=== PATIENT | male | born 1955 | race Caucasian/White ===

== ENCOUNTER 2017-09-09 18:34 | Inpatient (IN) | payer SELFPAY ==
[~2017-09-09] VITALS: Ht 180.3 cm; Wt 89.0 kg
[~2017-09-09 18:34] MED LIST: CPR500T PO; GBPN300C PO; HYDR-2890 PO; HYDR1TAB PO; LISI1TAB6 PO; LSNP10T PO; METR500T PO; MTF500T PO; POLY17PO23 GT; TRAM50TA2 PO; TRM50T PO; [UNRECOGNIZED DRUG - OTHER] PO
--- OUTSIDE RECORDS SUMMARY | 2017-09-09 18:38 | XMS REPORT | Continuity of Care Document ---
Author Author [facility] Organization [facility] Address Unknown Phone Unavailable Allergies There is no data. Medications There is no data. Problems Date Dx Coded Attending Type Code Diagnosis Diagnosed By 03/21/2013 250.60 DIABETES WITH NEUROLOGICAL MANIFESTATIONS TYPE II OR UNSPECIFIED TYPE NOT STATED UNCONTROLLED 03/21/2013 401.1 HYPERTENSION, BENIGN ESSENTIAL 03/21/2013 553.1 UMBILICAL HERNIA WITHOUT OBSTRUCTION OR GANGRENE 03/21/2013 V11.3 PERSONAL HISTORY OF ALCOHOLISM 03/21/2013 V65.42 COUNSELING - SMOKING CESSATION 03/21/2013 V70.0 ROUTINE GENERAL MEDICAL EXAMINATION AT A HEALTH CARE FACILITY 03/21/2013 BRYANT DOE DO 250.60 DIABETES WITH NEUROLOGICAL MANIFESTATIONS TYPE II OR UNSPECIFIED TYPE NOT STATED UNCONTROLLED 03/21/2013 BRYANT DOE DO 401.1 HYPERTENSION, BENIGN ESSENTIAL 03/21/2013 BRYANT DOE DO 553.1 UMBILICAL HERNIA WITHOUT OBSTRUCTION OR GANGRENE 03/21/2013 BRYANT DOE DO V11.3 PERSONAL HISTORY OF ALCOHOLISM 03/21/2013 BRYANT DOE DO V65.42 COUNSELING - SMOKING CESSATION 03/21/2013 BRYANT DOE DO V70.0 ROUTINE GENERAL MEDICAL EXAMINATION AT A HEALTH CARE FACILITY 03/21/2013 BRYANT DOE DO 250.60 DIABETES WITH NEUROLOGICAL MANIFESTATIONS TYPE II OR UNSPECIFIED TYPE NOT STATED UNCONTROLLED 03/21/2013 BRYANT DOE DO 401.1 HYPERTENSION, BENIGN ESSENTIAL 03/21/2013 BRYANT DOE DO 553.1 UMBILICAL HERNIA WITHOUT OBSTRUCTION OR GANGRENE 03/21/2013 BRYANT DOE DO V11.3 PERSONAL HISTORY OF ALCOHOLISM 03/21/2013 BRYANT DOE DO V65.42 COUNSELING - SMOKING CESSATION 03/21/2013 BRYANT DOE DO V70.0 ROUTINE GENERAL MEDICAL EXAMINATION AT A HEALTH CARE FACILITY 03/21/2013 BRYANT DOE DO 250.60 DIABETES WITH NEUROLOGICAL MANIFESTATIONS TYPE II OR UNSPECIFIED TYPE NOT STATED UNCONTROLLED 03/21/2013 BROOK LOWE BRYANT K 401.1 HYPERTENSION, BENIGN ESSENTIAL 03/21/2013 DOE DO BRYANT K 553.1 UMBILICAL HERNIA WITHOUT OBSTRUCTION OR GANGRENE 03/21/2013 BROOK LOWE BRYANT K V11.3 PERSONAL HISTORY OF ALCOHOLISM 03/21/2013 BROOK LOWE BRYANT K V65.42 COUNSELING - SMOKING CESSATION 03/21/2013 BROOK LOWE BRYANT K V70.0 ROUTINE GENERAL MEDICAL EXAMINATION AT A HEALTH CARE FACILITY 03/21/2013 BROOK LOWE BRYANT K 250.60 DIABETES WITH NEUROLOGICAL MANIFESTATIONS TYPE II OR UNSPECIFIED TYPE NOT STATED UNCONTROLLED 03/21/2013 BROOK LOWE BRYANT K 401.1 HYPERTENSION, BENIGN ESSENTIAL 03/21/2013 DOE DO BRYANT K 553.1 UMBILICAL HERNIA WITHOUT OBSTRUCTION OR GANGRENE 03/21/2013 BROOK LOWE BRYANT K V11.3 PERSONAL HISTORY OF ALCOHOLISM 03/21/2013 BROOK LOWE BRYANT K V65.42 COUNSELING - SMOKING CESSATION 03/21/2013 BROOK LOWE BRYANT K V70.0 ROUTINE GENERAL MEDICAL EXAMINATION AT A HEALTH CARE FACILITY 03/21/2013 BRYANT DOE DO K 250.60 DIABETES WITH NEUROLOGICAL MANIFESTATIONS TYPE II OR UNSPECIFIED TYPE NOT STATED UNCONTROLLED 03/21/2013 BELINDA DOE DOA K 401.1 HYPERTENSION, BENIGN ESSENTIAL 03/21/2013 BROOK LOWE BRYANT K 553.1 UMBILICAL HERNIA WITHOUT OBSTRUCTION OR GANGRENE 03/21/2013 BROOK LOWE BRYANT K V11.3 PERSONAL HISTORY OF ALCOHOLISM 03/21/2013 BROOK LOWE BRYANT K V65.42 COUNSELING - SMOKING CESSATION 03/21/2013 BROOK LOWE BRYANT K V70.0 ROUTINE GENERAL MEDICAL EXAMINATION AT A HEALTH CARE FACILITY 03/21/2013 BROOK LOWE BRYANT K 250.60 DIABETES WITH NEUROLOGICAL MANIFESTATIONS TYPE II OR UNSPECIFIED TYPE NOT STATED UNCONTROLLED 03/21/2013 RBOOK LOWE BRYANT K 401.1 HYPERTENSION, BENIGN ESSENTIAL 03/21/2013 BROOK LOWE BRYANT K 553.1 UMBILICAL HERNIA WITHOUT OBSTRUCTION OR GANGRENE 03/21/2013 BROOK LOWE BRYANT K V11.3 PERSONAL HISTORY OF ALCOHOLISM 03/21/2013 BROOK LOWE BRYANT K V65.42 COUNSELING - SMOKING CESSATION 03/21/2013 BROOK LOWE BRYANT K V70.0 ROUTINE GENERAL MEDICAL EXAMINATION AT A HEALTH CARE FACILITY 04/25/2013 BRYANT DOE DO 553.21 HERNIA- VENTRAL/INCISION 04/25/2013 BRYANT DOE DO 553.21 HERNIA- VENTRAL/INCISION 04/25/2013 BRYANT DOE DO 553.21 HERNIA- VENTRAL/INCISION 04/25/2013 BRYANT DOE DO 553.21 HERNIA- VENTRAL/INCISION 04/25/2013 DOE BRYANT LOWE 553.21 HERNIA- VENTRAL/INCISION 04/25/2013 BRYANT DOE DO 553.21 HERNIA- VENTRAL/INCISION 05/13/2013 BRYANT DOE DO 789.00 ABDOMINAL PAIN UNSPECIFIED SITE 05/13/2013 BRYANT DOE DO 789.00 ABDOMINAL PAIN UNSPECIFIED SITE 05/13/2013 BRYANT DOE DO 789.00 ABDOMINAL PAIN UNSPECIFIED SITE 05/13/2013 BRYANT DOE DO 789.00 ABDOMINAL PAIN UNSPECIFIED SITE 05/13/2013 BRYANT DOE DO 789.00 ABDOMINAL PAIN UNSPECIFIED SITE Procedures Code Description [place] [address] ROUTINE VENIPUNCTURE 03/21/2013 89505 A1C (IN-HOUSE) 03/21/2013 02419 CBC 03/21/2013 64922 CMP 03/21/2013 1649773 GFR CALC (RESULT ONLY) 03/21/2013 56723 VIT B 12 03/21/2013 43898 FOLATE 03/21/2013 75581 TSH 03/21/2013 GENERAL S DEV CUMMINGS 03/21/[address] CHEST W/DYE 04/25/[address] ABDOMEN W/ CONTRAST 04/25/2013 35228 US ABDOMEN ULTRASOUND, LIMITED (SPECIFY ORGAN) 05/13/2013 29344 A1C (IN-HOUSE) 08/26/2013 2028F FOOT EXAM PERFORMED 08/26/2013 Results There is no data. Encounters ACCT No. Visit Date/Time Discharge Status Pt. Type Provider Facility Loc./Unit Complaint [id number] 06/21/2013 11:02:00 06/21/2013 17:10:00 DIS Outpatient [id number] 06/16/2013 09:12:00 06/16/2013 23:59:59 CLS Outpatient [id number] 05/18/2013 08:00:00 05/18/2013 23:59:59 CLS Outpatient [id number] 04/27/2013 08:49:00 04/27/2013 23:59:59 CLS Outpatient [id number] 04/12/2013 13:20:00 04/12/2013 16:07:00 DIS Emergency [id number] 02/07/2013 08:57:00 02/07/2013 13:27:00 DIS Emergency [id number] 08/26/2013 09:37:00 08/26/2013 23:59:59 CLS Outpatient DOE DOBRYANT [id number] 08/26/2013 09:37:00 08/26/2013 23:59:59 CLS Outpatient DOE DOBRYANT [id number] 06/20/2013 13:28:00 06/20/2013 23:59:59 CLS Outpatient DOE DOBRYANT [id number] 05/13/2013 09:36:00 05/13/2013 23:59:59 CLS Outpatient DOE DOBRYANT [id number] 04/25/2013 15:41:00 04/25/2013 23:59:59 CLS Outpatient DOE DOBRYANT [id number] 04/25/2013 00:00:00 04/25/2013 23:59:59 CLS Outpatient DOE DOBRYANT [id number] 03/21/2013 13:47:00 Document Registration
[2017-09-09] MEDS ORDERED: ASPIRIN 81 MG CHEW (CHILDREN'S ASA) PO ONE ×2 (18:45)
[2017-09-09] MEDS ORDERED: FUROSEMIDE 40 MG/4 ML INJ (LASIX) IVP ONE (18:45)
[2017-09-09] MEDS ORDERED: methylPREDNISolone 125 MG (Solu-MEDROL) VIAL IVP ONE (18:45)
[2017-09-09] MEDS ORDERED: DEXAMETHASONE 4 MG/ML SDV (DECADRON) IH ONE (18:45)
[2017-09-09] MEDS ORDERED: RT-ALBUTEROL/IPRATROPIUM 3 ML (DUONEB) VIAL INH ONE (18:45)
[2017-09-09 19:00] VITALS: BP 179/121
[2017-09-09] MEDS ORDERED: NITROGLYCERIN 2% OINT 1 GM UNIT DOSE PACKET TOP ONE (19:00)
--- NOTE | 2017-09-09 19:00 | ED Dyspnea ---
General Chief Complaint: Respiratory Problems Stated Complaint: SOA Source of Information: Patient, Family (sister) History of Present Illness Date Seen by Provider: Sep 09, 2017 Time Seen by Provider: 18:32 Initial Comments PT ARRIVES VIA POV PT WITH SEVERE SHORTNESS OF BREATH STATES HE COULD FEEL IT COMING ON THE LAST COUPLE OF DAYS, BUT BECAME SEVERE A COUPLE OF HOURS AGO. HAS NOT BEEN ABLE TO LAY DOWN FOR THE LAST COUPLE OF DAYS, DUE TO NOT BEING ABLE TO BREATHE NO CHEST PAIN HAS HAD SWELLING IN BOTH FEET THE LAST COUPLE OF DAYS PT DIAPHORETIC ON ARRIVAL PT HAS HISTORY OF CHF AND THIS FEELS THE SAME. PT JUST GOT HERE A WEEK AGO. IS STAYING WITH SISTER IN [place]. USED TO LIVE HERE, THEN MOVED TO [place]. THEN 5 MONTHS AGO HE MOVED FROM [place] TO [place], [place]. THEN MOVED HERE A WEEK AGO FROM [place] PT IS SUPPOSED TO BE ON MULTIPLE MEDICATIONS, BUT HAS NOT HAD ANY OF HIS MEDICATIONS FOR 4 MONTHS PT STATES HE HAS HISTORY OF CHF, HTN, NIDDM, HYPERLIPIDEMIA, "SILENT HEART ATTACK"--NO CARDIAC CATH. PT ALSO SMOKES 2 PPD, BUT CLAIMS NO HISTORY OF COPD, CHRONIC BRONCHITIS OR PNEUMONIA DENIES COUGH, FEVER, RECENT ILLNESS. PCP: NONE Allergies and Home Medications Allergies Coded Allergies: No Known Drug Allergies (Unverified , 02/07/13) Home Medications Gabapentin 300 Mg Cap, 1,000 MG PO TID, (Reported) Hctz/Lisinopril 1 Each Tablet, 1 EACH PO DAILY, (Reported) Hydrocodone Bit/Acetaminophen 1 Each Tablet, 1-2 EACH PO EVERY 4-6HRS PRN, ( Reported) CALLED TO [facility] FIRST DOSE AT 4:00 Metformin Hcl 500 Mg Tablet, 1,000 MG PO BID, (Reported) HOLD TIL 06/23 Tramadol Hcl 50 Mg Tablet, 50 MG PO PRN, (Reported) Constitutional: diaphoresis EENTM: no symptoms reported Respiratory: see HPI, dyspnea on exertion, orthopnea, short of breath Cardiovascular: see HPI, No chest pain, edema, No palpitations, No syncope, vascular heart diseas Gastrointestinal: no symptoms reported Genitourinary: no symptoms reported Musculoskeletal: see HPI (LEG/FEET SWELLING. NO CALF PAIN) Skin: no symptoms reported Psychiatric/Neurological: No Symptoms Reported Endocrine: No Symptoms Reported Hematologic/Lymphatic: No Symptoms Reported Past Tswezgl-Omppfa-Xwmlzj Hx Seasonal Allergies Seasonal Allergies: No Reproductive System Hx Reproductive Disorders: No Sexually Transmitted Disease: No HIV/AIDS: No Gastrointestinal Gastrointestinal Disorders: Pancreatitis Endocrine Endocrine Disorders: Diabetes, Non-Insulin dep Blood Transfusions Adverse Reaction to a Blood Tr: No Physical Exam Vital Signs Capillary Refill : Progress/Results/Core Measures Results/Orders My Orders Orders - AILYN MARKS DO Amylase (09/09/17 18:38) Cbc With Automated Diff (09/09/17 18:38) Comprehensive Metabolic Panel (09/09/17 18:38) Creatine Kinase (09/09/17 18:38) Creatine Kinase Mb (09/09/17 18:38) Lipase (09/09/17 18:38) Partial Thromboplastin Time (09/09/17 18:38) Protime With Inr (09/09/17 18:38) Troponin I (09/09/17 18:38) Chest 1 View, Ap/Pa Only (09/09/17 18:38) O2 (09/09/17 18:38) Ekg Tracing (09/09/17 18:38) Aspirin Chewable Tablet (Baby Aspirin Ch (09/09/17 18:45) BNP (09/09/17 18:38) Monitor-Rhythm Ecg Trace Only (09/09/17 18:38) Alcohol (09/09/17 18:38) Arterial Blood Gas (09/09/17 18:38) Drug Screen Stat (Urine) (09/09/17 18:38) Magnesium (09/09/17 18:38) Blood Culture (09/09/17 18:38) Influenza A And B Antigens (09/09/17 18:38) Albuterol/Ipra Inhalation Soln (Duoneb I (09/09/17 18:45) Dexamethasone Injection (Decadron Inject (09/09/17 18:45) Rt Request For Service (09/09/17 18:38) Svn Sm Volume Nebulizer Rt-Rfs (09/09/17 18:38) Aspirin Chewable Tablet (Baby Aspirin Ch (09/09/17 18:45) Furosemide Injection (Lasix Injection) (09/09/17 18:45) Methylprednisolone Sod Succ (Solu-Medrol (09/09/17 18:45) Nitroglycerin Ointment (Nitrobid Ointme (1/31/18 19:00) Departure Departure-Patient Inst. Referrals: REED MOFFETT (PCP/Family) Primary Care Physician AILYN MARKS DO Sep 09, 2017 19:00
[2017-09-09 19:01] LABS: BASOPHILS # (AUTO) 0.1 10^3/uL (0.0-0.1); BASOPHILS % (AUTO) 1 % (0-10); EOSINOPHILS # (AUTO) 0.2 10^3/uL (0.0-0.3); EOSINOPHILS % (AUTO) 1 % (0-10); HEMATOCRIT 43 % (40-54); HEMOGLOBIN 14.6 G/DL (13.3-17.7); LYMPHOCYTES # (AUTO) 4.3 X 10^3 (1.0-4.0); LYMPHOCYTES % (AUTO) 29 % (12-44); MEAN CORPUSCULAR HEMOGLOBIN 30 PG (25-34); MEAN CORPUSCULAR HGB CONC 34 G/DL (32-36); MEAN CORPUSCULAR VOLUME 88 FL (80-99); MEAN PLATELET VOLUME 10.2 FL (7.4-10.4); MONOCYTES # (AUTO) 1.4 X 10^3 (0.0-1.0); MONOCYTES % (AUTO) 9 % (0-12); NEUTROPHILS # (AUTO) 8.9 X 10^3 (1.8-7.8); NEUTROPHILS % (AUTO) 60 % (42-75); PLATELET COUNT 266 10^3/uL (130-400); RED CELL DISTRIBUTION WIDTH 14.6 % (10.0-14.5); WHITE BLOOD COUNT 14.8 10^3/uL (4.3-11.0)
[2017-09-09 19:10] LABS: INR 0.9 (0.8-1.4); PROTHROMBIN TIME PATIENT 12.4 SEC (12.2-14.7)
[2017-09-09 19:22] LABS: BAND NEUTROPHILS 2 %; BASOPHILS % (MANUAL) 0 %; EOSINOPHILS % (MANUAL) 0 %; LYMPHOCYTES % (MANUAL) 40 %; MONOCYTES % (MANUAL) 6 %; NEUTROPHILS % (MANUAL) 52 %; RBC MORPH NORMAL
[2017-09-09 19:23] LABS: BILIRUBIN,TOTAL 0.5 MG/DL (0.1-1.0); CALCIUM 9.5 MG/DL (8.5-10.1); CREATININE SERUM 1.33 MG/DL (0.60-1.30); MAGNESIUM 2.2 MG/DL (1.8-2.4); POTASSIUM 3.8 MMOL/L (3.6-5.0); TOTAL PROTEIN 8.9 GM/DL (6.4-8.2)
--- NOTE | 2017-09-09 19:30 | Diagnostic Imaging Report ---
INDICATION: Shortness of breath. Portable chest 7:22 PM FINDINGS: Heart size and pulmonary vascularity are normal. Lungs are clear. There are no effusions or pneumothoraces. IMPRESSION: Negative chest. Dictated by: Dictated on workstation # [id number]
[2017-09-09 19:33] LABS: CREATINE KINASE MB 9.2 NG/ML (<6.6)
[2017-09-09] MEDS ORDERED: NITROGLYCERIN DRIP 25 MG/D5W 250 ML IV SCH (20:00)
[2017-09-09] MEDS ORDERED: lisINopril 10 MG (PRINIVIL) TAB PO ONE (20:00)
[2017-09-09] MEDS ORDERED: ENOXAPARIN 100 MG/1 ML (LOVENOX) SYR SC ONE (20:00)
--- OUTSIDE RECORDS SUMMARY | 2017-09-09 20:17 | XMS REPORT | Continuity of Care Document ---
Author Author [facility] Organization [facility] Address Unknown Phone Unavailable Allergies There is [...] 553.21 HERNIA- VENTRAL/INCISION 04/25/2013 BRYANT DOE DO K 553.21 HERNIA- VENTRAL/INCISION 04/25/2013 DOE BRYANT LOWE K 553.21 HERNIA- VENTRAL/INCISION 04/25/2013 DOE BRYANT LOWE K 553.21 HERNIA- VENTRAL/INCISION 04/25/2013 DOE BRYANT LOWE K 553.21 HERNIA- VENTRAL/INCISION 04/25/2013 BRYANT DOE DO K 553.21 HERNIA- VENTRAL/INCISION 05/13/2013 BRYANT DOE DO K 789.00 ABDOMINAL PAIN UNSPECIFIED SITE 05/13/2013 DOE BRYANT LOWE K 789.00 ABDOMINAL PAIN UNSPECIFIED SITE 05/13/2013 BRYANT DOE DO K 789.00 ABDOMINAL PAIN UNSPECIFIED SITE 05/13/2013 DOE BRYANT LOWE K 789.00 ABDOMINAL PAIN UNSPECIFIED SITE 05/13/2013 DOE BRYANT LOWE K 789.00 ABDOMINAL PAIN UNSPECIFIED SITE Procedures Code Description [place] [address] ROUTINE VENIPUNCTURE 03/21/2013 84638 A1C (IN-HOUSE) 03/21/2013 50413 CBC 03/21/2013 63892 CMP 03/21/2013 [id number] GFR CALC (RESULT ONLY) 03/21/2013 81076 VIT B 12 03/21/2013 63149 FOLATE 03/21/2013 49295 TSH 03/21/2013 GENERAL S DEV CUMMINGS 03/21/[address] CHEST W/DYE 04/25/[address] ABDOMEN W/ CONTRAST 04/25/2013 20011 US ABDOMEN ULTRASOUND, LIMITED (SPECIFY ORGAN) 05/13/2013 72182 A1C (IN-HOUSE) 08/26/2013 2028F FOOT EXAM PERFORMED 08/26/2013 Results Test Result Range Complete blood count (CBC) with automated white blood cell (WBC) differential - 09/09/17 18:49 Blood leukocytes automated count (number/volume) 14.8 10*3/uL 4.3-11.0 Blood erythrocytes automated count (number/volume) 4.90 10*6/uL 4.35-5.85 Venous blood hemoglobin measurement (mass/volume) 14.6 g/dL 13.3-17.7 Blood hematocrit (volume fraction) 43 % 40-54 Automated erythrocyte mean corpuscular volume 88 [foz_us] 80-99 Automated erythrocyte mean corpuscular hemoglobin (mass per erythrocyte) 30 pg 25-34 Automated erythrocyte mean corpuscular hemoglobin concentration measurement ( mass/volume) 34 g/dL 32-36 Automated erythrocyte distribution width ratio 14.6 % 10.0-14.5 Automated blood platelet count (count/volume) 266 10*3/uL 130-400 Automated blood platelet mean volume measurement 10.2 [foz_us] 7.4-10.4 Automated blood neutrophils/100 leukocytes 60 % 42-75 Automated blood lymphocytes/100 leukocytes 29 % 12-44 Blood monocytes/100 leukocytes 9 % 0-12 Automated blood eosinophils/100 leukocytes 1 % 0-10 Automated blood basophils/100 leukocytes 1 % 0-10 Blood neutrophils automated count (number/volume) 8.9 10*3 1.8-7.8 Blood lymphocytes automated count (number/volume) 4.3 10*3 1.0-4.0 Blood monocytes automated count (number/volume) 1.4 10*3 0.0-1.0 Automated eosinophil count 0.2 10*3/uL 0.0-0.3 Automated blood basophil count (count/volume) 0.1 10*3/uL 0.0-0.1 PT panel in platelet poor plasma by coagulation assay - 09/09/17 18:49 Prothrombin time (PT) in platelet poor plasma by coagulation assay 12.4 s 12.2-14.7 INR in platelet poor plasma or blood by coagulation assay 0.9 0.8-1.4 Activated partial thromboplastin time (aPTT) in platelet poor plasma bycoagulation assay - 09/09/17 18:49 Activated partial thromboplastin time (aPTT) in platelet poor plasma bycoagulation assay 24 s 24-35 Blood manual differential performed detection - 09/09/17 18:49 Blood monocytes/100 leukocytes 6 % NRG Manual blood segmented neutrophils/100 leukocytes 52 % NRG Blood band neutrophils/100 leukocytes 2 % NRG Manual blood lymphocytes/100 leukocytes 40 % NRG Manual eosinophils/100 leukocytes in nose 0 % NRG Manual blood basophils/100 leukocytes 0 % NRG Blood erythrocyte morphology finding identification NORMAL NR Comprehensive metabolic panel - 09/09/17 18:49 Serum or plasma sodium measurement (moles/volume) 138 mmol/L 135-145 Serum or plasma potassium measurement (moles/volume) 3.8 mmol/L 3.6-5.0 Serum or plasma chloride measurement (moles/volume) 101 mmol/L 98-107 Carbon dioxide 21 mmol/L 21-32 Serum or plasma anion gap determination (moles/volume) 16 mmol/L 5-14 Serum or plasma urea nitrogen measurement (mass/volume) 20 mg/dL 7-18 Serum or plasma creatinine measurement (mass/volume) 1.33 mg/dL 0.60-1.30 Serum or plasma urea nitrogen/creatinine mass ratio 15 NRG Serum or plasma creatinine measurement with calculation of estimated glomerular filtration rate 54 NRG Serum or plasma glucose measurement (mass/volume) 325 mg/dL 70-105 Serum or plasma calcium measurement (mass/volume) 9.5 mg/dL 8.5-10.1 Serum or plasma total bilirubin measurement (mass/volume) 0.5 mg/dL 0.1-1.0 Serum or plasma alkaline phosphatase measurement (enzymatic activity/volume) 89 U/L 40-136 Serum or plasma aspartate aminotransferase measurement (enzymatic activity/ volume) 43 U/L 5-34 Serum or plasma alanine aminotransferase measurement (enzymatic activity/volume ) 31 U/L 0-55 Serum or plasma protein measurement (mass/volume) 8.9 g/dL 6.4-8.2 Serum or plasma albumin measurement (mass/volume) 4.0 g/dL 3.2-4.5 Magnesium - 09/09/17 18:49 Magnesium 2.2 mg/dL 1.8-2.4 Serum or plasma creatine kinase measurement (enzymatic activity/volume) - 09/09 18:49 Serum or plasma creatine kinase measurement (enzymatic activity/volume) 241 U/L 30-200 Serum or plasma creatine kinase MB measurement (enzymatic activity/volume) - 18:49 Serum or plasma creatine kinase MB measurement (enzymatic activity/volume) 9.2 ng/mL <6.6 Serum or plasma troponin i.cardiac measurement (mass/volume) - 09/09/17 18:49 Serum or plasma troponin i.cardiac measurement (mass/volume) 1.10 ng /mL <0.30 Serum or plasma lithium measurement (moles/volume) - 09/09/17 18:49 BNP level 838.8 pg/mL <100.0 Serum or plasma amylase measurement (enzymatic activity/volume) - 09/09/17 18: 49 Serum or plasma amylase measurement (enzymatic activity/volume) 20 U /L 25-125 Lipase - 09/09/17 18:49 Lipase 15 U/L 8-78 Serum or plasma ethanol measurement (mass/volume) - 09/09/17 18:49 Serum or plasma ethanol measurement (mass/volume) 15 mg/dL <10 Encounters ACCT No. Visit Date/Time Discharge Status Pt. Type Provider Facility Loc./Unit Complaint [id number] 06/21/2013 11:02:00 06/21/2013 17:10:00 DIS Outpatient [id number] 06/16/2013 09:12:00 06/16/2013 23:59:59 CLS Outpatient [id number] 05/18/2013 08:00:00 05/18/2013 23:59:59 CLS Outpatient [id number] 04/27/2013 08:49:00 04/27/2013 23:59:59 CLS Outpatient [id number] 04/12/2013 13:20:00 04/12/2013 16:07:00 DIS Emergency [id number] 02/07/2013 08:57:00 02/07/2013 13:27:00 DIS Emergency [id number] 09/09/2017 19:02:00 Document Registration [id number] 08/26/2013 09:37:00 08/26/2013 23:59:59 CLS Outpatient DOE DOBRYANT [id number] 08/26/2013 09:37:00 08/26/2013 23:59:59 CLS Outpatient BRYANT DOE DO [id number] 06/20/2013 13:28:00 06/20/2013 23:59:59 CLS Outpatient DOE DOBRYANT [id number] 05/13/2013 09:36:00 05/13/2013 23:59:59 CLS Outpatient DOE DOBRYANT [id number] 04/25/2013 15:41:00 04/25/2013 23:59:59 CLS Outpatient DOE DOBRYANT [id number] 04/25/2013 00:00:00 04/25/2013 23:59:59 CLS Outpatient DOE DOBRYANT [id number] 03/21/2013 13:47:00 Document Registration
[2017-09-09 21:42] VITALS: BP 188/93
[2017-09-09 22:00] VITALS: BP 164/84
[2017-09-09] MEDS ORDERED: morphine INJ 4 MG/ML 1 ML (VIAL/SYRINGE) IV PRN (22:00)
[2017-09-09] MEDS ORDERED: NITROGLYCERIN DRIP 25 MG/250 ML D5W (PRE-MIX) IV SCH (22:00)
[2017-09-09] MEDS ORDERED: NITROGLYCERIN 0.4 MG SL TABS BTL 25'S SL PRN (22:00)
[2017-09-09 22:04] LABS: AMPHETAMINE SCREEN, URINE NEGATIVE (NEGATIVE); BARBITURATE SCREEN URINE NEGATIVE (NEGATIVE); BENZODIAZEPINES SCREEN URINE NEGATIVE (NEGATIVE); CANNABINOID SCREEN, URINE POSITIVE (NEGATIVE); COCAINE SCREEN URINE NEGATIVE (NEGATIVE); METHADONE STAT NEGATIVE (NEGATIVE); METHAMPHETAMINE SCREEN URINE S NEGATIVE (NEGATIVE); OPIATE SCREEN URINE NEGATIVE (NEGATIVE); OXYCODONE STAT NEGATIVE (NEGATIVE); PROPOXYPHENE STAT NEGATIVE (NEGATIVE); TRICYCLIC ANTIDEPRESSANTS SCRE NEGATIVE (NEGATIVE)
[2017-09-09 22:18] VITALS: BP 129/90
[2017-09-09] MEDS ORDERED: RT-ALBUTEROL/IPRATROPIUM 3 ML (DUONEB) VIAL INH PRN (22:30)
[2017-09-09] MEDS ORDERED: CLOPIDOGREL 300 MG (PLAVIX) TABLET PO ONE ×2 (22:57→23:45)
[2017-09-09 23:00] VITALS: BP 139/90
[2017-09-09] MEDS: OSELTAMIVIR 75 MG (TAMIFLU) BOX OF 10 PO SCH (23:00)
[2017-09-10] VITALS (24 sets, daily range): BP systolic 104–152; BP diastolic 48–96
[2017-09-10] MEDS: RT-ALBUTEROL/IPRATROPIUM 3 ML (DUONEB) VIAL IH SCH ×6 (02:13→21:47)
[2017-09-10] MEDS: FUROSEMIDE 40 MG/4 ML INJ (LASIX) IV SCH ×2 (03:26→08:51)
[2017-09-10 05:51] LABS: BASOPHILS % (AUTO) 0 % (0-10); EOSINOPHILS % (AUTO) 0 % (0-10); HEMATOCRIT 39 % (40-54); HEMOGLOBIN 13.1 G/DL (13.3-17.7); LYMPHOCYTES # (AUTO) 0.5 X 10^3 (1.0-4.0); LYMPHOCYTES % (AUTO) 8 % (12-44); MEAN CORPUSCULAR HEMOGLOBIN 30 PG (25-34); MEAN CORPUSCULAR HGB CONC 33 G/DL (32-36); MEAN CORPUSCULAR VOLUME 89 FL (80-99); MEAN PLATELET VOLUME 10.2 FL (7.4-10.4); MONOCYTES # (AUTO) 0.2 X 10^3 (0.0-1.0); MONOCYTES % (AUTO) 2 % (0-12); NEUTROPHILS # (AUTO) 6.1 X 10^3 (1.8-7.8); NEUTROPHILS % (AUTO) 90 % (42-75); PLATELET COUNT 230 10^3/uL (130-400); RED BLOOD COUNT 4.42 10^6/uL (4.35-5.85); RED CELL DISTRIBUTION WIDTH 14.1 % (10.0-14.5); WHITE BLOOD COUNT 6.8 10^3/uL (4.3-11.0)
[2017-09-10] MEDS ORDERED: inSUlin (REGULAR) HUMAN 1 UNIT/0.01 ML (CHARGE PER UNIT) SC SCH ×2 (06:00→08:00)
[2017-09-10 06:31] LABS: CALCIUM 9.3 MG/DL (8.5-10.1); CREATININE SERUM 1.63 MG/DL (0.60-1.30); MAGNESIUM 1.7 MG/DL (1.8-2.4); PHOSPHORUS 5.7 MG/DL (2.3-4.7); POTASSIUM 3.6 MMOL/L (3.6-5.0)
[2017-09-10] MEDS ORDERED: inSUlin DETERMIR 1 UNIT/0.01 ML (LEVEMIR) CHARGE PER UNIT SQ NR (06:57)
[2017-09-10] MEDS ORDERED: INFLUENZA TRIvalent 2017-2018 0.5 ML/45 MCG SYR IM ONE (07:00)
--- NOTE | 2017-09-10 07:31 | Diagnostic Imaging Report ---
INDICATION: Respiratory failure. COMPARISON: 09/09/2017. FINDINGS: Single frontal radiographic view of the chest was obtained and demonstrates normal cardiac silhouette and pulmonary vasculature. There is slight asymmetric elevation of the right hemidiaphragm. Otherwise, lungs are clear. There is no focal alveolar consolidation, large effusion, nor pneumothorax. Bony structures show no gross acute abnormality. IMPRESSION: 1. Slight asymmetric elevation of right hemidiaphragm. Otherwise, no acute cardiopulmonary process is identified. Dictated by: Dictated on workstation # [id number]
[2017-09-10] MEDS: ASPIRIN E.C. 325 MG (ECOTRIN) TABLET PO SCH (08:50)
[2017-09-10] MEDS: OSELTAMIVIR 75 MG (TAMIFLU) BOX OF 10 PO SCH (08:51)
[2017-09-10] MEDS ORDERED: lisINopril 10 MG (PRINIVIL) TAB PO SCH (09:00)
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
[2017-09-10] MEDS: GABAPENTIN 300 MG (NEURONTIN) CAP PO SCH ×3 (10:01→20:53)
[2017-09-10] MEDS ORDERED: CARV25TA PO (10:27)
[2017-09-10] MEDS ORDERED: METF1000 PO (10:27)
[2017-09-10] MEDS ORDERED: AMLO5TAB2 PO (10:27)
[2017-09-10] MEDS ORDERED: SITA100T12 PO (10:27)
[2017-09-10] MEDS ORDERED: MONT10TA24 PO (10:27)
[2017-09-10] MEDS ORDERED: GABA-488 PO (10:27)
[2017-09-10] MEDS ORDERED: lisINopril 10 MG (PRINIVIL) TAB PO NR (10:38)
[2017-09-10] MEDS: ENOXAPARIN 100 MG/1 ML (LOVENOX) SYR SC SCH ×2 (10:51→20:54)
[2017-09-10] MEDS: inSUlin ASPART (NovoLOG) 1 UNIT/0.01 ML (CHARGE PER UNIT) SC SCH ×2 (11:42→15:11)
--- NOTE | 2017-09-10 13:23 | Consultation-Cardiology ---
HPI-Cardiology Cardiology Consultation: Date of Consultation 09/10/17 Date of Admission Attending Physician Lorraine Guzman DO Admitting Physician Kevin Gee Consulting Physician Ignacio FLORENTINO MD HPI: Time Seen by Provider: 12:30 Chief Complaint: Shortness of breath, chest pain This is a 59-year-old gentleman with diabetes, severe hypertension, active smoking, chronic kidney disease, who presents with severe shortness of breath and orthopnea. He also had chest pain. His been having worsening shortness of breath in the last few days however yesterday he couldn't be and came to the ER. He has not been taking any medications for the last 4 months. Review of Systems-Cardiology Review of Systems Constitutional: No As described under HPI, No no symptoms reported, No chills, No fever, No lightheadedness, No malaise, No tiredness, No weight loss, No weight gain, No other Eyes: No As described under HPI, No no symptoms reported, No blindness, No blurred vision, No contact lenses, No drainage, No decreased acuity, No foreign body sensation, No glasses, No inflammation, No pain, No photophobia, No previous injury, No shadows, No tunnel vision, No other, No vision change Ears/Nose/Throat: No As described under HPI, No no symptoms reported, No chronic hearing loss, No epistaxis, No ear discharge, No ear pain, No loose teeth, No mouth pain, No mouth swelling, No nasal drainage, No nose pain, No recent hearing loss, No throat pain, No throat swelling, No ulcerations, No other Respiratory: orthopnea, shortness of breath Cardiovascular: chest pain Gastrointestinal: No no symptoms reported, No As described under HPI, No abdomen distended, No abdominal pain, No blood streaked bowels, No constipation , No diarrhea, No difficulty swallowing, No nausea, No poor appetite, No poor fluid intake, No rectal bleeding, No vomiting, No other, No nausea/vomiting/ diarrhea, No stool coloration changes Genitourinary: No no symptoms reported, No As described under HPI, No burning, No dysuria, No discharge, No frequency, No flank pain, No hematuria, No incontinence, No pain, No urgency, No other, No urine frequency changes, No urine coloration changes Musculoskeletal: No no symptoms reported, No As describe under HPI, No back pain, No gout, No joint pain, No joint swelling, No muscle pain, No muscle stiffness, No neck pain, No other Skin: No no symptoms reported, No As described under HPI, No change in color, No change in hair/nails, No dryness, No lesions, No lumps, No rash, No other, No skin related problems, No ulcerations, No rash on exposed areas, No ulcerations on exposed areas Psychiatric/Neurological: No no symptoms reported, No As described under HPI, No anxiety, No depression, No emotional problems, No headache, No numbness, No pre-existing deficit, No seizure, No tingling, No tremors, No weakness, No other , No focal weakness, No syncope All Other Systems Reviewed Negative Unless Noted: Yes EHL-Vsrhvt-Hjlepk Hx Patient Social History Marrital Status: single 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 Allergies and Home Medications Allergies Coded Allergies: No Known Drug Allergies (Unverified , 02/07/13) Home Medications Amlodipine Besylate 5 Mg Tablet, 5 MG PO DAILY, (Reported) LAST FILLED #30 04-02-17 Carvedilol 25 Mg Tablet, 25 MG PO BID, (Reported) LAST FILLED #60 03-30-17 Gabapentin 300 Mg Capsule, 600 MG PO TID, (Reported) Metformin HCl 1,000 Mg Tablet, 1,000 MG PO BID, (Reported) LAST FILLED #60 04-02-17 Montelukast Sodium 10 Mg Tablet, 10 MG PO DAILY, (Reported) LAST FILLED #30 04-02-17 Sitagliptin Phosphate 100 Mg Tablet, 100 MG PO DAILY, (Reported) LAST FILLED #30 04-02-17 Physical Exam-Cardiology Physical Exam Vital Signs/I&O Vital Sign - Last 12Hours 09/10/17 09/10/17 09/10/17 09/10/17 09:12 10:00 11:00 11:05 Pulse 100 105 104 Resp 16 16 17 B/P (MAP) 159/93 114/59 (77) 136/64 (88) Pulse Ox 93 92 92 O2 Delivery Nasal Cannula Nasal Cannula Nasal Cannula Nasal Cannula O2 Flow Rate 2.00 2.00 2.00 2.00 09/10/17 09/10/17 09/10/17 09/10/17 11:43 11:43 12:00 13:00 Temp 98.3 Pulse 115 105 Resp 26 B/P (MAP) 104/55 (71) Pulse Ox 92 O2 Delivery Nasal Cannula Nasal Cannula Nasal Cannula O2 Flow Rate 2.00 2.00 2.00 09/10/17 09/10/17 09/10/17 09/10/17 13:00 14:00 15:00 15:07 Temp 98.3 Pulse 105 104 101 Resp 15 16 15 B/P (MAP) 120/59 (79) 130/73 (92) 136/79 (98) Pulse Ox 91 94 95 O2 Delivery Nasal Cannula Nasal Cannula Nasal Cannula Nasal Cannula O2 Flow Rate 2.00 2.00 2.00 2.00 09/10/17 09/10/17 09/10/17 09/10/17 15:07 16:00 17:00 18:00 Pulse 103 101 102 Resp 24 20 24 B/P (MAP) 125/66 (85) 135/69 (91) 132/93 (106) Pulse Ox 95 93 94 O2 Delivery Nasal Cannula Nasal Cannula Nasal Cannula Nasal Cannula O2 Flow Rate 2.00 2.00 2.00 2.00 09/10/17 18:59 Pulse Ox 93 O2 Delivery Nasal Cannula O2 Flow Rate 2.00 Intake and Output 09/10/17 00:00 Intake Total 218 ml Output Total 625 ml Balance -407 ml Capillary Refill : Less Than 3 Seconds Constitutional: No appears stated age, No AAO x 3, No apparent distress, No PERRL, No well-developed, No well-nourished, No other HEENT: No PERRL, No normal ENT inspection, No TMs normal, No pharynx normal, No scleral icterus (R), No scleral icterus (L), No pale conjunctivae (R), No pale conjunctivae (L), No photophobia, No TM abnormal (R), No TM abnormal (L), No pharyngeal erythema, No tonsillar exudate, No other, No discharge, No EOMI, No hearing is well preserved, No hard of hearing, No oral hygience is good, No ulceration, No xanthelasmas are seen Neck: No non-tender, No full range of motion, No supple, No normal inspection, No carotid bruit, No limited range of motion, No lymphadenopathy (R), No lymphadenopathy (L), No tender lateral, No tender midline, No thyromegaly, No other, No carotid pulses are 2 + bilaterally, No with good upstrokes Respiratory: crackles Cardiovascular: No regular rate-rhythm, No irregularly irregular, No extra beats, No parasternal heave is noted, No JVD, No edema, No bradycardia, No tachycardia, No point of maximal impulse, No cardiac thrills are palpable, No S1 and S2, No gallop/S3, No gallop/S4, No diastolic murmur, No systolic murmur, No friction rub, No click, No other Gastrointestinal: No tender, No soft, No round, No distended, No pulsatile mass , No organomegaly, No guarding, No rebound, No tenderness, No hernia, No mass, No audible bowel sounds, No abnormal bowel sounds, No abdominal bruits, No spleenomegaly, No other Rectal: deferred Extremities: No normal range of motion, No non-tender, No normal inspection, pedal edema, No calf tenderness, No normal capillary refill, No pelvis stable, No calf tenderness, No inflammation, No pedal edema, No slow capillary refill, No swelling, No other, No abrasion, No clubbing, No cyanosis, No ecchymosis, No laceration, No no lower extremity edema bilateral, No significant edema, No tenderness, No wound Neurologic/Psychiatric: No antiquer II-XII nml as tested, No no motor/sensory deficits, No alert, No normal mood/affect, No oriented x 3, No abnormal cerebellar tests, No abnormal antiquer II-XII, No abnormal gait, No aphasia, No EOM palsy, No facial droop, No motor weakness, No sensory deficit, No depressed affect, No disoriented x 3, No other, No grossly intact, No power is 5/5 both on sides Skin: No normal color, No warm/dry, No cyanosis, No cool, No diaphoresis, No damp, No ecchymosis, No jaundice, No mottled, No pallor, No rash, No tattoos/ piercings, No ulcerations, No rash on exposed areas, No ulcerations on exposed areas, No other Data Review Labs Laboratory Tests 09/09/17 21:45: Urine Opiates Screen NEGATIVE, Urine Oxycodone Screen NEGATIVE, Urine Methadone Screen NEGATIVE, Urine Propoxyphene Screen NEGATIVE, Urine Barbiturates Screen NEGATIVE, Ur Tricyclic Antidepressants Screen NEGATIVE, Urine Phencyclidine Screen NEGATIVE, Urine Amphetamines Screen NEGATIVE, Urine Methamphetamines Screen NEGATIVE, Urine Benzodiazepines Screen NEGATIVE, Urine Cocaine Screen NEGATIVE, Urine Cannabinoids Screen POSITIVEH 09/09/17 23:45: Troponin I 1.78*H 09/10/17 05:30: Troponin I 1.00*H, White Blood Count 6.8, Red Blood Count 4.42, Hemoglobin 13.1L , Hematocrit 39L, Mean Corpuscular Volume 89, Mean Corpuscular Hemoglobin 30, Mean Corpuscular Hemoglobin Concent 33, Red Cell Distribution Width 14.1, Platelet Count 230, Mean Platelet Volume 10.2, Neutrophils (%) (Auto) 90H, Lymphocytes (%) (Auto) 8L, Monocytes (%) (Auto) 2, Eosinophils (%) (Auto) 0, Basophils (%) (Auto) 0, Neutrophils # (Auto) 6.1, Lymphocytes # (Auto) 0.5L, Monocytes # (Auto) 0.2, Eosinophils # (Auto) 0.0, Basophils # (Auto) 0.0, D- Dimer 0.74H, Sodium Level 136, Potassium Level 3.6, Chloride Level 97L, Carbon Dioxide Level 21, Anion Gap 18H, Blood Urea Nitrogen 25H, Creatinine 1.63H, Estimat Glomerular Filtration Rate 43, BUN/Creatinine Ratio 15, Glucose Level 504*H, Calcium Level 9.3, Phosphorus Level 5.7H, Magnesium Level 1.7L, B-Type Natriuretic Peptide 868.7H, Triglycerides Level 134, Cholesterol Level 179, LDL Cholesterol Direct 126, VLDL Cholesterol 27, HDL Cholesterol 31L 09/10/17 08:47: Glucometer 484*H 09/10/17 10:30: 09/10/17 11:32: Glucometer 454*H 09/10/17 14:45: Urine Color YELLOW, Urine Clarity CLEAR, Urine pH 5, Urine Specific [place] 1.010L, Urine Protein 2+H, Urine Glucose (UA) 4+H, Urine Ketones NEGATIVE, Urine Nitrite NEGATIVE, Urine Bilirubin NEGATIVE, Urine Urobilinogen NORMAL, Urine Leukocyte Esterase NEGATIVE, Urine RBC (Auto) NEGATIVE, Urine RBC NONE, Urine WBC NONE, Urine Squamous Epithelial Cells 2-5, Urine Crystals NONE, Urine Bacteria NONE, Urine Casts PRESENT, Urine Hyaline Casts 10-25H, Urine Mucus NEGATIVE, Urine Culture Indicated NO 09/10/17 15:04: Glucometer 414*H Microbiology 09/09/17 Blood Culture - Preliminary, Resulted No growth 09/09/17 Influenza Types A,B Antigen (TYRONE) - Final, Complete ECG Impression ECG Initial ECG Rhythm: Normal Sinus Initial ECG Impression: Nonspecific Changes A/P-Cardiology Assessment/Admission Diagnosis Severe hypoxia with influenza, Acute diastolic congestive heart failure, Non-ST elevation [place], Diabetes, Acute kidney injury, Severe hypertension, Active smoking Plan Severe hypoxia with influenza, treat with Tamiflu. Defer to primary service. Acute diastolic congestive heart failure, treated overnight with IV Lasix however we will hold IV Lasix due to worsening creatinine. Elevated BNP. Echocardiogram. Non-ST elevation MN, no further chest pain on my interview. Coronary angiography has been delayed until patient improves from his acute influenza and improvement in kidney function. Will plan on Thursday or Thursday Diabetes, insulin Acute kidney injury, chronic kidney disease likely secondary to diabetic nephropathy. Worsening due to acute systemic illness with flu and likely diuresis. Severe hypertension, initially given nitroglycerin infusion. We'll start JOSÉ LUIS inhibitor and discontinue nitroglycerin. Active smoking Thank you for your consultation. Please call me if you have any questions. Araceli Florentino MD, FACP, FACC, FSCAI, FHRS, CCDS Interventional Cardiology Cardiac Electrophysiology Vascular Medicine and Endovascular Interventions Clinical Quality Measures DVT/VTE Risk/Contraindication: Risk Factor Score Per Nursin RFS Level Per Nursing on Admit: 4+=Very High Ignacio FLORENTINO MD Sep 10, 2017 1:23 pm
--- NOTE | 2017-09-10 15:37 | Pulmonary Consultation ---
History of Present Illness History of Present Illness Date of Consultation 09/10/17 15:32 Date of Admission Allergies and Home Medications Allergies Coded Allergies: No Known Drug Allergies (Unverified , 02/07/13) Home Medications Amlodipine Besylate 5 Mg Tablet, 5 MG PO DAILY, (Reported) LAST FILLED #30 04-02-17 Carvedilol 25 Mg Tablet, 25 MG PO BID, (Reported) LAST FILLED #60 03-30-17 Gabapentin 300 Mg Capsule, 600 MG PO TID, (Reported) Metformin HCl 1,000 Mg Tablet, 1,000 MG PO BID, (Reported) LAST FILLED #60 04-02-17 Montelukast Sodium 10 Mg Tablet, 10 MG PO DAILY, (Reported) LAST FILLED #30 04-02-17 Sitagliptin Phosphate 100 Mg Tablet, 100 MG PO DAILY, (Reported) LAST FILLED #30 04-02-17 Past Ujbrtst-Dwoqir-Yufnyp Hx Patient Social History Alcohol Use: Past History Recreational Drug Use: Yes Drug of Choice: OCCASIONAL MARIJUANA USE Smoking Status: Current Everyday Smoker Type Used: Cigarettes, Electronic/Vapor Recent Foreign Travel: No Contact w/Someone Who Travel: No Recent Infectious Disease Expo: No Recent Hopitalizations: No Physical Abuse: No Sexual Abuse: No Mistreated: No Fear: No Immunizations Up To Date PED Vaccines UTD: No Date of Pneumonia Vaccine: Sep 09, 2014 Seasonal Allergies Seasonal Allergies: No Surgeries History of Surgeries: Yes (HERNIA REPAIR) Respiratory History of Respiratory Disorde: Yes (HX OF CHF-RESP DISTRESS) Currently Using CPAP: No Currently Using BIPAP: No Cardiovascular History of Cardiac Disorders: Yes ("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[place]") Cardiac Disorders: Heart Attack, High Cholesterol, Hypertension Neurological History of Neurological Disord: Yes (NEUROPATHY IN FEET) Neurological Disorders: Neuropathy Reproductive System Hx Reproductive Disorders: No Sexually Transmitted Disease: No HIV/AIDS: No Genitourinary History of Genitourinary Disor: Yes Genitourinary Disorders: Renal Failure Gastrointestinal History of Gastrointestinal Di: Yes (VENTRAL HERNIA) Gastrointestinal Disorders: Pancreatitis Musculoskeletal History of Musculoskeletal Dis: No Endocrine History of Endocrine Disorders: Yes Endocrine Disorders: Diabetes, Non-Insulin dep Are Your Blood Sugars Over 250: No HEENT History of HEENT Disorders: No Cancer History of Cancer: No Psychosocial History of Psychiatric Problem: Yes Behavioral Health Disorders: Anxiety, Depression Suicide Risk Score: 0 Integumentary History of Skin or Integumenta: No Blood Transfusions History of Blood Disorders: No Adverse Reaction to a Blood Tr: No Exam Exam Vital Signs Date Time Temp Pulse Resp B/P (MAP) Pulse Ox O2 Delivery O2 Flow Rate FiO2 09/10/17 15:07 98.3 Nasal Cannula 2.00 09/10/17 15:00 101 15 136/79 (98) 95 Nasal Cannula 2.00 09/10/17 14:00 104 16 130/73 (92) 94 Nasal Cannula 2.00 09/10/17 13:00 105 15 120/59 (79) 91 Nasal Cannula 2.00 09/10/17 13:00 105 09/10/17 12:00 115 26 104/55 (71) 92 Nasal Cannula 2.00 09/10/17 11:43 98.3 Nasal Cannula 2.00 09/10/17 11:05 Nasal Cannula 2.00 09/10/17 11:00 104 17 136/64 (88) 92 Nasal Cannula 2.00 09/10/17 10:00 105 16 114/59 (77) 92 Nasal Cannula 2.00 09/10/17 09:12 100 16 159/93 93 Nasal Cannula 2.00 09/10/17 09:00 109 31 142/71 (94) 94 Nasal Cannula 2.00 09/10/17 08:50 98.2 Nasal Cannula 2.00 09/10/17 08:00 104 15 142/76 (98) 91 Nasal Cannula 2.00 09/10/17 07:00 102 18 144/83 (103) 93 Nasal Cannula 2.00 09/10/17 07:00 105 09/10/17 06:49 Nasal Cannula 2.00 09/10/17 06:00 102 19 138/88 (105) 95 Nasal Cannula 2.00 09/10/17 05:00 122 25 143/77 (99) 93 Nasal Cannula 2.00 09/10/17 04:00 96 14 131/59 (83) 94 Nasal Cannula 2.00 09/10/17 04:00 Nasal Cannula 2.00 09/10/17 03:27 96.8 09/10/17 03:27 95 128/54 09/10/17 03:00 96 13 113/58 (76) 92 Nasal Cannula 2.00 09/10/17 03:00 98 113/58 09/10/17 02:13 94 Nasal Cannula 2.00 09/10/17 02:00 89 16 119/67 (84) 94 Nasal Cannula 2.00 09/10/17 01:20 90 118/75 09/10/17 01:00 92 15 127/65 (85) 94 Nasal Cannula 2.00 09/10/17 01:00 96 09/10/17 00:00 Nasal Cannula 2.00 09/10/17 00:00 98.1 99 25 132/80 (97) 95 Nasal Cannula 2.00 09/09/17 23:02 103 133/116 09/09/17 23:00 101 22 139/90 (106) 92 Nasal Cannula 2.00 09/09/17 22:23 96 Nasal Cannula 2.00 09/09/17 22:21 100 173/122 09/09/17 22:18 100 96 09/09/17 22:11 NIV Bilevel 40 09/09/17 22:08 96 20 97 40.00 09/09/17 22:00 92 23 164/84 (110) 97 Nasal Cannula 2.00 09/09/17 21:50 94 09/09/17 21:42 96.9 101 18 188/93 (124) 99 NIV Bilevel 40.00 09/09/17 21:40 105 188/93 09/09/17 21:40 106 30 99 50.00 09/09/17 21:22 98.9 94 20 97 NIV Bilevel 09/09/17 20:29 98.2 98 15 149/96 98 NIV/Bilevel 09/09/17 19:28 94 OxyMask 15.00 09/09/17 19:28 98.2 97 26 182/94 (123) 98 NIV/Bilevel 09/09/17 19:00 109 21 98 100.00 I & O 09/10/17 07:00 Intake Total 418 ml Output Total 1975 ml Balance -1557 ml General Appearance: No Apparent Distress, WD/WN, Chronically ill, Obese HEENT: PERRL/EOMI, Normal ENT Inspection, Pharynx Normal Neck: Full Range of Motion, Normal Inspection, Non Tender, Supple, Carotid Bruit Respiratory: Chest Non Tender, No Accessory Muscle Use, No Respiratory Distress , Crackles, Decreased Breath Sounds Cardiovascular: No Edema, No Gallop, No JVD, No Murmur, Normal Peripheral Pulses, Tachycardia Capillary Refill: Less Than 3 Seconds Extremity: Normal Capillary Refill, Normal Inspection, Normal Range of Motion, Non Tender, No Calf Tenderness, No Pedal Edema Neurologic/Psychiatric: Alert, Oriented x3, No Motor/Sensory Deficits, Normal Mood/Affect Skin: Normal Color, Warm/Dry Lymphatic: No Adenopathy Results Lab Laboratory Tests 09/09/17 18:49 09/10/17 05:30 Assessment/Plan Assessment/Plan Acute respiratory failure -BIPAP PRN -OXygen - NSTEMI Tobacco dependance COPD AE -Start SOlumedrol -SVNs CHF 255 Clinical Quality Measures DVT/VTE Risk/Contraindication: Risk Factor Score Per Nursin RFS Level Per Nursing on Admit: 4+=Very High MARTHA HERNANDES DO Sep 10, 2017 15:37
[2017-09-10 15:56] LABS: BILIRUBIN,URINE NEGATIVE (NEGATIVE); CLARITY,URINE CLEAR; COLOR,URINE YELLOW; GLUCOSE, URINE (UA) 4+ (NEGATIVE); KETONES,URINE NEGATIVE (NEGATIVE); LEUKOCYTE ESTERASE ,URINE NEGATIVE (NEGATIVE); NITRITE,URINE NEGATIVE (NEGATIVE); PH,URINE 5 (5-9); PROTEIN,URINE 2+ (NEGATIVE); UROBILINOGEN,URINE NORMAL (NORMAL)
[2017-09-10] MEDS: methylPREDNISolone 40 MG/ML (Solu-MEDROL) VIAL IV SCH ×2 (18:44→23:45)
[2017-09-10] MEDS: OSELTAMIVIR 30 MG (TAMIFLU) BOX OF 10 PO SCH (20:54)
[2017-09-10] MEDS ORDERED: inSUlin DETERMIR 1 UNIT/0.01 ML (LEVEMIR) CHARGE PER UNIT SQ SCH (21:00)
[2017-09-11] VITALS (21 sets, daily range): BP systolic 102–155; BP diastolic 48–94
[2017-09-11] MEDS: RT-ALBUTEROL/IPRATROPIUM 3 ML (DUONEB) VIAL IH SCH ×6 (01:31→23:05)
[2017-09-11 05:24] LABS: BASOPHILS % (AUTO) 0 % (0-10); EOSINOPHILS % (AUTO) 0 % (0-10); HEMATOCRIT 39 % (40-54); HEMOGLOBIN 13.2 G/DL (13.3-17.7); LYMPHOCYTES # (AUTO) 0.5 X 10^3 (1.0-4.0); LYMPHOCYTES % (AUTO) 4 % (12-44); MEAN CORPUSCULAR HEMOGLOBIN 30 PG (25-34); MEAN CORPUSCULAR HGB CONC 34 G/DL (32-36); MEAN CORPUSCULAR VOLUME 89 FL (80-99); MEAN PLATELET VOLUME 10.2 FL (7.4-10.4); MONOCYTES # (AUTO) 0.2 X 10^3 (0.0-1.0); MONOCYTES % (AUTO) 2 % (0-12); NEUTROPHILS # (AUTO) 12.4 X 10^3 (1.8-7.8); NEUTROPHILS % (AUTO) 95 % (42-75); PLATELET COUNT 259 10^3/uL (130-400); RED BLOOD COUNT 4.42 10^6/uL (4.35-5.85); RED CELL DISTRIBUTION WIDTH 14.4 % (10.0-14.5); WHITE BLOOD COUNT 13.1 10^3/uL (4.3-11.0)
[2017-09-11 05:49] LABS: CALCIUM 8.9 MG/DL (8.5-10.1); CREATININE SERUM 1.65 MG/DL (0.60-1.30); MAGNESIUM 2.1 MG/DL (1.8-2.4); PHOSPHORUS 5.9 MG/DL (2.3-4.7); POTASSIUM 3.9 MMOL/L (3.6-5.0)
[2017-09-11] MEDS ORDERED: POTASSIUM CL 10MEQ/50ML IVPB 50 ML IV SCH (06:00)
[2017-09-11] MEDS ORDERED: MAGNESIUM 1 GM/100 ML IVPB 100 ML IV SCH (06:00)
[2017-09-11] MEDS ORDERED: KCL 20 MEQ TAB (K-DUR) PO SCH (06:00)
--- NOTE | 2017-09-11 06:06 | Pulmonary Progress Note ---
Subjective Time Seen by Provider: 06:05 Subjective/Events-last exam No complications noted. Exam Exam Vital Signs Date Time Temp Pulse Resp B/P (MAP) Pulse Ox O2 Delivery O2 Flow Rate FiO2 09/11/17 04:00 Nasal Cannula 2.00 09/11/17 04:00 98.2 86 16 106/48 (67) 92 Nasal Cannula 2.00 09/11/17 03:00 96 12 108/55 (72) 95 Nasal Cannula 2.00 09/11/17 02:00 98 12 106/56 (73) 97 Nasal Cannula 2.00 09/11/17 01:31 94 Nasal Cannula 2.00 09/11/17 01:00 96 12 116/61 (79) 95 Nasal Cannula 2.00 09/11/17 01:00 96 09/11/17 00:00 Nasal Cannula 2.00 09/11/17 00:00 98.0 103 12 102/56 (71) 96 Nasal Cannula 2.00 09/10/17 23:00 106 13 104/48 (66) 91 Nasal Cannula 2.00 09/10/17 22:00 118 18 152/62 (92) 94 Nasal Cannula 2.00 09/10/17 21:48 94 Nasal Cannula 2.00 09/10/17 21:00 108 17 114/96 (102) 93 Nasal Cannula 2.00 09/10/17 20:00 Nasal Cannula 2.00 09/10/17 20:00 98.4 105 20 149/65 (93) 90 Nasal Cannula 2.00 09/10/17 19:00 96 09/10/17 19:00 96 18 146/74 (98) 97 Nasal Cannula 2.00 09/10/17 18:59 93 Nasal Cannula 2.00 09/10/17 18:00 102 24 132/93 (106) 94 Nasal Cannula 2.00 09/10/17 17:00 101 20 135/69 (91) 93 Nasal Cannula 2.00 09/10/17 16:00 103 24 125/66 (85) 95 Nasal Cannula 2.00 09/10/17 15:07 Nasal Cannula 2.00 09/10/17 15:07 98.3 Nasal Cannula 2.00 09/10/17 15:00 101 15 136/79 (98) 95 Nasal Cannula 2.00 09/10/17 14:00 104 16 130/73 (92) 94 Nasal Cannula 2.00 09/10/17 13:00 105 15 120/59 (79) 91 Nasal Cannula 2.00 09/10/17 13:00 105 09/10/17 12:00 115 26 104/55 (71) 92 Nasal Cannula 2.00 09/10/17 11:43 98.3 Nasal Cannula 2.00 09/10/17 11:43 Nasal Cannula 2.00 09/10/17 11:05 Nasal Cannula 2.00 09/10/17 11:00 104 17 136/64 (88) 92 Nasal Cannula 2.00 09/10/17 10:00 105 16 114/59 (77) 92 Nasal Cannula 2.00 09/10/17 09:12 100 16 159/93 93 Nasal Cannula 2.00 09/10/17 09:00 109 31 142/71 (94) 94 Nasal Cannula 2.00 09/10/17 08:50 Nasal Cannula 2.00 09/10/17 08:50 98.2 Nasal Cannula 2.00 09/10/17 08:00 104 15 142/76 (98) 91 Nasal Cannula 2.00 09/10/17 07:00 102 18 144/83 (103) 93 Nasal Cannula 2.00 09/10/17 07:00 105 09/10/17 06:49 Nasal Cannula 2.00 I & O 09/11/17 07:00 Intake Total 1600 ml Output Total 1650 ml Balance -50 ml General Appearance: No Apparent Distress, WD/WN, Chronically ill, Obese HEENT: PERRL/EOMI, Normal ENT Inspection, Pharynx Normal Neck: Full Range of Motion, Normal Inspection, Non Tender, Supple, Carotid Bruit Respiratory: Chest Non Tender, No Accessory Muscle Use, No Respiratory Distress , Crackles, Decreased Breath Sounds Cardiovascular: No Edema, No Gallop, No JVD, No Murmur, Normal Peripheral Pulses, Tachycardia Capillary Refill: Less Than 3 Seconds Extremity: Normal Capillary Refill, Normal Inspection, Normal Range of Motion, Non Tender, No Calf Tenderness, No Pedal Edema Neurologic/Psychiatric: Alert, Oriented x3, No Motor/Sensory Deficits, Normal Mood/Affect Skin: Normal Color, Warm/Dry Lymphatic: No Adenopathy Results Lab Laboratory Tests 09/09/17 18:49 09/10/17 05:30 09/11/17 05:05 Assessment/Plan Assessment/Plan Acute respiratory failure with hypoxia -BIPAP PRN -OXygen Atelectasis -IS -increase activity NSTEMI Tobacco dependance COPD AE -Start SOlumedrol -SVNs CHF - diastolic DM -Increase Levemir -give premeal insulin now 233 Severe hypoxia with influenza, Clinical Quality Measures DVT/VTE Risk/Contraindication: Risk Factor Score Per Nursin RFS Level Per Nursing on Admit: 4+=Very High MARTHA HERNANDES DO Sep 11, 2017 06:06
[2017-09-11] MEDS: methylPREDNISolone 40 MG/ML (Solu-MEDROL) VIAL IV SCH ×4 (06:11→23:39)
[2017-09-11] MEDS: inSUlin ASPART (NovoLOG) 1 UNIT/0.01 ML (CHARGE PER UNIT) SC SCH ×3 (06:12→17:05)
[2017-09-11] MEDS: inSUlin DETERMIR 1 UNIT/0.01 ML (LEVEMIR) CHARGE PER UNIT SQ SCH ×2 (06:13→22:10)
--- NOTE | 2017-09-11 07:25 | Diagnostic Imaging Report ---
INDICATION: Respiratory failure. Comparison made with prior examination 09/10/2017. FINDINGS: There is cardiomegaly. There is some venous congestion. There is right basilar atelectasis and/or pneumonitis. There is no pleural effusion or pneumothorax. Mediastinum is unremarkable. IMPRESSION: Right basilar atelectasis and/or pneumonitis. Cardiomegaly and mild central pulmonary venous congestion. Dictated by: Dictated on workstation # [id number]
[2017-09-11] MEDS: lisINopril 20 MG (ZESTRIL) TAB PO SCH (09:03)
[2017-09-11] MEDS: GABAPENTIN 300 MG (NEURONTIN) CAP PO SCH ×3 (09:03→22:09)
[2017-09-11] MEDS: OSELTAMIVIR 30 MG (TAMIFLU) BOX OF 10 PO SCH ×2 (09:03→22:09)
[2017-09-11] MEDS: ASPIRIN E.C. 325 MG (ECOTRIN) TABLET PO SCH (09:03)
[2017-09-11] MEDS: ENOXAPARIN 100 MG/1 ML (LOVENOX) SYR SC SCH ×2 (09:04→22:09)
[2017-09-11] MEDS ORDERED: CHLORASEPTIC SPRAY 177 ML LIQUID MC PRN (11:15)
[2017-09-11] MEDS: meTOprolol TARTRATE 50 MG (LOPRESSOR) TAB PO SCH ×2 (11:56→22:08)
[2017-09-11] MEDS: CHLORASEPTIC LOZENGE MM PRN ×2 (12:00→23:39)
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
--- NOTE | 2017-09-11 16:07 | Cardiology Progress Note ---
Cardiology SOAP Progress Note Subjective: Improved symptoms. Objective: I&O/Vital Signs Vital Sign - Last 12Hours 09/11/17 09/11/17 09/11/17 09/11/17 05:00 06:00 06:56 07:00 Pulse 98 95 96 Resp 11 14 B/P (MAP) 132/55 (80) 120/65 (83) 129/60 (83) Pulse Ox 96 93 93 98 O2 Delivery Nasal Cannula Nasal Cannula Nasal Cannula Nasal Cannula O2 Flow Rate 2.00 2.00 2.00 2.00 09/11/17 09/11/17 09/11/17 09/11/17 07:00 08:00 08:50 09:00 Temp 98.2 Pulse 98 103 101 Resp 19 18 B/P (MAP) 128/71 (90) 132/71 (91) Pulse Ox 93 94 O2 Delivery Nasal Cannula Nasal Cannula Nasal Cannula O2 Flow Rate 2.00 2.00 2.00 09/11/17 09/11/17 09/11/17 09/11/17 09:46 10:00 11:00 11:05 Temp 98.3 Pulse 96 103 Resp 15 22 B/P (MAP) 141/65 (90) 152/71 (98) Pulse Ox 93 92 95 O2 Delivery Nasal Cannula Nasal Cannula Nasal Cannula Nasal Cannula O2 Flow Rate 2.00 2.00 2.00 2.00 09/11/17 09/11/17 09/11/17 09/11/17 12:00 12:00 13:00 13:00 Temp 98.3 Pulse 147 87 89 Resp 17 17 B/P (MAP) 155/94 (114) 129/75 (93) Pulse Ox 93 98 O2 Delivery Nasal Cannula Nasal Cannula O2 Flow Rate 2.00 2.00 09/11/17 09/11/17 09/11/17 14:00 14:29 15:00 Pulse 90 95 Resp 26 18 B/P (MAP) 123/72 (89) 117/62 (80) Pulse Ox 97 97 95 O2 Delivery Nasal Cannula Nasal Cannula Nasal Cannula O2 Flow Rate 2.00 2.00 2.00 Intake and Output 09/11/17 00:00 Intake Total 1550 ml Output Total 750 ml Balance 800 ml Weight (Pounds): 197 Weight (Ounces): 4.0 Weight (Calculated Kilograms): 89.551162 Constitutional: No appears stated age, No AAO x 3, No apparent distress, No PERRL, No well-developed, No well-nourished, No other Respiratory: crackles Cardiovascular: No regular rate-rhythm, No irregularly irregular, No extra beats, No parasternal heave is noted, No JVD, No edema, No bradycardia, No tachycardia, No point of maximal impulse, No cardiac thrills are palpable, No S1 and S2, No gallop/S3, No gallop/S4, No diastolic murmur, No systolic murmur, No friction rub, No click, No other Gastrointestional: No tender, No soft, No round, No distended, No pulsatile mass, No organomegaly, No guarding, No rebound, No tenderness, No hernia, No mass, No audible bowel sounds, No abnormal bowel sounds, No abdominal bruits, No spleenomegaly, No other Extremities: No normal range of motion, No non-tender, No normal inspection, pedal edema, No calf tenderness, No normal capillary refill, No pelvis stable, No calf tenderness, No inflammation, No pedal edema, No slow capillary refill, No swelling, No other, No abrasion, No clubbing, No cyanosis, No ecchymosis, No laceration, No no lower extremity edema bilateral, No significant edema, No tenderness, No wound Neurologic/Psychiatric: No catalyst operator gasoline II-XII nml as tested, No no motor/sensory deficits, No alert, No normal mood/affect, No oriented x 3, No abnormal cerebellar tests, No abnormal catalyst operator gasoline II-XII, No abnormal gait, No aphasia, No EOM palsy, No facial droop, No motor weakness, No sensory deficit, No depressed affect, No disoriented x 3, No other, No grossly intact, No power is 5/5 both on sides Skin: No normal color, No warm/dry, No cyanosis, No cool, No diaphoresis, No damp, No ecchymosis, No jaundice, No mottled, No pallor, No rash, No tattoos/ piercings, No ulcerations, No rash on exposed areas, No ulcerations on exposed areas, No other Results/Procedures: Labs Laboratory Tests 09/10/17 20:48: Glucometer 292H 09/11/17 05:05: White Blood Count 13.1H, Red Blood Count 4.42, Hemoglobin 13.2L, Hematocrit 39L , Mean Corpuscular Volume 89, Mean Corpuscular Hemoglobin 30, Mean Corpuscular Hemoglobin Concent 34, Red Cell Distribution Width 14.4, Platelet Count 259, Mean Platelet Volume 10.2, Neutrophils (%) (Auto) 95H, Lymphocytes (%) (Auto) 4L , Monocytes (%) (Auto) 2, Eosinophils (%) (Auto) 0, Basophils (%) (Auto) 0, Neutrophils # (Auto) 12.4H, Lymphocytes # (Auto) 0.5L, Monocytes # (Auto) 0.2, Eosinophils # (Auto) 0.0, Basophils # (Auto) 0.0, Sodium Level 135, Potassium Level 3.9, Chloride Level 96L, Carbon Dioxide Level 21, Anion Gap 18H, Blood Urea Nitrogen 36H, Creatinine 1.65H, Estimat Glomerular Filtration Rate 42, BUN/ Creatinine Ratio 22, Glucose Level 556*H, Calcium Level 8.9, Phosphorus Level 5.9H, Magnesium Level 2.1 09/11/17 11:03: Glucometer 497*H Microbiology 09/09/17 Blood Culture - Preliminary, Resulted No growth 09/09/17 MRSA Screen - Final, Complete MRSA not isolated A/P: Assessment/Dx: Severe hypoxia with influenza, Acute diastolic congestive heart failure, Non-ST elevation [place], Diabetes, Acute kidney injury, Severe hypertension, Active smoking Plan: Severe hypoxia with influenza, treat with Tamiflu. Improved clinically. Defer to primary service. Acute diastolic congestive heart failure, treated overnight with IV Lasix however we will hold IV Lasix due to worsening creatinine. Elevated BNP. Echocardiogram. Non-ST elevation [place], no further chest pain on my interview. Coronary angiography was delayed initially due to acute influenza and MORRIS. Improved respiratory condition and stable kidney function now. We will plan on Thursday. Diabetes, insulin Acute kidney injury, chronic kidney disease likely secondary to diabetic nephropathy. Worsening due to acute systemic illness with flu and likely diuresis. Severe hypertension, initially given nitroglycerin infusion. We'll start JOSÉ LUIS inhibitor and discontinue nitroglycerin. Active smoking Thank you for your consultation. Please call me if you have any questions. Araceli Florentino MD, FACP, FACC, FSCAI, FHRS, CCDS Interventional Cardiology Cardiac Electrophysiology Vascular Medicine and Endovascular Interventions Ignacio FLORENTINO MD Sep 11, 2017 4:07 pm
[2017-09-12] VITALS (12 sets, daily range): BP systolic 94–130; BP diastolic 60–95
[2017-09-12 05:06] LABS: BASOPHILS % (AUTO) 0 % (0-10); EOSINOPHILS % (AUTO) 0 % (0-10); HEMATOCRIT 41 % (40-54); HEMOGLOBIN 13.9 G/DL (13.3-17.7); LYMPHOCYTES # (AUTO) 0.8 X 10^3 (1.0-4.0); LYMPHOCYTES % (AUTO) 4 % (12-44); MEAN CORPUSCULAR HEMOGLOBIN 30 PG (25-34); MEAN CORPUSCULAR HGB CONC 34 G/DL (32-36); MEAN CORPUSCULAR VOLUME 89 FL (80-99); MEAN PLATELET VOLUME 10.1 FL (7.4-10.4); MONOCYTES # (AUTO) 0.6 X 10^3 (0.0-1.0); MONOCYTES % (AUTO) 3 % (0-12); NEUTROPHILS % (AUTO) 93 % (42-75); PLATELET COUNT 276 10^3/uL (130-400); RED BLOOD COUNT 4.63 10^6/uL (4.35-5.85); RED CELL DISTRIBUTION WIDTH 14.5 % (10.0-14.5); WHITE BLOOD COUNT 18.4 10^3/uL (4.3-11.0)
[2017-09-12 05:31] LABS: BAND NEUTROPHILS 0 %; BASOPHILS % (MANUAL) 0 %; EOSINOPHILS % (MANUAL) 0 %; LYMPHOCYTES % (MANUAL) 4 %; MONOCYTES % (MANUAL) 1 %; NEUTROPHILS % (MANUAL) 95 %; RBC MORPH NORMAL
[2017-09-12 05:37] LABS: CALCIUM 8.5 MG/DL (8.5-10.1); CREATININE SERUM 1.44 MG/DL (0.60-1.30); MAGNESIUM 2.1 MG/DL (1.8-2.4)
[2017-09-12] MEDS: methylPREDNISolone 40 MG/ML (Solu-MEDROL) VIAL IV SCH ×3 (06:03→17:20)
--- NOTE | 2017-09-12 07:15 | Pulmonary Progress Note ---
Subjective Time Seen by Provider: 07:14 Subjective/Events-last exam pt is having a heart cath today. Exam Exam Vital Signs Date Time Temp Pulse Resp B/P (MAP) Pulse Ox O2 Delivery O2 Flow Rate FiO2 09/12/17 04:58 87 96 28 09/12/17 04:00 Nasal Cannula 2.00 09/12/17 04:00 97.9 100 16 102/72 (82) 95 Nasal Cannula 2.00 09/12/17 01:00 87 09/12/17 00:00 98.2 87 16 123/78 (93) 96 Nasal Cannula 2.00 09/12/17 00:00 Nasal Cannula 2.00 09/11/17 23:08 99 Nasal Cannula 2.00 09/11/17 20:00 Nasal Cannula 2.00 09/11/17 20:00 96 18 122/93 (103) 94 Nasal Cannula 2.00 09/11/17 20:00 98.0 09/11/17 19:00 101 20 140/76 (97) 96 Nasal Cannula 2.00 09/11/17 19:00 100 09/11/17 18:16 99 Nasal Cannula 2.00 09/11/17 18:00 88 14 142/81 (101) 96 Nasal Cannula 2.00 09/11/17 17:00 91 18 133/68 (89) 95 Nasal Cannula 2.00 09/11/17 16:20 98.2 Nasal Cannula 2.00 09/11/17 16:20 Nasal Cannula 2.00 09/11/17 16:00 92 19 131/83 (99) 96 Nasal Cannula 2.00 09/11/17 15:00 95 18 117/62 (80) 95 Nasal Cannula 2.00 09/11/17 14:29 97 Nasal Cannula 2.00 09/11/17 14:00 90 26 123/72 (89) 97 Nasal Cannula 2.00 09/11/17 13:00 89 09/11/17 13:00 87 17 129/75 (93) 98 Nasal Cannula 2.00 09/11/17 12:00 147 17 155/94 (114) 93 Nasal Cannula 2.00 09/11/17 12:00 98.3 09/11/17 11:05 Nasal Cannula 2.00 09/11/17 11:05 98.3 Nasal Cannula 2.00 09/11/17 11:00 103 22 152/71 (98) 95 Nasal Cannula 2.00 09/11/17 10:00 96 15 141/65 (90) 92 Nasal Cannula 2.00 09/11/17 09:46 93 Nasal Cannula 2.00 09/11/17 09:00 101 18 132/71 (91) 94 Nasal Cannula 2.00 09/11/17 08:55 Nasal Cannula 2.00 09/11/17 08:50 98.2 Nasal Cannula 2.00 09/11/17 08:00 103 19 128/71 (90) 93 Nasal Cannula 2.00 I & O 09/12/17 07:00 Intake Total 2190 ml Output Total 850 ml Balance 1340 ml General Appearance: No Apparent Distress, WD/WN, Chronically ill, Obese HEENT: PERRL/EOMI, Normal ENT Inspection, Pharynx Normal Neck: Full Range of Motion, Normal Inspection, Non Tender, Supple, Carotid Bruit Respiratory: Chest Non Tender, No Accessory Muscle Use, No Respiratory Distress , Crackles, Decreased Breath Sounds Cardiovascular: No Edema, No Gallop, No JVD, No Murmur, Normal Peripheral Pulses, Tachycardia Capillary Refill: Less Than 3 Seconds Extremity: Normal Capillary Refill, Normal Inspection, Normal Range of Motion, Non Tender, No Calf Tenderness, No Pedal Edema Neurologic/Psychiatric: Alert, Oriented x3, No Motor/Sensory Deficits, Normal Mood/Affect Skin: Normal Color, Warm/Dry Lymphatic: No Adenopathy Results Lab Laboratory Tests 09/11/17 05:05 09/12/17 04:51 Assessment/Plan Assessment/Plan Acute respiratory failure with hypoxia -BIPAP PRN -OXygen Atelectasis -IS -increase activity NSTEMI Tobacco dependance -education COPD AE -SOlumedrol -SVNs CHF - diastolic DM Levemir -give premeal insulin now 233 Clinical Quality Measures DVT/VTE Risk/Contraindication: Risk Factor Score Per Nursin RFS Level Per Nursing on Admit: 4+=Very High MARTHA HERNANDES DO Sep 12, 2017 07:15
[2017-09-12] MEDS: inSUlin ASPART (NovoLOG) 1 UNIT/0.01 ML (CHARGE PER UNIT) SC SCH ×3 (07:41→16:08)
[2017-09-12] MEDS: RT-ALBUTEROL/IPRATROPIUM 3 ML (DUONEB) VIAL IH SCH ×2 (08:42→20:50)
[2017-09-12] MEDS ORDERED: fentaNYL INJECTION 100 MCG/2 ML AMP ONE (09:16)
[2017-09-12] MEDS ORDERED: MIDAZOLAM 5 MG/5 ML (VERSED) VIAL ONE (09:16)
[2017-09-12] MEDS ORDERED: LIDOCAINE 1% INJ 50 ML (XYLOCAINE) VIAL ONE (09:16)
[2017-09-12] MEDS ORDERED: NS IV 1000 ML 1,000 ML ONE (09:17)
[2017-09-12] MEDS ORDERED: HEParin 1000 UNIT/ML (10ML VIAL) FOR BOLUS ONE (09:17)
[2017-09-12] MEDS ORDERED: VERAPAMIL 5 MG/2 ML (CALAN) VIAL IV ONE (09:17)
[2017-09-12] MEDS ORDERED: HEParin (CATH LAB) 2,000 ML IV ONE (09:17)
[2017-09-12] MEDS ORDERED: NITROGLYCERIN DRIP 25 MG/D5W 0 ML IV ONE (09:17)
[2017-09-12] MEDS: GABAPENTIN 300 MG (NEURONTIN) CAP PO SCH ×3 (10:41→20:26)
[2017-09-12] MEDS: ENOXAPARIN 100 MG/1 ML (LOVENOX) SYR SC SCH (10:42)
[2017-09-12] MEDS: OSELTAMIVIR 30 MG (TAMIFLU) BOX OF 10 PO SCH ×2 (10:42→20:25)
[2017-09-12] MEDS ORDERED: ADENOSINE 3 MG/1 ML (ADENOSCAN) 30ML VIAL IV ONE (11:30)
[2017-09-12] MEDS ORDERED: TICAGRELOR 90 MG TABLET (BRILINTA) PO ONE (11:53)
--- NOTE | 2017-09-12 12:26 | Cardiac Procedure Note-CS/ASA ---
Pre-Procedure Note Pre-Op Procedure Note H&P Reviewed The H&P was reviewed, patient examined and no changes noted. Date H&P Reviewed: Sep 12, 2017 Time H&P Reviewed: 11:00 Conscious Sedation Pre-Proced Time Reviewed: 11:00 ASA Class: 3 Airway Mallampati Classification: (morongo appropriate class) I. II. III, IV Lungs Heart ASA score ASA 1: a normal healthy patient ASA 2: a patient with a mild systemic disease (mid diabetes, controlled hypertension, obesity ASA 3: a patient with a severe systemic disease that limits activity (angina , COPD, prior Myocardial infarction) ASA 4: a patient with an incapacitating disease that is a constant threat to life (CHF, renal failure) ASA 5: a moribund patient not expected to survive 24 hrs. (ruptured aneurysm) ASA 6: a declared brain patient whose organs are being harvested. For emergent operations, add the letter E after the classification Grade 1 Sedation Plan: Analgesia, Amnesia, Plan communicated to team members, Discussed options with patient/fam, Discussed risks with patient/fam Note The patient is an appropriate candidate to undergo the planned procedure, sedation, and anesthesia. The patient immediately re-assessed prior to indication. Ignacio CID MD Sep 12, 2017 12:26 pm
--- NOTE | 2017-09-12 12:26 | Cardiology Progress Note ---
Cardiology SOAP Progress Note Subjective: improved cardiac symptoms. Objective: I&O/Vital Signs Vital Sign - Last 12Hours 09/12/17 09/12/17 09/12/17 09/12/17 01:00 04:00 04:00 04:58 Temp 97.9 Pulse 87 100 87 Resp 16 B/P (MAP) 102/72 (82) Pulse Ox 95 96 O2 Delivery Nasal Cannula Nasal Cannula O2 Flow Rate 2.00 2.00 FiO2 28 09/12/17 09/12/17 09/12/17 09/12/17 07:39 08:00 08:42 09:00 Temp 97.8 Pulse 117 115 Resp 16 B/P (MAP) 110/87 (95) Pulse Ox 95 92 92 O2 Delivery Nasal Cannula Nasal Cannula Nasal Cannula O2 Flow Rate 2.00 2.00 2.00 2.00 Intake and Output 09/12/17 00:00 Intake Total 1150 ml Output Total 850 ml Balance 300 ml Weight (Pounds): 196 Weight (Ounces): 9.0 Weight (Calculated Kilograms): 89.581632 Constitutional: No appears stated age, No AAO x 3, No apparent distress, No PERRL, No well-developed, No well-nourished, No other Respiratory: crackles Cardiovascular: No regular rate-rhythm, No irregularly irregular, No extra beats, No parasternal heave is noted, No JVD, No edema, No bradycardia, No tachycardia, No point of maximal impulse, No cardiac thrills are palpable, No S1 and S2, No gallop/S3, No gallop/S4, No diastolic murmur, No systolic murmur, No friction rub, No click, No other Gastrointestional: No tender, No soft, No round, No distended, No pulsatile mass, No organomegaly, No guarding, No rebound, No tenderness, No hernia, No mass, No audible bowel sounds, No abnormal bowel sounds, No abdominal bruits, No spleenomegaly, No other Extremities: No normal range of motion, No non-tender, No normal inspection, pedal edema, No calf tenderness, No normal capillary refill, No pelvis stable, No calf tenderness, No inflammation, No pedal edema, No slow capillary refill, No swelling, No other, No abrasion, No clubbing, No cyanosis, No ecchymosis, No laceration, No no lower extremity edema bilateral, No significant edema, No tenderness, No wound Neurologic/Psychiatric: No steward/stewardess banquet II-XII nml as tested, No no motor/sensory deficits, No alert, No normal mood/affect, No oriented x 3, No abnormal cerebellar tests, No abnormal steward/stewardess banquet II-XII, No abnormal gait, No aphasia, No EOM palsy, No facial droop, No motor weakness, No sensory deficit, No depressed affect, No disoriented x 3, No other, No grossly intact, No power is 5/5 both on sides Skin: No normal color, No warm/dry, No cyanosis, No cool, No diaphoresis, No damp, No ecchymosis, No jaundice, No mottled, No pallor, No rash, No tattoos/ piercings, No ulcerations, No rash on exposed areas, No ulcerations on exposed areas, No other Results/Procedures: Labs Laboratory Tests 09/11/17 16:20: Glucometer 387H 09/11/17 22:04: Glucometer 254H 09/12/17 04:51: White Blood Count 18.4H, Red Blood Count 4.63, Hemoglobin 13.9, Hematocrit 41, Mean Corpuscular Volume 89, Mean Corpuscular Hemoglobin 30, Mean Corpuscular Hemoglobin Concent 34, Red Cell Distribution Width 14.5, Platelet Count 276, Mean Platelet Volume 10.1, Neutrophils (%) (Auto) 93H, Lymphocytes (%) (Auto) 4L , Monocytes (%) (Auto) 3, Eosinophils (%) (Auto) 0, Basophils (%) (Auto) 0, Neutrophils # (Auto) 17.0H, Lymphocytes # (Auto) 0.8L, Monocytes # (Auto) 0.6, Eosinophils # (Auto) 0.0, Basophils # (Auto) 0.0, Neutrophils % (Manual) 95, Lymphocytes % (Manual) 4, Monocytes % (Manual) 1, Eosinophils % (Manual) 0, Basophils % (Manual) 0, Band Neutrophils 0, Blood Morphology Comment NORMAL, Sodium Level 133L, Potassium Level 4.0, Chloride Level 96L, Carbon Dioxide Level 24, Anion Gap 13, Blood Urea Nitrogen 51H, Creatinine 1.44H, Estimat Glomerular Filtration Rate 50, BUN/Creatinine Ratio 35, Glucose Level 244H, Calcium Level 8.5, Magnesium Level 2.1 Microbiology 09/09/17 Blood Culture - Preliminary, Resulted Staph, Coag Neg (DIRECTOR OF MEDICAL REVIEW) See Comments 09/09/17 MRSA Screen - Final, Complete MRSA not isolated A/P: Assessment/Dx: Severe hypoxia with influenza, Acute diastolic congestive heart failure, Non-ST elevation [place], Diabetes, Acute kidney injury, Severe hypertension, Active smoking Plan: Severe hypoxia with influenza, treat with Tamiflu. Improved clinically. Defer to primary service. Acute diastolic congestive heart failure, treated overnight with IV Lasix however we will hold IV Lasix due to worsening creatinine. Elevated BNP. Echocardiogram. Non-ST elevation [place], no further chest pain on my interview. Coronary angiography was delayed initially due to acute influenza and MORRIS. Improved respiratory condition and stable kidney function now. coronary angiography today. Diabetes, insulin Acute kidney injury, chronic kidney disease likely secondary to diabetic nephropathy. Worsening due to acute systemic illness with flu and likely diuresis. Severe hypertension, initially given nitroglycerin infusion. We'll start JOSÉ LUIS inhibitor and discontinue nitroglycerin. Active smoking Thank you for your consultation. Please call me if you have any questions. Araceli Florentino MD, FACP, FACC, FSCAI, FHRS, CCDS Interventional Cardiology Cardiac Electrophysiology Vascular Medicine and Endovascular Interventions Ignacio FLORENTINO MD Sep 12, 2017 12:26 pm
[2017-09-12] MEDS: meTOprolol TARTRATE 50 MG (LOPRESSOR) TAB PO SCH ×4 (12:43→20:26)
--- NOTE | 2017-09-12 12:43 | Coronary Angiography & PCI ---
Coronary Angiography & PCI DATE OF PROCEDURE: 09/12/17 INDICATION: non-ST elevation [place], acute diastolic congestive heart failure PREOPERATIVE DIAGNOSIS: 1. Non-ST elevation [place]. 2. Acute diastolic congestive heart failure. 3. Influenza. 4. Acute kidney injury. 5. Atrial fibrillation. POSTOPERATIVE DIAGNOSIS: 1. Severe ostial LAD stenosis treated with a drug-eluting stent. 2. CONSTRUCTION RIGGER RCA, moderate to severe LCx/OM 1 disease. HISTORY: this is a 61-year-old gentleman who has history of diabetes, active smoking, paroxysmal atrial fibrillation who presented with respiratory failure and was in acute diastolic congestive heart failure. He was also found to have influenza and received appropriate treatment. He has history of CK D and had acute on chronic kidney disease. He also has atrial fibrillation. Coronary angiography was initially delayed since the patient did not have any further acute chest pain, and required treatment for influenza and improvement in kidney function. The patient improved significantly as far as respiratory status is concerned, also his kidney function improved.Therefore, the patient was scheduled for coronary angiography today. PROCEDURES PERFORMED: 1.Coronary angiography. 2.Left heart catheterization. 3.PCI to the ostial LAD with drug-eluting stent. 4. FFR to LCx/OM 1. COMPLICATIONS: None. SPECIMENS: None. ESTIMATED BLOOD LOSS: 10 mL ANESTHESIA: Conscious sedation ANTICOAGULATION: IV heparin CONTRAST: 60cc FLUOROSCOPY: 9.5 minutes. FLOUROSCOPY DOSE: 1053 mgy. PROCEDURE DETAILS: The patient is a 61 male with non-STEMI and was brought to the aquatic laborer after informed consent was taken. All the risks and complications were explained in detail; this included the risk of bleeding, vascular damage, stroke, AR and even . The patient was draped and prepped in the usual sterile fashion. access was gained in the right femoral artery with a 6 Bulgarian sheath. Coronary angiography was performed with a JR4 and a JL4 catheter. Left heart catheterization was performed with a JR4 catheter. FINDINGS: 1.Left main: patent. 2.LAD: severe ostial LAD stenosis. Stenosis severity 95 percent. LAD is a transapical vessel which supplies collateral to the RCA. A first diagonal artery has moderate ostial disease. 3.Left circumflex artery: mid left circumflex artery has a diseased segment which involves the ostium of OM1 artery. Moderate to severe stenosis. Stenosis severity is 70 percent. The left circumflex artery supplies collaterals to the right PLV. 4.RCA: CONSTRUCTION RIGGER in the proximal segment with left to right collaterals. 5.Left heart catheterization: aortic pressure 101/54 mmHg. LV pressure 90/10 mmHg. LVEDP 22 mmHg. No gradient across the aortic valve. Left ventriculogram not performed due to renal insufficiency. RECOMMENDATIONS: 1. FFR to the LCx/OM 1 artery is recommended. 2. PCI to ostial LAD is recommended. INTERVENTION DETAILS: JL4 guide catheter, pressure wire as guidewire and IV heparin as IV anticoagulation. ACT was 220 seconds. The lesion in the mid LCx/OM 1 was crossed with a pressure wire and the tip of the pressure wire was placed in the midsegment of the use marginal artery. Baseline FFR was 0.99. IV adenosine was started at 140 g per KG per minute for 3 minutes. Lowest FFR was 0.96. This is in the normal range. We then took the pressure wire and pulled it back into the guide catheter. Post angiography did not reveal any vascular complication. The lesion in the ostium of the LAD was crossed with a pressure wire. The tip of the pressure wire was placed in the distal segment. The pressure wire was used as a guidewire for PCI to the ostium of the LAD. The lesion was treated with direct stenting with 3.5X 15 mm Xience Alpine drug-eluting stent. stent was deployed at 14 marjan for 1 minute. We noted mild waist therefore postdilatation was performed with the NC Quantum 3.5X 12 mm [employer] balloon at 18 marjan for 60 seconds. Post angiographic results were excellent. No residue stenosis. Initial YA flow was 2/3 and final YA flow was 3. patient tolerated the procedure well and did not have any complications. Patient was given Brilinta 180 mg by mouth bolus before PCI. CONCLUSIONS: 1. severe ostial LAD stenosis treated successfully with drug-eluting stent. 2. Moderate to severe LCx/OM 1 stenosis, normal with a FFR. Chronic total occlusion of the ostial RCA with [id number] collaterals. 3. Atrial fibrillation. 4. Diastolic heart failure with LVEDP of 22 mmHg. Araceli Florentino MD, FACP, FACC, [facility] Interventional Cardiology Ignacio FLORENTINO MD Sep 12, 2017 12:43 pm
[2017-09-12] MEDS: ASPIRIN E.C. 325 MG (ECOTRIN) TABLET PO SCH (12:53)
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
[2017-09-12] MEDS: lisINopril 20 MG (ZESTRIL) TAB PO SCH (13:08)
[2017-09-12] MEDS: inSUlin DETERMIR 1 UNIT/0.01 ML (LEVEMIR) CHARGE PER UNIT SQ SCH ×2 (13:22→20:26)
[2017-09-12] MEDS ORDERED: PATIENT MAY USE OWN MEDS, ALL PO SCH (14:15)
[2017-09-12] MEDS: NS IV 1000 ML 1,000 ML IV SCH (14:20)
[2017-09-12] MEDS: APIXABAN 5 MG (ELIQUIS) TABLET PO SCH (20:26)
[2017-09-12] MEDS ORDERED: ATORVASTATIN 40 MG (LIPITOR) TABLET PO SCH (21:00)
[2017-09-13 00:25] VITALS: BP 99/71
[2017-09-13] MEDS: NS IV 1000 ML 1,000 ML IV SCH ×2 (00:29→08:27)
[2017-09-13] MEDS: methylPREDNISolone 40 MG/ML (Solu-MEDROL) VIAL IV SCH ×3 (00:33→12:18)
[2017-09-13] MEDS: RT-ALBUTEROL/IPRATROPIUM 3 ML (DUONEB) VIAL IH SCH ×2 (03:53→10:44)
[2017-09-13 04:00] VITALS: BP 115/90
[2017-09-13 04:50] LABS: BASOPHILS % (AUTO) 0 % (0-10); EOSINOPHILS % (AUTO) 0 % (0-10); HEMATOCRIT 40 % (40-54); HEMOGLOBIN 13.4 G/DL (13.3-17.7); LYMPHOCYTES # (AUTO) 0.5 X 10^3 (1.0-4.0); LYMPHOCYTES % (AUTO) 3 % (12-44); MEAN CORPUSCULAR HEMOGLOBIN 30 PG (25-34); MEAN CORPUSCULAR HGB CONC 33 G/DL (32-36); MEAN CORPUSCULAR VOLUME 90 FL (80-99); MEAN PLATELET VOLUME 10.3 FL (7.4-10.4); MONOCYTES # (AUTO) 0.7 X 10^3 (0.0-1.0); MONOCYTES % (AUTO) 5 % (0-12); NEUTROPHILS # (AUTO) 14.2 X 10^3 (1.8-7.8); NEUTROPHILS % (AUTO) 92 % (42-75); PLATELET COUNT 270 10^3/uL (130-400); RED BLOOD COUNT 4.48 10^6/uL (4.35-5.85); RED CELL DISTRIBUTION WIDTH 14.5 % (10.0-14.5); WHITE BLOOD COUNT 15.5 10^3/uL (4.3-11.0)
[2017-09-13 05:11] LABS: BUN/CREATININE RATIO 36; CALCIUM 8.2 MG/DL (8.5-10.1); CARBON DIOXIDE 22 MMOL/L (21-32); CHLORIDE 104 MMOL/L (98-107); CREATININE SERUM 1.18 MG/DL (0.60-1.30); GFR ESTIMATED > 60; GLUCOSE 186 MG/DL (70-105); MAGNESIUM 2.3 MG/DL (1.8-2.4); POTASSIUM 4.2 MMOL/L (3.6-5.0); SODIUM 135 MMOL/L (135-145)
[2017-09-13] MEDS: inSUlin ASPART (NovoLOG) 1 UNIT/0.01 ML (CHARGE PER UNIT) SC SCH ×2 (06:34→12:18)
[2017-09-13 08:13] VITALS: BP 109/98
[2017-09-13] MEDS: OSELTAMIVIR 30 MG (TAMIFLU) BOX OF 10 PO SCH (08:19)
[2017-09-13] MEDS: meTOprolol TARTRATE 50 MG (LOPRESSOR) TAB PO SCH (08:19)
[2017-09-13] MEDS: lisINopril 20 MG (ZESTRIL) TAB PO SCH (08:20)
[2017-09-13] MEDS: APIXABAN 5 MG (ELIQUIS) TABLET PO SCH (08:20)
[2017-09-13] MEDS: inSUlin DETERMIR 1 UNIT/0.01 ML (LEVEMIR) CHARGE PER UNIT SQ SCH (08:21)
[2017-09-13] MEDS: GABAPENTIN 300 MG (NEURONTIN) CAP PO SCH ×2 (08:24→12:20)
[2017-09-13] MEDS ORDERED: ASPIRIN 81 MG CHEW (CHILDREN'S ASA) PO SCH (09:00)
[2017-09-13] MEDS ORDERED: CLOPIDOGREL 75 MG (PLAVIX) TABLET PO SCH (09:00)
[2017-09-13 12:00] VITALS: BP 126/89
[2017-09-13] MEDS ORDERED: GLYB2.5T4 PO (12:32)
[2017-09-13] MEDS ORDERED: OSEL30CA PO (12:32)
[2017-09-13] MEDS ORDERED: GABA-488 PO (12:32)
[2017-09-13] MEDS ORDERED: METF500T4 PO (12:32)
[2017-09-13] MEDS ORDERED: PRED10TA22 PO (12:32)
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
[2017-09-13] MEDS ORDERED: CEFD300C3 PO (12:39)
[2017-09-13] MEDS ORDERED: RELABEL FOR HOME USE MC SCH (12:45)
--- NOTE | 2017-09-13 12:58 | Cardiology Progress Note ---
Cardiology SOAP Progress Note Subjective: No cardiac complaints. Objective: I&O/Vital Signs Vital Sign - Last 12Hours 09/13/17 09/13/17 09/13/17 09/13/17 01:00 03:54 04:00 07:00 Temp 97.7 Pulse 108 108 116 Resp 16 B/P (MAP) 115/90 (98) Pulse Ox 94 94 O2 Delivery Nasal Cannula Nasal Cannula O2 Flow Rate 2.00 2.00 09/13/17 09/13/17 09/13/17 09/13/17 08:13 09:00 09:22 12:00 Temp 98.8 98.3 Pulse 121 104 Resp 18 18 B/P (MAP) 109/98 (102) 126/89 (101) Pulse Ox 95 95 95 96 O2 Delivery Room Air Room Air Room Air Room Air O2 Flow Rate 2.00 2.00 0.00 0.00 Intake and Output 09/13/17 00:00 Intake Total 1060 ml Output Total 450 ml Balance 610 ml Weight (Pounds): 196 Weight (Ounces): 3.0 Weight (Calculated Kilograms): 88.253840 Constitutional: No appears stated age, No AAO x 3, No apparent distress, No PERRL, No well-developed, No well-nourished, No other Respiratory: crackles Cardiovascular: No regular rate-rhythm, No irregularly irregular, No extra beats, No parasternal heave is noted, No JVD, No edema, No bradycardia, No tachycardia, No point of maximal impulse, No cardiac thrills are palpable, No S1 and S2, No gallop/S3, No gallop/S4, No diastolic murmur, No systolic murmur, No friction rub, No click, No other Gastrointestional: No tender, No soft, No round, No distended, No pulsatile mass, No organomegaly, No guarding, No rebound, No tenderness, No hernia, No mass, No audible bowel sounds, No abnormal bowel sounds, No abdominal bruits, No spleenomegaly, No other Extremities: No normal range of motion, No non-tender, No normal inspection, pedal edema, No calf tenderness, No normal capillary refill, No pelvis stable, No calf tenderness, No inflammation, No pedal edema, No slow capillary refill, No swelling, No other, No abrasion, No clubbing, No cyanosis, No ecchymosis, No laceration, No no lower extremity edema bilateral, No significant edema, No tenderness, No wound Neurologic/Psychiatric: No flush tester II-XII nml as tested, No no motor/sensory deficits, No alert, No normal mood/affect, No oriented x 3, No abnormal cerebellar tests, No abnormal flush tester II-XII, No abnormal gait, No aphasia, No EOM palsy, No facial droop, No motor weakness, No sensory deficit, No depressed affect, No disoriented x 3, No other, No grossly intact, No power is 5/5 both on sides Skin: No normal color, No warm/dry, No cyanosis, No cool, No diaphoresis, No damp, No ecchymosis, No jaundice, No mottled, No pallor, No rash, No tattoos/ piercings, No ulcerations, No rash on exposed areas, No ulcerations on exposed areas, No other Results/Procedures: Labs Laboratory Tests 09/12/17 16:01: Glucometer 376H 09/12/17 20:24: Glucometer 347H 09/13/17 04:16: White Blood Count 15.5H, Red Blood Count 4.48, Hemoglobin 13.4, Hematocrit 40, Mean Corpuscular Volume 90, Mean Corpuscular Hemoglobin 30, Mean Corpuscular Hemoglobin Concent 33, Red Cell Distribution Width 14.5, Platelet Count 270, Mean Platelet Volume 10.3, Neutrophils (%) (Auto) 92H, Lymphocytes (%) (Auto) 3L , Monocytes (%) (Auto) 5, Eosinophils (%) (Auto) 0, Basophils (%) (Auto) 0, Neutrophils # (Auto) 14.2H, Lymphocytes # (Auto) 0.5L, Monocytes # (Auto) 0.7, Eosinophils # (Auto) 0.0, Basophils # (Auto) 0.0, Sodium Level 135, Potassium Level 4.2, Chloride Level 104, Carbon Dioxide Level 22, Anion Gap 9, Blood Urea Nitrogen 42H, Creatinine 1.18, Estimat Glomerular Filtration Rate > 60, BUN/ Creatinine Ratio 36, Glucose Level 186H, Calcium Level 8.2L, Magnesium Level 2.3 09/13/17 11:06: Glucometer 195H Microbiology 09/09/17 Blood Culture - Preliminary, Resulted Staph, Coag Neg (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 Improved clinically. Defer to primary service. Acute diastolic congestive heart failure, resolved with IV Lasix. No further Lasix given due to worsening kidney function. Non-ST elevation [place], no further chest pain on my interview. Coronary angiography was delayed initially due to acute influenza and MORRIS. Improved respiratory condition and stable kidney function now. Coronary angiography showed severe ostial LAD stenosis treated with a drug-eluting stent. Moderate to severe mid left circumflex artery/OM 1 stenosis which was negative by FFR. Chronic total occlusion of the RCA supplied by [id number] collaterals. Atrial fibrillation: Switch to Xarelto. Rate control with beta claribel. Diabetes, insulin Acute kidney injury, chronic kidney disease likely secondary to diabetic nephropathy. Worsening due to acute systemic illness with flu and likely diuresis. Severe hypertension, on JOSÉ LUIS inhibitor. Well controlled Active smoking: Strongly recommended to quit. I will follow-up in one week after discharge. Thank you for your consultation. Please call me if you have any questions. Araceli Florentino MD, FACP, FACC, FSCAI, FHRS, CCDS Interventional Cardiology Cardiac Electrophysiology Vascular Medicine and Endovascular Interventions Ignacio FLORENTINO MD Sep 13, 2017 12:58 pm
[2017-09-13] MEDS ORDERED: ATOR40TA PO (13:02)
[2017-09-13] MEDS ORDERED: CLOP75TA28 PO (13:02)
[2017-09-13] MEDS ORDERED: LISI-552 PO (13:02)
[2017-09-13] MEDS ORDERED: METO50TA15 PO (13:02)
[2017-09-13] MEDS ORDERED: ASPI-999 PO (13:02)
[2017-09-13] MEDS ORDERED: RIVA15TA PO (13:02)
--- NOTE | 2017-09-13 13:02 | Discharge Inst-Post CATH ---
Discharge Inst-CATH Post Cardiac Cath D/C Inst Follow Up/Plan Dr. Florentino next week. CARDIAC CATH DISCHARGE INSTRUCTIONS *Hold Metformin for 48 hours post heart cath. ACTIVITY * Go Home directly and rest. * Limit activity of the leg (or wrist if it was used) for 7 days including aerobics, swimming, jogging, bicycling, etc. * Restrict stair-climbing for 7 days if possible, if not, climb up with your non -cath leg, then bring together on the same step. * Avoid lifting, pushing, pulling or excessive movement of the affected extremity for 7 days. * Customary sexual activity may be resumed after 2 days-use caution not to use a position that strains or causes pain to the affected extremity. * No driving for 24 hours. * NO SMOKING. * Avoid straining for bowel movements for 7 days. * Gentle walking on level ground is allowed. * Returning to work will depend on the type of procedure and the results. Your doctor will discuss this with you. CALL YOUR DOCTOR FOR ANY OF THE FOLLOWING: *If bleeding from the puncture site occurs- Apply gentle pressure to site with clean cloth and call your doctor or EMS. * If a knot or lump forms under the skin, increases in size, or causes pain. * If bruising appears to be worsening or moving further down your leg instead of disappearing. * Temperature above 101 F. CARE OF YOUR GROIN INCISION; * Bruising or purple discoloration of the skin near the puncture site is common. * You may shower only, no bathtub bathing for 5 days. Be careful to avoid slipping as your leg may feel stiff. * If a closure device was used on your femoral artery, please see the attached guide regarding care of the device and your leg. * REMOVE the dressing from your groin the next day after your procedure in the shower. CARE OF YOUR WRIST INCISION; * Bruising or purple discoloration of the skin near the puncture site is common. * You may shower. * DO NOT submerge wrist. * Remove dressing in 24 hours. Ignacio FLORENTINO MD Sep 13, 2017 1:02 pm
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
--- NOTE | 2017-09-13 14:08 | Discharge Summary-Hospitalist ---
Diagnosis/Chief Complaint Date of Admission Sep 09, 2017 at 20:12 Date of Discharge Discharge Date: Sep 13, 2017 Admission Diagnosis Assessment: Chest pain with elevated troponin consistent with non-ST elevation MD cardiology has been consulted for cardiac catheter has been delayed due to elevated creatinine from 1.3-1.6 Volume overloaded with elevated BNP requiring Lasix 80 MG IV 3 doses since ER Respiratory failure requiring BiPAP now on nasal cannula Chronic renal insufficiency likely diabetic nephropathy Malignant hypertension requiring nitroglycerin drip due to chest pain and elevated troponin Presumed COPD exacerbation status post 1 dose of steroids Current smoker Discharge Diagnosis Assessment: Chest pain with elevated troponin consistent with non-ST elevation MD s/p cath Thursday with stent placed in LAD drug-eluting Volume overloaded with elevated BNP requiring Lasix 80 MG IV 3 doses since ER AECOPD requiring IV steroids and Nebs Respiratory failure requiring BiPAP now on nasal cannula and then DC O2 altogether so no home O2 will be needed Chronic renal insufficiency likely diabetic nephropathy improved today at 1.1 Malignant hypertension requiring nitroglycerin drip due to chest pain and elevated troponin now improved Presumed COPD exacerbation requiring IV steroids Current smoker Severe hyperglycemia due to steroids and hga1c 11.8 requiring high doses of insulin currently Sore throat ordered Chloraseptic Near violent behavior towards this examiner when seen due to possible delay of DC home due to medication access Plan: Keep another day for social work to help him get his medications prior to going to [facility] on 09/22/17. Propensity for violent behavior towards nursing staff and physicians noted Discharge Summary Discharge Physical Examination Allergies: Coded Allergies: No Known Drug Allergies (Unverified , 02/07/13) Vitals & I&Os Vital Signs Date Time Temp Pulse Resp B/P (MAP) Pulse Ox O2 Delivery O2 Flow Rate FiO2 09/13/17 12:00 98.3 104 18 126/89 (101) 96 Room Air 0.00 0.00 09/12/17 04:58 28 Hospital Course Very upset about not being able to go home and I stated that social work would be able to help him with his medication until he establishes [facility] as scheduled on September 22 but patient began early violent behavior towards this examiner so I walked out of the room. Cardiology evaluated patient and felt he was able to go home and arrange for medications but upon further assessment he was unable to afford the rest of this cardiac meds so he will stay another day. nurses are aware of his tendency for violent behavior so they were notified along with nursing stevedoring supervisor. No fever, vital signs stable, angry unable to examine Laboratory Tests 09/13/17 04:16 Assessment: Chest pain with elevated troponin consistent with non-ST elevation MD s/p cath Thursday with stent placed in LAD drug-eluting Volume overloaded with elevated BNP requiring Lasix 80 MG IV 3 doses since ER AECOPD requiring IV steroids and Nebs Respiratory failure requiring BiPAP now on nasal cannula and then DC O2 altogether so no home O2 will be needed Chronic renal insufficiency likely diabetic nephropathy improved today at 1.1 Malignant hypertension requiring nitroglycerin drip due to chest pain and elevated troponin now improved Presumed COPD exacerbation requiring IV steroids Current smoker Severe hyperglycemia due to steroids and hga1c 11.8 requiring high doses of insulin currently Sore throat ordered Chloraseptic Near violent behavior towards this examiner when seen due to possible delay of DC home due to medication access Plan: Keep another day for social work to help him get his medications prior to going to [facility] on 09/22/17. Propensity for violent behavior towards nursing staff and physicians noted Hospital course: Patient was placed in ICU for respiratory failure due to volume overload and elevated troponin with exacerbation of COPD and strep pneumo in sputum. Acute renal failure eventually resolved enough to undergo cardiac catheterization which revealed stenosis of LAD with stent placement in an uncomplicated manner by cardiology. Smoking cessation was counseled. Patient was very prone to violent behavior towards this examiner and he was very upset about not being able to go home due to the cost of this medication and he could not afford to buy any of them so then the decision was made to keep him another day but then became very disruptive in front of nursing staff and nursing stevedoring supervisor so patient was given a voucher to cover for 2 days of medications because he was so prone to violent behavior. He was discharged in improved condition but poor prognosis long-term considering compliance issues and tendency for violent behavior towards health care providers. Labs (last 24 hrs) Laboratory Tests 09/12/17 16:01: Glucometer 376H 09/12/17 20:24: Glucometer 347H 09/13/17 04:16: White Blood Count 15.5H, Red Blood Count 4.48, Hemoglobin 13.4, Hematocrit 40, Mean Corpuscular Volume 90, Mean Corpuscular Hemoglobin 30, Mean Corpuscular Hemoglobin Concent 33, Red Cell Distribution Width 14.5, Platelet Count 270, Mean Platelet Volume 10.3, Neutrophils (%) (Auto) 92H, Lymphocytes (%) (Auto) 3L , Monocytes (%) (Auto) 5, Eosinophils (%) (Auto) 0, Basophils (%) (Auto) 0, Neutrophils # (Auto) 14.2H, Lymphocytes # (Auto) 0.5L, Monocytes # (Auto) 0.7, Eosinophils # (Auto) 0.0, Basophils # (Auto) 0.0, Sodium Level 135, Potassium Level 4.2, Chloride Level 104, Carbon Dioxide Level 22, Anion Gap 9, Blood Urea Nitrogen 42H, Creatinine 1.18, Estimat Glomerular Filtration Rate > 60, BUN/ Creatinine Ratio 36, Glucose Level 186H, Calcium Level 8.2L, Magnesium Level 2.3 09/13/17 11:06: Glucometer 195H Microbiology 09/09/17 Blood Culture - Preliminary, Resulted Staph, Coag Neg ([employer]CTION [employer]GER) See Comments 09/09/17 MRSA Screen - Final, Complete MRSA not isolated Pending Labs Laboratory Tests 09/13/17 11:06: Glucometer 195 Discharge Home Medications: Active Scripts Active Aspirin 81 Mg Tab.chew 81 Mg PO DAILY 30 Days Lisinopril 20 Mg Tablet 20 Mg PO DAILY 90 Days Metoprolol Tartrate 50 Mg Tablet 50 Mg PO BID 90 Days Lipitor (Atorvastatin Calcium) 40 Mg Tablet 40 Mg PO HS 90 Days Clopidogrel (Clopidogrel Bisulfate) 75 Mg Tablet 75 Mg PO DAILY 90 Days Xarelto (Rivaroxaban) 15 Mg Tablet 15 Mg PO DAILY 30 Days Cefdinir 300 Mg Capsule 300 Mg PO BID Prednisone 10 Mg Tab.ds.pk 10 Mg PO DAILY Glyburide 2.5 Mg Tablet 2.5 Mg PO DAILY Metformin HCl 500 Mg Tablet 500 Mg PO BID Tamiflu (Oseltamivir Phosphate) 30 Mg Capsule 0 Each PO BID 2 Days Gabapentin 300 Mg Capsule 600 Mg PO TID Reported Carvedilol 25 Mg Tablet 25 Mg PO BID LAST FILLED #60 03-30-17 Metformin HCl 1,000 Mg Tablet 1,000 Mg PO BID LAST FILLED #60 04-02-17 Montelukast Sodium 10 Mg Tablet 10 Mg PO DAILY LAST FILLED #30 04-02-17 Amlodipine Besylate 5 Mg Tablet 5 Mg PO DAILY LAST FILLED #30 04-02-17 Januvia (Sitagliptin Phosphate) 100 Mg Tablet 100 Mg PO DAILY LAST FILLED #30 04-02-17 Instructions to patient/family Please see electronic discharge instructions given to patient. Clinical Quality Measures DVT/VTE Risk/Contraindication: Risk Factor Score Per Nursin RFS Level Per Nursing on Admit: 4+=Very High MAURICIO OSEGUERA DO Sep 13, 2017 14:08
[2017-09-13 14:40] VITALS: BP 126/89
[2017-09-13] MEDS ORDERED: RIVAROXABAN 15 MG TABLET (XARELTO) PO SCH ×2 (17:00)
[2017-09-13] MEDS ORDERED: RIVAROXABAN 20 MG TABLET (XARELTO) PO NR (20:00)
[2017-09-14] MEDS ORDERED: predniSONE 20 MG TAB PO SCH (15:00)
[2017-09-14] MEDS ORDERED: RIVAROXABAN 20 MG TABLET (XARELTO) PO SCH (17:00)
== END 2017-09-13 14:40 | disposition home or self-care (01) | DRG 246 ==
LOC: EDUNIT# 18:34 → ER 18:35 → ICU 20:12
PROVIDERS: ADMIT Internal Medicine; ATTEND Internal Medicine
PROC: 027034Z Dilation of Coronary Artery, One Artery with Drug-eluting Intraluminal Device, Percutaneous Approach (ICD-10-PCS; principal; 2017-09-12)
PROC: 4A023N7 Measurement of Cardiac Sampling and Pressure, Left Heart, Percutaneous Approach (ICD-10-PCS; 2017-09-12)
PROC: B2111ZZ Fluoroscopy of Multiple Coronary Arteries using Low Osmolar Contrast (ICD-10-PCS; 2017-09-12)
DX: I21.4 Non-ST elevation (NSTEMI) myocardial infarction (principal); J96.90 Respiratory failure, unspecified, unspecified whether with hypoxia or hypercapnia; J44.1 Chronic obstructive pulmonary disease with (acute) exacerbation; I13.0 Hypertensive heart and chronic kidney disease with heart failure and stage 1 through stage 4 chronic kidney disease, or unspecified chronic kidney disease; I50.31 Acute diastolic (congestive) heart failure; N17.9 Acute kidney failure, unspecified; N18.9 Chronic kidney disease, unspecified; E11.22 Type 2 diabetes mellitus with diabetic chronic kidney disease; E11.40 Type 2 diabetes mellitus with diabetic neuropathy, unspecified; J98.11 Atelectasis; E78.5 Hyperlipidemia, unspecified; F17.210 Nicotine dependence, cigarettes, uncomplicated; Z79.84 Long term (current) use of oral hypoglycemic drugs; I25.10 Atherosclerotic heart disease of native coronary artery without angina pectoris; I25.82 Chronic total occlusion of coronary artery; I48.0 Paroxysmal atrial fibrillation; J11.1 Influenza due to unidentified influenza virus with other respiratory manifestations; E11.65 Type 2 diabetes mellitus with hyperglycemia; J02.9 Acute pharyngitis, unspecified; T38.0X5A Adverse effect of glucocorticoids and synthetic analogues, initial encounter
CPT/HCPCS: 36415; 71045; 80048; 80053; 80061; 80306; 80320; 81000; 82150; 82550; 82553; 82962; 83036; 83690; 83735; 83880; 84100; 84484; 85007; 85025; 85027; 85347; 85379; 85610; 85730; 87040; 87070; 87077; 87081; 87205; 87804; 93005; 93041; 93306; 93458; 93571; 94640; 94660; 94664; 96365; 96367; 96372; 96375

== ENCOUNTER 2017-09-15 01:25 | Inpatient (IN) | payer SELFPAY ==
[2017-09-15] VITALS (37 sets, daily range): BP systolic 104–195; BP diastolic 50–103
[~2017-09-15] VITALS: Ht 180.3 cm; Wt 84.9 kg
[~2017-09-15 01:25] MED LIST changes: +AMLO5TAB2 PO; +ASPI-999 PO; +ATOR40TA PO; +CARV25TA PO; +CEFD300C3 PO; +CLOP75TA28 PO; +GABA-488 PO; +GLYB2.5T4 PO; +LISI-552 PO; +METF1000 PO; +METF500T4 PO; +METO50TA15 PO; +MONT10TA24 PO; +OSEL30CA PO; +PRED10TA22 PO; +RIVA15TA PO; +SITA100T12 PO
--- OUTSIDE RECORDS SUMMARY | 2017-09-15 01:32 | XMS REPORT | Continuity of Care Document ---
Author Author [facility] Organization [facility] Address Unknown Phone Unavailable Allergies Active Description Code Type Severity Reaction Onset Reported/Identified Relationship to Patient Clinical Status Yes No Known Drug Allergies [id number] Drug Allergy Unknown N/A 02/07/2013 Medications There is no data. Problems Date [...] EXAMINATION AT A HEALTH CARE FACILITY 03/21/2013 DOE DO BRYANT K 250.60 DIABETES WITH NEUROLOGICAL MANIFESTATIONS TYPE II OR UNSPECIFIED TYPE NOT STATED UNCONTROLLED 03/21/2013 DOE DO BRYANT K 401.1 HYPERTENSION, BENIGN ESSENTIAL 03/21/2013 DOE DO, BRYANT K 553.1 UMBILICAL HERNIA WITHOUT OBSTRUCTION OR GANGRENE 03/21/2013 DOE DO BRYANT K V11.3 PERSONAL HISTORY OF ALCOHOLISM 03/21/2013 DOE DO BRYANT K V65.42 COUNSELING - SMOKING CESSATION 03/21/2013 DOE DO BRYANT K V70.0 ROUTINE GENERAL MEDICAL EXAMINATION AT A HEALTH CARE FACILITY 03/21/2013 DOE DO BRYANT K 250.60 DIABETES WITH NEUROLOGICAL MANIFESTATIONS TYPE II OR UNSPECIFIED TYPE NOT STATED UNCONTROLLED 03/21/2013 DOE DO BRYANT K 401.1 HYPERTENSION, BENIGN ESSENTIAL 03/21/2013 DOE DO BRYANT K 553.1 UMBILICAL HERNIA WITHOUT OBSTRUCTION OR GANGRENE 03/21/2013 BROOK LOWE BRYANT K V11.3 PERSONAL HISTORY OF ALCOHOLISM 03/21/2013 BROOK LOWE BRYANT K V65.42 COUNSELING - SMOKING CESSATION 03/21/2013 BROOK LOWE BRYANT K V70.0 ROUTINE GENERAL MEDICAL EXAMINATION AT A HEALTH CARE FACILITY 03/21/2013 DOE DO BRYANT K 250.60 DIABETES WITH NEUROLOGICAL MANIFESTATIONS TYPE II OR UNSPECIFIED TYPE NOT STATED UNCONTROLLED 03/21/2013 BROOK DO BRYANT K 401.1 HYPERTENSION, BENIGN ESSENTIAL 03/21/2013 DOE DO BRYANT K 553.1 UMBILICAL HERNIA WITHOUT OBSTRUCTION OR GANGRENE 03/21/2013 BROOK LOWE BRYANT K V11.3 PERSONAL HISTORY OF ALCOHOLISM 03/21/2013 BROOK LOEW BRYANT K V65.42 COUNSELING - SMOKING CESSATION 03/21/2013 DOE DO BRYANT K V70.0 ROUTINE GENERAL MEDICAL EXAMINATION AT A HEALTH CARE FACILITY 03/21/2013 BROOK LOWE BRYANT K 250.60 DIABETES WITH NEUROLOGICAL MANIFESTATIONS TYPE II OR UNSPECIFIED TYPE NOT STATED UNCONTROLLED 03/21/2013 DOE DO BRYANT K 401.1 HYPERTENSION, BENIGN ESSENTIAL 03/21/2013 DOE DO BRYANT K 553.1 UMBILICAL HERNIA WITHOUT OBSTRUCTION OR GANGRENE 03/21/2013 DOE DO BRYANT K V11.3 PERSONAL HISTORY OF ALCOHOLISM 03/21/2013 BROOK LOWE BRYANT K V65.42 COUNSELING - SMOKING CESSATION 03/21/2013 BRYANT DOE DO V70.0 ROUTINE GENERAL MEDICAL EXAMINATION AT A HEALTH CARE FACILITY 04/25/2013 BRYANT DOE DO 553.21 HERNIA- VENTRAL/INCISION 04/25/2013 BRYANT DOE DO K 553.21 HERNIA- VENTRAL/INCISION 04/25/2013 BRYANT DOE DO K 553.21 HERNIA- VENTRAL/INCISION 04/25/2013 BRYANT DOE DO K 553.21 HERNIA- VENTRAL/INCISION 04/25/2013 BRYANT DOE DO K 553.21 HERNIA- VENTRAL/INCISION 04/25/2013 BRYANT DOE DO K 553.21 HERNIA- VENTRAL/INCISION 05/13/2013 BRYANT DOE DO K 789.00 ABDOMINAL PAIN UNSPECIFIED SITE 05/13/2013 BRYANT DOE DO K 789.00 ABDOMINAL PAIN UNSPECIFIED SITE 05/13/2013 BRYANT DOE DO K 789.00 ABDOMINAL PAIN UNSPECIFIED SITE 05/13/2013 BRYANT DOE DO K 789.00 ABDOMINAL PAIN UNSPECIFIED SITE 05/13/2013 BRYANT DOE DO K 789.00 ABDOMINAL PAIN UNSPECIFIED SITE 09/10/2017 MAURICIO OSEGUERA DO Ot 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 09/10/2017 MAURICIO OSEGUERA DO Ot E11.40 TYPE 2 DIABETES MELLITUS WITH DIABETIC N 09/10/2017 MAURICIO OSEGUERA DO Ot E78.5 HYPERLIPIDEMIA, UNSPECIFIED 09/10/2017 MAURICIO OSEGUERA DO Ot F17.210 NICOTINE DEPENDENCE, CIGARETTES, UNCOMPL 09/10/2017 MAURICIO OSEGUERA DO Ot I13.0 HYP HRT CHR KDNY DIS W HRT FAIL AND ST 09/10/2017 MAURICIO OSEGUERA DO Ot I21.4 NON-ST ELEVATION (NSTEMI) MYOCARDIAL INF 09/10/2017 MAURICIO OSEGUERA DO Ot I50.9 HEART FAILURE, UNSPECIFIED 09/10/2017 MAURICIO OSEGUERA DO Ot J44.1 CHRONIC OBSTRUCTIVE PULMONARY DISEASE W 09/10/2017 MAURICIO OSEGUERA DO Ot J96.90 RESPIRATORY FAILURE, UNSP, UNSP W HYPOXI 09/10/2017 MAURICIO OSEGUERA DO Ot N18.9 CHRONIC KIDNEY DISEASE, UNSPECIFIED 09/10/2017 MAURICIO OSEGUERA DO Ot Z79.84 PENITENTIARY (CURRENT) USE OF ORAL HYPOGLYC 09/11/2017 OSEGUERA DO, MAURICIO Ot 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 09/11/2017 OSEGUERA DO, MAURICIO Ot E11.40 TYPE 2 DIABETES MELLITUS WITH DIABETIC N 09/11/2017 OSEGUERA DO, MAURICIO Ot E78.5 HYPERLIPIDEMIA, UNSPECIFIED 09/11/2017 OSEGUERA DO, MAURICIO Ot F17.210 NICOTINE DEPENDENCE, CIGARETTES, UNCOMPL 09/11/2017 OSEGUERA DO, MAURICIO Ot I13.0 HYP HRT CHR KDNY DIS W HRT FAIL AND ST 09/11/2017 OSEGUERA DO, MAURICIO Ot I21.4 NON-ST ELEVATION (NSTEMI) MYOCARDIAL INF 09/11/2017 OSEGUERA DO, MAURICIO Ot I50.9 HEART FAILURE, UNSPECIFIED 09/11/2017 OSEGUERA DO, MAURICIO Ot J44.1 CHRONIC OBSTRUCTIVE PULMONARY DISEASE W 09/11/2017 OSEGUERA DO, MAURICIO Ot J96.90 RESPIRATORY FAILURE, UNSP, UNSP W HYPOXI 09/11/2017 OSEGUERA DO, MAURICIO Ot N18.9 CHRONIC KIDNEY DISEASE, UNSPECIFIED 09/11/2017 OSEGUERA DO, MAURICIO Ot Z79.84 SECOND BALLER (CURRENT) USE OF ORAL HYPOGLYC 09/11/2017 OSEGUERA DO, MAURICIO Ot 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 09/11/2017 OSEGUERA DO, MAURICIO Ot E11.40 TYPE 2 DIABETES MELLITUS WITH DIABETIC N 09/11/2017 OSEGUERA DO, MAURICIO Ot E78.5 HYPERLIPIDEMIA, UNSPECIFIED 09/11/2017 OSEGUERA DO, MAURICIO Ot F17.210 NICOTINE DEPENDENCE, CIGARETTES, UNCOMPL 09/11/2017 OSEGUERA DO, MAURICIO Ot I13.0 HYP HRT CHR KDNY DIS W HRT FAIL AND ST 09/11/2017 OSEGUERA DO, MAURICIO Ot I21.4 NON-ST ELEVATION (NSTEMI) MYOCARDIAL INF 09/11/2017 OSEGUERA DO, MAURICIO Ot I50.9 HEART FAILURE, UNSPECIFIED 09/11/2017 OSEGUERA DO, MAURICIO Ot J44.1 CHRONIC OBSTRUCTIVE PULMONARY DISEASE W 09/11/2017 OSEGUERA DO, MAURICIO Ot J96.90 RESPIRATORY FAILURE, UNSP, UNSP W HYPOXI 09/11/2017 OSEGUERA DO, MAURICIO Ot N18.9 CHRONIC KIDNEY DISEASE, UNSPECIFIED 09/11/2017 OSEGUERA DO, MAURICIO Ot Z79.84 SECOND BALLER (CURRENT) USE OF ORAL HYPOGLYC 09/12/2017 OSEGUERA DO, MAURICIO Ot 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 09/12/2017 OSEGUERA DO, MAURICIO Ot E11.40 TYPE 2 DIABETES MELLITUS WITH DIABETIC N 09/12/2017 OSEGUERA DO, MAURICIO Ot E78.5 HYPERLIPIDEMIA, UNSPECIFIED 09/12/2017 OSEGUERA DO, MAURICIO Ot F17.210 NICOTINE DEPENDENCE, CIGARETTES, UNCOMPL 09/12/2017 OSEGUERA DO, MAURICIO Ot I13.0 HYP HRT CHR KDNY DIS W HRT FAIL AND ST 09/12/2017 OSEGUERA DO, MAURICIO Ot I21.4 NON-ST ELEVATION (NSTEMI) MYOCARDIAL INF 09/12/2017 OSEGUERA DO, MAURICIO Ot I50.9 HEART FAILURE, UNSPECIFIED 09/12/2017 OSEGUERA DO, MAURICIO Ot J44.1 CHRONIC OBSTRUCTIVE PULMONARY DISEASE W 09/12/2017 OSEGUERA DO, MAURICIO Ot J96.90 RESPIRATORY FAILURE, UNSP, UNSP W HYPOXI 09/12/2017 OSEGUERA DO, MAURICIO Ot N18.9 CHRONIC KIDNEY DISEASE, UNSPECIFIED 09/12/2017 OSEGUERA DO, MAURICIO Ot Z79.84 PENITENTIARY (CURRENT) USE OF ORAL HYPOGLYC 09/13/2017 OSEGUERA DO, MAURICIO Ot 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 09/13/2017 OSEGUERA DO, MAURICIO Ot E11.40 TYPE 2 DIABETES MELLITUS WITH DIABETIC N 09/13/2017 OSEGUERA DO, MAURICIO Ot E78.5 HYPERLIPIDEMIA, UNSPECIFIED 09/13/2017 OSEGUERA DO, MAURICIO Ot F17.210 NICOTINE DEPENDENCE, CIGARETTES, UNCOMPL 09/13/2017 OSEGUERA DO, MAURICIO Ot I13.0 HYP HRT CHR KDNY DIS W HRT FAIL AND ST 09/13/2017 OSEGUERA DO, MAURICIO Ot I21.4 NON-ST ELEVATION (NSTEMI) MYOCARDIAL INF 09/13/2017 OSEGUERA DO, MAURICIO Ot I50.9 HEART FAILURE, UNSPECIFIED 09/13/2017 OSEGUERA DO, MAURICIO Ot J44.1 CHRONIC OBSTRUCTIVE PULMONARY DISEASE W 09/13/2017 OSEGUERA DO, MAURICIO Ot J96.90 RESPIRATORY FAILURE, UNSP, UNSP W HYPOXI 09/13/2017 OSEGUERA DO, MAURICIO Ot N18.9 CHRONIC KIDNEY DISEASE, UNSPECIFIED 09/13/2017 OSEGUERA DO, MAURICIO Ot Z79.84 PENITENTIARY (CURRENT) USE OF ORAL HYPOGLYC 09/13/2017 OSEGUERA DO, MAURICIO Ot 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 09/13/2017 OSEGUERA DO, MAURICIO Ot E11.40 TYPE 2 DIABETES MELLITUS WITH DIABETIC N 09/13/2017 OSEGUERA DO, MAURICIO Ot E78.5 HYPERLIPIDEMIA, UNSPECIFIED 09/13/2017 OSEGUERA DO, MAURICIO Ot F17.210 NICOTINE DEPENDENCE, CIGARETTES, UNCOMPL 09/13/2017 OSEGUERA DO, MAURICIO Ot I13.0 HYP HRT CHR KDNY DIS W HRT FAIL AND ST 09/13/2017 OSEGUERA DO, MAURICIO Ot I21.4 NON-ST ELEVATION (NSTEMI) MYOCARDIAL INF 09/13/2017 OSEGUERA DO, MAURICIO Ot I50.9 HEART FAILURE, UNSPECIFIED 09/13/2017 OSEGUERA DO, MAURICIO Ot J44.1 CHRONIC OBSTRUCTIVE PULMONARY DISEASE W 09/13/2017 OSEGUERA DO, MAURICIO Ot J96.90 RESPIRATORY FAILURE, UNSP, UNSP W HYPOXI 09/13/2017 OSEGUERA DO, MAURICIO Ot N18.9 CHRONIC KIDNEY DISEASE, UNSPECIFIED 09/13/2017 OSEGUERA DO, MAURICIO Ot Z79.84 SECOND BALLER (CURRENT) USE OF ORAL HYPOGLYC 09/13/2017 OSEGUERA DO, MAURICIO Ot 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 09/13/2017 OSEGUERA DO, MAURICIO Ot E11.40 TYPE 2 DIABETES MELLITUS WITH DIABETIC N 09/13/2017 OSEGUERA DO, MAURICIO Ot E11.65 TYPE 2 DIABETES MELLITUS WITH HYPERGLYCE 09/13/2017 OSEGUERA DO, MAURICIO Ot E78.5 HYPERLIPIDEMIA, UNSPECIFIED 09/13/2017 OSEGUERA DO, MAURICIO Ot F17.210 NICOTINE DEPENDENCE, CIGARETTES, UNCOMPL 09/13/2017 OSEGUERA DO, MAURICIO Ot I13.0 HYP HRT CHR KDNY DIS W HRT FAIL AND ST 09/13/2017 OSEGUERA DO, MAURICIO Ot I21.4 NON-ST ELEVATION (NSTEMI) MYOCARDIAL INF 09/13/2017 OSEGUERA DO, MAURICIO Ot I25.10 ATHSCL HEART DISEASE OF [place] CORONARY 09/13/2017 OSEGUERA DO, MAURICIO Ot 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 09/13/2017 MAURICIO OSEGUERA DO Ot I48.0 PAROXYSMAL ATRIAL FIBRILLATION 09/13/2017 MAURICIO OSEGUERA DO Ot I50.31 ACUTE DIASTOLIC (CONGESTIVE) HEART FAILU 09/13/2017 MAURICIO OSEGUERA DO Ot I50.9 HEART FAILURE, UNSPECIFIED 09/13/2017 MUARICIO OSEGUERA DO Ot J02.9 ACUTE PHARYNGITIS, UNSPECIFIED 09/13/2017 MAURICIO OSEGUERA DO Ot J11.1 FLU DUE TO UNIDENTIFIED INFLUENZA VIRUS 09/13/2017 MAURICIO OSEGUERA DO Ot J44.1 CHRONIC OBSTRUCTIVE PULMONARY DISEASE W 09/13/2017 MAURICIO OSEGUERA DO Ot J96.90 RESPIRATORY FAILURE, UNSP, UNSP W HYPOXI 09/13/2017 MAURICIO OSEGUERA DO Ot J98.11 ATELECTASIS 09/13/2017 MAURICIO OSEGUERA DO Ot N17.9 ACUTE KIDNEY FAILURE, UNSPECIFIED 09/13/2017 MAURICIO OSEGUERA DO Ot N18.9 CHRONIC KIDNEY DISEASE, UNSPECIFIED 09/13/2017 MAURICIO OSEGUERA DO Ot T38.0X5A ADVERSE EFFECT OF GLUCOCORT/SYNTH ANALOG 09/13/2017 MAURICIO OSEGUERA DO Ot Z79.84 SECOND BALLER (CURRENT) USE OF ORAL HYPOGLYC Procedures Code Description [place] [address] ROUTINE VENIPUNCTURE 03/21/2013 52115 A1C (IN-HOUSE) 03/21/2013 37899 CBC 03/21/2013 20927 CMP 03/21/2013 [id number] GFR CALC (RESULT ONLY) 03/21/2013 49898 VIT B 12 03/21/2013 20216 FOLATE 03/21/2013 32029 TSH 03/21/2013 DEV FALCON 03/21/[address] CHEST W/DYE 04/25/[address] ABDOMEN W/ CONTRAST 04/25/2013 22385 US ABDOMEN ULTRASOUND, LIMITED (SPECIFY ORGAN) 05/13/2013 20599 A1C (IN-HOUSE) 08/26/20138F FOOT EXAM PERFORMED 08/26/2013 [id number] DILATION OF 1 COR ART WITH DRUG-ELUT INT 09/12/2017 [id number] MEASURE OF CARDIAC SAMPL PRESSURE, L H 09/12/2017 [id number] FLUOROSCOPY OF MULT COR ART USING L OSM 09/12/2017 Results Test Result Range Complete blood count [...] 09/09/17 18:49 Blood monocytes/100 leukocytes 6 % NR Manual blood segmented neutrophils/100 leukocytes 52 % NRG Blood band neutrophils/100 leukocytes 2 % NRG Manual blood lymphocytes/100 leukocytes 40 % NRG Manual eosinophils/100 leukocytes in nose 0 % NRG Manual blood basophils/100 leukocytes 0 % NR Blood erythrocyte morphology finding identification NORMAL NR [...] plasma ethanol measurement (mass/volume) 15 mg/dL <10 Bacterial blood culture - 09/09/17 18:49 Bacterial blood culture NG [facility] Bacterial blood culture - 09/09/17 19:05 QUANTITY OF GROWTH . [facility] Bacterial blood culture SEE COMMEN [facility] Sputum Gram stain - 09/09/17 19:55 GRAM STAIN SPUTUM AND MIXED BACTERIAL [facility] Bacterial sputum culture - 09/09/17 19:55 FREE TEXT EXTERNAL ISOLATE WILL BE SENT TO [facility] REFERENCE [facility] QUANTITY OF GROWTH Abundant Growth [facility] FREE TEXT ENTRY 2 LAB FOR SENSITIVITY TESTING ON 09/13/17 [facility] FREE TEXT ENTRY 3 PLUS NORMAL [facility] Bacterial sputum culture [id number] [facility] Influenza virus A and B antigen detection - 09/09/17 20:18 CALL POSITIVES (F1 HELP) ED [facility] FLU RESULT POSITIVE FOR INFLUENZA B ANTIGEN, NEG FOR A ANTIGEN, BY IA [facility] Urine drug screening test - 09/09/17 21:45 Urine phencyclidine detection by screening method NEGATIVE NEGATIVE Urine benzodiazepines detection by screening method NEGATIVE NEGATIVE Urine cocaine detection NEGATIVE NEGATIVE Urine amphetamines detection by screening method NEGATIVE NEGATIVE Urine methamphetamine detection by screening method NEGATIVE NEGATIVE Urine cannabinoids detection by screening method POSITIVE NEGATIVE Urine opiates detection by screening method NEGATIVE NEGATIVE Urine barbiturates detection NEGATIVE NEGATIVE Screening urine tricyclic antidepressants detection NEGATIVE NEGATIVE Urine methadone detection by screening method NEGATIVE NEGATIVE Urine oxycodone detection NEGATIVE NEGATIVE Urine propoxyphene detection NEGATIVE NEGATIVE Methicillin resistant Staphylococcus aureus (MRSA) screening culture - 22:16 Methicillin resistant Staphylococcus aureus (MRSA) screening culture NEG NRG Serum or plasma troponin i.cardiac measurement (mass/volume) - 09/09/17 23:45 Serum or plasma troponin i.cardiac measurement (mass/volume) 1.78 ng /mL <0.30 Complete blood count (CBC) with automated white blood cell (WBC) differential - 09/10/17 05:30 Blood leukocytes automated count (number/volume) 6.8 10*3/uL 4.3-11.0 Blood erythrocytes automated count (number/volume) 4.42 10*6/uL 4.35-5.85 Venous blood hemoglobin measurement (mass/volume) 13.1 g/dL 13.3-17.7 Blood hematocrit (volume fraction) 39 % 40-54 Automated erythrocyte mean corpuscular volume 89 [foz_us] 80-99 Automated erythrocyte mean corpuscular hemoglobin (mass per erythrocyte) 30 pg 25-34 Automated erythrocyte mean corpuscular hemoglobin concentration measurement ( mass/volume) 33 g/dL 32-36 Automated erythrocyte distribution width ratio 14.1 % 10.0-14.5 Automated blood platelet count (count/volume) 230 10*3/uL 130-400 Automated blood platelet mean volume measurement 10.2 [foz_us] 7.4-10.4 Automated blood neutrophils/100 leukocytes 90 % 42-75 Automated blood lymphocytes/100 leukocytes 8 % 12-44 Blood monocytes/100 leukocytes 2 % 0-12 Automated blood eosinophils/100 leukocytes 0 % 0-10 Automated blood basophils/100 leukocytes 0 % 0-10 Blood neutrophils automated count (number/volume) 6.1 10*3 1.8-7.8 Blood lymphocytes automated count (number/volume) 0.5 10*3 1.0-4.0 Blood monocytes automated count (number/volume) 0.2 10*3 0.0-1.0 Automated eosinophil count 0.0 10*3/uL 0.0-0.3 Automated blood basophil count (count/volume) 0.0 10*3/uL 0.0-0.1 Whole blood basic metabolic panel - 09/10/17 05:30 Serum or plasma sodium measurement (moles/volume) 136 mmol/L 135-145 Serum or plasma potassium measurement (moles/volume) 3.6 mmol/L 3.6-5.0 Serum or plasma chloride measurement (moles/volume) 97 mmol/L 98-107 Carbon dioxide 21 mmol/L 21-32 Serum or plasma anion gap determination (moles/volume) 18 mmol/L 5-14 Serum or plasma urea nitrogen measurement (mass/volume) 25 mg/dL 7-18 Serum or plasma creatinine measurement (mass/volume) 1.63 mg/dL 0.60-1.30 Serum or plasma urea nitrogen/creatinine mass ratio 15 NRG Serum or plasma creatinine measurement with calculation of estimated glomerular filtration rate 43 NRG Serum or plasma glucose measurement (mass/volume) 504 mg/dL 70-105 Serum or plasma calcium measurement (mass/volume) 9.3 mg/dL 8.5-10.1 Serum or plasma phosphate measurement (mass/volume) - 09/10/17 05:30 Serum or plasma phosphate measurement (mass/volume) 5.7 mg/dL 2.3-4.7 Magnesium - 09/10/17 05:30 Magnesium 1.7 mg/dL 1.8-2.4 Lipid 1996 panel - 09/10/17 05:30 Serum or plasma triglyceride measurement (mass/volume) 134 mg/dL <150 Serum or plasma cholesterol measurement (mass/volume) 179 mg/dL < 200 Serum or plasma cholesterol in HDL measurement (mass/volume) 31 mg/ dL 40-60 Cholesterol in LDL [mass/volume] in serum or plasma by direct assay 126 mg/dL 1-129 Serum or plasma cholesterol in VLDL measurement (mass/volume) 27 mg/ dL 5-40 Serum or plasma troponin i.cardiac measurement (mass/volume) - 09/10/17 05:30 Serum or plasma troponin i.cardiac measurement (mass/volume) 1.00 ng /mL <0.30 Serum or plasma lithium measurement (moles/volume) - 09/10/17 05:30 BNP level 868.7 pg/mL <100.0 Fibrin D-dimer FEU measurement in platelet poor plasma (mass/volume) - 05:30 Fibrin D-dimer FEU measurement in platelet poor plasma (mass/volume) 0.74 ug/mL 0.00-0.49 Capillary blood glucose measurement by glucometer (mass/volume) - 09/10/17 08: 47 Capillary blood glucose measurement by glucometer (mass/volume) 484 mg/dL 70-110 Hemoglobin A1c - 09/10/17 10:30 Blood hemoglobin A1C measurement (mass/volume) 11.8 % 4.0 -5.6 MEAN BLOOD GLUCOSE 292 % <=126 Capillary blood glucose measurement by glucometer (mass/volume) - 09/10/17 11: 32 Capillary blood glucose measurement by glucometer (mass/volume) 454 mg/dL 70-110 Complete urinalysis with reflex to culture - 09/10/17 14:45 Urine color determination YELLOW NRG Urine clarity determination CLEAR NRG Urine pH measurement by test strip 5 5-9 Specific gravity of urine by test strip 1.010 1.016- 1.022 Urine protein assay by test strip, semi-quantitative 2+ NEGATIVE Urine glucose detection by automated test strip 4+ NEGATIVE Erythrocytes detection in urine sediment by light microscopy NEGATIVE NEGATIVE Urine ketones detection by automated test strip NEGATIVE NEGATIVE Urine nitrite detection by test strip NEGATIVE NEGATIVE Urine total bilirubin detection by test strip NEGATIVE NEGATIVE Urine urobilinogen measurement by automated test strip (mass/volume) NORMAL NORMAL Urine leukocyte esterase detection by dipstick NEGATIVE NEGATIVE Automated urine sediment erythrocyte count by microscopy (number/high power field) NONE NRG Automated urine sediment leukocyte count by microscopy (number/high power field ) NONE NRG Bacteria detection in urine sediment by light microscopy NONE NRG Squamous epithelial cells detection in urine sediment by light microscopy 2-5 NRG Crystals detection in urine sediment by light microscopy NONE NRG Casts detection in urine sediment by light microscopy PRESENT NRG Mucus detection in urine sediment by light microscopy NEGATIVE NRG Complete urinalysis with reflex to culture NO NRG Hyaline casts detection in urine sediment by light microscopy 10-25 NRG Capillary blood glucose measurement by glucometer (mass/volume) - 09/10/17 15: 04 Capillary blood glucose measurement by glucometer (mass/volume) 414 mg/dL 70-110 Capillary blood glucose measurement by glucometer (mass/volume) - 09/10/17 20: 48 Capillary blood glucose measurement by glucometer (mass/volume) 292 mg/dL 70-110 Complete blood count (CBC) with automated white blood cell (WBC) differential - 09/11/17 05:05 Blood leukocytes automated count (number/volume) 13.1 10*3/uL 4.3-11.0 Blood erythrocytes automated count (number/volume) 4.42 10*6/uL 4.35-5.85 Venous blood hemoglobin measurement (mass/volume) 13.2 g/dL 13.3-17.7 Blood hematocrit (volume fraction) 39 % 40-54 Automated erythrocyte mean corpuscular volume 89 [foz_us] 80-99 Automated erythrocyte mean corpuscular hemoglobin (mass per erythrocyte) 30 pg 25-34 Automated erythrocyte mean corpuscular hemoglobin concentration measurement ( mass/volume) 34 g/dL 32-36 Automated erythrocyte distribution width ratio 14.4 % 10.0-14.5 Automated blood platelet count (count/volume) 259 10*3/uL 130-400 Automated blood platelet mean volume measurement 10.2 [foz_us] 7.4-10.4 Automated blood neutrophils/100 leukocytes 95 % 42-75 Automated blood lymphocytes/100 leukocytes 4 % 12-44 Blood monocytes/100 leukocytes 2 % 0-12 Automated blood eosinophils/100 leukocytes 0 % 0-10 Automated blood basophils/100 leukocytes 0 % 0-10 Blood neutrophils automated count (number/volume) 12.4 10*3 1.8-7.8 Blood lymphocytes automated count (number/volume) 0.5 10*3 1.0-4.0 Blood monocytes automated count (number/volume) 0.2 10*3 0.0-1.0 Automated eosinophil count 0.0 10*3/uL 0.0-0.3 Automated blood basophil count (count/volume) 0.0 10*3/uL 0.0-0.1 Whole blood basic metabolic panel - 09/11/17 05:05 Serum or plasma sodium measurement (moles/volume) 135 mmol/L 135-145 Serum or plasma potassium measurement (moles/volume) 3.9 mmol/L 3.6-5.0 Serum or plasma chloride measurement (moles/volume) 96 mmol/L 98-107 Carbon dioxide 21 mmol/L 21-32 Serum or plasma anion gap determination (moles/volume) 18 mmol/L 5-14 Serum or plasma urea nitrogen measurement (mass/volume) 36 mg/dL 7-18 Serum or plasma creatinine measurement (mass/volume) 1.65 mg/dL 0.60-1.30 Serum or plasma urea nitrogen/creatinine mass ratio 22 NRG Serum or plasma creatinine measurement with calculation of estimated glomerular filtration rate 42 NRG Serum or plasma glucose measurement (mass/volume) 556 mg/dL 70-105 Serum or plasma calcium measurement (mass/volume) 8.9 mg/dL 8.5-10.1 Serum or plasma phosphate measurement (mass/volume) - 09/11/17 05:05 Serum or plasma phosphate measurement (mass/volume) 5.9 mg/dL 2.3-4.7 Magnesium - 09/11/17 05:05 Magnesium 2.1 mg/dL 1.8-2.4 Capillary blood glucose measurement by glucometer (mass/volume) - 09/11/17 11: 03 Capillary blood glucose measurement by glucometer (mass/volume) 497 mg/dL 70-110 Capillary blood glucose measurement by glucometer (mass/volume) - 09/11/17 16: 20 Capillary blood glucose measurement by glucometer (mass/volume) 387 mg/dL 70-110 Capillary blood glucose measurement by glucometer (mass/volume) - 09/11/17 22: 04 Capillary blood glucose measurement by glucometer (mass/volume) 254 mg/dL 70-110 Complete blood count (CBC) with automated white blood cell (WBC) differential - 09/12/17 04:51 Blood leukocytes automated count (number/volume) 18.4 10*3/uL 4.3-11.0 Blood erythrocytes automated count (number/volume) 4.63 10*6/uL 4.35-5.85 Venous blood hemoglobin measurement (mass/volume) 13.9 g/dL 13.3-17.7 Blood hematocrit (volume fraction) 41 % 40-54 Automated erythrocyte mean corpuscular volume 89 [foz_us] 80-99 Automated erythrocyte mean corpuscular hemoglobin (mass per erythrocyte) 30 pg 25-34 Automated erythrocyte mean corpuscular hemoglobin concentration measurement ( mass/volume) 34 g/dL 32-36 Automated erythrocyte distribution width ratio 14.5 % 10.0-14.5 Automated blood platelet count (count/volume) 276 10*3/uL 130-400 Automated blood platelet mean volume measurement 10.1 [foz_us] 7.4-10.4 Automated blood neutrophils/100 leukocytes 93 % 42-75 Automated blood lymphocytes/100 leukocytes 4 % 12-44 Blood monocytes/100 leukocytes 3 % 0-12 Automated blood eosinophils/100 leukocytes 0 % 0-10 Automated blood basophils/100 leukocytes 0 % 0-10 Blood neutrophils automated count (number/volume) 17.0 10*3 1.8-7.8 Blood lymphocytes automated count (number/volume) 0.8 10*3 1.0-4.0 Blood monocytes automated count (number/volume) 0.6 10*3 0.0-1.0 Automated eosinophil count 0.0 10*3/uL 0.0-0.3 Automated blood basophil count (count/volume) 0.0 10*3/uL 0.0-0.1 Blood manual differential performed detection - 09/12/17 04:51 Blood monocytes/100 leukocytes 1 % NRG Manual blood segmented neutrophils/100 leukocytes 95 % NRG Blood band neutrophils/100 leukocytes 0 % NRG Manual blood lymphocytes/100 leukocytes 4 % NRG Manual eosinophils/100 leukocytes in nose 0 % NRG Manual blood basophils/100 leukocytes 0 % NRG Blood erythrocyte morphology finding identification NORMAL NRG Whole blood basic metabolic panel - 09/12/17 04:51 Serum or plasma sodium measurement (moles/volume) 133 mmol/L 135-145 Serum or plasma potassium measurement (moles/volume) 4.0 mmol/L 3.6-5.0 Serum or plasma chloride measurement (moles/volume) 96 mmol/L 98-107 Carbon dioxide 24 mmol/L 21-32 Serum or plasma anion gap determination (moles/volume) 13 mmol/L 5-14 Serum or plasma urea nitrogen measurement (mass/volume) 51 mg/dL 7-18 Serum or plasma creatinine measurement (mass/volume) 1.44 mg/dL 0.60-1.30 Serum or plasma urea nitrogen/creatinine mass ratio 35 NRG Serum or plasma creatinine measurement with calculation of estimated glomerular filtration rate 50 NRG Serum or plasma glucose measurement (mass/volume) 244 mg/dL 70-105 Serum or plasma calcium measurement (mass/volume) 8.5 mg/dL 8.5-10.1 Magnesium - 09/12/17 04:51 Magnesium 2.1 mg/dL 1.8-2.4 Capillary blood glucose measurement by glucometer (mass/volume) - 09/12/17 16: 01 Capillary blood glucose measurement by glucometer (mass/volume) 376 mg/dL 70-110 Capillary blood glucose measurement by glucometer (mass/volume) - 09/12/17 20: 24 Capillary blood glucose measurement by glucometer (mass/volume) 347 mg/dL 70-110 Complete blood count (CBC) with automated white blood cell (WBC) differential - 09/13/17 04:16 Blood leukocytes automated count (number/volume) 15.5 10*3/uL 4.3-11.0 Blood erythrocytes automated count (number/volume) 4.48 10*6/uL 4.35-5.85 Venous blood hemoglobin measurement (mass/volume) 13.4 g/dL 13.3-17.7 Blood hematocrit (volume fraction) 40 % 40-54 Automated erythrocyte mean corpuscular volume 90 [foz_us] 80-99 Automated erythrocyte mean corpuscular hemoglobin (mass per erythrocyte) 30 pg 25-34 Automated erythrocyte mean corpuscular hemoglobin concentration measurement ( mass/volume) 33 g/dL 32-36 Automated erythrocyte distribution width ratio 14.5 % 10.0-14.5 Automated blood platelet count (count/volume) 270 10*3/uL 130-400 Automated blood platelet mean volume measurement 10.3 [foz_us] 7.4-10.4 Automated blood neutrophils/100 leukocytes 92 % 42-75 Automated blood lymphocytes/100 leukocytes 3 % 12-44 Blood monocytes/100 leukocytes 5 % 0-12 Automated blood eosinophils/100 leukocytes 0 % 0-10 Automated blood basophils/100 leukocytes 0 % 0-10 Blood neutrophils automated count (number/volume) 14.2 10*3 1.8-7.8 Blood lymphocytes automated count (number/volume) 0.5 10*3 1.0-4.0 Blood monocytes automated count (number/volume) 0.7 10*3 0.0-1.0 Automated eosinophil count 0.0 10*3/uL 0.0-0.3 Automated blood basophil count (count/volume) 0.0 10*3/uL 0.0-0.1 Whole blood basic metabolic panel - 09/13/17 04:16 Serum or plasma sodium measurement (moles/volume) 135 mmol/L 135-145 Serum or plasma potassium measurement (moles/volume) 4.2 mmol/L 3.6-5.0 Serum or plasma chloride measurement (moles/volume) 104 mmol/L 98-107 Carbon dioxide 22 mmol/L 21-32 Serum or plasma anion gap determination (moles/volume) 9 mmol/L 5-14 Serum or plasma urea nitrogen measurement (mass/volume) 42 mg/dL 7-18 Serum or plasma creatinine measurement (mass/volume) 1.18 mg/dL 0.60-1.30 Serum or plasma urea nitrogen/creatinine mass ratio 36 NRG Serum or plasma creatinine measurement with calculation of estimated glomerular filtration rate > NRG Serum or plasma glucose measurement (mass/volume) 186 mg/dL 70-105 Serum or plasma calcium measurement (mass/volume) 8.2 mg/dL 8.5-10.1 Magnesium - 09/13/17 04:16 Magnesium 2.3 mg/dL 1.8-2.4 Capillary blood glucose measurement by glucometer (mass/volume) - 09/13/17 11: 06 Capillary blood glucose measurement by glucometer (mass/volume) 195 mg/dL 70-110 Encounters ACCT No. Visit Date/Time Discharge Status Pt. Type Provider Facility Loc./Unit Complaint [id number] 09/09/2017 20:12:00 09/13/2017 14:40:00 DIS Outpatient MAURICIO OSEGUERA DO [facility] ICU NSTEMI;CHF;HTN;NIDDM; ACUTE RESPIRATORY FAILURE [id number] 06/21/2013 11:02:00 06/21/2013 17:10:00 DIS Outpatient [id number] 06/16/2013 09:12:00 06/16/2013 23:59:59 CLS Outpatient [id number] 05/18/2013 08:00:00 05/18/2013 23:59:59 CLS Outpatient [id number] 04/27/2013 08:49:00 04/27/2013 23:59:59 CLS Outpatient [id number] 04/12/2013 13:20:00 04/12/2013 16:07:00 DIS Emergency [id number] 02/07/2013 08:57:00 02/07/2013 13:27:00 DIS Emergency [id number] 08/26/2013 09:37:00 08/26/2013 23:59:59 CLS Outpatient BRYANT DOE DO [id number] 08/26/2013 09:37:00 08/26/2013 23:59:59 CLS Outpatient BRYANT DOE DO [id number] 06/20/2013 13:28:00 06/20/2013 23:59:59 CLS Outpatient BRYANT DOE DO [id number] 05/13/2013 09:36:00 05/13/2013 23:59:59 CLS Outpatient BRYANT DOE DO [id number] 04/25/2013 15:41:00 04/25/2013 23:59:59 CLS Outpatient BRYANT DOE DO [id number] 04/25/2013 00:00:00 04/25/2013 23:59:59 [facility] Outpatient BRYANT DOE DO [id number] 03/21/2013 13:47:00 Document Registration
[2017-09-15] MEDS ORDERED: FUROSEMIDE 40 MG/4 ML INJ (LASIX) ONE (01:39)
[2017-09-15] MEDS ORDERED: morphine INJ 10 MG/ML 1ML (SYR OR VIAL) ONE (01:39)
[2017-09-15] MEDS ORDERED: morphine INJ 10 MG/ML 1ML (SYR OR VIAL) IV STA (01:40)
[2017-09-15] MEDS ORDERED: LORazepam INJ 2 MG/ML (ATIVAN) VIAL ONE (01:40)
[2017-09-15] MEDS ORDERED: NITROGLYCERIN DRIP 25 MG/D5W 250 ML IV ONE (01:44)
[2017-09-15] MEDS ORDERED: LORazepam INJ 2 MG/ML (ATIVAN) VIAL IVP ONE (01:45)
[2017-09-15] MEDS ORDERED: NITROGLYCERIN DRIP 25 MG/D5W 250 ML IV SCH ×2 (01:45)
[2017-09-15] MEDS ORDERED: FUROSEMIDE 40 MG/4 ML INJ (LASIX) IVP ONE (01:45)
[2017-09-15 01:49] LABS: BASOPHILS # (AUTO) 0.1 10^3/uL (0.0-0.1); BASOPHILS % (AUTO) 0 % (0-10); EOSINOPHILS # (AUTO) 0.1 10^3/uL (0.0-0.3); EOSINOPHILS % (AUTO) 1 % (0-10); HEMATOCRIT 45 % (40-54); HEMOGLOBIN 14.7 G/DL (13.3-17.7); LYMPHOCYTES % (AUTO) 25 % (12-44); MEAN CORPUSCULAR HEMOGLOBIN 30 PG (25-34); MEAN CORPUSCULAR HGB CONC 33 G/DL (32-36); MEAN CORPUSCULAR VOLUME 91 FL (80-99); MEAN PLATELET VOLUME 10.2 FL (7.4-10.4); MONOCYTES % (AUTO) 10 % (0-12); NEUTROPHILS # (AUTO) 13.1 X 10^3 (1.8-7.8); NEUTROPHILS % (AUTO) 65 % (42-75); PLATELET COUNT 330 10^3/uL (130-400); RED BLOOD COUNT 4.92 10^6/uL (4.35-5.85); RED CELL DISTRIBUTION WIDTH 14.4 % (10.0-14.5); WHITE BLOOD COUNT 20.3 10^3/uL (4.3-11.0)
[2017-09-15] MEDS ORDERED: ONDANSETRON 4 MG/2 ML (SDV) Z0FRAN ONE (01:49)
[2017-09-15 01:56] LABS: INR 0.9 (0.8-1.4); PROTHROMBIN TIME PATIENT 12.6 SEC (12.2-14.7)
[2017-09-15 02:01] LABS: BAND NEUTROPHILS 0 %; BASOPHILS % (MANUAL) 0 %; EOSINOPHILS % (MANUAL) 2 %; LYMPHOCYTES % (MANUAL) 25 %; MONOCYTES % (MANUAL) 7 %; NEUTROPHILS % (MANUAL) 62 %; REACTIVE LYMPHOCYTES 4 %; TOXIC GRANULATION/VACUOLAZATIO 1+
--- NOTE | 2017-09-15 02:08 | ED Respiratory ---
General Chief Complaint: Respiratory Problems Stated Complaint: POSS FLU,JUST HAD HEART ATTACH Source: patient, family Exam Limitations: clinical condition History of Present Illness Date Seen by Provider: Sep 15, 2017 Time Seen by Provider: 01:32 Initial Comments Here with report of acute onset of shortness of breath. Patient is in extremis on arrival, sweating, pale and severe respiratory distress. Arrives with his sister. Does have history of heart failure as well as recent heart stent placement within the last week. On discharge she had difficulty getting his medicines at the clinic per the family. Reportedly is on his medicines as he got a short course pending getting his full dosing. Has appointment scheduled with Dr. Rodríguez on October 20 in follow-up and will follow-up the clinic. Timing/Duration: this evening Severity: severe Prior Episodes/Possible Cause: occasional episodes Modifying Factors: Improves With Oxygen, Improves With Rest Associated Symptoms: cough, No fever/chills, No nasal congestion, No nasal drainage, shortness of breath, No wheezing Allergies and Home Medications Allergies Coded Allergies: No Known Drug Allergies (Unverified , 02/07/13) Home Medications Amlodipine Besylate 5 Mg Tablet, 5 MG PO DAILY, (Reported) LAST FILLED #30 8-24-17 Aspirin 81 Mg Tab.chew, 81 MG PO DAILY for 30 Days, #30 Ref 3 Prescribed by: Ignacio CID on 09/13/17 1302 Atorvastatin Calcium 40 Mg Tablet, 40 MG PO HS for 90 Days, #90 Ref 3 Prescribed by: Ignacio CID on 09/13/17 1302 Cefdinir 300 Mg Capsule, 300 MG PO BID, #14 Prescribed by: MAURICIO OSEGUERA on 09/13/17 1239 Clopidogrel Bisulfate 75 Mg Tablet, 75 MG PO DAILY for 90 Days, #90 Ref 3 Prescribed by: Ignacio CID on 09/13/17 1302 Gabapentin 300 Mg Capsule, 600 MG PO TID, #30 Prescribed by: MAURICIO OSEGUERA on 09/13/17 1232 Glyburide 2.5 Mg Tablet, 2.5 MG PO DAILY, #10 Prescribed by: MAURICIO OSEGUERA on 09/13/17 1232 Lisinopril 20 Mg Tablet, 20 MG PO DAILY for 90 Days, #90 Ref 3 Prescribed by: Ignacio CID on 09/13/17 1302 Metformin HCl 500 Mg Tablet, 500 MG PO BID, #20 Prescribed by: MAURICIO OSEGUERA on 09/13/17 1232 Metoprolol Tartrate 50 Mg Tablet, 50 MG PO BID for 90 Days, #180 Ref 3 Prescribed by: Ignacio CID on 09/13/17 1302 Oseltamivir Phosphate 30 Mg Capsule, 0 EACH PO BID for 2 Days Prescribed by: MAURICIO OSEGUERA on 09/13/17 1232 Prednisone 10 Mg Tab.ds.pk, 10 MG PO DAILY, #3 Prescribed by: MAURICIO OSEGUERA on 09/13/17 1232 Rivaroxaban 15 Mg Tablet, 15 MG PO DAILY for 30 Days, #30 Ref 4 Prescribed by: Ignacio CID on 09/13/17 1302 Constitutional: see HPI, No chills, diaphoresis, No fever EENTM: no symptoms reported Respiratory: see HPI, dyspnea on exertion, orthopnea, short of breath Cardiovascular: No chest pain, edema, No palpitations Gastrointestinal: No abdominal pain, No nausea, No vomiting Genitourinary: no symptoms reported Musculoskeletal: no symptoms reported Skin: change in color, No lesions Psychiatric/Neurological: No Symptoms Reported All Other Systems Reviewed Negative Unless Noted: Yes Past [id number]-[id number] Hx Patient Social History Drug of Choice: OCCASIONAL MARIJUANA USE Type Used: Cigarettes, Electronic/Vapor Recent Foreign Travel: No Contact w/Someone Who Travel: No Recent Hopitalizations: No Immunizations Up To Date PED Vaccines UTD: No Date of Pneumonia Vaccine: Sep 09, 2014 Seasonal Allergies Seasonal Allergies: No Surgeries History of Surgeries: Yes (HERNIA REPAIR) Respiratory History of Respiratory Disorde: Yes (HX OF CHF-RESP DISTRESS) Currently Using CPAP: No Currently Using BIPAP: No Cardiovascular History of Cardiac Disorders: Yes ("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[place]") Cardiac Disorders: Heart Attack, High Cholesterol, Hypertension Neurological History of Neurological Disord: Yes (NEUROPATHY IN FEET) Neurological Disorders: Neuropathy Reproductive System Hx Reproductive Disorders: No Sexually Transmitted Disease: No HIV/AIDS: No Genitourinary History of Genitourinary Disor: Yes Genitourinary Disorders: Renal Failure Gastrointestinal History of Gastrointestinal Di: Yes (VENTRAL HERNIA) Gastrointestinal Disorders: Pancreatitis Musculoskeletal History of Musculoskeletal Dis: No Endocrine History of Endocrine Disorders: Yes Endocrine Disorders: Diabetes, Non-Insulin dep HEENT History of HEENT Disorders: No Cancer History of Cancer: No Psychosocial History of Psychiatric Problem: Yes Behavioral Health Disorders: Anxiety, Depression Integumentary History of Skin or Integumenta: No Blood Transfusions History of Blood Disorders: No Adverse Reaction to a Blood Tr: No Reviewed Nursing Assessment Reviewed/Agree w Nursing PMH: Yes Family Medical History Significant Family History: No Pertinent Family Hx Physical Exam Vital Signs Vital Sign - Last 12Hours 09/15/17 01:25 Temp 96.9 Pulse 110 Resp 26 B/P (MAP) 219/124 (155) Pulse Ox 86 O2 Delivery Room Air Capillary Refill : General Appearance: WD/WN, severe distress HEENT: PERRL/EOMI, pharynx normal Neck: full range of motion, supple Respiratory: respiratory distress, decreased breath sounds, accessory muscle use, crackles Cardiovascular: JVD, tachycardia Gastrointestinal: non tender, soft Extremities: non-tender, pedal edema (2+ to the level of the knees bilateral) Neurologic/Psychiatric: alert, oriented x 3 Skin: cool, damp, pallor Progress/Results/Core Measures Suspected Sepsis SIRS Temperature: Pulse: Respiratory Rate: Laboratory Tests 09/15/17 01:38: White Blood Count 20.3H Blood Pressure / Mean: Laboratory Tests 09/15/17 01:38: Creatinine 1.31H, INR Comment 0.9, Platelet Count 330, Total Bilirubin 0.4 Results/Orders Lab Results Laboratory Tests Test 09/15/17 01:38 Range/Units White Blood Count 20.3 H 4.3-11.0 10^3/uL Red Blood Count 4.92 4.35-5.85 10^6/uL Hemoglobin 14.7 13.3-17.7 G/DL Hematocrit 45 40-54 % Mean Corpuscular Volume 91 80-99 FL Mean Corpuscular Hemoglobin 30 25-34 PG Mean Corpuscular Hemoglobin Concent 33 32-36 G/DL Red Cell Distribution Width 14.4 10.0-14.5 % Platelet Count 330 130-400 10^3/uL Mean Platelet Volume 10.2 7.4-10.4 FL Neutrophils (%) (Auto) 65 42-75 % Lymphocytes (%) (Auto) 25 12-44 % Monocytes (%) (Auto) 10 0-12 % Eosinophils (%) (Auto) 1 0-10 % Basophils (%) (Auto) 0 0-10 % Neutrophils # (Auto) 13.1 H 1.8-7.8 X 10^3 Lymphocytes # (Auto) 5.0 H 1.0-4.0 X 10^3 Monocytes # (Auto) 2.0 H 0.0-1.0 X 10^3 Eosinophils # (Auto) 0.1 0.0-0.3 10^3/uL Basophils # (Auto) 0.1 0.0-0.1 10^3/uL Neutrophils % (Manual) 62 % Lymphocytes % (Manual) 25 % Monocytes % (Manual) 7 % Eosinophils % (Manual) 2 % Basophils % (Manual) 0 % Band Neutrophils 0 % Reactive Lymphocytes 4 % Toxic Granulation 1+ Prothrombin Time 12.6 12.2-14.7 SEC INR Comment 0.9 0.8-1.4 Activated Partial Thromboplast Time 23 L 24-35 SEC Sodium Level 135 135-145 MMOL/L Potassium Level 4.3 3.6-5.0 MMOL/L Chloride Level 101 98-107 MMOL/L Carbon Dioxide Level 22 21-32 MMOL/L Anion Gap 12 5-14 MMOL/L Blood Urea Nitrogen 37 H 7-18 MG/DL Creatinine 1.31 H 0.60-1.30 MG/DL Estimat Glomerular Filtration Rate 55 BUN/Creatinine Ratio 28 Glucose Level 340 H 70-105 MG/DL Calcium Level 8.9 8.5-10.1 MG/DL Magnesium Level 2.5 H 1.8-2.4 MG/DL Total Bilirubin 0.4 0.1-1.0 MG/DL Aspartate Amino Transf (AST/SGOT) 25 5-34 U/L Alanine Aminotransferase (ALT/SGPT) 34 0-55 U/L Alkaline Phosphatase 87 40-136 U/L Myoglobin 77.3 10.0-92.0 NG/ML Troponin I 0.40 *H <0.30 NG/ML B-Type Natriuretic Peptide 958.4 H <100.0 PG/ML Total Protein 7.6 6.4-8.2 GM/DL Albumin 3.9 3.2-4.5 GM/DL My Orders Orders - MARIJA BOYER MD Cbc With Automated Diff (09/15/17 01:40) Magnesium (09/15/17 01:40) Chest 1 View, Ap/Pa Only (09/15/17 01:40) Ekg Tracing (09/15/17 01:40) Cardiac Profile 1 (09/15/17 01:40) Comprehensive Metabolic Panel (09/15/17 01:40) Myoglobin Serum (09/15/17 01:40) Protime With Inr (09/15/17 01:40) Partial Thromboplastin Time (09/15/17 01:40) O2 (09/15/17 01:40) Monitor-Rhythm Ecg Trace Only (09/15/17 01:40) Lipid Panel (09/16/17 06:00) Morphine Injection (Morphine Injection (09/15/17 01:40) Saline Lock/Iv-Start (09/15/17 01:40) BNP (09/15/17 01:40) Furosemide Injection (Lasix Injection) (09/15/17 01:45) Morphine Injection (Morphine Injection (09/15/17 01:39) Furosemide Injection (Lasix Injection) (09/15/17 01:39) Lorazepam Injection (Ativan Injection) (09/15/17 01:40) Nitroglycerin Drip 25 Mg/D5w (Nitroglyce (09/15/17 01:45) Lorazepam Injection (Ativan Injection) (09/15/17 01:45) Nitroglycerin Drip 25 Mg/D5w (Nitroglyce (09/15/17 01:45) Nitroglycerin Drip 25 Mg/D5w (Nitroglyce (09/15/17 01:44) Ondansetron Injection (Zofran Injectio (09/15/17 01:49) Manual Differential (09/15/17 01:38) Morphine Injection (Morphine Injection (09/15/17 02:15) Lactic Acid Analyzer (09/15/17 02:41) Blood Culture (09/15/17 02:41) Medications Given in ED Current Medications Medications Dose Ordered Sig/Aris Route Start Time Stop Time Status Last Admin Dose Admin Furosemide 80 mg ONCE ONCE IVP 09/15/17 01:45 09/15/17 01:46 DC 09/15/17 01:50 80 MG Lorazepam 0.5 mg ONCE ONCE IVP 09/15/17 01:45 09/15/17 01:46 DC 09/15/17 01:50 0.5 MG Morphine Sulfate 2 mg ONCE ONCE IVP 09/15/17 02:15 09/15/17 02:16 DC 09/15/17 01:50 2 MG Ondansetron HCl 4 mg STK-MED ONCE .ROUTE 09/15/17 01:49 09/15/17 01:51 DC 09/15/17 01:46 4 MG Vital Signs/I&O Vital Sign - Last 12Hours 09/15/17 09/15/17 09/15/17 09/15/17 01:25 01:30 01:50 01:50 Temp 96.9 96.9 Pulse 110 Resp 26 B/P (MAP) 219/124 (155) 219/124 Pulse Ox 86 94 O2 Delivery Room Air NIV Bilevel 09/15/17 09/15/17 09/15/17 09/15/17 02:04 02:05 02:07 02:08 Temp 96.9 96.9 B/P (MAP) 219/124 219/124 Capillary Refill : Progress Note : Progress Note Seen and evaluated. Patient in full extremities. IV, labs, chest x-ray and EKG ordered. Patient placed on BiPAP after initiation of high flow oxygen. Patient had O2 saturation in the upper 80s on high flow nasal cannula and this did improve with initiation of nonrebreather high flow. Placed on BiPAP with some improvement. Initial blood pressures 215/124. Repeat blood pressure similar. Morphine 2 mg IV, Ativan 0.5 mg IV, Lasix 80 mg IV and Zofran 4 mg IV given. Initiated nitroglycerin drip at 40 mcg/m to titrate to mouth of 110 and 120 (30 percent reduction). Chest x-ray shows pulmonary edema. Patient has white frothy sputum production. 0205: Blood sugar improved on BiPAP at 16/10 and 50 percent. Nitroglycerin drip running and blood pressure currently 174/ 94. Anticipate ICU admission. 0245: I have discussed the case with Dr. Kaylee Alvarez she accepts patient for admission, inpatient status to the ICU. She will consult cardiology in the morning and request eICU consult tonight which was placed. Nitro drip continuing and we have at low dose. We will keep map 90 -110 now as he is no longer in extremis. Tolerating BiPAP well. Patient and family agree with plan. Troponin is mildly elevated and I believe this is related to demand ischemia but we will continue to monitor. We will add blood cultures and lactic acid although I believe lactic gas will be elevated due to his hypoxia prior to arrival. I do not think he has pneumonia at this point and x-ray findings and elevated white count are related to pulmonary edema and respiratory failure. This was discussed with Dr. Alvarez and she agrees. We will hold on antibiotics but consider if fever occurs or changing condition occurs. ECG Initial ECG Impression Date: Sep 15, 2017 Initial ECG Impression Time: 01:37 Initial ECG Rate: 114 Initial ECG Rhythm: S.Tach Comment Sinus tachycardia with normal axis. No evidence of ST elevation [place]. Change from previous which was atrial fibrillation on previous visit. Interpreted by me. Diagnostic Imaging Diagonstic Imaging: Xray Plain Films/CT/US/NM/MRI: chest Comments Moderate bilateral pulmonary edema Departure Communication (Admissions) Time/Spoke to Admitting Phy: 02:42 Impression Impression: Primary Impression: Flash pulmonary edema Additional Impressions: Malignant hypertension Elevated troponin Disposition: ADMITTED INPATIENT Condition: Stable Admissions Decision to Admit Reason: Admit from ER (General) Decision to Admit/Date: Sep 15, 2017 Time/Decision to Admit Time: 02:42 Departure-Patient Inst. Referrals: REED MOFFETT (PCP/Family) Primary Care Physician MARIJA BOYER MD Sep 15, 2017 02:08
[2017-09-15] MEDS ORDERED: morphine INJ 10 MG/ML 1ML (SYR OR VIAL) IVP ONE (02:15)
[2017-09-15 02:18] LABS: ALBUMIN 3.9 GM/DL (3.2-4.5); BILIRUBIN,TOTAL 0.4 MG/DL (0.1-1.0); CALCIUM 8.9 MG/DL (8.5-10.1); CREATININE SERUM 1.31 MG/DL (0.60-1.30); MAGNESIUM 2.5 MG/DL (1.8-2.4); POTASSIUM 4.3 MMOL/L (3.6-5.0); TOTAL PROTEIN 7.6 GM/DL (6.4-8.2)
[2017-09-15 02:25] LABS: MYOGLOBIN SERUM 77.3 NG/ML (10.0-92.0)
--- OUTSIDE RECORDS SUMMARY | 2017-09-15 03:18 | XMS REPORT | Continuity of Care Document ---
Author Author [facility] Organization [facility] Address Unknown Phone Unavailable Allergies Active Description Code Type Severity Reaction Onset Reported/Identified Relationship to Patient Clinical Status Yes No Known Drug Allergies [id number] Drug Allergy Unknown N/A 02/07/2013 Medications There is no data. Problems Date Dx Coded Attending Type Code Diagnosis Diagnosed By 02/07/2013 TRIPP DAVID, REED T Ot 250.00 DIAB DION WO COMPL, TYPE II OR UNSPEC TY 02/07/2013 TRIPP DAVID, REED Molina Ot 305.1 TOBACCO USE DISORDER 02/07/2013 TRIPP DAVID, REED Molina Ot 355.9 MONONEURITIS NOS 02/07/2013 TRIPP DAVID, REED Molina Ot 401.9 HYPERTENSION NOS 02/07/2013 TRIPP DAVID, REED Molina Ot 553.1 UMBILICAL HERNIA 02/07/2013 TRIPP DAVID, REED Molina Ot 558.9 NONINF GASTROENTERIT NEC 02/07/2013 TRIPP DAVID, REED T Ot 564.00 UNSPEC CONSTIPATION 02/07/2013 TRIPP DAVID, REED T Ot 599.0 URIN TRACT INFECTION NOS 02/07/2013 TRIPP DAVID, REED T Ot 789.00 ABDOMINAL PAIN, UNSPECIFIED SITE 03/21/2013 250.60 DIABETES WITH NEUROLOGICAL MANIFESTATIONS TYPE [...] UNSPECIFIED TYPE NOT STATED UNCONTROLLED 03/21/2013 DOE DO, BRYANT K 401.1 HYPERTENSION, BENIGN ESSENTIAL 03/21/2013 [...] EXAMINATION AT A HEALTH CARE FACILITY 03/21/2013 BELINDA DOE DOA K 250.60 DIABETES WITH NEUROLOGICAL MANIFESTATIONS TYPE [...] UNSPECIFIED TYPE NOT STATED UNCONTROLLED 03/21/2013 DOE DO, BRYANT K 401.1 HYPERTENSION, BENIGN ESSENTIAL 03/21/2013 DOE DO, BRYANT K 553.1 UMBILICAL HERNIA WITHOUT OBSTRUCTION OR GANGRENE 03/21/2013 DOE DO, BRYANT K V11.3 PERSONAL HISTORY OF ALCOHOLISM 03/21/2013 DOE DO, BRYANT K V65.42 COUNSELING - SMOKING CESSATION 03/21/2013 DOE DO, BRYANT K V70.0 ROUTINE GENERAL MEDICAL EXAMINATION AT A HEALTH CARE FACILITY 03/21/2013 DOE DO, BRYANT K 250.60 DIABETES WITH NEUROLOGICAL MANIFESTATIONS TYPE II OR UNSPECIFIED TYPE NOT STATED UNCONTROLLED 03/21/2013 DOE DO, BRYANT K 401.1 HYPERTENSION, BENIGN ESSENTIAL 03/21/2013 DOE DO, BRYANT K 553.1 UMBILICAL HERNIA WITHOUT OBSTRUCTION OR GANGRENE 03/21/2013 DOE DO, BRYANT K V11.3 PERSONAL HISTORY OF ALCOHOLISM 03/21/2013 DOE DO, BRYANT K V65.42 COUNSELING - SMOKING CESSATION 03/21/2013 DOE DO, BRYANT K V70.0 ROUTINE GENERAL MEDICAL EXAMINATION AT A HEALTH CARE FACILITY 04/12/2013 BRADY DAVID, BRANDON Catherine Ot 789.00 ABDOMINAL PAIN, UNSPECIFIED SITE 04/25/2013 DOE DO, BRYANT K 553.21 HERNIA- VENTRAL/INCISION 04/25/2013 DOE DO, BRYANT K 553.21 HERNIA- VENTRAL/INCISION 04/25/2013 DOE DO, BRYANT K 553.21 HERNIA- VENTRAL/INCISION 04/25/2013 DOE DO, BRYANT K 553.21 HERNIA- VENTRAL/INCISION 04/25/2013 DOE DO, BRYANT K 553.21 HERNIA- VENTRAL/INCISION 04/25/2013 DOE DO, BRYANT K 553.21 HERNIA- VENTRAL/INCISION 05/13/2013 DOE DO, BRYANT K 789.00 ABDOMINAL PAIN UNSPECIFIED SITE 05/13/2013 DOE DO, BRYANT K 789.00 ABDOMINAL PAIN UNSPECIFIED SITE 05/13/2013 DOE DO, BRYANT K 789.00 ABDOMINAL PAIN UNSPECIFIED SITE 05/13/2013 DOE DO, BRYANT K 789.00 ABDOMINAL PAIN UNSPECIFIED SITE 05/13/2013 DOE DO, BRYANT K 789.00 ABDOMINAL PAIN UNSPECIFIED SITE 06/21/2013 EMILIANO DAVID, DEV Pierre Ot 250.00 DIAB DION WO COMPL, TYPE II OR UNSPEC TY 06/21/2013 EMILIANO DAVID, DEV Pirere Ot 553.20 VENTRAL HERNIA NOS 09/10/2017 OSEGUERA DO, MAURICIO Ot E11.22 TYPE 2 DIABETES MELLITUS W DIABETIC 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 09/10/2017 OSEGUERA DO, MAURICIO Ot E11.40 TYPE 2 DIABETES MELLITUS WITH DIABETIC N 09/10/2017 OSEGUERA DO, MAURICIO Ot E78.5 HYPERLIPIDEMIA, UNSPECIFIED 09/10/2017 OSEGUERA DO, MAURICIO Ot F17.210 NICOTINE DEPENDENCE, CIGARETTES, UNCOMPL 09/10/2017 OSEGUERA DO, MAURICIO Ot I13.0 HYP HRT CHR KDNY DIS W HRT FAIL AND ST 09/10/2017 OSEGUERA DO, MAURICIO Ot I21.4 NON-ST ELEVATION (NSTEMI) MYOCARDIAL INF 09/10/2017 OSEUGERA DO, MAURICIO Ot I50.9 HEART FAILURE, UNSPECIFIED 09/10/2017 OSEGUERA DO, MAURICIO Ot J44.1 CHRONIC OBSTRUCTIVE PULMONARY DISEASE W 09/10/2017 OSEGUERA DO, MAURICIO Ot J96.90 RESPIRATORY FAILURE, UNSP, UNSP W HYPOXI 09/10/2017 OSEGUERA DO, MAURICIO Ot N18.9 CHRONIC KIDNEY DISEASE, UNSPECIFIED 09/10/2017 OSEGUERA DO, MAURICIO Ot Z79.84 PRISON (CURRENT) USE OF ORAL HYPOGLYC 09/11/2017 OSEGUERA DO, MAURICIO Ot E11.22 TYPE 2 DIABETES MELLITUS W DIABETIC 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 09/11/2017 OSEGUERA DO, MAURICIO Ot E11.40 TYPE [...] UNSPECIFIED 09/11/2017 OSEGUERA DO, MAURICIO Ot Z79.84 WARP HAULER (CURRENT) USE OF ORAL HYPOGLYC 09/11/2017 OSEGUERA DO, MAURICIO Ot E11.22 TYPE 2 DIABETES MELLITUS W DIABETIC 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 09/11/2017 OSEGUERA DO, MAURICIO Ot E11.40 TYPE [...] UNSPECIFIED 09/11/2017 OSEGUERA DO, MAURICIO Ot Z79.84 WARP HAULER (CURRENT) USE OF ORAL HYPOGLYC 09/12/2017 OSEGUERA DO, MAURICIO Ot E11.22 TYPE 2 DIABETES MELLITUS W DIABETIC 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] J44.1 CHRONIC OBSTRUCTIVE PULMONARY DISEASE W 09/13/2017 GENI OSEGUERA DOI Ot J96.90 RESPIRATORY FAILURE, UNSP, UNSP W HYPOXI 09/13/2017 GENI OSEGUERA DOI Ot N18.9 CHRONIC KIDNEY DISEASE, UNSPECIFIED 09/13/2017 MAURICIO OSEGUERA DO Ot Z79.84 PRISON (CURRENT) USE OF ORAL HYPOGLYC 09/13/2017 GENI OSEGUERA DOI Ot E11.22 TYPE 2 DIABETES MELLITUS W DIABETIC 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 09/13/2017 GENI OSEGUERA DOI Ot E11.40 TYPE 2 DIABETES MELLITUS WITH DIABETIC N 09/13/2017 GENI OSEGUERA DOI Ot E11.65 TYPE 2 DIABETES MELLITUS WITH HYPERGLYCE 09/13/2017 GENI OSEGUERA DOI Ot E78.5 HYPERLIPIDEMIA, UNSPECIFIED 09/13/2017 GENI OSEGUERA DOI Ot F17.210 NICOTINE DEPENDENCE, CIGARETTES, UNCOMPL 09/13/2017 GENI OSEGUERA DOI Ot I13.0 HYP HRT CHR KDNY DIS W HRT FAIL AND ST 09/13/2017 GENI OSEGUERA DOI Ot I21.4 NON-ST ELEVATION (NSTEMI) MYOCARDIAL INF 09/13/2017 GENI OSEGUERA DOI Ot I25.10 ATHSCL HEART DISEASE OF [place] CORONARY 09/13/2017 GENI OSEGUERA DOI Ot 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 09/13/2017 ANA ROSA LOWE MAURICIO Ot I48.0 PAROXYSMAL ATRIAL FIBRILLATION 09/13/2017 GENI OSEGUERA DOI Ot I50.31 ACUTE DIASTOLIC (CONGESTIVE) HEART FAILU 09/13/2017 GENI OSEGUERA DOI Ot I50.9 HEART FAILURE, UNSPECIFIED 09/13/2017 GENI OSEGUERA DOI Ot J02.9 ACUTE PHARYNGITIS, UNSPECIFIED 09/13/2017 GENI OSEGUERA DOI Ot J11.1 FLU DUE TO UNIDENTIFIED INFLUENZA VIRUS 09/13/2017 MAURICIO OSEGUERA DO Ot J44.1 CHRONIC OBSTRUCTIVE PULMONARY DISEASE W 09/13/2017 GENI OSEGUERA DOI Ot J96.90 RESPIRATORY FAILURE, UNSP, UNSP W HYPOXI 09/13/2017 GENI OSEGUERA DOI Ot J98.11 ATELECTASIS 09/13/2017 GENI OSEGUERA DOI Ot N17.9 ACUTE KIDNEY FAILURE, UNSPECIFIED 09/13/2017 MAURICIO OSEGUERA DO Ot N18.9 CHRONIC KIDNEY DISEASE, UNSPECIFIED 09/13/2017 MAURICIO OSEGUERA DO Ot T38.0X5A ADVERSE EFFECT OF GLUCOCORT/SYNTH ANALOG 09/13/2017 MAURICIO OSEGUERA DO Ot Z79.84 WARP HAULER (CURRENT) USE OF ORAL HYPOGLYC 09/15/2017 EMILIANO DAVID, DEV Pierre Ot 789.09 ABDOMINAL PAIN, OTHER SPECIFIED SITE 09/15/2017 REED HILTON M Ot 789.02 ABDOMINAL PAIN, LEFT UPPER QUADRANT 09/15/2017 EMILIANO DAVID, DEV Pierre Ot 553.21 INCISIONAL HERNIA 09/15/2017 DEV CUMMINGS MD Ot V72.63 PRE-PROCEDURAL LABORATORY EXAMINATION 09/15/2017 DEV CUMMINGS MD Ot V72.81 [id number] CARDIOVASCULAR 09/15/2017 DEV CUMMINGS MD Ot V74.8 SCREEN-BACTERIAL DIS NEC Procedures Code Description [place] [address] ROUTINE VENIPUNCTURE 03/21/2013 37075 A1C (IN-HOUSE) 03/21/2013 68906 CBC 03/21/2013 34778 CMP 03/21/2013 7564691 GFR CALC (RESULT ONLY) 03/21/2013 83229 VIT B 12 03/21/2013 43524 FOLATE 03/21/2013 02820 TSH 03/21/2013 GENERAL S DEV CUMMINGS 03/21/[address] CHEST W/DYE 04/25/[address] ABDOMEN W/ CONTRAST 04/25/2013 96193 US ABDOMEN ULTRASOUND, LIMITED (SPECIFY ORGAN) 05/13/2013 91007 A1C (IN-HOUSE) 08/26/2013 2028F FOOT EXAM PERFORMED 08/26/2013 251152L DILATION OF 1 COR ART WITH DRUG-ELUT INT 09/12/2017 [id number] MEASURE OF CARDIAC SAMPL PRESSURE, L H 09/12/2017 [id number] FLUOROSCOPY OF MULT COR ART USING L [...] NRG Blood erythrocyte morphology finding identification NORMAL [facility] Comprehensive metabolic panel - 09/09/17 18:49 Serum [...] or plasma urea nitrogen/creatinine mass ratio 15 NR Serum or plasma creatinine measurement with calculation of estimated glomerular filtration rate 54 [facility] Serum or plasma glucose measurement (mass/volume) 325 [...] - 09/09/17 18:49 Bacterial blood culture NG NRG Bacterial blood culture - 09/09/17 19:05 QUANTITY OF GROWTH . [facility] Bacterial blood culture SEE COMMEN [facility] Sputum Gram stain - 09/09/17 19:55 GRAM STAIN SPUTUM AND MIXED BACTERIAL CRISTIAN [facility] Bacterial sputum culture - 09/09/17 19:55 FREE TEXT EXTERNAL ISOLATE WILL BE SENT TO [facility] REFERENCE [facility] QUANTITY OF GROWTH Abundant Growth [facility] FREE TEXT ENTRY 2 LAB FOR SENSITIVITY TESTING ON 09/13/17 [facility] FREE TEXT ENTRY 3 PLUS NORMAL CRISTIAN [facility] Bacterial sputum culture [id number] [facility] Influenza virus A and B antigen detection - 09/09/17 20:18 CALL POSITIVES (F1 HELP) ED [facility] FLU RESULT POSITIVE FOR INFLUENZA B ANTIGEN, NEG FOR A ANTIGEN, BY IA [facility] Urine drug screening test - [...] resistant Staphylococcus aureus (MRSA) screening culture NEG [facility] Serum or plasma troponin i.cardiac measurement (mass/volume) [...] Status Pt. Type Provider Facility Loc./Unit Complaint [id number] 09/09/2017 20:12:00 09/13/2017 14:40:00 DIS Inpatient MAURICIO OSEGUERA DO [facility] ICU NSTEMI;CHF;HTN;NIDDM; ACUTE RESPIRATORY FAILURE [id number] 06/21/2013 11:02:00 06/21/2013 17:10:00 DIS Outpatient DEV CUMMINGS MD [facility] SDC VENTRAL HERNIA [id number] 06/16/2013 09:12:00 06/16/2013 23:59:59 CLS Outpatient DEV CUMMINGS MD [facility] PREOP VENTRAL HERNIA [id number] 05/18/2013 08:00:00 05/18/2013 23:59:59 CLS Outpatient REED HILTON [facility] RAD LUQ PAIN AND SWELLING [id number] 04/27/2013 08:49:00 04/27/2013 23:59:59 CLS Outpatient DEV CUMMINGS MD [facility] RAD RT FLANK PAIN [id number] 04/12/2013 13:20:00 04/12/2013 16:07:00 DIS Emergency BRADY DAVID, BRANDON R [facility] ER ABD PAIN [id number] 02/07/2013 08:57:00 02/07/2013 13:27:00 DIS Emergency TRIPP DAVID, REED Molina [facility] ER ABD PAIN [id number] 09/15/2017 02:50:00 ACT Inpatient RANDALL LYNCH MD [facility] ICU FLASH PULMONARY EDEMA,MAGLIGNANT HTN, ELEVATED [id number] 08/26/2013 09:37:00 08/26/2013 23:59:59 CLS Outpatient BRYANT DOE DO [id number] 08/26/2013 09:37:00 08/26/2013 23:59:59 CLS Outpatient BRYANT DOE DO [id number] 06/20/2013 13:28:00 06/20/2013 23:59:59 [facility] Outpatient BRYANT DOE DO [id number] 05/13/2013 09:36:00 05/13/2013 23:59:59 CLS Outpatient BRYANT DOE DO [id number] 04/25/2013 15:41:00 04/25/2013 23:59:59 [facility] Outpatient BRYANT DOE DO [id number] 04/25/2013 00:00:00 04/25/2013 23:59:59 CLS Outpatient BRYANT DOE DO [id number] 03/21/2013 13:47:00 Document Registration
[2017-09-15] MEDS ORDERED: RT-ALBUTEROL/IPRATROPIUM 3 ML (DUONEB) VIAL INH PRN (04:00)
[2017-09-15] MEDS ORDERED: NS IV 1000 ML 1,000 ML ONE (05:13)
[2017-09-15] MEDS ORDERED: morphine INJ 4 MG/ML 1 ML (VIAL/SYRINGE) IV PRN (05:30)
[2017-09-15] MEDS ORDERED: NITROGLYCERIN 0.4 MG SL TABS BTL 25'S SL PRN (05:30)
[2017-09-15] MEDS ORDERED: NS IV 1000 ML 1,000 ML IV SCH (05:30)
[2017-09-15] MEDS: inSUlin (REGULAR) HUMAN 1 UNIT/0.01 ML (CHARGE PER UNIT) SC SCH ×4 (05:36→23:57)
[2017-09-15] MEDS: NITROGLYCERIN DRIP 25 MG/250 ML D5W (PRE-MIX) IV SCH (05:45)
[2017-09-15] MEDS: RT-ALBUTEROL/IPRATROPIUM 3 ML (DUONEB) VIAL INH SCH ×5 (06:51→21:15)
[2017-09-15] MEDS ORDERED: FUROSEMIDE 40 MG/4 ML INJ (LASIX) IV SCH (07:00)
[2017-09-15] MEDS ORDERED: INFLUENZA TRIvalent 2017-2018 0.5 ML/45 MCG SYR IM ONE (07:30)
--- NOTE | 2017-09-15 08:00 | Diagnostic Imaging Report ---
INDICATION: Respiratory problems. The right lung base does seem much better aerated than on the prior exam. There is still some residual atelectasis/infiltrate in the medial aspect of the right lower lobe however. The heart is enlarged although the heart is less prominent than on the previous study. Conversely, the interstitial densities in both lungs are slightly more striking than on the prior exam. There is a small amount of fluid in the right lung base as well. The mediastinum is not widened. The osseous structures are intact. IMPRESSION: There are mixed results. The right lung base does seem much better aerated but the slight prominence of the interstitial densities in both lungs when compared with the prior study suggests that there is somewhat greater pulmonary congestion than on the prior study. A followup exam would be recommended for continued evaluation. Dictated by: Dictated on workstation # [id number]
[2017-09-15 08:40] LABS: BASOPHILS % (AUTO) 0 % (0-10); EOSINOPHILS # (AUTO) 0.1 10^3/uL (0.0-0.3); EOSINOPHILS % (AUTO) 1 % (0-10); HEMATOCRIT 40 % (40-54); HEMOGLOBIN 13.3 G/DL (13.3-17.7); LYMPHOCYTES # (AUTO) 1.9 X 10^3 (1.0-4.0); LYMPHOCYTES % (AUTO) 17 % (12-44); MEAN CORPUSCULAR HEMOGLOBIN 30 PG (25-34); MEAN CORPUSCULAR HGB CONC 33 G/DL (32-36); MEAN CORPUSCULAR VOLUME 91 FL (80-99); MEAN PLATELET VOLUME 10.2 FL (7.4-10.4); MONOCYTES % (AUTO) 9 % (0-12); NEUTROPHILS % (AUTO) 73 % (42-75); PLATELET COUNT 255 10^3/uL (130-400); RED BLOOD COUNT 4.45 10^6/uL (4.35-5.85); RED CELL DISTRIBUTION WIDTH 14.2 % (10.0-14.5)
[2017-09-15 08:59] LABS: ALBUMIN 3.3 GM/DL (3.2-4.5); BILIRUBIN,TOTAL 0.4 MG/DL (0.1-1.0); CALCIUM 8.3 MG/DL (8.5-10.1); CREATININE SERUM 1.28 MG/DL (0.60-1.30); POTASSIUM 4.2 MMOL/L (3.6-5.0); TOTAL PROTEIN 6.3 GM/DL (6.4-8.2)
[2017-09-15] MEDS ORDERED: ASPIRIN E.C. 325 MG (ECOTRIN) TABLET PO SCH (09:00)
[2017-09-15 09:05] LABS: MYOGLOBIN SERUM 86.9 NG/ML (10.0-92.0)
[2017-09-15 09:08] LABS: CARDIAC PROFILE 2 0.61 NG/ML (<0.30)
[2017-09-15] MEDS ORDERED: FUROSEMIDE 40 MG/4 ML INJ (LASIX) IVP NR (12:10)
[2017-09-15] MEDS ORDERED: amLODIPine 5 MG (NORVASC) TAB PO ONE (12:15)
[2017-09-15] MEDS ORDERED: meTOprolol TARTRATE 50 MG (LOPRESSOR) TAB PO ONE (12:15)
[2017-09-15] MEDS ORDERED: RIVAROXABAN 15 MG TABLET (XARELTO) PO ONE (12:15)
[2017-09-15] MEDS ORDERED: CLOPIDOGREL 75 MG (PLAVIX) TABLET PO ONE (12:15)
--- NOTE | 2017-09-15 12:46 | Consultation-Cardiology ---
HPI-Cardiology Cardiology Consultation: Date of Consultation 09/15/17 Date of Admission Attending Physician Kaylee Alvarez MD Admitting Physician Kevin Gee Consulting Physician Ignacio FLORENTINO MD HPI: Time Seen by Provider: 10:00 Chief Complaint: shortness of breath this is a 61-year-old gentleman who I saw recently as an in-hospital consultation when he presented with hypoxia secondary to acute influenza. He also has history of diabetes, active smoking, paroxysmal atrial fibrillation, non-ST elevation VA status post drug-eluting stent to the ostial LAD during his recent hospitalization, acute kidney injury. He was discharged a few days ago. 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 His blood pressure was severely elevated. The patient denied any chest pain. No syncope near syncope or palpitations. His systolic blood pressure was over 200 mmHg in the ER and he was started on nitroglycerin infusion. He was admitted to the ICU. His shortness of breath is improved on my evaluation. He again denies any chest pain. Review of Systems-Cardiology Review of Systems Constitutional: No As described under HPI, No no symptoms reported, No chills, No fever, No lightheadedness, No malaise, No tiredness, No weight loss, No weight gain, No other Eyes: No As described under HPI, No no symptoms reported, No blindness, No blurred vision, No contact lenses, No drainage, No decreased acuity, No foreign body sensation, No glasses, No inflammation, No pain, No photophobia, No previous injury, No shadows, No tunnel vision, No other, No vision change Ears/Nose/Throat: No As described under HPI, No no symptoms reported, No chronic hearing loss, No epistaxis, No ear discharge, No ear pain, No loose teeth, No mouth pain, No mouth swelling, No nasal drainage, No nose pain, No recent hearing loss, No throat pain, No throat swelling, No ulcerations, No other Respiratory: No no symptoms reported, No As described under HPI, No cough, orthopnea, shortness of breath, No SOB with excertion, No SOB at rest, No stridor, No wheezing, No other Cardiovascular: No no symptoms reported, No As described under HPI, No chest pain, No edema, No irregular heart rate, No lightheadedness, No palpitations, No syncope, No other Gastrointestinal: No no symptoms reported, No As described under HPI, No abdomen distended, No abdominal pain, No blood streaked bowels, No constipation , No diarrhea, No difficulty swallowing, No nausea, No poor appetite, No poor fluid intake, No rectal bleeding, No vomiting, No other, No nausea/vomiting/ diarrhea, No stool coloration changes Genitourinary: No no symptoms reported, No As described under HPI, No burning, No dysuria, No discharge, No frequency, No flank pain, No hematuria, No incontinence, No pain, No urgency, No other, No urine frequency changes, No urine coloration changes Musculoskeletal: No no symptoms reported, No As describe under HPI, No back pain, No gout, No joint pain, No joint swelling, No muscle pain, No muscle stiffness, No neck pain, No other Skin: No no symptoms reported, No As described under HPI, No change in color, No change in hair/nails, No dryness, No lesions, No lumps, No rash, No other, No skin related problems, No ulcerations, No rash on exposed areas, No ulcerations on exposed areas Psychiatric/Neurological: No no symptoms reported, No As described under HPI, No anxiety, No depression, No emotional problems, No headache, No numbness, No pre-existing deficit, No seizure, No tingling, No tremors, No weakness, No other , No focal weakness, No syncope Hematologic: No no symptoms reported, No As described under HPI, No anemia, No blood clots, No easy bleeding, No easy bruising, No swollen glands, No other, No bleeding abnormalities All Other Systems Reviewed Negative Unless Noted: Yes HMV-Poxitx-Ljhidd Hx Patient Social History Alcohol Use: Denies Use Recreational Drug Use: Yes Drug of Choice: OCCASIONAL MARIJUANA USE Smoking Status: Current Everyday Smoker Type Used: Cigarettes, Electronic/Vapor Recent Foreign Travel: No Recent Infectious Disease Expo: No Hospitalization with Isolation: Denies Physical Abuse Screen: No Sexual Abuse: No Immunizations Up To Date Tetanus Booster (TDap): Unknown Date of Pneumonia Vaccine: Sep 09, 2014 Past Medical History PMH As described under Assessment. Family Medical History Family History: Diabetes mellitus 19 MOTHER G8 SISTER FH: lymphoma 19 FATHER Allergies and Home Medications Allergies Coded Allergies: No Known Drug Allergies (Unverified , 02/07/13) Home Medications Amlodipine Besylate 5 Mg Tablet, 5 MG PO DAILY, (Reported) LAST FILLED #30 04-02-17 Aspirin 81 Mg Tab.chew, 81 MG PO DAILY for 30 Days, #30 Ref 3 Prescribed by: Ignacio FLORENTINO on 09/13/17 1302 Atorvastatin Calcium 40 Mg Tablet, 40 MG PO HS for 90 Days, #90 Ref 3 Prescribed by: Ignacio FLORENTINO on 09/13/17 1302 Cefdinir 300 Mg Capsule, 300 MG PO BID, #14 Prescribed by: MAURICIO OSEGUERA on 09/13/17 1239 Clopidogrel Bisulfate 75 Mg Tablet, 75 MG PO DAILY for 90 Days, #90 Ref 3 Prescribed by: Ignacio FLORENTINO on 09/13/17 1302 Gabapentin 300 Mg Capsule, 600 MG PO TID, #30 Prescribed by: MAURICIO OSEGUERA on 09/13/17 1232 Glyburide 2.5 Mg Tablet, 2.5 MG PO DAILY, #10 Prescribed by: MAURICIO OSEGUERA on 09/13/17 1232 Lisinopril 20 Mg Tablet, 20 MG PO DAILY for 90 Days, #90 Ref 3 Prescribed by: Ignacio FLORENTINO on 09/13/17 1302 Metformin HCl 500 Mg Tablet, 500 MG PO BID, #20 Prescribed by: MAURICIO OSEGUERA on 09/13/17 1232 Metoprolol Tartrate 50 Mg Tablet, 50 MG PO BID for 90 Days, #180 Ref 3 Prescribed by: Ignaico FLORENTINO on 09/13/17 1302 Oseltamivir Phosphate 30 Mg Capsule, 0 EACH PO BID for 2 Days Prescribed by: MAURICIO OSEGUERA on 09/13/17 1232 Prednisone 10 Mg Tab.ds.pk, 10 MG PO DAILY, #3 Prescribed by: MAURICIO OSEGUERA on 09/13/17 1232 Rivaroxaban 15 Mg Tablet, 15 MG PO DAILY for 30 Days, #30 Ref 4 Prescribed by: Ignacio FLORENTINO on 09/13/17 1302 Physical Exam-Cardiology Physical Exam Vital Signs/I&O Vital Sign - Last 12Hours 09/15/17 09/15/17 09/15/17 09/15/17 01:25 01:30 01:50 01:50 Temp 96.9 96.9 Pulse 110 Resp 26 B/P (MAP) 219/124 (155) 219/124 Pulse Ox 86 94 O2 Delivery Room Air NIV Bilevel 09/15/17 09/15/17 09/15/17 09/15/17 01:55 02:04 02:05 02:07 Temp 96.9 96.9 Pulse 101 Resp 26 B/P (MAP) 219/124 Pulse Ox 100 O2 Flow Rate 100.00 09/15/17 09/15/17 09/15/17 09/15/17 02:08 03:35 03:40 03:40 Temp 96.9 Pulse 83 83 Resp 27 B/P (MAP) 219/124 128/76 (93) Pulse Ox 92 99 O2 Delivery NIV Bilevel NIV Bilevel O2 Flow Rate 30.00 30.00 09/15/17 09/15/17 09/15/17 09/15/17 03:42 03:45 03:45 03:55 Pulse 81 83 84 81 Resp 17 14 B/P (MAP) 128/76 110/75 (87) Pulse Ox 99 95 99 O2 Delivery NIV/Bilevel NIV Bilevel O2 Flow Rate 50.00 30.00 30.00 FiO2 50 09/15/17 09/15/1709/15/09/15/17 04:00 04:04 04:15 04:30 Temp 96.5 Pulse 85 90 84 84 Resp 14 18 12 13 B/P (MAP) 119/74 (89) 108/69 (82) 111/67 (82) Pulse Ox 94 95 92 93 O2 Delivery NIV Bilevel NIV Bilevel NIV Bilevel NIV Bilevel O2 Flow Rate 30.00 30.00 30.00 09/15/17 09/15/1709/15/09/15/17 04:45 05:00 05:15 05:30 Pulse 75 78 96 70 Resp 12 14 15 14 B/P (MAP) 114/64 (81) 110/63 (79) 155/85 (108) 113/72 (86) Pulse Ox 94 94 97 97 O2 Delivery NIV Bilevel NIV Bilevel NIV Bilevel NIV Bilevel O2 Flow Rate 30.00 30.00 30.00 30.00 18 09/15/18 09/15/18 18 05:45 06:00 06:15 06:30 Pulse 77 78 75 73 Resp 12 11 14 14 B/P (MAP) 129/65 (86) 128/65 (86) 114/64 (81) 114/61 (78) Pulse Ox 97 99 99 97 O2 Delivery NIV Bilevel NIV Bilevel NIV Bilevel NIV Bilevel O2 Flow Rate 30.00 30.00 30.00 30.00 09/15/17 09/15/17 09/15/17 09/15/17 06:45 06:52 07:00 07:00 Pulse 70 75 73 72 Resp 14 14 13 B/P (MAP) 119/67 (84) 126/80 (95) Pulse Ox 97 98 99 O2 Delivery NIV Bilevel NIV Bilevel O2 Flow Rate 30.00 30.00 30.00 09/15/17 09/15/17 09/15/17 09/15/17 07:48 07:50 08:00 08:43 Temp 98.7 Pulse 73 75 77 Resp 12 13 16 B/P (MAP) 126/80 (95) 113/68 (83) Pulse Ox 99 97 98 O2 Delivery NIV Bilevel NIV Bilevel NIV Bilevel O2 Flow Rate 30.00 30.00 30.00 30.00 09/15/17 09/15/17 09/15/17 09/15/17 08:47 08:54 09:00 10:00 Pulse 77 91 Resp 12 23 B/P (MAP) 133/66 (88) 143/82 (102) Pulse Ox 98 97 96 96 O2 Delivery Nasal Cannula Nasal Cannula Nasal Cannula Nasal Cannula O2 Flow Rate 2.00 3.00 3.00 3.00 Capillary Refill : Less Than 3 Seconds Constitutional: appears stated age, AAO x 3, PERRL, well-developed HEENT: PERRL, No discharge, hearing is well preserved, oral hygience is good, No ulceration, No xanthelasmas are seen Neck: No non-tender, No full range of motion, No supple, No normal inspection, No carotid bruit, No limited range of motion, No lymphadenopathy (R), No lymphadenopathy (L), No tender lateral, No tender midline, No thyromegaly, No other, No carotid pulses are 2 + bilaterally, No with good upstrokes Respiratory: chest is bilaterally symmetric, lungs clear to percussion, lungs clear to auscultation Cardiovascular: regular rate-rhythm, No irregularly irregular, No extra beats, No parasternal heave is noted, No JVD, No edema, No bradycardia, No tachycardia , No point of maximal impulse, No cardiac thrills are palpable, S1 and S2, No gallop/S3, No gallop/S4, No diastolic murmur, No systolic murmur, No friction rub, No click, No other Gastrointestinal: No tender, No soft, No round, No distended, No pulsatile mass , No organomegaly, No guarding, No rebound, No tenderness, No hernia, No mass, No audible bowel sounds, No abnormal bowel sounds, No abdominal bruits, No spleenomegaly, No other Rectal: deferred Extremities: No normal range of motion, No non-tender, No normal inspection, No pedal edema, No calf tenderness, No normal capillary refill, No pelvis stable , No calf tenderness, No inflammation, No pedal edema, No slow capillary refill , No swelling, No other, No abrasion, No clubbing, No cyanosis, No ecchymosis, No laceration, No no lower extremity edema bilateral, No significant edema, No tenderness, No wound Neurologic/Psychiatric: No ballistic technician II-XII nml as tested, No no motor/sensory deficits, alert, normal mood/affect, oriented x 3, No abnormal cerebellar tests , No abnormal ballistic technician II-XII, No abnormal gait, No aphasia, No EOM palsy, No facial droop, No motor weakness, No sensory deficit, No depressed affect, No disoriented x 3, No other, No grossly intact, No power is 5/5 both on sides Skin: No normal color, No warm/dry, No cyanosis, No cool, No diaphoresis, No damp, No ecchymosis, No jaundice, No mottled, No pallor, No rash, No tattoos/ piercings, No ulcerations, No rash on exposed areas, No ulcerations on exposed areas, No other Data Review Labs Laboratory Tests 09/15/17 01:38: White Blood Count 20.3H, Red Blood Count 4.92, Hemoglobin 14.7, Hematocrit 45, Mean Corpuscular Volume 91, Mean Corpuscular Hemoglobin 30, Mean Corpuscular Hemoglobin Concent 33, Red Cell Distribution Width 14.4, Platelet Count 330, Mean Platelet Volume 10.2, Neutrophils (%) (Auto) 65, Lymphocytes (%) (Auto) 25 , Monocytes (%) (Auto) 10, Eosinophils (%) (Auto) 1, Basophils (%) (Auto) 0, Neutrophils # (Auto) 13.1H, Lymphocytes # (Auto) 5.0H, Monocytes # (Auto) 2.0H, Eosinophils # (Auto) 0.1, Basophils # (Auto) 0.1, Neutrophils % (Manual) 62, Lymphocytes % (Manual) 25, Monocytes % (Manual) 7, Eosinophils % (Manual) 2, Basophils % (Manual) 0, Band Neutrophils 0, Reactive Lymphocytes 4, Toxic Granulation 1+, Prothrombin Time 12.6, INR Comment 0.9, Activated Partial Thromboplast Time 23L, Sodium Level 135, Potassium Level 4.3, Chloride Level 101 , Carbon Dioxide Level 22, Anion Gap 12, Blood Urea Nitrogen 37H, Creatinine 1.31H, Estimat Glomerular Filtration Rate 55, BUN/Creatinine Ratio 28, Glucose Level 340H, Calcium Level 8.9, Magnesium Level 2.5H, Total Bilirubin 0.4, Aspartate Amino Transf (AST/SGOT) 25, Alanine Aminotransferase (ALT/SGPT) 34, Alkaline Phosphatase 87, Myoglobin 77.3, Troponin I 0.40*H, B-Type Natriuretic Peptide 958.4H, Total Protein 7.6, Albumin 3.9 09/15/17 02:47: Lactic Acid Level 1.65 09/15/17 05:30: Glucometer 354H 09/15/17 08:33: White Blood Count 11.0, Red Blood Count 4.45, Hemoglobin 13.3, Hematocrit 40, Mean Corpuscular Volume 91, Mean Corpuscular Hemoglobin 30, Mean Corpuscular Hemoglobin Concent 33, Red Cell Distribution Width 14.2, Platelet Count 255, Mean Platelet Volume 10.2, Neutrophils (%) (Auto) 73, Lymphocytes (%) (Auto) 17 , Monocytes (%) (Auto) 9, Eosinophils (%) (Auto) 1, Basophils (%) (Auto) 0, Neutrophils # (Auto) 8.0H, Lymphocytes # (Auto) 1.9, Monocytes # (Auto) 1.0, Eosinophils # (Auto) 0.1, Basophils # (Auto) 0.0, Sodium Level 135, Potassium Level 4.2, Chloride Level 101, Carbon Dioxide Level 24, Anion Gap 10, Blood Urea Nitrogen 37H, Creatinine 1.28, Estimat Glomerular Filtration Rate 57, BUN/ Creatinine Ratio 29, Glucose Level 296H, Calcium Level 8.3L, Total Bilirubin 0.4 , Aspartate Amino Transf (AST/SGOT) 17, Alanine Aminotransferase (ALT/SGPT) 27, Alkaline Phosphatase 69, Myoglobin 86.9, Troponin I 0.61*H, Total Protein 6.3L, Albumin 3.3 ECG Impression ECG Initial ECG Rhythm: Normal Sinus Initial ECG Impression: Nonspecific Changes A/P-Cardiology Assessment/Admission Diagnosis acute diastolic congestive heart failure, Severe respiratory distress, Leukocytosis, Non-ST elevation VA, Acute kidney injury, Diabetes, Active smoking, severe Hypertension Plan critical care patient; I spent over 60 minutes taking of the patient including discussing the plan with the primary team and the RN. acute diastolic congestive heart failure: Elevated BNP. Pulmonary edema on chest x-ray. High dose IV Lasix. fluid restriction, salt restriction. Further education. Non-ST elevation VA: Troponin 0.40 on admission, 0.6 this morning. Increasing troponin is concerning. He will very likely require coronary angiography on . However I do not believe it is stent thrombosis since the presentation would have been acute STEMI. Patient was compliant with dual antiplatelet therapy. Continue aspirin, Plavix, Lipitor, beta claribel. Severe hypertension: Responded to nitroglycerin infusion. Restart amlodipine, metoprolol. Hold lisinopril for now. We'll request bilateral renal ultrasound to rule out renal artery stenosis since the patient has severe hypertension, pulmonary edema, acute kidney injury. Paroxysmal atrial fibrillation: Currently in sinus rhythm. Continue beta claribel and Xarelto. Acute kidney injury: Continue to follow. Rule out renal artery stenosis. Leukocytosis: Blood cultures pending. Spoke with Dr. Mehta. If blood cultures negative 24 hours then okay with coronary angiography. Thank you for your consultation. Please call me if you have any questions. Araceli Florentino MD, FACP, FACC, FSCAI, FHRS, CCDS Interventional Cardiology Cardiac Electrophysiology Vascular Medicine and Endovascular Interventions Clinical Quality Measures DVT/VTE Risk/Contraindication: Risk Factor Score Per Nursin RFS Level Per Nursing on Admit: 4+=Very High Ignacio FLORENTINO MD Sep 15, 2017 12:46 pm
--- NOTE | 2017-09-15 13:17 | History & Physical-Hospitalist ---
HPI History of Present Illness: HPI/Chief Complaint Pt is a 61yoCM with a recent admission for NSTEMI and influenza who presented to the ER last night for acute onset SOB. He was discharged from here on 09/13 and it is unclear whether he was able to receive his medications (he states he received 1 pill of some medications) because he could not fill them at [facility] pharmacy because they were not prescribed by a [facility] provider. He developed worsening shortness of breath yesterday which prompted him to seek evaluation in the ER. On arrival he was found to be in severe respiratory distress and placed on BiPAP. CXR revealed pulmonary edema and his BP was 219/124. He was placed on a Nitro gtt and give Lasix. This morning he reports feeling better and was on NC. He denies any cough, sputum, or fever. Source: patient, family Date Seen 09/15/17 Time Seen by Provider: 12:00 Attending Physician Kaylee Alvarez MD PCP Kevin Gee Referring Physician Date of Admission Sep 15, 2017 at 2:50 am Home Medications & Allergies Home Medications Reviewed patient Home Medication Reconciliation Form Allergies Allergies Coded Allergies No Known Drug Allergies (Unverified02/07/13) Past Xorupou-Vjhhky-Bkqpjl Hx Patient Social History Alcohol Use: Denies Use Recreational Drug Use: Yes Drug of Choice: OCCASIONAL MARIJUANA USE Smoking Status: Current Everyday Smoker Type Used: Cigarettes, Electronic/Vapor Physical Abuse Screen: No Sexual Abuse: No Recent Foreign Travel: No Contact w/other who traveled: No Recent Hopitalizations: Yes (D/C FROM THIS FACILITY ON 09/13/17) Recent Infectious Disease Expo: No Immunizations Up To Date Tetanus Booster (TDap): Unknown Pediatric: No Date of Pneumonia Vaccine: Sep 09, 2014 Seasonal Allergies Seasonal Allergies: No Surgeries Yes (HERNIA REPAIR) Respiratory Yes (HX OF CHF-RESP DISTRESS) Currently Using CPAP: No Currently Using BIPAP: No Cardiovascular Yes ("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SD") Heart Attack (NSTEMI 09/2017), High Cholesterol, Hypertension Neurological Yes (NEUROPATHY IN FEET) Neuropathy Reproductive System Hx Reproductive Disorders: No Sexually Transmitted Disease: No HIV/AIDS: No Genitourinary Yes Renal Failure Gastrointestinal Yes (VENTRAL HERNIA) Pancreatitis Musculoskeletal No Endocrine History of Endocrine Disorders: Yes Endocrine Disorders: Diabetes, Non-Insulin dep HEENT History of HEENT Disorders: No Cancer No Psychosocial History of Psychiatric Problem: Yes Behavioral Health Disorders: Anxiety, Depression Integumentary History of Skin or Integumenta: No Blood Transfusions History of Blood Disorders: No Adverse Reaction to a Blood Tr: No Reviewed Nursing Assessment Reviewed/Agree w Nursing PMH: Yes Family Medical History Family Hx: Diabetes mellitus 19 MOTHER G8 SISTER FH: lymphoma 19 FATHER Review of Systems Constitutional: No chills, No fever EENTM: No blurred vision, No double vision, No nose congestion, No throat pain Respiratory: see HPI, No cough, No phlegm, short of breath Cardiovascular: No chest pain, No edema, No palpitations Gastrointestinal: No abdominal pain, No constipation, No diarrhea, No nausea, No vomiting Genitourinary: No dysuria, No frequency Musculoskeletal: No joint pain, No muscle pain Skin: No lesions, No rash Psychiatric/Neurological: Denies Headache, Denies Numbness, Denies Tingling Physical Exam Physical Exam Vital Signs Vital Signs - First Documented 09/15/17 09/15/17 09/15/17 01:25 01:55 03:55 Temp 96.9 Pulse 110 Resp 26 B/P (MAP) 219/124 (155) Pulse Ox 86 O2 Delivery Room Air O2 Flow Rate 100.00 FiO2 50 Capillary Refill : Less Than 3 Seconds General Appearance: No Apparent Distress, WD/WN HEENT: PERRL/EOMI, Moist Mucous Membranes Neck: Non Tender, Supple Respiratory: No Respiratory Distress, Crackles Cardiovascular: Regular Rate, Rhythm, No Murmur Gastrointestinal: Normal Bowel Sounds, Non Tender, Soft Extremity: Normal Capillary Refill, No Calf Tenderness Neurologic/Psychiatric: Alert, Oriented x3, Normal Mood/Affect Skin: Normal Color, Warm/Dry Results Results/Procedures Lab Laboratory Tests 09/15/17 01:38 09/15/17 08:33 Assessment/Plan Admission Diagnosis acute respiratory distress Diagnosis/Problems Diagnosis/Problems (1) Acute respiratory distress Assessment & Plan: Due to flash pulmonary edema Off BiPAP this am Pulm consulted appreciate recs Continue Lasix (2) Hypertensive emergency Assessment & Plan: Likely cause of pulm edema Will try to transition off nitro gtt Will get renal usg to evaluate for KAYLYNN (3) Elevated troponin Status: Acute Assessment & Plan: Rising Cardiology consulted, appreciate recs Plan for cath (4) Leukocytosis Assessment & Plan: Likely reactive, resolved today Blood cultures drawn in ER, pending (5) CAD (coronary artery disease) Assessment & Plan: Recent NSTEMI with stent placement Concern for stent thrombosis given rising troponin Plan for cath Continue ASA, plavix and statin Qualifiers: Qualified Codes: I25.10 - Atherosclerotic heart disease of [place] coronary artery without angina pectoris (6) Non-insulin dependent type 2 diabetes mellitus Assessment & Plan: On metformin and glyburide as outpatient Resume glyburide but hold metformin for planned cath SSI (7) Prophylactic measure Assessment & Plan: Xarelto Saline lock Low Na diet (8) Discharge planning issues Assessment & Plan: Has no insurance but reports medications were filled at [facility] pharmacy despite not having seen them Called pharmacy and he has 30 day rx for metoprolol, Plavix, Lipitor, lisinopril waiting for him with 10d supply of Metformin and glyburide and 5 day supply of gabapentin Will discussed with [facility] providers to see if valid prescriptions Clinical Quality Measures DVT/VTE Risk/Contraindication: Risk Factor Score Per Nursin RFS Level Per Nursing on Admit: 4+=Very High COCO LAZO MD Sep 15, 2017 1:17 pm
--- NOTE | 2017-09-15 14:55 | Diagnostic Imaging Report ---
EXAMINATION: Abdominal ultrasound. INDICATION: Hypertension. TECHNIQUE: Spectral and color flow imaging of the aorta and the renal arteries was performed. FINDINGS: There are no previous abdominal Doppler examinations available for comparison. The CT abdomen/pelvis exam of 04/12/2013 failed to show any sign of a solid renal mass or for an acute abnormality of either kidney. There were small nonobstructive calculi in both kidneys. For this exam, both kidneys were identified. The right kidney measures 11.5 x 6.6 x 5.7 cm while the left kidney is estimated to be 11.7 x 6.8 x 4.6 cm. There is no evidence for a solid renal mass or for hydronephrosis of either kidney. The renal cortices are normal in thickness and echogenicity. There is no shadowing from the kidneys to correspond to the 2 mm calculi seen on the previous CT exam. The aorta was visualized and was generally unremarkable. However, the renal arteries were obscured by bowel gas. Only the distal-most portions of each renal artery was noted. The bladder was not included on this exam. IMPRESSION: 1. There is no evidence for a solid renal mass or for an acute abnormality of either kidney. 2. The renal arteries were not well visualized due to overlying bowel gas. If further evaluation of the renal arteries for hemodynamically significant stenosis is desired, then either CTA or MRA of the aorta and renal arteries would be recommended. Dictated by: Dictated on workstation # [id number]
[2017-09-15] MEDS: meTOprolol TARTRATE 50 MG (LOPRESSOR) TAB PO SCH (20:24)
[2017-09-15] MEDS: ATORVASTATIN 40 MG (LIPITOR) TABLET PO SCH (20:24)
[2017-09-15] MEDS: GABAPENTIN 600 MG (NEURONTIN) TAB PO SCH (20:24)
[2017-09-16] VITALS (28 sets, daily range): BP systolic 83–140; BP diastolic 48–99
[2017-09-16] MEDS: RT-ALBUTEROL/IPRATROPIUM 3 ML (DUONEB) VIAL INH SCH ×6 (02:00→22:30)
[2017-09-16] MEDS: NITROGLYCERIN DRIP 25 MG/250 ML D5W (PRE-MIX) IV SCH (05:29)
[2017-09-16 05:55] LABS: BASOPHILS % (AUTO) 0 % (0-10); EOSINOPHILS # (AUTO) 0.2 10^3/uL (0.0-0.3); EOSINOPHILS % (AUTO) 2 % (0-10); HEMATOCRIT 42 % (40-54); HEMOGLOBIN 14.1 G/DL (13.3-17.7); LYMPHOCYTES # (AUTO) 2.6 X 10^3 (1.0-4.0); LYMPHOCYTES % (AUTO) 20 % (12-44); MEAN CORPUSCULAR HEMOGLOBIN 30 PG (25-34); MEAN CORPUSCULAR HGB CONC 34 G/DL (32-36); MEAN CORPUSCULAR VOLUME 89 FL (80-99); MEAN PLATELET VOLUME 10.4 FL (7.4-10.4); MONOCYTES # (AUTO) 0.9 X 10^3 (0.0-1.0); MONOCYTES % (AUTO) 7 % (0-12); NEUTROPHILS # (AUTO) 9.1 X 10^3 (1.8-7.8); NEUTROPHILS % (AUTO) 71 % (42-75); PLATELET COUNT 276 10^3/uL (130-400); RED BLOOD COUNT 4.71 10^6/uL (4.35-5.85); RED CELL DISTRIBUTION WIDTH 14.1 % (10.0-14.5); WHITE BLOOD COUNT 12.9 10^3/uL (4.3-11.0)
[2017-09-16] MEDS ORDERED: FUROSEMIDE 40 MG/4 ML INJ (LASIX) IVP SCH ×2 (06:00→12:00)
[2017-09-16] MEDS: glyBURIDE 2.5 MG (MICRONASE) TAB PO SCH (06:01)
[2017-09-16] MEDS: inSUlin (REGULAR) HUMAN 1 UNIT/0.01 ML (CHARGE PER UNIT) SC SCH ×3 (06:03→18:14)
[2017-09-16 06:21] LABS: CALCIUM 8.6 MG/DL (8.5-10.1); CREATININE SERUM 1.22 MG/DL (0.60-1.30); PHOSPHORUS 4.2 MG/DL (2.3-4.7); POTASSIUM 3.6 MMOL/L (3.6-5.0)
--- NOTE | 2017-09-16 07:21 | Progress Note-Hospitalist ---
Subjective HPI/CC On Admission Date Seen by Provider: Sep 16, 2017 Time Seen by Provider: 07:05 Pt is a 61yoCM with a recent admission for NSTEMI and influenza who presented to the ER last night for acute onset SOB. He was discharged from here on 09/13 and it is unclear whether he was able to receive his medications (he states he received 1 pill of some medications) because he could not fill them at [facility] pharmacy because they were not prescribed by a [facility] provider. He developed worsening shortness of breath yesterday which prompted him to seek evaluation in the ER. On arrival he was found to be in severe respiratory distress and placed on BiPAP. CXR revealed pulmonary edema and his BP was 219/124. He was placed on a Nitro gtt and give Lasix. This morning he reports feeling better and was on NC. He denies any cough, sputum, or fever. Subjective/Events-last exam Pt reports feeling well. Eating and drinking well but feels thirsty due to fluid intake. Still urinating a lot. Breathing improved. Objective Exam Vital Signs Vital Signs Date Time Temp Pulse Resp B/P (MAP) Pulse Ox O2 Delivery O2 Flow Rate FiO2 09/15/17 01:25 96.9 110 26 219/124 (155) 86 Room Air 09/15/17 01:55 100.00 09/15/17 03:55 50 Capillary Refill : Less Than 3 Seconds General Appearance: No Apparent Distress, WD/WN Respiratory: Lungs Clear, No Respiratory Distress Cardiovascular: Regular Rate, Rhythm, Normal Peripheral Pulses Gastrointestinal: Normal Bowel Sounds, Non Tender, Soft Extremity: No Calf Tenderness, No Pedal Edema Neurologic/Psychiatric: Alert, Oriented x3, No Motor/Sensory Deficits Skin: Normal Color, Warm/Dry Results/Procedures Lab Laboratory Tests 09/15/17 08:33 09/16/17 04:45 Assessment/Plan Assessment and Plan Assess & Plan/Chief Complaint acute resp distress Diagnosis/Problems Diagnosis/Problems (1) Acute respiratory distress Assessment & Plan: Due to flash pulmonary edema Off BiPAP and on 2lpm NC Pulm consulted appreciate recs Lasix I/O negative 5L (2) Hypertensive emergency Status: Resolved Assessment & Plan: Likely cause of pulm edema Renal did not visual renal arteries well (3) Elevated troponin Status: Acute Assessment & Plan: Now trending down Cardiology consulted, appreciate recs Plan for cath (4) Leukocytosis Assessment & Plan: Likely reactive, resolved today Blood cultures NGTD (5) CAD (coronary artery disease) Assessment & Plan: Recent NSTEMI with stent placement Concern for stent thrombosis given rising troponin Plan for cath Continue ASA, plavix and statin Qualifiers: Qualified Codes: I25.10 - Atherosclerotic heart disease of [place] coronary artery without angina pectoris (6) Non-insulin dependent type 2 diabetes mellitus Assessment & Plan: On metformin and glyburide as outpatient Resume glyburide but hold metformin for planned cath SSI A1c 11.8 (7) Prophylactic measure Assessment & Plan: Xarelto Saline lock Low Na diet, fluid restriction (8) Discharge planning issues Assessment & Plan: Has no insurance but reports medications were filled at [facility] pharmacy despite not having seen them Called pharmacy and he has 30 day rx for metoprolol, Plavix, Lipitor, lisinopril waiting for him with 10d supply of Metformin and glyburide and 5 day supply of gabapentin Will discussed with [facility] providers to see if valid prescriptions and if they can be filled COCO LAZO MD Sep 16, 2017 7:21 am
--- NOTE | 2017-09-16 08:07 | Diagnostic Imaging Report ---
INDICATION: Pulmonary edema. Comparison with 09/15/2017. FINDINGS: There has been development of bilateral basilar pleural effusions since previous exam. There is increasing basilar infiltrates as well. The heart is not enlarged. The upper lungs are clear. There is no evidence of apical pulmonary venous redistribution now. IMPRESSION: 1. Increasing bilateral basilar effusions and mild basilar infiltrates. 2. There has been clearing of apical pulmonary venous redistribution. Heart size is now normal. Dictated by: Dictated on workstation # [id number]
[2017-09-16] MEDS: CLOPIDOGREL 75 MG (PLAVIX) TABLET PO SCH (08:46)
[2017-09-16] MEDS: RIVAROXABAN 15 MG TABLET (XARELTO) PO SCH (08:46)
[2017-09-16] MEDS: meTOprolol TARTRATE 50 MG (LOPRESSOR) TAB PO SCH ×2 (08:46→20:41)
[2017-09-16] MEDS: ASPIRIN 81 MG CHEW (CHILDREN'S ASA) PO SCH (08:46)
[2017-09-16] MEDS: GABAPENTIN 600 MG (NEURONTIN) TAB PO SCH ×3 (08:46→20:41)
[2017-09-16] MEDS: amLODIPine 5 MG (NORVASC) TAB PO SCH (08:49)
--- NOTE | 2017-09-16 10:37 | Cardiology Progress Note ---
Cardiology SOAP Progress Note Subjective: Significantly improved shortness of breath. Objective: I&O/Vital Signs Vital Sign - Last 12Hours 09/16/17 09/16/17 09/16/17 09/16/17 02:00 02:01 03:00 04:00 Pulse 72 73 69 Resp 10 10 14 B/P (MAP) 127/63 (84) 140/78 (98) 125/69 (87) Pulse Ox 96 95 96 O2 Delivery Nasal Cannula Nasal Cannula Nasal Cannula Nasal Cannula O2 Flow Rate 2.00 3.00 2.00 2.00 09/16/17 09/16/17 09/16/17 09/16/17 04:30 04:30 05:00 06:00 Temp 97.8 Pulse 74 76 Resp 15 16 B/P (MAP) 135/84 (101) 125/85 (98) Pulse Ox 95 94 92 O2 Delivery Nasal Cannula Nasal Cannula Nasal Cannula O2 Flow Rate 2.00 2.00 2.00 09/16/17 09/16/17 09/16/17 09/16/17 07:00 07:00 07:02 08:00 Pulse 86 86 90 Resp 17 11 B/P (MAP) 98/66 (77) 108/62 (77) Pulse Ox 98 96 92 O2 Delivery Nasal Cannula Nasal Cannula Nasal Cannula O2 Flow Rate 2.00 3.00 2.00 09/16/17 09/16/17 09/16/17 09/16/17 08:00 08:44 09:00 10:00 Temp 98.6 Pulse 92 89 69 Resp 10 14 17 B/P (MAP) 120/62 (81) 121/68 (85) 130/74 (92) Pulse Ox 95 94 97 95 O2 Delivery Nasal Cannula Nasal Cannula Nasal Cannula Nasal Cannula O2 Flow Rate 2.00 2.00 2.00 2.00 09/16/17 09/16/17 09/16/17 09/16/17 10:50 11:00 12:00 12:00 Pulse 69 121 Resp 15 10 B/P (MAP) 119/99 (106) 103/62 (76) Pulse Ox 98 94 91 95 O2 Delivery Nasal Cannula Nasal Cannula Nasal Cannula Nasal Cannula O2 Flow Rate 2.00 1.00 1.00 1.00 09/16/17 09/16/17 09/16/17 12:26 13:00 13:00 Temp 98.2 Pulse 128 128 Resp 23 B/P (MAP) 134/71 (92) Pulse Ox 95 O2 Delivery Nasal Cannula O2 Flow Rate 1.00 Intake and Output 09/16/17 00:00 Intake Total 1046 ml Output Total 3350 ml Balance -2304 ml Weight (Pounds): 192 Weight (Ounces): 6.0 Weight (Calculated Kilograms): 87.771699 Constitutional: appears stated age, AAO x 3, PERRL, well-developed Respiratory: chest is bilaterally symmetric, lungs clear to percussion, lungs clear to auscultation Cardiovascular: regular rate-rhythm, No irregularly irregular, No extra beats, No parasternal heave is noted, No JVD, No edema, No bradycardia, No tachycardia , No point of maximal impulse, No cardiac thrills are palpable, S1 and S2, No gallop/S3, No gallop/S4, No diastolic murmur, No systolic murmur, No friction rub, No click, No other Gastrointestional: No tender, No soft, No round, No distended, No pulsatile mass, No organomegaly, No guarding, No rebound, No tenderness, No hernia, No mass, No audible bowel sounds, No abnormal bowel sounds, No abdominal bruits, No spleenomegaly, No other Extremities: No normal range of motion, No non-tender, No normal inspection, No pedal edema, No calf tenderness, No normal capillary refill, No pelvis stable , No calf tenderness, No inflammation, No pedal edema, No slow capillary refill , No swelling, No other, No abrasion, No clubbing, No cyanosis, No ecchymosis, No laceration, No no lower extremity edema bilateral, No significant edema, No tenderness, No wound Neurologic/Psychiatric: No ed transporter II-XII nml as tested, No no motor/sensory deficits, alert, normal mood/affect, oriented x 3, No abnormal cerebellar tests , No abnormal ed transporter II-XII, No abnormal gait, No aphasia, No EOM palsy, No facial droop, No motor weakness, No sensory deficit, No depressed affect, No disoriented x 3, No other, No grossly intact, No power is 5/5 both on sides Skin: No normal color, No warm/dry, No cyanosis, No cool, No diaphoresis, No damp, No ecchymosis, No jaundice, No mottled, No pallor, No rash, No tattoos/ piercings, No ulcerations, No rash on exposed areas, No ulcerations on exposed areas, No other Results/Procedures: Labs Laboratory Tests 09/15/17 17:40: Glucometer 301H 09/15/17 23:55: Glucometer 251H 09/16/17 04:45: White Blood Count 12.9H, Red Blood Count 4.71, Hemoglobin 14.1, Hematocrit 42, Mean Corpuscular Volume 89, Mean Corpuscular Hemoglobin 30, Mean Corpuscular Hemoglobin Concent 34, Red Cell Distribution Width 14.1, Platelet Count 276, Mean Platelet Volume 10.4, Neutrophils (%) (Auto) 71, Lymphocytes (%) (Auto) 20 , Monocytes (%) (Auto) 7, Eosinophils (%) (Auto) 2, Basophils (%) (Auto) 0, Neutrophils # (Auto) 9.1H, Lymphocytes # (Auto) 2.6, Monocytes # (Auto) 0.9, Eosinophils # (Auto) 0.2, Basophils # (Auto) 0.0, Sodium Level 139, Potassium Level 3.6, Chloride Level 99, Carbon Dioxide Level 28, Anion Gap 12, Blood Urea Nitrogen 32H, Creatinine 1.22, Estimat Glomerular Filtration Rate 60, BUN/ Creatinine Ratio 26, Glucose Level 184H, Calcium Level 8.6, Phosphorus Level 4.2 , Magnesium Level 2.0, Troponin I 0.39*H, B-Type Natriuretic Peptide 404.4H, Triglycerides Level 98, Cholesterol Level 95, LDL Cholesterol Direct 39, VLDL Cholesterol 20, HDL Cholesterol 34L 09/16/17 05:59: Glucometer 197H 09/16/17 12:14: Glucometer 349H Microbiology 09/15/17 Blood Culture - Preliminary, Resulted No growth A/P: Assessment/Dx: acute diastolic congestive heart failure, Severe respiratory distress, Leukocytosis, Non-ST elevation SD, Acute kidney injury, Diabetes, Active smoking, severe Hypertension Plan: acute diastolic congestive heart failure: Significant improvement. Elevated BNP. Pulmonary edema on chest x-ray. High dose IV Lasix. fluid restriction, salt restriction. Further education. Non-ST elevation SD: Troponin 0.40 on admission, 0.6 this morning. Increasing troponin is concerning. He will very likely require coronary angiography on . However I do not believe it is stent thrombosis since the presentation would have been acute STEMI. Patient was compliant with dual antiplatelet therapy. Continue aspirin, Plavix, Lipitor, beta claribel. Severe hypertension: Responded to nitroglycerin infusion. Restart amlodipine, metoprolol. Hold lisinopril for now. We'll request bilateral renal ultrasound to rule out renal artery stenosis since the patient has severe hypertension, pulmonary edema, acute kidney injury. Renal ultrasound was nondiagnostic. We will performed renal angiography. Paroxysmal atrial fibrillation: Currently in sinus rhythm. Continue beta claribel and Xarelto. Acute kidney injury: Continue to follow. Rule out renal artery stenosis. Leukocytosis: Blood cultures pending. Spoke with Dr. Mehta. If blood cultures negative 24 hours then okay with coronary angiography. Thank you for your consultation. Please call me if you have any questions. Araceli Florentino MD, FACP, FACC, FSCAI, FHRS, CCDS Interventional Cardiology Cardiac Electrophysiology Vascular Medicine and Endovascular Interventions Ignacio FLORENTINO MD Sep 16, 2017 10:37
[2017-09-16] MEDS ORDERED: DILTIAZEM IV FOR DRIP 125 MG in D5W 100 ML IVPB 100 ML IV SCH (15:30)
[2017-09-16] MEDS ORDERED: DILTIAZEM 25 MG/5 ML INJ (CARDIZEM) VIAL IVP NR (15:35)
[2017-09-16] MEDS: ATORVASTATIN 40 MG (LIPITOR) TABLET PO SCH (20:41)
[2017-09-17] VITALS (18 sets, daily range): BP systolic 71–214; BP diastolic 46–95
[2017-09-17] MEDS: inSUlin (REGULAR) HUMAN 1 UNIT/0.01 ML (CHARGE PER UNIT) SC SCH ×3 (00:19→12:32)
[2017-09-17] MEDS: RT-ALBUTEROL/IPRATROPIUM 3 ML (DUONEB) VIAL INH SCH ×2 (03:15→06:43)
[2017-09-17 04:56] LABS: BASOPHILS % (AUTO) 0 % (0-10); EOSINOPHILS # (AUTO) 0.3 10^3/uL (0.0-0.3); EOSINOPHILS % (AUTO) 2 % (0-10); HEMATOCRIT 46 % (40-54); HEMOGLOBIN 15.3 G/DL (13.3-17.7); LYMPHOCYTES # (AUTO) 2.3 X 10^3 (1.0-4.0); LYMPHOCYTES % (AUTO) 16 % (12-44); MEAN CORPUSCULAR HEMOGLOBIN 30 PG (25-34); MEAN CORPUSCULAR HGB CONC 33 G/DL (32-36); MEAN CORPUSCULAR VOLUME 89 FL (80-99); MONOCYTES # (AUTO) 1.1 X 10^3 (0.0-1.0); MONOCYTES % (AUTO) 7 % (0-12); NEUTROPHILS # (AUTO) 10.8 X 10^3 (1.8-7.8); NEUTROPHILS % (AUTO) 75 % (42-75); PLATELET COUNT 285 10^3/uL (130-400); RED BLOOD COUNT 5.18 10^6/uL (4.35-5.85); RED CELL DISTRIBUTION WIDTH 14.2 % (10.0-14.5); WHITE BLOOD COUNT 14.5 10^3/uL (4.3-11.0)
[2017-09-17] MEDS: NITROGLYCERIN DRIP 25 MG/250 ML D5W (PRE-MIX) IV SCH (05:22)
[2017-09-17 05:24] LABS: CALCIUM 9.5 MG/DL (8.5-10.1); CREATININE SERUM 1.44 MG/DL (0.60-1.30); MAGNESIUM 2.3 MG/DL (1.8-2.4); PHOSPHORUS 4.1 MG/DL (2.3-4.7); POTASSIUM 3.9 MMOL/L (3.6-5.0)
[2017-09-17] MEDS: glyBURIDE 2.5 MG (MICRONASE) TAB PO SCH (06:23)
--- NOTE | 2017-09-17 06:43 | Pulmonary Consultation ---
History of Present Illness History of Present Illness Date of Consultation 09/17/17 06:32 Time Seen by Provider: 06:32 Date of Admission History of Present Illness Pt is a 61yoCM with a recent admission for NSTEMI and influenza who presented to the ER last night for acute onset SOB. He was discharged from here on 09/13 and it is unclear whether he was able to receive his medications (he states he received 1 pill of some medications) because he could not fill them at [facility] pharmacy because they were not prescribed by a [facility] provider. He developed worsening shortness of breath yesterday which prompted him to seek evaluation in the ER. On arrival he was found to be in severe respiratory distress and placed on BiPAP. CXR revealed pulmonary edema and his BP was 219/124. He was placed on a Nitro gtt and give Lasix. This morning he reports feeling better and was on NC. He denies any cough, sputum, or fever. Allergies and Home Medications Allergies Coded Allergies: No Known Drug Allergies (Unverified , 02/07/13) Home Medications Amlodipine Besylate 5 Mg Tablet, 5 MG PO DAILY, (Reported) LAST FILLED #30 04-02- Aspirin 81 Mg Tab.chew, 81 MG PO DAILY for 30 Days, #30 Ref 3 Prescribed by: Ignacio CID on 09/13/17 1302 Atorvastatin Calcium 40 Mg Tablet, 40 MG PO HS for 90 Days, #90 Ref 3 Prescribed by: Ignacio CID on 09/13/17 1302 Cefdinir 300 Mg Capsule, 300 MG PO BID, #14 Prescribed by: MAURICIO OSEGUERA on 09/13/17 1239 Clopidogrel Bisulfate 75 Mg Tablet, 75 MG PO DAILY for 90 Days, #90 Ref 3 Prescribed by: Ignacio CID on 09/13/17 1302 Gabapentin 300 Mg Capsule, 600 MG PO TID, #30 Prescribed by: MAURICIO OSEGUERA on 09/13/17 1232 Glyburide 2.5 Mg Tablet, 2.5 MG PO DAILY, #10 Prescribed by: MAURICIO OSEGUERA on 09/13/17 1232 Lisinopril 20 Mg Tablet, 20 MG PO DAILY for 90 Days, #90 Ref 3 Prescribed by: Ignacio CID on 09/13/17 1302 Metformin HCl 500 Mg Tablet, 500 MG PO BID, #20 Prescribed by: MAURICIO OSEGUERA on 09/13/17 1232 Metoprolol Tartrate 50 Mg Tablet, 50 MG PO BID for 90 Days, #180 Ref 3 Prescribed by: Ignacio CID on 09/13/17 1302 Oseltamivir Phosphate 30 Mg Capsule, 0 EACH PO BID for 2 Days Prescribed by: MAURICIO OSEGUERA on 09/13/17 1232 Prednisone 10 Mg Tab.ds.pk, 10 MG PO DAILY, #3 Prescribed by: MAURICIO OSEGUERA on 09/13/17 1232 Rivaroxaban 15 Mg Tablet, 15 MG PO DAILY for 30 Days, #30 Ref 4 Prescribed by: Ignacio CID on 09/13/17 1302 Past Ualrwjb-Fdfkot-Eaepji Hx Patient Social History Alcohol Use: Denies Use Recreational Drug Use: Yes Drug of Choice: OCCASIONAL MARIJUANA USE Smoking Status: Current Everyday Smoker Type Used: Cigarettes, Electronic/Vapor Recent Foreign Travel: No Contact w/Someone Who Travel: No Recent Infectious Disease Expo: No Recent Hopitalizations: Yes (D/C FROM THIS FACILITY ON 09/13/17) Immunizations Up To Date Tetanus Booster (TDap): Unknown PED Vaccines UTD: No Date of Pneumonia Vaccine: Sep 09, 2014 Seasonal Allergies Seasonal Allergies: No Surgeries History of Surgeries: Yes (HERNIA REPAIR) Respiratory History of Respiratory Disorde: Yes (HX OF CHF-RESP DISTRESS) Currently Using CPAP: No Currently Using BIPAP: No Cardiovascular 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") Cardiac Disorders: Heart Attack (NSTEMI 09/2017), High Cholesterol, Hypertension Neurological History of Neurological Disord: Yes (NEUROPATHY IN FEET) Neurological Disorders: Neuropathy Reproductive System Hx Reproductive Disorders: No Sexually Transmitted Disease: No HIV/AIDS: No Genitourinary History of Genitourinary Disor: Yes Genitourinary Disorders: Renal Failure Gastrointestinal History of Gastrointestinal Di: Yes (VENTRAL HERNIA) Gastrointestinal Disorders: Pancreatitis Musculoskeletal History of Musculoskeletal Dis: No Endocrine History of Endocrine Disorders: Yes Endocrine Disorders: Diabetes, Non-Insulin dep HEENT History of HEENT Disorders: No Cancer History of Cancer: No Psychosocial History of Psychiatric Problem: Yes Behavioral Health Disorders: Anxiety, Depression Integumentary History of Skin or Integumenta: No Blood Transfusions History of Blood Disorders: No Adverse Reaction to a Blood Tr: No Reviewed Nursing Assessment Reviewed/Agree w Nursing PMH: Yes Family Medical History Family Medial History: Diabetes mellitus 19 MOTHER G8 SISTER FH: lymphoma 19 FATHER Review of Systems Time Seen by Provider: 06:48 Constitutional: Weakness, Malaise, No: Fever, Chills Respiratory: Cough, Dry, Shortness of breath, SOB with excertion, Wheezing Cardiovascular: Paroxysmal Noc. Dyspnea, Edema, No: Chest Pain, Lt Headedness Gastrointestinal: No: Nausea, Vomiting, Diarrhea Neurological: Weakness Exam Exam Vital Signs Date Time Temp Pulse Resp B/P (MAP) Pulse Ox O2 Delivery O2 Flow Rate FiO2 09/17/17 06:00 81 13 118/60 (79) 96 Nasal Cannula 2.00 09/17/17 05:00 9 15 134/83 (100) 95 Nasal Cannula 2.00 09/17/17 04:00 93 Nasal Cannula 2.00 09/17/17 04:00 97.6 74 15 92/46 (61) 93 Nasal Cannula 2.00 09/17/17 04:00 70 9 92/46 (61) 95 Nasal Cannula 2.00 09/17/17 03:00 73 14 107/49 (68) 99 Nasal Cannula 2.00 09/17/17 01:00 74 09/17/17 01:00 79 16 103/52 (69) 96 Nasal Cannula 2.00 09/16/17 23:45 97 Nasal Cannula 2.00 09/16/17 23:45 98.4 09/16/17 23:00 72 14 103/64 (77) 96 Nasal Cannula 2.00 09/16/17 22:30 98 Nasal Cannula 2.00 09/16/17 22:00 71 16 99/48 (65) 94 Nasal Cannula 2.00 09/16/17 21:00 82 12 115/66 (82) 94 Nasal Cannula 2.00 09/16/17 20:00 95 20 118/69 (85) 96 Nasal Cannula 2.00 09/16/17 19:25 97 Nasal Cannula 2.00 09/16/17 19:20 95 Nasal Cannula 2.00 09/16/17 19:00 102 09/16/17 19:00 98.6 98 14 101/50 (67) 97 Nasal Cannula 2.00 09/16/17 18:00 93 20 123/78 (93) 93 Nasal Cannula 2.00 09/16/17 17:00 154 15 83/71 (75) 93 Nasal Cannula 2.00 09/16/17 16:17 98.4 09/16/17 16:14 91 Nasal Cannula 2.00 09/16/17 16:00 123 13 101/63 (76) 90 Nasal Cannula 2.00 09/16/17 15:47 111/78 (89) 09/16/17 15:31 Nasal Cannula 1.00 09/16/17 15:15 104/71 (82) 09/16/17 15:07 130 86/62 (70) 09/16/17 15:00 156 89/65 (73) 09/16/17 14:58 92 Nasal Cannula 1.00 09/16/17 14:30 140 104/75 (85) 09/16/17 13:00 128 23 134/71 (92) 95 Nasal Cannula 1.00 09/16/17 13:00 128 09/16/17 12:26 98.2 09/16/17 12:00 95 Nasal Cannula 1.00 09/16/17 12:00 121 10 103/62 (76) 91 Nasal Cannula 1.00 09/16/17 11:00 69 15 119/99 (106) 94 Nasal Cannula 1.00 09/16/17 10:50 98 Nasal Cannula 2.00 09/16/17 10:00 69 17 130/74 (92) 95 Nasal Cannula 2.00 09/16/17 09:00 89 14 121/68 (85) 97 Nasal Cannula 2.00 09/16/17 08:44 98.6 92 10 120/62 (81) 94 Nasal Cannula 2.00 09/16/17 08:00 95 Nasal Cannula 2.00 09/16/17 08:00 90 11 108/62 (77) 92 Nasal Cannula 2.00 09/16/17 07:02 96 Nasal Cannula 3.00 09/16/17 07:00 86 09/16/17 07:00 86 17 98/66 (77) 98 Nasal Cannula 2.00 I & O 09/17/17 07:00 Intake Total 969 ml Output Total 4425 ml Balance -3456 ml General Appearance: No Apparent Distress, WD/WN, Anxious HEENT: PERRL/EOMI, Moist Mucous Membranes Neck: Non Tender, Supple Respiratory: Lungs Clear, No Respiratory Distress Cardiovascular: Regular Rate, Rhythm, Normal Peripheral Pulses Capillary Refill: Less Than 3 Seconds Gastrointestinal: non tender, soft Extremity: No Calf Tenderness, No Pedal Edema Neurologic/Psychiatric: Alert, Oriented x3, No Motor/Sensory Deficits Skin: Normal Color, Warm/Dry Results Lab Laboratory Tests 09/15/17 08:33 09/16/17 04:45 09/17/17 04:45 Assessment/Plan Assessment/Plan Acute respiratory distress secondary to CHFAE -improved after lasix Acute diastolic CHF -Pulmonary status is much improved only requiring 2 liters of oxygen. renal function is worse. -Hold lasix -Cardiology is following and planning a heart cath today probable COPD -Pt smoked for 40yrs -He still complains of nonproductive cough and SOB -Continue SVNs -start Solumedrol 40 IV Q 6 -Pt may need home oxygen upon discharge NSTEMI Acute worsening renal failure -hold lasix -Will start IVF at 30cc/hr since pt is having a heart cath today 255 Clinical Quality Measures DVT/VTE Risk/Contraindication: Risk Factor Score Per Nursin RFS Level Per Nursing on Admit: 4+=Very High MARTHA HERNANDES DO Sep 17, 2017 06:43
[2017-09-17] MEDS ORDERED: NS IV 1000 ML 1,000 ML IV SCH ×2 (06:45→11:27)
--- NOTE | 2017-09-17 07:25 | Progress Note-Hospitalist ---
Subjective HPI/CC On Admission Date Seen by Provider: Sep 17, 2017 Time Seen by Provider: 07:10 Pt is a 61yoCM with a recent admission for NSTEMI and influenza who presented to the ER last night for acute onset SOB. He was discharged from here on 09/13 and it is unclear whether he was able to receive his medications (he states he received 1 pill of some medications) because he could not fill them at [facility] pharmacy because they were not prescribed by a [facility] provider. He developed worsening shortness of breath yesterday which prompted him to seek evaluation in the ER. On arrival he was found to be in severe respiratory distress and placed on BiPAP. CXR revealed pulmonary edema and his BP was 219/124. He was placed on a Nitro gtt and give Lasix. This morning he reports feeling better and was on NC. He denies any cough, sputum, or fever. Subjective/Events-last exam Pt reports feeling well. No complaints. Objective Exam Vital Signs Vital Signs Date Time Temp Pulse Resp B/P (MAP) Pulse Ox O2 Delivery O2 Flow Rate FiO2 09/15/17 01:25 96.9 110 26 219/124 (155) 86 Room Air 09/15/17 01:55 100.00 09/15/17 03:55 50 Capillary Refill : Less Than 3 Seconds General Appearance: No Apparent Distress, WD/WN Respiratory: Lungs Clear, No Accessory Muscle Use, No Respiratory Distress Cardiovascular: Regular Rate, Rhythm, No Murmur Extremity: Normal Inspection, No Pedal Edema Neurologic/Psychiatric: Alert, Oriented x3 Results/Procedures Lab Laboratory Tests 09/17/17 04:45 Assessment/Plan Assessment and Plan Assess & Plan/Chief Complaint acute resp distress Diagnosis/Problems Diagnosis/Problems (1) Diastolic heart failure Assessment & Plan: Negative 9L since admission and weight down 7kg Creatinine up so will decrease Lasix Still on supplemental oxygen Cardiology consulted, appreciate recs Qualifiers: Qualified Codes: I50.31 - Acute diastolic (congestive) heart failure (2) Elevated troponin Status: Acute Assessment & Plan: Now trending down Cardiology consulted, appreciate recs [employer] 1.4 today- will defer to cardiology if they still wanted to cath today (3) Hypertensive emergency Status: Resolved Assessment & Plan: Likely cause of pulm edema Renal did not visualize renal arteries well Continue on current antihypertensives as well controlled (4) Acute respiratory distress Assessment & Plan: Due to flash pulmonary edema Off BiPAP and on 2lpm NC Pulm, consulted, appreciate recs (5) Leukocytosis Assessment & Plan: Likely reactive but trending up Blood cultures NGTD (6) CAD (coronary artery disease) Assessment & Plan: Recent NSTEMI with stent placement Concern for stent thrombosis given rising troponin Had planned for Cath today but will defer to cardiology with creatinine at 1.4 Continue ASA, plavix and statin Qualifiers: Qualified Codes: I25.10 - Atherosclerotic heart disease of [place] coronary artery without angina pectoris (7) Non-insulin dependent type 2 diabetes mellitus Assessment & Plan: On metformin and glyburide as outpatient Resume glyburide but hold metformin for planned cath SSI A1c 11.8 (8) Discharge planning issues Assessment & Plan: Has no insurance but reports medications were filled at [facility] pharmacy despite not having seen them Called pharmacy and he has 30 day rx for metoprolol, Plavix, Lipitor, lisinopril waiting for him with 10d supply of Metformin and glyburide and 5 day supply of gabapentin Will discussed with [facility] providers to see if valid prescriptions and if they can be filled Per Dr Alvarez at [facility]- medications were filled at there pharmacy and can be picked up on discharge (9) Prophylactic measure Assessment & Plan: Xarelto NS at 50ml/hr Low Na diet, fluid restriction COCO LAZO MD Sep 17, 2017 7:25 am
[2017-09-17] MEDS ORDERED: RT-ADVAIR HFA 115/21 MCG PER PUFF IH SCH (08:00)
[2017-09-17] MEDS: amLODIPine 5 MG (NORVASC) TAB PO SCH (08:53)
[2017-09-17] MEDS: CLOPIDOGREL 75 MG (PLAVIX) TABLET PO SCH (08:53)
[2017-09-17] MEDS: ASPIRIN 81 MG CHEW (CHILDREN'S ASA) PO SCH (08:53)
[2017-09-17] MEDS: GABAPENTIN 600 MG (NEURONTIN) TAB PO SCH (08:53)
[2017-09-17] MEDS: meTOprolol TARTRATE 50 MG (LOPRESSOR) TAB PO SCH (08:53)
[2017-09-17] MEDS: RIVAROXABAN 15 MG TABLET (XARELTO) PO SCH (08:53)
[2017-09-17] MEDS ORDERED: HEParin (CATH LAB) 2,000 ML IV ONE (09:36)
[2017-09-17] MEDS ORDERED: LIDOCAINE 1% INJ 50 ML (XYLOCAINE) VIAL ONE (09:36)
[2017-09-17] MEDS ORDERED: AMIODARONE IV SOLUTION 200 ML IV ONE (09:45)
[2017-09-17] MEDS ORDERED: NITROGLYCERIN DRIP 25 MG/D5W 0 ML IV ONE (09:50)
[2017-09-17] MEDS ORDERED: MIDAZOLAM 5 MG/5 ML (VERSED) VIAL ONE (09:50)
[2017-09-17] MEDS ORDERED: VERAPAMIL 5 MG/2 ML (CALAN) VIAL IV ONE (09:50)
[2017-09-17] MEDS ORDERED: fentaNYL INJECTION 100 MCG/2 ML AMP ONE (09:50)
[2017-09-17] MEDS ORDERED: HEParin 1000 UNIT/ML (10ML VIAL) FOR BOLUS ONE (09:50)
--- NOTE | 2017-09-17 10:36 | Diagnostic Imaging Report ---
INDICATION: Pulmonary edema, hypertension, elevated troponin.. TECHNIQUE: Single view chest 4:10 AM. CORRELATION STUDY: 09/16/2017 FINDINGS: Heart size enlarged. Vasculature overall is relatively normal on followup. Right pleural effusion along with infiltrate, atelectasis and/or edema about the right lung base has adversely changed. Left lung relatively clear on followup. IMPRESSION: 1. Increasing infiltrate, atelectasis and/or fluid about the right lung base along with small right pleural effusion. 2. Cardiac enlargement. Vasculature improved on followup. Left lung relatively clear on followup. Dictated by: Dictated on workstation # [id number]
[2017-09-17] MEDS ORDERED: FUROSEMIDE 40 MG/4 ML INJ (LASIX) ONE (11:13)
--- NOTE | 2017-09-17 11:25 | Cardiology Progress Note ---
Cardiology SOAP Progress Note Subjective: Shortness of breath, atrial fibrillation Objective: I&O/Vital Signs Vital Sign - Last 12Hours 09/17/17 09/17/17 09/17/17 09/17/17 04:00 04:00 04:00 05:00 Temp 97.6 Pulse 70 74 9 Resp 9 15 15 B/P (MAP) 92/46 (61) 92/46 (61) 134/83 (100) Pulse Ox 95 93 93 95 O2 Delivery Nasal Cannula Nasal Cannula Nasal Cannula Nasal Cannula O2 Flow Rate 2.00 2.00 2.00 2.00 09/17/17 09/17/17 09/17/17 09/17/17 06:00 06:43 07:00 07:00 Pulse 81 86 85 Resp 13 B/P (MAP) 118/60 (79) Pulse Ox 96 96 O2 Delivery Nasal Cannula Nasal Cannula O2 Flow Rate 2.00 2.00 09/17/17 09/17/17 09/17/17 09/17/17 07:00 08:00 08:00 09:00 Pulse 87 92 118 Resp 27 8 10 B/P (MAP) 143/61 (88) 102/53 (69) 136/69 (91) Pulse Ox 98 94 95 93 O2 Delivery Nasal Cannula Nasal Cannula Nasal Cannula Nasal Cannula O2 Flow Rate 2.00 2.00 2.00 2.00 09/17/17 09/17/17 09/17/17 09/17/17 10:00 11:20 11:35 12:55 Temp 98.2 Pulse 105 74 67 Resp 8 24 9 B/P (MAP) 144/76 (98) 115/72 (86) 120/72 (88) Pulse Ox 95 94 93 O2 Delivery Nasal Cannula Room Air Room Air Mechanical Ventilator O2 Flow Rate 2.00 100.00 09/17/17 09/17/17 09/17/17 13:00 13:18 14:25 Pulse 90 84 Resp 16 Pulse Ox 94 O2 Delivery Mechanical Ventilator O2 Flow Rate 80.00 FiO2 100 Intake and Output 09/17/17 00:00 Intake Total 969 ml Output Total 3600 ml Balance -2631 ml Weight (Pounds): 187 Weight (Ounces): 4.0 Weight (Calculated Kilograms): 84.411004 Constitutional: appears stated age, AAO x 3, PERRL, well-developed Respiratory: chest is bilaterally symmetric, lungs clear to percussion, lungs clear to auscultation Cardiovascular: regular rate-rhythm, No irregularly irregular, No extra beats, No parasternal heave is noted, No JVD, No edema, No bradycardia, No tachycardia , No point of maximal impulse, No cardiac thrills are palpable, S1 and S2, No gallop/S3, No gallop/S4, No diastolic murmur, No systolic murmur, No friction rub, No click, No other Gastrointestional: No tender, No soft, No round, No distended, No pulsatile mass, No organomegaly, No guarding, No rebound, No tenderness, No hernia, No mass, No audible bowel sounds, No abnormal bowel sounds, No abdominal bruits, No spleenomegaly, No other Extremities: No normal range of motion, No non-tender, No normal inspection, No pedal edema, No calf tenderness, No normal capillary refill, No pelvis stable , No calf tenderness, No inflammation, No pedal edema, No slow capillary refill , No swelling, No other, No abrasion, No clubbing, No cyanosis, No ecchymosis, No laceration, No no lower extremity edema bilateral, No significant edema, No tenderness, No wound Neurologic/Psychiatric: No storyboard artist II-XII nml as tested, No no motor/sensory deficits, alert, normal mood/affect, oriented x 3, No abnormal cerebellar tests , No abnormal storyboard artist II-XII, No abnormal gait, No aphasia, No EOM palsy, No facial droop, No motor weakness, No sensory deficit, No depressed affect, No disoriented x 3, No other, No grossly intact, No power is 5/5 both on sides Skin: No normal color, No warm/dry, No cyanosis, No cool, No diaphoresis, No damp, No ecchymosis, No jaundice, No mottled, No pallor, No rash, No tattoos/ piercings, No ulcerations, No rash on exposed areas, No ulcerations on exposed areas, No other Results/Procedures: Labs Laboratory Tests 09/16/17 18:09: Glucometer 253H 09/16/17 23:46: Glucometer 407*H 09/17/17 04:45: White Blood Count 14.5H, Red Blood Count 5.18, Hemoglobin 15.3, Hematocrit 46, Mean Corpuscular Volume 89, Mean Corpuscular Hemoglobin 30, Mean Corpuscular Hemoglobin Concent 33, Red Cell Distribution Width 14.2, Platelet Count 285, Mean Platelet Volume 10.0, Neutrophils (%) (Auto) 75, Lymphocytes (%) (Auto) 16 , Monocytes (%) (Auto) 7, Eosinophils (%) (Auto) 2, Basophils (%) (Auto) 0, Neutrophils # (Auto) 10.8H, Lymphocytes # (Auto) 2.3, Monocytes # (Auto) 1.1H, Eosinophils # (Auto) 0.3, Basophils # (Auto) 0.0, Sodium Level 139, Potassium Level 3.9, Chloride Level 95L, Carbon Dioxide Level 33H, Anion Gap 11, Blood Urea Nitrogen 31H, Creatinine 1.44H, Estimat Glomerular Filtration Rate 50, BUN/ Creatinine Ratio 22, Glucose Level 258H, Calcium Level 9.5, Phosphorus Level 4.1 , Magnesium Level 2.3 09/17/17 12:26: Glucometer 344H 09/17/17 12:50: Blood Gas Puncture Site RT RAD, Blood Gas Patient Temperature 98.6, Arterial Blood pH 7.28*L, Arterial Blood Partial Pressure CO2 53H, Arterial Blood Partial Pressure O2 135H, Arterial Blood HCO3 24, Arterial Blood Total CO2 25.6 , Arterial Blood Oxygen Saturation 99, Arterial Blood Base Excess -1.8, Al Test YES-POS, Blood Gas Ventilator Setting NO, Blood Gas Inspired Oxygen 15 09/17/17 13:14: White Blood Count 15.5H, Red Blood Count 6.17H, Hemoglobin 18.3H, Hematocrit 56H , Mean Corpuscular Volume 90, Mean Corpuscular Hemoglobin 30, Mean Corpuscular Hemoglobin Concent 33, Red Cell Distribution Width 14.6H, Platelet Count 238, Mean Platelet Volume 10.2, Neutrophils (%) (Auto) 71, Lymphocytes (%) (Auto) 28 , Monocytes (%) (Auto) 0, Eosinophils (%) (Auto) 1, Basophils (%) (Auto) 1, Neutrophils # (Auto) 11.0H, Lymphocytes # (Auto) 4.3H, Monocytes # (Auto) 0.1, Eosinophils # (Auto) 0.1, Basophils # (Auto) 0.1, Neutrophils % (Manual) 54, Lymphocytes % (Manual) 33, Monocytes % (Manual) 1, Eosinophils % (Manual) 0, Basophils % (Manual) 0, Myelocytes % 2, Band Neutrophils 10, Blood Morphology Comment NORMAL, Sodium Level 133L, Potassium Level 4.6, Chloride Level 97L, Carbon Dioxide Level 24, Anion Gap 12, Blood Urea Nitrogen 26H, Creatinine 1.40H , Estimat Glomerular Filtration Rate 51, BUN/Creatinine Ratio 19, Glucose Level 330H, Calcium Level 8.6, Magnesium Level 2.3, Total Bilirubin 0.4, Aspartate Amino Transf (AST/SGOT) 25, Alanine Aminotransferase (ALT/SGPT) 21, Alkaline Phosphatase 137H, Troponin I < 0.30, Total Protein 7.2, Albumin 3.3, Triglycerides Level 265H 09/17/17 13:32: Lab Scanned Report Transfusion Reaction Form 09/17/17 13:48: Hemoglobin 15.4, Hematocrit 47 09/17/17 13:58: Blood Gas Puncture Site RT RADIAL, Blood Gas Patient Temperature 96.9, Arterial Blood pH 7.23*L, Arterial Blood Partial Pressure CO2 60H, Arterial Blood Partial Pressure O2 385H, Arterial Blood HCO3 25, Arterial Blood Total CO2 26.4 , Arterial Blood Oxygen Saturation 100, Arterial Blood Base Excess -2.2, Al Test YES-POS, Blood Gas Ventilator Setting NO, Blood Gas Inspired Oxygen 100% 09/17/17 14:10: Blood Gas Puncture Site RT SUBCLAVIAN CL ART, Blood Gas Patient Temperature 96.9 , Arterial Blood pH 7.20*L, Arterial Blood Partial Pressure CO2 68H, Arterial Blood Partial Pressure O2 371H, Arterial Blood HCO3 26, Arterial Blood Total CO2 27.8, Arterial Blood Oxygen Saturation 100, Arterial Blood Base Excess -1.8 , Al Test NA, Blood Gas Ventilator Setting YES, Blood Gas Inspired Oxygen 100 % Microbiology 09/15/17 Blood Culture - Preliminary, Resulted No growth 09/15/17 MRSA Screen - Final, Complete MRSA not isolated A/P: Assessment/Dx: acute diastolic congestive heart failure, Severe respiratory distress, Leukocytosis, Non-ST elevation [place], Acute kidney injury, Diabetes, Active smoking, severe Hypertension Plan: acute diastolic congestive heart failure: improvement. Elevated BNP. Pulmonary edema on chest x-ray. High dose IV Lasix. fluid restriction, salt restriction. Further education. Non-ST elevation [place]: Troponin 0.40 on admission, 0.6 this morning. Coronary angiography today. However I do not believe it is stent thrombosis since the presentation would have been acute STEMI. Patient was compliant with dual antiplatelet therapy. Continue aspirin, Plavix, Lipitor, beta claribel. Severe hypertension: Responded to nitroglycerin infusion. Restart amlodipine, metoprolol. Hold lisinopril for now. We'll request bilateral renal ultrasound to rule out renal artery stenosis since the patient has severe hypertension, pulmonary edema, acute kidney injury. Renal ultrasound was nondiagnostic. We will performed renal angiography. Paroxysmal atrial fibrillation: Currently in sinus rhythm. Continue beta claribel and Xarelto. Acute kidney injury: Continue to follow. Rule out renal artery stenosis. Leukocytosis: Thank you for your consultation. Please call me if you have any questions. Araceli Florentino MD, FACP, FACC, FSCAI, FHRS, CCDS Interventional Cardiology Cardiac Electrophysiology Vascular Medicine and Endovascular Interventions Ignacio FLORENTINO MD Sep 17, 2017 11:25 am
--- NOTE | 2017-09-17 11:27 | Cardiac Procedure Note-CS/ASA ---
Pre-Procedure Note Pre-Op Procedure Note H&P Reviewed The H&P was reviewed, patient examined and no changes noted. Date H&P Reviewed: Sep 17, 2017 Time H&P Reviewed: 10:30 Conscious Sedation Pre-Proced Time Reviewed: 10:30 ASA Class: 3 Airway Mallampati Classification: (fort mcdermitt appropriate class) I. II. III, IV Lungs Heart ASA score ASA 1: a normal healthy patient ASA 2: a patient with a mild systemic disease (mid diabetes, controlled hypertension, obesity ASA 3: a patient with a severe systemic disease that limits activity (angina , COPD, prior Myocardial infarction) ASA 4: a patient with an incapacitating disease that is a constant threat to life (CHF, renal failure) ASA 5: a moribund patient not expected to survive 24 hrs. (ruptured aneurysm) ASA 6: a declared brain patient whose organs are being harvested. For emergent operations, add the letter E after the classification Grade 1 Sedation Plan: Analgesia, Amnesia, Plan communicated to team members, Discussed options with patient/fam, Discussed risks with patient/fam Note The patient is an appropriate candidate to undergo the planned procedure, sedation, and anesthesia. The patient immediately re-assessed prior to indication. Ignacio CID MD Sep 17, 2017 11:27
[2017-09-17] MEDS ORDERED: PATIENT MAY USE OWN MEDS, ALL PO SCH (11:30)
--- NOTE | 2017-09-17 11:39 | Coronary Angiography Report ---
Coronary Angiography Report DATE OF PROCEDURE: 09/17/17 INDICATION: 1. Acute congestive heart failure, pulmonary edema. 2. Chronic kidney disease. 3. Severe hypertension refractory to medical therapy. 4. New onset non-ST elevation IA PREOPERATIVE DIAGNOSIS: 1. Acute congestive heart failure, pulmonary edema. 2. Chronic kidney disease. 3. Severe hypertension refractory to medical therapy. 4. New onset non-ST elevation IA POSTOPERATIVE DIAGNOSIS: 1. patent ostial LAD stent with mild mid LAD and moderate LCx/OM 1 disease. Known RCA [employer]OR OF [employer]. 2. LVEDP 20 mmHg. 3. Normal bilateral renal arteries. HISTORY: this is a 61-year-old gentleman who was recently admitted with non- STEMI and acute influenza. Coronary angiography showed severe ostial LAD disease which was treated with a drug-eluting stent. There was moderate to severe left circumflex artery/OM disease which was negative by FFR. There is a chronic total occlusion of the proximal RCA which is supplied by collaterals from the left system. Elevated LVEDP was noted. Patient came back to the ER 48 -72 hours after discharge with pulmonary edema, severe hypertension and new onset non-STEMI. Initial troponin was 0.4 which increased to 0.6. Patient was treated with IV Lasix, IV nitroglycerin and coronary angiography and renal angiography was discussed.Therefore, the patient was scheduled for coronary and renal angiography. PROCEDURES PERFORMED: 1.Coronary angiography. 2.Left heart catheterization. 3. Abdominal aortogram. 4. Selective bilateral renal angiography. 5. Mynx closure of right femoral artery. COMPLICATIONS: None. SPECIMENS: None. ESTIMATED BLOOD LOSS: 10 mL ANESTHESIA: Conscious sedation ANTICOAGULATION: IV heparin CONTRAST: 63cc FLUOROSCOPY: 5 minutes. FLOUROSCOPY DOSE: 576 mgy. PROCEDURE DETAILS: The patient is a 61 male and was brought to the laboratory director after informed consent was taken. All the risks and complications were explained in detail; this included the risk of bleeding, vascular damage, stroke , IA and even . The patient was draped and prepped in the usual sterile fashion. Access was gained in the right femoral artery with a 6 [place] sheath. Coronary angiography was performed with JR4 and JL4, left heart catheterization was performed with pigtail catheter. abdominal aortogram was performed with a pigtail catheter and selective renal angiogram was performed with a JR4 catheter. FINDINGS: 1.Left main: patent. 2.LAD: patent ostial LAD stent. Mild mid disease is noted which involves the ostium of the first diagonal artery. 3.Left circumflex artery: moderate mid left circumflex artery/OM1 disease which was negative by FFR one week ago. 4.RCA: known [employer] in the ostial segment with collaterals from the left coronary system. 5.Left heart catheterization: aortic pressure 130/65 mmHg. LV pressure 117/12 mmHg. LVEDP 20 mmHg. No gradient across the aortic valve. LV gram not done due to renal insufficiency. 6. Abdominal aortogram: No significant disease. 7. Selective bilateral renal angiogram: No significant bilateral renal disease. CONCLUSIONS: 1. Patent ostial LAD stent. Mild to moderate disease in the left coronary system. Known [employer] of ostial RCA with collaterals from the left coronary system. 2. Elevated LVEDP. Lasix IV 80 mg given. 3. No significant renal disease. Araceli Florentino MD, FACP, FACC, [facility] Interventional Cardiology Ignacio FLORENTINO MD Sep 17, 2017 11:39
[2017-09-17] MEDS ORDERED: methylPREDNISolone 40 MG/ML (Solu-MEDROL) VIAL IV SCH (12:00)
[2017-09-17] MEDS ORDERED: ROCURONIUM 50 MG/5 ML (ZEMURON) VIAL IV ONE (12:50)
[2017-09-17] MEDS ORDERED: MIDAZOLAM 5 MG/5 ML (VERSED) VIAL INJ ONE (12:50)
[2017-09-17] MEDS ORDERED: EPINEPHrine INJECTION 1 MG/ML AMP INJ ONE (12:50)
[2017-09-17] MEDS ORDERED: SUCCINYLCHOLINE INJ 100 MG/5 ML SYR INJ ONE (12:50)
[2017-09-17] MEDS ORDERED: NS 1000 ML IV BAG IV ONE (12:50)
[2017-09-17] MEDS ORDERED: ETOMIDATE IV SOLN 20 MG/10 ML VIAL IV ONE (12:50)
[2017-09-17 12:58] LABS: ABG BASE EXCESS -1.8 MMOL/L (-2.5-2.5); ABG OXYGEN SATURATION 99 % (94-100); ABG PCO2 53 MMHG (35-45); ABG PO2 135 MMHG (79-93); ABG TCO2 25.6 MMOL/L (21.0-31.0)
[2017-09-17 13:01] LABS: ABG PH 7.28 (7.37-7.43); ALLENS TEST YES-POS; INSPIRED O2 15; PATIENT TEMP 98.6; VENTILATOR NO
[2017-09-17] MEDS ORDERED: PROPOFOL DRIP (ICU) 100 ML IV ONE (13:05)
--- NOTE | 2017-09-17 13:07 | Pulmonary Progress Note ---
Standard Progress Note Progress Notes Date Seen by Provider: Sep 17, 2017 Time Seen by Provider: 13:05 Assessment & Plan Acute respiratory distress secondary to CHFAE -improved after lasix Acute diastolic CHF -Pulmonary status is much improved only requiring 2 liters of oxygen. renal function is worse. -Hold lasix -Cardiology is following and planning a heart cath today probable COPD -Pt smoked for 40yrs -He still complains of nonproductive cough and SOB -Continue SVNs -start Solumedrol 40 IV Q 6 -Pt may need home oxygen upon discharge NSTEMI Acute worsening renal failure -hold lasix -Will start IVF at 30cc/hr since pt is having a heart cath today went to patients room responding to CODE BLUE. Pt is s/p heart cath post procedure pt became bradycardic and went into PEA. Chest compressions were done and ACLS protocol was followed. Pt was intubated per anesthesia. Total ICU time with patient and medical team 45min. MARTHA HERNANDES DO Sep 17, 2017 13:07
[2017-09-17 13:22] LABS: BASOPHILS # (AUTO) 0.1 10^3/uL (0.0-0.1); BASOPHILS % (AUTO) 1 % (0-10); EOSINOPHILS # (AUTO) 0.1 10^3/uL (0.0-0.3); EOSINOPHILS % (AUTO) 1 % (0-10); HEMATOCRIT 56 % (40-54); HEMOGLOBIN 18.3 G/DL (13.3-17.7); LYMPHOCYTES # (AUTO) 4.3 X 10^3 (1.0-4.0); LYMPHOCYTES % (AUTO) 28 % (12-44); MEAN CORPUSCULAR HEMOGLOBIN 30 PG (25-34); MEAN CORPUSCULAR HGB CONC 33 G/DL (32-36); MEAN CORPUSCULAR VOLUME 90 FL (80-99); MEAN PLATELET VOLUME 10.2 FL (7.4-10.4); MONOCYTES # (AUTO) 0.1 X 10^3 (0.0-1.0); MONOCYTES % (AUTO) 0 % (0-12); NEUTROPHILS % (AUTO) 71 % (42-75); PLATELET COUNT 238 10^3/uL (130-400); RED BLOOD COUNT 6.17 10^6/uL (4.35-5.85); RED CELL DISTRIBUTION WIDTH 14.6 % (10.0-14.5); WHITE BLOOD COUNT 15.5 10^3/uL (4.3-11.0)
[2017-09-17] MEDS ORDERED: NOREPINEPHRINE 4 MG/4 ML (LEVOPHED) AMP IV ONE (13:27)
[2017-09-17] MEDS ORDERED: NS (IVPB) 250 ML ONE (13:29)
[2017-09-17 13:42] LABS: ALANINE AMINOTRANSFERASE 21 U/L (0-55); ALBUMIN 3.3 GM/DL (3.2-4.5); ALKALINE PHOSPHATASE 137 U/L (40-136); BILIRUBIN,TOTAL 0.4 MG/DL (0.1-1.0); BUN/CREATININE RATIO 19; CALCIUM 8.6 MG/DL (8.5-10.1); CARBON DIOXIDE 24 MMOL/L (21-32); CHLORIDE 97 MMOL/L (98-107); GFR ESTIMATED 51; GLUCOSE 330 MG/DL (70-105); MAGNESIUM 2.3 MG/DL (1.8-2.4); POTASSIUM 4.6 MMOL/L (3.6-5.0); SODIUM 133 MMOL/L (135-145); TOTAL PROTEIN 7.2 GM/DL (6.4-8.2); TRIGLYCERIDES 265 MG/DL (<150)
[2017-09-17] MEDS ORDERED: IOHEXOL 350 MG/ML 150 ML (OMNIPAQUE 350) VIAL IV ONE (13:45)
[2017-09-17] MEDS ORDERED: NS 250 ML (IVPB) BAG IV ONE (13:45)
[2017-09-17] MEDS ORDERED: BARIUM SUSPENSION 2.1% (REDI-CAT 2) 450 ML PO ONE (13:45)
[2017-09-17 13:46] LABS: BAND NEUTROPHILS 10 %; BASOPHILS % (MANUAL) 0 %; EOSINOPHILS % (MANUAL) 0 %; LYMPHOCYTES % (MANUAL) 33 %; MONOCYTES % (MANUAL) 1 %; MYELOCYTES % 2 %; NEUTROPHILS % (MANUAL) 54 %
[2017-09-17 13:47] LABS: RBC MORPH NORMAL
--- NOTE | 2017-09-17 13:54 | Diagnostic Imaging Report ---
INDICATION: Postcode, intubated. COMPARISON: 09/17/2017 FINDINGS: A single view of the chest demonstrates interval clearing of the right base. The heart is prominent without pulmonary edema. There is no pneumothorax or effusion. The ET tube and NG tube appear well-positioned. The location of the right IJ catheter is uncertain. The tip does cross the midline. Please correlate clinically. IMPRESSION: 1. Interval clearing of the right lung base. 2. No pulmonary edema or pneumothorax. 3. Well-positioned ET tube and NG tube. 4. Questionable position of the right IJ catheter. Report called to the patient's clinician by Dr. Weinstein prior to dictation. Dictated by: Dictated on workstation # [id number]
[2017-09-17 13:59] LABS: HEMOGLOBIN 15.4 G/DL (13.3-17.7)
[2017-09-17] MEDS ORDERED: RT-ALBUTEROL SULF 2.5 MG/3 ML PRE-MIX VIAL INH SCH (14:00)
[2017-09-17] MEDS ORDERED: RT-LEVALBUTEROL (XOPENEX) 1.25 MG/3 ML NEB NON-FORMULARY INH SCH (14:00)
[2017-09-17 14:03] LABS: ABG BASE EXCESS -2.2 MMOL/L (-2.5-2.5); ABG OXYGEN SATURATION 100 % (94-100); ABG PCO2 60 MMHG (35-45); ABG PO2 385 MMHG (79-93); ABG TCO2 26.4 MMOL/L (21.0-31.0)
[2017-09-17 14:05] LABS: ABG PH 7.23 (7.37-7.43)
[2017-09-17 14:06] LABS: ALLENS TEST YES-POS; INSPIRED O2 100%; PATIENT TEMP 96.9; VENTILATOR NO
--- NOTE | 2017-09-17 14:09 | Progress Note-Standard ---
Standard Progress Note Progress Notes/Assess & Plan Date Seen by Provider: Sep 17, 2017 Time Seen by Provider: 12:55 Progress/Assessment & Plan [id number]: Called to ICU 7 by overhead code blue alert. Upon arrival, chest compressions being delivered by RN et RT providing ventilation via ambu bag. Dr Mehta present in room running code. I attempted placement of 10 OA; however, patient thrusted it out with his tongue. Compressions stopped for pulse check et patient has sinus rhythm with palpable pulse. Patient started moving extremities and eventually begins mouthing that he can't breathe. SaOs 99% and RR of 18 per patient's own breathing. ER physician, Dr. Florentino, and Dr. Aguiar all present in ICU. Discussion of recent cath this am, patient had returned for about an hour when he coded. Decision made by Dr. Aguiar to place ett. Patient given 2mg Versed, 10 mg Propofol, and 100 mg Succs for intubation. Grade 4 view with MAC 3 blade; therefore, I switched to the Ahuja video laryngoscope and placed 8.0 ett with grade 1 view using the Ahuja. Atraumatic intubation and ett left at 23 cm at teeth. ETT secured by RT and vent settings per Dr. Aguiar. Pts. VSS at this time. Will be available for further consultation if needed. BLAIRE WEEKS CRNA Sep 17, 2017 14:09
--- NOTE | 2017-09-17 14:15 | Progress Note-Standard ---
Standard Progress Note Progress Notes/Assess & Plan Time Seen by Provider: 12:50 Progress/Assessment & Plan [id number]: Called to ICU 7 by overhead code blue alert. Upon arrival, chest compressions being delivered by RN et RT providing ventilation via ambu bag. Dr Mehta present in room running code. I attempted placement of 10 OA; however, patient thrusted it out with his tongue. Compressions stopped for pulse check et patient has sinus rhythm with palpable pulse. Patient started moving extremities and eventually begins mouthing that he can't breathe. SaOs 99% and RR of 18 per patient's own breathing. ER physician, Dr. Florentino, and Dr. Aguiar all present in ICU. Discussion of recent cath this am, patient had returned for about an hour when he coded. Decision made by Dr. Aguiar to place ett. Patient given 2mg Versed, 10 mg Propofol, and 100 mg Succs for intubation. Grade 4 view with MAC 3 blade; therefore, I switched to the Ahuja video laryngoscope and placed 8.0 ett with grade 1 view using the Ahuja. Atraumatic intubation and ett left at 23 cm at teeth. ETT secured by RT and vent settings/sedation per Dr. Aguiar. Pts. VSS at this time. Will be available for further consultation if needed. [id number]: I was called to place arterial line. On 2nd attempt, I placed a 20g arterial line in the patient's right wrist. Versed 3mg given prior to arterial line placement to assist with sedation as propofol was being held due to hypotension. BLAIRE WEEKS CRNA Sep 17, 2017 14:15
[2017-09-17 14:18] LABS: ABG BASE EXCESS -1.8 MMOL/L (-2.5-2.5); ABG OXYGEN SATURATION 100 % (94-100); ABG PCO2 68 MMHG (35-45); ABG PO2 371 MMHG (79-93); ABG TCO2 27.8 MMOL/L (21.0-31.0)
[2017-09-17 14:22] LABS: INSPIRED O2 100%; PATIENT TEMP 96.9; VENTILATOR YES
--- NOTE | 2017-09-17 14:45 | Pulmonary Procedures ---
Pulmonary Procedures Date of Procedure Date of Service: Sep 17, 2017 Lumen: triple (US guided ) Position: femoral (L) Anesthesia: Lidocaine Complications: none Post Position: sutured, good blood return, position confirmed w/ CXR MARTHA HERNANDES DO Sep 17, 2017 14:45
--- NOTE | 2017-09-17 14:53 | ED CPR ---
HPI-CPR General Chief Complaint: Respiratory Problems Stated Complaint: FLASH PULMONARY EDEMA,MAGLIGNANT HTN,ELEVATED Nursing Triage Note: c/o acute onset of SOA. Hx of recent of CT. Sepsis Screen: No Definite Risk History of Present Illness Date Seen by Provider: Sep 17, 2017 Time Seen by Provider: 12:40 Initial Comments Patient was in ICU 7 and a CODE BLUE was called. We responded to the call but by the time we got there Dr. Florentino, Dr. Mehta and ICU team had done 2 rounds of CPR. First pulse check showed PEA per Dr. Mehta, internal medicine and the second pulse check found a pulse. Epinephrine had not been given yet. Patient was not on pressors and had a pressure in the 90s to 100 systolic. Sats were okay heart rate was low 100. Patient had received about 500 cc of normal saline bolus. Dr. Florentino, cardiology noted the patient had had an NSTEMI last week and came back in with some chest pain and had another catheter recently in the last day or 2 showing a patent stent. He was concerned the patient may have had another coronary event so an EKG was obtained that did not show T-wave elevation or depression. Other concern was possible retroperitoneal bleed at the site of his femoral cardiac catheter insertion site. Patient's breathing was okay but he was complaining that he was short of breath using accessory muscles and not very well oriented so anesthesia dropped endotracheal tube. After that we offered to place a central line for fluids and possibly pressors. Patient has a history of heart failure with diastolic dysfunction and a bedside echo demonstrated global hypokinesis per cardiology at this time. Cardiology prefers using pressors versus fluids given concerns of heart failure history. Selected his right IJ for a site to be placed under ultrasound guidance. Allergies and Home Medications Allergies Coded Allergies: No Known Drug Allergies (Unverified , 02/07/13) Home Medications Amlodipine Besylate 5 Mg Tablet, 5 MG PO DAILY, (Reported) LAST FILLED #30 17 Aspirin 81 Mg Tab.chew, 81 MG PO DAILY for 30 Days, #30 Ref 3 Prescribed by: Ignacio FLORENTINO on 09/13/17 1302 Atorvastatin Calcium 40 Mg Tablet, 40 MG PO HS for 90 Days, #90 Ref 3 Prescribed by: Ignacio FLORENTINO on 09/13/17 1302 Cefdinir 300 Mg Capsule, 300 MG PO BID, #14 Prescribed by: MAURICIO OSEGUERA on 09/13/17 1239 Clopidogrel Bisulfate 75 Mg Tablet, 75 MG PO DAILY for 90 Days, #90 Ref 3 Prescribed by: Ignacio FLORENTINO on 09/13/17 1302 Gabapentin 300 Mg Capsule, 600 MG PO TID, #30 Prescribed by: MAURICIO OSEGUERA on 09/13/17 1232 Glyburide 2.5 Mg Tablet, 2.5 MG PO DAILY, #10 Prescribed by: MAURICIO OSEGUERA on 09/13/17 1232 Lisinopril 20 Mg Tablet, 20 MG PO DAILY for 90 Days, #90 Ref 3 Prescribed by: Ignacio FLORENTINO on 09/13/17 1302 Metformin HCl 500 Mg Tablet, 500 MG PO BID, #20 Prescribed by: MAURICIO OSEGUERA on 09/13/17 1232 Metoprolol Tartrate 50 Mg Tablet, 50 MG PO BID for 90 Days, #180 Ref 3 Prescribed by: Ignacio FLORENTINO on 09/13/17 1302 Oseltamivir Phosphate 30 Mg Capsule, 0 EACH PO BID for 2 Days Prescribed by: MAURICIO OSEGUERA on 09/13/17 1232 Prednisone 10 Mg Tab.ds.pk, 10 MG PO DAILY, #3 Prescribed by: MAURICIO OSEGUERA on 09/13/17 1232 Rivaroxaban 15 Mg Tablet, 15 MG PO DAILY for 30 Days, #30 Ref 4 Prescribed by: Ignacio FLORENTINO on 09/13/17 1302 Review of Systems Constitutional: No chills, No fever Musculoskeletal: No joint pain, No muscle pain Skin: No lesions, No rash Psychiatric/Neurological: Denies Headache, Denies Numbness, Denies Tingling Past Tuzesus-Inoxvf-Iswkgr Hx Patient Social History Alcohol Use: Denies Use Recreational Drug Use: Yes Drug of Choice: OCCASIONAL MARIJUANA USE Smoking Status: Current Everyday Smoker Type Used: Cigarettes, Electronic/Vapor Recent Foreign Travel: No Contact w/Someone Who Travel: No Recent Infectious Disease Expo: No Recent Hopitalizations: Yes (D/C FROM THIS FACILITY ON 09/13/17) Immunizations Up To Date Tetanus Booster (TDap): Unknown PED Vaccines UTD: No Date of Pneumonia Vaccine: Sep 09, 2014 Date of Influenza Vaccine: Sep 17, 2017 Seasonal Allergies Seasonal Allergies: No Surgeries History of Surgeries: Yes (HERNIA REPAIR) Respiratory History of Respiratory Disorde: Yes (HX OF CHF-RESP DISTRESS) Currently Using CPAP: No Currently Using BIPAP: No Cardiovascular History of Cardiac Disorders: Yes ("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CT") Cardiac Disorders: Heart Attack (NSTEMI 09/2017), High Cholesterol, Hypertension Neurological History of Neurological Disord: Yes (NEUROPATHY IN FEET) Neurological Disorders: Neuropathy Reproductive System Hx Reproductive Disorders: No Sexually Transmitted Disease: No HIV/AIDS: No Genitourinary History of Genitourinary Disor: Yes Genitourinary Disorders: Renal Failure Gastrointestinal History of Gastrointestinal Di: Yes (VENTRAL HERNIA) Gastrointestinal Disorders: Pancreatitis Musculoskeletal History of Musculoskeletal Dis: No Endocrine History of Endocrine Disorders: Yes Endocrine Disorders: Diabetes, Non-Insulin dep HEENT History of HEENT Disorders: No Cancer History of Cancer: No Psychosocial History of Psychiatric Problem: Yes Behavioral Health Disorders: Anxiety, Depression Integumentary History of Skin or Integumenta: No Blood Transfusions History of Blood Disorders: No Adverse Reaction to a Blood Tr: No Reviewed Nursing Assessment Reviewed/Agree w Nursing PMH: Yes Family Medical History Family Medial History: Diabetes mellitus 19 MOTHER G8 SISTER FH: lymphoma 19 FATHER Physical Exam Vital Signs Vital Signs - First Documented 09/15/17 09/15/17 01:25 01:55 Temp 96.9 Pulse 110 Resp 26 B/P (MAP) 219/124 (155) Pulse Ox 86 O2 Delivery Room Air O2 Flow Rate 100.00 Capillary Refill : Less Than 3 Seconds General Appearance: WD/WN, Severe Distress HEENT: Other (orotracheally intubated and OG tube in place.) Neck: Full Range of Motion, Normal Inspection, Supple Respiratory: Chest Non Tender, No Accessory Muscle Use, Decreased Breath Sounds , Wheezing (mild), Other (ET tube in place) Cardiovascular: Regular Rate, Rhythm, No Edema, No JVD Focused Exam Evaluation Lactate Level Laboratory Tests 09/15/17 02:47: Lactic Acid Level 1.65 Lactic Acid Level Laboratory Tests Test 09/15/17 02:47 Lactic Acid Level 1.65 MMOL/L (0.50-2.00) Lumen: triple Central Line Procedure: betadine prep (chlorhexidine prep was used prior to draping as well as prior to placing sterile dressing.), sterile drapes applied, sterile dressing applied Position: internal jugular (R) Anesthesia: Lidocaine (1% 2 cc) Volume Anesthetic (ccs): 2 Complications: intra-arterial catheterization Post Position: sutured, good blood return (nonpulsatile), position confirmed w / CXR ( dark red crosses midline concern for arterial insertion) Progress Patient site was selected and the patient was positioned appropriately cleaned with chlorhexidine preps and draped in the usual sterile fashion. 2 cc of 1% lidocaine were inserted in the we'll over the area where we would be inserting the central insertion needle. Using gown, mask, sterile gloves, headgear within used ultrasound guidance to find the compressible internal jugular vein and the 16-gauge needle was passed leaving the catheter behind. The wire easily passed and no ectopy was seen. Skin was then nicked using 11 blade scalpel after the insertion catheter was removed from the guide wire. A dilator was then passed over the guidewire and easily passed and removed. The triple-lumen central catheter that was previously flushed with sterile saline was then passed easily over the guidewire and imaging guidewire was removed with the central line being left at 13.5. The plastic guides were placed over the central catheter and sutured in place with 2 individual suture simple sutures with the provided suture. The sterile Biopatch was placed and then a sterile dressing was then placed in sterile fashion. Lines all easily kalpana and flushed. Bedside chest x- ray was obtained showing a good placement of the ET tube and difficult to tell where the tip of the central catheter was but as the patient's pressure was now taking and to the 60s but was still a palpable central pulse we decided to go ahead and use the central catheter to put fluids in him as well as the Levophed. The patient was under very light propofol sedation but appeared to tolerate the procedure well. Date of ETT Placement: Sep 17, 2017 Time of ETT Placement: 1255 Tube Size: 8.00 Progress/Results/Core Measures Results/Orders Lab Results Laboratory Tests Test 09/15/17 01:38 09/15/17 02:47 Range/Units White Blood Count 20.3 H 4.3-11.0 10^3/uL Red Blood Count 4.92 4.35-5.85 10^6/uL Hemoglobin 14.7 13.3-17.7 G/DL Hematocrit 45 40-54 % Mean Corpuscular Volume 91 80-99 FL Mean Corpuscular Hemoglobin 30 25-34 PG Mean Corpuscular Hemoglobin Concent 33 32-36 G/DL Red Cell Distribution Width 14.4 10.0-14.5 % Platelet Count 330 130-400 10^3/uL Mean Platelet Volume 10.2 7.4-10.4 FL Neutrophils (%) (Auto) 65 42-75 % Lymphocytes (%) (Auto) 25 12-44 % Monocytes (%) (Auto) 10 0-12 % Eosinophils (%) (Auto) 1 0-10 % Basophils (%) (Auto) 0 0-10 % Neutrophils # (Auto) 13.1 H 1.8-7.8 X 10^3 Lymphocytes # (Auto) 5.0 H 1.0-4.0 X 10^3 Monocytes # (Auto) 2.0 H 0.0-1.0 X 10^3 Eosinophils # (Auto) 0.1 0.0-0.3 10^3/uL Basophils # (Auto) 0.1 0.0-0.1 10^3/uL Neutrophils % (Manual) 62 % Lymphocytes % (Manual) 25 % Monocytes % (Manual) 7 % Eosinophils % (Manual) 2 % Basophils % (Manual) 0 % Band Neutrophils 0 % Reactive Lymphocytes 4 % Toxic Granulation 1+ Prothrombin Time 12.6 12.2-14.7 SEC INR Comment 0.9 0.8-1.4 Activated Partial Thromboplast Time 23 L 24-35 SEC Sodium Level 135 135-145 MMOL/L Potassium Level 4.3 3.6-5.0 MMOL/L Chloride Level 101 98-107 MMOL/L Carbon Dioxide Level 22 21-32 MMOL/L Anion Gap 12 5-14 MMOL/L Blood Urea Nitrogen 37 H 7-18 MG/DL Creatinine 1.31 H 0.60-1.30 MG/DL Estimat Glomerular Filtration Rate 55 BUN/Creatinine Ratio 28 Glucose Level 340 H 70-105 MG/DL Calcium Level 8.9 8.5-10.1 MG/DL Magnesium Level 2.5 H 1.8-2.4 MG/DL Total Bilirubin 0.4 0.1-1.0 MG/DL Aspartate Amino Transf (AST/SGOT) 25 5-34 U/L Alanine Aminotransferase (ALT/SGPT) 34 0-55 U/L Alkaline Phosphatase 87 40-136 U/L Myoglobin 77.3 10.0-92.0 NG/ML Troponin I 0.40 *H <0.30 NG/ML B-Type Natriuretic Peptide 958.4 H <100.0 PG/ML Total Protein 7.6 6.4-8.2 GM/DL Albumin 3.9 3.2-4.5 GM/DL Lactic Acid Level 1.65 0.50-2.00 MMOL/L Micro Results Microbiology 09/15/17 Blood Culture - Preliminary, Resulted No growth Vital Signs/I&O Vital Sign - Last 12Hours 09/15/17 09/15/17 09/15/17 09/15/17 01:25 01:30 01:50 01:50 Temp 96.9 96.9 Pulse 110 Resp 26 B/P (MAP) 219/124 (155) 219/124 Pulse Ox 86 94 O2 Delivery Room Air NIV Bilevel 09/15/17 09/15/17 09/15/17 09/15/17 01:55 02:04 02:05 02:07 Temp 96.9 96.9 Pulse 101 Resp 26 B/P (MAP) 219/124 Pulse Ox 100 O2 Flow Rate 100.00 09/15/17 02:08 B/P (MAP) 219/124 Blood Pressure Mean: 88 Point of Care Testing Finger Stick Blood Glucose: 258 Blood Glucose Action Taken: 10 UNITS REG. INSULIN ADMINISTERED PER SS ICU Progress Note : Time: 18:54 Progress Note When the line was placed there is no pulsatile flow of blood however blood pressure was low. There is some concern that the line may have made its way into the artery instead. We obtained an ABG off of this blood after the patient' s respiratory status had improved and his sats were back in the 90s. He Had had a long period of time where his sats were in the 80s which we speculated might be due to pneumothorax versus his emphysematous bleb disease worsening with positive pressure ventilation. No pneumothorax seen on x-ray. Equal lung sounds were heard. The ABG obtained was more acidic then the other 2 prior ABGs even though the patient status was improving. Oxygenation was fine. Because of the concern for an arterial cannulation we stopped using the line and switched to peripherals. The CT scan shows a flattened IVC which would go along with the patient's lung pressure improving once we finally got some fluids into him. The pressors did not make a lot of difference at the low rates we had initiated them. The primary physician team had mentioned that the patient is on diuretics secondary to his heart failure. Ultimately the patient was transferred to outside hospital per primary care team's direction. Diagnostic Imaging Diagonstic Imaging: Xray Plain Films/CT/US/NM/MRI: chest Comments VIA [facility]. [place], [place] NAME: [facility] REC#: [id number] PT STATUS: ADM IN : 1955 PHYSICIAN: MARTHA HERNANDES DO ADMIT DATE: 09/15/17/ICU Draft Date of Exam:09/17/17 CHEST 1 VIEW, AP/PA ONLY INDICATION: Possible pneumothorax. COMPARISON: 09/17/2017. FINDINGS: Single view of the chest demonstrates stable position of the support lines. The IJ catheter on the right is now right of midline. There is no pneumothorax, effusion, or infiltrate. The heart is stable. IMPRESSION: No pneumothorax identified. Dictated on workstation # [id number] Dict: 09/17/17 1438 Trans: 09/17/17 1451 [id number] Interpreted by: JENNIFER MCLEAN Electronically signed by: Time of Consult: 02:42 Diagonstic Imaging: CT Plain Films/CT/US/NM/MRI: chest, abdomen, pelvis (with contrast) Comments NAME: APRIL [facility] REC#: [id number] PHYSICIAN: YESSY BEAULIEU MD CC: GENIA PLASCENCIA MD; YESSY BEAULIEU Page 3 of 3 RADIOLOGY REPORT VIA [facility]. [place], [place] CC: GENIA PLASCENCIA MD; YESSY BEAULIEU Page 1 of 3 RADIOLOGY REPORT NAME: [facility] REC#: [id number] PT STATUS: ADM IN : 1955 PHYSICIAN: YESSY BEAULIEU MD ADMIT DATE: 09/15/17/ICU Signed Date of Exam: 09/17/17 CT ANGIO CHST/ABD/PELV W PROCEDURE: CT angiography of the chest with contrast and CT abdomen and pelvis with contrast. TECHNIQUE: Multiple contiguous axial images were obtained through the chest, abdomen and pelvis after administration of intravenous contrast. Reconstructed MIP CT angiography acquisitions of the aorta were then performed. INDICATION: Unresponsive. Evaluate for retroperitoneal bleed. COMPARISON: CT abdomen and pelvis from 04/12/2013. FINDINGS: The pulmonary arteries are diagnostic to the segmental level. No evidence of pulmonary embolism is seen. The thoracic aorta is suboptimally opacified; however, no dissection or aneurysm is seen. There is mild aortic atherosclerosis. Opacification of the aorta improves in the abdomen, and again the aorta demonstrates atherosclerosis, without significant stenosis, aneurysm or dissection. The branch vessels at the aortic arch are not well seen. The celiac trunk and the superior mesenteric artery are widely patent. The inferior mesenteric artery appears patent as well. There is marked atherosclerosis at the common iliac arteries bilaterally, with approximately 50% stenosis on the right, and 75% stenosis of the left. There is also atherosclerosis of the right external iliac artery, with approximately 50% stenosis (image 709 series 7). There is high-grade stenosis of the right internal iliac artery. The left external iliac artery also demonstrates approximately 50% stenosis. The left internal iliac artery demonstrates high-grade stenosis at the origin. There is moderate superficial and deep soft tissue edema in the right inguinal region, likely from recent catheterization. No extension is seen into the retroperitoneum. No drainable fluid collection is seen. There is a left femoral venous line. The lungs demonstrate emphysematous changes in the apices. There are small bilateral pleural effusions, right greater than left. There is associated atelectasis. There are scattered mildly prominent mediastinal lymph nodes, which are likely reactive. The heart is mildly large, with mild thickening of the left ventricular wall. No pericardial effusion is seen. The endotracheal tube is above the suzi. An enteric tube is in the stomach. The liver demonstrates no focal hepatic lesions. The spleen appears normal. Mild mesenteric edema is seen about the pancreas. Scattered mesenteric lymph nodes are seen, which are nonspecific. There is minimal fat stranding adjacent to the gallbladder. The adrenal glands appear normal. There is mild perirenal stranding bilaterally. No hydronephrosis is seen. No focal renal masses are identified. The IVC is flattened. No significant free air or free fluid is seen in the abdomen. There is a fat-containing ventral hernia, status post mesh repair. The appendix appears normal. Marked stool is seen at the sigmoid colon and rectum. There is sigmoid diverticulosis without diverticulitis. A Mota catheter is present in the urinary bladder, with air as well. The bladder is decompressed. No acute osseous abnormality is seen. IMPRESSION: 1. Superficial and deep soft tissue edema in the right inguinal region from recent catheterization. No loculated fluid collections or retroperitoneal hemorrhage is seen. 2. Moderate abdominal aortic atherosclerosis with areas of stenosis in the bilateral iliac arteries. The thoracic aorta is suboptimally evaluated, but no acute abnormality is seen. 3. Small bilateral pleural effusions, right greater than left. 4. Mild cardiomegaly with mildly thickened left ventricular wall. 5. Mild edema about the pancreas and the gallbladder. This is likely nonspecific mesenteric edema; however, recommend correlation with liver function tests and lipase. 6. Marked stool in the sigmoid colon and rectum, please correlate with history of impaction. There is colonic diverticulosis. 7. Flattening of the IVC, can be seen with hypovolemia. Dictated by: Dictated on workstation # [id number] Dict: 09/17/17 1536 Trans: 09/17/17 1708 Interpreted by: GENIA PLASCENCIA MD Electronically signed by: GENIA PLASCENCIA MD 09/17/17 1708 Reviewed: Reviewed by [place] Critical Care Note Critical Care Start Time: 12:40 Stop Time: 14:30 Total Time (minutes) 110 Progress Patient's blood pressure did not improve until the Levophed was on 20 and he had received about 2 L total volume since the time of his code. Once his pressure had improved his blood in the central line was noted to be bright red and was switched over to the arterial pressure monitoring system and 0 and found to have a similar blood pressure of 105 mmHg to a blood pressure cuff. We immediately discontinue the Levothroid and fluids to the central line flushed and capped it. He has an arterial line in his right wrist placed by anesthesia. Departure Impression Impression: Primary Impression: Flash pulmonary edema Additional Impressions: Malignant hypertension Elevated troponin Disposition: ADMITTED INPATIENT Condition: Stable Admissions Decision to Admit Reason: Admit from ER (General) Decision to Admit/Date: Sep 15, 2017 Time/Decision to Admit Time: 02:42 Departure-Patient Inst. Referrals: REED MOFFETT (PCP) Primary Care Physician YESSY BEAULIEU Sep 17, 2017 14:53
--- NOTE | 2017-09-17 15:32 | Diagnostic Imaging Report ---
PROCEDURE: CT head without contrast. TECHNIQUE: Multiple contiguous axial images were obtained through the brain without the use of intravenous contrast. INDICATION: Hypertension, loss of consciousness. The ventricles are normal in size, shape and position. There are no masses or hemorrhages. There are no extra-axial fluid collections. IMPRESSION: Negative CT head. Dictated by: Dictated on workstation # [id number]
--- NOTE | 2017-09-17 15:47 | Discharge Summary-Hospitalist ---
Diagnosis/Chief Complaint Date of Admission Sep 15, 2017 at 2:50 am Date of Discharge Discharge Date: Sep 17, 2017 Admission Diagnosis acute respiratory distress Discharge Diagnosis acute resp distress (1) Cardiac arrest Status: Acute Assessment & Plan: Following cath PEA arrest- no shockable rhythm noted ROSC obtained after second pulse check, in sinus rhythm Plan to transfer to higher level of care for therapeutic hypothermia and vascular surgery consult for central line malplacement (2) Diastolic heart failure Assessment & Plan: Negative 9L since admission and weight down 7kg Creatinine up so Lasix DC'd today Still on supplemental oxygen Cardiology consulted, appreciate recs (3) Elevated troponin Status: Acute Assessment & Plan: Now trending down Cardiology consulted, appreciate recs Flask Handler 1.4 today- will defer to cardiology if they still wanted to cath today (4) Hypertensive emergency Status: Resolved Assessment & Plan: Likely cause of pulm edema Renal did not visualize renal arteries well Continue on current antihypertensives as well controlled (5) Acute respiratory distress Assessment & Plan: Due to flash pulmonary edema Off BiPAP and on 2lpm NC Pulm, consulted, appreciate recs (6) Leukocytosis Assessment & Plan: Likely reactive but trending up Blood cultures NGTD (7) CAD (coronary artery disease) Assessment & Plan: Recent NSTEMI with stent placement Concern for stent thrombosis given rising troponin Had planned for Cath today but will defer to cardiology with creatinine at 1.4 Continue ASA, plavix and statin (8) Non-insulin dependent type 2 diabetes mellitus Assessment & Plan: On metformin and glyburide as outpatient Resume glyburide but hold metformin for planned cath SSI A1c 11.8 (9) Discharge planning issues Assessment & Plan: Has no insurance but reports medications were filled at [facility] pharmacy despite not having seen them Called pharmacy and he has 30 day rx for metoprolol, Plavix, Lipitor, lisinopril waiting for him with 10d supply of Metformin and glyburide and 5 day supply of gabapentin Will discussed with [facility] providers to see if valid prescriptions and if they can be filled Per Dr Alvarez at [facility]- medications were filled at there pharmacy and can be picked up on discharge (10) Prophylactic measure Assessment & Plan: Xarelto NS at 50ml/hr Low Na diet, fluid restriction Discharge Summary Consultations Dr Stefania Florentino Discharge Physical Examination Allergies: Coded Allergies: No Known Drug Allergies (Unverified , 7/1/13) Vitals & I&Os Vital Signs Date Time Temp Pulse Resp B/P (MAP) Pulse Ox O2 Delivery O2 Flow Rate FiO2 09/17/17 14:25 84 16 94 100 09/17/17 13:18 Mechanical Ventilator 80.00 09/17/17 11:35 120/72 (88) 09/17/17 11:20 98.2 Hospital Course Pt was admitted to the hospital for acute respiratory distress due to flash pulmonary edema. He was recently admitted lsat week for NSTEMI with stent placement. He returned 2 days after discharge for respiratory distress. He was admitted to the ICU for BiPAP and diuresis. He was found to have an elevated troponin and was unclear on what medications he was able to receive so was taken to the catheter finisher and inspector for evaluate of stent thrombosis on 09/17. Shortly after his cath was done he was speaking with his nurse when he suddenly became altered and shortly after that was pulseless. He underwent CPR with high quality chest compressions per ACLS protocol for 4 minutes. On second pulse check he was found to have ROSC. He was intubated by anesthesia for airway protection. He was then found to be hypotensive and he was bolused 1L while central line was placed. Central line was placed and appeared to be inadvertently placed in the carotid. Femoral Line was then placed. I discussed the patient with Dr. Tse at [facility] in [place] who accepted patient for transfer and will consult Vascular Surgery for evaluation of central line. Labs (last 24 hrs) Laboratory Tests 09/16/17 18:09: Glucometer 253H 09/16/17 23:46: Glucometer 407*H 09/17/17 04:45: White Blood Count 14.5H, Red Blood Count 5.18, Hemoglobin 15.3, Hematocrit 46, Mean Corpuscular Volume 89, Mean Corpuscular Hemoglobin 30, Mean Corpuscular Hemoglobin Concent 33, Red Cell Distribution Width 14.2, Platelet Count 285, Mean Platelet Volume 10.0, Neutrophils (%) (Auto) 75, Lymphocytes (%) (Auto) 16 , Monocytes (%) (Auto) 7, Eosinophils (%) (Auto) 2, Basophils (%) (Auto) 0, Neutrophils # (Auto) 10.8H, Lymphocytes # (Auto) 2.3, Monocytes # (Auto) 1.1H, Eosinophils # (Auto) 0.3, Basophils # (Auto) 0.0, Sodium Level 139, Potassium Level 3.9, Chloride Level 95L, Carbon Dioxide Level 33H, Anion Gap 11, Blood Urea Nitrogen 31H, Creatinine 1.44H, Estimat Glomerular Filtration Rate 50, BUN/ Creatinine Ratio 22, Glucose Level 258H, Calcium Level 9.5, Phosphorus Level 4.1 , Magnesium Level 2.3 09/17/17 12:26: Glucometer 344H 09/17/17 12:50: Blood Gas Puncture Site RT RAD, Blood Gas Patient Temperature 98.6, Arterial Blood pH 7.28*L, Arterial Blood Partial Pressure CO2 53H, Arterial Blood Partial Pressure O2 135H, Arterial Blood HCO3 24, Arterial Blood Total CO2 25.6 , Arterial Blood Oxygen Saturation 99, Arterial Blood Base Excess -1.8, Al Test YES-POS, Blood Gas Ventilator Setting NO, Blood Gas Inspired Oxygen 15 09/17/17 13:14: White Blood Count 15.5H, Red Blood Count 6.17H, Hemoglobin 18.3H, Hematocrit 56H , Mean Corpuscular Volume 90, Mean Corpuscular Hemoglobin 30, Mean Corpuscular Hemoglobin Concent 33, Red Cell Distribution Width 14.6H, Platelet Count 238, Mean Platelet Volume 10.2, Neutrophils (%) (Auto) 71, Lymphocytes (%) (Auto) 28 , Monocytes (%) (Auto) 0, Eosinophils (%) (Auto) 1, Basophils (%) (Auto) 1, Neutrophils # (Auto) 11.0H, Lymphocytes # (Auto) 4.3H, Monocytes # (Auto) 0.1, Eosinophils # (Auto) 0.1, Basophils # (Auto) 0.1, Neutrophils % (Manual) 54, Lymphocytes % (Manual) 33, Monocytes % (Manual) 1, Eosinophils % (Manual) 0, Basophils % (Manual) 0, Myelocytes % 2, Band Neutrophils 10, Blood Morphology Comment NORMAL, Sodium Level 133L, Potassium Level 4.6, Chloride Level 97L, Carbon Dioxide Level 24, Anion Gap 12, Blood Urea Nitrogen 26H, Creatinine 1.40H , Estimat Glomerular Filtration Rate 51, BUN/Creatinine Ratio 19, Glucose Level 330H, Calcium Level 8.6, Magnesium Level 2.3, Total Bilirubin 0.4, Aspartate Amino Transf (AST/SGOT) 25, Alanine Aminotransferase (ALT/SGPT) 21, Alkaline Phosphatase 137H, Troponin I < 0.30, Total Protein 7.2, Albumin 3.3, Triglycerides Level 265H 09/17/17 13:32: Lab Scanned Report Transfusion Reaction Form 09/17/17 13:48: Hemoglobin 15.4, Hematocrit 47 09/17/17 13:58: Blood Gas Puncture Site RT RADIAL, Blood Gas Patient Temperature 96.9, Arterial Blood pH 7.23*L, Arterial Blood Partial Pressure CO2 60H, Arterial Blood Partial Pressure O2 385H, Arterial Blood HCO3 25, Arterial Blood Total CO2 26.4 , Arterial Blood Oxygen Saturation 100, Arterial Blood Base Excess -2.2, Al Test YES-POS, Blood Gas Ventilator Setting NO, Blood Gas Inspired Oxygen 100% 09/17/17 14:10: Blood Gas Puncture Site RT SUBCLAVIAN CL ART, Blood Gas Patient Temperature 96.9 , Arterial Blood pH 7.20*L, Arterial Blood Partial Pressure CO2 68H, Arterial Blood Partial Pressure O2 371H, Arterial Blood HCO3 26, Arterial Blood Total CO2 27.8, Arterial Blood Oxygen Saturation 100, Arterial Blood Base Excess -1.8 , Al Test NA, Blood Gas Ventilator Setting YES, Blood Gas Inspired Oxygen 100 % Microbiology 09/15/17 Blood Culture - Preliminary, Resulted No growth 09/15/17 MRSA Screen - Final, Complete MRSA not isolated Pending Labs Laboratory Tests 09/17/17 12:26: Glucometer 344 09/17/17 12:50: Blood Gas Puncture Site RT RAD, Blood Gas Patient Temperature 98.6, Arterial Blood pH 7.28, Arterial Blood Partial Pressure CO2 53, Arterial Blood Partial Pressure O2 135, Arterial Blood HCO3 24, Arterial Blood Total CO2 25.6, Arterial Blood Oxygen Saturation 99, Arterial Blood Base Excess -1.8, Al Test YES-POS, Blood Gas Ventilator Setting NO, Blood Gas Inspired Oxygen 15 09/17/17 13:14: White Blood Count 15.5, Red Blood Count 6.17, Hemoglobin 18.3, Hematocrit 56, Mean Corpuscular Volume 90, Mean Corpuscular Hemoglobin 30, Mean Corpuscular Hemoglobin Concent 33, Red Cell Distribution Width 14.6, Platelet Count 238, Mean Platelet Volume 10.2, Neutrophils (%) (Auto) 71, Lymphocytes (%) (Auto) 28 , Monocytes (%) (Auto) 0, Eosinophils (%) (Auto) 1, Basophils (%) (Auto) 1, Neutrophils # (Auto) 11.0, Lymphocytes # (Auto) 4.3, Monocytes # (Auto) 0.1, Eosinophils # (Auto) 0.1, Basophils # (Auto) 0.1, Neutrophils % (Manual) 54, Lymphocytes % (Manual) 33, Monocytes % (Manual) 1, Eosinophils % (Manual) 0, Basophils % (Manual) 0, Myelocytes % 2, Band Neutrophils 10, Blood Morphology Comment NORMAL, Sodium Level 133, Potassium Level 4.6, Chloride Level 97, Carbon Dioxide Level 24, Anion Gap 12, Blood Urea Nitrogen 26, Creatinine 1.40, Estimat Glomerular Filtration Rate 51, BUN/Creatinine Ratio 19, Glucose Level 330, Calcium Level 8.6, Magnesium Level 2.3, Total Bilirubin 0.4, Aspartate Amino Transf (AST/SGOT) 25, Alanine Aminotransferase (ALT/SGPT) 21, Alkaline Phosphatase 137, Troponin I < 0.30, Total Protein 7.2, Albumin 3.3, Triglycerides Level 265 09/17/17 13:32: Lab Scanned Report Transfusion Reaction Form 09/17/17 13:48: Hemoglobin 15.4, Hematocrit 47 09/17/17 13:58: Blood Gas Puncture Site RT RADIAL, Blood Gas Patient Temperature 96.9, Arterial Blood pH 7.23, Arterial Blood Partial Pressure CO2 60, Arterial Blood Partial Pressure O2 385, Arterial Blood HCO3 25, Arterial Blood Total CO2 26.4, Arterial Blood Oxygen Saturation 100, Arterial Blood Base Excess -2.2, Al Test YES-POS, Blood Gas Ventilator Setting NO, Blood Gas Inspired Oxygen 100% 09/17/17 14:10: Blood Gas Puncture Site RT SUBCLAVIAN CL ART, Blood Gas Patient Temperature 96.9 , Arterial Blood pH 7.20, Arterial Blood Partial Pressure CO2 68, Arterial Blood Partial Pressure O2 371, Arterial Blood HCO3 26, Arterial Blood Total CO2 27.8, Arterial Blood Oxygen Saturation 100, Arterial Blood Base Excess -1.8, Al Test NA, Blood Gas Ventilator Setting YES, Blood Gas Inspired Oxygen 100% Discharge Home Medications: Active Scripts Active Aspirin 81 Mg Tab.chew 81 Mg PO DAILY 30 Days Lisinopril 20 Mg Tablet 20 Mg PO DAILY 90 Days Metoprolol Tartrate 50 Mg Tablet 50 Mg PO BID 90 Days Lipitor (Atorvastatin Calcium) 40 Mg Tablet 40 Mg PO HS 90 Days Clopidogrel (Clopidogrel Bisulfate) 75 Mg Tablet 75 Mg PO DAILY 90 Days Xarelto (Rivaroxaban) 15 Mg Tablet 15 Mg PO DAILY 30 Days Cefdinir 300 Mg Capsule 300 Mg PO BID Prednisone 10 Mg Tab.ds.pk 10 Mg PO DAILY Glyburide 2.5 Mg Tablet 2.5 Mg PO DAILY Metformin HCl 500 Mg Tablet 500 Mg PO BID Tamiflu (Oseltamivir Phosphate) 30 Mg Capsule 0 Each PO BID 2 Days Gabapentin 300 Mg Capsule 600 Mg PO TID Reported Amlodipine Besylate 5 Mg Tablet 5 Mg PO DAILY LAST FILLED #30 04-02- Instructions to patient/family Please see electronic discharge instructions given to patient. Clinical Quality Measures DVT/VTE Risk/Contraindication: Risk Factor Score Per Nursin RFS Level Per Nursing on Admit: 4+=Very High Copy Copies To 1: [facility] [place]; PAYTON PALACIOS MD Problem Qualifiers (1) Diastolic heart failure: Heart failure chronicity: acute Qualified Codes: I50.31 - Acute diastolic ( congestive) heart failure (2) CAD (coronary artery disease): Coronary Disease-Associated Artery/Lesion type: [place] artery [place] vs. transplanted heart: [place] heart Associated angina: without angina Qualified Codes: I25.10 - Atherosclerotic heart disease of [place] coronary artery without angina pectoris COCO LAZO MD Sep 17, 2017 3:47 pm
--- NOTE | 2017-09-17 16:03 | Diagnostic Imaging Report ---
PROCEDURE: CT angiography of the chest with contrast and CT abdomen and pelvis with contrast. TECHNIQUE: Multiple contiguous axial images were obtained through the chest, abdomen and pelvis after administration of intravenous contrast. Reconstructed MIP CT angiography acquisitions of the aorta were then performed. INDICATION: Unresponsive. Evaluate for retroperitoneal bleed. COMPARISON: CT abdomen and pelvis from 04/12/2013. FINDINGS: The pulmonary arteries are diagnostic to the segmental level. No evidence of pulmonary embolism is seen. The thoracic aorta is suboptimally opacified; however, no dissection or aneurysm is seen. There is mild aortic atherosclerosis. Opacification of the aorta improves in the abdomen, and again the aorta demonstrates atherosclerosis, without significant stenosis, aneurysm or dissection. The branch vessels at the aortic arch are not well seen. The celiac trunk and the superior mesenteric artery are widely patent. The inferior mesenteric artery appears patent as well. There is marked atherosclerosis at the common iliac arteries bilaterally, with approximately 50% stenosis on the right, and 75% stenosis of the left. There is also atherosclerosis of the right external iliac artery, with approximately 50% stenosis (image [id number] series 7). There is high-grade stenosis of the right internal iliac artery. The left external iliac artery also demonstrates approximately 50% stenosis. The left internal iliac artery demonstrates high-grade stenosis at the origin. There is moderate superficial and deep soft tissue edema in the right inguinal region, likely from recent catheterization. No extension is seen into the retroperitoneum. No drainable fluid collection is seen. There is a left femoral venous line. The lungs demonstrate emphysematous changes in the apices. There are small bilateral pleural effusions, right greater than left. There is associated atelectasis. There are scattered mildly prominent mediastinal lymph nodes, which are likely reactive. The heart is mildly large, with mild thickening of the left ventricular wall. No pericardial effusion is seen. The endotracheal tube is above the suzi. An enteric tube is in the stomach. The liver demonstrates no focal hepatic lesions. The spleen appears normal. Mild mesenteric edema is seen about the pancreas. Scattered mesenteric lymph nodes are seen, which are nonspecific. There is minimal fat stranding adjacent to the gallbladder. The adrenal glands appear normal. There is mild perirenal stranding bilaterally. No hydronephrosis is seen. No focal renal masses are identified. The IVC is flattened. No significant free air or free fluid is seen in the abdomen. There is a fat-containing ventral hernia, status post mesh repair. The appendix appears normal. Marked stool is seen at the sigmoid colon and rectum. There is sigmoid diverticulosis without diverticulitis. A Mota catheter is present in the urinary bladder, with air as well. The bladder is decompressed. No acute osseous abnormality is seen. IMPRESSION: 1. Superficial and deep soft tissue edema in the right inguinal region from recent catheterization. No loculated fluid collections or retroperitoneal hemorrhage is seen. 2. Moderate abdominal aortic atherosclerosis with areas of stenosis in the bilateral iliac arteries. The thoracic aorta is suboptimally evaluated, but no acute abnormality is seen. 3. Small bilateral pleural effusions, right greater than left. 4. Mild cardiomegaly with mildly thickened left ventricular wall. 5. Mild edema about the pancreas and the gallbladder. This is likely nonspecific mesenteric edema; however, recommend correlation with liver function tests and lipase. 6. Marked stool in the sigmoid colon and rectum, please correlate with history of impaction. There is colonic diverticulosis. 7. Flattening of the IVC, can be seen with hypovolemia. Dictated by: Dictated on workstation # [id number]
--- NOTE | 2017-09-17 16:09 | Cardiology Progress Note ---
A/P-Cardiology Assessment/Admission Diagnosis PEA arrest acute diastolic congestive heart failure, Severe respiratory distress, Leukocytosis, Non-ST elevation [place], Acute kidney injury, Diabetes, Active smoking, severe Hypertension Plan PEA arrest - brief CPR followed by ROSC. Intubated and ventilated. Arterial line placed right radial. Started on levophed. Systolic BP > 120mmhg. Inadvertent placement of a neck central line in the carotid artery (Right sided) . Not being used. Bedside Echo just after CPR showed EF of 20% with global hypokinesis. Repeat Echo an hour later showed EF 40%. No tamponade. Normal RV. CT head did not reveal any abnormality. CT chest, abdomen, pelvis - official read pending. However preliminary shows no PE, aortic dissection or retroperitoneal bleed. Cath earlier today showed patent stent in the proximal LAD. 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 No renal disease. LVEDP 20mmhg. EKG just after CPR showed Sinus rhythm with no ST changes. Labs show no change in Hb and Hct. No change in Creatinine. Ignacio CID MD Sep 17, 2017 4:09 pm
== END 2017-09-17 16:35 | disposition short-term general hospital (02) | DRG 280 ==
LOC: EDUNIT# 01:25 → ER 01:27 → ICU 02:50
PROVIDERS: ADMIT Family Medicine; ATTEND Family Medicine
PROC: 4A023N7 Measurement of Cardiac Sampling and Pressure, Left Heart, Percutaneous Approach (ICD-10-PCS; principal; 2017-09-17)
PROC: B2111ZZ Fluoroscopy of Multiple Coronary Arteries using Low Osmolar Contrast (ICD-10-PCS; 2017-09-17)
PROC: B4101ZZ Fluoroscopy of Abdominal Aorta using Low Osmolar Contrast (ICD-10-PCS; 2017-09-17)
PROC: B4181ZZ Fluoroscopy of Bilateral Renal Arteries using Low Osmolar Contrast (ICD-10-PCS; 2017-09-17)
PROC: 5A1935Z Respiratory Ventilation, Less than 24 Consecutive Hours (ICD-10-PCS; 2017-09-17)
DX: I13.0 Hypertensive heart and chronic kidney disease with heart failure and stage 1 through stage 4 chronic kidney disease, or unspecified chronic kidney disease (principal); I50.31 Acute diastolic (congestive) heart failure; I21.4 Non-ST elevation (NSTEMI) myocardial infarction; I16.1 Hypertensive emergency; N17.9 Acute kidney failure, unspecified; N18.9 Chronic kidney disease, unspecified; I48.0 Paroxysmal atrial fibrillation; E11.9 Type 2 diabetes mellitus without complications; G57.93 Unspecified mononeuropathy of bilateral lower limbs; I25.10 Atherosclerotic heart disease of native coronary artery without angina pectoris; F41.9 Anxiety disorder, unspecified; F32.9 Major depressive disorder, single episode, unspecified; F17.210 Nicotine dependence, cigarettes, uncomplicated; Z95.5 Presence of coronary angioplasty implant and graft; J44.9 Chronic obstructive pulmonary disease, unspecified; I25.82 Chronic total occlusion of coronary artery; Z23 Encounter for immunization
CPT/HCPCS: 36252; 36415; 70450; 71045; 71275; 74174; 75625; 80048; 80053; 80061; 82805; 82962; 83605; 83735; 83874; 83880; 84100; 84478; 84484; 85007; 85014; 85018; 85025; 85027; 85610; 85730; 87040; 87070; 87081; 87205; 93005; 93041; 93306; 93308; 93458; 93975; 94002; 94640; 94660; 96365; 96366; 96375

== ENCOUNTER 2017-10-11 17:55 | Emergency (ER) | payer SELFPAY ==
[~2017-10-11] VITALS: Ht 177.8 cm; Wt 9.1 kg
[2017-10-11] MEDS ORDERED: NS IV 1000 ML 1,000 ML IV SCH (19:13)
--- NOTE | 2017-10-11 19:14 | ED Respiratory ---
General Chief Complaint: Respiratory Problems Stated Complaint: "DOESN'T FEEL GOOD"/BREATHING ISSUES Nursing Triage Note: generalized weakness over all not feeling well. pt verbalized sob with exertion History of Present Illness Date Seen by Provider: Oct 11, 2017 Time Seen by Provider: 19:00 Initial Comments 61-year-old male patient reports generalized weakness today. He reports that he did not feel good this morning so he took none of his medications. His sister came over at 1600 and got him his morning medications. He has a significant history of health problems during the month of September including lash pulmonary edema, respiratory distress and cardiac arrest. He was admitted here and then had to be shipped to [facility] in [place], [place]. He has been home for the last 3 weeks doing well overall. He reports taking all medications as prescribed. He reports fatigue today and dysuria. Timing/Duration: this morning Prior Episodes/Possible Cause: occasional episodes Associated Symptoms: denies symptoms Allergies and Home Medications Allergies Coded Allergies: No Known Drug Allergies (Unverified , 02/07/13) Home Medications Amlodipine Besylate 5 Mg Tablet, 5 MG PO DAILY, (Reported) LAST FILLED #30 04-02-17 Aspirin 81 Mg Tab.chew, 81 MG PO DAILY Prescribed by: Ignacio CID on 09/13/17 1302 Atorvastatin Calcium 40 Mg Tablet, 40 MG PO HS Prescribed by: Ignacio CID on 09/13/17 1302 Cefdinir 300 Mg Capsule, 300 MG PO BID Prescribed by: MAURICIO OSEGUERA on 09/13/17 1239 Ciprofloxacin HCl 500 Mg Tablet, 500 MG PO BID Prescribed by: FABRICE NELSON on 10/11/172021 Clopidogrel Bisulfate 75 Mg Tablet, 75 MG PO DAILY Prescribed by: Ignacio CID on 09/13/17 1302 Gabapentin 300 Mg Capsule, 600 MG PO TID Prescribed by: MAURICIO OSEGUERA on 09/13/17 1232 Glyburide 2.5 Mg Tablet, 2.5 MG PO DAILY Prescribed by: MAURICIO OSEGUERA on 09/13/17 1232 Lisinopril 20 Mg Tablet, 20 MG PO DAILY Prescribed by: Ignacio CID on 09/13/17 1302 Metformin HCl 500 Mg Tablet, 500 MG PO BID Prescribed by: MAURICIO OSEGUERA on 09/13/17 1232 Metoprolol Tartrate 50 Mg Tablet, 50 MG PO BID Prescribed by: Ignacio CID on 09/13/17 1302 Oseltamivir Phosphate 30 Mg Capsule, 0 EACH PO BID Prescribed by: MAURICIO OSEGUERA on 09/13/17 1232 Prednisone 10 Mg Tab.ds.pk, 10 MG PO DAILY Prescribed by: MAURICIO OSEGUERA on 09/13/17 1232 Rivaroxaban 15 Mg Tablet, 15 MG PO DAILY Prescribed by: Ignacio CID on 09/13/17 1302 Patient Home Medication List Home Medication List Reviewed: Yes Constitutional: no symptoms reported, malaise, weakness Genitourinary: see HPI, dysuria Past Rmaawpi-Ootemh-Dllwmm Hx Patient Social History Drug of Choice: OCCASIONAL MARIJUANA USE Type Used: Cigarettes, Electronic/Vapor Recent Foreign Travel: No Contact w/Someone Who Travel: No Recent Infectious Disease Expo: No Recent Hopitalizations: Yes (D/C FROM THIS FACILITY ON 09/13/17) Immunizations Up To Date Tetanus Booster (TDap): Unknown PED Vaccines UTD: No Date of Pneumonia Vaccine: Sep 09, 2014 Date of Influenza Vaccine: Sep 17, 2017 Seasonal Allergies Seasonal Allergies: No Surgeries History of Surgeries: Yes (HERNIA REPAIR) Respiratory History of Respiratory Disorde: Yes (HX OF CHF-RESP DISTRESS) Currently Using CPAP: No Currently Using BIPAP: No Cardiovascular History of Cardiac Disorders: Yes ("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[place]") Cardiac Disorders: Heart Attack, High Cholesterol, Hypertension Neurological History of Neurological Disord: Yes (NEUROPATHY IN FEET) Neurological Disorders: Neuropathy Reproductive System Hx Reproductive Disorders: No Sexually Transmitted Disease: No HIV/AIDS: No Genitourinary History of Genitourinary Disor: Yes Genitourinary Disorders: Renal Failure Gastrointestinal History of Gastrointestinal Di: Yes (VENTRAL HERNIA) Gastrointestinal Disorders: Pancreatitis Musculoskeletal History of Musculoskeletal Dis: No Endocrine History of Endocrine Disorders: Yes Endocrine Disorders: Diabetes, Non-Insulin dep HEENT History of HEENT Disorders: No Cancer History of Cancer: No Psychosocial History of Psychiatric Problem: Yes Behavioral Health Disorders: Anxiety, Depression Integumentary History of Skin or Integumenta: No Blood Transfusions History of Blood Disorders: No Adverse Reaction to a Blood Tr: No Reviewed Nursing Assessment Reviewed/Agree w Nursing PMH: Yes Family Medical History Family Medial History: Diabetes mellitus 19 MOTHER G8 SISTER FH: lymphoma 19 FATHER Physical Exam Vital Signs Vital Signs - First Documented 10/11/17 18:14 Temp 98.9 Pulse 95 Resp 20 B/P (MAP) 142/71 (94) Pulse Ox 95 O2 Delivery Room Air Capillary Refill : Less Than 3 Seconds General Appearance: WD/WN, no apparent distress Eyes: Bilateral Eye Normal Inspection, Bilateral Eye PERRL, Bilateral Eye EOMI HEENT: PERRL/EOMI, normal ENT inspection, TMs normal, pharynx normal Neck: non-tender, full range of motion, supple, normal inspection Respiratory: chest non-tender, lungs clear, normal breath sounds Cardiovascular: normal peripheral pulses, regular rate, rhythm Gastrointestinal: normal bowel sounds, non tender, soft, other (no CVAT) Neurologic/Psychiatric: no motor/sensory deficits, alert, normal mood/affect, oriented x 3 Skin: normal color, warm/dry Date of ETT Placement: Sep 17, 2017 Time of ETT Placement: 1255 Progress/Results/Core Measures Suspected Sepsis Recent Fever Within 48 Hours: No Infection Criteria Present: None New/Unexplained Altered Menta: No Sepsis Screen: No Definite Risk Sepsis Diagnosis: SIRS Temperature:98.9 Pulse: 95 Respiratory Rate: 20 Laboratory Tests 10/11/17 19:30: White Blood Count 19.7H Blood Pressure 142 /71 Mean: 94 Laboratory Tests 10/11/17 19:30: Creatinine 1.33H, Platelet Count 209, Total Bilirubin 0.8 Results/Orders Lab Results Laboratory Tests Test 10/11/17 19:30 Range/Units White Blood Count 19.7 H 4.3-11.0 10^3/uL Red Blood Count 4.46 4.35-5.85 10^6/uL Hemoglobin 13.3 13.3-17.7 G/DL Hematocrit 40 40-54 % Mean Corpuscular Volume 90 80-99 FL Mean Corpuscular Hemoglobin 30 25-34 PG Mean Corpuscular Hemoglobin Concent 33 32-36 G/DL Red Cell Distribution Width 14.9 H 10.0-14.5 % Platelet Count 209 130-400 10^3/uL Mean Platelet Volume 9.7 7.4-10.4 FL Neutrophils (%) (Auto) 80 H 42-75 % Lymphocytes (%) (Auto) 11 L 12-44 % Monocytes (%) (Auto) 9 0-12 % Eosinophils (%) (Auto) 0 0-10 % Basophils (%) (Auto) 0 0-10 % Neutrophils # (Auto) 15.8 H 1.8-7.8 X 10^3 Lymphocytes # (Auto) 2.2 1.0-4.0 X 10^3 Monocytes # (Auto) 1.8 H 0.0-1.0 X 10^3 Eosinophils # (Auto) 0.0 0.0-0.3 10^3/uL Basophils # (Auto) 0.0 0.0-0.1 10^3/uL Neutrophils % (Manual) 79 % Lymphocytes % (Manual) 15 % Monocytes % (Manual) 4 % Eosinophils % (Manual) 0 % Basophils % (Manual) 1 % Band Neutrophils 1 % Blood Morphology Comment NORMAL Urine Color YELLOW Urine Clarity SLIGHTLY CLOUDY Urine pH 5 5-9 Urine Specific [place] 1.010 L 1.016-1.022 Urine Protein 3+ H NEGATIVE Urine Glucose (UA) NEGATIVE NEGATIVE Urine Ketones NEGATIVE NEGATIVE Urine Nitrite NEGATIVE NEGATIVE Urine Bilirubin NEGATIVE NEGATIVE Urine Urobilinogen NORMAL NORMAL MG/DL Urine Leukocyte Esterase 2+ H NEGATIVE Urine RBC (Auto) 5+ H NEGATIVE Urine RBC 25-50 H /HPF Urine WBC 50-100 H /HPF Urine Crystals NONE /LPF Urine Bacteria LARGE H /HPF Urine Casts NONE /LPF Urine Mucus SMALL H /LPF Urine Culture Indicated YES Sodium Level 136 135-145 MMOL/L Potassium Level 4.3 3.6-5.0 MMOL/L Chloride Level 99 98-107 MMOL/L Carbon Dioxide Level 21 21-32 MMOL/L Anion Gap 16 H 5-14 MMOL/L Blood Urea Nitrogen 22 H 7-18 MG/DL Creatinine 1.33 H 0.60-1.30 MG/DL Estimat Glomerular Filtration Rate 54 BUN/Creatinine Ratio 17 Glucose Level 176 H 70-105 MG/DL Calcium Level 9.8 8.5-10.1 MG/DL Total Bilirubin 0.8 0.1-1.0 MG/DL Aspartate Amino Transf (AST/SGOT) 14 5-34 U/L Alanine Aminotransferase (ALT/SGPT) 15 0-55 U/L Alkaline Phosphatase 80 40-136 U/L Total Protein 8.2 6.4-8.2 GM/DL Albumin 4.1 3.2-4.5 GM/DL My Orders Orders - FABRICE NELSON Cbc With Automated Diff (10/11/17 19:13) Comprehensive Metabolic Panel (10/11/17 19:13) Ua Culture If Indicated (10/11/17 19:13) Chest 1 View, Ap/Pa Only (10/11/17 19:13) Saline Lock/Iv-Start (10/11/17 19:13) Ns Iv 1000 Ml (Sodium Chloride 0.9%) (10/11/17 19:13) Manual Differential (10/11/17 19:30) Urine Culture (10/11/17 19:30) Ciprofloxacin Tablet (Cipro Tablet) (10/11/17 20:15) Vital Signs/I&O Vital Sign - Last 12Hours 10/11/17 10/11/17 18:14 20:31 Temp 98.9 Pulse 95 96 Resp 20 20 B/P (MAP) 142/71 (94) 118/64 Pulse Ox 95 99 O2 Delivery Room Air Room Air Capillary Refill : Less Than 3 Seconds Blood Pressure Mean: 94 Progress Note : Time: 19:00 Progress Note Initial evaluation completed, recommended normal saline 1 L IV labs and reevaluation. 1950 UA results discussed with the patient, he did have a Mota catheter placed while inpatient in the hospital. Pt reports feeling better after receiving the fluids. 2014 discharge planning and return precautions reviewed with patient. Diagnostic Imaging Diagonstic Imaging: Xray Plain Films/CT/US/NM/MRI: chest Comments NAME: APRIL FLORES II [facility] REC#: [id number] PT STATUS: REG ER : 1955 PHYSICIAN: FABRICE NELSON ADMIT DATE: 10/11/17/ER Draft Date of Exam:10/11/17 CHEST 1 VIEW, AP/PA ONLY Clinical indication: Patient with shortness of air. Exam: Portable chest x-ray upright view. Comparisons: Chest x-ray dated 09/17/2017. Findings: Lungs/pleura: There is minimal right lung base atelectasis versus infiltrate. Otherwise, lungs are clear. There is no pneumothorax. There is no pleural effusion. Mediastinum: Unremarkable. Pulmonary vasculature: Unremarkable. Heart: Unremarkable. Bones/extrathoracic soft tissue: Unremarkable. Impression: 1: There is minimal right lung base atelectasis versus infiltrate. 2: Otherwise, there is no other concern for radiographic evidence of acute cardiopulmonary process. Dictated on workstation # [id number] Dict: 10/11/171938 Trans: 10/11/171941 JENNIFER [id number] Interpreted by: GINA CUADRA MD Electronically signed by: Reviewed: Reviewed by Me Departure Impression Impression: Primary Impression: Urinary tract infection Qualified Codes: N30.01 - Acute cystitis with hematuria Disposition: HOME, SELF-CARE Condition: Stable Departure-Patient Inst. Decision time for Depature: 20:15 Referrals: REED MOFFETT (PCP/Family) Primary Care Physician Patient Instructions: Urinary Tract Infection, Adult (DC) Add. Discharge Instructions: Increase fluid intake. Drink 1 cup of cranberry juice daily. Empty bladder frequently. Continue taking all home medications. Follow-up with your primary care provider if symptoms are not improving or worsen. Take all antibiotic as prescribed. Return to emergency department if symptoms worsen. All discharge instructions reviewed with patient and/or family. Voiced understanding. Scripts Ciprofloxacin HCl (Cipro) 500 Mg Tablet 500 MG PO BID, #14 TAB 0 Refills Prov: FABRICE NELSON 10/11/17 FABRICE NELSON Oct 11, 2017 19:14
--- NOTE | 2017-10-11 19:42 | Diagnostic Imaging Report ---
Clinical indication: Patient with shortness of air. Exam: Portable chest x-ray upright view. Comparisons: Chest x-ray dated 09/17/2017. Findings: Lungs/pleura: There is minimal right lung base atelectasis versus infiltrate. Otherwise, lungs are clear. There is no pneumothorax. There is no pleural effusion. Mediastinum: Unremarkable. Pulmonary vasculature: Unremarkable. Heart: Unremarkable. Bones/extrathoracic soft tissue: Unremarkable. Impression: 1: There is minimal right lung base atelectasis versus infiltrate. 2: Otherwise, there is no other concern for radiographic evidence of acute cardiopulmonary process. Dictated by: Dictated on workstation # [id number]
[2017-10-11 19:46] LABS: BASOPHILS % (AUTO) 0 % (0-10); EOSINOPHILS % (AUTO) 0 % (0-10); HEMATOCRIT 40 % (40-54); HEMOGLOBIN 13.3 G/DL (13.3-17.7); LYMPHOCYTES # (AUTO) 2.2 X 10^3 (1.0-4.0); LYMPHOCYTES % (AUTO) 11 % (12-44); MEAN CORPUSCULAR HEMOGLOBIN 30 PG (25-34); MEAN CORPUSCULAR HGB CONC 33 G/DL (32-36); MEAN CORPUSCULAR VOLUME 90 FL (80-99); MEAN PLATELET VOLUME 9.7 FL (7.4-10.4); MONOCYTES # (AUTO) 1.8 X 10^3 (0.0-1.0); MONOCYTES % (AUTO) 9 % (0-12); NEUTROPHILS # (AUTO) 15.8 X 10^3 (1.8-7.8); NEUTROPHILS % (AUTO) 80 % (42-75); PLATELET COUNT 209 10^3/uL (130-400); RED BLOOD COUNT 4.46 10^6/uL (4.35-5.85); RED CELL DISTRIBUTION WIDTH 14.9 % (10.0-14.5); WHITE BLOOD COUNT 19.7 10^3/uL (4.3-11.0)
[2017-10-11 19:48] LABS: BILIRUBIN,URINE NEGATIVE (NEGATIVE); CLARITY,URINE SLIGHTLY CLOUDY; COLOR,URINE YELLOW; GLUCOSE, URINE (UA) NEGATIVE (NEGATIVE); KETONES,URINE NEGATIVE (NEGATIVE); LEUKOCYTE ESTERASE ,URINE 2+ (NEGATIVE); NITRITE,URINE NEGATIVE (NEGATIVE); PH,URINE 5 (5-9); PROTEIN,URINE 3+ (NEGATIVE); UROBILINOGEN,URINE NORMAL (NORMAL)
[2017-10-11 19:56] LABS: BACTERIA,URINE LARGE /HPF; RBC,URINE 25-50 /HPF; WBC,URINE 50-100 /HPF
[2017-10-11 20:05] LABS: ALBUMIN 4.1 GM/DL (3.2-4.5); BILIRUBIN,TOTAL 0.8 MG/DL (0.1-1.0); CALCIUM 9.8 MG/DL (8.5-10.1); CREATININE SERUM 1.33 MG/DL (0.60-1.30); POTASSIUM 4.3 MMOL/L (3.6-5.0); TOTAL PROTEIN 8.2 GM/DL (6.4-8.2)
[2017-10-11] MEDS ORDERED: CIPROFLOXACIN 500 MG (CIPRO) TABLET PO SCH (20:15)
[2017-10-11 20:16] LABS: BAND NEUTROPHILS 1 %; BASOPHILS % (MANUAL) 1 %; EOSINOPHILS % (MANUAL) 0 %; LYMPHOCYTES % (MANUAL) 15 %; MONOCYTES % (MANUAL) 4 %; NEUTROPHILS % (MANUAL) 79 %; RBC MORPH NORMAL
[2017-10-11] MEDS ORDERED: CIPR-225 PO (20:22)
[2017-10-11 20:31] VITALS: BP 118/64
== END 2017-10-11 20:34 | disposition home or self-care (01) ==
LOC: EDUNIT# 17:55 → ER 17:57
DX: N39.0 Urinary tract infection, site not specified (principal); F41.9 Anxiety disorder, unspecified; F32.9 Major depressive disorder, single episode, unspecified; E11.40 Type 2 diabetes mellitus with diabetic neuropathy, unspecified; I11.0 Hypertensive heart disease with heart failure; I50.9 Heart failure, unspecified; E78.00 Pure hypercholesterolemia, unspecified; I25.2 Old myocardial infarction; F12.90 Cannabis use, unspecified, uncomplicated; F17.210 Nicotine dependence, cigarettes, uncomplicated; Z79.82 Long term (current) use of aspirin; Z79.84 Long term (current) use of oral hypoglycemic drugs; Z79.52 Long term (current) use of systemic steroids
CPT/HCPCS: 36415; 71045; 80053; 81000; 85007; 85027; 87077; 87088; 87186

== ENCOUNTER 2017-10-29 10:42 | Emergency (ER) | payer SELFPAY ==
[~2017-10-29] VITALS: Ht 188 cm; Wt 85.4 kg
[~2017-10-29 10:42] MED LIST changes: +CIPR-225 PO
[2017-10-29] MEDS ORDERED: fentaNYL INJECTION 100 MCG/2 ML AMP ONE (11:04)
[2017-10-29] MEDS ORDERED: NS IV 1000 ML 1,000 ML ONE (11:04)
[2017-10-29] MEDS ORDERED: ONDANSETRON 4 MG/2 ML (SDV) Z0FRAN IVP ONE (11:15)
[2017-10-29] MEDS ORDERED: fentaNYL INJECTION 100 MCG/2 ML AMP IVP ONE ×2 (11:15→13:30)
[2017-10-29] MEDS ORDERED: NS 1000 ML IV BAG IV ONE (11:15)
[2017-10-29 11:17] LABS: BASOPHILS # (AUTO) 0.1 10^3/uL (0.0-0.1); BASOPHILS % (AUTO) 1 % (0-10); EOSINOPHILS # (AUTO) 0.2 10^3/uL (0.0-0.3); EOSINOPHILS % (AUTO) 2 % (0-10); HEMATOCRIT 40 % (40-54); HEMOGLOBIN 13.1 G/DL (13.3-17.7); LYMPHOCYTES # (AUTO) 2.1 X 10^3 (1.0-4.0); LYMPHOCYTES % (AUTO) 26 % (12-44); MEAN CORPUSCULAR HEMOGLOBIN 30 PG (25-34); MEAN CORPUSCULAR HGB CONC 33 G/DL (32-36); MEAN CORPUSCULAR VOLUME 91 FL (80-99); MEAN PLATELET VOLUME 9.6 FL (7.4-10.4); MONOCYTES # (AUTO) 0.6 X 10^3 (0.0-1.0); MONOCYTES % (AUTO) 8 % (0-12); NEUTROPHILS # (AUTO) 5.1 X 10^3 (1.8-7.8); NEUTROPHILS % (AUTO) 64 % (42-75); PLATELET COUNT 245 10^3/uL (130-400); RED BLOOD COUNT 4.36 10^6/uL (4.35-5.85); RED CELL DISTRIBUTION WIDTH 15.2 % (10.0-14.5); WHITE BLOOD COUNT 8.1 10^3/uL (4.3-11.0)
--- NOTE | 2017-10-29 11:27 | ED Abdominal Pain ---
General Chief Complaint: Abdominal/GI Problems Stated Complaint: ABD PAIN,BACK PAIN History of Present Illness Date Seen by Provider: Oct 29, 2017 Time Seen by Provider: 11:16 Initial Comments Patient is a 61-year-old male who presents to the emergency room with complaints of diffuse sharp abdominal pain and nausea for 3 days. Patient denies vomiting and reports that this pain is similar to his history of pancreatitis. Patient reports extensive cardiac history. Timing/Duration: 2-3 Days Severity/Quality: Mild ( one of the road) Location: Epigastric Radiation: No Radiation Activities at Onset: None Associated Symptoms: Denies Symptoms Allergies and Home Medications Allergies Coded Allergies: No Known Drug Allergies (Unverified , 02/07/13) Home Medications Amlodipine Besylate 5 Mg Tablet, 5 MG PO DAILY, (Reported) LAST FILLED #30 8-24-17 Aspirin 81 Mg Tab.chew, 81 MG PO DAILY Prescribed by: Ignacio CID on 09/13/17 1302 Atorvastatin Calcium 40 Mg Tablet, 40 MG PO HS Prescribed by: Ignacio CID on 09/13/17 1302 Clopidogrel Bisulfate 75 Mg Tablet, 75 MG PO DAILY Prescribed by: Ignacio CID on 09/13/17 1302 Gabapentin 300 Mg Capsule, 600 MG PO TID Prescribed by: MAURICIO OSEGUERA on 09/13/17 1232 Glyburide 2.5 Mg Tablet, 2.5 MG PO DAILY Prescribed by: MAURICIO OSEGUERA on 09/13/17 1232 Hydrocodone/Acetaminophen 1 Each Tablet, 1 EACH PO Q6H Prescribed by: MARILEE OSWALD on 10/29/17 1330 Lisinopril 20 Mg Tablet, 20 MG PO DAILY Prescribed by: Ignacio CID on 09/13/17 1302 Metformin HCl 500 Mg Tablet, 500 MG PO BID Prescribed by: MAURICIO OSEGUERA on 09/13/17 1232 Metoprolol Tartrate 50 Mg Tablet, 50 MG PO BID Prescribed by: Ignacio CID on 09/13/17 1302 Ondansetron HCl 4 Mg Tab, 4 MG PO Q4H Prescribed by: MARILEE OSWALD on 10/29/17 1330 Prednisone 10 Mg Tab.ds.pk, 10 MG PO DAILY Prescribed by: MAURICIO OSEGUERA on 09/13/17 1232 Rivaroxaban 15 Mg Tablet, 15 MG PO DAILY Prescribed by: Ignacio CID on 09/13/17 1302 Patient Home Medication List Home Medication List Reviewed: Yes Review of Systems Constitutional: no symptoms reported, see HPI EENTM: No Symptoms Reported, See HPI Respiratory: No Symptoms Reported, See HPI Cardiovascular: No Symptoms Reported, See HPI Gastrointestinal: See HPI, Abdominal Pain, Nausea Genitourinary: No Symptoms Reported, See HPI Musculoskeletal: no symptoms reported, see HPI Skin: no symptoms reported, see HPI Psychiatric/Neurological: No Symptoms Reported, See HPI Endocrine: No Symptoms Reported, See HPI Hematologic/Lymphatic: No Symptoms Reported, See HPI Past Dtptnxv-Lknltp-Eimfqp Hx Patient Social History Drug of Choice: OCCASIONAL MARIJUANA USE Type Used: Cigarettes, Electronic/Vapor Recent Foreign Travel: No Contact w/Someone Who Travel: No Recent Hopitalizations: Yes (D/C FROM THIS FACILITY ON 09/13/17) Immunizations Up To Date Tetanus Booster (TDap): Unknown PED Vaccines UTD: No Date of Pneumonia Vaccine: Sep 09, 2014 Date of Influenza Vaccine: Sep 17, 2017 Seasonal Allergies Seasonal Allergies: No Surgeries History of Surgeries: Yes (HERNIA REPAIR) Respiratory History of Respiratory Disorde: Yes (HX OF CHF-RESP DISTRESS) Currently Using CPAP: No Currently Using BIPAP: No Cardiovascular History of Cardiac Disorders: Yes ("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CT") Cardiac Disorders: Heart Attack, High Cholesterol, Hypertension Neurological History of Neurological Disord: Yes (NEUROPATHY IN FEET) Neurological Disorders: Neuropathy Reproductive System Hx Reproductive Disorders: No Sexually Transmitted Disease: No HIV/AIDS: No Genitourinary History of Genitourinary Disor: Yes Genitourinary Disorders: Renal Failure Gastrointestinal History of Gastrointestinal Di: Yes (VENTRAL HERNIA) Gastrointestinal Disorders: Pancreatitis Musculoskeletal History of Musculoskeletal Dis: No Endocrine History of Endocrine Disorders: Yes Endocrine Disorders: Diabetes, Non-Insulin dep HEENT History of HEENT Disorders: No Cancer History of Cancer: No Psychosocial History of Psychiatric Problem: Yes Behavioral Health Disorders: Anxiety, Depression Integumentary History of Skin or Integumenta: No Blood Transfusions History of Blood Disorders: No Adverse Reaction to a Blood Tr: No Family Medical History Family Medial History: Diabetes mellitus 19 MOTHER G8 SISTER FH: lymphoma 19 FATHER Physical Exam Vital Signs VS - Last 72 Hours, by Label 10/29/17 10/29/17 10:50 14:32 Temp 97.5 97.5 Pulse 81 68 Resp 18 18 B/P (MAP) 170/93 (118) 157/94 (118) Pulse Ox 97 95 O2 Delivery Room Air Capillary Refill : General Appearance: WD/WN, no apparent distress HEENT: normal ENT inspection Neck: non-tender, full range of motion Respiratory: chest non-tender, lungs clear, normal breath sounds, no respiratory distress, no accessory muscle use Cardiovascular: normal peripheral pulses, regular rate, rhythm (related disease pain), no edema, no gallop, no JVD, no murmur Gastrointestinal: normal bowel sounds, non tender, soft, no organomegaly Rectal: normal exam, normal rectal tone Genital/Rectal: normal genital exam, normal rectal exam Extremities: normal range of motion, non-tender Back: normal inspection, no CVA tenderness, no vertebral tenderness Pelvic: normal external exam Neurologic/Psychiatric: alert, normal mood/affect, oriented x 3 Skin: normal color, warm/dry Lymphatic: no adenopathy Date of ETT Placement: Sep 17, 2017 Time of ETT Placement: 1255 Progress/Results/Core Measures Results/Orders Lab Results Laboratory Tests Test 10/29/17 10:00 10/29/17 13:13 Range/Units White Blood Count 8.1 4.3-11.0 10^3/uL Red Blood Count 4.36 4.35-5.85 10^6/uL Hemoglobin 13.1 L 13.3-17.7 G/DL Hematocrit 40 40-54 % Mean Corpuscular Volume 91 80-99 FL Mean Corpuscular Hemoglobin 30 25-34 PG Mean Corpuscular Hemoglobin Concent 33 32-36 G/DL Red Cell Distribution Width 15.2 H 10.0-14.5 % Platelet Count 245 130-400 10^3/uL Mean Platelet Volume 9.6 7.4-10.4 FL Neutrophils (%) (Auto) 64 42-75 % Lymphocytes (%) (Auto) 26 12-44 % Monocytes (%) (Auto) 8 0-12 % Eosinophils (%) (Auto) 2 0-10 % Basophils (%) (Auto) 1 0-10 % Neutrophils # (Auto) 5.1 1.8-7.8 X 10^3 Lymphocytes # (Auto) 2.1 1.0-4.0 X 10^3 Monocytes # (Auto) 0.6 0.0-1.0 X 10^3 Eosinophils # (Auto) 0.2 0.0-0.3 10^3/uL Basophils # (Auto) 0.1 0.0-0.1 10^3/uL Sodium Level 137 135-145 MMOL/L Potassium Level 4.3 3.6-5.0 MMOL/L Chloride Level 104 98-107 MMOL/L Carbon Dioxide Level 23 21-32 MMOL/L Anion Gap 10 5-14 MMOL/L Blood Urea Nitrogen 19 H 7-18 MG/DL Creatinine 0.97 0.60-1.30 MG/DL Estimat Glomerular Filtration Rate > 60 BUN/Creatinine Ratio 20 Glucose Level 227 H 70-105 MG/DL Calcium Level 9.1 8.5-10.1 MG/DL Total Bilirubin 0.3 0.1-1.0 MG/DL Aspartate Amino Transf (AST/SGOT) 24 5-34 U/L Alanine Aminotransferase (ALT/SGPT) 27 0-55 U/L Alkaline Phosphatase 71 40-136 U/L Troponin I < 0.30 <0.30 NG/ML Total Protein 7.4 6.4-8.2 GM/DL Albumin 4.0 3.2-4.5 GM/DL Lipase 187 H 8-78 U/L Urine Color YELLOW Urine Clarity CLEAR Urine pH 5 5-9 Urine Specific [place] 1.015 L 1.016-1.022 Urine Protein 3+ H NEGATIVE Urine Glucose (UA) 1+ H NEGATIVE Urine Ketones NEGATIVE NEGATIVE Urine Nitrite NEGATIVE NEGATIVE Urine Bilirubin NEGATIVE NEGATIVE Urine Urobilinogen NORMAL NORMAL MG/DL Urine Leukocyte Esterase NEGATIVE NEGATIVE Urine RBC (Auto) NEGATIVE NEGATIVE Urine RBC NONE /HPF Urine WBC NONE /HPF Urine Squamous Epithelial Cells 0-2 /HPF Urine Crystals NONE /LPF Urine Bacteria NEGATIVE /HPF Urine Casts NONE /LPF Urine Mucus NEGATIVE /LPF Urine Culture Indicated NO My Orders Orders - MARILEE OSWALD APRN Continuous Ekg Monitoring (10/29/17 11:03) Ekg Tracing (10/29/17 11:03) Cbc With Automated Diff (10/29/17 11:02) Comprehensive Metabolic Panel (10/29/17 11:02) Lipase (10/29/17 11:02) Ua Culture If Indicated (10/29/17 11:02) Fentanyl Injection (Sublimaze Injection (10/29/17 11:15) Ns Iv 1000 Ml (Sodium Chloride 0.9%) (10/29/17 11:15) Saline Lock/Iv-Start (10/29/17 11:02) Ondansetron Injection (Zofran Injectio (10/29/17 11:15) Fentanyl Injection (Sublimaze Injection (10/29/17 11:04) Ns Iv 1000 Ml (Sodium Chloride 0.9%) (10/29/17 11:04) Troponin I (10/29/17 11:30) Ct Abdomen/Pelvis W (10/29/17 11:40) Iohexol Injection (Omnipaque 350 Mg/Ml 1 (10/29/17 12:00) Sodium Chloride Flush (Catheter Flush Sy (10/29/17 12:00) Ns (Ivpb) (Sodium Chloride 0.9%) (10/29/17 12:00) Pharmacy Communication (Pharmacy Communi (10/29/17 11:50) Us Gallbladder 19381 (10/29/17 11:57) Fentanyl Injection (Sublimaze Injection (10/29/17 13:30) Medications Given in ED Current Medications Medications Dose Ordered Sig/Aris Route Start Time Stop Time Status Last Admin Dose Admin Fentanyl Citrate 50 mcg ONCE ONCE IVP 10/29/17 13:30 10/29/17 13:31 DC 10/29/17 13:51 50 MCG Iohexol 100 ml ONCE ONCE IV 10/29/17 12:00 10/29/17 12:01 DC 10/29/17 12:50 100 ML Sodium Chloride 10 ml NEEDED PRN IV 10/29/17 12:00 10/29/17 14:32 DC 10/29/17 12:50 10 ML Sodium Chloride 250 ml ONCE ONCE IV 10/29/17 12:00 10/29/17 12:01 DC 10/29/17 12:50 80 ML Vital Signs/I&O Vital Sign - Last 12Hours 10/29/17 10/29/17 10:50 14:32 Temp 97.5 97.5 Pulse 81 68 Resp 18 18 B/P (MAP) 170/93 (118) 157/94 (118) Pulse Ox 97 95 O2 Delivery Room Air Departure Impression Impression: Primary Impression: Chronic pancreatitis Disposition: HOME, SELF-CARE Condition: Stable Departure-Patient Inst. Decision time for Depature: 13:25 Referrals: PAYTON PALACIOS MD (PCP/Family) Primary Care Physician Patient Instructions: Pancreatitis (DC) Add. Discharge Instructions: Take medication as directed. You need clear liquid diet for 24 hours and advanced as tolerated. Return back to emergency room for worsening pain, nausea , vomiting, or any other concerns as needed. Follow-up with your doctor within 1 week for recheck. All discharge instructions reviewed with patient and/or family. Voiced understanding. Scripts Hydrocodone/Acetaminophen ([place] 5-325 Tablet) 1 Each Tablet 1 EACH PO Q6H for Pain, #10 TAB Prov: MARILEE OSWALD APRN 10/29/17 Ondansetron HCl (Zofran) 4 Mg Tab 4 MG PO Q4H for Nausea, #20 TAB Prov: MARILEE OSWALD APRN 10/29/17 MARILEE OSWALD APRN Oct 29, 2017 11:26
[2017-10-29 11:33] LABS: ALANINE AMINOTRANSFERASE 27 U/L (0-55); ALKALINE PHOSPHATASE 71 U/L (40-136); BILIRUBIN,TOTAL 0.3 MG/DL (0.1-1.0); BUN/CREATININE RATIO 20; CALCIUM 9.1 MG/DL (8.5-10.1); CARBON DIOXIDE 23 MMOL/L (21-32); CHLORIDE 104 MMOL/L (98-107); CREATININE SERUM 0.97 MG/DL (0.60-1.30); GFR ESTIMATED > 60; GLUCOSE 227 MG/DL (70-105); LIPASE 187 U/L (8-78); POTASSIUM 4.3 MMOL/L (3.6-5.0); SODIUM 137 MMOL/L (135-145); TOTAL PROTEIN 7.4 GM/DL (6.4-8.2)
[2017-10-29] MEDS ORDERED: IOHEXOL 350 MG/ML 100 ML (OMNIPAQUE 350) VIAL IV ONE (12:00)
[2017-10-29] MEDS ORDERED: CATHETER FLUSH 10 ML SYR IV PRN (12:00)
[2017-10-29] MEDS ORDERED: NS 250 ML (IVPB) BAG IV ONE (12:00)
--- NOTE | 2017-10-29 13:00 | Diagnostic Imaging Report ---
PROCEDURE: US Gallbladder. TECHNIQUE: Multiple real-time grayscale images were obtained over the right upper quadrant in various projections. INDICATION: Upper abdominal pain. FINDINGS: The liver is upper limits of normal in size at 18 cm. No discrete liver mass is identified. Gallbladder is contracted, limiting evaluation. This likely owing to a recent meal. The common bile duct and pancreas are obscured by bowel gas. The right kidney is unremarkable. There is no ascites. IMPRESSION: Contracted gallbladder, likely owing to a recent meal. The study is otherwise unremarkable. Dictated by: Dictated on workstation # [id number]
--- NOTE | 2017-10-29 13:22 | Diagnostic Imaging Report ---
INDICATION: Abdominal pain, prior history of pancreatitis. CT of the abdomen and pelvis obtained with IV contrast bolus. Comparison made to 09/17/2017. Visualized portion of the lung bases are clear. There are no pleural fluid collections. There is no free intraperitoneal air. Compared to the prior study, the bibasilar infiltrate versus atelectatic changes and pleural effusions have resolved. The liver shows no focal lesions. Gallbladder is contracted. Spleen, adrenals, and kidneys appear unremarkable. The pancreas shows normal density with no overt inflammatory changes. The borderline edema in the peripancreatic fat has resolved compared to the prior study. There is no retroperitoneal mass or adenopathy. There is no ascites or abnormal fluid collection. Visualized bowel loops show no acute finding. There are extensive uncomplicated sigmoid diverticuli. IMPRESSION: No acute process visualized in the abdominal or pelvis. Extensive uncomplicated diverticuli are noted in the sigmoid colon. There is a normal appendix. There is no overt evidence of pancreatitis. Compared to the prior study, the pleural effusions and bibasilar infiltrate versus atelectasis have resolved. Dictated by: Dictated on workstation # [id number]
[2017-10-29 13:28] LABS: BILIRUBIN,URINE NEGATIVE (NEGATIVE); CLARITY,URINE CLEAR; COLOR,URINE YELLOW; GLUCOSE, URINE (UA) 1+ (NEGATIVE); KETONES,URINE NEGATIVE (NEGATIVE); LEUKOCYTE ESTERASE ,URINE NEGATIVE (NEGATIVE); NITRITE,URINE NEGATIVE (NEGATIVE); PH,URINE 5 (5-9); PROTEIN,URINE 3+ (NEGATIVE); UROBILINOGEN,URINE NORMAL (NORMAL)
[2017-10-29] MEDS ORDERED: HYDR-757 PO (13:30)
[2017-10-29] MEDS ORDERED: ONDN4T PO (13:30)
[2017-10-29 13:49] LABS: BACTERIA,URINE NEGATIVE /HPF
[2017-10-29 13:50] LABS: SQUAMOUS EPITHELIAL CELL,UR 0-2 /HPF
[2017-10-29 14:32] VITALS: BP 157/94
== END 2017-10-29 14:32 | disposition home or self-care (01) ==
LOC: EDUNIT# 10:42 → ER 10:44
DX: K86.1 Other chronic pancreatitis (principal); I25.2 Old myocardial infarction; E78.00 Pure hypercholesterolemia, unspecified; I10 Essential (primary) hypertension; E11.40 Type 2 diabetes mellitus with diabetic neuropathy, unspecified; F41.9 Anxiety disorder, unspecified; F32.9 Major depressive disorder, single episode, unspecified; F12.10 Cannabis abuse, uncomplicated; F17.210 Nicotine dependence, cigarettes, uncomplicated; Z87.19 Personal history of other diseases of the digestive system; Z79.82 Long term (current) use of aspirin; Z79.84 Long term (current) use of oral hypoglycemic drugs; Z79.01 Long term (current) use of anticoagulants; Z79.52 Long term (current) use of systemic steroids
CPT/HCPCS: 36415; 74177; 76705; 80053; 81000; 83690; 84484; 85025; 93005; 96361; 96374; 96375; 96376

== ENCOUNTER 2017-11-13 10:57 | Emergency (ER) | payer SELFPAY ==
[~2017-11-13] VITALS: Ht 180.3 cm; Wt 90.7 kg
[~2017-11-13 10:57] MED LIST changes: +HYDR-757 PO; +ONDN4T PO
[2017-11-13 11:15] LABS: BASOPHILS # (AUTO) 0.1 10^3/uL (0.0-0.1); BASOPHILS % (AUTO) 1 % (0-10); EOSINOPHILS # (AUTO) 0.2 10^3/uL (0.0-0.3); EOSINOPHILS % (AUTO) 3 % (0-10); HEMATOCRIT 39 % (40-54); LYMPHOCYTES # (AUTO) 2.1 X 10^3 (1.0-4.0); LYMPHOCYTES % (AUTO) 23 % (12-44); MEAN CORPUSCULAR HEMOGLOBIN 29 PG (25-34); MEAN CORPUSCULAR HGB CONC 33 G/DL (32-36); MEAN CORPUSCULAR VOLUME 89 FL (80-99); MEAN PLATELET VOLUME 9.4 FL (7.4-10.4); MONOCYTES # (AUTO) 0.8 X 10^3 (0.0-1.0); MONOCYTES % (AUTO) 9 % (0-12); NEUTROPHILS # (AUTO) 5.8 X 10^3 (1.8-7.8); NEUTROPHILS % (AUTO) 65 % (42-75); PLATELET COUNT 226 10^3/uL (130-400); RED BLOOD COUNT 4.42 10^6/uL (4.35-5.85); RED CELL DISTRIBUTION WIDTH 15.7 % (10.0-14.5)
[2017-11-13 11:28] LABS: INR 0.9 (0.8-1.4); PROTHROMBIN TIME PATIENT 12.4 SEC (12.2-14.7)
[2017-11-13 11:32] LABS: ALANINE AMINOTRANSFERASE 28 U/L (0-55); ALBUMIN 4.1 GM/DL (3.2-4.5); ALKALINE PHOSPHATASE 83 U/L (40-136); BILIRUBIN,TOTAL 0.2 MG/DL (0.1-1.0); BUN/CREATININE RATIO 26; CALCIUM 9.6 MG/DL (8.5-10.1); CARBON DIOXIDE 27 MMOL/L (21-32); CHLORIDE 103 MMOL/L (98-107); CREATININE SERUM 0.87 MG/DL (0.60-1.30); GFR ESTIMATED > 60; GLUCOSE 314 MG/DL (70-105); POTASSIUM 4.4 MMOL/L (3.6-5.0); SODIUM 139 MMOL/L (135-145); TOTAL PROTEIN 7.6 GM/DL (6.4-8.2)
[2017-11-13 11:37] LABS: FIBRIN DEGRADATION PRODUCTS 0.53 UG/ML (0.00-0.49)
--- NOTE | 2017-11-13 11:51 | ED Neurological Problem ---
General Chief Complaint: Neuro-Stroke Like Symptoms Stated Complaint: FACIAL DROOP Nursing Triage Note: TO ED FROM PSYCHIATRIC REFERRING FOR STROKE LIKE SX; RIGHT SIDED FACIAL DROOP. PT DROVE SELF. LAST WELL KNOWN 2200, AWOKE @ 0700 WITH SX. Nursing Sepsis Screen: No Definite Risk Source: patient Exam Limitations: no limitations History of Present Illness Date Seen by Provider: Nov 13, 2017 Time Seen by Provider: 11:00 Initial Comments Here with report of right facial droop since last night. This involves the forehead, eye and face. Notes that the 2 days previous to this he had drainage or watering from the right eye as well as redness. Went to the clinic who believe that he probably had Carter's palsy but were unsure and wanted further evaluation so sent him here to rule out stroke. Denies fever or chills currently. Denies weakness in any extremities. Timing/Duration: other (12 hours) Severity: moderate Associated Symptoms: No fever/chills, paresthesia (right side of face), No slurred speech, No tingling in legs/feet, No weakness, other (right facial droop ) Allergies and Home Medications Allergies Coded Allergies: No Known Drug Allergies (Unverified , 02/07/13) Home Medications Amlodipine Besylate 5 Mg Tablet, 5 MG PO DAILY, (Reported) LAST FILLED #30 8-24-17 Aspirin 81 Mg Tab.chew, 81 MG PO DAILY Prescribed by: Ignacio CID on 09/13/17 1302 Atorvastatin Calcium 40 Mg Tablet, 40 MG PO HS Prescribed by: Ignacio CID on 09/13/17 1302 Clopidogrel Bisulfate 75 Mg Tablet, 75 MG PO DAILY Prescribed by: Ignacio CID on 09/13/17 1302 Gabapentin 300 Mg Capsule, 600 MG PO TID Prescribed by: MAURICIO OSEGUERA on 09/13/17 1232 Glyburide 2.5 Mg Tablet, 2.5 MG PO DAILY Prescribed by: MAURICIO OSEGUERA on 09/13/17 1232 Hydrocodone/Acetaminophen 1 Each Tablet, 1 EACH PO Q6H Prescribed by: MARILEE OSWALD on 10/29/17 1330 Lisinopril 20 Mg Tablet, 20 MG PO DAILY Prescribed by: Ignacio CID on 09/13/17 1302 Metformin HCl 500 Mg Tablet, 500 MG PO BID Prescribed by: MAURICIO OSEGUERA on 09/13/17 1232 Metoprolol Tartrate 50 Mg Tablet, 50 MG PO BID Prescribed by: Ignacio CID on 09/13/17 1302 Ondansetron HCl 4 Mg Tab, 4 MG PO Q4H Prescribed by: MARILEE OSWALD on 10/29/17 1330 Prednisone 10 Mg Tab.ds.pk, 10 MG PO DAILY Prescribed by: MAURICIO OSEGUERA on 09/13/17 1232 Rivaroxaban 15 Mg Tablet, 15 MG PO DAILY Prescribed by: Ignacio CID on 09/13/17 1302 Patient Home Medication List Home Medication List Reviewed: Yes Review of Systems Constitutional: see HPI, No chills, No fever Eyes: See HPI Ears, Nose, Mouth, Throat: no symptoms reported Respiratory: no symptoms reported Cardiovascular: no symptoms reported Gastrointestinal: no symptoms reported Musculoskeletal: see HPI, muscle weakness Skin: no symptoms reported All Other Systems Reviewed Negative Unless Noted: Yes Past Figoyot-Siqotw-Zwkasb Hx Past Med/Social Hx: Reviewed Nursing Past Med/Soc Hx Patient Social History Alcohol Use: Past History Recreational Drug Use: Yes (SMOKES LESS THAN 1 PACK PER DAY) Drug of Choice: THC Type Used: Cigarettes 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) Recent Foreign Travel: No Contact w/Someone Who Travel: No Recent Infectious Disease Expo: No Recent Hopitalizations: Yes (SEP DC and CODE) Physical Abuse: No Sexual Abuse: No Mistreated: No Fear: No Immunizations Up To Date Tetanus Booster (TDap): Unknown PED Vaccines UTD: No Date of Pneumonia Vaccine: Sep 09, 2014 Date of Influenza Vaccine: Sep 17, 2017 Seasonal Allergies Seasonal Allergies: No Past Medical History Surgeries: Yes (HERNIA REPAIR) Abdominal, Coronary Stent Respiratory: No (DENIES BUT IS 1-2 PPD SMOKER, 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) Currently Using CPAP: No Currently Using BIPAP: No Cardiac: Yes (CODED ON 09/16/17) Coronary Artery Disease, Heart Attack, High Cholesterol, Hypertension Neurological: No Neuropathy Reproductive Disorders: No Sexually Transmitted Disease: No HIV/AIDS: No Genitourinary: No Renal Failure Gastrointestinal: Yes (HERNIA REPAIR) Abdominal Hernia, Pancreatitis Musculoskeletal: No Endocrine: Yes Diabetes, Non-Insulin dep HEENT: No Cancer: No Psychosocial: No Anxiety, Depression Nursing Suicide Risk Score: 0 Integumentary: No Blood Disorders: No Adverse Reaction/Blood Tranf: No Family Medical History Reviewed Nursing Family Hx Diabetes mellitus 19 MOTHER G8 SISTER FH: lymphoma 19 FATHER Physical Exam Vital Signs Vital Signs - First Documented 11/13/17 11:00 Temp 97.6 Pulse 92 Resp 22 B/P (MAP) 170/93 (118) Pulse Ox 98 O2 Delivery Room Air Capillary Refill : Less Than 3 Seconds General Appearance: WD/WN, no apparent distress HEENT: PERRL/EOMI, other (right lid drooping. Ocular movements intact through all ranges.) Neck: full range of motion, supple Respiratory: lungs clear, normal breath sounds Cardiovascular: regular rate, rhythm, no murmur Gastrointestinal: non tender, soft Back: normal inspection, no CVA tenderness, no vertebral tenderness Extremities: normal range of motion, non-tender, normal inspection, no pedal edema Neurologic/Psychiatric: alert, oriented x 3 Crainal Nerves: normal hearing, normal speech, PERRL Coordination/Gait: normal finger to nose, normal gait Motor/Sensory: no pronator drift, other (right eyelid drooping with some tingling on the right side of the face. Forehead is involved) Skin: normal color, warm/dry Stroke Onset of Symptoms Date of Onset of Symptoms: Nov 12, 2017 NIH Stroke Scale Assessment Level of Consciousness: 0=Alert (0), Level of Consciousness-Questions: 0= Answers both month/age (0), LOC Commands: 0=Performs both tasks (0), Visual Mosley: 0=No visual loss (0), Facial Movement (Facial Paresis): 1=Minor paralysis (1), Motor Function-Arms Right: 0=No drift (0), Motor Function-Arms Left: 0=No drift (0), Motor Function-Legs Right: 0=No drift (0), Motor Function- Legs Left: 0=No drift (0), Limb Ataxia: 0=Absent (0), Sensory: 0=Normal:no loss (0), Best Language: 0=No aphasia (0), Dysarthria: 1=Mild to moderate loss (1), Extinction & Inattention: 0=No abnormality (0), Total: Stroke Thrombolytic Exclusion Age 18 or Over: Yes Procedures/Interventions Date of ETT Placement: Sep 17, 2017 Time of ETT Placement: 1255 Progress/Results/Core Measures Lab Results Laboratory Tests Test 11/13/17 11:01 11/13/17 11:08 Range/Units Glucometer 321 H 70-110 MG/DL White Blood Count 9.0 4.3-11.0 10^3/uL Red Blood Count 4.42 4.35-5.85 10^6/uL Hemoglobin 13.0 L 13.3-17.7 G/DL Hematocrit 39 L 40-54 % Mean Corpuscular Volume 89 80-99 FL Mean Corpuscular Hemoglobin 29 25-34 PG Mean Corpuscular Hemoglobin Concent 33 32-36 G/DL Red Cell Distribution Width 15.7 H 10.0-14.5 % Platelet Count 226 130-400 10^3/uL Mean Platelet Volume 9.4 7.4-10.4 FL Neutrophils (%) (Auto) 65 42-75 % Lymphocytes (%) (Auto) 23 12-44 % Monocytes (%) (Auto) 9 0-12 % Eosinophils (%) (Auto) 3 0-10 % Basophils (%) (Auto) 1 0-10 % Neutrophils # (Auto) 5.8 1.8-7.8 X 10^3 Lymphocytes # (Auto) 2.1 1.0-4.0 X 10^3 Monocytes # (Auto) 0.8 0.0-1.0 X 10^3 Eosinophils # (Auto) 0.2 0.0-0.3 10^3/uL Basophils # (Auto) 0.1 0.0-0.1 10^3/uL Prothrombin Time 12.4 12.2-14.7 SEC INR Comment 0.9 0.8-1.4 Activated Partial Thromboplast Time 26 24-35 SEC D-Dimer 0.53 H 0.00-0.49 UG/ML Sodium Level 139 135-145 MMOL/L Potassium Level 4.4 3.6-5.0 MMOL/L Chloride Level 103 98-107 MMOL/L Carbon Dioxide Level 27 21-32 MMOL/L Anion Gap 9 5-14 MMOL/L Blood Urea Nitrogen 23 H 7-18 MG/DL Creatinine 0.87 0.60-1.30 MG/DL Estimat Glomerular Filtration Rate > 60 BUN/Creatinine Ratio 26 Glucose Level 314 H 70-105 MG/DL Calcium Level 9.6 8.5-10.1 MG/DL Total Bilirubin 0.2 0.1-1.0 MG/DL Aspartate Amino Transf (AST/SGOT) 24 5-34 U/L Alanine Aminotransferase (ALT/SGPT) 28 0-55 U/L Alkaline Phosphatase 83 40-136 U/L Troponin I < 0.30 <0.30 NG/ML Total Protein 7.6 6.4-8.2 GM/DL Albumin 4.1 3.2-4.5 GM/DL My Orders Orders - MARIJA BOYER MD Cbc With Automated Diff (11/13/17 11:07) Protime With Inr (11/13/17 11:07) Partial Thromboplastin Time (11/13/17 11:07) Comprehensive Metabolic Panel (11/13/17 11:07) Fibrin Degradation Products (11/13/17 11:07) Troponin I (11/13/17 11:07) Ekg Tracing (11/13/17 11:07) Accucheck Stat ONCE (11/13/17 11:07) Saline Lock/Iv-Start (11/13/17 11:07) Vital Signs Stroke Patient Q15M (11/13/17 11:07) Ct Head Wo-R/O Stroke (11/13/17 11:07) O2 (11/13/17 11:07) Intake & Output 06,14,22 (11/13/17 11:07) Monitor-Rhythm Ecg Trace Only (11/13/17 11:07) Dysphagia Screening Tool (11/13/17 11:07) Vital Signs/I&O 11/13/17 11:00 Temp 97.6 Pulse 92 Resp 22 B/P (MAP) 170/93 (118) Pulse Ox 98 O2 Delivery Room Air Blood Pressure Mean: 118 Finger Stick Blood Glucose: 321 Progress Note : Progress Note Seen and evaluated. Patient has right facial droop. Stroke scale initiated and does show positive findings related to Carter's palsy likely. We did order CT scan and labs that have aborted the rest of the stroke workup at this point. Patient is in agreement with this. He is fairly sure that this is Carter's palsy as well. Monitor patient. 1310: Patient can go back to [facility] and get prescription filled as they also believe this was likely Carter' s palsy but wanted second opinion and will cosign prescription. Considered both corticosteroids and antivirals but patient has diabetes with uncontrolled blood sugars. This was discussed with the patient. He would like to forego the prednisone but would accept the acyclovir. This was ordered. Discharged home with return precautions. Patient verbalize understanding of instructions and agreement with plan. Diagonstic Imaging: CT Plain Films/CT/US/NM/MRI: head Comments VIA [facility], [facility]. [place], [place] NAME: APRIL FLORES II [facility] REC#: [id number] PT STATUS: REG ER : 1955 PHYSICIAN: MARIJA BOYER MD ADMIT DATE: 11/13/17/ER Draft Date of Exam:11/13/17 CT HEAD WO-R/O STROKE INDICATION: Hypertension and right facial droop. Multiple contiguous axial CT images of the head are obtained with comparison made study of 09/17/2017. FINDINGS: Ventricles and sulci are within normal limits for patient's age. There is mild low-density in the deep white matter of the cerebral hemispheres most pronounced in the frontal regions. There is no evidence of hemorrhage. No abnormal mass effect or shift of midline structures is identified. There is atherosclerotic calcification within distal internal carotid and vertebral arteries. IMPRESSION: Senescent findings of the brain without CT evidence of acute intracranial abnormality. No adverse change is seen. 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 Decision time for Depature: 13:07 Referrals: PAYTON PALACIOS MD (PCP/Family) Primary Care Physician Patient Instructions: Carter's Palsy (DC) Add. Discharge Instructions: All discharge instructions reviewed with patient and/or family. Voiced understanding. Take medications as directed. Go to the clinic to get prescription filled. Return for worse pain, fever, vomiting, weakness, breathing problems or other concerns as needed. Scripts Acyclovir (Acyclovir) 400 Mg Tablet 400 MG PO 5XD, #50 TAB 0 Refills Prov: MARIJA BOYER MD 11/13/17 Copy Copies To 1: BRYANT DOE TIMOTHY D MD Nov 13, 2017 11:51
--- NOTE | 2017-11-13 12:02 | Diagnostic Imaging Report ---
INDICATION: Hypertension and right facial droop. Multiple contiguous axial CT images of the head are obtained with comparison made study of 09/17/2017. FINDINGS: Ventricles and sulci are within normal limits for patient's age. There is mild low-density in the deep white matter of the cerebral hemispheres most pronounced in the frontal regions. There is no evidence of hemorrhage. No abnormal mass effect or shift of midline structures is identified. There is atherosclerotic calcification within distal internal carotid and vertebral arteries. IMPRESSION: Senescent findings of the brain without CT evidence of acute intracranial abnormality. No adverse change is seen. Dictated by: Dictated on workstation # [id number]
[2017-11-13] MEDS ORDERED: ACYC400T PO (13:12)
[2017-11-13 13:30] VITALS: BP 165/116
== END 2017-11-13 13:30 | disposition home or self-care (01) ==
LOC: EDUNIT# 10:57 → ER 10:58
DX: G51.0 Bell's palsy (principal); E11.65 Type 2 diabetes mellitus with hyperglycemia; E11.40 Type 2 diabetes mellitus with diabetic neuropathy, unspecified; I25.10 Atherosclerotic heart disease of native coronary artery without angina pectoris; I10 Essential (primary) hypertension; I25.2 Old myocardial infarction; E78.00 Pure hypercholesterolemia, unspecified; F12.90 Cannabis use, unspecified, uncomplicated; Z77.22 Contact with and (suspected) exposure to environmental tobacco smoke (acute) (chronic); Z87.19 Personal history of other diseases of the digestive system; Z79.52 Long term (current) use of systemic steroids; Z95.5 Presence of coronary angioplasty implant and graft; Z98.890 Other specified postprocedural states; Z79.82 Long term (current) use of aspirin; Z79.84 Long term (current) use of oral hypoglycemic drugs
CPT/HCPCS: 36415; 70450; 80053; 82962; 84484; 85025; 85379; 85610; 85730; 93041

== ENCOUNTER 2020-01-17 12:09 | Emergency (ER) | payer OTHER ==
[~2020-01-17] VITALS: Ht 180 cm; Wt 91.2 kg
[~2020-01-17 12:09] MED LIST changes: +ACYC400T PO; -AMLO5TAB2 PO; +AMLO5TAB9 PO; +HYDR-4226 PO; -HYDR-757 PO; +METF-397 PO; +METF-399 PO; -METF1000 PO; -METF500T4 PO; -MONT10TA24 PO; +MONT10TA26 PO; -RIVA15TA PO; +RIVA15TA2 PO
[2020-01-17 13:01] VITALS: BP 152/64
--- OUTSIDE RECORDS SUMMARY | 2020-01-17 14:36 | XMS REPORT ---
Author Author Erik PALACIOS Organization [facility] Address [address] [place] [address] Care Team Providers Care Immigration Attorney Name Role Phone PAYTON PALACIOS Unavailable PROBLEMS Type Condition ICD9-CM Code CRM23-VR Code Onset Dates Condition S tatus SNOMED Code Problem Chronic systolic congestive heart failure I50.22 Active 723017203 Problem Essential hypertension I10 Active 08082955 Problem Coronary artery disease invo lving mcgrath coronary artery of mcgrath heart without angina pectoris I25.10 Active 1641 [id number] Problem Depression F32.9 Active 263384327 Problem CHF (congestive heart failure) I50.9 Active 61377468 Problem Chronic systolic (congestive) heart failure I50.22 Active 284015710 Problem History of pancreatitis Z87.19 Active [id number] Problem Paroxysmal atrial fibrillation I48.0 Active 821452677 Problem Kidney stone on left side N20.0 Acti ve 32404996 Problem Type 2 diabetes mellitus wit h diabetic polyneuropathy, without long-term current use of insulin E11.42 Active 20325 006 Problem Substance abuse F19.10 Active 6621 4007 Problem Chronic hepatitis C without hepatic coma B18.2 Active 987171143 Problem Polyneuropathy associated with underlying disease G63 Active 732674545 Problem Polyneuropathy associated with underlying disease G63 Active 283912796 ALLERGIES No Information ENCOUNTERS Encounter Location Date Diagnosis [facility] [address] [id number], [place] [address] Nov, [facility] [id number] [place] [address] Oct, Idiopathic acute pancreatitis without infection or necrosis K85.00 and Type 2 diabetes mellitus with diabetic polyneuropathy, without long-term current use of insulin E11.42 [facility] [address] [id number], [place] [address] Oct, Epigastric abdominal pain R10.13 ; Type 2 diabetes mellitus with diabetic polyneuropathy, without long-term current use of insulin E11.42 and Acute pancreatitis without infection or necrosis, unspecified pancreatitis type K85.90 [facility] [address] [id number] [address] Oct, Epigastric abdominal pain R10.13 and History of pancreatitis Z87.19 [facility] [id number] [place] [address] Oct, Chronic hepatitis C without hepatic coma B18.2 and High risk medication use Z79.899 [facility] [address] [facility] [id number] [address] [place] [address] Sep, [facility] [id number] [place] [address] Aug, Chronic hepatitis C without hepatic coma B18.2 [facility] [id number] [place] [address] Aug, Type 2 diabetes mellitus with diabetic polyneuropathy, without long-term current use of insulin E11.42 and Flank pain R10.9 [facility] [address] [facility] [id number] [address] [place] [address] Jul, [facility] [address] [facility] [id number] [address] [place] [address] Jun, [facility] [id number] [place] [address] Jun, Chronic hepatitis C without hepatic coma B18.2 [facility] [address] [facility] [id number] [address] [place] [address] Jun, Chronic hepatitis C without hepatic coma B18.2 [facility] [id number] [place] [address] Jun, Chronic hepatitis C without hepatic coma B18.2 and Encounter for immunization Z23 [facility] [id number] [place] [address] May, Epigastric pain R10.13 [facility] [id number] [place] [address] May, CHF (congestive heart failure) I50.9 [facility] [place] [id number] [place] [address] May, Epigastric pain R10.13 ; Type 2 diabetes mellitus with diabetic polyneuropathy, without long-term current use of insulin E11.42 ; Encounter for immunization Z23 and CHF (congestive heart failure) I50.9 [facility] [address] [facility] [id number] [address] [place] [address] May, History of pancreatitis Z87. 19 [facility] [id number] [place] [address] May, Epigastric pain R10.13 ; History of pancreatitis Z87.19 and Screening for colon cancer Z12.11 [address] [place] [address] [address] May, [facility] [id number] [place] [address] May, Type 2 diabetes mellitus with diabetic polyneuropathy, without long-term current use of insulin E11.42 [address] [id number] [place] [address] May, [facility] [id number] [place] [address] Apr, Type 2 diabetes mellitus with diabetic polyneuropathy, without long-term current use of insulin E11.42 ; Chronic systolic congestive heart failure I50.22 ; Chronic systolic (congestive) heart failure I50.22 ; Essential hypertension I10 ; Encounter for smoking cessation counseling Z71.6 ; Chronic hepatitis C without hepatic coma B18.2 and Polyneuropathy associated with underlying disease G63 [facility] [id number] [place] [address] Apr, Chronic hepatitis C without hepatic coma B18.2 [facility] [id number] [place] [address] Apr, Type 2 diabetes mellitus with diabetic polyneuropathy, without long-term current use of insulin E11.42 [facility] [address] [facility] [id number] [address] Mar, Essential hypertension I10 ; CHF (congestive heart failure) I50.9 ; Substance abuse F19.10 ; Hepatitis C antibody test positive R76.8 and Type 2 diabetes mellitus with diabetic polyneuropathy, without long-term current use of insulin E11.42 [facility] [address] [facility] [id number] [address] [place] [address] Mar, [facility] [address] [facility] [id number] [place] [address] Jan, [address] [address] December, [address] [place] [address] [address] Nov, Chronic hepatitis C without hepatic coma B18.2 [address] [place] [id number] [place] [address] Nov, Hepatitis C antibody test po sitive R76.8 [address] [place] [id number] [place] [address] Nov, Hepatitis C antibody test po sitive R76.8 [address] [place] [address] [place] [address] Oct, Substance abuse F19.10 [facility] [id number] [place] [address] Sep, Chronic systolic (congestive ) heart failure I50.22 [address] [place] [id number] [place] [address] Sep, CHF (congestive heart failur e) I50.9 [facility] [id number] [place] [address] Sep, Chronic systolic congestive heart failure I50.22 ; Type 2 diabetes mellitus with diabetic polyneuropathy, without long-term current use of insulin E11.42 ; Substance abuse F19.10 and Depression F32.9 [address] [place] [address] [address] Jan, Type 2 diabetes mellitus wit h diabetic polyneuropathy, without long-term current use of insulin E11.42 and Essential hypertension I10 [facility] [address] [address] Nov, [facility] [address] [address] Nov, Facial droop R29.810 and Cer ebrovascular accident (CVA), unspecified mechanism I63.9 [facility] [place] [address] [address] Oct, Acute abdominal pain R10.9 a nd History of acute pancreatitis Z87.19 [address] [address] [address] 15 Oct, 2017 [address] [address] [address] 13 Oct, 2017 Coronary artery disease invo lving mcgrath coronary artery of mcgrath heart without angina pectoris I25.10 ; Chronic systolic congestive heart failure I50.22 and Type 2 diabetes mellitus with diabetic polyneuropathy, without long- term current use of insulin E11.42 [address] [place] [address] [address] 20 Sep, 2017 Type 2 diabetes mellitus wit h diabetic polyneuropathy, without long-term current use of insulin E11.42 ; Persistent atrial fibrillation I48.1 ; Essential hypertension I10 and Chronic kidney disease, unspecified CKD stage N18.9 [address] [place] [address] [address] 13 Sep, 2017 [address] [address] [address] 05 Sep, 2017 [facility] [address] [id number] [address] [place] [address], [place] [address] 14 Nov, 2014 [facility] [address] [id number] [address] [place] [address], [place] [address] Nov, [facility] [address] [id number] [address] [place] [address], [place] [address] Oct, [facility] [address] [id number] [address] [place] [address], [place] [address] Oct, [facility] [address] [id number] [address] [place] [address], [place] [address] Sep, [facility] [address] [id number] [address] [place] [address], [place] [address] Sep, [facility] [address] [id number] [address] [place] [address], [place] [address] Aug, [facility] [address] [id number] [address] [place] [address], [place] [address] Aug, [facility] [address] [id number] [address] [place] [address], [place] [address] Jun, [facility] [address] [id number] [address] [place] [address], [place] [address] Jun, [facility] [address] [id number] [address] [place] [address], [place] [address] May, [facility] [address] [id number] [address] [place] [address] May, [facility] [address] [id number] [address] [place] [address], [place] [address] May, [facility] [address] [id number] [address] [place] [address], [place] [address] May, [facility] [address] [id number] [address] [place] [address], [place] [address] May, [facility] [address] [id number] [address] [place] [address] 04 May, 2013 [facility] [address] [id number] [address] [place] [address] 23 Apr, 2013 [facility] [address] [facility] [id number] [address] [place] [address] 16 Apr, 2013 [facility] [address] [facility] [id number] [address] [place] [address] Apr, [facility] [address] [facility] [id number] [address] [place] [address] 15 Mar, 2013 [facility] [address] [facility] [id number] [address] [place] [address] 14 Mar, 2013 [facility] [address] [facility] [id number] [address] [place] [address] Mar, IMMUNIZATIONS No Known Immunizations SOCIAL HISTORY Never Assessed REASON FOR VISIT PLAN OF CARE VITAL SIGNS MEDICATIONS Unknown Medications RESULTS No Results PROCEDURES No Known procedures INSTRUCTIONS MEDICATIONS ADMINISTERED No Known Medications MEDICAL (GENERAL) HISTORY Type Description Date Medical History CHF Medical History OR Medical History HTN Medical History Diabetes Medical History Pneumonia Medical History Neuropathy Medical History Carter Palsy Medical History Chronic Hep C Medical History hx of kidney stones lt side Medical History hx of pancreatitis Surgical History 2 Heart caths, stent placement 09/14/17& Surgical History hernia repair Hospitalization History [facility] 09/17/17-09/21/17
--- OUTSIDE RECORDS SUMMARY | 2020-01-17 14:36 | XMS REPORT ---
Author Author Erik Parada Doctor Organization [facility] Address Unknown Phone Unavailable Care Team Providers Care [employer] Worker Name Role Phone Migration, Doctor Unavailable Unavailable PROBLEMS Type Condition ICD9-CM Code RQH60-VB Code Onset Dates Condition S tatus SNOMED Code Problem Chronic systolic congestive heart failure I50.22 Active 526462909 Problem Essential hypertension I10 Active 31308047 Problem Coronary artery disease invo lving [place] coronary artery of [place] heart without angina pectoris I25.10 Active 1641 097714656 Problem Depression F32.9 Active 176729968 Problem CHF (congestive heart failure) I50.9 Active 21487310 Problem Chronic systolic (congestive) heart failure I50.22 Active 152124764 Problem History of pancreatitis Z87.19 Active [id number] Problem Paroxysmal atrial fibrillation I48.0 Active 632361963 Problem Kidney stone on left side N20.0 Acti ve 99811023 Problem Type 2 diabetes mellitus wit h diabetic polyneuropathy, without long-term current use of insulin E11.42 Active 04682 006 Problem Substance abuse F19.10 Active 6621 4007 Problem Chronic hepatitis C without hepatic coma B18.2 Active 828493520 Problem Polyneuropathy associated with underlying disease G63 Active 541735332 Problem Polyneuropathy associated with underlying disease G63 Active 932894481 ALLERGIES No Information ENCOUNTERS Encounter Location Date Diagnosis [facility] [address] [id number], [place] [address] Nov, [facility] [id number] [place] [address] Oct, Idiopathic acute pancreatitis without infection or necrosis K85.00 and Type 2 diabetes mellitus with diabetic polyneuropathy, without long-term current use of insulin E11.42 [facility] [address], [place] [address] Oct, Epigastric abdominal pain R10.13 ; Type 2 diabetes mellitus with diabetic polyneuropathy, without long-term current use of insulin E11.42 and Acute pancreatitis without infection or necrosis, unspecified pancreatitis type K85.90 [facility] [address] [facility] [id number] [place], [place] [address] Oct, Epigastric abdominal pain R10.13 and History of pancreatitis Z87.19 [facility] [address] [facility] [id number] [place], [place] [address] Oct, Chronic hepatitis C without hepatic coma B18.2 and High risk medication use Z79.899 [facility] [address] [facility] [id number] [address] [place] [address] Sep, [facility] [address] [facility] [id number] [address] [place] [address] Aug, Chronic hepatitis C without hepatic coma B18.2 [facility] [address] [facility] [id number] [place] [address] Aug, Type 2 diabetes mellitus with diabetic polyneuropathy, without long-term current use of insulin E11.42 and Flank pain R10.9 [facility] [address] [facility] [id number] [address] [place] [address] Jul, [facility] [address] [facility] [id number] [address] [place] [address] Jun, [facility] [address] [facility] [id number] [address] [place] [address] Jun, Chronic hepatitis C without hepatic coma B18.2 [facility] [address] [facility] [id number] [address] [place] [address] Jun, Chronic hepatitis C without hepatic coma B18.2 [facility] [address] [facility] [id number] [address] [place] [address] Jun, Chronic hepatitis C without hepatic coma B18.2 and Encounter for immunization Z23 [facility] [address] [facility] [id number] [place] [address] May, Epigastric pain R10.13 [facility] [address] [id number] [id number] May, CHF (congestive heart failure) I50.9 [facility] [id number] [place] [address] May, Epigastric pain R10.13 ; Type 2 diabetes mellitus with diabetic polyneuropathy, without long-term current use of insulin E11.42 ; Encounter for immunization Z23 and CHF (congestive heart failure) I50.9 [place] [address] [place] [id number] [place], [place] [address] May, History of pancreatitis Z87. 19 [facility] [id number] [place] [address] May, Epigastric pain R10.13 ; History of pancreatitis Z87.19 and Screening for colon cancer Z12.11 [place] [address] [address] May, [facility] [id number] [place] [address] May, Type 2 diabetes mellitus with diabetic polyneuropathy, without long-term current use of insulin E11.42 [place] [address] [place] [id number] [place], [place] [address] May, [facility] [id number] [place] [address] Apr, Type 2 diabetes mellitus with diabetic polyneuropathy, without long-term current use of insulin E11.42 ; Chronic systolic congestive heart failure I50.22 ; Chronic systolic (congestive) heart failure I50.22 ; Essential hypertension I10 ; Encounter for smoking cessation counseling Z71.6 ; Chronic hepatitis C without hepatic coma B18.2 and Polyneuropathy associated with underlying disease G63 [place] [address] [place] [id number] [place], [place] [address] Apr, Chronic hepatitis C without hepatic coma B18.2 [facility] [id number] [place], [place] [address] Apr, Type 2 diabetes mellitus with diabetic polyneuropathy, without long-term current use of insulin E11.42 [facility] [address] [facility] [id number] [place] [address] Mar, Essential hypertension I10 ; CHF (congestive heart failure) I50.9 ; Substance abuse F19.10 ; Hepatitis C antibody test positive R76.8 and Type 2 diabetes mellitus with diabetic polyneuropathy, without long-term current use of insulin E11.42 [facility] [address] [address] Mar, [facility] [address] [facility] [id number] [address] [place] [address] Jan, [place] [address] [address] December, [place] [address] [address] Nov, Chronic hepatitis C without hepatic coma B18.2 [place] [address] [address] Nov, Hepatitis C antibody test po sitive R76.8 [place] [address] [address] Nov, Hepatitis C antibody test po sitive R76.8 [place] [address] [place] [id number] [place] [address] Oct, Substance abuse F19.10 [place] [address] [place] [id number] [place] [address] Sep, Chronic systolic (congestive ) heart failure I50.22 [place] [address] [place] [id number] [place] [address] Sep, CHF (congestive heart failur e) I50.9 [facility] [id number] [place] [address] Sep, Chronic systolic congestive heart failure I50.22 ; Type 2 diabetes mellitus with diabetic polyneuropathy, without long-term current use of insulin E11.42 ; Substance abuse F19.10 and Depression F32.9 [place] [address] [address] Jan, Type 2 diabetes mellitus wit h diabetic polyneuropathy, without long-term current use of insulin E11.42 and Essential hypertension I10 [facility] WALK IN [facility] [address] [address] Nov, [facility] WALK IN [facility] [address] [address] Nov, Facial droop R29.810 and Cer ebrovascular accident (CVA), unspecified mechanism I63.9 [facility] WALK IN [place] [address] [address] Oct, Acute abdominal pain R10.9 a nd History of acute pancreatitis Z87.19 [place] [address] [address] Oct, [place] [address] [address] Oct, Coronary artery disease invo lving [place] coronary artery of [place] heart without angina pectoris I25.10 ; Chronic systolic congestive heart failure I50.22 and Type 2 diabetes mellitus with diabetic polyneuropathy, without long- term current use of insulin E11.42 [place] [address] [address] 20 Sep, 2017 Type 2 diabetes mellitus wit h diabetic polyneuropathy, without long-term current use of insulin E11.42 ; Persistent atrial fibrillation I48.1 ; Essential hypertension I10 and Chronic kidney disease, unspecified CKD stage N18.9 [place] [address] [address] 13 Sep, 2017 [place] [address] [address] 05 Sep, 2017 [place] [address] [address] 14 Nov, 2014 [facility] [address] [id number] [address] [place] [address], [place] [address] 13 Nov, 2014 [facility] [address] [id number] [address] [place] [address], [place] [address] 13 Oct, 2013 [facility] [address] [id number] [address] [place] [address], [place] [address] Oct, [facility] [address] [id number] [address] [place] [address], [place] [address] 17 Sep, 2013 [facility] [address] [id number] [address] [place] [address], [place] [address] Sep, [facility] [address] [id number] [address] [place] [address], [place] [address] Aug, [facility] [address] [id number] [address] [place] [address], [place] [address] Aug, [facility] [address] [id number] [address] [place] [address], [place] [address] Jun, [facility] [address] [id number] [address] [place] [address], [place] [address] Jun, [facility] [address] [id number] [address] [place] [address], [place] [address] May, [facility] [address] [id number] [address] [place] [address], [place] [address] May, [facility] [address] [id number] [address] [place] [address], [place] [address] May, [facility] [address] [id number] [address] [place] [address], [place] [address] May, [facility] [address] [id number] [address] [place] [address], [place] [address] May, [facility] [address] [id number] [address] [place] [address], [place] [address] May, [facility] [address] [facility] [id number] [address] [place] [address] 23 Apr, 2013 [facility] [address] [facility] [id number] [address] [place] [address] 16 Apr, 2013 [facility] [address] [facility] [id number] [address] [place] [address] Apr, [facility] [address] [facility] [id number] [address] [place] [address] Mar, [facility] [address] [facility] [id number] [address] [place] [address] 14 Mar, 2013 [facility] [address] [facility] [id number] [address] [place] [address] Mar, IMMUNIZATIONS No Known Immunizations SOCIAL HISTORY Never Assessed REASON FOR VISIT PLAN OF CARE VITAL SIGNS MEDICATIONS Unknown Medications RESULTS No Results PROCEDURES No Known procedures INSTRUCTIONS MEDICATIONS ADMINISTERED No Known Medications MEDICAL (GENERAL) HISTORY Type Description Date Medical History CHF Medical History NE Medical History HTN Medical History Diabetes Medical History Pneumonia Medical History Neuropathy Medical History Carter Palsy Medical History Chronic Hep C Medical History hx of kidney stones lt side Medical History hx of pancreatitis Surgical History 2 Heart caths, stent placement 09/14/17& Surgical History hernia repair Hospitalization History [facility] 09/17/17-09/21/17
--- OUTSIDE RECORDS SUMMARY | 2020-01-17 14:37 | XMS REPORT ---
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 Name Role Phone Migration, Doctor Unavailable Unavailable PROBLEMS Type Condition ICD9-CM Code DFN31-AD Code Onset Dates Condition S tatus SNOMED Code Problem Coronary artery disease invo lving [place] coronary artery of [place] heart without angina pectoris I25.10 Active 1641 478739499 Problem Essential hypertension I10 Active 49707550 Problem Type 2 diabetes mellitus wit h diabetic polyneuropathy, without long-term current use of insulin E11.42 Active 15077 006 Problem Substance abuse F19.10 Active 6621 4007 Problem Chronic systolic congestive heart failure I50.22 Active 411286187 Problem Chronic hepatitis C without hepatic coma B18.2 Active 715797191 Problem Paroxysmal atrial fibrillation I48.0 Active 609860510 Problem Depression F32.9 Active 30332104 Problem CHF (congestive heart failure) I50.9 Active 21067368 Problem Chronic systolic (congestive) heart failure I50.22 Active 274639700 ALLERGIES No Information ENCOUNTERS Encounter Location Date Diagnosis [place] [address] [facility] [id number] [address] [place] [address] Nov, Chronic hepatitis C without hepatic coma B18.2 [facility] [address] [facility] [id number] [address] [place] [address] Nov, Hepatitis C antibody test po sitive R76.8 [facility] [address] [facility] [id number] [address] [place] [address] Nov, Hepatitis C antibody test po sitive R76.8 [facility] [address] [facility] [id number] [address] [place] [address] Oct, Substance abuse F19.10 [facility] [address] [facility] [id number] [address] [place] [address] Sep, Chronic systolic (congestive ) heart failure I50.22 [place] [address] [place] [id number] [place] [address] 22 Sep, 2018 CHF (congestive heart failur e) I50.9 [place] [address] [address] Sep, Chronic systolic congestive heart failure I50.22 ; Type 2 diabetes mellitus with diabetic polyneuropathy, without long-term current use of insulin E11.42 ; Substance abuse F19.10 and Depression F32.9 [place] [address] [address] Jan, Type 2 diabetes mellitus wit h diabetic polyneuropathy, without long-term current use of insulin E11.42 and Essential hypertension I10 [facility] WALK IN [place] [address] [address] Nov, [facility] WALK IN [place] [address] [address] Nov, Facial droop R29.810 and Cer ebrovascular accident (CVA), unspecified mechanism I63.9 [facility] WALK IN [place] [address] [address] Oct, Acute abdominal pain R10.9 a nd History of acute pancreatitis Z87.19 [place] [address] [address] 15 Oct, 2017 [place] [address] [address] 13 Oct, 2017 Coronary artery disease invo lving [place] coronary artery of [place] heart without angina pectoris I25.10 ; Chronic systolic congestive heart failure I50.22 and Type 2 diabetes mellitus with diabetic polyneuropathy, without long- term current use of insulin E11.42 [place] [address] [address] 20 Sep, 2017 Type 2 diabetes mellitus wit h diabetic polyneuropathy, without long-term current use of insulin E11.42 ; Persistent atrial fibrillation I48.1 ; Essential hypertension I10 and Chronic kidney disease, unspecified CKD stage N18.9 [facility] [address] [id number] [address] [place] [address], [place] [address] 13 Sep, 2017 [facility] [address] [id number] [address] [place] [address], [place] [address] 05 Sep, 2017 [facility] [address] [id number] [address] [place] [address] 14 Nov, 2014 [facility] [address] [id number] [address] [place] [address], [place] [address] Nov, [facility] [address] [id number] [address] [place] [address], [place] [address] Oct, [facility] [address] [id number] [address] [place] [address], [place] [address] Oct, [facility] [address] [id number] [address] [place] [address], [place] [address] Sep, [facility] [address] [id number] [address] [place] [address], [place] [address] Sep, [facility] [address] [id number] [address] [place] [address], [place] [address] Aug, [facility] [address] [id number] [address] [place] [phone] Aug, [facility] [address] [id number] [address] [place] [address] Jun, [facility] [address] [id number] [address] [place] [phone] Jun, [facility] [address] [id number] [address] [place] [address], [place] [address] May, [facility] [address] [id number] [address] [place] [address] May, [facility] [address] [id number] [address] [place] [phone] May, [facility] [address] [id number] [address] [place] [address] May, [facility] [address] [id number] [address] [place] [address] May, [facility] [address] [id number] [address] [place] [phone] 04 May, 2013 [facility] [address] [id number] [address] [place] [phone] 23 Apr, 2013 [facility] [address] [id number] [address] [place] [phone] 16 Apr, 2013 [facility] [address] [id number] [address] [place] [phone] Apr, [facility] [address] [id number] [address] [place] [phone] 15 Mar, 2013 [facility] [address] [id number] [address] [place] [phone] 14 Mar, 2013 [facility] [address] [id number] [address] [place] [address] Mar, IMMUNIZATIONS No Known Immunizations SOCIAL HISTORY Never Assessed REASON FOR VISIT [facility] [place] VITAL SIGNS MEDICATIONS Unknown Medications RESULTS No Results PROCEDURES No Known procedures INSTRUCTIONS MEDICATIONS ADMINISTERED No Known Medications MEDICAL (GENERAL) HISTORY Type Description Date Medical History CHF Medical History [place] Medical History HTN Medical History Diabetes Medical History Pneumonia Medical History Neuropathy Medical History Carter Palsy Surgical History 2 Heart caths, stent placement 09/14/17& Hospitalization History [facility] 09/[facility]21[facility]
--- OUTSIDE RECORDS SUMMARY | 2020-01-17 14:37 | XMS REPORT ---
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 Name Role Phone Migration, Doctor Unavailable Unavailable PROBLEMS Type Condition ICD9-CM Code [id number] Code Onset Dates Condition S tatus SNOMED Code Problem Chronic systolic congestive heart failure I50.22 Active 505709693 Problem Coronary artery disease invo lving [place] coronary artery of [place] heart without angina pectoris I25.10 Active 1641 155886563 Problem Essential hypertension I10 Active 51003078 Problem Chronic systolic (congestive) heart failure I50.22 Active 617763492 Problem Substance abuse F19.10 Active 6621 4007 Problem Type 2 diabetes mellitus wit h diabetic polyneuropathy, without long-term current use of insulin E11.42 Active 64194 006 Problem Paroxysmal atrial fibrillation I48.0 Active 621807833 Problem Depression F32.9 Active 73978935 Problem CHF (congestive heart failure) I50.9 Active 39064335 ALLERGIES No Information ENCOUNTERS Encounter Location Date Diagnosis [place] [address] [facility] [id number] [address] [place] [address] Nov, Hepatitis C antibody test po sitive R76.8 [place] [address] [facility] [id number] [address] [place] [address] Oct, Substance abuse F19.10 [facility] [address] [facility] [id number] [address] [place] [address] Sep, Chronic systolic (congestive ) heart failure I50.22 [facility] [address] [facility] [id number] [address] [place] [address] Sep, CHF (congestive heart failur e) I50.9 [facility] [address] [facility] [id number] [address] [place] [address] Sep, Chronic systolic congestive heart failure I50.22 ; Type 2 diabetes mellitus with diabetic polyneuropathy, without long-term current use of insulin E11.42 ; Substance abuse F19.10 and Depression F32.9 [place] [address] [address] Jan, Type 2 diabetes mellitus wit h diabetic polyneuropathy, without long-term current use of insulin E11.42 and Essential hypertension I10 [facility] [address] [address] Nov, [facility] [address] [address] Nov, Facial droop R29.810 and Cer ebrovascular accident (CVA), unspecified mechanism I63.[address] [facility] [place] [address] [address] Oct, Acute abdominal pain R10.9 a nd History of acute pancreatitis Z87.[address] [address] Oct, [place] [address] [address] 13 Oct, 2017 Coronary artery disease invo lving [place] coronary artery of [place] heart without angina pectoris I25.10 ; Chronic systolic congestive heart failure I50.22 and Type 2 diabetes mellitus with diabetic polyneuropathy, without long- term current use of insulin E11.42 [place] [address] [address] 20 Sep, 2017 Type 2 diabetes mellitus wit h diabetic polyneuropathy, without long-term current use of insulin E11.42 ; Persistent atrial fibrillation I48.1 ; Essential hypertension I10 and Chronic kidney disease, unspecified CKD stage N18.9 [place] [address] [address] 13 Sep, 2017 [place] [address] [address] 05 Sep, 2017 [place] [address] [place] [address] 14 Nov, 2014 [facility] [address] [id number] [address] [place] [address], [place] [address] 13 Nov, 2014 [facility] [address] [id number] [address] [place] [address], [place] [address] 13 Oct, 2013 [facility] [address] [id number] [address] [place] [address], [place] [address] Oct, [facility] [address] [id number] [address] [place] [address], [place] [address] 17 Sep, 2013 [facility] [address] [id number] [address] [place] [address], [place] [address] Sep, [facility] [address] [id number] [address] [place] [address], [place] [address] Aug, [facility] [address] [id number] [address] [place] [address], [place] [address] Aug, [facility] [address] [id number] [address] [place] [address], [place] [address] Jun, [facility] [address] [id number] [address] [place] [address], [place] [address] Jun, [facility] [address] [id number] [address] [place] [address], [place] [address] May, [facility] [address] [id number] [address] [place] [address], [place] [address] May, [facility] [address] [id number] [address] [place] [address], [place] [address] May, [facility] [address] [id number] [address] [place] [address], [place] [address] May, [facility] [address] [id number] [address] [place] [address], [place] [address] May, [facility] [address] [id number] [address] [place] [address], [place] [address] May, [facility] [address] [id number] [address] [place] [address] 23 Apr, 2013 [facility] [address] [id number] [address] [place] [address] 16 Apr, 2013 [facility] [address] [id number] [address] [place] [address] 12 Apr, 2013 [facility] [address] [id number] [address] [place] [address] Mar, [facility] [address] [id number] [address] [place] [address] 14 Mar, 2013 [facility] [address] [id number] [address] [place] [address] Mar, IMMUNIZATIONS No Known Immunizations SOCIAL HISTORY Never Assessed REASON FOR VISIT EMR-[facility] PLAN OF CARE VITAL SIGNS MEDICATIONS Medication Instructions Dosage Frequency Start Date End Date Duration S tatus Ibuprofen 200 mg take 5 tablet by Ora l route every 4-6 hours as needed with food May, Active Lisinopril-Hydrochlorothiazide 20-25 mg take 1 tablet by Oral route 1 time per day Take in AM Aug, Active tramadol 50 mg take 1-2 tablet by O ral route every 4-6 hours as needed PRN pain May, Active GlipiZIDE 5 mg 1 tablet by Oral route 1 time per day Aug, Active Gabapentin 600 mg 1 Tablet by Oral route 3 daily PRN f or back/hip/leg pain Oct, Active metformin 1,000 mg take 1 tablet by Ora l route with morning and evening meals 2 times per day Aug, Active RESULTS No Results PROCEDURES No Known procedures INSTRUCTIONS MEDICATIONS ADMINISTERED No Known Medications MEDICAL (GENERAL) HISTORY Type Description Date Medical History CHF Medical History [place] Medical History HTN Medical History Diabetes Medical History Pneumonia Medical History Neuropathy Medical History Carter Palsy Surgical History 2 Heart caths, stent placement 09/14/17& Hospitalization History [facility] 09/[facility]/17-09/21/17
--- OUTSIDE RECORDS SUMMARY | 2020-01-17 14:37 | XMS REPORT ---
Author Author Erik Parada Doctor Organization [facility] Address Unknown Phone Unavailable Care Team Providers Care Helper Animal Laboratory Name Role Phone Migration, Doctor Unavailable Unavailable PROBLEMS Type Condition ICD9-CM Code [id number] Code Onset Dates Condition S tatus SNOMED Code Problem Chronic systolic congestive heart failure I50.22 Active 758466607 Problem Essential hypertension I10 Active 55157658 Problem Coronary artery disease invo lving [place] coronary artery of [place] heart without angina pectoris I25.10 Active 1641 342845957 Problem Depression F32.9 Active 276862471 Problem CHF (congestive heart failure) I50.9 Active 29203605 Problem Chronic systolic (congestive) heart failure I50.22 Active 016644103 Problem History of pancreatitis Z87.19 Active 14154269086426 Problem Paroxysmal atrial fibrillation I48.0 Active 810296186 Problem Kidney stone on left side N20.0 Acti ve 19043270 Problem Type 2 diabetes mellitus wit h diabetic polyneuropathy, without long-term current use of insulin E11.42 Active 22454 006 Problem Substance abuse F19.10 Active 6621 4007 Problem Chronic hepatitis C without hepatic coma B18.2 Active 254699075 Problem Polyneuropathy associated with underlying disease G63 Active 791246430 Problem Polyneuropathy associated with underlying disease G63 Active 405384459 ALLERGIES No Information ENCOUNTERS Encounter Location Date Diagnosis [facility] [address] [facility] [address] Nov, [facility] [address] [facility] [address] Oct, Chronic hepatitis C without hepatic coma B18.2 and High risk medication use Z79.899 [facility] [address] [id number] [place] [address] Sep, [facility] [address] [id number] [place] [address] Aug, Chronic hepatitis C without hepatic coma B18.2 [facility] [address] [address] Aug, Type 2 diabetes mellitus with diabetic polyneuropathy, without long-term current use of insulin E11.42 and Flank pain R10.9 [facility] [address] [address] Jul, [facility] [address] [address] Jun, [place] [address] [address] Jun, Chronic hepatitis C without hepatic coma B18.2 [place] [address] [address] Jun, Chronic hepatitis C without hepatic coma B18.2 [place] [address] [address] Jun, Chronic hepatitis C without hepatic coma B18.2 and Encounter for immunization Z23 [place] [address] [address] May, Epigastric pain R10.13 [place] [address] [address] May, CHF (congestive heart failure) I50.9 [place] [address] [address] May, Epigastric pain R10.13 ; Type 2 diabetes mellitus with diabetic polyneuropathy, without long-term current use of insulin E11.42 ; Encounter for immunization Z23 and CHF (congestive heart failure) I50.9 [facility] [address] [address] May, History of pancreatitis Z87.19 [facility] [address] [address] May, Epigastric pain R10.13 ; History of pancreatitis Z87.19 and Screening for colon cancer Z12.11 [place] [address] [address] May, [facility] [address] [address] May, Type 2 diabetes mellitus with diabetic polyneuropathy, without long-term current use of insulin E11.42 [facility] [address] [address] May, [facility] [address] [address] Apr, Type 2 diabetes mellitus with diabetic polyneuropathy, without long-term current use of insulin E11.42 ; Chronic systolic congestive heart failure I50.22 ; Chronic systolic (congestive) heart failure I50.22 ; Essential hypertension I10 ; Encounter for smoking cessation counseling Z71.6 ; Chronic hepatitis C without hepatic coma B18.2 and Polyneuropathy associated with underlying disease G63 [place] [address] [address] Apr, Chronic hepatitis C without hepatic coma B18.2 [facility] [address] [address] Apr, Type 2 diabetes mellitus with diabetic polyneuropathy, without long-term current use of insulin E11.42 [place] [address] [address] Mar, Essential hypertension I10 ; CHF (congestive heart failure) I50.9 ; Substance abuse F19.10 ; Hepatitis C antibody test positive R76.8 and Type 2 diabetes mellitus with diabetic polyneuropathy, without long-term current use of insulin E11.42 [place] [address] [address] [place] [id number] [place] [address] Mar, [place] [address] [address] Jan, [place] [address] [address] December, [place] [address] [address] Nov, Chronic hepatitis C without hepatic coma B18.2 [place] [address] [address] Nov, Hepatitis C antibody test positive R76.8 [place] [address] [address] [place] [id number] Nov, Hepatitis C antibody test positive R76.8 [place] [address] [address] Oct, Substance abuse F19.10 [place] [address] [address] Sep, Chronic systolic (congestive) heart fail ure I50.22 [place] [address] [address] Sep, CHF (congestive heart failure) I50.9 [place] [address] [address] Sep, Chronic systolic congestive heart failur e I50.22 ; Type 2 diabetes mellitus with diabetic polyneuropathy, without long-term current use of insulin E11.42 ; Substance abuse F19.10 and Depression F32.9 [place] [address] [address] Jan, Type 2 diabetes mellitus with diabetic p olyneuropathy, without long- term current use of insulin E11.42 and Essential hypertension I10 [facility] [address] [address] Nov, [facility] [address] [address] Nov, Facial droop R29.810 and Cer ebrovascular accident (CVA), unspecified mechanism I63.9 [facility] [address] [address] Oct, Acute abdominal pain R10.9 a nd History of acute pancreatitis Z87.19 [place] [address] [address] 15 Oct, 2017 [facility] [address] [place] [id number] [place] [address] 13 Oct, 2017 Coronary artery disease involving [place] coronary artery of [place] heart without angina pectoris I25.10 ; Chronic systolic congestive heart failure I50.22 and Type 2 diabetes mellitus with diabetic polyneuropathy, without long- term current use of insulin E11.42 [facility] [address] [address] 20 Sep, 2017 Type 2 diabetes mellitus with diabetic p olyneuropathy, without long- term current use of insulin E11.42 ; Persistent atrial fibrillation I48.1 ; Essential hypertension I10 and Chronic kidney disease, unspecified CKD stage N18.9 [facility] [address] [address] 13 Sep, 2017 [facility] [address] [address] 05 Sep, 2017 [facility] [address] [address] 14 Nov, 2014 [facility] [address] [address] Nov, [facility] [address] [address] Oct, [facility] [address] [address] Oct, [facility] [address] [address] Sep, [facility] [address] [address] Sep, [facility] [address] [address] Aug, [facility] [address] [address] Aug, [facility] [address] [address] Jun, [facility] [address] [id number] [place] [address] Jun, [facility] [address] [place] [id number] [place] [address] May, [facility] [address] [place] [id number] [place] [address] May, [facility] [address] [place] [id number] [place] [address] May, [facility] [address] [place] [id number] [place] [address] May, [facility] [address] [address] May, [facility] [address] [place] [id number] [place] [address] May, [facility] [address] [place] [id number] [place] [address] Apr, [facility] [address] [place] [id number] [place] [address] Apr, [facility] [address] [place] [id number] [place] [address] Apr, [facility] [address] [place] [id number] [place] [address] Mar, [facility] [address] [place] [id number] [place] [address] Mar, [facility] [address] [place] [id number] [place] [address] Mar, IMMUNIZATIONS No Known Immunizations SOCIAL HISTORY [...] History hx of kidney stones lt side Surgical History 2 Heart caths, stent placement 09/14/17& Surgical History hernia repair Hospitalization History [facility] 09/17/17-09/21/17
--- OUTSIDE RECORDS SUMMARY | 2020-01-17 14:37 | XMS REPORT ---
Author Author Erik Parada Doctor Organization [facility] Address Unknown Phone Unavailable Care Team Providers Care Director Index Name Role Phone Migration, Doctor Unavailable Unavailable PROBLEMS Type Condition ICD9-CM Code [id number] Code Onset Dates Condition S tatus SNOMED Code Problem Chronic systolic congestive heart failure I50.22 Active 857183611 Problem Essential hypertension I10 Active 04761753 Problem Coronary artery disease invo lving [place] coronary artery of [place] heart without angina pectoris I25.10 Active 1641 262466309 Problem Depression F32.9 Active 296735394 Problem CHF (congestive heart failure) I50.9 Active 82276753 Problem Chronic systolic (congestive) heart failure I50.22 Active 752304728 Problem History of pancreatitis Z87.19 Active 66669008552245 Problem Paroxysmal atrial fibrillation I48.0 Active 368080404 Problem Kidney stone on left side N20.0 Acti ve 91083187 Problem Type 2 diabetes mellitus wit h diabetic polyneuropathy, without long-term current use of insulin E11.42 Active 40973 006 Problem Substance abuse F19.10 Active 6621 4007 Problem Chronic hepatitis C without hepatic coma B18.2 Active 660600790 Problem Polyneuropathy associated with underlying disease G63 Active 703638376 Problem Polyneuropathy associated with underlying disease G63 Active 604896618 ALLERGIES No Information ENCOUNTERS Encounter Location Date Diagnosis [facility] [address] [facility] [address] Nov, [facility] [address] [facility] [address] Oct, [facility] [id number] [place] [address] Sep, [facility] [address] [facility] [place] [address] Aug, Chronic hepatitis C without hepatic coma B18.2 [facility] [id number] [place] [address] Aug, Type 2 diabetes mellitus with diabetic polyneuropathy, without long-term current use of insulin E11.42 and Flank pain R10.9 [place] [address] [address] Jul, [facility] [address] [address] Jun, [facility] [address] [address] Jun, Chronic hepatitis C without hepatic coma B18.2 [place] [address] [address] Jun, Chronic hepatitis C without hepatic coma B18.2 [place] [address] [address] Jun, Chronic hepatitis C without hepatic coma B18.2 and Encounter for immunization Z23 [address] [address] May, Epigastric pain R10.13 [place] [address] [address] May, CHF (congestive heart failure) I50.9 [place] [address] [address] May, Epigastric pain R10.13 ; Type 2 diabetes mellitus with diabetic polyneuropathy, without long-term current use of insulin E11.42 ; Encounter for immunization Z23 and CHF (congestive heart failure) I50.9 [place] [address] [address] May, History of pancreatitis Z87.19 [place] [address] [address] May, Epigastric pain R10.13 ; History of pancreatitis Z87.19 and Screening for colon cancer Z12.11 [place] [address] [address] May, [place] [address] [address] May, Type 2 diabetes mellitus with diabetic polyneuropathy, without long-term current use of insulin E11.42 [facility] [address] [address] May, [facility] [id number] [place] [address] Apr, Type 2 diabetes mellitus with diabetic polyneuropathy, without long-term current use of insulin E11.42 ; Chronic systolic congestive heart failure I50.22 ; Chronic systolic (congestive) heart failure I50.22 ; Essential hypertension I10 ; Encounter for smoking cessation counseling Z71.6 ; Chronic hepatitis C without hepatic coma B18.2 and Polyneuropathy associated with underlying disease G63 [place] [address] [address] Apr, Chronic hepatitis C without hepatic coma B18.2 [facility] [id number] [place] [address] Apr, Type 2 diabetes mellitus with diabetic polyneuropathy, without long-term current use of insulin E11.42 [facility] [id number] [place] [address] Mar, Essential hypertension I10 ; CHF (congestive heart failure) I50.9 ; Substance abuse F19.10 ; Hepatitis C antibody test positive R76.8 and Type 2 diabetes mellitus with diabetic polyneuropathy, without long-term current use of insulin E11.42 [place] [address] [address] Mar, [facility] [address] [address] Jan, [place] [address] [address] December, [place] [address] [address] Nov, Chronic hepatitis C without hepatic coma B18.2 [place] [address] [address] Nov, Hepatitis C antibody test positive R76.8 [place] [address] [place] [address] [place] [address] Nov, Hepatitis C antibody test positive R76.8 [place] [address] [place] [place] [address] Oct, Substance abuse F19.10 [place] [address] [address] Sep, Chronic systolic (congestive) heart fail ure I50.22 [place] [address] [address] Sep, CHF (congestive heart failure) I50.9 [place] [address] [address] Sep, Chronic systolic congestive heart failur e I50.22 ; Type 2 diabetes mellitus with diabetic polyneuropathy, without long-term current use of insulin E11.42 ; Substance abuse F19.10 and Depression F32.9 [place] [address] [address] Jan, Type 2 diabetes mellitus with diabetic p olyneuropathy, without long- term current use of insulin E11.42 and Essential hypertension I10 [facility] [place] [address] [place] [address] [id number] [place] [address] Nov, [facility] [place] [address] [place] [id number] [place] [address] Nov, Facial droop R29.810 and Cer ebrovascular accident (CVA), unspecified mechanism I63.9 [facility] [address] [address] Oct, Acute abdominal pain R10.9 a nd History of acute pancreatitis Z87.19 [place] [address] [address] Oct, [place] [address] [place] [address] 13 Oct, 2017 Coronary artery disease involving sokaogon coronary artery of [place]oka[place] heart without angina pectoris I25.10 ; Chronic systolic congestive heart failure I50.22 and Type 2 diabetes mellitus with diabetic polyneuropathy, without long- term current use of insulin E11.42 [facility] [id number] [place] [address] 20 Sep, 2017 Type 2 diabetes mellitus with diabetic p olyneuropathy, without long- term current use of insulin E11.42 ; Persistent atrial fibrillation I48.1 ; Essential hypertension I10 and Chronic kidney disease, unspecified CKD stage N18.9 [facility] [address] [address] 13 Sep, 2017 [facility] [address] [address] 05 Sep, 2017 [facility] [address] [address] 14 Nov, 2014 [facility] [address] [address] Nov, [facility] [address] [address] Oct, [facility] [address] [address] Oct, [facility] [address] [address] Sep, [facility] [address] [address] Sep, [facility] [address] [address] Aug, [facility] [address] [address] Aug, [facility] [address] [address] Jun, [facility] [address] [address] Jun, [facility] [address] [facility] [place] [address] May, [facility] [address] [facility] [place] [address] May, [facility] [address] [facility] [place] [address] May, [facility] [address] [facility] [place] [address] May, [facility] [address] [facility] [place] [address] May, [facility] [address] [facility] [place] [address] May, [facility] [address] [facility] [place] [address] Apr, [facility] [address] [facility] [place] [address] Apr, [facility] [address] [facility] [place] [address] Apr, [facility] [address] [facility] [place] [address] Mar, [facility] [address] [facility] [place] [address] Mar, [facility] [address] [facility] [place] [address] Mar, IMMUNIZATIONS No Known Immunizations SOCIAL HISTORY Never Assessed REASON FOR VISIT PLAN OF CARE VITAL SIGNS MEDICATIONS Unknown Medications RESULTS No Results PROCEDURES No Known procedures INSTRUCTIONS MEDICATIONS ADMINISTERED No Known Medications MEDICAL (GENERAL) HISTORY Type Description Date Medical History CHF Medical History [place] Medical History HTN Medical History Diabetes Medical History Pneumonia Medical History Neuropathy Medical History Carter Palsy Medical History Chronic Hep C Medical History hx of kidney stones lt side Surgical History 2 Heart caths, stent placement 09/14/17& Surgical History hernia repair Hospitalization History [facility] 09/17/17-09/21/17
--- OUTSIDE RECORDS SUMMARY | 2020-01-17 14:37 | XMS REPORT ---
Author Author Erik PALACIOS Organization [facility] Address [address] [place] [address] Care Team Providers Care Pricing Intern Name Role Phone PAYTON PALACIOS Unavailable PROBLEMS Type Condition ICD9-CM Code YIH03-UK Code Onset Dates Condition S tatus SNOMED Code Problem Paroxysmal atrial fibrillation I48.0 Active 684244949 Problem Essential hypertension I10 Active 41155371 Problem Chronic systolic congestive heart failure I50.22 Active 476209939 Problem Type 2 diabetes mellitus wit h diabetic polyneuropathy, without long-term current use of insulin E11.42 Active 51919 006 Problem Coronary artery disease invo lving [place] coronary artery of [place] heart without angina pectoris I25.10 Active 1641 084497134 ALLERGIES No Information ENCOUNTERS Encounter Location Date Diagnosis [facility] [address] [address] Jan, Type 2 diabetes mellitus wit h diabetic polyneuropathy, without long-term current use of insulin E11.42 and Essential hypertension I10 [facility] [address] [place] [id number] [place] [address] Nov, [facility] [address] [place] [id number] [place] [address] Nov, Facial droop R29.810 and Cer ebrovascular accident (CVA), unspecified mechanism I63.9 [facility] [address] [place] [id number] [place] [address] Oct, Acute abdominal pain R10.9 a nd History of acute pancreatitis Z87.19 [facility] [address] [place] [id number] [place] [address] Oct, [facility] [address] [place] [id number] [place] [address] 13 Oct, 2017 Coronary artery disease invo lving [place] coronary artery of [place] heart without angina pectoris I25.10 ; Chronic systolic congestive heart failure I50.22 and Type 2 diabetes mellitus with diabetic polyneuropathy, without long- term current use of insulin E11.42 [facility] [address] [id number] [address] [place] [address] 20 Sep, 2018 Type 2 diabetes mellitus wit h diabetic polyneuropathy, without long-term current use of insulin E11.42 ; Persistent atrial fibrillation I48.1 ; Essential hypertension I10 and Chronic kidney disease, unspecified CKD stage N18.9 [facility] [address] [id number] [address] [place] [address] 13 Sep, 2017 [facility] [address] [id number] [address] [place] [address] 05 Sep, 2017 [facility] [address] [id number] [address] [place] [address] 14 Nov, 2014 [facility] [address] [id number] [address] [place] [address] Nov, [facility] [address] [id number] [address] [place] [address] Oct, [facility] [address] [id number] [address] [place] [address] Oct, [facility] [address] [id number] [address] [place] [address] Sep, [facility] [address] [id number] [address] [place] [address] Sep, [facility] [address] [id number] [address] [place] [address] Aug, [facility] [address] [id number] [address] [place] [address] Aug, [facility] [address] [id number] [address] [place] [address] Jun, [facility] [address] [id number] [address] [place] [address] Jun, [facility] [address] [id number] [address] [place] [address] May, [facility] [address] [id number] [address] [place] [address] May, [facility] [address] [id number] [address] [place] [address] May, [facility] [address] [id number] [address] [place] [address] May, [facility] [address] [id number] [address] [place] [address] May, [facility] [address] [id number] [address] [place] [address] May, [facility] [address] [id number] [address] [place] [address] Apr, [facility] [address] [id number] [address] [place] [address] Apr, [facility] [address] [id number] [address] [place] [address] Apr, [facility] [address] [id number] [address] [place] [address] Mar, [facility] [address] [id number] [address] [place] [address] Mar, [facility] [address] [id number] [address] [place] [address] Mar, IMMUNIZATIONS No Known Immunizations SOCIAL HISTORY Never Assessed REASON FOR VISIT PLAN OF CARE VITAL SIGNS MEDICATIONS Unknown Medications RESULTS No Results PROCEDURES No Known procedures INSTRUCTIONS MEDICATIONS ADMINISTERED No Known Medications MEDICAL (GENERAL) HISTORY Type Description Date Medical History CHF Medical History [place] Medical History HTN Medical History Diabetes Medical History Pneumonia Medical History Neuropathy Medical History Carter Palsy Surgical History 2 Heart caths, stent placement 09/14/17& Hospitalization History [facility] 09/17/17-09/21/17
--- OUTSIDE RECORDS SUMMARY | 2020-01-17 14:37 | XMS REPORT ---
Author Author Erik PALACIOS Organization [facility] Address [address] [place] [address] Care Team Providers Care Community Outreach Manager Name Role Phone PAYTON PALACIOS Unavailable PROBLEMS Type Condition ICD9-CM Code [id number] Code Onset Dates Condition S tatus SNOMED Code Problem Paroxysmal atrial fibrillation I48.0 Active 029458923 Problem Essential hypertension I10 Active 77204136 Problem Chronic systolic congestive heart failure I50.22 Active 382481746 Problem Type 2 diabetes mellitus wit h diabetic polyneuropathy, without long-term current use of insulin E11.42 Active 74658 006 Problem Coronary artery disease invo lving [place] coronary artery of [place] heart without angina pectoris I25.10 Active 1641 [id number] ALLERGIES No Known Allergies ENCOUNTERS Encounter Location Date Diagnosis [facility] [address] [facility] [id number] [address] [place] [address] Jan, Type 2 diabetes mellitus wit h diabetic polyneuropathy, without long-term current use of insulin E11.42 and Essential hypertension I10 [facility] [address] [place] [id number] [place] [address] Nov, [facility] [address] [id number] [place] [address] Nov, Facial droop R29.810 and Cer ebrovascular accident (CVA), unspecified mechanism I63.9 [facility] [address] [facility] [id number] [address] [place] [address] Oct, Acute abdominal pain R10.9 a nd History of acute pancreatitis Z87.19 [facility] [address] [place] [id number] [place] [address] Oct, [facility] [id number] [place] [address] 13 Oct, 2017 Coronary artery disease invo lving [place] coronary artery of [place] heart without angina pectoris I25.10 ; Chronic systolic congestive heart failure I50.22 and Type 2 diabetes mellitus with diabetic polyneuropathy, without long- term current use of insulin E11.42 [facility] [address] [id number] [address] [place] [address] 20 Sep, 2018 Type 2 diabetes mellitus wit h diabetic polyneuropathy, without long-term current use of insulin E11.42 ; Persistent atrial fibrillation I48.1 ; Essential hypertension I10 and Chronic kidney disease, unspecified CKD stage N18.9 [facility] [address] [id number] [address] [place] [address] 13 Sep, 2017 [facility] [address] [id number] [address] [place] [address] 05 Sep, 2017 [facility] [address] [id number] [address] [place] [address] 14 Nov, 2014 [facility] [address] [id number] [address] [place] [address] Nov, [facility] [address] [id number] [address] [place] [address] Oct, [facility] [address] [id number] [address] [place] [address] Oct, [facility] [address] [id number] [address] [place] [address] Sep, [facility] [address] [id number] [address] [place] [address] Sep, [facility] [address] [id number] [address] [place] [address] Aug, [facility] [address] [id number] [address] [place] [address] Aug, [facility] [address] [id number] [address] [place] [address] Jun, [facility] [address] [id number] [address] [place] [address] Jun, [facility] [address] [id number] [address] [place] [address] May, [facility] [address] [id number] [address] [place] [address] May, [facility] [address] [id number] [address] [place] [address] May, [facility] [address] [id number] [address] [place] [address] May, [facility] [address] [id number] [address] [place] [address] May, [facility] [address] [id number] [address] [place] [address] May, [facility] [address] [id number] [address] [place] [address] Apr, [facility] [address] [id number] [address] [place] [address] Apr, [facility] [address] [id number] [address] [place] [address] Apr, [facility] [address] [id number] [address] [place] [address] Mar, [facility] [address] [id number] [address] [place] [address] Mar, [facility] [address] [id number] [address] [place] [address] Mar, IMMUNIZATIONS No Known Immunizations SOCIAL HISTORY Never Assessed REASON FOR VISIT walk in f/u, PT reports that he went to the [facility] and was diagnosed with bells pal sy on his right side of his face. PT notes it has been tough but getting better- Bob KEEN , PT reports he was having stomach/pancreas pains so he went to the [facility] where they said they were unable to do anything but his levels were somewhat high. -Bob Porras PLAN OF CARE Activity Details Follow Up 3 Months Reason: VITAL SIGNS Height 71 in 2018-01-14 Weight 198.9 lbs 2018-01-14 Temperature 98.1 degrees Fahrenheit 2018-01-14 Heart Rate 73 bpm 2018-01-14 Respiratory Rate 20 2018-01-14 BMI 27.74 kg/m2 2018-01-14 Blood pressure systolic 138 mmHg 2018-01-14 Blood pressure diastolic 80 mmHg 2018-01-14 MEDICATIONS Medication Instructions Dosage Frequency Start Date End Date Duration S leai GlipiZIDE 10 mg Orally Once a day 1 tablet 24h Sep, 30 day(s) Active Lyrica 150 MG Orally Three times a day 1 capsule 8h Jan, Active Lisinopril 20 MG Orally Once a day 1 tablet 24h Active Metformin HCl 1000 MG Orally Twice a day 1 tablet with meals 12h Sep, 30 day(s) Active Clopidogrel Bisulfate 75 MG Orally Once a day 1 tablet 24h Active Gabapentin 600 MG Orally 3 times a day 1 Tablet by Oral ro danilo 3 daily PRN for back/hip/leg pain 8h Oct, Active Aspir-Low 81 MG Orally Once a day 1 tablet 24h Active Atorvastatin Calcium 40 MG Orally Once a day 1 tablet 24h Active Metoprolol Tartrate 50 MG Orally Twice a day 1 tablet 12h Active Amlodipine Besylate 5 MG Orally Once a day 1 tablet 24h Active Furosemide 40 mg Orally Once a day 1 tablet 24h Active RESULTS Name Result Date Reference Range A1C (IN HOUSE) 2018-01-14 A1C IN HOUSE 9.2 4.3 - 5.6 % Previous A1c 11.1 Lot [id number] Exp date 10/2019 PROCEDURES Procedure Date Ordered Result Body Site GLYCATED HEMOGLOBIN TEST January 14, 2018 INSTRUCTIONS MEDICATIONS ADMINISTERED No Known Medications MEDICAL (GENERAL) HISTORY Type Description Date Medical History CHF Medical History [place] Medical History HTN Medical History Diabetes Medical History Pneumonia Medical History Neuropathy Medical History Carter Palsy Surgical History 2 Heart caths, stent placement 09/14/17& Hospitalization History [facility] 09/17/17-09/21/17
--- OUTSIDE RECORDS SUMMARY | 2020-01-17 14:37 | XMS REPORT ---
Author Author Erik Parada Doctor Organization [facility] Address Unknown Phone Unavailable Care Team Providers Care Handstitching Machine Collar Feller Name Role Phone Migration, Doctor Unavailable Unavailable PROBLEMS Type Condition ICD9-CM Code AMA13-TT Code Onset Dates Condition S tatus SNOMED Code Problem Chronic systolic congestive heart failure I50.22 Active 030830273 Problem Essential hypertension I10 Active 83285857 Problem Coronary artery disease invo [place]ving [place] coronary artery of [place] heart without angina pectoris I25.10 Active 1641 441476263 Problem Depression F32.9 Active 128330675 Problem CHF (congestive heart failure) I50.9 Active 23651663 Problem Chronic systolic (congestive) heart failure I50.22 Active 053212536 Problem History of pancreatitis Z87.19 Active 05777459752225 Problem Paroxysmal atrial fibrillation I48.0 Active 344467500 Problem Kidney stone on left side N20.0 Acti ve 43658744 Problem Type 2 diabetes mellitus wit h diabetic polyneuropathy, without long-term current use of insulin E11.42 Active 11299 006 Problem Substance abuse F19.10 Active 6621 4007 Problem Chronic hepatitis C without hepatic coma B18.2 Active 001826411 Problem Polyneuropathy associated with underlying disease G63 Active 851082780 Problem Polyneuropathy associated with underlying disease G63 Active 415962341 ALLERGIES No Information ENCOUNTERS Encounter Location Date Diagnosis [facility] [address] [facility] [address] Nov, [facility] [address] [facility] [address] Oct, Chronic hepatitis C without hepatic coma B18.2 and High risk medication use Z79.899 [facility] [address] [facility] [place] [address] Sep, [facility] [address] [facility] [place] [address] Aug, Chronic hepatitis C without hepatic coma B18.2 [facility] [address] [address] Aug, Type 2 diabetes mellitus with diabetic polyneuropathy, without long-term current use of insulin E11.42 and Flank pain R10.9 [facility] [address] [address] Jul, [facility] [address] [address] Jun, [place] [address] [address] Jun, Chronic hepatitis C without hepatic coma B18.2 [place] [address] [address] Jun, Chronic hepatitis C without hepatic coma B18.2 [place] [address] [address] Jun, Chronic hepatitis C without hepatic coma B18.2 and Encounter for immunization Z23 [place] [address] [address] May, Epigastric pain R10.13 [place] [address] [address] May, CHF (congestive heart failure) I50.9 [place] [address] [address] May, Epigastric pain R10.13 ; Type 2 diabetes mellitus with diabetic polyneuropathy, without long-term current use of insulin E11.42 ; Encounter for immunization Z23 and CHF (congestive heart failure) I50.9 [facility] [address] [address] May, History of pancreatitis Z87.19 [facility] [address] [address] May, Epigastric pain R10.13 ; History of pancreatitis Z87.19 and Screening for colon cancer Z12.11 [place] [address] [address] May, [facility] [address] [address] May, Type 2 diabetes mellitus with diabetic polyneuropathy, without long-term current use of insulin E11.42 [facility] [address] [address] May, [facility] [address] [address] Apr, Type 2 diabetes mellitus with diabetic polyneuropathy, without long-term current use of insulin E11.42 ; Chronic systolic congestive heart failure I50.22 ; Chronic systolic (congestive) heart failure I50.22 ; Essential hypertension I10 ; Encounter for smoking cessation counseling Z71.6 ; Chronic hepatitis C without hepatic coma B18.2 and Polyneuropathy associated with underlying disease G63 [place] [address] [address] Apr, Chronic hepatitis C without hepatic coma B18.2 [facility] [address] [address] Apr, Type 2 diabetes mellitus with diabetic polyneuropathy, without long-term current use of insulin E11.42 [place] [address] [address] Mar, Essential hypertension I10 ; CHF (congestive heart failure) I50.9 ; Substance abuse F19.10 ; Hepatitis C antibody test positive R76.8 and Type 2 diabetes mellitus with diabetic polyneuropathy, without long-term current use of insulin E11.42 [place] [address] [place] [id number] [place] [address] Mar, [place] [address] [address] Jan, [place] [address] [address] December, [place] [address] [address] Nov, Chronic hepatitis C without hepatic coma B18.2 [place] [address] [address] Nov, Hepatitis C antibody test positive R76.8 [place] [address] [place] [id number] Nov, Hepatitis C antibody test positive R76.8 [place] [address] [address] Oct, Substance abuse F19.10 [place] [address] [address] Sep, Chronic systolic (congestive) heart fail ure I50.22 [place] [address] [address] Sep, CHF (congestive heart failure) I50.9 [place] [address] [address] Sep, Chronic systolic congestive heart failur e I50.22 ; Type 2 diabetes mellitus with diabetic polyneuropathy, without long-term current use of insulin E11.42 ; Substance abuse F19.10 and Depression F32.9 [place] [address] [address] Jan, Type 2 diabetes mellitus with diabetic p olyneuropathy, without long- term current use of insulin E11.42 and Essential hypertension I10 [facility] [address] [address] Nov, [facility] [address] [address] Nov, Facial droop R29.810 and Cer ebrovascular accident (CVA), unspecified mechanism I63.9 [facility] [address] [address] Oct, Acute abdominal pain R10.9 a nd History of acute pancreatitis Z87.19 [place] [address] [address] 15 Oct, 2017 [facility] [address] [place] [id number] [place] [address] 13 Oct, 2017 Coronary artery disease involving [place] coronary artery of [place] heart without angina pectoris I25.10 ; Chronic systolic congestive heart failure I50.22 and Type 2 diabetes mellitus with diabetic polyneuropathy, without long- term current use of insulin E11.42 [facility] [address] [address] 20 Sep, 2017 Type 2 diabetes mellitus with diabetic p olyneuropathy, without long- term current use of insulin E11.42 ; Persistent atrial fibrillation I48.1 ; Essential hypertension I10 and Chronic kidney disease, unspecified CKD stage N18.9 [facility] [address] [address] 13 Sep, 2017 [facility] [address] [address] 05 Sep, 2017 [facility] [address] [address] 14 Nov, 2014 [facility] [address] [address] Nov, [facility] [address] [address] Oct, [facility] [address] [address] Oct, [facility] [address] [address] Sep, [facility] [address] [address] Sep, [facility] [address] [address] Aug, [facility] [address] [address] Aug, [facility] [address] [address] Jun, [facility] [address] [facility] [place] [address] Jun, [facility] [address] [place] [id number] [place] [address] May, [facility] [address] [place] [id number] [place] [address] May, [facility] [address] [place] [id number] [place] [address] May, [facility] [address] [place] [id number] [place] [address] May, [facility] [address] [place] [id number] [place] [address] May, [facility] [address] [place] [id number] [place] [address] May, [facility] [address] [place] [id number] [place] [address] Apr, [facility] [address] [place] [id number] [place] [address] 16 Apr, 2013 [facility] [address] [place] [id number] [place] [address] Apr, [facility] [address] [place] [id number] [place] [address] 15 Mar, 2013 [facility] [address] [place] [id number] [place] [address] 14 Mar, 2013 [facility] [address] [place] [id number] [place] [address] Mar, IMMUNIZATIONS No Known Immunizations SOCIAL HISTORY Never Assessed REASON FOR VISIT PLAN OF CARE VITAL SIGNS Height 71 in 2013-08-26 Weight 183.3 lbs 2013-08-26 Temperature 97.8 degrees Fahrenheit 2013-08-26 Heart Rate 100 bpm 2013-08-26 Respiratory Rate 18 2013-08-26 Blood pressure systolic 148 mmHg 2013-08-26 Blood pressure diastolic 82 mmHg 2013-08-26 MEDICATIONS Unknown Medications RESULTS No Results PROCEDURES Procedure Date Ordered Result Body Site FOOT EXAM PERFORMED Aug 26, 2013 GLYCATED HEMOGLOBIN TEST Aug 26, 2013 INSTRUCTIONS MEDICATIONS ADMINISTERED No Known Medications MEDICAL (GENERAL) HISTORY Type Description Date Medical History CHF Medical History [place] Medical History HTN Medical History Diabetes Medical History Pneumonia Medical History Neuropathy Medical History Carter Palsy Medical History Chronic Hep C Medical History hx of kidney stones lt side Surgical History 2 Heart caths, stent placement 09/14/17& Surgical History hernia repair Hospitalization History [facility] 09/17/17-09/21/17
--- OUTSIDE RECORDS SUMMARY | 2020-01-17 14:37 | XMS REPORT ---
Author Author Erik GRAY Y Organization [facility] Address [address] [place] [address] Care Team Providers Care Welder Fitter Helper Name Role Phone BLAYNE GRAY Unavailable PROBLEMS Type Condition ICD9-CM Code GUH87-OW Code Onset Dates Condition S tatus SNOMED Code Problem Paroxysmal atrial fibrillation I48.0 Active 115891780 Problem Essential hypertension I10 Active 53246288 Problem Chronic systolic congestive heart failure I50.22 Active 524997368 Problem Type 2 diabetes mellitus wit h diabetic polyneuropathy, without long-term current use of insulin E11.42 Active 16627 006 Problem Coronary artery disease invo lving [place] coronary artery of [place] heart without angina pectoris I25.10 Active 1641 [id number] ALLERGIES No Known Allergies ENCOUNTERS Encounter Location Date Diagnosis [facility] [address] [place] [id number] [place] [address] Jan, Type 2 diabetes mellitus wit h diabetic polyneuropathy, without long-term current use of insulin E11.42 and Essential hypertension I10 [facility] [address] [place] [id number] [place] [address] Nov, [facility] [address] [facility] [id number] [address] [place] [address] Nov, Facial droop R29.810 and Cer ebrovascular accident (CVA), unspecified mechanism I63.9 [facility] [address] [facility] [id number] [address] [place] [address] Oct, Acute abdominal pain R10.9 a nd History of acute pancreatitis Z87.19 [facility] [address] [facility] [id number] [address] [place] [address] Oct, [facility] [address] [place] [id number] [place] [address] 13 Oct, 2017 Coronary artery disease invo lving [place] coronary artery of [place] heart without angina pectoris I25.10 ; Chronic systolic congestive heart failure I50.22 and Type 2 diabetes mellitus with diabetic polyneuropathy, without long- term current use of insulin E11.42 [facility] [address] [id number] [address] [place] [address] 20 Sep, 2017 Type 2 diabetes mellitus wit h diabetic polyneuropathy, without long-term current use of insulin E11.42 ; Persistent atrial fibrillation I48.1 ; Essential hypertension I10 and Chronic kidney disease, unspecified CKD stage N18.9 [facility] [address] [id number] [address] [place] [address] [address], [address] [facility] [address] [id number] [address] [place] [address] [address], [address] [facility] [address] [id number] [address] [place] [address] [address], [address] [facility] [address] [id number] [address] [place] [address] Nov, [facility] [address] [id number] [address] [place] [address] [address], [address] [facility] [address] [id number] [address] [place] [address] Oct, [facility] [address] [id number] [address] [place] [address] [address], [address] [facility] [address] [id number] [address] [place] [address] Sep, [facility] [address] [id number] [address] [place] [address] Aug, [facility] [address] [id number] [address] [place] [address] Aug, [facility] [address] [id number] [address] [place] [address] Jun, [facility] [address] [id number] [address] [place] [address] Jun, [facility] [address] [id number] [address] [place] [address] May, [facility] [address] [id number] [address] [place] [address] May, [facility] [address] [id number] [place] [address] May, [facility] [address] [id number] [address] [place] [address] May, [facility] [address] [id number] [address] [place] [address] May, [facility] [address] [id number] [address] [place] [address] May, [facility] [address] [id number] [address] [place] [address] Apr, [facility] [address] [id number] [address] [place] [address] Apr, [facility] [address] [id number] [address] [place] [address] Apr, [facility] [address] [id number] [address] [place] [address] Mar, [facility] [address] [id number] [address] [place] [address] Mar, [facility] [address] [id number] [address] [place] [address] Mar, IMMUNIZATIONS No Known Immunizations SOCIAL HISTORY Never Assessed REASON FOR VISIT right side of face is numb since this am. pt has right sided facial drooping. gr ips are equal et firm. pt is A/O X4. with current hx...going to send pt to fo r evaluation. report given to JUNG cadena, pt is able to raise eye brows, right s felisha not as well as left. pt is able to puff out cheeks, right side weaker than l eft. pt is able to repeat "no ands ifs or buts" without difficulty. pt is able to smile, right side drooping. , MICROBIOLOGY SOIL SCIENTIST recommends immediate eval in ER with CT Head et further treatment PLAN OF CARE Activity Details Follow Up prn Reason: VITAL SIGNS Height 71 in 2017-11-13 Weight 200.0 lbs 2017-11-13 Temperature 98.4 degrees Fahrenheit 2017-11-13 Heart Rate 66 bpm 2017-11-13 Respiratory Rate 20 2017-11-13 BMI 27.89 kg/m2 2017-11-13 Blood pressure systolic 142 mmHg 2017-11-13 Blood pressure diastolic 74 mmHg 2017-11-13 MEDICATIONS Medication Instructions Dosage Frequency Start Date End Date Duration S tatus Clopidogrel Bisulfate 75 MG Orally Once a day 1 tablet 24h Active Atorvastatin Calcium 40 MG Orally Once a day 1 tablet 24h Active Lisinopril 20 MG Orally Once a day 1 tablet 24h Active GlipiZIDE 10 mg Orally Once a day 1 tablet 24h Sep, 30 day(s) Active Amlodipine Besylate 5 MG Orally Once a day 1 tablet 24h Active Metoprolol Tartrate 50 MG Orally Twice a day 1 tablet 12h Active Furosemide 40 mg Orally Once a day 1 tablet 24h Active Aspir-Low 81 MG Orally Once a day 1 tablet 24h Active Metformin HCl 1000 MG Orally Twice a day 1 tablet with meals 12h Sep, 30 day(s) Active Gabapentin 600 MG Orally 3 times a day 1 Tablet by Oral ro tlingit & haida 3 daily PRN for back/hip/leg pain 8h 13 Oct, 2013 Active RESULTS No Results PROCEDURES No Known procedures INSTRUCTIONS MEDICATIONS ADMINISTERED No Known Medications MEDICAL (GENERAL) HISTORY Type Description Date Medical History CHF Medical History [place] Medical History HTN Medical History Diabetes Medical History Pneumonia Medical History Neuropathy Medical History Carter Palsy Surgical History 2 Heart caths, stent placement 09/14/17& Hospitalization History [facility] 09/17/17-09/21/17
--- OUTSIDE RECORDS SUMMARY | 2020-01-17 14:37 | XMS REPORT ---
Author Author Erik PALACIOS Organization [facility] Address [address] [place] [address] Care Team Providers Care Foreign Language Professor Name Role Phone PAYTON PALACIOS Unavailable PROBLEMS Type Condition ICD9-CM Code DZL25-RT Code Onset Dates Condition S tatus SNOMED Code Problem Paroxysmal atrial fibrillation I48.0 Active 823392772 Problem Essential hypertension I10 Active 52511925 Problem Chronic systolic congestive heart failure I50.22 Active 725941637 Problem Type 2 diabetes mellitus wit h diabetic polyneuropathy, without long-term current use of insulin E11.42 Active 22103 006 Problem Coronary artery disease invo lving nez perce coronary artery of nez perce heart without angina pectoris I25.10 Active 1641 [id number] ALLERGIES No Known Allergies ENCOUNTERS Encounter Location Date Diagnosis [facility] [address] [facility] [id number] [address] [place] [phone] Jan, Type 2 diabetes mellitus wit h diabetic polyneuropathy, without long-term current use of insulin E11.42 and Essential hypertension I10 [facility] [address] [id number] [address] [place] [phone] Nov, [facility] [address] [id number] [address] [place] [phone] Nov, Facial droop R29.810 and Cer ebrovascular accident (CVA), unspecified mechanism I63.9 [facility] [address] [facility] [id number] [address] [place] [phone] Oct, Acute abdominal pain R10.9 a nd History of acute pancreatitis Z87.19 [facility] [address] [facility] [id number] [address] [place] [phone] Oct, [facility] [address] [id number] [address] [place] [phone] 13 Oct, 2017 Coronary artery disease invo lving nez perce coronary artery of nez perce heart without angina pectoris I25.10 ; Chronic systolic congestive heart failure I50.22 and Type 2 diabetes mellitus with diabetic polyneuropathy, without long- term current use of insulin E11.42 [facility] [address] [id number] [address] [place] [phone] 20 Sep, 2018 Type 2 diabetes mellitus wit h diabetic polyneuropathy, without long-term current use of insulin E11.42 ; Persistent atrial fibrillation I48.1 ; Essential hypertension I10 and Chronic kidney disease, unspecified CKD stage N18.9 [facility] [address] [id number] [address] [place] [phone] 13 Sep, 2017 [facility] [address] [id number] [address] [place] [phone] 05 Sep, 2017 [facility] [address] [id number] [address] [place] [phone] 14 Nov, 2014 [facility] [address] [id number] [address] [place] [phone] Nov, [facility] [address] [id number] [address] [place] [phone] Oct, [facility] [address] [id number] [address] [place] [phone] Oct, [facility] [address] [id number] [address] [place] [phone] Sep, [facility] [address] [id number] [address] [place] [phone] Sep, [facility] [address] [id number] [address] [place] [phone] Aug, [facility] [address] [id number] [address] [place] [phone] Aug, [facility] [address] [id number] [address] [place] [phone] Jun, [facility] [address] [id number] [address] [place] [phone] Jun, [facility] [address] [id number] [address] [place] [phone] May, [facility] [address] [id number] [address] [place] [phone] May, [facility] [address] [id number] [address] [place] [phone] May, [facility] [address] [id number] [address] [place] [phone] May, [facility] [address] [id number] [address] [place] [phone] May, [facility] [address] [id number] [address] [place] [phone] May, [facility] [address] [id number] [address] [place] [phone] Apr, [facility] [address] [id number] [address] [place] [phone] Apr, [facility] [address] [id number] [address] [place] [phone] Apr, [facility] [address] [id number] [address] [place] [phone] Mar, [facility] [address] [id number] [address] [place] [phone] Mar, [facility] [address] [id number] [address] [place] [phone] Mar, IMMUNIZATIONS No Known Immunizations SOCIAL HISTORY Never Assessed REASON FOR VISIT Establish Care- Dottie Wyatt RN, PHQ2, AUDIT C PLAN OF CARE Activity Details Follow Up 2 Months Reason: VITAL SIGNS Height 71 in 2017-10-20 Weight 196 lbs 2017-10-20 Temperature 98.7 degrees Fahrenheit 2017-10-20 Heart Rate 74 bpm 2017-10-20 Respiratory Rate 18 2017-10-20 BMI 27.33 kg/m2 2017-10-20 Blood pressure systolic 128 mmHg 2017-10-20 Blood pressure diastolic 62 mmHg 2017-10-20 MEDICATIONS Medication Instructions Dosage Frequency Start Date End Date Duration S tatus Amlodipine Besylate 5 MG Orally Once a [...] 1 tablet 24h Sep, 30 day(s) Active Aspir-Low 81 MG Orally Once a day 1 tablet 24h Active Furosemide 40 mg Orally Once a day 1 tablet 24h Active Gabapentin 600 MG Orally 3 times a day 1 Tablet by Oral ro danilo 3 daily PRN for back/hip/leg pain 8h Oct, Active Lisinopril 20 MG Orally Once a day 1 tablet 24h Active Metoprolol Tartrate 50 MG Orally Twice a day 1 tablet 12h Active RESULTS No Results PROCEDURES Procedure Date Ordered Result Body Site BASIC METABOLIC PANEL October 20, 2017 VENIPUNCT, ROUTINE* October 20, 2017 INSTRUCTIONS MEDICATIONS ADMINISTERED No Known Medications MEDICAL (GENERAL) HISTORY Type Description Date Medical History CHF Medical History [place] Medical History HTN Medical History Diabetes Medical History Pneumonia Medical History Neuropathy Medical History Carter Palsy Surgical History 2 Heart caths, stent placement 09/14/17& Hospitalization History Maria Dy 09/17/17-09/21/17
--- OUTSIDE RECORDS SUMMARY | 2020-01-17 14:37 | XMS REPORT ---
Author Author Erik GRAY Y Organization [facility] Address [address] [place] [address] Care Team Providers Care Cement Storage Worker Name Role Phone BLAYNE GRAY Unavailable PROBLEMS Type Condition ICD9-CM Code MWG96-LT Code Onset Dates Condition S tatus SNOMED Code Problem Paroxysmal atrial fibrillation I48.0 Active 564704506 Problem Essential hypertension I10 Active 80824692 Problem Chronic systolic congestive heart failure I50.22 Active 184915488 Problem Type 2 diabetes mellitus wit h diabetic polyneuropathy, without long-term current use of insulin E11.42 Active 93255 006 Problem Coronary artery disease invo lving galena coronary artery of galena heart without angina pectoris I25.10 Active 1641 [id number] ALLERGIES No Known Allergies ENCOUNTERS Encounter Location Date Diagnosis [facility] [address] [id number] [address] [place] [phone] Jan, Type 2 diabetes mellitus wit h diabetic polyneuropathy, without long-term current use of insulin E11.42 and Essential hypertension I10 [facility] [address] [id number] [address] [place] [phone] Nov, [facility] [address] [facility] [id number] [address] [place] [phone] Nov, Facial droop R29.810 and Cer ebrovascular accident (CVA), unspecified mechanism I63.9 [facility] [address] [facility] [id number] [address] [place] [phone] Oct, Acute abdominal pain R10.9 a nd History of acute pancreatitis Z87.19 [facility] [address] [facility] [id number] [address] [place] [phone] Oct, [facility] [address] [id number] [address] [place] [phone] 13 Oct, 2017 Coronary artery disease invo lving galena coronary artery of galena heart without angina pectoris I25.10 ; Chronic systolic congestive heart failure I50.22 and Type 2 diabetes mellitus with diabetic polyneuropathy, without long- term current use of insulin E11.42 [facility] [address] [id number] [address] [place] [phone] 20 Sep, 2017 Type 2 diabetes mellitus wit h diabetic polyneuropathy, without long-term current use of insulin E11.42 ; Persistent atrial fibrillation I48.1 ; Essential hypertension I10 and Chronic kidney disease, unspecified CKD stage N18.9 [facility] [address] [id number] [address] [place] [phone] 13 Sep, 2017 [facility] [address] [id number] [address] [place] [phone] 05 Sep, 2017 [facility] [address] [id number] [address] [place] [phone] 14 Nov, 2014 [facility] [address] [id number] [address] [place] [phone] Nov, [facility] [address] [id number] [address] [place] [phone] 13 Oct, 2013 [facility] [address] [id number] [address] [place] [phone] Oct, [facility] [address] [id number] [address] [place] [phone] 17 Sep, 2013 [facility] [address] [id number] [address] [place] [phone] Sep, [facility] [address] [id number] [address] [place] [phone] Aug, [facility] [address] [id number] [address] [place] [phone] Aug, [facility] [address] [id number] [address] [place] [phone] Jun, [facility] [address] [id number] [address] [place] [phone] Jun, [facility] [address] [id number] [address] [place] [phone] May, [facility] [address] [id number] [address] [place] [phone] May, [facility] [address] [id number] [address] [place] [phone] May, [facility] [address] [id number] [address] [place] [phone] May, [facility] [address] [id number] [address] [place] [phone] May, [facility] [address] [id number] [address] [place] [phone] May, [facility] [address] [id number] [address] [place] [phone] Apr, [facility] [address] [id number] [address] [place] [phone] Apr, [facility] [address] [id number] [address] [place] [phone] Apr, [facility] [address] [id number] [address] [place] [phone] Mar, [facility] [address] [id number] [address] [place] [phone] Mar, [facility] [address] [id number] [address] [place] [phone] Mar, IMMUNIZATIONS No Known Immunizations SOCIAL HISTORY Never Assessed REASON FOR VISIT upper abdominal pain/ back pain- unable to sleep or eat- says it feels exactly l demario acute pancreatitis JStrasserRN PLAN OF CARE Activity Details Follow Up prn Reason: VITAL SIGNS Height 71 in 2017-10-29 Weight 197.4 lbs 2017-10-29 Temperature 97.2 degrees Fahrenheit 2017-10-29 Heart Rate 64 bpm 2017-10-29 Respiratory Rate 20 2017-10-29 BMI 27.53 kg/m2 2017-10-29 Blood pressure systolic 138 mmHg 2017-10-29 Blood pressure diastolic 66 mmHg 2017-10-29 MEDICATIONS Medication Instructions Dosage Frequency Start Date End Date Duration S leia Clopidogrel Bisulfate 75 MG Orally Once a day 1 tablet 24h Active Lisinopril 20 MG Orally Once a day 1 tablet 24h Active Aspir-Low 81 MG Orally Once a day 1 tablet 24h Active Metoprolol Tartrate 50 MG Orally Twice a day 1 tablet 12h Active Atorvastatin Calcium 40 MG Orally Once a day 1 tablet 24h Active Metformin HCl 1000 MG Orally Twice a day 1 tablet with meals 12h Sep, 30 day(s) Active Furosemide 40 mg Orally Once a day 1 tablet 24h Active Amlodipine Besylate 5 MG Orally Once a day 1 tablet 24h Active GlipiZIDE 10 mg Orally Once a day 1 tablet 24h Sep, 30 day(s) Active Gabapentin 600 MG Orally 3 times a day 1 Tablet by Oral ro [place] 3 daily PRN for back/hip/leg pain 8h Oct, Active RESULTS No Results PROCEDURES No Known procedures INSTRUCTIONS MEDICATIONS ADMINISTERED No Known Medications MEDICAL (GENERAL) HISTORY Type Description Date Medical History CHF Medical History [place] Medical History HTN Medical History Diabetes Medical History Pneumonia Medical History Neuropathy Medical History Carter Palsy Surgical History 2 Heart caths, stent placement 09/14/17& Hospitalization History Kassandra 09/17/17-09/21/17
--- OUTSIDE RECORDS SUMMARY | 2020-01-17 14:37 | XMS REPORT | Continuity of Care Document ---
Author Author [facility] Organization [facility] Address Unknown Phone Unavailable Care Team Providers Care Skydiving Instructor Name Role Phone [facility] Insurance Providers Payer Name Policy Number Subscriber Name Relationship Self Pay Anjum Mota E Ii 01 Self / Same As Patient Advance Directives Directive Response Recor ded Date Advance Directives N 10/20 1:24pm Organ Donor N 04/12/13 1 :24pm Problems No Known Problems or Medical conditions. Social History History Response Recorde d Date/Time Alcohol Use Past History 04/12/13 1:24pm Recreational Drug Use N 04/12/13 1:24pm Recent Foreign Travel N 04/12/13 1:24pm Recent Infectious Disease Exposure N 04/12/13 1:24pm Hospitalization with Isolation Denies 04/12/13 1:24pm Sexually Transmitted Disease N 04/12/13 1:24pm HIV/AIDS N 04/12/13 1:24 pm Allergies, Adverse Reactions, Alerts Allergen Type Severity Reaction Last Updated No Known Drug Allergies 02/07/13 Medications Medication Dose Units Route Sig Qty Days Hydrocodone Bit/Acetaminophen (Hydrocodo n-Acetaminophn 10-325) 1 Each PO Q6H 30 HCTZ/Lisinopril (Lisinopril-Hctz 10-12.5 Mg Tab) 1 Each PO DAILY Metformin HCl (Metformin 500 Mg) 1000 Mg PO BID Gabapentin (Neurontin) 1000 Mg PO TID Tramadol HCl (Ultram) 50 Mg PO Q6H 20 Polyethylene Glycol (Miralax 17 Gm Packet) 17 Gm GT DAILY 30 Metronidazole (Flagyl 500 Mg) 1 Each PO BID 7 Ciprofloxacin (Cipro) 1 Tab PO BID 7 [aldopine] 10 Mg PO DAILY Lisinopril (Zestril) 10 Mg PO DAILY Response Recorded Date/Time Status not known Unknown Results No Known Relevant Diagnostic Tests, Laboratory Data and/or Discharge Summary. Encounters Encounter Location Date/ Time Departed Emergency Room [facility] 04/12/13 1:20pm
--- OUTSIDE RECORDS SUMMARY | 2020-01-17 14:37 | XMS REPORT ---
Author Author Erik PALACIOS Organization [facility] Address [address] [place] [address] Care Team Providers Care Shellfish Bed Worker Name Role Phone PAYTON PALACIOS Unavailable PROBLEMS Type Condition ICD9-CM Code KAH73-SK Code Onset Dates Condition S tatus SNOMED Code Problem Paroxysmal atrial fibrillation I48.0 Active 097842653 Problem Essential hypertension I10 Active 01150530 Problem Chronic systolic congestive heart failure I50.22 Active 381772195 Problem Type 2 diabetes mellitus wit h diabetic polyneuropathy, without long-term current use of insulin E11.42 Active 30664 006 Problem Coronary artery disease invo lving hopi coronary artery of hopi heart without angina pectoris I25.10 Active 1641 [id number] ALLERGIES No Information ENCOUNTERS Encounter Location Date Diagnosis [facility] [address] [phone] Jan, Type 2 diabetes mellitus wit h diabetic polyneuropathy, without long-term current use of insulin E11.42 and Essential hypertension I10 [facility] [address] [id number] [address] [place] [phone] Nov, [facility] [address] [id number] [address] [place] [phone] Nov, Facial droop R29.810 and Cer ebrovascular accident (CVA), unspecified mechanism I63.9 [facility] [address] [id number] [address] [place] [phone] Oct, Acute abdominal pain R10.9 a nd History of acute pancreatitis Z87.19 [facility] [address] [id number] [address] [place] [phone] Oct, [facility] [id number] [place] [phone] 13 Oct, 2017 Coronary artery disease invo lving hopi coronary artery of hopi heart without angina pectoris I25.10 ; Chronic systolic congestive heart failure I50.22 and Type 2 diabetes mellitus with diabetic polyneuropathy, without long- term current use of insulin E11.42 [facility] [address] [id number] [address] [place] [phone] 20 Sep, 2018 Type 2 diabetes mellitus wit h diabetic polyneuropathy, without long-term current use of insulin E11.42 ; Persistent atrial fibrillation I48.1 ; Essential hypertension I10 and Chronic kidney disease, unspecified CKD stage N18.9 [facility] [address] [id number] [address] [place] [phone] 13 Sep, 2017 [facility] [address] [id number] [address] [place] [phone] 05 Sep, 2017 [facility] [address] [id number] [address] [place] [phone] 14 Nov, 2014 [facility] [address] [id number] [address] [place] [phone] Nov, [facility] [address] [id number] [address] [place] [phone] Oct, [facility] [address] [id number] [address] [place] [phone] Oct, [facility] [address] [id number] [address] [place] [phone] Sep, [facility] [address] [id number] [address] [place] [phone] Sep, [facility] [address] [id number] [address] [place] [phone] Aug, [facility] [address] [id number] [address] [place] [phone] Aug, [facility] [address] [id number] [address] [place] [phone] Jun, [facility] [address] [id number] [address] [place] [phone] Jun, [facility] [address] [id number] [address] [place] [phone] May, [facility] [address] [id number] [address] [place] [phone] May, [facility] [address] [id number] [address] [place] [phone] May, [facility] [address] [id number] [address] [place] [phone] May, [facility] [address] [id number] [address] [place] [phone] May, [facility] [address] [id number] [address] [place] [phone] May, [facility] [address] [id number] [address] [place] [phone] Apr, [facility] [address] [id number] [address] [place] [phone] Apr, [facility] [address] [id number] [address] [place] [phone] Apr, [facility] [address] [id number] [address] [place] [phone] Mar, [facility] [address] [id number] [address] [place] [phone] Mar, [facility] [address] [id number] [address] [place] [phone] Mar, IMMUNIZATIONS No Known Immunizations SOCIAL HISTORY [...]
--- OUTSIDE RECORDS SUMMARY | 2020-01-17 14:37 | XMS REPORT ---
Author Author Erik GRAY Y Organization [facility] Address [address] [place] [address] Care Team Providers Care Rand Sewer Name Role Phone BLAYNE GRAY Unavailable PROBLEMS Type Condition ICD9-CM Code HYT38-RP Code Onset Dates Condition S tatus SNOMED Code Problem Paroxysmal atrial fibrillation I48.0 Active 594747955 Problem Essential hypertension I10 Active 09937861 Problem Chronic systolic congestive heart failure I50.22 Active 750125353 Problem Type 2 diabetes mellitus wit h diabetic polyneuropathy, without long-term current use of insulin E11.42 Active 68400 006 Problem Coronary artery disease invo lving [place] coronary artery of [place] heart without angina pectoris I25.10 Active 1641 [id number] ALLERGIES No Information ENCOUNTERS Encounter Location Date Diagnosis [facility] [address] [facility] [id number] [address] [place] [phone] Jan, Type 2 diabetes mellitus wit h diabetic polyneuropathy, without long-term current use of insulin E11.42 and Essential hypertension I10 [facility] [address] [place] [id number] [address] [place] [phone] Nov, [facility] [address] [facility] [id number] [address] [place] [phone] Nov, Facial droop R29.810 and Cer ebrovascular accident (CVA), unspecified mechanism I63.9 [facility] [address] [facility] [id number] [address] [place] [phone] Oct, Acute abdominal pain R10.9 a nd History of acute pancreatitis Z87.19 [facility] [address] [facility] [id number] [address] [place] [phone] Oct, [facility] [address] [facility] [id number] [address] [place] [phone] 13 Oct, 2017 Coronary artery disease invo lving [place] coronary artery of [place] heart without angina pectoris I25.10 ; Chronic systolic congestive heart failure I50.22 and Type 2 diabetes mellitus with diabetic polyneuropathy, without long- term current use of insulin E11.42 [facility] [address] [id number] [address] [place] [phone] 20 Sep, 2017 Type 2 diabetes mellitus wit h diabetic polyneuropathy, without long-term current use of insulin E11.42 ; Persistent atrial fibrillation I48.1 ; Essential hypertension I10 and Chronic kidney disease, unspecified CKD stage N18.9 [facility] [address] [id number] [address] [place] [phone] 13 Sep, 2017 [facility] [address] [id number] [address] [place] [phone] 05 Sep, 2017 [facility] [address] [id number] [address] [place] [phone] 14 Nov, 2014 [facility] [address] [id number] [address] [place] [phone] Nov, [facility] [address] [id number] [address] [place] [id number] 13 Oct, 2013 [facility] [address] [id number] [address] [place] [phone] Oct, [facility] [address] [id number] [address] [place] [phone] 17 Sep, 2013 [facility] [address] [id number] [address] [place] [phone] Sep, [facility] [address] [id number] [address] [place] [phone] Aug, [facility] [address] [id number] [address] [place] [phone] Aug, [facility] [address] [id number] [address] [place] [phone] Jun, [facility] [address] [id number] [address] [place] [phone] Jun, [facility] [address] [id number] [address] [place] [phone] May, [facility] [address] [id number] [address] [place] [phone] May, [facility] [address] [id number] [address] [place] [phone] May, [facility] [address] [id number] [address] [place] [phone] May, [facility] [address] [id number] [address] [place] [phone] May, [facility] [address] [id number] [address] [place] [phone] May, [facility] [address] [id number] [address] [place] [phone] Apr, [facility] [address] [id number] [address] [place] [phone] Apr, [facility] [address] [id number] [address] [place] [phone] Apr, [facility] [address] [id number] [address] [place] [phone] Mar, [facility] [address] [id number] [address] [place] [phone] Mar, [facility] [address] [id number] [address] [place] [phone] Mar, IMMUNIZATIONS No Known Immunizations SOCIAL HISTORY Never Assessed REASON FOR VISIT PLAN OF CARE VITAL SIGNS MEDICATIONS Unknown Medications RESULTS No Results PROCEDURES No Known procedures INSTRUCTIONS MEDICATIONS ADMINISTERED No Known Medications MEDICAL (GENERAL) HISTORY Type Description Date Medical History CHF Medical History [place] Medical History HTN Medical History Diabetes Medical History Pneumonia Medical History Neuropathy Medical History Carter Palsy Surgical History 2 Heart caths, stent placement 09/14/17& Hospitalization History [facility] 09/17/17-09/21/17
--- OUTSIDE RECORDS SUMMARY | 2020-01-17 14:37 | XMS REPORT ---
Author Author Erik PALACIOS Organization [facility] Address [address] [place] [address] Care Team Providers Care Painting Manager Name Role Phone PAYTON PALACIOS Unavailable PROBLEMS Type Condition ICD9-CM Code RTR80-IQ Code Onset Dates Condition S tatus SNOMED Code Problem Paroxysmal atrial fibrillation I48.0 Active 071332630 Problem Essential hypertension I10 Active 40759496 Problem Chronic systolic congestive heart failure I50.22 Active 601140587 Problem Type 2 diabetes mellitus wit h diabetic polyneuropathy, without long-term current use of insulin E11.42 Active 09394 006 Problem Coronary artery disease invo [place]ving [place] coronary artery of [place] heart without angina pectoris I25.10 Active 1641 [id number] ALLERGIES No Information ENCOUNTERS Encounter Location Date Diagnosis [facility] [address] [phone] Jan, Type 2 diabetes mellitus wit h diabetic polyneuropathy, without long-term current use of insulin E11.42 and Essential hypertension I10 [facility] [address] [place] [id number] [address] [place] [phone] Nov, [facility] [address] [place] [id number] [address] [place] [phone] Nov, Facial droop R29.810 and Cer ebrovascular accident (CVA), unspecified mechanism I63.9 [facility] [address] [place] [id number] [address] [place] [phone] Oct, Acute abdominal pain R10.9 a nd History of acute pancreatitis Z87.19 [facility] [address] [place] [id number] [address] [place] [phone] Oct, [facility] [address] [place] [id number] [place] [phone] 13 Oct, 2017 Coronary artery disease invo lving [place] coronary artery of [place] heart without angina pectoris I25.10 ; Chronic systolic congestive heart failure I50.22 and Type 2 diabetes mellitus with diabetic polyneuropathy, without long- term current use of insulin E11.42 [facility] [address] [id number] [address] [place] [phone] 20 Sep, 2018 Type 2 diabetes mellitus wit h diabetic polyneuropathy, without long-term current use of insulin E11.42 ; Persistent atrial fibrillation I48.1 ; Essential hypertension I10 and Chronic kidney disease, unspecified CKD stage N18.9 [facility] [address] [id number] [address] [place] [phone] 13 Sep, 2017 [facility] [address] [id number] [address] [place] [phone] 05 Sep, 2017 [facility] [address] [id number] [address] [place] [phone] 14 Nov, 2014 [facility] [address] [id number] [address] [place] [phone] Nov, [facility] [address] [id number] [address] [place] [phone] Oct, [facility] [address] [id number] [address] [place] [phone] Oct, [facility] [address] [id number] [address] [place] [phone] Sep, [facility] [address] [id number] [address] [place] [phone] Sep, [facility] [address] [id number] [address] [place] [phone] Aug, [facility] [address] [id number] [address] [place] [phone] Aug, [facility] [address] [id number] [address] [place] [phone] Jun, [facility] [address] [id number] [address] [place] [phone] Jun, [facility] [address] [id number] [address] [place] [phone] May, [facility] [address] [id number] [address] [place] [phone] May, [facility] [address] [id number] [address] [place] [phone] May, [facility] [address] [id number] [address] [place] [phone] May, [facility] [address] [id number] [address] [place] [phone] May, [facility] [address] [id number] [address] [place] [phone] May, [facility] [address] [id number] [address] [place] [phone] Apr, [facility] [address] [id number] [address] [place] [phone] Apr, [facility] [address] [id number] [address] [place] [phone] Apr, [facility] [address] [id number] [address] [place] [phone] Mar, [facility] [address] [id number] [address] [place] [phone] Mar, [facility] [address] [id number] [address] [place] [phone] Mar, IMMUNIZATIONS No Known Immunizations SOCIAL HISTORY Never Assessed REASON FOR VISIT lab results PLAN OF CARE VITAL SIGNS MEDICATIONS Unknown Medications RESULTS No Results PROCEDURES No Known procedures INSTRUCTIONS MEDICATIONS ADMINISTERED No Known Medications MEDICAL (GENERAL) HISTORY Type Description Date Medical History CHF Medical History [place] Medical History HTN Medical History Diabetes Medical History Pneumonia Medical History Neuropathy Medical History Carter Palsy Surgical History 2 Heart caths, stent placement 09/14/17& Hospitalization History [facility]/17-[facility]/17
--- OUTSIDE RECORDS SUMMARY | 2020-01-17 14:37 | XMS REPORT ---
Author Author Erik Parada Doctor Organization [facility] Address Unknown Phone Unavailable Care Team Providers Care Spot Washer Name Role Phone Migration, Doctor Unavailable Unavailable PROBLEMS Type Condition ICD9-CM Code [id number] Code Onset Dates Condition S tatus SNOMED Code Problem Coronary artery disease invo lving [place] coronary artery of [place] heart without angina pectoris I25.10 Active 1641 298583465 Problem Essential hypertension I10 Active 40791723 Problem Type 2 diabetes mellitus wit h diabetic polyneuropathy, without long-term current use of insulin E11.42 Active 95705 006 Problem Substance abuse F19.10 Active 6621 4007 Problem Chronic systolic congestive heart failure I50.22 Active 944123348 Problem Chronic hepatitis C without hepatic coma B18.2 Active 902012812 Problem Paroxysmal atrial fibrillation I48.0 Active 302385686 Problem Depression F32.9 Active 39242965 Problem CHF (congestive heart failure) I50.9 Active 68627751 Problem Chronic systolic (congestive) heart failure I50.22 Active [id number] ALLERGIES No Information ENCOUNTERS Encounter Location Date Diagnosis [place] [address] [facility] [id number] [address] [place] [phone] 16 Nov, 2018 Chronic hepatitis C without hepatic coma B18.2 [facility] [address] [facility] [id number] [address] [place] [phone] Nov, Hepatitis C antibody test po sitive R76.8 [facility] [address] [facility] [id number] [address] [place] [phone] Nov, Hepatitis C antibody test po sitive R76.8 [facility] [address] [facility] [id number] [address] [place] [phone] Oct, Substance abuse F19.10 [facility] [address] [facility] [id number] [address] [place] [phone] Sep, Chronic systolic (congestive ) heart failure I50.22 [place] [address] [place] [id number] [address] [place] [phone] 22 Sep, 2018 CHF (congestive heart failur e) I50.9 [place] [address] [address] Sep, Chronic systolic congestive heart failure I50.22 ; Type 2 diabetes mellitus with diabetic polyneuropathy, without long-term current use of insulin E11.42 ; Substance abuse F19.10 and Depression F32.9 [place] [address] [address] Jan, Type 2 diabetes mellitus wit h diabetic polyneuropathy, without long-term current use of insulin E11.42 and Essential hypertension I10 [facility] [place] [address] [address] Nov, [facility] [place] [address] [address] Nov, Facial droop R29.810 and Cer ebrovascular accident (CVA), unspecified mechanism I63.9 [facility] [place] [address] [address] Oct, Acute abdominal pain R10.9 a nd History of acute pancreatitis Z87.19 [place] [address] [address] 15 Oct, 2017 [place] [address] [address] 13 Oct, 2017 Coronary artery disease invo lving [place] coronary artery of [place] heart without angina pectoris I25.10 ; Chronic systolic congestive heart failure I50.22 and Type 2 diabetes mellitus with diabetic polyneuropathy, without long- term current use of insulin E11.42 [place] [address] [phone] 20 Sep, 2017 Type 2 diabetes mellitus wit h diabetic polyneuropathy, without long-term current use of insulin E11.42 ; Persistent atrial fibrillation I48.1 ; Essential hypertension I10 and Chronic kidney disease, unspecified CKD stage N18.9 [facility] [address] [id number] [address] [place] [address], [place] [address] 13 Sep, 2017 [facility] [address] [id number] [address] [place] [address], [place] [address] 05 Sep, 2017 [facility] [address] [id number] [address] [place] [phone] 14 Nov, 2014 [facility] [address] [id number] [address] [place] [address], [place] [address] Nov, [facility] [address] [id number] [address] [place] [address], [place] [address] Oct, [facility] [address] [id number] [address] [place] [address], [place] [address] Oct, [facility] [address] [id number] [address] [place] [address], [place] [address] Sep, [facility] [address] [id number] [address] [place] [address], [place] [address] Sep, [facility] [address] [id number] [address] [place] [address], [place] [address] Aug, [facility] [address] [id number] [address] [place] [phone] Aug, [facility] [address] [id number] [address] [place] [phone] Jun, [facility] [address] [id number] [address] [place] [phone] Jun, [facility] [address] [id number] [address] [place] [address], [place] [address] May, [facility] [address] [id number] [address] [place] [phone] May, [facility] [address] [id number] [address] [place] [phone] May, [facility] [address] [id number] [address] [place] [phone] May, [facility] [address] [id number] [address] [place] [phone] May, [facility] [address] [id number] [address] [place] [phone] 04 May, 2013 [facility] [address] [id number] [address] [place] [phone] 23 Apr, 2013 [facility] [address] [id number] [address] [place] [address] 16 Apr, 2013 [facility] [address] [id number] [address] [place] [address] Apr, [facility] [address] [id number] [address] [place] [phone] 15 Mar, 2013 [facility] [address] [id number] [address] [place] [phone] 14 Mar, 2013 [facility] [address] [id number] [address] [place] [phone] Mar, IMMUNIZATIONS No Known Immunizations SOCIAL HISTORY Never Assessed REASON FOR VISIT [facility] [place]AN OF CARE VITAL SIGNS MEDICATIONS Unknown Medications RESULTS No Results PROCEDURES No Known procedures INSTRUCTIONS MEDICATIONS ADMINISTERED No Known Medications MEDICAL (GENERAL) HISTORY Type Description Date Medical History CHF Medical History [place] Medical History HTN Medical History Diabetes Medical History Pneumonia Medical History Neuropathy Medical History Carter Palsy Surgical History 2 Heart caths, stent placement 09/14/17& Hospitalization History [facility] 09/[facility]/17-09/21/17
--- OUTSIDE RECORDS SUMMARY | 2020-01-17 14:38 | XMS REPORT | Continuity of Care Document ---
Author Organization Unknown Address Unknown Phone Unavailable Allergies Active Description Code Type Severity Reaction Onset Reported/Identified Relationship to Patient Clinical Status Yes No Known Drug Allergies [id number] Drug Allergy Unknown N/A 02/07/2013 Medications There is no data. Problems Date Dx Coded Attending Type Code Diagnosis Diagnosed By 02/07/2013 TRIPP DAVID, REED T Ot 250.00 DIAB DION WO COMPL, TYPE II OR UNSPEC TY 02/07/2013 TRIPP DAVID, REED T Ot 305.1 TOBACCO USE DISORDER 02/07/2013 TRIPP DAVID, REED T Ot 355.9 MONONEURITIS NOS 02/07/2013 TRIPP DAVID, REED T Ot 401.9 HYPERTENSION NOS 02/07/2013 TRIPP DAVID, REED T Ot 553.1 UMBILICAL HERNIA 02/07/2013 TRIPP DAVID, REED T Ot 558.9 NONINF GASTROENTERIT NEC 02/07/2013 TRIPP DAVID, REED T Ot 564.00 UNSPEC CONSTIPATION 02/07/2013 TRIPP DAVID, REED T Ot 599.0 URIN TRACT INFECTION NOS 02/07/2013 TRIPP DAVID, REED T Ot 789.00 ABDOMINAL PAIN, UNSPECIFIED SITE 03/21/2013 250.60 JOAQUIN BETES WITH NEUROLOGICAL MANIFESTATIONS TYPE II OR UNSPECIFIED TYPE NOT STATED UNCONTROLLED 03/21/2013 401.1 HYPE RTENSION, BENIGN ESSENTIAL 03/21/2013 553.1 UMBI LICAL HERNIA WITHOUT OBSTRUCTION OR GANGRENE 03/21/2013 V11.3 PERS ONAL HISTORY OF ALCOHOLISM 03/21/2013 V65.42 COU NSELING - SMOKING CESSATION 03/21/2013 V70.0 ROUT INE GENERAL MEDICAL EXAMINATION AT A HEALTH CARE FACILITY 03/21/2013 BRYANT DOE DO 250.60 DIABETES WITH NEUROLOGICAL MANIFESTATIONS TYPE II OR UNSPECIFIED TYPE NOT STATED UNCONTROLLED 03/21/2013 BRYANT DOE DO 401.1 HYPERTENSION, BENIGN ESSENTIAL 03/21/2013 BROOK DO BRYANT K 553.1 UMBILICAL HERNIA WITHOUT [...] FACILITY 04/12/2013 BRADY DAVID, BRANDON Catherine Ot 789. 00 ABDOMINAL PAIN, UNSPECIFIED SITE 04/25/2013 DOE DO, [...] OR UNSPEC TY 06/21/2013 EMILIANO DAVID, DEV Pierre Ot 553.20 VENTRAL HERNIA NOS 09/10/2017 OSEGUERA DO, MAURICIO Ot E11.22 TYPE 2 DIABETES MELLITUS W DIABETIC PHARMACY INNOVATION ASSISTANT 09/10/2017 OSEGUERA DO, MAURICIO Ot E11.40 TYPE 2 DIABETES MELLITUS WITH DIABETIC N 09/10/2017 OSEGUERA DO, MAURICIO Ot E78.5 HYPERLIPIDEMIA, UNSPECIFIED 09/10/2017 OSEGUERA DO, MAURICIO Ot F17.21 0 NICOTINE DEPENDENCE, CIGARETTES, UNCOMPL 09/10/2017 OSEGUERA DO, MAURICIO Ot I13.0 HYP HRT CHR KDNY DIS W HRT FAIL AND ST 09/10/2017 OSEGUERA DO, MAURICIO Ot I21.4 NON-ST ELEVATION (NSTEMI) MYOCARDIAL INF 09/10/2017 OSEGUERA DO, MAURICIO Ot I50.9 HEART FAILURE, UNSPECIFIED 09/10/2017 OSEGUERA DO, MAURICIO Ot J44.1 CHRONIC OBSTRUCTIVE PULMONARY DISEASE W 09/10/2017 OSEGUERA DO, MAURICIO Ot J96.90 RESPIRATORY FAILURE, UNSP, UNSP W HYPOXI 09/10/2017 OSEGUERA DO, MAURICIO Ot N18.9 CHRONIC KIDNEY DISEASE, UNSPECIFIED 09/10/2017 OSEGUERA DO, MAURICIO Ot Z79.84 INDEX EDITOR (CURRENT) USE OF ORAL HYPOGLYC 09/11/2017 OSEGUERA DO, MAURICIO Ot E11.22 TYPE 2 DIABETES MELLITUS W DIABETIC PHARMACY INNOVATION ASSISTANT 09/11/2017 OSEGUERA DO, MAURICIO Ot E11.40 TYPE 2 DIABETES MELLITUS WITH DIABETIC N 09/11/2017 OSEGUERA DO, MAURICIO Ot E78.5 HYPERLIPIDEMIA, UNSPECIFIED 09/11/2017 OSEGUERA DO, MAURICIO Ot F17.21 0 NICOTINE DEPENDENCE, CIGARETTES, UNCOMPL 09/11/2017 OSEGUERA DO, [...] UNSPECIFIED 09/11/2017 OSEGUERA DO, MAURICIO Ot Z79.84 INDEX EDITOR (CURRENT) USE OF ORAL HYPOGLYC 09/11/2017 OSEGUERA DO, MAURICIO Ot E11.22 TYPE 2 DIABETES MELLITUS W DIABETIC PHARMACY INNOVATION ASSISTANT 09/11/2017 OSEGUERA DO, MAURICIO Ot E11.40 TYPE 2 DIABETES MELLITUS WITH DIABETIC N 09/11/2017 OSEGUERA DO, MAURICIO Ot E78.5 HYPERLIPIDEMIA, UNSPECIFIED 09/11/2017 OSEGUERA DO, MAURICIO Ot F17.21 0 NICOTINE DEPENDENCE, CIGARETTES, UNCOMPL 09/11/2017 OSEGUERA DO, [...] UNSPECIFIED 09/11/2017 OSEGUERA DO, MAURICIO Ot Z79.84 INDEX EDITOR (CURRENT) USE OF ORAL HYPOGLYC 09/12/2017 OSEGUERA DO, MAURICIO Ot E11.22 TYPE 2 DIABETES MELLITUS W DIABETIC PHARMACY INNOVATION ASSISTANT 09/12/2017 OSEGUERA DO, MAURICIO Ot E11.40 TYPE 2 DIABETES MELLITUS WITH DIABETIC N 09/12/2017 OSEGUERA DO, MAURICIO Ot E78.5 HYPERLIPIDEMIA, UNSPECIFIED 09/12/2017 OSEGUERA DO, MAURICIO Ot F17.21 0 NICOTINE DEPENDENCE, CIGARETTES, UNCOMPL 09/12/2017 OSEGUERA DO, [...] UNSPECIFIED 09/12/2017 OSEGUERA DO, MAURICIO Ot Z79.84 SENIOR LIVING (CURRENT) USE OF ORAL HYPOGLYC 09/13/2017 OSEGUERA DO, MAURICIO Ot E11.22 TYPE 2 DIABETES MELLITUS W DIABETIC PHARMACY INNOVATION ASSISTANT 09/13/2017 OSEGUERA DO, MAURICIO Ot E11.40 TYPE 2 DIABETES MELLITUS WITH DIABETIC N 09/13/2017 OSEGUERA DO, MAURICIO Ot E78.5 HYPERLIPIDEMIA, UNSPECIFIED 09/13/2017 OSEGUERA DO, MAURICIO Ot F17.21 0 NICOTINE DEPENDENCE, CIGARETTES, UNCOMPL 09/13/2017 OSEGUERA DO, MAURICIO Ot I13.0 HYP HRT CHR KDNY DIS W HRT FAIL AND ST 09/13/2017 OSEGUERA DO, MAURCIIO Ot I21.4 NON-ST ELEVATION (NSTEMI) MYOCARDIAL INF 09/13/2017 OSEGUERA DO, MAURICIO Ot I50.9 HEART FAILURE, UNSPECIFIED 09/13/2017 OSEGUERA DO, MAURICIO Ot J44.1 CHRONIC OBSTRUCTIVE PULMONARY DISEASE W 09/13/2017 OSEGUERA DO, MAURICIO Ot J96.90 RESPIRATORY FAILURE, UNSP, UNSP W HYPOXI 09/13/2017 OSEGUERA DO, MAURICIO Ot N18.9 CHRONIC KIDNEY DISEASE, UNSPECIFIED 09/13/2017 OSEGUERA DO, MAURICIO Ot Z79.84 SENIOR LIVING (CURRENT) USE OF ORAL HYPOGLYC 09/13/2017 OSEGUERA DO, MAURICIO Ot E11.22 TYPE 2 DIABETES MELLITUS W DIABETIC PHARMACY INNOVATION ASSISTANT 09/13/2017 OSEGUERA DO, MAURICIO Ot E11.40 TYPE 2 DIABETES MELLITUS WITH DIABETIC N 09/13/2017 OSEGUERA DO, MAURICIO Ot E78.5 HYPERLIPIDEMIA, UNSPECIFIED 09/13/2017 OSEGUERA DO, MAURICIO Ot F17.21 0 NICOTINE DEPENDENCE, CIGARETTES, UNCOMPL 09/13/2017 OSEGUERA DO, [...] UNSPECIFIED 09/13/2017 MAURICIO OSEGUERA DO Ot Z79.84 SENIOR LIVING (CURRENT) USE OF ORAL HYPOGLYC 09/13/2017 GENI OSEGUERA DOI Ot E11.22 TYPE 2 DIABETES MELLITUS W DIABETIC PHARMACY INNOVATION ASSISTANT 09/13/2017 GENI OSEGUERA DOI Ot E11.40 TYPE 2 DIABETES MELLITUS WITH DIABETIC N 09/13/2017 GENI OSEGUERA DOI Ot E11.65 TYPE 2 DIABETES MELLITUS WITH HYPERGLYCE 09/13/2017 GENI OSEGUERA DOI Ot E78.5 HYPERLIPIDEMIA, UNSPECIFIED 09/13/2017 GENI OSEGUERA DOI Ot F17.21 0 NICOTINE DEPENDENCE, CIGARETTES, UNCOMPL 09/13/2017 GENI OSEGUERA DOI Ot I13.0 HYP HRT CHR KDNY DIS W HRT FAIL AND ST 09/13/2017 GENI OSEGUERA DOI Ot I21.4 NON-ST ELEVATION (NSTEMI) MYOCARDIAL INF 09/13/2017 ANA ROSA LOWE MAURICIO Ot I25.10 ATHSCL HEART DISEASE OF [place] CORONARY 09/13/2017 ANA ROSA LOWE MAURICIO Ot 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 09/13/2017 ANA ROSA LOWE MAURICIO Ot I48.0 PAROXYSMAL ATRIAL FIBRILLATION 09/13/2017 ANA ROSA LOWE MAURICIO Ot I50.31 ACUTE DIASTOLIC (CONGESTIVE) HEART FAILU 09/13/2017 GENI OSEGUERA DOI Ot I50.9 HEART FAILURE, UNSPECIFIED 09/13/2017 GENI OSEGUERA DOI Ot J02.9 ACUTE PHARYNGITIS, UNSPECIFIED 09/13/2017 GENI OSEGUERA DOI Ot J11.1 FLU DUE TO UNIDENTIFIED INFLUENZA VIRUS 09/13/2017 GENI OSEGUERA DOI Ot J44.1 CHRONIC OBSTRUCTIVE PULMONARY DISEASE W 09/13/2017 GENI OSEGUERA DOI Ot J96.90 RESPIRATORY FAILURE, UNSP, UNSP W HYPOXI 09/13/2017 GENI OSEGUERA DOI Ot J98.11 ATELECTASIS 09/13/2017 GENI OSEGUERA DOI Ot N17.9 ACUTE KIDNEY FAILURE, UNSPECIFIED 09/13/2017 GENI OSEGUERA DOI Ot N18.9 CHRONIC KIDNEY DISEASE, UNSPECIFIED 09/13/2017 ANA ROSA LOWE MAURICIO Ot T38.0X 5A ADVERSE EFFECT OF GLUCOCORT/SYNTH ANALOG 09/13/2017 ANA ROAS LOWE MAURICIO Ot Z79.84 SENIOR LIVING (CURRENT) USE OF ORAL HYPOGLYC 09/15/2017 EMILIANO DAVID, DEV Pierre Ot 789.09 ABDOMINAL PAIN, OTHER SPECIFIED SITE 09/15/2017 REED HILTON Ot 789.02 ABDOMINAL PAIN, LEFT UPPER QUADRANT 09/15/2017 DEV CUMMINGS MD Ot 553.21 INCISIONAL HERNIA 09/15/2017 DEV CUMMINGS MD Ot V72.63 PRE-PROCEDURAL LABORATORY EXAMINATION 09/15/2017 DEV CUMMINGS MD Ot V72.81 [id number] CARDIOVASCULAR 09/15/2017 DEV CUMMINGS MD Ot V74.8 SCREEN-BACTERIAL DIS NEC 09/15/2017 DEV CUMMINGS MD Ot 789.09 ABDOMINAL PAIN, OTHER SPECIFIED SITE 09/15/2017 REED HILTON Ot 789.02 ABDOMINAL PAIN, LEFT UPPER QUADRANT 09/15/2017 DEV CUMMINGS MD Ot 553.21 INCISIONAL HERNIA 09/15/2017 DEV CUMMINGS MD Ot V72.63 PRE-PROCEDURAL LABORATORY EXAMINATION 09/15/2017 DEV CUMMINGS MD Ot V72.81 [id number] CARDIOVASCULAR 09/15/2017 DEV CUMMINGS MD Ot V74.8 SCREEN-BACTERIAL DIS NEC 09/17/2017 COCO LAZO MD Ot E11. 9 TYPE 2 DIABETES MELLITUS WITHOUT COMPLIC 09/17/2017 COCO LAZO MD Ot F17.210 NICOTINE DEPENDENCE, CIGARETTES, UNCOMPL 09/17/2017 COCO LAZO MD Ot F32. 9 MAJOR DEPRESSIVE DISORDER, SINGLE EPISOD 09/17/2017 COCO LAZO MD, Ot F41. 9 ANXIETY DISORDER, UNSPECIFIED 09/17/2017 COCO LAZO MD, Ot G57. 93 UNSPECIFIED MONONEUROPATHY OF BILATERAL 09/17/2017 COCO LAZO MD, Ot I11. 0 HYPERTENSIVE HEART DISEASE WITH HEART FA 09/17/2017 VIOLET MD, COCO M Ot I16. 1 HYPERTENSIVE EMERGENCY 09/17/2017 COCO LAZO MD Ot I21. 4 NON-ST ELEVATION (NSTEMI) MYOCARDIAL INF 09/17/2017 COCO LAZO MD Ot I25. 10 ATHSCL HEART DISEASE OF [place] CORONARY 09/17/2017 COCO LAZO MD Ot I48. 0 PAROXYSMAL ATRIAL FIBRILLATION 09/17/2017 COCO LAZO MD Ot I50. 31 ACUTE DIASTOLIC (CONGESTIVE) HEART FAILU 09/17/2017 COCO LAZO MD Ot N17. 9 ACUTE KIDNEY FAILURE, UNSPECIFIED 09/17/2017 COCO LAZO MD Ot Z95. 5 PRESENCE OF CORONARY ANGIOPLASTY IMPLANT 09/17/2017 COCO LAZO MD Ot E11. 9 TYPE 2 DIABETES MELLITUS WITHOUT COMPLIC 09/17/2017 COCO LAZO MD Ot F17.210 NICOTINE DEPENDENCE, CIGARETTES, UNCOMPL 09/17/2017 COCO LAZO MD Ot F32. 9 MAJOR DEPRESSIVE DISORDER, SINGLE EPISOD 09/17/2017 COCO LAZO MD Ot F41. 9 ANXIETY DISORDER, UNSPECIFIED 09/17/2017 COCO LAZO MD Ot G57. 93 UNSPECIFIED MONONEUROPATHY OF BILATERAL 09/17/2017 COCO LAZO MD Ot I11. 0 HYPERTENSIVE HEART DISEASE WITH HEART FA 09/17/2017 COCO LAZO MD Ot I16. 1 HYPERTENSIVE EMERGENCY 09/17/2017 COCO LAZO MD Ot I21. 4 NON-ST ELEVATION (NSTEMI) MYOCARDIAL INF 09/17/2017 COCO LAZO MD Ot I25. 10 ATHSCL HEART DISEASE OF [place] CORONARY 09/17/2017 COCO LAZO MD Ot I48. 0 PAROXYSMAL ATRIAL FIBRILLATION 09/17/2017 COCO LAZO MD Ot I50. 31 ACUTE DIASTOLIC (CONGESTIVE) HEART FAILU 09/17/2017 COCO LAZO MD Ot N17. 9 ACUTE KIDNEY FAILURE, UNSPECIFIED 09/17/2017 COCO LAZO MD Ot Z95. 5 PRESENCE OF CORONARY ANGIOPLASTY IMPLANT 09/17/2017 COCO LAZO MD Ot E11. 9 TYPE 2 DIABETES MELLITUS WITHOUT COMPLIC 09/17/2017 COCO LAZO MD Ot F17.210 NICOTINE DEPENDENCE, CIGARETTES, UNCOMPL 09/17/2017 COCO LAZO MD Ot F32. 9 MAJOR DEPRESSIVE DISORDER, SINGLE EPISOD 09/17/2017 COCO LAZO MD Ot F41. 9 ANXIETY DISORDER, UNSPECIFIED 09/17/2017 COCO LAZO MD Ot G57. 93 UNSPECIFIED MONONEUROPATHY OF BILATERAL 09/17/2017 COCO LAZO MD Ot I11. 0 HYPERTENSIVE HEART DISEASE WITH HEART FA 09/17/2017 COCO LAZO MD Ot I16. 1 HYPERTENSIVE EMERGENCY 09/17/2017 COCO LAZO MD Ot I21. 4 NON-ST ELEVATION (NSTEMI) MYOCARDIAL INF 09/17/2017 COCO LAZO MD Ot I25. 10 ATHSCL HEART DISEASE OF [place] CORONARY 09/17/2017 COCO LAZO MD Ot I48. 0 PAROXYSMAL ATRIAL FIBRILLATION 09/17/2017 COCO LAZO MD Ot I50. 31 ACUTE DIASTOLIC (CONGESTIVE) HEART FAILU 09/17/2017 COCO LAZO MD Ot N17. 9 ACUTE KIDNEY FAILURE, UNSPECIFIED 09/17/2017 COCO LAZO MD Ot Z95. 5 PRESENCE OF CORONARY ANGIOPLASTY IMPLANT 09/17/2017 COCO LAZO MD Ot E11. 9 TYPE 2 DIABETES MELLITUS WITHOUT COMPLIC 09/17/2017 COCO LAZO MD Ot F17.210 NICOTINE DEPENDENCE, CIGARETTES, UNCOMPL 09/17/2017 COCO LAZO MD, Ot F32. 9 MAJOR DEPRESSIVE DISORDER, SINGLE EPISOD 09/17/2017 COCO LAZO MD, Ot F41. 9 ANXIETY DISORDER, UNSPECIFIED 09/17/2017 COCO LAZO MD Ot G57. 93 UNSPECIFIED MONONEUROPATHY OF BILATERAL 09/17/2017 COCO LAZO MD Ot I11. 0 HYPERTENSIVE HEART DISEASE WITH HEART FA 09/17/2017 COCO LAZO MD Ot I13. 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 1 HYPERTENSIVE EMERGENCY 09/17/2017 COCO LAZO MD Ot I21. 4 NON-ST ELEVATION (NSTEMI) MYOCARDIAL INF 09/17/2017 COCO LAZO MD Ot I25. 10 ATHSCL HEART DISEASE OF [place] CORONARY 09/17/2017 CCOO LAZO MD, Ot I25. 82 CHRONIC TOTAL OCCLUSION OF CORONARY RODY 09/17/2017 COCO LAZO MD Ot I48. 0 PAROXYSMAL ATRIAL FIBRILLATION 09/17/2017 COCO LAZO MD Ot I50. 31 ACUTE DIASTOLIC (CONGESTIVE) HEART FAILU 09/17/2017 COCO LAZO MD, Ot J44. 9 CHRONIC OBSTRUCTIVE PULMONARY DISEASE, U 09/17/2017 COCO LAZO MD, Ot N17. 9 ACUTE KIDNEY FAILURE, UNSPECIFIED 09/17/2017 COCO LAZO MD, Ot N18. 9 CHRONIC KIDNEY DISEASE, UNSPECIFIED 09/17/2017 COCO LAZO MD Ot Z23 ENCOUNTER FOR IMMUNIZATION 09/17/2017 COCO LAZO MD Ot Z95. 5 PRESENCE OF CORONARY ANGIOPLASTY IMPLANT 09/21/2017 DEV CUMMINGS MD Ot 789.09 ABDOMINAL PAIN, OTHER SPECIFIED SITE 09/21/2017 REED HILTON Ot 789.02 ABDOMINAL PAIN, LEFT UPPER QUADRANT 09/21/2017 DEV CUMMINGS MD Ot 553.21 INCISIONAL HERNIA 09/21/2017 DEV CUMMINGS MD Ot V72.63 PRE-PROCEDURAL LABORATORY EXAMINATION 09/21/2017 DEV CUMMINGS MD Ot V72.81 [id number] CARDIOVASCULAR 09/21/2017 DEV CUMMINGS MD Ot V74.8 SCREEN-BACTERIAL DIS NEC 10/11/2017 DEV CUMMINGS MD Ot 789.09 ABDOMINAL PAIN, OTHER SPECIFIED SITE 10/11/2017 REED HILTON Ot 789.02 ABDOMINAL PAIN, LEFT UPPER QUADRANT 10/11/2017 DEV CUMMINGS MD Ot 553.21 INCISIONAL HERNIA 10/11/2017 DEV CUMMINGS MD Ot V72.63 PRE-PROCEDURAL LABORATORY EXAMINATION 10/11/2017 DEV CUMMINGS MD Ot V72.81 [id number] CARDIOVASCULAR 10/11/2017 DEV CUMMINGS MD Ot V74.8 SCREEN-BACTERIAL DIS NEC 10/11/2017 OMAR, FABRICE METAL WASHING MACHINE OPERATOR Ot E11.40 TYPE 2 DIABETES MELLITUS WITH DIABETIC N 10/11/2017 OMAR, FABRICE METAL WASHING MACHINE OPERATOR Ot E78.00 PURE HYPERCHOLESTEROLEMIA, UNSPECIFIED 10/11/2017 OMAR, FABRICE METAL WASHING MACHINE OPERATOR Ot F12.90 CANNABIS USE, UNSPECIFIED, UNCOMPLICATED 10/11/2017 OMAR, FABRICE METAL WASHING MACHINE OPERATOR Ot F17.210 NICOTINE DEPENDENCE, CIGARETTES, UNCOMPL 10/11/2017 OMAR, FABRICE METAL WASHING MACHINE OPERATOR Ot F32.9 MAJOR DEPRESSIVE DISORDER, SINGLE EPISOD 10/11/2017 OMAR, FABRICE METAL WASHING MACHINE OPERATOR Ot F41.9 ANXIETY DISORDER, UNSPECIFIED 10/11/2017 OMAR, FABRICE METAL WASHING MACHINE OPERATOR Ot I11.0 HYPERTENSIVE HEART DISEASE WITH HEART FA 10/11/2017 OMAR, FABRICE METAL WASHING MACHINE OPERATOR Ot I25.2 OLD MYOCARDIAL INFARCTION 10/11/2017 OMAR, FABRICE METAL WASHING MACHINE OPERATOR Ot I50.9 HEART FAILURE, UNSPECIFIED 10/11/2017 OMAR, FABRICE METAL WASHING MACHINE OPERATOR Ot N39.0 URINARY TRACT INFECTION, SITE NOT SPECIF 10/11/2017 OMAR, FABRICE METAL WASHING MACHINE OPERATOR Ot R53.1 WEAKNESS 10/11/2017 OMAR, FABRICE METAL WASHING MACHINE OPERATOR Ot Z79.52 SENIOR LIVING (CURRENT) USE OF SYSTEMIC STER 10/11/2017 OMAR, FABRICE METAL WASHING MACHINE OPERATOR Ot Z79.82 INDEX EDITOR (CURRENT) USE OF ASPIRIN 10/11/2017 OMAR, FABRICE METAL WASHING MACHINE OPERATOR Ot Z79.84 SENIOR LIVING (CURRENT) USE OF ORAL HYPOGLYC 10/11/2017 EMILIANO DAVID, DEV Pierre Ot 789.09 ABDOMINAL PAIN, OTHER SPECIFIED SITE 10/11/2017 REED HILTON Ot 789.02 ABDOMINAL PAIN, LEFT UPPER QUADRANT 10/11/2017 EMILIANO DAIVD, DEV Pierre Ot 553.21 INCISIONAL HERNIA 10/11/2017 DEV CUMMINGS MD Ot V72.63 PRE-PROCEDURAL LABORATORY EXAMINATION 10/11/2017 DEV CUMMINGS MD Ot V72.81 [id number] CARDIOVASCULAR 10/11/2017 EMILIANO DAVID, DEV Pierre Ot V74.8 SCREEN-BACTERIAL DIS NEC 10/13/2017 OMAR, FABRICE METAL WASHING MACHINE OPERATOR Ot E11.40 TYPE 2 DIABETES MELLITUS WITH DIABETIC N 10/13/2017 OMAR, FABRICE METAL WASHING MACHINE OPERATOR Ot E78.00 PURE HYPERCHOLESTEROLEMIA, UNSPECIFIED 10/13/2017 OMAR, FABRICE METAL WASHING MACHINE OPERATOR Ot F12.90 CANNABIS USE, UNSPECIFIED, UNCOMPLICATED 10/13/2017 OMAR, FABRICE METAL WASHING MACHINE OPERATOR Ot F17.210 NICOTINE DEPENDENCE, CIGARETTES, UNCOMPL 10/13/2017 OMAR, FABRICE METAL WASHING MACHINE OPERATOR Ot F32.9 MAJOR DEPRESSIVE DISORDER, SINGLE EPISOD 10/13/2017 OMAR, FABRICE METAL WASHING MACHINE OPERATOR Ot F41.9 ANXIETY DISORDER, UNSPECIFIED 10/13/2017 OMAR, FABRICE METAL WASHING MACHINE OPERATOR Ot I11.0 HYPERTENSIVE HEART DISEASE WITH HEART FA 10/13/2017 OMAR, FABRICE METAL WASHING MACHINE OPERATOR Ot I25.2 OLD MYOCARDIAL INFARCTION 10/13/2017 OMAR, FABRICE METAL WASHING MACHINE OPERATOR Ot I50.9 HEART FAILURE, UNSPECIFIED 10/13/2017 OMAR, FABRICE METAL WASHING MACHINE OPERATOR Ot N39.0 URINARY TRACT INFECTION, SITE NOT SPECIF 10/13/2017 OMAR, FABRICE METAL WASHING MACHINE OPERATOR Ot R53.1 WEAKNESS 10/13/2017 OMAR, FABRICE METAL WASHING MACHINE OPERATOR Ot Z79.52 INDEX EDITOR (CURRENT) USE OF SYSTEMIC STER 10/13/2017 OMAR, FABRICE METAL WASHING MACHINE OPERATOR Ot Z79.82 SENIOR LIVING (CURRENT) USE OF ASPIRIN 10/13/2017 OMAR, FABRICE METAL WASHING MACHINE OPERATOR Ot Z79.84 SENIOR LIVING (CURRENT) USE OF ORAL HYPOGLYC 10/17/2017 OMAR, FABRICE METAL WASHING MACHINE OPERATOR Ot E11.40 TYPE 2 DIABETES MELLITUS WITH DIABETIC N 10/17/2017 OMAR, FABRICE METAL WASHING MACHINE OPERATOR Ot E78.00 PURE HYPERCHOLESTEROLEMIA, UNSPECIFIED 10/17/2017 OMAR, FABRICE METAL WASHING MACHINE OPERATOR Ot F12.90 CANNABIS USE, UNSPECIFIED, UNCOMPLICATED 10/17/2017 OMAR, FABRICE METAL WASHING MACHINE OPERATOR Ot F17.210 NICOTINE DEPENDENCE, CIGARETTES, UNCOMPL 10/17/2017 OMAR, FABRICE METAL WASHING MACHINE OPERATOR Ot F32.9 MAJOR DEPRESSIVE DISORDER, SINGLE EPISOD 10/17/2017 OMAR, FABRICE METAL WASHING MACHINE OPERATOR Ot F41.9 ANXIETY DISORDER, UNSPECIFIED 10/17/2017 OMAR, FABRICE METAL WASHING MACHINE OPERATOR Ot I11.0 HYPERTENSIVE HEART DISEASE WITH HEART FA 10/17/2017 OMAR, FABRICE METAL WASHING MACHINE OPERATOR Ot I25.2 OLD MYOCARDIAL INFARCTION 10/17/2017 OMAR, FABRICE METAL WASHING MACHINE OPERATOR Ot I50.9 HEART FAILURE, UNSPECIFIED 10/17/2017 OMAR, FABRICE METAL WASHING MACHINE OPERATOR Ot N39.0 URINARY TRACT INFECTION, SITE NOT SPECIF 10/17/2017 OMAR, FABRICE METAL WASHING MACHINE OPERATOR Ot R53.1 WEAKNESS 10/17/2017 OMAR, FABRICE METAL WASHING MACHINE OPERATOR Ot Z79.52 INDEX EDITOR (CURRENT) USE OF SYSTEMIC STER 10/17/2017 FABRICE NELSON Ot Z79.82 INDEX EDITOR (CURRENT) USE OF ASPIRIN 10/17/2017 FABRICE NELSON Ot Z79.84 SENIOR LIVING (CURRENT) USE OF ORAL HYPOGLYC 10/29/2017 EMILIANO DAVID, DEV Pierre Ot 789.09 ABDOMINAL PAIN, OTHER SPECIFIED SITE 10/29/2017 ZUHAIR ROTHMAN, REED M Ot 789.02 ABDOMINAL PAIN, LEFT UPPER QUADRANT 10/29/2017 EMILIANO DAVID, DEV Pierre Ot 553.21 INCISIONAL HERNIA 10/29/2017 EMILIANO DAVID, DEV Pierre Ot V72.63 PRE-PROCEDURAL LABORATORY EXAMINATION 10/29/2017 EMILIANO DAVID, DEV Pierre Ot V72.81 [id number] CARDIOVASCULAR 10/29/2017 EMILIANO DAVID, DEV Pierre Ot V74.8 SCREEN-BACTERIAL DIS NEC 10/29/2017 MARILEE OSWALD APRN Ot E11.40 TYPE 2 DIABETES MELLITUS WITH DIABETIC N 10/29/2017 MARILEE OSWALD APRN Ot E78.00 PURE HYPERCHOLESTEROLEMIA, UNSPECIFIED 10/29/2017 MARILEE OSWALD APRN Ot F12.10 CANNABIS ABUSE, UNCOMPLICATED 10/29/2017 MARILEE OSWALD APRN Ot F17.210 NICOTINE DEPENDENCE, CIGARETTES, UNCOMPL 10/29/2017 MARILEE OSWALD APRN Ot F32 .9 MAJOR DEPRESSIVE DISORDER, SINGLE EPISOD 10/29/2017 MARILEE OSWALD APRN Ot F41 .9 ANXIETY DISORDER, UNSPECIFIED 10/29/2017 MARILEE OSWALD APRN Ot I10 ESSENTIAL (PRIMARY) HYPERTENSION 10/29/2017 MARILEE OSWALD APRN Ot I25 .2 OLD MYOCARDIAL INFARCTION 10/29/2017 MARILEE OSWALD APRN Ot K86 .1 OTHER CHRONIC PANCREATITIS 10/29/2017 MARILEE OSWALD APRN Ot R10.84 GENERALIZED ABDOMINAL PAIN 10/29/2017 MARILEE OSWALD APRN Ot Z79.01 INDEX EDITOR (CURRENT) USE OF ANTICOAGULANT 10/29/2017 MARILEE OSWALD APRN Ot Z79.52 SENIOR LIVING (CURRENT) USE OF SYSTEMIC STER 10/29/2017 MARILEE OSWALD APRN Ot Z79.82 SENIOR LIVING (CURRENT) USE OF ASPIRIN 10/29/2017 MARILEE OSWALD APRN Ot Z79.84 INDEX EDITOR (CURRENT) USE OF ORAL HYPOGLYC 10/29/2017 MARILEE OSAWLD APRN Ot Z87.19 PERSONAL HISTORY OF OTHER DISEASES OF 10/29/2017 EMILIANO DAVID, DEV Pierre Ot 789.09 ABDOMINAL PAIN, OTHER SPECIFIED SITE 10/29/2017 ZUHAIR ROTHMAN, REED Ignacio Ot 789.02 ABDOMINAL PAIN, LEFT UPPER QUADRANT 10/29/2017 EMILIANO DAVID, DEV Pierre Ot 553.21 INCISIONAL HERNIA 10/29/2017 EMILIANO DAVID, DEV Pierre Ot V72.63 PRE-PROCEDURAL LABORATORY EXAMINATION 10/29/2017 EMILIANO DAVID, DVE Pierre Ot V72.81 [id number] CARDIOVASCULAR 10/29/2017 EMILIANO DAVID, DEV Pierre Ot V74.8 SCREEN-BACTERIAL DIS NEC 11/02/2017 MARILEE OSWALD APRN Ot E11.40 TYPE 2 DIABETES MELLITUS WITH DIABETIC N 11/02/2017 MARILEE OSWALD APRN Ot E78.00 PURE HYPERCHOLESTEROLEMIA, UNSPECIFIED 11/02/2017 MARILEE OSWALD APRN Ot F12.10 CANNABIS ABUSE, UNCOMPLICATED 11/02/2017 MARILEE OSWALD APRN Ot F17.210 NICOTINE DEPENDENCE, CIGARETTES, UNCOMPL 11/02/2017 MARILEE OSWALD APRN Ot F32 .9 MAJOR DEPRESSIVE DISORDER, SINGLE EPISOD 11/02/2017 MARILEE OSWALD APRN Ot F41 .9 ANXIETY DISORDER, UNSPECIFIED 11/02/2017 MARILEE OSWALD APRN Ot I10 ESSENTIAL (PRIMARY) HYPERTENSION 11/02/2017 MARILEE OSWALD APRN Ot I25 .2 OLD MYOCARDIAL INFARCTION 11/02/2017 MARILEE OSWALD APRN Ot K86 .1 OTHER CHRONIC PANCREATITIS 11/02/2017 MARILEE OSWALD APRN Ot R10.84 GENERALIZED ABDOMINAL PAIN 11/02/2017 MARILEE OSWALD APRN Ot Z79.01 INDEX EDITOR (CURRENT) USE OF ANTICOAGULANT 11/02/2017 MARILEE OSWALD APRN Ot Z79.52 SENIOR LIVING (CURRENT) USE OF SYSTEMIC STER 11/02/2017 MARILEE OSWALD APRN Ot Z79.82 INDEX EDITOR (CURRENT) USE OF ASPIRIN 11/02/2017 MARILEE OSWALD APRN Ot Z79.84 INDEX EDITOR (CURRENT) USE OF ORAL HYPOGLYC 11/02/2017 MARILEE OSWALD APRN Ot Z87.19 PERSONAL HISTORY OF OTHER DISEASES OF 11/13/2017 MARIJA BOYER MD Ot E11.40 TYPE 2 DIABETES MELLITUS WITH DIABETIC N 11/13/2017 MARIJA BOYER MD, Ot E11.65 TYPE 2 DIABETES MELLITUS WITH HYPERGLYCE 11/13/2017 MARIJA BOYER MD, Ot E78.00 PURE HYPERCHOLESTEROLEMIA, UNSPECIFIED 11/13/2017 MARIJA BOYER MD Ot F12.90 CANNABIS USE, UNSPECIFIED, UNCOMPLICATED 11/13/2017 MARIJA BOYER MD Ot 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 11/13/2017 MARIJA BOYER MD Ot I10 ESSENTIAL (PRIMARY) HYPERTENSION 11/13/2017 MARIJA BOYER MD, Ot I25.10 ATHSCL HEART DISEASE OF [place] CORONARY 11/13/2017 MARIJA BOYER MD, Ot I25.2 OLD MYOCARDIAL INFARCTION 11/13/2017 MARIJA BOYER MD Ot R29.810 FACIAL WEAKNESS 11/13/2017 MARIJA BOYER MD Ot Z77.22 CNTCT W AND EXPSR TO ENVIRON TOBACCO SMO 11/13/2017 MARIJA BOYER MD, Ot Z79.52 INDEX EDITOR (CURRENT) USE OF SYSTEMIC STER 11/13/2017 MARIJA BOYER MD, Ot Z79.82 INDEX EDITOR (CURRENT) USE OF ASPIRIN 11/13/2017 MARIJA BOYER MD Ot Z79.84 INDEX EDITOR (CURRENT) USE OF ORAL HYPOGLYC 11/13/2017 MARIJA BOYER MD Ot Z87.19 PERSONAL HISTORY OF OTHER DISEASES OF 11/13/2017 MARIJA BOYER MD Ot Z95.5 PRESENCE OF CORONARY ANGIOPLASTY IMPLANT 11/13/2017 MARIJA BOYER MD Ot Z98.890 OTHER SPECIFIED POSTPROCEDURAL STATES 11/13/2017 DEV CUMMINGS MD Ot 789.09 ABDOMINAL PAIN, OTHER SPECIFIED SITE 11/13/2017 REED HILTON Ot 789.02 ABDOMINAL PAIN, LEFT UPPER QUADRANT 11/13/2017 DEV CUMMINGS MD Ot 553.21 INCISIONAL HERNIA 11/13/2017 DEV CUMMINGS MD Ot V72.63 PRE-PROCEDURAL LABORATORY EXAMINATION 11/13/2017 DEV CUMMINGS MD Ot V72.81 [id number] CARDIOVASCULAR 11/13/2017 EMILIANO DAVID, DEV Pierre Ot V74.8 SCREEN-BACTERIAL DIS NEC 11/13/2017 EMILIANO DAVID, DEV Pierre Ot 789.09 ABDOMINAL PAIN, OTHER SPECIFIED SITE 11/13/2017 ZUHAIR ROTHMAN REED Ignacio Ot 789.02 ABDOMINAL PAIN, LEFT UPPER QUADRANT 11/13/2017 DEV CUMMINGS MD Ot 553.21 INCISIONAL HERNIA 11/13/2017 DEV CUMMINGS MD Ot V72.63 PRE-PROCEDURAL LABORATORY EXAMINATION 11/13/2017 DEV CUMMINGS MD Ot V72.81 [id number] CARDIOVASCULAR 11/13/2017 EMILIANO DAVID, DEV Pierre Ot V74.8 SCREEN-BACTERIAL DIS NEC 11/16/2017 MARIJA BOYER MD Ot E11.40 TYPE 2 DIABETES MELLITUS WITH DIABETIC N 11/16/2017 MARIJA BOYER MD Ot E11.65 TYPE 2 DIABETES MELLITUS WITH HYPERGLYCE 11/16/2017 MARIJA BOYER MD Ot E78.00 PURE HYPERCHOLESTEROLEMIA, UNSPECIFIED 11/16/2017 MARIJA BOYER MD Ot F12.90 CANNABIS USE, UNSPECIFIED, UNCOMPLICATED 11/16/2017 MARIJA BOYER MD Ot 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 11/16/2017 MARIJA BOYER MD Ot I10 ESSENTIAL (PRIMARY) HYPERTENSION 11/16/2017 MARIJA BOYER MD Ot I25.10 ATHSCL HEART DISEASE OF [place] CORONARY 11/16/2017 MARIJA BOYER MD Ot I25.2 OLD MYOCARDIAL INFARCTION 11/16/2017 MARIJA BOYER MD Ot R29.810 FACIAL WEAKNESS 11/16/2017 MARIJA BOYER MD Ot Z77.22 CNTCT W AND EXPSR TO ENVIRON TOBACCO SMO 11/16/2017 MARIJA BOYER MD Ot Z79.52 SENIOR LIVING (CURRENT) USE OF SYSTEMIC STER 11/16/2017 MARIJA BOYER MD Ot Z79.82 INDEX EDITOR (CURRENT) USE OF ASPIRIN 11/16/2017 MARIJA BOYER MD Ot Z79.84 SENIOR LIVING (CURRENT) USE OF ORAL HYPOGLYC 11/16/2017 MARIJA BOYER MD Ot Z87.19 PERSONAL HISTORY OF OTHER DISEASES OF TH 11/16/2017 MERLIN DAVID, MARIJA Medrano Ot Z95.5 PRESENCE OF CORONARY ANGIOPLASTY IMPLANT 11/16/2017 MERLIN DAVID, MARIJA Medrano Ot Z98.890 OTHER SPECIFIED POSTPROCEDURAL STATES 05/05/2018 EMILIANO DAVID, DEV Pierre Ot 789.09 ABDOMINAL PAIN, OTHER SPECIFIED SITE 05/05/2018 ZUHAIR ROTHMAN, REED M Ot 789.02 ABDOMINAL PAIN, LEFT UPPER QUADRANT 05/05/2018 EMILIANO DAVID, DEV Pierre Ot 553.21 INCISIONAL HERNIA 05/05/2018 EMILIANO DAVID, DEV Pierre Ot V72.63 PRE-PROCEDURAL LABORATORY EXAMINATION 05/05/2018 EMILIANO DAVID, DEV Pierre Ot V72.81 [id number]-GOW-[id number] CARDIOVASCULAR 05/05/2018 EMILIANO DAVID, DEV Pierre Ot V74.8 SCREEN-BACTERIAL DIS NEC 06/04/2018 FABRICE NELSON MET[employer] WASHING MACHINE OPERATOR Ot E11.40 TYPE 2 DIABETES MELLITUS WITH DIABETIC N 06/04/2018 OMAR FABRICE METAL WASHING MACHINE OPERATOR Ot E78.00 PURE HYPERCHOLESTEROLEMIA, UNSPECIFIED 06/04/2018 OMAR FABRICE METAL WASHING MACHINE OPERATOR Ot F12.90 CANNABIS USE, UNSPECIFIED, UNCOMPLICATED 06/04/2018 OMAR FABRICE METAL WASHING MACHINE OPERATOR Ot F17.210 NICOTINE DEPENDENCE, CIGARETTES, UNCOMPL 06/04/2018 OMAR FABRICE METAL WASHING MACHINE OPERATOR Ot F32.9 MAJOR DEPRESSIVE DISORDER, SINGLE EPISOD 06/04/2018 OMAR FABRICE METAL WASHING MACHINE OPERATOR Ot F41.9 ANXIETY DISORDER, UNSPECIFIED 06/04/2018 OMAR FABRICE METAL WASHING MACHINE OPERATOR Ot I11.0 HYPERTENSIVE HEART DISEASE WITH HEART FA 06/04/2018 OMAR FABRICE METAL WASHING MACHINE OPERATOR Ot I25.2 OLD MYOCARDIAL INFARCTION 06/04/2018 OMAR FABRICE METAL WASHING MACHINE OPERATOR Ot I50.9 HEART FAILURE, UNSPECIFIED 06/04/2018 OMAR FABRICE METAL WASHING MACHINE OPERATOR Ot N39.0 URINARY TRACT INFECTION, SITE NOT SPECIF 06/04/2018 OMAR FABRICE METAL WASHING MACHINE OPERATOR Ot R53.1 WEAKNESS 06/04/2018 OMAR FABRICE METAL WASHING MACHINE OPERATOR Ot Z79.52 INDEX EDITOR (CURRENT) USE OF SYSTEMIC STER 06/04/2018 OMAR FABRICE METAL WASHING MACHINE OPERATOR Ot Z79.82 SENIOR LIVING (CURRENT) USE OF ASPIRIN 06/04/2018 FABRICE NELSON METAL WASHING MACHINE OPERATOR Ot Z79.84 SENIOR LIVING (CURRENT) USE OF ORAL HYPOGLYC Procedures Code Description [place] [address] ROUT INE VENIPUNCTURE 03/21/2013 67592 A1C (IN-HOUSE) 03/21/2013 22833 CBC 03/21/2013 09362 CMP 03/21/20135009047 GF R CALC (RESULT ONLY) 03/21/2013 22173 VIT B 12 03/21/2013 37886 FOLATE 03/21/2013 44708 TSH 03/21/2013 GENERAL S CUM[place] DEV 03/21/[address] C HEST W/DYE 04/25/[address] A BDOMEN W/ CONTRAST 04/25/2013 62998 US A BDOMEN ULTRASOUND, LIMITED (SPECIFY ORGAN) 05/13/2013 55016 A1C (IN-HOUSE) 08/26/20138 FOOT EXAM PERFORMED 08/26/2013 [id number] DI LATION OF 1 COR ART WITH DRUG-ELUT INT 09/12/2017 [id number] ME ASURE OF CARDIAC SAMPL PRESSURE, L H 09/12/2017 [id number] FL UOROSCOPY OF MULT COR ART USING L OSM 09/12/2017 [id number] ME ASURE OF CARDIAC SAMPL PRESSURE, L H 09/17/2017 [id number] RE SPIRATORY VENTILATION, LESS THAN 24 CO 09/17/2017 [id number] FL UOROSCOPY OF MULT COR ART USING L OSM 09/17/2017 [id number] FL UOROSCOPY OF ABDOMINAL AORTA USING LOW 09/17/2017 [id number] FL UOROSCOPY OF BILATERAL RENAL ARTERIES 09/17/2017 Results Test Result Range Complete blood count (CBC) with automate d white blood cell (WBC) differential - 09/09/17 18:49 Blood leukocytes automated count (number/volume) 14.8 10*3/uL 4.3-11.0 Blood erythrocytes automated count (number/volume) 4.90 10*6/uL 4.35-5.85 Venous blood hemoglobin measurement (mass/volume) 14.6 g/dL 13.3-17.7 Blood hematocrit (volume fraction) 43 % 40-54 Automated erythrocyte mean corpuscular volume 88 [ foz_us] 80-99 Automated erythrocyte mean corpuscular h emoglobin (mass per erythrocyte) 30 pg 25-34 Automated erythrocyte mean corpuscular h emoglobin concentration measurement (mass/volume) 34 g/dL 32-36 Automated erythrocyte distribution width ratio 14. 6 % 10.0- 14.5 Automated blood platelet count (count/volume) 266 10*3/uL [...] 10*3 1.0-4.0 Blood monocytes automated count (number/volume) 1. 4 10*3 0.0-1.0 Automated eosinophil count 0.2 10*3/uL 0 .0-0.3 Automated blood basophil count (count/volume) 0.1 10*3/uL 0.0-0.1 PT panel in platelet poor plasma by coag ulation assay - 09/09/17 18:49 Prothrombin time (PT) in platelet poor plasma by coagu lation assay 12.4 s 12.2-14.7 INR in platelet poor plasma or blood by coagulation as say 0.9 0.8-1.4 Activated partial thromboplastin time (a PTT) in platelet poor plasma bycoagulation assay - 09/09/17 18:49 Activated partial thromboplastin time (a PTT) in platelet poor plasma bycoagulation assay 24 s 24-35 Blood manual differential performed dete ction - 09/09/17 18:49 Blood monocytes/100 leukocytes 6 % NRG Manual blood segmented neutrophils/100 leukocytes 52 % NRG Blood band neutrophils/100 leukocytes 2 % NRG Manual blood lymphocytes/100 leukocytes 40 % NRG Manual eosinophils/100 leukocytes in nose 0 % NRG Manual blood basophils/100 leukocytes 0 % NRG Blood erythrocyte morphology finding identification NORMAL [employer] [facility] Comprehensive metabolic panel - 09/09/17 18:49 Serum or plasma sodium measurement (moles/volume) 138 mmol/L 135-145 Serum or plasma potassium measurement (moles/volume) 3.8 mmol/L 3.6-5.0 Serum or plasma chloride measurement (moles/volume) 101 mmol/L 98-107 Carbon dioxide 21 mmol/L 21-32 Serum or plasma anion gap determination (moles/volume) 16 mmol/L 5-14 Serum or plasma urea nitrogen measurement (mass/volume ) 20 mg/dL 7-18 Serum or plasma creatinine measurement (mass/volume) 1.33 mg/dL 0.60-1.30 Serum or plasma urea nitrogen/creatinine mass ratio 15 NRG Serum or plasma creatinine measurement w ith calculation of estimated glomerular filtration rate 54 NRG Serum or plasma glucose measurement (mass/volume) 325 mg/dL 70-105 Serum or plasma calcium measurement (mass/volume) 9.5 mg/dL 8.5-10.1 Serum or plasma total bilirubin measurement (mass/volu me) 0.5 mg/dL 0.1-1.0 Serum or plasma alkaline phosphatase mi surement (enzymatic activity/volume) 89 U/L 40-136 Serum or plasma aspartate aminotransfera se measurement (enzymatic activity/volume) 43 U/L 5-34 Serum or plasma alanine aminotransferase measurement (enzymatic activity/volume) 31 U/L 0-55 Serum or plasma protein measurement (mass/volume) 8.9 g/dL 6.4-8.2 Serum or plasma albumin measurement (mass/volume) 4.0 g/dL 3.2-4.5 Magnesium - 09/09/17 18:49 Magnesium 2.2 mg/dL 1.8-2.4 Serum or plasma creatine kinase measurem ent (enzymatic activity/volume) - 09/09/17 18:49 Serum or plasma creatine kinase measurem ent (enzymatic activity/volume) 241 U/L 30-200 Serum or plasma creatine kinase MB measu rement (enzymatic activity/volume) - 09/09/17 18:49 Serum or plasma creatine kinase MB measu rement (enzymatic activity/volume) 9.2 ng/mL <6.6 Serum or plasma troponin i.cardiac measu rement (mass/volume) - 09/09/17 18:49 Serum or plasma troponin i.cardiac measurement (mass/v olume) 1.10 ng/mL <0.30 Serum or plasma lithium measurement (mol es/volume) - 09/09/17 18:49 BNP level 838.8 pg/mL <100.0 Serum or plasma amylase measurement (enz ymatic activity/volume) - 09/09/17 18:49 Serum or plasma amylase measurement (enzymatic activit y/volume) 20 U/L 25-125 Lipase - 09/09/17 18:49 Lipase 15 U/L 8-78 Serum or plasma ethanol measurement (mas s/volume) - 09/09/17 18:49 Serum or plasma ethanol measurement (mass/volume) 15 mg/dL <10 Bacterial blood culture - 09/09/17 18:49 Bacterial blood culture NG NRG Bacterial blood culture - 09/09/17 19:05 QUANTITY OF GROWTH . NRG Bacterial blood culture SEE COMMEN NRG Sputum Gram stain - 09/09/17 19:55 GRAM STAIN SPUTUM AND MIXED BACTERIAL CRISTIAN NRG Bacterial sputum culture - 09/09/17 19:5 5 QUANTITY OF GROWTH . NR FREE TEXT ENTRY 3 PLUS NORMAL CRISTIAN NRG Bacterial sputum culture SEE COMMEN NRG Influenza virus A and B antigen detectio n - 09/09/17 20:18 CALL POSITIVES (F1 HELP) ED NRG FLU RESULT POSITIVE FOR INFLUENZA B ANT IGEN, NEG FOR A ANTIGEN, BY IA NRG Urine drug screening test - 09/09/17 21: 45 Urine phencyclidine detection by screening method NEGATIVE NEGATIVE Urine benzodiazepines detection by screening method NEGATIVE NEGATIVE Urine cocaine detection NEGATIVE NEGATI VE Urine amphetamines detection by screening method N EGATIVE NEGATIVE Urine methamphetamine detection by screening method NEGATIVE NEGATIVE Urine cannabinoids detection by screening method P OSITIVE NEGATIVE Urine opiates detection by screening method NEGATI VE NEGATIVE Urine barbiturates detection NEGATIVE N EGATIVE Screening urine tricyclic antidepressants detection NEGATIVE NEGATIVE Urine methadone detection by screening method NEGA TIVE NEGATIVE Urine oxycodone detection NEGATIVE NEGA TIVE Urine propoxyphene detection NEGATIVE N EGATIVE Methicillin resistant Staphylococcus aur eus (MRSA) screening culture - 09/09/17 22:16 Methicillin resistant Staphylococcus aureus (MRSA) scr eening culture NEG NRG Serum or plasma troponin i.cardiac measu rement (mass/volume) - 09/09/17 23:45 Serum or plasma troponin i.cardiac measurement (mass/v olume) 1.78 ng/mL <0.30 Complete blood count (CBC) with automate d white blood cell (WBC) differential - 09/10/17 05:30 Blood leukocytes automated count (number/volume) 6.8 10*3/uL 4.3-11.0 Blood erythrocytes automated count (number/volume) 4.42 10*6/uL 4.35-5.85 Venous blood hemoglobin measurement (mass/volume) 13.1 g/dL 13.3-17.7 Blood hematocrit (volume fraction) 39 % 40-54 Automated erythrocyte mean corpuscular volume 89 [ foz_us] 80-99 Automated erythrocyte mean corpuscular h emoglobin (mass per erythrocyte) 30 pg 25-34 Automated erythrocyte mean corpuscular h emoglobin concentration measurement (mass/volume) 33 g/dL 32-36 Automated erythrocyte distribution width ratio 14. 1 % 10.0- 14.5 Automated blood platelet count (count/volume) 230 10*3/uL [...] 10*3 1.0-4.0 Blood monocytes automated count (number/volume) 0. 2 10*3 0.0-1.0 Automated eosinophil count 0.0 10*3/uL 0 .0-0.3 Automated blood basophil count (count/volume) 0.0 10*3/uL 0.0-0.1 Whole blood basic metabolic panel - 08/27 05:30 Serum or plasma sodium measurement (moles/volume) 136 mmol/L 135-145 Serum or plasma potassium measurement (moles/volume) 3.6 mmol/L 3.6-5.0 Serum or plasma chloride measurement (moles/volume) 97 mmol/L 98-107 Carbon dioxide 21 mmol/L 21-32 Serum or plasma anion gap determination (moles/volume) 18 mmol/L 5-14 Serum or plasma urea nitrogen measurement (mass/volume ) 25 mg/dL 7-18 Serum or plasma creatinine measurement (mass/volume) 1.63 mg/dL 0.60-1.30 Serum or plasma urea nitrogen/creatinine mass ratio 15 NRG Serum or plasma creatinine measurement w ith calculation of estimated glomerular filtration rate 43 NRG Serum or plasma glucose measurement (mass/volume) 504 mg/dL 70-105 Serum or plasma calcium measurement (mass/volume) 9.3 mg/dL 8.5-10.1 Serum or plasma phosphate measurement (m ass/volume) - 09/10/17 05:30 Serum or plasma phosphate measurement (mass/volume) 5.7 mg/dL 2.3-4.7 Magnesium - 09/10/17 05:30 Magnesium 1.7 mg/dL 1.8-2.4 Lipid 1996 panel - 09/10/17 05:30 Serum or plasma triglyceride measurement (mass/volume) 134 mg/dL <150 Serum or plasma cholesterol measurement (mass/volume) 179 mg/dL < 200 Serum or plasma cholesterol in HDL measurement (mass/v olume) 31 mg/dL 40-60 Cholesterol in LDL [mass/volume] in serum or plasma by direct assay 126 mg/dL 1-129 Serum or plasma cholesterol in VLDL measurement (mass/ volume) 27 mg/dL 5-40 Serum or plasma troponin i.cardiac measu rement (mass/volume) - 09/10/17 05:30 Serum or plasma troponin i.cardiac measurement (mass/v olume) 1.00 ng/mL <0.30 Serum or plasma lithium measurement (mol es/volume) - 09/10/17 05:30 BNP level 868.7 pg/mL <100.0 Fibrin D-dimer FEU measurement in platel et poor plasma (mass/volume) - 09/10/17 05:30 Fibrin D-dimer FEU measurement in platelet poor plasma (mass/volume) 0.74 ug/mL 0.00-0.49 Capillary blood glucose measurement by g lucometer (mass/volume) - 09/10/17 08:47 Capillary blood glucose measurement by glucometer (mas s/volume) 484 mg/dL 70-110 Hemoglobin A1c - 09/10/17 10:30 Blood hemoglobin A1C measurement (mass/volume) 11. 8 % 4.0- 5.6 MEAN BLOOD GLUCOSE 292 % <=126 Capillary blood glucose measurement by g lucometer (mass/volume) - 09/10/17 11:32 Capillary blood glucose measurement by glucometer (mas s/volume) 454 mg/dL 70-110 Complete urinalysis with reflex to cultu re - 09/10/17 14:45 Urine color determination YELLOW NRG Urine clarity determination CLEAR NR G Urine pH measurement by test strip 5 5-9 Specific gravity of urine by test strip 1.010 1.016-1.022 Urine protein assay by test strip, semi-quantitative 2+ NEGATIVE Urine glucose detection by automated test strip 4+ NEGATIVE Erythrocytes detection in urine sediment by light micr oscopy NEGATIVE NEGATIVE Urine ketones detection by automated test strip NE GATIVE NEGATIVE Urine nitrite detection by test strip NEGATIVE NEGATIVE Urine total bilirubin detection by test strip NEGA TIVE NEGATIVE Urine urobilinogen measurement by automated test strip (mass/volume) NORMAL NORMAL Urine leukocyte esterase detection by dipstick NEG ATIVE NEGATIVE Automated urine sediment erythrocyte cou nt by microscopy (number/high power field) NONE NRG Automated urine sediment leukocyte count by microscopy (number/high power field) NONE NRG Bacteria detection in urine sediment by light microsco py NONE NRG Squamous epithelial cells detection in u rine sediment by light microscopy 2-5 NRG Crystals detection in urine sediment by light microsco py NONE NRG Casts detection in urine sediment by light microscopy PRESENT NRG Mucus detection in urine sediment by light microscopy NEGATIVE NRG Complete urinalysis with reflex to culture NO NRG Hyaline casts detection in urine sediment by light toribio roscopy 10-25 NRG Capillary blood glucose measurement by g lucometer (mass/volume) - 09/10/17 15:04 Capillary blood glucose measurement by glucometer (mas s/volume) 414 mg/dL 70-110 Capillary blood glucose measurement by g lucometer (mass/volume) - 09/10/17 20:48 Capillary blood glucose measurement by glucometer (mas s/volume) 292 mg/dL 70-110 Complete blood count (CBC) with automate d white blood cell (WBC) differential - 09/11/17 05:05 Blood leukocytes automated count (number/volume) 13.1 10*3/uL 4.3-11.0 Blood erythrocytes automated count (number/volume) 4.42 10*6/uL 4.35-5.85 Venous blood hemoglobin measurement (mass/volume) 13.2 g/dL 13.3-17.7 Blood hematocrit (volume fraction) 39 % 40-54 Automated erythrocyte mean corpuscular volume 89 [ foz_us] 80-99 Automated erythrocyte mean corpuscular h emoglobin (mass per erythrocyte) 30 pg 25-34 Automated erythrocyte mean corpuscular h emoglobin concentration measurement (mass/volume) 34 g/dL 32-36 Automated erythrocyte distribution width ratio 14. 4 % 10.0- 14.5 Automated blood platelet count (count/volume) 259 10*3/uL [...] 10*3 1.0-4.0 Blood monocytes automated count (number/volume) 0. 2 10*3 0.0-1.0 Automated eosinophil count 0.0 10*3/uL 0 .0-0.3 Automated blood basophil count (count/volume) 0.0 10*3/uL 0.0-0.1 Whole blood basic metabolic panel - 09/27 05:05 Serum or plasma sodium measurement (moles/volume) 135 mmol/L 135-145 Serum or plasma potassium measurement (moles/volume) 3.9 mmol/L 3.6-5.0 Serum or plasma chloride measurement (moles/volume) 96 mmol/L 98-107 Carbon dioxide 21 mmol/L 21-32 Serum or plasma anion gap determination (moles/volume) 18 mmol/L 5-14 Serum or plasma urea nitrogen measurement (mass/volume ) 36 mg/dL 7-18 Serum or plasma creatinine measurement (mass/volume) 1.65 mg/dL 0.60-1.30 Serum or plasma urea nitrogen/creatinine mass ratio 22 NRG Serum or plasma creatinine measurement w ith calculation of estimated glomerular filtration rate 42 NRG Serum or plasma glucose measurement (mass/volume) 556 mg/dL 70-105 Serum or plasma calcium measurement (mass/volume) 8.9 mg/dL 8.5-10.1 Serum or plasma phosphate measurement (m ass/volume) - 09/11/17 05:05 Serum or plasma phosphate measurement (mass/volume) 5.9 mg/dL 2.3-4.7 Magnesium - 09/11/17 05:05 Magnesium 2.1 mg/dL 1.8-2.4 Capillary blood glucose measurement by g lucometer (mass/volume) - 09/11/17 11:03 Capillary blood glucose measurement by glucometer (mas s/volume) 497 mg/dL 70-110 Capillary blood glucose measurement by g lucometer (mass/volume) - 09/11/17 16:20 Capillary blood glucose measurement by glucometer (mas s/volume) 387 mg/dL 70-110 Capillary blood glucose measurement by g lucometer (mass/volume) - 09/11/17 22:04 Capillary blood glucose measurement by glucometer (mas s/volume) 254 mg/dL 70-110 Complete blood count (CBC) with automate d white blood cell (WBC) differential - 09/12/17 04:51 Blood leukocytes automated count (number/volume) 18.4 10*3/uL 4.3-11.0 Blood erythrocytes automated count (number/volume) 4.63 10*6/uL 4.35-5.85 Venous blood hemoglobin measurement (mass/volume) 13.9 g/dL 13.3-17.7 Blood hematocrit (volume fraction) 41 % 40-54 Automated erythrocyte mean corpuscular volume 89 [ foz_us] 80-99 Automated erythrocyte mean corpuscular h emoglobin (mass per erythrocyte) 30 pg 25-34 Automated erythrocyte mean corpuscular h emoglobin concentration measurement (mass/volume) 34 g/dL 32-36 Automated erythrocyte distribution width ratio 14. 5 % 10.0- 14.5 Automated blood platelet count (count/volume) 276 10*3/uL [...] 10*3 1.0-4.0 Blood monocytes automated count (number/volume) 0. 6 10*3 0.0-1.0 Automated eosinophil count 0.0 10*3/uL 0 .0-0.3 Automated blood basophil count (count/volume) 0.0 10*3/uL 0.0-0.1 Blood manual differential performed dete ction - 09/12/17 04:51 Blood monocytes/100 leukocytes 1 % NRG Manual blood segmented neutrophils/100 leukocytes 95 % NRG Blood band neutrophils/100 leukocytes 0 % NRG Manual blood lymphocytes/100 leukocytes 4 % NRG Manual eosinophils/100 leukocytes in nose 0 % NRG Manual blood basophils/100 leukocytes 0 % NRG Blood erythrocyte morphology finding identification NORMAL NRG Whole blood basic metabolic panel - 10/25 04:51 Serum or plasma sodium measurement (moles/volume) 133 mmol/L 135-145 Serum or plasma potassium measurement (moles/volume) 4.0 mmol/L 3.6-5.0 Serum or plasma chloride measurement (moles/volume) 96 mmol/L 98-107 Carbon dioxide 24 mmol/L 21-32 Serum or plasma anion gap determination (moles/volume) 13 mmol/L 5-14 Serum or plasma urea nitrogen measurement (mass/volume ) 51 mg/dL 7-18 Serum or plasma creatinine measurement (mass/volume) 1.44 mg/dL 0.60-1.30 Serum or plasma urea nitrogen/creatinine mass ratio 35 NRG Serum or plasma creatinine measurement w ith calculation of estimated glomerular filtration rate 50 NRG Serum or plasma glucose measurement (mass/volume) 244 mg/dL 70-105 Serum or plasma calcium measurement (mass/volume) 8.5 mg/dL 8.5-10.1 Magnesium - 09/12/17 04:51 Magnesium 2.1 mg/dL 1.8-2.4 Capillary blood glucose measurement by g lucometer (mass/volume) - 09/12/17 16:01 Capillary blood glucose measurement by glucometer (mas s/volume) 376 mg/dL 70-110 Capillary blood glucose measurement by g lucometer (mass/volume) - 09/12/17 20:24 Capillary blood glucose measurement by glucometer (mas s/volume) 347 mg/dL 70-110 Complete blood count (CBC) with automate d white blood cell (WBC) differential - 09/13/17 04:16 Blood leukocytes automated count (number/volume) 15.5 10*3/uL 4.3-11.0 Blood erythrocytes automated count (number/volume) 4.48 10*6/uL 4.35-5.85 Venous blood hemoglobin measurement (mass/volume) 13.4 g/dL 13.3-17.7 Blood hematocrit (volume fraction) 40 % 40-54 Automated erythrocyte mean corpuscular volume 90 [ foz_us] 80-99 Automated erythrocyte mean corpuscular h emoglobin (mass per erythrocyte) 30 pg 25-34 Automated erythrocyte mean corpuscular h emoglobin concentration measurement (mass/volume) 33 g/dL 32-36 Automated erythrocyte distribution width ratio 14. 5 % 10.0- 14.5 Automated blood platelet count (count/volume) 270 10*3/uL [...] 10*3 1.0-4.0 Blood monocytes automated count (number/volume) 0. 7 10*3 0.0-1.0 Automated eosinophil count 0.0 10*3/uL 0 .0-0.3 Automated blood basophil count (count/volume) 0.0 10*3/uL 0.0-0.1 Whole blood basic metabolic panel - 11/25 04:16 Serum or plasma sodium measurement (moles/volume) 135 mmol/L 135-145 Serum or plasma potassium measurement (moles/volume) 4.2 mmol/L 3.6-5.0 Serum or plasma chloride measurement (moles/volume) 104 mmol/L 98-107 Carbon dioxide 22 mmol/L 21-32 Serum or plasma anion gap determination (moles/volume) 9 mmol/L 5-14 Serum or plasma urea nitrogen measurement (mass/volume ) 42 mg/dL 7-18 Serum or plasma creatinine measurement (mass/volume) 1.18 mg/dL 0.60-1.30 Serum or plasma urea nitrogen/creatinine mass ratio 36 NRG Serum or plasma creatinine measurement w ith calculation of estimated glomerular filtration rate > NRG Serum or plasma glucose measurement (mass/volume) 186 mg/dL 70-105 Serum or plasma calcium measurement (mass/volume) 8.2 mg/dL 8.5-10.1 Magnesium - 09/13/17 04:16 Magnesium 2.3 mg/dL 1.8-2.4 Capillary blood glucose measurement by g lucometer (mass/volume) - 09/13/17 11:06 Capillary blood glucose measurement by glucometer (mas s/volume) 195 mg/dL 70-110 Complete blood count (CBC) with automate d white blood cell (WBC) differential - 09/15/17 01:38 Blood leukocytes automated count (number/volume) 20.3 10*3/uL 4.3-11.0 Blood erythrocytes automated count (number/volume) 4.92 10*6/uL 4.35-5.85 Venous blood hemoglobin measurement (mass/volume) 14.7 g/dL 13.3-17.7 Blood hematocrit (volume fraction) 45 % 40-54 Automated erythrocyte mean corpuscular volume 91 [ foz_us] 80-99 Automated erythrocyte mean corpuscular h emoglobin (mass per erythrocyte) 30 pg 25-34 Automated erythrocyte mean corpuscular h emoglobin concentration measurement (mass/volume) 33 g/dL 32-36 Automated erythrocyte distribution width ratio 14. 4 % 10.0- 14.5 Automated blood platelet count (count/volume) 330 10*3/uL 130-400 Automated blood platelet mean volume measurement 10.2 [foz_us] 7.4-10.4 Automated blood neutrophils/100 leukocytes 65 % 42-75 Automated blood lymphocytes/100 leukocytes 25 % 12-44 Blood monocytes/100 leukocytes 10 % 0-12 Automated blood eosinophils/100 leukocytes 1 % 0-10 Automated blood basophils/100 leukocytes 0 % 0-10 Blood neutrophils automated count (number/volume) 13.1 10*3 1.8-7.8 Blood lymphocytes automated count (number/volume) 5.0 10*3 1.0-4.0 Blood monocytes automated count (number/volume) 2. 0 10*3 0.0-1.0 Automated eosinophil count 0.1 10*3/uL 0 .0-0.3 Automated blood basophil count (count/volume) 0.1 10*3/uL 0.0-0.1 PT panel in platelet poor plasma by coag ulation assay - 09/15/17 01:38 Prothrombin time (PT) in platelet poor plasma by coagu lation assay 12.6 s 12.2-14.7 INR in platelet poor plasma or blood by coagulation as say 0.9 0.8-1.4 Activated partial thromboplastin time (a PTT) in platelet poor plasma bycoagulation assay - 09/15/17 01:38 Activated partial thromboplastin time (a PTT) in platelet poor plasma bycoagulation assay 23 s 24-35 Blood manual differential performed dete ction - 09/15/17 01:38 Blood monocytes/100 leukocytes 7 % NRG Manual blood segmented neutrophils/100 leukocytes 62 % NRG Blood band neutrophils/100 leukocytes 0 % NRG Manual blood lymphocytes/100 leukocytes 25 % NRG Manual eosinophils/100 leukocytes in nose 2 % NRG Manual blood basophils/100 leukocytes 0 % NRG Blood lymphocytes variant/100 leukocytes 4 % NRG Blood toxic granules detection by light microscopy 1+ NRG Comprehensive metabolic panel - 09/15/17 01:38 Serum or plasma sodium measurement (moles/volume) 135 mmol/L 135-145 Serum or plasma potassium measurement (moles/volume) 4.3 mmol/L 3.6-5.0 Serum or plasma chloride measurement (moles/volume) 101 mmol/L 98-107 Carbon dioxide 22 mmol/L 21-32 Serum or plasma anion gap determination (moles/volume) 12 mmol/L 5-14 Serum or plasma urea nitrogen measurement (mass/volume ) 37 mg/dL 7-18 Serum or plasma creatinine measurement (mass/volume) 1.31 mg/dL 0.60-1.30 Serum or plasma urea nitrogen/creatinine mass ratio 28 NRG Serum or plasma creatinine measurement w ith calculation of estimated glomerular filtration rate 55 NRG Serum or plasma glucose measurement (mass/volume) 340 mg/dL 70-105 Serum or plasma calcium measurement (mass/volume) 8.9 mg/dL 8.5-10.1 Serum or plasma total bilirubin measurement (mass/volu me) 0.4 mg/dL 0.1-1.0 Serum or plasma alkaline phosphatase mi surement (enzymatic activity/volume) 87 U/L 40-136 Serum or plasma aspartate aminotransfera se measurement (enzymatic activity/volume) 25 U/L 5-34 Serum or plasma alanine aminotransferase measurement (enzymatic activity/volume) 34 U/L 0-55 Serum or plasma protein measurement (mass/volume) 7.6 g/dL 6.4-8.2 Serum or plasma albumin measurement (mass/volume) 3.9 g/dL 3.2-4.5 Magnesium - 09/15/17 01:38 Magnesium 2.5 mg/dL 1.8-2.4 Serum or plasma troponin i.cardiac measu rement (mass/volume) - 09/15/17 01:38 Serum or plasma troponin i.cardiac measurement (mass/v olume) 0.40 ng/mL <0.30 Serum or plasma lithium measurement (mol es/volume) - 09/15/17 01:38 BNP level 958.4 pg/mL <100.0 Myoglobin, serum - 09/15/17 01:38 Myoglobin, serum 77.3 ng/mL 10.0-92.0 Blood lactic acid measurement (moles/vol ume) - 09/15/17 02:47 Blood lactic acid measurement (moles/volume) 1.65 mmol/L 0.50-2.00 Bacterial blood culture - 09/15/17 02:47 Bacterial blood culture NG NRG Bacterial blood culture - 09/15/17 03:10 Bacterial blood culture NG NRG Methicillin resistant Staphylococcus aur eus (MRSA) screening culture - 09/15/17 03:55 Methicillin resistant Staphylococcus aureus (MRSA) scr eening culture NEG NRG Capillary blood glucose measurement by g lucometer (mass/volume) - 09/15/17 05:30 Capillary blood glucose measurement by glucometer (mas s/volume) 354 mg/dL 70-110 Complete blood count (CBC) with automate d white blood cell (WBC) differential - 09/15/17 08:33 Blood leukocytes automated count (number/volume) 11.0 10*3/uL 4.3-11.0 Blood erythrocytes automated count (number/volume) 4.45 10*6/uL 4.35-5.85 Venous blood hemoglobin measurement (mass/volume) 13.3 g/dL 13.3-17.7 Blood hematocrit (volume fraction) 40 % 40-54 Automated erythrocyte mean corpuscular volume 91 [ foz_us] 80-99 Automated erythrocyte mean corpuscular h emoglobin (mass per erythrocyte) 30 pg 25-34 Automated erythrocyte mean corpuscular h emoglobin concentration measurement (mass/volume) 33 g/dL 32-36 Automated erythrocyte distribution width ratio 14. 2 % 10.0- 14.5 Automated blood platelet count (count/volume) 255 10*3/uL 130-400 Automated blood platelet mean volume measurement 10.2 [foz_us] 7.4-10.4 Automated blood neutrophils/100 leukocytes 73 % 42-75 Automated blood lymphocytes/100 leukocytes 17 % 12-44 Blood monocytes/100 leukocytes 9 % 0-12 Automated blood eosinophils/100 leukocytes 1 % 0-10 Automated blood basophils/100 leukocytes 0 % 0-10 Blood neutrophils automated count (number/volume) 8.0 10*3 1.8-7.8 Blood lymphocytes automated count (number/volume) 1.9 10*3 1.0-4.0 Blood monocytes automated count (number/volume) 1. 0 10*3 0.0-1.0 Automated eosinophil count 0.1 10*3/uL 0 .0-0.3 Automated blood basophil count (count/volume) 0.0 10*3/uL 0.0-0.1 Comprehensive metabolic panel - 09/15/17 08:33 Serum or plasma sodium measurement (moles/volume) 135 mmol/L 135-145 Serum or plasma potassium measurement (moles/volume) 4.2 mmol/L 3.6-5.0 Serum or plasma chloride measurement (moles/volume) 101 mmol/L 98-107 Carbon dioxide 24 mmol/L 21-32 Serum or plasma anion gap determination (moles/volume) 10 mmol/L 5-14 Serum or plasma urea nitrogen measurement (mass/volume ) 37 mg/dL 7-18 Serum or plasma creatinine measurement (mass/volume) 1.28 mg/dL 0.60-1.30 Serum or plasma urea nitrogen/creatinine mass ratio 29 NRG Serum or plasma creatinine measurement w ith calculation of estimated glomerular filtration rate 57 NRG Serum or plasma glucose measurement (mass/volume) 296 mg/dL 70-105 Serum or plasma calcium measurement (mass/volume) 8.3 mg/dL 8.5-10.1 Serum or plasma total bilirubin measurement (mass/volu me) 0.4 mg/dL 0.1-1.0 Serum or plasma alkaline phosphatase mi surement (enzymatic activity/volume) 69 U/L 40-136 Serum or plasma aspartate aminotransfera se measurement (enzymatic activity/volume) 17 U/L 5-34 Serum or plasma alanine aminotransferase measurement (enzymatic activity/volume) 27 U/L 0-55 Serum or plasma protein measurement (mass/volume) 6.3 g/dL 6.4-8.2 Serum or plasma albumin measurement (mass/volume) 3.3 g/dL 3.2-4.5 Serum or plasma troponin i.cardiac measu rement (mass/volume) - 09/15/17 08:33 Serum or plasma troponin i.cardiac measurement (mass/v olume) 0.61 ng/mL <0.30 Myoglobin, serum - 09/15/17 08:33 Myoglobin, serum 86.9 ng/mL 10.0-92.0 Capillary blood glucose measurement by g lucometer (mass/volume) - 09/15/17 12:39 Capillary blood glucose measurement by glucometer (mas s/volume) 383 mg/dL 70-110 Capillary blood glucose measurement by g lucometer (mass/volume) - 09/15/17 17:40 Capillary blood glucose measurement by glucometer (mas s/volume) 301 mg/dL 70-110 Capillary blood glucose measurement by g lucometer (mass/volume) - 09/15/17 23:55 Capillary blood glucose measurement by glucometer (mas s/volume) 251 mg/dL 70-110 Complete blood count (CBC) with automate d white blood cell (WBC) differential - 09/16/17 04:45 Blood leukocytes automated count (number/volume) 12.9 10*3/uL 4.3-11.0 Blood erythrocytes automated count (number/volume) 4.71 10*6/uL 4.35-5.85 Venous blood hemoglobin measurement (mass/volume) 14.1 g/dL 13.3-17.7 Blood hematocrit (volume fraction) 42 % 40-54 Automated erythrocyte mean corpuscular volume 89 [ foz_us] 80-99 Automated erythrocyte mean corpuscular h emoglobin (mass per erythrocyte) 30 pg 25-34 Automated erythrocyte mean corpuscular h emoglobin concentration measurement (mass/volume) 34 g/dL 32-36 Automated erythrocyte distribution width ratio 14. 1 % 10.0- 14.5 Automated blood platelet count (count/volume) 276 10*3/uL 130-400 Automated blood platelet mean volume measurement 10.4 [foz_us] 7.4-10.4 Automated blood neutrophils/100 leukocytes 71 % 42-75 Automated blood lymphocytes/100 leukocytes 20 % 12-44 Blood monocytes/100 leukocytes 7 % 0-12 Automated blood eosinophils/100 leukocytes 2 % 0-10 Automated blood basophils/100 leukocytes 0 % 0-10 Blood neutrophils automated count (number/volume) 9.1 10*3 1.8-7.8 Blood lymphocytes automated count (number/volume) 2.6 10*3 1.0-4.0 Blood monocytes automated count (number/volume) 0. 9 10*3 0.0-1.0 Automated eosinophil count 0.2 10*3/uL 0 .0-0.3 Automated blood basophil count (count/volume) 0.0 10*3/uL 0.0-0.1 Whole blood basic metabolic panel - 02/24 04:45 Serum or plasma sodium measurement (moles/volume) 139 mmol/L 135-145 Serum or plasma potassium measurement (moles/volume) 3.6 mmol/L 3.6-5.0 Serum or plasma chloride measurement (moles/volume) 99 mmol/L 98-107 Carbon dioxide 28 mmol/L 21-32 Serum or plasma anion gap determination (moles/volume) 12 mmol/L 5-14 Serum or plasma urea nitrogen measurement (mass/volume ) 32 mg/dL 7-18 Serum or plasma creatinine measurement (mass/volume) 1.22 mg/dL 0.60-1.30 Serum or plasma urea nitrogen/creatinine mass ratio 26 NRG Serum or plasma creatinine measurement w ith calculation of estimated glomerular filtration rate 60 NRG Serum or plasma glucose measurement (mass/volume) 184 mg/dL 70-105 Serum or plasma calcium measurement (mass/volume) 8.6 mg/dL 8.5-10.1 Serum or plasma phosphate measurement (m ass/volume) - 09/16/17 04:45 Serum or plasma phosphate measurement (mass/volume) 4.2 mg/dL 2.3-4.7 Magnesium - 09/16/17 04:45 Magnesium 2.0 mg/dL 1.8-2.4 Serum or plasma troponin i.cardiac measu rement (mass/volume) - 09/16/17 04:45 Serum or plasma troponin i.cardiac measurement (mass/v olume) 0.39 ng/mL <0.30 Lipid 1996 panel - 09/16/17 04:45 Serum or plasma triglyceride measurement (mass/volume) 98 mg/dL <150 Serum or plasma cholesterol measurement (mass/volume) 95 mg/dL < 200 Serum or plasma cholesterol in HDL measurement (mass/v olume) 34 mg/dL 40-60 Cholesterol in LDL [mass/volume] in serum or plasma by direct assay 39 mg/dL 1-129 Serum or plasma cholesterol in VLDL measurement (mass/ volume) 20 mg/dL 5-40 Serum or plasma lithium measurement (mol es/volume) - 09/16/17 04:45 BNP level 404.4 pg/mL <100.0 Capillary blood glucose measurement by g lucometer (mass/volume) - 09/16/17 05:59 Capillary blood glucose measurement by glucometer (mas s/volume) 197 mg/dL 70-110 Capillary blood glucose measurement by g lucometer (mass/volume) - 09/16/17 12:14 Capillary blood glucose measurement by glucometer (mas s/volume) 349 mg/dL 70-110 Capillary blood glucose measurement by g lucometer (mass/volume) - 09/16/17 18:09 Capillary blood glucose measurement by glucometer (mas s/volume) 253 mg/dL 70-110 Capillary blood glucose measurement by g lucometer (mass/volume) - 09/16/17 23:46 Capillary blood glucose measurement by glucometer (mas s/volume) 407 mg/dL 70-110 Complete blood count (CBC) with automate d white blood cell (WBC) differential - 09/17/17 04:45 Blood leukocytes automated count (number/volume) 14.5 10*3/uL 4.3-11.0 Blood erythrocytes automated count (number/volume) 5.18 10*6/uL 4.35-5.85 Venous blood hemoglobin measurement (mass/volume) 15.3 g/dL 13.3-17.7 Blood hematocrit (volume fraction) 46 % 40-54 Automated erythrocyte mean corpuscular volume 89 [ foz_us] 80-99 Automated erythrocyte mean corpuscular h emoglobin (mass per erythrocyte) 30 pg 25-34 Automated erythrocyte mean corpuscular h emoglobin concentration measurement (mass/volume) 33 g/dL 32-36 Automated erythrocyte distribution width ratio 14. 2 % 10.0- 14.5 Automated blood platelet count (count/volume) 285 10*3/uL 130-400 Automated blood platelet mean volume measurement 10.0 [foz_us] 7.4-10.4 Automated blood neutrophils/100 leukocytes 75 % 42-75 Automated blood lymphocytes/100 leukocytes 16 % 12-44 Blood monocytes/100 leukocytes 7 % 0-12 Automated blood eosinophils/100 leukocytes 2 % 0-10 Automated blood basophils/100 leukocytes 0 % 0-10 Blood neutrophils automated count (number/volume) 10.8 10*3 1.8-7.8 Blood lymphocytes automated count (number/volume) 2.3 10*3 1.0-4.0 Blood monocytes automated count (number/volume) 1. 1 10*3 0.0-1.0 Automated eosinophil count 0.3 10*3/uL 0 .0-0.3 Automated blood basophil count (count/volume) 0.0 10*3/uL 0.0-0.1 Whole blood basic metabolic panel - 03/27 04:45 Serum or plasma sodium measurement (moles/volume) 139 mmol/L 135-145 Serum or plasma potassium measurement (moles/volume) 3.9 mmol/L 3.6-5.0 Serum or plasma chloride measurement (moles/volume) 95 mmol/L 98-107 Carbon dioxide 33 mmol/L 21-32 Serum or plasma anion gap determination (moles/volume) 11 mmol/L 5-14 Serum or plasma urea nitrogen measurement (mass/volume ) 31 mg/dL 7-18 Serum or plasma creatinine measurement (mass/volume) 1.44 mg/dL 0.60-1.30 Serum or plasma urea nitrogen/creatinine mass ratio 22 NRG Serum or plasma creatinine measurement w ith calculation of estimated glomerular filtration rate 50 NRG Serum or plasma glucose measurement (mass/volume) 258 mg/dL 70-105 Serum or plasma calcium measurement (mass/volume) 9.5 mg/dL 8.5-10.1 Serum or plasma phosphate measurement (m ass/volume) - 09/17/17 04:45 Serum or plasma phosphate measurement (mass/volume) 4.1 mg/dL 2.3-4.7 Magnesium - 09/17/17 04:45 Magnesium 2.3 mg/dL 1.8-2.4 Capillary blood glucose measurement by g lucometer (mass/volume) - 09/17/17 12:26 Capillary blood glucose measurement by glucometer (mas s/volume) 344 mg/dL 70-110 Arterial blood gas measurement - 8 12:50 Blood pCO2 53 mm[Hg] 35-45 Blood pO2 135 mm[Hg] 79-93 Arterial blood bicarbonate measurement (moles/volume) 24 mmol/L 23-27 Arterial blood base excess by calculation -1.8 mmo l/L -2.5-2.5 Arterial blood oxygen saturation measurement 99 % 94-100 * Inhaled oxygen flow rate 15 NRG Arterial blood pH measurement with patient temperature correction 7.28 7.37-7.43 Arterial blood carbon dioxide, total measurement (mole s/volume) 25.6 mmol/L 21.0-31.0 Body site RT RAD NRG Assessment of wrist artery patency prior to arterial p uncture YES-POS NRG Setting of ventilation mode NO NR G Measurement of body temperature 98.6 NRG Sputum Gram stain - 09/17/17 13:00 Sputum Gram stain coccobacilli NRG Bacterial sputum culture - 09/17/17 13:0 0 FREE TEXT EXTERNAL BETA LACTAMASE NEGATIVE NRG QUANTITY OF GROWTH Moderate Growth NRG FREE TEXT ENTRY 2 PLUS NORMAL CRISTIAN NRG Bacterial sputum culture [id number] NRG Complete blood count (CBC) with automate d white blood cell (WBC) differential - 09/17/17 13:14 Blood leukocytes automated count (number/volume) 15.5 10*3/uL 4.3-11.0 Blood erythrocytes automated count (number/volume) 6.17 10*6/uL 4.35-5.85 Venous blood hemoglobin measurement (mass/volume) 18.3 g/dL 13.3-17.7 Blood hematocrit (volume fraction) 56 % 40-54 Automated erythrocyte mean corpuscular volume 90 [ foz_us] 80-99 Automated erythrocyte mean corpuscular h emoglobin (mass per erythrocyte) 30 pg 25-34 Automated erythrocyte mean corpuscular h emoglobin concentration measurement (mass/volume) 33 g/dL 32-36 Automated erythrocyte distribution width ratio 14. 6 % 10.0- 14.5 Automated blood platelet count (count/volume) 238 10*3/uL 130-400 Automated blood platelet mean volume measurement 10.2 [foz_us] 7.4-10.4 Automated blood neutrophils/100 leukocytes 71 % 42-75 Automated blood lymphocytes/100 leukocytes 28 % 12-44 Blood monocytes/100 leukocytes 0 % 0-12 Automated blood eosinophils/100 leukocytes 1 % 0-10 Automated blood basophils/100 leukocytes 1 % 0-10 Blood neutrophils automated count (number/volume) 11.0 10*3 1.8-7.8 Blood lymphocytes automated count (number/volume) 4.3 10*3 1.0-4.0 Blood monocytes automated count (number/volume) 0. 1 10*3 0.0-1.0 Automated eosinophil count 0.1 10*3/uL 0 .0-0.3 Automated blood basophil count (count/volume) 0.1 10*3/uL 0.0-0.1 Comprehensive metabolic panel - 09/17/17 13:14 Serum or plasma sodium measurement (moles/volume) 133 mmol/L 135-145 Serum or plasma potassium measurement (moles/volume) 4.6 mmol/L 3.6-5.0 Serum or plasma chloride measurement (moles/volume) 97 mmol/L 98-107 Carbon dioxide 24 mmol/L 21-32 Serum or plasma anion gap determination (moles/volume) 12 mmol/L 5-14 Serum or plasma urea nitrogen measurement (mass/volume ) 26 mg/dL 7-18 Serum or plasma creatinine measurement (mass/volume) 1.40 mg/dL 0.60-1.30 Serum or plasma urea nitrogen/creatinine mass ratio 19 NRG Serum or plasma creatinine measurement w ith calculation of estimated glomerular filtration rate 51 NRG Serum or plasma glucose measurement (mass/volume) 330 mg/dL 70-105 Serum or plasma calcium measurement (mass/volume) 8.6 mg/dL 8.5-10.1 Serum or plasma total bilirubin measurement (mass/volu me) 0.4 mg/dL 0.1-1.0 Serum or plasma alkaline phosphatase mi surement (enzymatic activity/volume) 137 U/L 40-136 Serum or plasma aspartate aminotransfera se measurement (enzymatic activity/volume) 25 U/L 5-34 Serum or plasma alanine aminotransferase measurement (enzymatic activity/volume) 21 U/L 0-55 Serum or plasma protein measurement (mass/volume) 7.2 g/dL 6.4-8.2 Serum or plasma albumin measurement (mass/volume) 3.3 g/dL 3.2-4.5 Magnesium - 09/17/17 13:14 Magnesium 2.3 mg/dL 1.8-2.4 Serum or plasma troponin i.cardiac measu rement (mass/volume) - 09/17/17 13:14 Serum or plasma troponin i.cardiac measurement (mass/v olume) < ng/mL <0.30 Blood manual differential performed dete ction - 09/17/17 13:14 Blood monocytes/100 leukocytes 1 % NRG Manual blood segmented neutrophils/100 leukocytes 54 % NRG Blood band neutrophils/100 leukocytes 10 % NRG Manual blood lymphocytes/100 leukocytes 33 % NRG Manual eosinophils/100 leukocytes in nose 0 % NRG Manual blood basophils/100 leukocytes 0 % NRG Blood erythrocyte morphology finding identification NORMAL NRG Manual blood myelocytes/100 leukocytes 2 % NRG Serum or plasma triglyceride measurement (mass/volume) - 09/17/17 13:14 Serum or plasma triglyceride measurement (mass/volume) 265 mg/dL <150 Whole blood hemoglobin and hematocrit pa florina - 09/17/17 13:48 Venous blood hemoglobin measurement (mass/volume) 15.4 g/dL 13.3-17.7 Blood hematocrit (volume fraction) 47 % 40-54 Arterial blood gas measurement - 8 13:58 Blood pCO2 60 mm[Hg] 35-45 Blood pO2 385 mm[Hg] 79-93 Arterial blood bicarbonate measurement (moles/volume) 25 mmol/L 23-27 Arterial blood base excess by calculation -2.2 mmo l/L -2.5-2.5 Arterial blood oxygen saturation measurement 100 % 94-100 * Inhaled oxygen flow rate 100% NRG Arterial blood pH measurement with patient temperature correction 7.23 7.37-7.43 Arterial blood carbon dioxide, total measurement (mole s/volume) 26.4 mmol/L 21.0-31.0 Body site RT RADIAL NRG Assessment of wrist artery patency prior to arterial p uncture YES-POS NRG Setting of ventilation mode NO NR G Measurement of body temperature 96.9 NRG Arterial blood gas measurement - 8 14:10 Blood pCO2 68 mm[Hg] 35-45 Blood pO2 371 mm[Hg] 79-93 Arterial blood bicarbonate measurement (moles/volume) 26 mmol/L 23-27 Arterial blood base excess by calculation -1.8 mmo l/L -2.5-2.5 Arterial blood oxygen saturation measurement 100 % 94-100 * Inhaled oxygen flow rate 100% NRG Arterial blood pH measurement with patient temperature correction 7.20 7.37-7.43 Arterial blood carbon dioxide, total measurement (mole s/volume) 27.8 mmol/L 21.0-31.0 Body site RT SUBCLAVIAN CL ART NRG Assessment of wrist artery patency prior to arterial p uncture NA NRG Setting of ventilation mode YES NR G Measurement of body temperature 96.9 NRG Complete blood count (CBC) with automate d white blood cell (WBC) differential - 10/11/17 19:30 Blood leukocytes automated count (number/volume) 19.7 10*3/uL 4.3-11.0 Blood erythrocytes automated count (number/volume) 4.46 10*6/uL 4.35-5.85 Venous blood hemoglobin measurement (mass/volume) 13.3 g/dL 13.3-17.7 Blood hematocrit (volume fraction) 40 % 40-54 Automated erythrocyte mean corpuscular volume 90 [ foz_us] 80-99 Automated erythrocyte mean corpuscular h emoglobin (mass per erythrocyte) 30 pg 25-34 Automated erythrocyte mean corpuscular h emoglobin concentration measurement (mass/volume) 33 g/dL 32-36 Automated erythrocyte distribution width ratio 14. 9 % 10.0- 14.5 Automated blood platelet count (count/volume) 209 10*3/uL 130-400 Automated blood platelet mean volume measurement 9.7 [foz_us] 7.4-10.4 Automated blood neutrophils/100 leukocytes 80 % 42-75 Automated blood lymphocytes/100 leukocytes 11 % 12-44 Blood monocytes/100 leukocytes 9 % 0-12 Automated blood eosinophils/100 leukocytes 0 % 0-10 Automated blood basophils/100 leukocytes 0 % 0-10 Blood neutrophils automated count (number/volume) 15.8 10*3 1.8-7.8 Blood lymphocytes automated count (number/volume) 2.2 10*3 1.0-4.0 Blood monocytes automated count (number/volume) 1. 8 10*3 0.0-1.0 Automated eosinophil count 0.0 10*3/uL 0 .0-0.3 Automated blood basophil count (count/volume) 0.0 10*3/uL 0.0-0.1 Complete urinalysis with reflex to cultu re - 10/11/17 19:30 Urine color determination YELLOW NRG Urine clarity determination SLIGHTLY CLOUDY NRG Urine pH measurement by test strip 5 5-9 Specific gravity of urine by test strip 1.010 1.016-1.022 Urine protein assay by test strip, semi-quantitative 3+ NEGATIVE Urine glucose detection by automated test strip NE GATIVE NEGATIVE Erythrocytes detection in urine sediment by light micr oscopy 5+ NEGATIVE Urine ketones detection by automated test strip NE GATIVE NEGATIVE Urine nitrite detection by test strip NEGATIVE NEGATIVE Urine total bilirubin detection by test strip NEGA TIVE NEGATIVE Urine urobilinogen measurement by automated test strip (mass/volume) NORMAL NORMAL Urine leukocyte esterase detection by dipstick 2+ NEGATIVE Automated urine sediment erythrocyte cou nt by microscopy (number/high power field) [HPF] NRG Automated urine sediment leukocyte count by microscopy (number/high power field) [HPF] NRG Bacteria detection in urine sediment by light microsco py LARGE NRG Crystals detection in urine sediment by light microsco py NONE NRG Casts detection in urine sediment by light microscopy NONE NRG Mucus detection in urine sediment by light microscopy SMALL NRG Complete urinalysis with reflex to culture YES NRG Comprehensive metabolic panel - 10/11/17 19:30 Serum or plasma sodium measurement (moles/volume) 136 mmol/L 135-145 Serum or plasma potassium measurement (moles/volume) 4.3 mmol/L 3.6-5.0 Serum or plasma chloride measurement (moles/volume) 99 mmol/L 98-107 Carbon dioxide 21 mmol/L 21-32 Serum or plasma anion gap determination (moles/volume) 16 mmol/L 5-14 Serum or plasma urea nitrogen measurement (mass/volume ) 22 mg/dL 7-18 Serum or plasma creatinine measurement (mass/volume) 1.33 mg/dL 0.60-1.30 Serum or plasma urea nitrogen/creatinine mass ratio 17 NRG Serum or plasma creatinine measurement w ith calculation of estimated glomerular filtration rate 54 NRG Serum or plasma glucose measurement (mass/volume) 176 mg/dL 70-105 Serum or plasma calcium measurement (mass/volume) 9.8 mg/dL 8.5-10.1 Serum or plasma total bilirubin measurement (mass/volu me) 0.8 mg/dL 0.1-1.0 Serum or plasma alkaline phosphatase mi surement (enzymatic activity/volume) 80 U/L 40-136 Serum or plasma aspartate aminotransfera se measurement (enzymatic activity/volume) 14 U/L 5-34 Serum or plasma alanine aminotransferase measurement (enzymatic activity/volume) 15 U/L 0-55 Serum or plasma protein measurement (mass/volume) 8.2 g/dL 6.4-8.2 Serum or plasma albumin measurement (mass/volume) 4.1 g/dL 3.2-4.5 Blood manual differential performed dete ction - 10/11/17 19:30 Blood monocytes/100 leukocytes 4 % NRG Manual blood segmented neutrophils/100 leukocytes 79 % NRG Blood band neutrophils/100 leukocytes 1 % NRG Manual blood lymphocytes/100 leukocytes 15 % NRG Manual eosinophils/100 leukocytes in nose 0 % NRG Manual blood basophils/100 leukocytes 1 % NRG Blood erythrocyte morphology finding identification NORMAL NRG Bacterial urine culture - 10/11/17 19:30 Bacterial urine culture [id number] NRG COLONY COUNT >100,000/ML NRG FTX;REPORTABLE SENSITIVITY REPORTED 10/12/17 15:30 [facility] [employer] [facility] Bacterial susceptibility panel - 8 19:30 Gentamicin susceptibility test by minimum inhibitory c oncentration >= NRG Trimethoprim/sulfamethoxazole susceptibi lity test by minimum inhibitoryconcentration R NRG Ampicillin susceptibility test by minimum inhibitory c oncentration >= NRG Tobramycin susceptibility test by minimum inhibitory c oncentration 8 NRG Cefazolin susceptibility test by minimum inhibitory co ncentration <= NRG Ceftriaxone susceptibility test by minimum inhibitory concentration <= NRG Ampicillin/sulbactam susceptibility test by minimum inhibitory concentration I NRG Piperacillin/tazobactam susceptibility t est by minimum inhibitory concentration S NRG Ciprofloxacin susceptibility test by minimum inhibitor y concentration <= NRG Meropenem susceptibility test by minimum inhibitory co ncentration <= NRG Nitrofurantoin susceptibility test by mi nimum inhibitory concentration <= NRG Aztreonam susceptibility test by minimum inhibitory co ncentration <= NRG Extended spectrum beta lactamase (ESBL) producing bacteria susceptibility test by minimum inhibitory concentration - NRG Amikacin susceptibility test by minimum inhibitory con centration S NRG BMP - 10/20/17 14:29 GLUCOSE 267 mg/dL 65-99 UREA NITROGEN (BUN) 18 mg/dL 7-25 CREATININE 1.10 mg/dL 0.70-1.25 eGFR NON-AFR. TRINIDADIAN 72 mL/min/1.73m2 > OR = 60 eGFR 83 mL/min/1.73m2 > OR = 60 BUN/CREATININE RATIO NOT APPLICABLE (calc) 6-22 SODIUM 141 mmol/L 135-146 POTASSIUM 4.2 mmol/L 3.5-5.3 CHLORIDE 99 mmol/L 98-110 CARBON DIOXIDE 33 mmol/L 20-31 CALCIUM 10.1 mg/dL 8.6-10.3 Complete blood count (CBC) with automate d white blood cell (WBC) differential - 10/29/17 10:00 Blood leukocytes automated count (number/volume) 8.1 10*3/uL 4.3-11.0 Blood erythrocytes automated count (number/volume) 4.36 10*6/uL 4.35-5.85 Venous blood hemoglobin measurement (mass/volume) 13.1 g/dL 13.3-17.7 Blood hematocrit (volume fraction) 40 % 40-54 Automated erythrocyte mean corpuscular volume 91 [ foz_us] 80-99 Automated erythrocyte mean corpuscular h emoglobin (mass per erythrocyte) 30 pg 25-34 Automated erythrocyte mean corpuscular h emoglobin concentration measurement (mass/volume) 33 g/dL 32-36 Automated erythrocyte distribution width ratio 15. 2 % 10.0- 14.5 Automated blood platelet count (count/volume) 245 10*3/uL 130-400 Automated blood platelet mean volume measurement 9.6 [foz_us] 7.4-10.4 Automated blood neutrophils/100 leukocytes 64 % 42-75 Automated blood lymphocytes/100 leukocytes 26 % 12-44 Blood monocytes/100 leukocytes 8 % 0-12 Automated blood eosinophils/100 leukocytes 2 % 0-10 Automated blood basophils/100 leukocytes 1 % 0-10 Blood neutrophils automated count (number/volume) 5.1 10*3 1.8-7.8 Blood lymphocytes automated count (number/volume) 2.1 10*3 1.0-4.0 Blood monocytes automated count (number/volume) 0. 6 10*3 0.0-1.0 Automated eosinophil count 0.2 10*3/uL 0 .0-0.3 Automated blood basophil count (count/volume) 0.1 10*3/uL 0.0-0.1 Comprehensive metabolic panel - 10/29/17 10:00 Serum or plasma sodium measurement (moles/volume) 137 mmol/L 135-145 Serum or plasma potassium measurement (moles/volume) 4.3 mmol/L 3.6-5.0 Serum or plasma chloride measurement (moles/volume) 104 mmol/L 98-107 Carbon dioxide 23 mmol/L 21-32 Serum or plasma anion gap determination (moles/volume) 10 mmol/L 5-14 Serum or plasma urea nitrogen measurement (mass/volume ) 19 mg/dL 7-18 Serum or plasma creatinine measurement (mass/volume) 0.97 mg/dL 0.60-1.30 Serum or plasma urea nitrogen/creatinine mass ratio 20 NRG Serum or plasma creatinine measurement w ith calculation of estimated glomerular filtration rate > NRG Serum or plasma glucose measurement (mass/volume) 227 mg/dL 70-105 Serum or plasma calcium measurement (mass/volume) 9.1 mg/dL 8.5-10.1 Serum or plasma total bilirubin measurement (mass/volu me) 0.3 mg/dL 0.1-1.0 Serum or plasma alkaline phosphatase mi surement (enzymatic activity/volume) 71 U/L 40-136 Serum or plasma aspartate aminotransfera se measurement (enzymatic activity/volume) 24 U/L 5-34 Serum or plasma alanine aminotransferase measurement (enzymatic activity/volume) 27 U/L 0-55 Serum or plasma protein measurement (mass/volume) 7.4 g/dL 6.4-8.2 Serum or plasma albumin measurement (mass/volume) 4.0 g/dL 3.2-4.5 Lipase - 10/29/17 10:00 Lipase 187 U/L 8-78 Serum or plasma troponin i.cardiac measu rement (mass/volume) - 10/29/17 10:00 Serum or plasma troponin i.cardiac measurement (mass/v olume) < ng/mL <0.30 Complete urinalysis with reflex to cultu re - 10/29/17 13:13 Urine color determination YELLOW NRG Urine clarity determination CLEAR NR G Urine pH measurement by test strip 5 5-9 Specific gravity of urine by test strip 1.015 1.016-1.022 Urine protein assay by test strip, semi-quantitative 3+ NEGATIVE Urine glucose detection by automated test strip 1+ NEGATIVE Erythrocytes detection in urine sediment by light micr oscopy NEGATIVE NEGATIVE Urine ketones detection by automated test strip NE GATIVE NEGATIVE Urine nitrite detection by test strip NEGATIVE NEGATIVE Urine total bilirubin detection by test strip NEGA TIVE NEGATIVE Urine urobilinogen measurement by automated test strip (mass/volume) NORMAL NORMAL Urine leukocyte esterase detection by dipstick NEG ATIVE NEGATIVE Automated urine sediment erythrocyte cou nt by microscopy (number/high power field) NONE NRG Automated urine sediment leukocyte count by microscopy (number/high power field) NONE NRG Bacteria detection in urine sediment by light microsco py NEGATIVE NRG Squamous epithelial cells detection in u rine sediment by light microscopy 0-2 NRG Crystals detection in urine sediment by light microsco py NONE NRG Casts detection in urine sediment by light microscopy NONE NRG Mucus detection in urine sediment by light microscopy NEGATIVE NRG Complete urinalysis with reflex to culture NO NRG Capillary blood glucose measurement by g lucometer (mass/volume) - 11/13/17 11:01 Capillary blood glucose measurement by glucometer (mas s/volume) 321 mg/dL 70-110 Complete blood count (CBC) with automate d white blood cell (WBC) differential - 11/13/17 11:08 Blood leukocytes automated count (number/volume) 9.0 10*3/uL 4.3-11.0 Blood erythrocytes automated count (number/volume) 4.42 10*6/uL 4.35-5.85 Venous blood hemoglobin measurement (mass/volume) 13.0 g/dL 13.3-17.7 Blood hematocrit (volume fraction) 39 % 40-54 Automated erythrocyte mean corpuscular volume 89 [ foz_us] 80-99 Automated erythrocyte mean corpuscular h emoglobin (mass per erythrocyte) 29 pg 25-34 Automated erythrocyte mean corpuscular h emoglobin concentration measurement (mass/volume) 33 g/dL 32-36 Automated erythrocyte distribution width ratio 15. 7 % 10.0- 14.5 Automated blood platelet count (count/volume) 226 10*3/uL 130-400 Automated blood platelet mean volume measurement 9.4 [foz_us] 7.4-10.4 Automated blood neutrophils/100 leukocytes 65 % 42-75 Automated blood lymphocytes/100 leukocytes 23 % 12-44 Blood monocytes/100 leukocytes 9 % 0-12 Automated blood eosinophils/100 leukocytes 3 % 0-10 Automated blood basophils/100 leukocytes 1 % 0-10 Blood neutrophils automated count (number/volume) 5.8 10*3 1.8-7.8 Blood lymphocytes automated count (number/volume) 2.1 10*3 1.0-4.0 Blood monocytes automated count (number/volume) 0. 8 10*3 0.0-1.0 Automated eosinophil count 0.2 10*3/uL 0 .0-0.3 Automated blood basophil count (count/volume) 0.1 10*3/uL 0.0-0.1 Comprehensive metabolic panel - 11/13/17 11:08 Serum or plasma sodium measurement (moles/volume) 139 mmol/L 135-145 Serum or plasma potassium measurement (moles/volume) 4.4 mmol/L 3.6-5.0 Serum or plasma chloride measurement (moles/volume) 103 mmol/L 98-107 Carbon dioxide 27 mmol/L 21-32 Serum or plasma anion gap determination (moles/volume) 9 mmol/L 5-14 Serum or plasma urea nitrogen measurement (mass/volume ) 23 mg/dL 7-18 Serum or plasma creatinine measurement (mass/volume) 0.87 mg/dL 0.60-1.30 Serum or plasma urea nitrogen/creatinine mass ratio 26 NRG Serum or plasma creatinine measurement w ith calculation of estimated glomerular filtration rate > NRG Serum or plasma glucose measurement (mass/volume) 314 mg/dL 70-105 Serum or plasma calcium measurement (mass/volume) 9.6 mg/dL 8.5-10.1 Serum or plasma total bilirubin measurement (mass/volu me) 0.2 mg/dL 0.1-1.0 Serum or plasma alkaline phosphatase mi surement (enzymatic activity/volume) 83 U/L 40-136 Serum or plasma aspartate aminotransfera se measurement (enzymatic activity/volume) 24 U/L 5-34 Serum or plasma alanine aminotransferase measurement (enzymatic activity/volume) 28 U/L 0-55 Serum or plasma protein measurement (mass/volume) 7.6 g/dL 6.4-8.2 Serum or plasma albumin measurement (mass/volume) 4.1 g/dL 3.2-4.5 PT panel in platelet poor plasma by coag ulation assay - 11/13/17 11:08 Prothrombin time (PT) in platelet poor plasma by coagu lation assay 12.4 s 12.2-14.7 INR in platelet poor plasma or blood by coagulation as say 0.9 0.8-1.4 Activated partial thromboplastin time (a PTT) in platelet poor plasma bycoagulation assay - 11/13/17 11:08 Activated partial thromboplastin time (a PTT) in platelet poor plasma bycoagulation assay 26 s 24-35 Serum or plasma troponin i.cardiac measu rement (mass/volume) - 11/13/17 11:08 Serum or plasma troponin i.cardiac measurement (mass/v olume) < ng/mL <0.30 Fibrin D-dimer FEU measurement in platel et poor plasma (mass/volume) - 11/13/17 11:08 Fibrin D-dimer FEU measurement in platelet poor plasma (mass/volume) 0.53 ug/mL 0.00-0.49 HEP C PCR QUANT (Graph)-APPROVAL REQUIRE D - 11/17/18 09:14 HCV RNA, QUANTITATIVE REAL TIME PCR [id number] IU/mL NOT DETECTED HCV RNA, QUANTITATIVE REAL TIME PCR 6.84 Log IU/mL NOT DETECTED A1C - 04/07/19 10:56 HEMOGLOBIN A1c 8.6 % of total Hgb <5.7 AMMONIA - 04/07/19 10:56 AMMONIA (P) 51 umol/L < OR = 72 HEPATITIS PROFILE - 05/06/19 10:36 HEPATITIS A IGM NON-REACTIVE NON-REACTI VE HEPATITIS B SURFACE ANTIGEN NON-REACTIVE NON-REACTIVE HEPATITIS B CORE ANTIBODY (IGM) NON-REACTIVE NON-REACTIVE HEPATITIS C ANTIBODY REACTIVE NON-REACT HUMBERTO SIGNAL TO CUT-OFF 34.50 <1.00 HIV ANTIGEN/ANTIBODY - 05/06/19 10:36 HIV AG/AB, 4TH GEN NON-REACTIVE NON-ALLEGRA CTIVE PT/INR - 05/06/19 10:36 INR 0.9 NRG PT 9.4 sec 9.0-11.5 HEP C, GENOTYPE-APPROVAL REQUIRED - 04/11 02/25 10:36 HEPATITIS C VIRAL RNA GENOTYPE, LIPA(R) 2 NRG HCV RNA, QUANTITATIVE REAL TIME PCR - 10:36 HCV RNA, QUANTITATIVE REAL TIME PCR [id number] IU/mL NOT DETECTED HCV RNA, QUANTITATIVE REAL TIME PCR 7.19 Log IU/mL NOT DETECTED COMMENT NRG TEST IN QUESTION - NO TEST FOR CONTAINE R - 05/06/19 10:36 QUESTION/PROBLEM: NRG SPECIMEN(S) RECEIVED: NRG CONTACT: NRG RESOLUTION: NRG AMYLASE - 05/30/19 09:49 AMYLASE 22 U/L 21-101 BNP - 06/01/19 10:18 B TYPE NATRIURETIC PEPTIDE (BNP) 96 pg/mL <100 HEP C PCR QUANT (Graph)-APPROVAL REQUIRE D - 10/10/19 11:20 HCV RNA, QUANTITATIVE REAL TIME PCR <15 NOT DETECT ED IU/mL NOT DETECTED HCV RNA, QUANTITATIVE REAL TIME PCR <1.18 NO T DETECTED Log IU/mL NOT DETECTED CMP - 11/03/19 12:54 GLUCOSE 253 mg/dL 65-99 UREA NITROGEN (BUN) 44 mg/dL 7-25 CREATININE 1.56 mg/dL 0.70-1.25 eGFR NON-AFR. TRINIDADIAN 46 mL/min/1.73m2 > OR = 60 eGFR 54 mL/min/1.73m2 > OR = 60 BUN/CREATININE RATIO 28 (calc) 6-22 SODIUM 135 mmol/L 135-146 POTASSIUM 5.8 mmol/L 3.5-5.3 CHLORIDE 105 mmol/L 98-110 CARBON DIOXIDE 25 mmol/L 20-32 CALCIUM 9.5 mg/dL 8.6-10.3 PROTEIN, TOTAL 7.7 g/dL 6.1-8.1 ALBUMIN 4.4 g/dL 3.6-5.1 GLOBULIN 3.3 g/dL (calc) 1.9-3.7 ALBUMIN/GLOBULIN RATIO 1.3 (calc) 1.0-2. 5 BILIRUBIN, TOTAL 0.3 mg/dL 0.2-1.2 ALKALINE PHOSPHATASE 95 U/L 35-144 AST 11 U/L 10-35 ALT 10 U/L 9-46 CBC - 11/03/19 12:54 WHITE BLOOD CELL COUNT 9.8 Thousand/uL 3 .8-10.8 RED BLOOD CELL COUNT 4.60 Million/uL 4.2 0-5.80 HEMOGLOBIN 13.5 g/dL 13.2-17.1 HEMATOCRIT 42.6 % 38.5-50.0 MCV 92.6 fL 80.0-100.0 MCH 29.3 pg 27.0-33.0 MCHC 31.7 g/dL 32.0-36.0 RDW 13.4 % 11.0-15.0 PLATELET COUNT 263 Thousand/uL 140-400 MPV 10.1 fL 7.5-12.5 ABSOLUTE NEUTROPHILS 7605 cells/uL 1500- 7800 ABSOLUTE LYMPHOCYTES 1352 cells/uL 850-3 900 ABSOLUTE MONOCYTES 666 cells/uL 200-950 ABSOLUTE EOSINOPHILS 137 cells/uL 15-500 ABSOLUTE BASOPHILS 39 cells/uL 0-200 NEUTROPHILS 77.6 % NRG LYMPHOCYTES 13.8 % NRG MONOCYTES 6.8 % NRG EOSINOPHILS 1.4 % NRG BASOPHILS 0.4 % NRG LIPASE - 11/03/19 12:54 LIPASE 138 U/L AMYLASE - 11/03/19 12:54 AMYLASE 39 U/L LIPASE - 11/07/19 08:57 LIPASE 139 U/L AMYLASE - 11/21/19 09:48 AMYLASE 46 U/L 21 DIFFERENTIAL, MANUAL - 11/21/19 09:48 ABSOLUTE NEUTROPHILS 7811 cells/uL 1500- 7800 ABSOLUTE MONOCYTES 321 cells/uL 200-950 ABSOLUTE EOSINOPHILS 107 cells/uL 15-500 ABSOLUTE BASOPHILS 0 cells/uL 0-200 NEUTROPHILS 73.0 % NRG LYMPHOCYTES 20.0 % NRG MONOCYTES 3.0 % NRG EOSINOPHILS 1.0 % NRG BASOPHILS 0 % NRG ABSOLUTE BAND NEUTROPHILS 321 cells/uL 0 -750 ABSOLUTE LYMPHOCYTES 2140 cells/uL 850-3 900 BAND NEUTROPHILS 3.0 % NRG PLATELET ESTIMATION ADEQUATE ADEQUATE CBC MORPHOLOGY NORMAL Encounters ACCT No. Visit Date/Time Discharge Status Pt. Type Provider Facility Loc./Unit Complaint [id number] 08/26/2013 09:37:00 08/26/2013 23:59: 59 [facility] Outpatient BRYANT DOE DO [id number] 08/26/2013 09:37:00 08/26/2013 23:59: 59 [facility] Outpatient BRYANT DOE DO [id number] 06/20/2013 13:28:00 06/20/2013 23:59: 59 [facility] Outpatient BRYANT DOE DO [id number] 05/13/2013 09:36:00 05/13/2013 23:59: 59 [facility] Outpatient BRYANT DOE DO [id number] 04/25/2013 15:41:00 04/25/2013 23:59: 59 [facility] Outpatient BRYANT DOE DO [id number] 04/25/2013 00:00:00 04/25/2013 23:59: 59 [facility] Outpatient BRYANT DOE DO [id number] 03/21/2013 13:47:00 Document Registration [id number] 01/17/2020 12:10:00 020 13:38:00 DIS Emergency REED ALMAGUER MD [facility] ER SOA;FEET MELINDALLI NG;CHF [id number] 08/01/2019 08:00:00 019 23:59:59 CLS Preadmit DELMAN , SHARATH B [facility] ENDO SCREENING/GASTRITIS [id number] 11/13/2017 10:58:00 018 13:30:00 DIS Emergency MERLIN DAVID, MARIJA Medrano [facility] ER FACIAL DROOP [id number] 10/29/2017 10:44:00 018 14:32:00 DIS Emergency MARILEE OSWALD APRN [facility] ER ABD PAIN,BACK PAIN [id number] 10/11/2017 17:57:00 018 20:34:00 DIS Emergency FABRICE NELSON [facility] ER "DOESN'T FEEL GOOD"/MIKHAIL ATHING ISSUES [id number] 09/15/2017 02:50:00 018 16:35:00 DIS Inpatient COCO LAZO MD [facility] ICU FLASH PULMONARY EDEMA,M AGLIGNANT HTN,ELEVATED [id number] 09/09/2017 20:12:00 018 14:40:00 DIS Inpatient MAURICIO OSEGUERA DO, [facility] ICU NSTEMI;CHF;HTN;NIDDM;AC SHIRLEY RESPIRATORY FAILURE [id number] 06/21/2013 11:02:00 17:10:00 DIS Outpatient DEV CUMMINGS MD [facility] SDC VENTRAL HERNIA [id number] 06/16/2013 09:12:00 23:59:59 CLS Outpatient DEV CUMMINGS MD [facility] PREOP VENTRAL HERNIA [id number] 05/18/2013 08:00:00 23:59:59 CLS Outpatient REED HILTON [facility] RAD LUQ PAIN AND SWELLING [id number] 04/27/2013 08:49:00 013 23:59:59 CLS Outpatient EMILIANO DAVID, DEV Pierre [facility] RAD RT FLANK PAIN [id number] 04/12/2013 13:20:00 16:07:00 DIS Emergency BRADY DAVID, BRANDON R [facility] ER ABD PAIN [id number] 02/07/2013 08:57:00 13:27:00 DIS Emergency TRIPP DAVID, REED Molina [facility] ER ABD PAIN [id number] 09/15/2017 01:59:00 Document Registration [id number] 01/17/2020 11:00:00 ACT Outpatient JAN RUBI JANElvis NIELSON [id number] 11/21/2019 09:40:00 Document Registration [id number] 11/07/2019 08:00:00 Document Registration [id number] 11/03/2019 09:40:00 Document Registration [id number] 10/10/2019 09:20:00 Document Registration [id number] 06/01/2019 10:20:00 Document Registration [id number] 05/30/2019 09:55:00 Document Registration [id number] 05/06/2019 09:00:00 Document Registration [id number] 04/07/2019 10:00:00 Document Registration [id number] 11/17/2018 09:40:00 Document Registration [id number] 10/20/2017 14:00:00 Document Registration
--- OUTSIDE RECORDS SUMMARY | 2020-01-17 14:38 | XMS REPORT | Continuity of Care Document ---
Author Author [facility] Organization [facility] Address Unknown Phone Unavailable Care Team Providers Care Reconstructive Surgeon Name Role Phone ALLIE LOCKETT Chiquita DO PP Insurance Providers Payer Name Policy Number Subscriber Name Relationship Self Pay Anjum Mota E Ii 01 Self / Same As Patient Advance Directives Directive Response Recor ded Date Advance Directives N 08/22 9:02am Organ Donor N 02/07/13 9 :02am Problems No Known Problems or Medical conditions. Social History History Response Recorde d Date/Time Alcohol Use Denies Use 0 02/07/13 9:02am Recreational Drug Use N 02/07/13 9:02am Recent Foreign Travel N 02/07/13 9:02am Recent Infectious Disease Exposure N 02/07/13 9:02am Hospitalization with Isolation Denies 02/07/13 9:02am Sexually Transmitted Disease N 02/07/13 9:02am HIV/AIDS N 02/07/13 9:02 am Allergies, Adverse Reactions, Alerts Allergen Type Severity Reaction Last Updated No Known Drug Allergies 02/07/13 Medications Medication Dose Units Route Sig Qty Days Tramadol HCl (Ultram) 50 Mg PO Q6H 20 Polyethylene Glycol (Miralax 17 Gm Packet) 17 Gm GT DAILY 30 Metronidazole (Flagyl 500 Mg) 1 Each PO BID 7 Ciprofloxacin (Cipro) 1 Tab PO BID 7 Metformin HCl (Metformin 500 Mg) 1 Each PO DAILY Gabapentin (Neurontin) 300 Mg PO BID [aldopine] 10 Mg PO DAILY Lisinopril (Zestril) 10 Mg PO DAILY Response Recorded Date/Time Status not known Unknown Results No Known Relevant Diagnostic Tests, Laboratory Data and/or Discharge Summary. Encounters Encounter Location Date/ Time Registered Emergency Room [facility] 02/07/13 8:57am
== END 2020-01-17 13:38 | disposition left against medical advice (07) ==
LOC: EDUNIT# 12:09 → ER 12:10
DX: I50.9 Heart failure, unspecified (principal)

== ENCOUNTER → 2020-02-03 | Outpatient (CLI) | payer MEDICARE, OTHER | LOC: CARD 08:40 | PROVIDERS: ATTEND Internal Medicine Interventional Cardiology | DX: I25.10 Atherosclerotic heart disease of native coronary artery without angina pectoris (principal); I42.9 Cardiomyopathy, unspecified; E78.5 Hyperlipidemia, unspecified; I10 Essential (primary) hypertension; I48.0 Paroxysmal atrial fibrillation; Z72.0 Tobacco use | CPT/HCPCS: 93306 ==

== ENCOUNTER → 2020-02-09 | Outpatient (CLI) | payer MEDICARE, OTHER ==
[~2020-02-09] VITALS: Ht 180 cm; Wt 91.0 kg
[~2020-02-09] MED LIST changes: +CATHETER FLUSH 10 ML SYR IV PRN; +REGADENOSON 0.4 MG/5 ML SYR (LEXISCAN) IV ONE
[2020-02-16 13:59] VITALS: BP 158/84
--- NOTE | 2020-02-16 13:59 | Cardiology Stress Test Report ---
Stress Test Report Type of NM Stress Test: Test Type: LEXISCAN 0.4MG/5ML Date of Procedure/Referring: Date of Procedure: Feb 09, 2020 PCP Ignacio Cid MD Admitting Physician Sharath Morelos MD Indications: CAD Baseline Heart Rate: 72 Baseline Blood Pressure: Blood Pressure Systolic: 158 Blood Pressure Diastolic: 84 Baseline EKG: Baseline EKG: Sinus rhythm Summary & Conclusion: Summary: The patient was brought to the stress lab after informed consent was taken. Stress test was performed according to the Lexiscan protocol. 0.4 mg of IV Lexiscan was given. Low-grade exercise was performed. Baseline EKG showed sinus rhythm at 72 bpm and blood pressure was 158/84 mmHg. Maximum heart rate of 88 bpm and blood pressure 175/88 mmHg. Patient did not have any chest pain, arrhythmias or ST segment changes during the stress test. 11.0 mCi of Myoview were given for rest imaging and 30.7 mCi of Myoview given for stress imaging. Transient ischemic dilatation score 1.11 , EF 38 percent. Inferior hypokinesis. Moderate size reversible inferior defect. SSS 11, SRS 6, SDS 4. Conclusion: Pharmacological stress test was negative for ischemia. Mildly reduce LV function with inferior hypokinesis. Evidence of inferior ischemia. Coronary angiography is recommended. Ignacio CID MD Feb 16, 2020 13:59
== END ==
LOC: CARD 02-02 07:53
PROVIDERS: ATTEND Internal Medicine Interventional Cardiology
DX: I25.10 Atherosclerotic heart disease of native coronary artery without angina pectoris (principal); I42.9 Cardiomyopathy, unspecified; E78.5 Hyperlipidemia, unspecified; I10 Essential (primary) hypertension; I48.0 Paroxysmal atrial fibrillation; Z72.0 Tobacco use
CPT/HCPCS: 78452; 93017; A9502

== ENCOUNTER 2020-02-23 07:44 | Day surgery (SDC) | payer MEDICARE, OTHER ==
[~2020-02-23] VITALS: Ht 180 cm; Wt 91.0 kg
[2020-02-23] VITALS (16 sets, daily range): BP systolic 122–178; BP diastolic 66–107
[~2020-02-23 07:44] MED LIST changes: -CATHETER FLUSH 10 ML SYR IV PRN; -REGADENOSON 0.4 MG/5 ML SYR (LEXISCAN) IV ONE
[2020-02-23] MEDS ORDERED: HEParin (CATH LAB) 2,000 ML IV ONE (07:52)
[2020-02-23] MEDS ORDERED: LIDOCAINE 1% INJ 20 ML 20 ML VIAL ONE (07:52)
[2020-02-23] MEDS ORDERED: NS IV 1000 ML 1,000 ML ONE (07:52)
[2020-02-23] MEDS: NS IV 1000 ML 1,000 ML IV SCH ×4 (08:03→21:29)
--- OUTSIDE RECORDS SUMMARY | 2020-02-23 08:16 | XMS REPORT ---
Author Author Erik Parada Doctor Organization [facility] Address Unknown Phone Unavailable Care Team Providers Care Developer Designer Name Role Phone Migration, Doctor Unavailable Unavailable PROBLEMS Type Condition ICD9-CM Code MCI39-FY Code Onset Dates Condition S tatus SNOMED Code Problem Chronic systolic congestive heart failure I50.22 Active 855517105 Problem Essential hypertension I10 Active 85845707 Problem Coronary artery disease invo lving [place] coronary artery of [place] heart without angina pectoris I25.10 Active 1641 160813485 Problem Substance abuse F19.10 Active 6621 4007 Problem Chronic hepatitis C without hepatic coma B18.2 Active 546368617 Problem History of pancreatitis Z87.19 Active 87588702927258 Problem Acute on chronic systolic heart failure I50.23 Active 053753681 Problem Depression F32.9 Active 662915456 Problem CHF (congestive heart failure) I50.9 Active 23948575 Problem Paroxysmal atrial fibrillation I48.0 Active 677039236 Problem Kidney stone on left side N20.0 Acti ve 08977181 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 Active 687121144 Problem Type 2 diabetes mellitus with other specified complication E11.69 Active 00976006 Problem Polyneuropathy associated with underlying disease G63 Active 304258846 ALLERGIES No Information ENCOUNTERS Encounter Location Date Diagnosis [id number], [place] [address] Feb, [address], [place] [address] Feb, CHF (congestive heart failure) I50.9 ; Swelling of both lower extremities M79.89 and Orthopnea R06.01 [address] [address] Jan, Essential hypertension I10 ; Coronary artery disease involving [place] coronary artery of [place] heart without angina pectoris I25.10 and Paroxysmal atrial fibrillation I48.0 [place] [id number] [place] [address] 09 Jan, 2020 Shortness of breath on exertion R06.02 and Acute on chronic systolic heart failure I50.23 [facility] [id number] [place] [address] 15 Nov, 2019 Essential hypertension I10 [facility] [address] [address] 14 Nov, 2019 Idiopathic acute pancreatitis without infection or necrosis K85.00 ; Type 2 diabetes mellitus with other specified complication E11.69 ; CHCF (current) use of insulin Z79.4 and Nicotine abuse Z72.0 [facility] [address] [address] Nov, Chronic hepatitis C without hepatic coma B18.2 [facility] [id number] [place] [address] Oct, Idiopathic acute pancreatitis without infection or necrosis K85.00 and Type 2 diabetes mellitus with diabetic polyneuropathy, without long-term current use of insulin E11.42 [facility] [id number] [place] [address] Oct, Epigastric abdominal pain R10.13 ; Type 2 diabetes mellitus with diabetic polyneuropathy, without long-term current use of insulin E11.42 and Acute pancreatitis without infection or necrosis, unspecified pancreatitis type K85.90 [facility] [id number] [place] [address], Epigastric abdominal pain R10.13 and History of pancreatitis Z87.19 [facility] [id number] [place] [address] Oct, Chronic hepatitis C without hepatic coma B18.2 and High risk medication use Z79.899 [facility] [id number] [place] [address] Sep, [facility] [id number] [place] [address] Aug, Chronic hepatitis C without hepatic coma B18.2 [facility] [id number] [place] [address] Aug, Type 2 diabetes mellitus with diabetic polyneuropathy, without long-term current use of insulin E11.42 and Flank pain R10.9 [facility] [address] [facility] [id number] [address] [place] [address] Jul, [facility] [id number] [place] [address] Jun, [facility] [id number] [place] [address] Jun, Chronic hepatitis C without hepatic coma B18.2 [facility] [id number] [place] [address] Jun, Chronic hepatitis C without hepatic coma B18.2 [facility] [id number] [place] [address] Jun, Chronic hepatitis C without hepatic coma B18.2 and Encounter for immunization Z23 [facility] [id number] [place] [address] May, Epigastric pain R10.13 [facility] [id number] [place] [address] May, CHF (congestive heart failure) I50.9 [facility] [id number] [place] [address] May, Epigastric pain R10.13 ; Type 2 diabetes mellitus with diabetic polyneuropathy, without long-term current use of insulin E11.42 ; Encounter for immunization Z23 and CHF (congestive heart failure) I50.9 [facility] [address] [facility] [id number] [address] [place] [address] May, History of pancreatitis Z87. 19 [facility] [id number] [place] [address] May, Epigastric pain R10.13 ; History of pancreatitis Z87.19 and Screening for colon cancer Z12.11 [place] [id number] [facility] [id number] [address] [place] [address] May, [facility] [id number] [place] [address] May, Type 2 diabetes mellitus with diabetic polyneuropathy, without long-term current use of insulin E11.42 [facility] [id number] [place] [address] May, [facility] [id number] [place] [address] Apr, Type 2 diabetes mellitus with diabetic polyneuropathy, without long-term current use of insulin E11.42 ; Chronic systolic congestive heart failure I50.22 ; Chronic systolic (congestive) heart failure I50.22 ; Essential hypertension I10 ; Encounter for smoking cessation counseling Z71.6 ; Chronic hepatitis C without hepatic coma B18.2 and Polyneuropathy associated with underlying disease G63 [place] [id number] [place] [address] Apr, Chronic hepatitis C without hepatic coma B18.2 [facility] [id number] [place] [address] Apr, Type 2 diabetes mellitus with diabetic polyneuropathy, without long-term current use of insulin E11.42 [facility] [id number] [place] [address] Mar, Essential hypertension I10 ; CHF (congestive heart failure) I50.9 ; Substance abuse F19.10 ; Hepatitis C antibody test positive R76.8 and Type 2 diabetes mellitus with diabetic polyneuropathy, without long-term current use of insulin E11.42 [place] [address] [id number] [place] [address] Mar, [place] [address] [id number] [place] [address] Jan, [place] [address] [id number] [place] [address] December, [place] [id number] [place] [address] 16 Nov, 2018 Chronic hepatitis C without hepatic coma B18.2 [place] [address] [address] Nov, Hepatitis C antibody test po sitive R76.8 [place] [address] [address] Nov, Hepatitis C antibody test po sitive R76.8 [place] [address] [address] Oct, Substance abuse F19.10 [place] [address] [address] Sep, Chronic systolic (congestive ) heart failure I50.22 [place] [address] [address] Sep, CHF (congestive heart failur e) I50.9 [place] [address] [address] Sep, Chronic systolic congestive heart failure I50.22 ; Type 2 diabetes mellitus with diabetic polyneuropathy, without long-term current use of insulin E11.42 ; Substance abuse F19.10 and Depression F32.9 [place] [address] [address] Jan, Type 2 diabetes mellitus wit h diabetic polyneuropathy, without long-term current use of insulin E11.42 and Essential hypertension I10 [facility] [address] [address] Nov, [facility] [address] [address] Nov, Facial droop R29.810 and Cer ebrovascular accident (CVA), unspecified mechanism I63.9 [facility] [address] [address] 22 Oct, 2017 Acute abdominal pain R10.9 a nd History of acute pancreatitis Z87.19 [facility] [address] [id number] [address] [place] [id number] 15 Oct, 2017 [facility] [address] [id number] [address] [place] [phone] 13 Oct, 2017 Coronary artery disease invo lving [place] coronary artery of [place] heart without angina pectoris I25.10 ; Chronic systolic congestive heart failure I50.22 and Type 2 diabetes mellitus with diabetic polyneuropathy, without long- term current use of insulin E11.42 [facility] [address] [id number] [address] [place] [address] 20 Sep, 2017 Type 2 diabetes mellitus wit h diabetic polyneuropathy, without long-term current use of insulin E11.42 ; Persistent atrial fibrillation I48.1 ; Essential hypertension I10 and Chronic kidney disease, unspecified CKD stage N18.9 [facility] [address] [id number] [address] [place] [phone] 13 Sep, 2017 [facility] [address] [id number] [address] [place] [phone] Sep, [facility] [address] [facility] [id number] [address] [place] [phone] 14 Nov, 2014 [facility] [address] [id number] [address] [place] [phone] Nov, [facility] [address] [id number] [address] [place] [phone] 13 Oct, 2013 [facility] [address] [id number] [address] [place] [phone] Oct, [facility] [address] [facility] [id number] [address] [place] [phone] 17 Sep, 2013 [facility] [address] [facility] [id number] [address] [place] [phone] Sep, [facility] [address] [id number] [address] [place] [address], [place] [address] Aug, [facility] [address] [id number] [address] [place] [address], [place] [address] Aug, [facility] [address] [id number] [address] [place] [address], [place] [address] Jun, [facility] [address] [id number] [address] [place] [address], [place] [address] Jun, [facility] [address] [id number] [address] [place] [address], [place] [address] May, [facility] [address] [id number] [address] [place] [address], [place] [address] May, [facility] [address] [id number] [address] [place] [address], [place] [address] May, [facility] [address] [id number] [address] [place] [address], [place] [address] May, [facility] [address] [id number] [address] [place] [address], [place] [address] May, [facility] [address] [id number] [address] [place] [address], [place] [address] May, [facility] [address] [id number] [address] [place] [address], [place] [address] 23 Apr, 2013 [facility] [address] [id number] [address] [place] [address], [place] [address] 16 Apr, 2013 [facility] [address] [id number] [address] [place] [phone] 12 Apr, 2013 [facility] [address] [id number] [address] [place] [phone] 15 Mar, 2013 [facility] [address] [id number] [address] [place] [address], [place] [address] 14 Mar, 2013 [facility] [address] [id number] [address] [place] [phone] Mar, IMMUNIZATIONS No Known Immunizations SOCIAL HISTORY Never Assessed REASON FOR VISIT PLAN OF CARE VITAL SIGNS Height 71 in 2013-05-13 Weight 182.7 lbs 2013-05-13 Temperature 98 degrees Fahrenheit 2013-05-13 Heart Rate 87 bpm 2013-05-13 Respiratory Rate 18 2013-05-13 Blood pressure systolic 102 mmHg 2013-05-13 Blood pressure diastolic 68 mmHg 2013-05-13 MEDICATIONS Unknown Medications RESULTS No Results PROCEDURES Procedure Date Ordered Result Body Site ECHO EXAM OF ABDOMEN May 13, 2013 INSTRUCTIONS MEDICATIONS ADMINISTERED No Known Medications MEDICAL (GENERAL) HISTORY Type Description Date Medical History CHF Medical History [place] Medical History HTN Medical History Diabetes Medical History Pneumonia Medical History Neuropathy Medical History Carter Palsy Medical History Chronic Hep C Medical History hx of kidney stones lt side Medical History hx of pancreatitis Surgical History 2 Heart caths, stent placement 09/14/17& Surgical History hernia repair Hospitalization History [facility] 09/17/17-09/21/17
--- OUTSIDE RECORDS SUMMARY | 2020-02-23 08:16 | XMS REPORT ---
Author Author Erik Parada Doctor Organization [facility] Address Unknown Phone Unavailable Care Team Providers Care Scheduling Administrator Name Role Phone Migration, Doctor Unavailable Unavailable PROBLEMS Type Condition ICD9-CM Code [id number] Code Onset Dates Condition S tatus SNOMED Code Problem Chronic systolic congestive heart failure I50.22 Active 691954387 Problem Essential hypertension I10 Active 61946156 Problem Coronary artery disease invo lving little river coronary artery of little river heart without angina pectoris I25.10 Active 1641 969514645 Problem Substance abuse F19.10 Active 6621 4007 Problem Chronic hepatitis C without hepatic coma B18.2 Active 151393060 Problem History of pancreatitis Z87.19 Active [id number] Problem Acute on chronic systolic heart failure I50.23 Active 550916334 Problem Depression F32.9 Active 522679159 Problem CHF (congestive heart failure) I50.9 Active 65819061 Problem Paroxysmal atrial fibrillation I48.0 Active 868219252 Problem Kidney stone on left side N20.0 Acti ve 31775364 Problem 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 Active 907318299 Problem Type 2 diabetes mellitus with other specified complication E11.69 Active 34759463 Problem Polyneuropathy associated with underlying disease G63 Active 412091114 ALLERGIES No Information ENCOUNTERS Encounter Location Date Diagnosis [address] [address] Feb, [address] [address] Feb, CHF (congestive heart failure) I50.9 ; Swelling of both lower extremities M79.89 and Orthopnea R06.01 [address] [address] Jan, Essential hypertension I10 ; Coronary artery disease involving little river coronary artery of little river heart without angina pectoris I25.10 and Paroxysmal atrial fibrillation I48.0 [place] [id number] [place] [address] 09 Jan, 2020 Shortness of breath on exertion R06.02 and Acute on chronic systolic heart failure I50.23 [facility] [id number] [place] [address] 15 Nov, 2019 Essential hypertension I10 [facility] [address] [address] 14 Nov, 2019 Idiopathic acute pancreatitis without infection or necrosis K85.00 ; Type 2 diabetes mellitus with other specified complication E11.69 ; shelter (current) use of insulin Z79.4 and Nicotine abuse Z72.0 [facility] [address] [address] Nov, Chronic hepatitis C without hepatic coma B18.2 [facility] [id number] [place] [address] Oct, Idiopathic acute pancreatitis without infection or necrosis K85.00 and Type 2 diabetes mellitus with diabetic polyneuropathy, without long-term current use of insulin E11.42 [facility] [id number] [place] [address] Oct, Epigastric abdominal pain R10.13 ; Type 2 diabetes mellitus with diabetic polyneuropathy, without long-term current use of insulin E11.42 and Acute pancreatitis without infection or necrosis, unspecified pancreatitis type K85.90 [facility] [id number] [place] [address], Epigastric abdominal pain R10.13 and History of pancreatitis Z87.19 [facility] [id number] [place] [address] Oct, Chronic hepatitis C without hepatic coma B18.2 and High risk medication use Z79.899 [facility] [id number] [place] [address] Sep, [facility] [id number] [place] [address] Aug, Chronic hepatitis C without hepatic coma B18.2 [facility] [id number] [place] [address] Aug, Type 2 diabetes mellitus with diabetic polyneuropathy, without long-term current use of insulin E11.42 and Flank pain R10.9 [facility] [address] [facility] [id number] [address] [place] [id number] Jul, [facility] [id number] [place] [address] Jun, [facility] [id number] [place] [address] Jun, Chronic hepatitis C without hepatic coma B18.2 [facility] [id number] [place] [address] Jun, Chronic hepatitis C without hepatic coma B18.2 [facility] [id number] [place] [address] Jun, Chronic hepatitis C without hepatic coma B18.2 and Encounter for immunization Z23 [facility] [id number] [place] [address] May, Epigastric pain R10.13 [facility] [id number] [place] [address] May, CHF (congestive heart failure) I50.9 [facility] [id number] [place] [address] May, Epigastric pain R10.13 ; Type 2 diabetes mellitus with diabetic polyneuropathy, without long-term current use of insulin E11.42 ; Encounter for immunization Z23 and CHF (congestive heart failure) I50.9 [facility] [address] [facility] [id number] [address] [place] [address] May, History of pancreatitis Z87. 19 [facility] [id number] [place] [address] May, Epigastric pain R10.13 ; History of pancreatitis Z87.19 and Screening for colon cancer Z12.11 [place] [id number] [facility] [id number] [address] [place] [address] May, [facility] [id number] [place] [address] May, Type 2 diabetes mellitus with diabetic polyneuropathy, without long-term current use of insulin E11.42 [facility] [id number] [place] [address] May, [facility] [id number] [place] [address] Apr, Type 2 diabetes mellitus with diabetic polyneuropathy, without long-term current use of insulin E11.42 ; Chronic systolic congestive heart failure I50.22 ; Chronic systolic (congestive) heart failure I50.22 ; Essential hypertension I10 ; Encounter for smoking cessation counseling Z71.6 ; Chronic hepatitis C without hepatic coma B18.2 and Polyneuropathy associated with underlying disease G63 [place] [address] [id number] [place] [address] Apr, Chronic hepatitis C without hepatic coma B18.2 [facility] [id number] [place] [address] Apr, Type 2 diabetes mellitus with diabetic polyneuropathy, without long-term current use of insulin E11.42 [facility] [id number] [place] [address] Mar, Essential hypertension I10 ; CHF (congestive heart failure) I50.9 ; Substance abuse F19.10 ; Hepatitis C antibody test positive R76.8 and Type 2 diabetes mellitus with diabetic polyneuropathy, without long-term current use of insulin E11.42 [place] [address] [id number] [place] [address] Mar, [place] [address] [id number] [place] [address] Jan, [place] [address] [place] [id number] [place] [address] December, [place] [address] [place] [address] 16 Nov, 2018 Chronic hepatitis C without hepatic coma B18.2 [place] [address] [address] Nov, Hepatitis C antibody test po sitive R76.8 [place] [address] [address] Nov, Hepatitis C antibody test po sitive R76.8 [place] [address] [address] Oct, Substance abuse F19.10 [place] [address] [address] Sep, Chronic systolic (congestive ) heart failure I50.22 [place] [address] [address] Sep, CHF (congestive heart failur e) I50.9 [place] [address] [address] Sep, Chronic systolic congestive heart failure I50.22 ; Type 2 diabetes mellitus with diabetic polyneuropathy, without long-term current use of insulin E11.42 ; Substance abuse F19.10 and Depression F32.9 [place] [address] [address] Jan, Type 2 diabetes mellitus wit h diabetic polyneuropathy, without long-term current use of insulin E11.42 and Essential hypertension I10 [facility] [address] [address] Nov, [facility] [address] [address] Nov, Facial droop R29.810 and Cer ebrovascular accident (CVA), unspecified mechanism I63.9 [facility] [address] [address] 22 Oct, 2017 Acute abdominal pain R10.9 a nd History of acute pancreatitis Z87.19 [facility] [address] [id number] [address] [place] [address] 15 Oct, 2017 [facility] [address] [id number] [address] [place] [address] 13 Oct, 2017 Coronary artery disease invo lving little river coronary artery of [place] river heart without angina pectoris I25.10 ; Chronic systolic congestive heart failure I50.22 and Type 2 diabetes mellitus with diabetic polyneuropathy, without long- term current use of insulin E11.42 [facility] [address] [id number] [address] [place] [address] 20 Sep, 2017 Type 2 diabetes mellitus wit h diabetic polyneuropathy, without long-term current use of insulin E11.42 ; Persistent atrial fibrillation I48.1 ; Essential hypertension I10 and Chronic kidney disease, unspecified CKD stage N18.9 [facility] [address] [id number] [address] [place] [id number] 13 Sep, 2017 [facility] [address] [id number] [address] [place] [id number] Sep, [facility] [address] [facility] [id number] [address] [place] [address] 14 Nov, 2014 [facility] [address] [id number] [address] [place] [address] Nov, [facility] [address] [id number] [address] [place] [id number] 13 Oct, 2013 [facility] [address] [id number] [address] [place] [id number] Oct, [facility] [address] [facility] [id number] [address] [place] [phone] 17 Sep, 2013 [facility] [address] [facility] [id number] [address] [place] [phone] Sep, [facility] [address] [id number] [address] [place] [address], [place] [address] Aug, [facility] [address] [id number] [address] [place] [address], [place] [address] Aug, [facility] [address] [id number] [address] [place] [address], [place] [address] Jun, [facility] [address] [id number] [address] [place] [address], [place] [address] Jun, [facility] [address] [id number] [address] [place] [address], [place] [address] May, [facility] [address] [id number] [address] [place] [address], [place] [address] May, [facility] [address] [id number] [address] [place] [address], [place] [address] May, [facility] [address] [id number] [address] [place] [address], [place] [address] May, [facility] [address] [id number] [address] [place] [address], [place] [address] May, [facility] [address] [id number] [address] [place] [address], [place] [address] May, [facility] [address] [id number] [address] [place] [address], [place] [address] 23 Apr, 2013 [facility] [address] [id number] [address] [place] [address], [place] [address] 16 Apr, 2013 [facility] [address] [id number] [address] [place] [phone] 12 Apr, 2013 [facility] [address] [id number] [address] [place] [id number] 15 Mar, 2013 [facility] [address] [id number] [address] [place] [address], [place] [address] 14 Mar, 2013 [facility] [address] [id number] [address] [place] [id number] Mar, IMMUNIZATIONS No Known Immunizations SOCIAL HISTORY Never Assessed REASON FOR VISIT PLAN OF CARE VITAL SIGNS MEDICATIONS Unknown Medications RESULTS No Results PROCEDURES No Known procedures INSTRUCTIONS MEDICATIONS ADMINISTERED No Known Medications MEDICAL (GENERAL) HISTORY Type Description Date Medical History CHF Medical History PA Medical History HTN Medical History Diabetes Medical History Pneumonia Medical History Neuropathy Medical History Carter Palsy Medical History Chronic Hep C Medical History hx of kidney stones lt side Medical History hx of pancreatitis Surgical History 2 Heart caths, stent placement 09/14/17& Surgical History hernia repair Hospitalization History [facility] 09/17/17-09/21/17
--- OUTSIDE RECORDS SUMMARY | 2020-02-23 08:16 | XMS REPORT ---
Author Author Erik Parada Doctor Organization [facility] Address Unknown Phone Unavailable Care Team Providers Care Fisher Seal Name Role Phone Migration, Doctor Unavailable Unavailable PROBLEMS Type Condition ICD9-CM Code OBF47-HO Code Onset Dates Condition S tatus SNOMED Code Problem Chronic systolic congestive heart failure I50.22 Active 002044221 Problem Essential hypertension I10 Active 25688368 Problem Coronary artery disease invo lving [place] coronary artery of [place] heart without angina pectoris I25.10 Active 1641 [id number] Problem Substance abuse F19.10 Active 6621 4007 Problem Chronic hepatitis C without hepatic coma B18.2 Active 953220754 Problem History of pancreatitis Z87.19 Active [id number] Problem Acute on chronic systolic heart failure I50.23 Active 329906330 Problem Depression F32.9 Active 765674757 Problem CHF (congestive heart failure) I50.9 Active 92783537 Problem Paroxysmal atrial fibrillation I48.0 Active 136549185 Problem Kidney stone on left side N20.0 Acti ve 66560596 Problem salvage determiner (current) use of insulin Z79.4 Active 518017871 Problem Type 2 diabetes mellitus with other specified complication E11.69 Active 08695636 Problem Polyneuropathy associated with underlying disease G63 Active 190086833 ALLERGIES No Information ENCOUNTERS Encounter Location Date Diagnosis [address], [place] [address] Feb, [address] [address] Feb, CHF (congestive heart failure) I50.9 ; Swelling of both lower extremities M79.89 and Orthopnea R06.[address] [address] Jan, Essential hypertension I10 ; Coronary artery disease involving [place] coronary artery of [place] heart without angina pectoris I25.10 and Paroxysmal atrial fibrillation I48.0 [place] [id number] [place] [address] 09 Jan, 2020 Shortness of breath on exertion R06.02 and Acute on chronic systolic heart failure I50.23 [facility] [id number] [place] [address] 15 Nov, 2019 Essential hypertension I10 [facility] [address] [address] 14 Nov, 2019 Idiopathic acute pancreatitis without infection or necrosis K85.00 ; Type 2 diabetes mellitus with other specified complication E11.69 ; custodial (current) use of insulin Z79.4 and Nicotine abuse Z72.0 [facility] [address] [address] Nov, Chronic hepatitis C without hepatic coma B18.2 [facility] [id number] [place] [address] Oct, Idiopathic acute pancreatitis without infection or necrosis K85.00 and Type 2 diabetes mellitus with diabetic polyneuropathy, without long-term current use of insulin E11.42 [facility] [id number] [place] [address] Oct, Epigastric abdominal pain R10.13 ; Type 2 diabetes mellitus with diabetic polyneuropathy, without long-term current use of insulin E11.42 and Acute pancreatitis without infection or necrosis, unspecified pancreatitis type K85.90 [facility] [id number] [place] [address], Epigastric abdominal pain R10.13 and History of pancreatitis Z87.19 [facility] [id number] [place] [address] Oct, Chronic hepatitis C without hepatic coma B18.2 and High risk medication use Z79.899 [facility] [id number] [place] [phone] Sep, [facility] [id number] [place] [phone] Aug, Chronic hepatitis C without hepatic coma B18.2 [facility] [id number] [place] [address] Aug, Type 2 diabetes mellitus with diabetic polyneuropathy, without long-term current use of insulin E11.42 and Flank pain R10.9 [facility] [address] [facility] [id number] [address] [place] [phone] Jul, [facility] [id number] [place] [address] Jun, [facility] [id number] [place] [phone] Jun, Chronic hepatitis C without hepatic coma B18.2 [facility] [id number] [place] [address] Jun, Chronic hepatitis C without hepatic coma B18.2 [facility] [id number] [place] [phone] Jun, Chronic hepatitis C without hepatic coma B18.2 and Encounter for immunization Z23 [facility] [id number] [place] [address] May, Epigastric pain R10.13 [facility] [id number] [place] [address] May, CHF (congestive heart failure) I50.9 [facility] [id number] [place] [address] May, Epigastric pain R10.13 ; Type 2 diabetes mellitus with diabetic polyneuropathy, without long-term current use of insulin E11.42 ; Encounter for immunization Z23 and CHF (congestive heart failure) I50.9 [facility] [address] [facility] [id number] [address] [place] [address] May, History of pancreatitis Z87. 19 [facility] [id number] [place] [address] May, Epigastric pain R10.13 ; History of pancreatitis Z87.19 and Screening for colon cancer Z12.11 [place] [address] [facility] [id number] [address] [place] [phone] May, [facility] [id number] [place] [address] May, Type 2 diabetes mellitus with diabetic polyneuropathy, without long-term current use of insulin E11.42 [facility] [id number] [place] [address] May, [facility] [id number] [place] [address] Apr, Type 2 diabetes mellitus with diabetic polyneuropathy, without long-term current use of insulin E11.42 ; Chronic systolic congestive heart failure I50.22 ; Chronic systolic (congestive) heart failure I50.22 ; Essential hypertension I10 ; Encounter for smoking cessation counseling Z71.6 ; Chronic hepatitis C without hepatic coma B18.2 and Polyneuropathy associated with underlying disease G63 [place] [address] [place] [id number] [place] [phone] Apr, Chronic hepatitis C without hepatic coma B18.2 [facility] [id number] [place] [address] Apr, Type 2 diabetes mellitus with diabetic polyneuropathy, without long-term current use of insulin E11.42 [facility] [id number] [place] [address] Mar, Essential hypertension I10 ; CHF (congestive heart failure) I50.9 ; Substance abuse F19.10 ; Hepatitis C antibody test positive R76.8 and Type 2 diabetes mellitus with diabetic polyneuropathy, without long-term current use of insulin E11.42 [place] [address] [id number] [place] [phone] Mar, [place] [address] [place] [id number] [place] [phone] Jan, [place] [address] [place] [id number] [place] [phone] December, [place] [address] [place] [phone] 16 Nov, 2018 Chronic hepatitis C without hepatic coma B18.2 [place] [address] [address] Nov, Hepatitis C antibody test po sitive R76.8 [place] [address] [address] Nov, Hepatitis C antibody test po sitive R76.8 [place] [address] [address] Oct, Substance abuse F19.10 [place] [address] [address] Sep, Chronic systolic (congestive ) heart failure I50.22 [place] [address] [address] Sep, CHF (congestive heart failur e) I50.9 [place] [address] [address] Sep, Chronic systolic congestive heart failure I50.22 ; Type 2 diabetes mellitus with diabetic polyneuropathy, without long-term current use of insulin E11.42 ; Substance abuse F19.10 and Depression F32.9 [place] [address] [address] Jan, Type 2 diabetes mellitus wit h diabetic polyneuropathy, without long-term current use of insulin E11.42 and Essential hypertension I10 [facility] [address] [address] Nov, [facility] [address] [address] Nov, Facial droop R29.810 and Cer ebrovascular accident (CVA), unspecified mechanism I63.9 [facility] [address] [phone] 22 Oct, 2017 Acute abdominal pain R10.9 a nd History of acute pancreatitis Z87.19 [facility] [address] [id number] [address] [place] [phone] 15 Oct, 2017 [facility] [address] [id number] [address] [place] [phone] 13 Oct, 2017 Coronary artery disease invo lving [place] coronary artery of [place] heart without angina pectoris I25.10 ; Chronic systolic congestive heart failure I50.22 and Type 2 diabetes mellitus with diabetic polyneuropathy, without long- term current use of insulin E11.42 [facility] [address] [id number] [address] [place] [phone] 20 Sep, 2017 Type 2 diabetes mellitus wit h diabetic polyneuropathy, without long-term current use of insulin E11.42 ; Persistent atrial fibrillation I48.1 ; Essential hypertension I10 and Chronic kidney disease, unspecified CKD stage N18.9 [facility] [address] [id number] [address] [place] [phone] 13 Sep, 2017 [facility] [address] [id number] [address] [place] [phone] Sep, [facility] [address] [facility] [id number] [address] [place] [phone] 14 Nov, 2014 [facility] [address] [id number] [address] [place] [phone] Nov, [facility] [address] [id number] [address] [place] [phone] 13 Oct, 2013 [facility] [address] [id number] [address] [place] [phone] Oct, [facility] [address] [facility] [id number] [address] [place] [phone] 17 Sep, 2013 [facility] [address] [facility] [id number] [address] [place] [phone] Sep, [facility] [address] [id number] [address] [place] [address], [place] [address] Aug, [facility] [address] [id number] [address] [place] [address], [place] [address] Aug, [facility] [address] [id number] [address] [place] [address], [place] [address] Jun, [facility] [address] [id number] [address] [place] [address], [place] [address] Jun, [facility] [address] [id number] [address] [place] [address], [place] [address] May, [facility] [address] [id number] [address] [place] [address], [place] [address] May, [facility] [address] [id number] [address] [place] [address], [place] [address] May, [facility] [address] [id number] [address] [place] [address], [place] [address] May, [facility] [address] [id number] [address] [place] [address], [place] [address] May, [facility] [address] [id number] [address] [place] [address], [place] [address] May, [facility] [address] [id number] [address] [place] [address], [place] [address] 23 Apr, 2013 [facility] [address] [id number] [address] [place] [address], [place] [address] 16 Apr, 2013 [facility] [address] [id number] [address] [place] [phone] 12 Apr, 2013 [facility] [address] [id number] [address] [place] [phone] 15 Mar, 2013 [facility] [address] [id number] [address] [place] [address], [place] [address] 14 Mar, 2013 [facility] [address] [id number] [address] [place] [phone] Mar, IMMUNIZATIONS No Known Immunizations SOCIAL HISTORY Never Assessed REASON FOR VISIT PLAN OF CARE VITAL SIGNS MEDICATIONS Unknown Medications RESULTS No Results PROCEDURES No Known procedures INSTRUCTIONS MEDICATIONS ADMINISTERED No Known Medications MEDICAL (GENERAL) HISTORY Type Description Date Medical History CHF Medical History [place] Medical History HTN Medical History Diabetes Medical History Pneumonia Medical History Neuropathy Medical History Carter Palsy Medical History Chronic Hep C Medical History hx of kidney stones lt side Medical History hx of pancreatitis Surgical History 2 Heart caths, stent placement 09/14/17& Surgical History hernia repair Hospitalization History [facility] 09/17/17-09/21/17
--- OUTSIDE RECORDS SUMMARY | 2020-02-23 08:17 | XMS REPORT | Continuity of Care Document ---
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 09/10/2017 OSEGUERA DO, MAURICIO Ot E11.40 TYPE [...] UNSPECIFIED 09/10/2017 OSEGUERA DO, MAURICIO Ot Z79.84 CRANE MECHANIC (CURRENT) USE OF ORAL HYPOGLYC 09/11/2017 OSEGUERA DO, MAURICIO Ot 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 09/11/2017 OESGUERA DO, MAURICIO Ot E11.40 TYPE 2 DIABETES [...] UNSPECIFIED 09/11/2017 OSEGUERA DO, MAURICIO Ot Z79.84 CRANE MECHANIC (CURRENT) USE OF ORAL HYPOGLYC 09/11/2017 OSEGUERA DO, MAURICIO Ot 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 09/11/2017 OSEGUERA DO, MAURICIO Ot E11.40 TYPE [...] UNSPECIFIED 09/11/2017 OSEGUERA DO, MAURICIO Ot Z79.84 CRANE MECHANIC (CURRENT) USE OF ORAL HYPOGLYC 09/12/2017 OSEGUERA DO, MAURICIO Ot 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 09/12/2017 OSEGUERA DO, MAURICIO Ot E11.40 TYPE [...] UNSPECIFIED 09/12/2017 OSEGUERA DO, MAURICIO Ot Z79.84 SNF (CURRENT) USE OF ORAL HYPOGLYC 09/13/2017 OSEGUERA DO, MAURICIO Ot 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 09/13/2017 OSEGUERA DO, MAURICIO Ot E11.40 TYPE [...] UNSPECIFIED 09/13/2017 OSEGUERA DO, MAURICIO Ot Z79.84 SNF (CURRENT) USE OF ORAL HYPOGLYC 09/13/2017 OSEGUERA DO, MAURICIO Ot 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 09/13/2017 OSEGUERA DO, MAURICIO Ot E11.40 TYPE [...] UNSPECIFIED 09/13/2017 MAURICIO OSEGUERA DO Ot Z79.84 SNF (CURRENT) USE OF ORAL HYPOGLYC 09/13/2017 GENI OSEGUERA DOI Ot 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 09/13/2017 GENI OSEGUERA DOI Ot E11.40 TYPE [...] MAURICIO Ot I25.10 ATHSCL HEART DISEASE OF [place] CORONARY 09/13/2017 ANA ROSA LOWE MAURICIO Ot [...] FLU DUE TO UNIDENTIFIED INFLUENZA VIRUS 09/13/2017 GNEI OSEGUERA DOI Ot J44.1 CHRONIC OBSTRUCTIVE PULMONARY DISEASE W 09/13/2017 GENI OSEGUERA DOI Ot J96.90 RESPIRATORY FAILURE, UNSP, UNSP W HYPOXI 09/13/2017 GENI OSEGUERA DOI Ot J98.11 ATELECTASIS 09/13/2017 GENI OSEGUERA DOI Ot N17.9 ACUTE KIDNEY FAILURE, UNSPECIFIED 09/13/2017 GENI OSEGUERA DOI Ot N18.9 CHRONIC KIDNEY DISEASE, UNSPECIFIED 09/13/2017 ANA ROSA LOWE MAURICIO Ot T38.0X 5A ADVERSE EFFECT OF GLUCOCORT/SYNTH ANALOG 09/13/2017 ANA ROSA LOWE MAURICIO Ot Z79.84 SNF (CURRENT) USE OF ORAL HYPOGLYC 09/15/2017 EMILIANO DAVID, DEV Pierre Ot 789.09 ABDOMINAL PAIN, OTHER SPECIFIED SITE 09/15/2017 REED HILTON Ot 789.02 ABDOMINAL PAIN, LEFT UPPER QUADRANT 09/15/2017 DEV CMUMINGS MD Ot 553.21 INCISIONAL HERNIA 09/15/2017 DEV CUMMINGS MD Ot V72.63 PRE-PROCEDURAL LABORATORY EXAMINATION 09/15/2017 DEV CUMMINGS MD Ot V72.81 FFID-LPV-QOMCHDPDW CARDIOVASCULAR 09/15/2017 DEV CUMMINGS MD Ot V74.8 SCREEN-BACTERIAL DIS NEC 09/15/2017 DEV CUMMINGS MD Ot 789.09 ABDOMINAL PAIN, OTHER SPECIFIED SITE 09/15/2017 REED HILTON Ot 789.02 ABDOMINAL PAIN, LEFT UPPER QUADRANT 09/15/2017 DEV CUMMINGS MD Ot 553.21 INCISIONAL HERNIA 09/15/2017 DEV CUMMINGS MD Ot V72.63 PRE-PROCEDURAL LABORATORY EXAMINATION 09/15/2017 DEV CUMMINGS MD Ot V72.81 NWGY-IBI-MRVNDDEOQ CARDIOVASCULAR 09/15/2017 DEV CUMMINGS MD Ot V74.8 SCREEN-BACTERIAL DIS NEC 09/17/2017 COCO LAZO MD Ot E11. 9 TYPE 2 DIABETES MELLITUS WITHOUT COMPLIC 09/17/2017 COCO LAOZ MD Ot F17.210 NICOTINE DEPENDENCE, CIGARETTES, UNCOMPL [...] Ot I25. 10 ATHSCL HEART DISEASE OF [place] CORONARY 09/17/2017 COCO LAZO MD Ot I48. [...] Ot I25. 10 ATHSCL HEART DISEASE OF [place] CORONARY 09/17/2017 COCO LAZO MD Ot I48. [...] Ot I25. 10 ATHSCL HEART DISEASE OF [place] CORONARY 09/17/2017 COCO LAZO MD Ot I48. [...] Ot I25. 10 ATHSCL HEART DISEASE OF [place] CORONARY 09/17/2017 COCO LAZO MD, Ot I25. 82 CHRONIC TOTAL [...] EXAMINATION 09/21/2017 DEV CUMMINGS MD Ot V72.81 YZTU-UGM-SGGZMHHDX CARDIOVASCULAR 09/21/2017 DEV CUMMINGS MD Ot V74.8 SCREEN-BACTERIAL DIS NEC 10/11/2017 DEV CUMMINGS MD Ot 789.09 ABDOMINAL PAIN, OTHER SPECIFIED SITE 10/11/2017 REED HILTON Ot 789.02 ABDOMINAL PAIN, LEFT UPPER QUADRANT 10/11/2017 DEV CUMMINGS MD Ot 553.21 INCISIONAL HERNIA 10/11/2017 DEV CUMMINGS MD Ot V72.63 PRE-PROCEDURAL LABORATORY EXAMINATION 10/11/2017 DEV CUMMINGS MD Ot V72.81 HIUJ-AFY-JNBXKLLRP CARDIOVASCULAR 10/11/2017 DEV CUMMINGS MD Ot V74.8 SCREEN-BACTERIAL DIS NEC 10/11/2017 OMAR, FABRICE COOK RAILROAD Ot E11.40 TYPE 2 DIABETES MELLITUS WITH DIABETIC N 10/11/2017 OMAR, FABRICE COOK RAILROAD Ot E78.00 PURE HYPERCHOLESTEROLEMIA, UNSPECIFIED 10/11/2017 OMAR, FABRICE COOK RAILROAD Ot F12.90 CANNABIS USE, UNSPECIFIED, UNCOMPLICATED 10/11/2017 OMAR, FABRICE COOK RAILROAD Ot F17.210 NICOTINE DEPENDENCE, CIGARETTES, UNCOMPL 10/11/2017 OMAR, FABRICE COOK RAILROAD Ot F32.9 MAJOR DEPRESSIVE DISORDER, SINGLE EPISOD 10/11/2017 OMAR, FABRICE COOK RAILROAD Ot F41.9 ANXIETY DISORDER, UNSPECIFIED 10/11/2017 OMAR, FABRICE COOK RAILROAD Ot I11.0 HYPERTENSIVE HEART DISEASE WITH HEART FA 10/11/2017 OMAR, FABRICE COOK RAILROAD Ot I25.2 OLD MYOCARDIAL INFARCTION 10/11/2017 OMAR, FABRICE COOK RAILROAD Ot I50.9 HEART FAILURE, UNSPECIFIED 10/11/2017 OMAR, FABRICE COOK RAILROAD Ot N39.0 URINARY TRACT INFECTION, SITE NOT SPECIF 10/11/2017 OMAR, FABRICE COOK RAILROAD Ot R53.1 WEAKNESS 10/11/2017 OMAR, FABRICE COOK RAILROAD Ot Z79.52 SNF (CURRENT) USE OF SYSTEMIC STER 10/11/2017 OMAR, FABRICE COOK RAILROAD Ot Z79.82 CRANE MECHANIC (CURRENT) USE OF ASPIRIN 10/11/2017 OMAR, FABRICE COOK RAILROAD Ot Z79.84 CRANE MECHANIC (CURRENT) USE OF ORAL HYPOGLYC 10/11/2017 EMILIANO DAVID, DEV Pierre Ot 789.09 ABDOMINAL PAIN, OTHER SPECIFIED SITE 10/11/2017 REED HILTON Ot 789.02 ABDOMINAL PAIN, LEFT UPPER QUADRANT 10/11/2017 EMILIANO DAVID, DEV Pierre Ot 553.21 INCISIONAL HERNIA 10/11/2017 DEV CUMMINGS MD Ot V72.63 PRE-PROCEDURAL LABORATORY EXAMINATION 10/11/2017 DEV CUMMINGS MD Ot V72.81 FZZF-TYL-TBQDEYXXJ CARDIOVASCULAR 10/11/2017 EMILIANO DAVID, DEV Pierre Ot V74.8 SCREEN-BACTERIAL DIS NEC 10/13/2017 OMAR, FABRICE COOK RAILROAD Ot E11.40 TYPE 2 DIABETES MELLITUS WITH DIABETIC N 10/13/2017 OMAR, FABRICE COOK RAILROAD Ot E78.00 PURE HYPERCHOLESTEROLEMIA, UNSPECIFIED 10/13/2017 MOAR, FABRICE COOK RAILROAD Ot F12.90 CANNABIS USE, UNSPECIFIED, UNCOMPLICATED 10/13/2017 OMAR, FABRICE COOK RAILROAD Ot F17.210 NICOTINE DEPENDENCE, CIGARETTES, UNCOMPL 10/13/2017 OMAR, FABRICE COOK RAILROAD Ot F32.9 MAJOR DEPRESSIVE DISORDER, SINGLE EPISOD 10/13/2017 OMAR, FABRICE COOK RAILROAD Ot F41.9 ANXIETY DISORDER, UNSPECIFIED 10/13/2017 OMAR, FABRICE COOK RAILROAD Ot I11.0 HYPERTENSIVE HEART DISEASE WITH HEART FA 10/13/2017 OMAR, FABRICE COOK RAILROAD Ot I25.2 OLD MYOCARDIAL INFARCTION 10/13/2017 OMAR, FABRICE COOK RAILROAD Ot I50.9 HEART FAILURE, UNSPECIFIED 10/13/2017 OMAR, FABRICE COOK RAILROAD Ot N39.0 URINARY TRACT INFECTION, SITE NOT SPECIF 10/13/2017 OMAR, FABRICE COOK RAILROAD Ot R53.1 WEAKNESS 10/13/2017 OMAR, FABRICE COOK RAILROAD Ot Z79.52 CRANE MECHANIC (CURRENT) USE OF SYSTEMIC STER 10/13/2017 OMAR, FABRICE COOK RAILROAD Ot Z79.82 SNF (CURRENT) USE OF ASPIRIN 10/13/2017 OMAR, FABRICE COOK RAILROAD Ot Z79.84 SNF (CURRENT) USE OF ORAL HYPOGLYC 10/17/2017 OMAR, FABRICE COOK RAILROAD Ot E11.40 TYPE 2 DIABETES MELLITUS WITH DIABETIC N 10/17/2017 OMAR, FABRICE COOK RAILROAD Ot E78.00 PURE HYPERCHOLESTEROLEMIA, UNSPECIFIED 10/17/2017 OMAR, FABRICE COOK RAILROAD Ot F12.90 CANNABIS USE, UNSPECIFIED, UNCOMPLICATED 10/17/2017 OMAR, FABRICE COOK RAILROAD Ot F17.210 NICOTINE DEPENDENCE, CIGARETTES, UNCOMPL 10/17/2017 OMAR, FABRICE COOK RAILROAD Ot F32.9 MAJOR DEPRESSIVE DISORDER, SINGLE EPISOD 10/17/2017 OMAR, FABRICE COOK RAILROAD Ot F41.9 ANXIETY DISORDER, UNSPECIFIED 10/17/2017 OMAR, FABRICE COOK RAILROAD Ot I11.0 HYPERTENSIVE HEART DISEASE WITH HEART FA 10/17/2017 OMAR, FABRICE COOK RAILROAD Ot I25.2 OLD MYOCARDIAL INFARCTION 10/17/2017 OMAR, FABRICE COOK RAILROAD Ot I50.9 HEART FAILURE, UNSPECIFIED 10/17/2017 OMAR, FABRICE COOK RAILROAD Ot N39.0 URINARY TRACT INFECTION, SITE NOT SPECIF 10/17/2017 OMAR, FABRICE COOK RAILROAD Ot R53.1 WEAKNESS 10/17/2017 OMAR, FABRICE COOK RAILROAD Ot Z79.52 CRANE MECHANIC (CURRENT) USE OF SYSTEMIC STER 10/17/2017 FABRICE NELSON Ot Z79.82 CRANE MECHANIC (CURRENT) USE OF ASPIRIN 10/17/2017 FABRICE NELSON Ot Z79.84 SNF (CURRENT) USE OF ORAL HYPOGLYC 10/29/2017 EMILIANO DAVID, DEV Pierre Ot 789.09 ABDOMINAL PAIN, OTHER SPECIFIED SITE 10/29/2017 ZUHAIR ROTHMAN, REED M Ot 789.02 ABDOMINAL PAIN, LEFT UPPER QUADRANT 10/29/2017 EMILIANO DAVID, DEV Pierre Ot 553.21 INCISIONAL HERNIA 10/29/2017 EMILIANO DAVID, DEV Pierre Ot V72.63 PRE-PROCEDURAL LABORATORY EXAMINATION 10/29/2017 EMILIANO DAVID, DEV Pierre Ot V72.81 HIWR-DLJ-FDHPDKAZS CARDIOVASCULAR 10/29/2017 EMILIANO DAVID, DEV Pierre Ot [...] PAIN 10/29/2017 MARILEE OSWALD APRN Ot Z79.01 CRANE MECHANIC (CURRENT) USE OF ANTICOAGULANT 10/29/2017 MARILEE OSWALD APRN Ot Z79.52 SNF (CURRENT) USE OF SYSTEMIC STER 10/29/2017 MARILEE OSWALD APRN Ot Z79.82 SNF (CURRENT) USE OF ASPIRIN 10/29/2017 MARILEE OSWALD APRN Ot Z79.84 CRANE MECHANIC (CURRENT) USE OF ORAL HYPOGLYC 10/29/2017 MARILEE OSWALD APRN Ot Z87.19 PERSONAL HISTORY OF OTHER DISEASES OF 10/29/2017 EMILIANO DAVID, DEV Pierre Ot 789.09 ABDOMINAL PAIN, OTHER SPECIFIED SITE 10/29/2017 ZUHAIR ROTHMAN, REED Ignacio Ot 789.02 ABDOMINAL PAIN, LEFT UPPER QUADRANT 10/29/2017 EMILIANO DAVID, DEV Pierre Ot 553.21 INCISIONAL HERNIA 10/29/2017 EMILIANO DAVID, DEV Pierre Ot V72.63 PRE-PROCEDURAL LABORATORY EXAMINATION 10/29/2017 EMILIANO DAVID, DEV Pierre Ot V72.81 AVEW-ZIL-YQXQYMWOU CARDIOVASCULAR 10/29/2017 EMILIANO DAVID, DEV Pierre Ot [...] PAIN 11/02/2017 MARILEE OSWALD APRN Ot Z79.01 CRANE MECHANIC (CURRENT) USE OF ANTICOAGULANT 11/02/2017 MARILEE OSWALD APRN Ot Z79.52 SNF (CURRENT) USE OF SYSTEMIC STER 11/02/2017 MARILEE OSWALD APRN Ot Z79.82 CRANE MECHANIC (CURRENT) USE OF ASPIRIN 11/02/2017 MARILEE OSWALD APRN Ot Z79.84 CRANE MECHANIC (CURRENT) USE OF ORAL HYPOGLYC 11/02/2017 MARILEE [...] MD, Ot I25.10 ATHSCL HEART DISEASE OF [place] CORONARY 11/13/2017 MARIJA BOYER MD, Ot I25.2 OLD MYOCARDIAL INFARCTION 11/13/2017 MARIJA BOYER MD Ot R29.810 FACIAL WEAKNESS 11/13/2017 MARIJA BOYER MD Ot Z77.22 CNTCT W AND EXPSR TO ENVIRON TOBACCO SMO 11/13/2017 MARIJA BOYER MD, Ot Z79.52 CRANE MECHANIC (CURRENT) USE OF SYSTEMIC STER 11/13/2017 MARIJA BOYER MD, Ot Z79.82 CRANE MECHANIC (CURRENT) USE OF ASPIRIN 11/13/2017 MARIJA BOYER MD Ot Z79.84 CRANE MECHANIC (CURRENT) USE OF ORAL HYPOGLYC 11/13/2017 MARIJA [...] EXAMINATION 11/13/2017 DEV CUMMINGS MD Ot V72.81 XVOI-UJO-WPQGUJAOZ CARDIOVASCULAR 11/13/2017 EMILIANO DAVID, DEV Pierre Ot V74.8 SCREEN-BACTERIAL DIS NEC 11/13/2017 EMILIANO DAVID, DEV Pierre Ot 789.09 ABDOMINAL PAIN, OTHER SPECIFIED SITE 11/13/2017 ZUHAIR ROTHMAN REED Ignacio Ot 789.02 ABDOMINAL PAIN, LEFT UPPER QUADRANT 11/13/2017 DEV CUMMINGS MD Ot 553.21 INCISIONAL HERNIA 11/13/2017 DEV CUMMINGS MD Ot V72.63 PRE-PROCEDURAL LABORATORY EXAMINATION 11/13/2017 DEV CUMMINGS MD Ot V72.81 JXGD-QLQ-CFIUDFEUB CARDIOVASCULAR 11/13/2017 EMILIANO DAVID, DEV Pierre Ot [...] MD Ot I25.10 ATHSCL HEART DISEASE OF [place] CORONARY 11/16/2017 MARIJA BOYER MD Ot I25.2 OLD MYOCARDIAL INFARCTION 11/16/2017 MARIJA BOYER MD Ot R29.810 FACIAL WEAKNESS 11/16/2017 MARIJA BOYER MD Ot Z77.22 CNTCT W AND EXPSR TO ENVIRON TOBACCO SMO 11/16/2017 MARIJA BOYER MD Ot Z79.52 SNF (CURRENT) USE OF SYSTEMIC STER 11/16/2017 MARIJA BOYER MD Ot Z79.82 CRANE MECHANIC (CURRENT) USE OF ASPIRIN 11/16/2017 MARIJA BOYER MD Ot Z79.84 SNF (CURRENT) USE OF ORAL HYPOGLYC 11/16/2017 MARIJA BOYER MD Ot Z87.19 PERSONAL HISTORY OF OTHER DISEASES OF TH 11/16/2017 MERLIN DAVID, MARIJA Medrano Ot Z95.5 PRESENCE OF CORONARY ANGIOPLASTY IMPLANT 11/16/2017 MERLIN DAVID, MARIJA Medrano Ot Z98.890 OTHER SPECIFIED POSTPROCEDURAL STATES 05/05/2018 EMILIANO DAVID, DEV Pierre Ot 789.09 ABDOMINAL PAIN, OTHER SPECIFIED SITE 05/05/2018 ZUHAIR ROTHMAN, REED Pierre Ot 789.02 ABDOMINAL PAIN, LEFT UPPER QUADRANT 05/05/2018 EMILIANO DAVID, DEV Pierre Ot 553.21 INCISIONAL HERNIA 05/05/2018 EMILIANO DAVID, DEV Pierre Ot V72.63 PRE-PROCEDURAL LABORATORY EXAMINATION 05/05/2018 EMILIANO DAVID, DEV Pierre Ot V72.81 SKZZ-UZA-VWYCQPYEW CARDIOVASCULAR 05/05/2018 EMILIANO DAVID, DEV Pierre Ot V74.8 SCREEN-BACTERIAL DIS NEC 06/04/2018 OMAR, FABRICE COOK RAILROAD Ot E11.40 TYPE 2 DIABETES MELLITUS WITH DIABETIC N 06/04/2018 OMAR FABRICE COOK RAILROAD Ot E78.00 PURE HYPERCHOLESTEROLEMIA, UNSPECIFIED 06/04/2018 OMAR, FABRICE COOK RAILROAD Ot F12.90 CANNABIS USE, UNSPECIFIED, UNCOMPLICATED 06/04/2018 OMAR, FABRICE COOK RAILROAD Ot F17.210 NICOTINE DEPENDENCE, CIGARETTES, UNCOMPL 06/04/2018 OMAR FABRICE COOK RAILROAD Ot F32.9 MAJOR DEPRESSIVE DISORDER, SINGLE EPISOD 06/04/2018 OMAR, FABRICE COOK RAILROAD Ot F41.9 ANXIETY DISORDER, UNSPECIFIED 06/04/2018 OMAR, FABRICE COOK RAILROAD Ot I11.0 HYPERTENSIVE HEART DISEASE WITH HEART FA 06/04/2018 OMAR FABRICE COOK RAILROAD Ot I25.2 OLD MYOCARDIAL INFARCTION 06/04/2018 OMAR FABRICE COOK RAILROAD Ot I50.9 HEART FAILURE, UNSPECIFIED 06/04/2018 OMAR, FABRICE COOK RAILROAD Ot N39.0 URINARY TRACT INFECTION, SITE NOT SPECIF 06/04/2018 OMAR FABRICE COOK RAILROAD Ot R53.1 WEAKNESS 06/04/2018 OMAR FABRICE COOK RAILROAD Ot Z79.52 CRANE MECHANIC (CURRENT) USE OF SYSTEMIC STER 06/04/2018 OMAR FABRICE COOK RAILROAD Ot Z79.82 SNF (CURRENT) USE OF ASPIRIN 06/04/2018 OMAR FABRICE COOK RAILROAD Ot Z79.84 SNF (CURRENT) USE OF ORAL HYPOGLYC 01/17/2020 TRIPP DAVID, REED Molina Ot I50.9 HEART FAILURE, UNSPECIFIED 01/17/2020 TRIPP DAVID, REED Molina Ot R06.02 SHORTNESS OF BREATH 02/09/2020 PALAK DAVID, Ignacio VILLASEÑOR Ot E78 .5 HYPERLIPIDEMIA, UNSPECIFIED 02/09/2020 PALAK DAVID, M KASI Ot I10 ESSENTIAL (PRIMARY) HYPERTENSION 02/09/2020 PALAK DAVID, Ignacio VILLASEÑOR Ot I25.10 ATHSCL HEART DISEASE OF [place] CORONARY 02/09/2020 PALAK DAVID, Ignacio VILLASEÑOR Ot I42 .9 CARDIOMYOPATHY, UNSPECIFIED 02/09/2020 PALAK DAVID, Ignacio VILLASEÑOR Ot I48 .0 PAROXYSMAL ATRIAL FIBRILLATION 02/09/2020 PALAK DAVID, Ignacio VILLASEÑOR Ot Z72 .0 TOBACCO USE 02/09/2020 PALAK DAVID, Ingacio VILLASEÑOR Ot E78 .5 HYPERLIPIDEMIA, UNSPECIFIED 02/09/2020 PALAK DAVID, Ignacio VILLASEÑOR Ot I10 ESSENTIAL (PRIMARY) HYPERTENSION 02/09/2020 PALAK DAVID, Ignacio VILLASEÑOR Ot I25.10 ATHSCL HEART DISEASE OF [place] CORONARY 02/09/2020 PALAK DAVID, Ignacio VILLASEÑOR Ot I42 .9 CARDIOMYOPATHY, UNSPECIFIED 02/09/2020 PALAK DAVID, Ignacio VILLASEÑOR Ot I48 .0 PAROXYSMAL ATRIAL FIBRILLATION 02/09/2020 PALAK DAVID, Ignacio VILLASEÑOR Ot Z72 .0 TOBACCO USE 02/16/2020 PALAK DAVID, Ignacio VILLASEÑOR Ot E78 .5 HYPERLIPIDEMIA, UNSPECIFIED 02/16/2020 PALAK DAVID, Ignacio VILLASEÑOR Ot I10 ESSENTIAL (PRIMARY) HYPERTENSION 02/16/2020 PALAK DAVID, Ignacio VILLASEÑOR Ot I25.10 ATHSCL HEART DISEASE OF [place] CORONARY 02/16/2020 PALAK DAVID, Ignacio VILLASEÑOR Ot I42 .9 CARDIOMYOPATHY, UNSPECIFIED 02/16/2020 PALAK DAVID, Ignacio VILLASEÑOR Ot I48 .0 PAROXYSMAL ATRIAL FIBRILLATION 02/16/2020 PALAK DAVID, Ignacio VILLASEÑOR Ot Z72 .0 TOBACCO USE 02/16/2020 PALAK DAVID, Ignacio VILLASEÑOR Ot E78 .5 HYPERLIPIDEMIA, UNSPECIFIED 02/16/2020 Ignacio CID MD Ot I10 ESSENTIAL (PRIMARY) HYPERTENSION 02/16/2020 Ignacio CID MD Ot I25.10 ATHSCL HEART DISEASE OF [place] CORONARY 02/16/2020 PALAK DAVID, Ignacio VILLASEÑOR Ot I42 .9 CARDIOMYOPATHY, UNSPECIFIED 02/16/2020 PALAK DAVID, M KASI Ot I48 .0 PAROXYSMAL ATRIAL FIBRILLATION 02/16/2020 PALAK DAVID, Ignacio VILLASEÑOR Ot Z72 .0 TOBACCO USE 02/22/2020 PALAK DAVID, Ignacio VILLASEÑOR Ot E78 .5 HYPERLIPIDEMIA, UNSPECIFIED 02/22/2020 PALAK DAVID, M KASI Ot I10 ESSENTIAL (PRIMARY) HYPERTENSION 02/22/2020 Ignacio CID MD Ot I25.10 ATHSCL HEART DISEASE OF [place] CORONARY 02/22/2020 Ignacio CID MD Ot I42 .9 CARDIOMYOPATHY, UNSPECIFIED 02/22/2020 PALAK DAVID, M KASI Ot I48 .0 PAROXYSMAL ATRIAL FIBRILLATION 02/22/2020 PALAK DAVID, M KASI Ot Z72 .0 TOBACCO USE 02/22/2020 PALAK DAVID, M KASI Ot E78 .5 HYPERLIPIDEMIA, UNSPECIFIED 02/22/2020 PALAK DAVID M KASI Ot I10 ESSENTIAL (PRIMARY) HYPERTENSION 02/22/2020 PALAK DAVID M KASI Ot I25.10 ATHSCL HEART DISEASE OF [place] CORONARY 02/22/2020 Ignacio CID MD Ot I42 .9 CARDIOMYOPATHY, UNSPECIFIED 02/22/2020 PALAK DAVID M KASI Ot I48 .0 PAROXYSMAL ATRIAL FIBRILLATION 02/22/2020 PALAK DAVID M KASI Ot Z72 .0 TOBACCO USE Procedures Code Description [place] [address] ROUT INE VENIPUNCTURE 03/21/2013 54138 A1C (IN-HOUSE) 03/21/2013 45573 CBC 03/21/2013 00973 CMP 03/21/20130183640 GF R CALC (RESULT ONLY) 03/21/2013 46022 VIT B 12 03/21/2013 51132 FOLATE 03/21/2013 93290 TSH 03/21/2013 DEV FALCON 03/21/[address] C HEST W/DYE 04/25/[address] A BDOMEN W/ CONTRAST 04/25/2013 40781 US A BDOMEN ULTRASOUND, LIMITED (SPECIFY ORGAN) 05/13/2013 33295 A1C (IN-HOUSE) 08/26/2013 2028F FOOT EXAM PERFORMED 08/26/2013 [id number] DI LATION OF 1 COR ART WITH DRUG-ELUT INT 09/12/2017 [id number] ME ASURE OF CARDIAC SAMPL PRESSURE, L H 09/12/2017 [id number] FL UOROSCOPY OF MULT COR ART USING L OSM 09/12/2017 [id number] ME ASURE OF CARDIAC SAMPL PRESSURE, L H 09/17/2017 [id number] RE SPIRATORY VENTILATION, LESS THAN 24 CO 09/17/2017 [id number] FL UOROSCOPY OF MULT COR ART USING L OSM 09/17/2017 [id number] FL UOROSCOPY OF ABDOMINAL AORTA USING LOW 09/17/2017 [id number] FL UOROSCOPY OF BILATERAL RENAL ARTERIES 09/17/2017 [...] Blood erythrocyte morphology finding identification NORMAL NRG Comprehensive metabolic panel - 09/09/17 18:49 Serum [...] 09/09/17 19:5 5 QUANTITY OF GROWTH . NRG FREE TEXT ENTRY 3 PLUS NORMAL CRISTIAN [...] Blood erythrocyte morphology finding identification NORMAL NR Whole blood basic metabolic panel - 10/25 [...] PLUS NORMAL CRISTIAN NRG Bacterial sputum culture [id number] NRG Complete blood count (CBC) with automate [...] Complete urinalysis with reflex to culture YES [facility] Comprehensive metabolic panel - 10/11/17 19:30 Serum [...] culture - 10/11/17 19:30 Bacterial urine culture [id number] NRG COLONY COUNT >100,000/ML NRG FTX;REPORTABLE SENSITIVITY REPORTED 10/12/17 15:30 NR Bacterial susceptibility panel - 8 19:30 Gentamicin [...] 7-25 CREATININE 1.10 mg/dL 0.70-1.25 eGFR NON-AFR. FAROESE 72 mL/min/1.73m2 > OR = 60 eGFR [...] 09:14 HCV RNA, QUANTITATIVE REAL TIME PCR [id number] IU/mL NOT DETECTED HCV RNA, QUANTITATIVE REAL [...] 10:36 HCV RNA, QUANTITATIVE REAL TIME PCR [id number] IU/mL NOT DETECTED HCV RNA, QUANTITATIVE REAL [...] 7-25 CREATININE 1.56 mg/dL 0.70-1.25 eGFR NON-AFR. FAROESE 46 mL/min/1.73m2 > OR = 60 eGFR [...] LIPASE - 11/03/19 12:54 LIPASE 138 U/L 760 AMYLASE - 11/03/19 12:54 AMYLASE 39 U/L 21-101 LIPASE - 11/07/19 08:57 LIPASE 139 U/L 7-60 AMYLASE - 11/21/19 09:48 AMYLASE 46 U/L 21-101 DIFFERENTIAL, MANUAL - 11/21/19 09:48 ABSOLUTE NEUTROPHILS [...] PLATELET ESTIMATION ADEQUATE ADEQUATE CBC MORPHOLOGY NORMAL CMP - 02/09/20 13:51 GLUCOSE 172 mg/dL 65-99 UREA NITROGEN (BUN) 15 mg/dL 7-25 CREATININE 1.03 mg/dL 0.70-1.25 eGFR NON-AFR. FAROESE 76 mL/min/1.73m2 > OR = 60 eGFR 88 mL/min/1.73m2 > OR = 60 BUN/CREATININE RATIO NOT APPLICABLE (calc) 6-22 SODIUM 141 mmol/L 135-146 POTASSIUM 4.1 mmol/L 3.5-5.3 CHLORIDE 105 mmol/L 98-110 CARBON DIOXIDE 30 mmol/L 20-32 CALCIUM 8.6 mg/dL 8.6-10.3 PROTEIN, TOTAL 6.7 g/dL 6.1-8.1 ALBUMIN 3.8 g/dL 3.6-5.1 GLOBULIN 2.9 g/dL (calc) 1.9-3.7 ALBUMIN/GLOBULIN RATIO 1.3 (calc) 1.0-2. 5 BILIRUBIN, TOTAL 0.3 mg/dL 0.2-1.2 ALKALINE PHOSPHATASE 83 U/L 35-144 AST 12 U/L 10-35 ALT 8 U/L 9-46 Encounters ACCT No. Visit Date/Time Discharge Status Pt. Type Provider Facility Loc./Unit Complaint [id number] 08/26/2013 09:37:00 08/26/2013 23:59: 59 CLS Outpatient BRYANT DOE DO [id number] 08/26/2013 09:37:00 08/26/2013 23:59: 59 CLS Outpatient BRYANT DOE DO [id number] 06/20/2013 13:28:00 06/20/2013 23:59: 59 CLS Outpatient BRYANT DOE DO [id number] 05/13/2013 09:36:00 05/13/2013 23:59: 59 CLS Outpatient BRYANT DOE DO [id number] 04/25/2013 15:41:00 04/25/2013 23:59: 59 CLS Outpatient BRYANT DOE DO [id number] 04/25/2013 00:00:00 04/25/2013 23:59: 59 CLS Outpatient BRYANT DOE DO [id number] 03/21/2013 13:47:00 Document Registration [id number] 02/09/2020 07:55:00 23:59:59 CLS Outpatient Ignacio CID MD [facility] CARD CAD,CARDIOMYOPATHY,HYPERLIPIDEMIA,HYPERTENSION [id number] 02/03/2020 08:40:00 23:59:59 CLS Outpatient Ignacio CID MD [facility] CARD CAD,CARDIOMYOPATHY,HYPERLIPIDEMIA,HYPERTENSION [id number] 01/17/2020 12:10:00 13:38:00 DIS Emergency TRIPP DAVID, REED Molina [facility] ER SOA;FEET SWELLI NG;CHF [id number] 08/01/2019 08:00:00 23:59:59 CLS Preadmit DELALONSO ENCINAS DOIC B V [facility] ENDO SCREENING/GASTRITIS [id number] 11/13/2017 10:58:00 018 13:30:00 DIS Emergency MARIJA BOYER MD [facility] ER FACIAL DROOP [id number] 10/29/2017 10:44:00 018 14:32:00 DIS Emergency MARILEE OSWALD APRN [facility] ER ABD PAIN,BACK PAIN [id number] 10/11/2017 17:57:00 018 20:34:00 DIS Emergency FABRICE NELSON [facility] ER "DOESN'T FEEL GOOD"/MIKHAIL ATHING ISSUES [id number] 09/15/2017 02:50:00 018 16:35:00 DIS Inpatient VIOLET DAVID, COCO Pierre [facility] ICU FLASH PULMONARY EDEMA,M AGLIGNANT HTN,ELEVATED [id number] 09/09/2017 20:12:00 018 14:40:00 DIS Inpatient ANA ROSA LOWE, MAURICIO V [facility] ICU NSTEMI;CHF;HTN;NIDDM;AC UPPER [place]IT RESPIRATORY FAILURE [id number] 06/21/2013 11:02:00 17:10:00 DIS Outpatient DEV CUMMINGS MD [facility] SDC VENTRAL HERNIA [id number] 06/16/2013 09:12:00 23:59:59 CLS Outpatient DEV CUMMINGS MD [facility] PREOP VENTRAL HERNIA [id number] 05/18/2013 08:00:00 013 23:59:59 CLS Outpatient REED HILTON [facility] RAD LUQ PAIN AND SWELLING [id number] 04/27/2013 08:49:00 23:59:59 CLS Outpatient DEV CUMMINGS MD [facility] RAD RT FLANK PAIN [id number] 04/12/2013 13:20:00 013 16:07:00 DIS Emergency BRADY DAVID, BRANDON R [facility] ER ABD PAIN [id number] 02/07/2013 08:57:00 13:27:00 DIS Emergency REED ALMAGUER MD [facility] ER ABD PAIN [id number] 02/23/2020 10:00:00 P Ignacio Krause MD [facility] CATH ABNORMAL NST. [id number] 09/15/2017 01:59:00 Document Registration [id number] 02/09/2020 13:20:00 02/09/2020 23:59:5 9 CLS JAN Mancia [id number] 02/09/2020 13:20:00 Document Registration [id number] 11/21/2019 09:40:00 Document Registration [id number] 11/07/2019 08:00:00 Document Registration [id number] 11/03/2019 09:40:00 Document Registration [id number] 10/10/2019 09:20:00 Document Registration [id number] 06/01/2019 10:20:00 Document Registration [id number] 05/30/2019 09:55:00 Document Registration [id number] 05/06/2019 09:00:00 Document Registration [id number] 04/07/2019 10:00:00 Document Registration [id number] 11/17/2018 09:40:00 Document Registration [id number] 10/20/2017 14:00:00 Document Registration
[2020-02-23 08:20] LABS: HEMOGLOBIN 11.9 G/DL (13.3-17.7); RED CELL DISTRIBUTION WIDTH 15.1 % (10.0-14.5); WHITE BLOOD COUNT 10.9 10^3/uL (4.3-11.0)
[2020-02-23] MEDS ORDERED: RIVA20TA PO (08:29)
[2020-02-23] MEDS ORDERED: ATOR40TA70 PO (08:36)
[2020-02-23] MEDS ORDERED: METO50TA15 PO (08:36)
[2020-02-23] MEDS ORDERED: LISI40TA PO (08:36)
[2020-02-23] MEDS ORDERED: POTA10TA36 PO (08:36)
[2020-02-23] MEDS ORDERED: INSU100V6 SQ (08:36)
[2020-02-23] MEDS ORDERED: GBPN600T PO (08:36)
[2020-02-23] MEDS ORDERED: GLIP5TAB13 PO (08:36)
[2020-02-23] MEDS ORDERED: METF-399 PO (08:36)
[2020-02-23] MEDS ORDERED: FURO40TA4 PO (08:36)
[2020-02-23] MEDS ORDERED: AMLO5TAB9 PO (08:36)
[2020-02-23] MEDS ORDERED: CLOP75TA69 PO (08:36)
[2020-02-23] MEDS ORDERED: fentaNYL INJECTION 100 MCG/2 ML AMP ONE ×2 (08:39→15:09)
[2020-02-23] MEDS ORDERED: methylPREDNISolone 125 MG (Solu-MEDROL) VIAL ONE (08:39)
[2020-02-23] MEDS ORDERED: MIDAZOLAM 5 MG/5 ML (VERSED) VIAL ONE (08:39)
[2020-02-23] MEDS ORDERED: diphenhydrAMINE 50 MG/ML INJ (BENADRYL) ONE (08:40)
[2020-02-23 08:45] LABS: INR 1.1 (0.8-1.4); PROTHROMBIN TIME PATIENT 14.3 SEC (12.2-14.7)
[2020-02-23 08:54] LABS: ALANINE AMINOTRANSFERASE 16 U/L (0-55); ALBUMIN 4.1 GM/DL (3.2-4.5); ALKALINE PHOSPHATASE 96 U/L (40-136); BILIRUBIN,TOTAL 0.5 MG/DL (0.1-1.0); BUN/CREATININE RATIO 13; CALCIUM 9.3 MG/DL (8.5-10.1); CARBON DIOXIDE 25 MMOL/L (21-32); CHLORIDE 103 MMOL/L (98-107); CREATININE SERUM 1.13 MG/DL (0.60-1.30); GFR ESTIMATED > 60; GLUCOSE 140 MG/DL (70-105); POTASSIUM 3.8 MMOL/L (3.6-5.0); SODIUM 141 MMOL/L (135-145); TOTAL PROTEIN 7.9 GM/DL (6.4-8.2)
[2020-02-23] MEDS ORDERED: ADENOSINE 3 MG/1 ML (ADENOSCAN) 30ML VIAL IV ONE ×2 (09:51→10:26)
[2020-02-23] MEDS ORDERED: HEParin 1000 UNIT/ML (10ML VIAL) FOR BOLUS ONE (09:52)
[2020-02-23] MEDS ORDERED: CLOPIDOGREL 300 MG (PLAVIX) TABLET PO ONE (10:20)
[2020-02-23] MEDS ORDERED: hydrALAZINE (APESOLINE) 20 MG/ML VIAL ONE ×2 (10:30→15:00)
[2020-02-23] MEDS ORDERED: FUROSEMIDE 40 MG/4 ML INJ (LASIX) ONE (10:30)
--- NOTE | 2020-02-23 10:47 | History & Physicial-Cardiolgy ---
HPI-Cardiology Cardiology Consultation: Date of Consultation 02/23/20 Date of Admission Attending Physician Ignacio Florentino MD Admitting Physician [facility] Consulting Physician Ignacio FLORENTINO MD HPI: Time Seen by a Provider: 09:00 Chief Complaint: shortness of breath and chest pain. This is a 64-year-old gentleman who has history of diabetes, active smoking, paroxysmal atrial fibrillation who presented with chest pain and shortness of breath. Abnormal nuclear stress test. Review of Systems-Cardiology Review of Systems Constitutional: As described under HPI; No As described under HPI, No no symptoms reported, No chills, No fever, No lightheadedness Eyes: No As described under HPI, No no symptoms reported, No blindness, No blurred vision, No contact lenses, No drainage, No decreased acuity, No foreign body sensation, No pain, No vision change Ears/Nose/Throat: No As described under HPI, No no symptoms reported, No chronic hearing loss, No ear discharge, No ear pain, No nasal drainage, No ulcerations Respiratory: No no symptoms reported; As described under HPI; No As described under HPI, No cough, No orthopnea; shortness of breath; No SOB with excertion Cardiovascular: No no symptoms reported; As described under HPI; No As described under HPI; chest pain; No edema, No irregular heart rate, No lightheadedness, No palpitations Gastrointestinal: No no symptoms reported, No As described under HPI, No abdomen distended, No abdominal pain, No blood streaked bowels, No constipation, No diarrhea, No nausea, No vomiting, No stool coloration changes Genitourinary: No As described under HPI, No burning, No dysuria, No discharge, No frequency, No flank pain, No hematuria, No urgency Skin: No rash, No skin related problems, No ulcerations Psychiatric/Neurological: No anxiety, No depression, No seizure, No focal weakness, No syncope Hematologic: No bleeding abnormalities AWF-Hqqjiu-Ptzoru Hx Patient Social History Alcohol Use: Denies Use Recreational Drug Use: Yes (SMOKES LESS THAN 1 PACK PER DAY) Drug of Choice: THC Smoking Status: Current Everyday Smoker Type Used: Cigarettes 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 Family Medical History Family History: Diabetes mellitus 19 MOTHER G8 SISTER FH: lymphoma 19 FATHER Allergies and Home Medications Allergies Coded Allergies: No Known Drug Allergies (Unverified , 02/07/13) Home Medications Amlodipine Besylate 5 Mg Tablet, 5 MG PO DAILY, (Reported) Atorvastatin Calcium 40 Mg Tablet, 40 MG PO DAILY, (Reported) Clopidogrel Bisulfate 75 Mg Tablet, 75 MG PO DAILY, (Reported) Furosemide 40 Mg Tablet, 40 MG PO DAILY, (Reported) Gabapentin 600 Mg Tablet, 600 MG PO TID, (Reported) Glipizide 5 Mg Tablet, 5 MG PO DAILY, (Reported) Insulin Glargine,Hum.rec.anlog 100 Unit/1 Ml Vial, 15 UNIT SQ DAILY, (Reported) Lisinopril 40 Mg Tablet, 40 MG PO DAILY, (Reported) Metformin HCl 1,000 Mg Tablet, 1,000 MG PO BID, (Reported) Metoprolol Tartrate 50 Mg Tablet, 50 MG PO BID, (Reported) Potassium Chloride 10 Meq Tab.er.prt, 10 MEQ PO BID, (Reported) Rivaroxaban 20 Mg Tablet, 20 MG PO DAILY, (Reported) Patient Home Medication List Home Medication List Reviewed: Yes Physical Exam-Cardiology Physical Exam Vital Signs/I&O 02/23/20 08:13 Temp 36.7 Pulse 98 Resp 16 B/P (MAP) 178/88 (118) Pulse Ox 95 O2 Delivery Room Air Capillary Refill : Constitutional: appears stated age, AAO x 3; No apparent distress; well- developed, well-nourished HEENT: PERRL; No discharge; hearing is well preserved, oral hygience is good; No ulceration, No xanthelasmas are seen Neck: No carotid bruit; carotid pulses are 2 + bilaterally Respiratory: chest is bilaterally symmetric, lungs clear to auscultation Cardiovascular: regular rate-rhythm, S1 and S2 Gastrointestinal: soft, audible bowel sounds; No spleenomegaly Rectal: deferred Extremities: normal range of motion, non-tender, normal inspection; No clubbing, No cyanosis; no lower extremity edema bilateral; No significant edema Neurologic/Psychiatric: no motor/sensory deficits, alert, normal mood/affect, oriented x 3, power is 5/5 both on sides Skin: normal color, warm/dry; No rash, No ulcerations Data Review Labs Laboratory Tests 02/23/20 08:13: White Blood Count 10.9, Red Blood Count 4.10L, Hemoglobin 11.9L, Hematocrit 38L, Mean Corpuscular Volume 92, Mean Corpuscular Hemoglobin 29, Mean Corpuscular Hemoglobin Concent 32, Red Cell Distribution Width 15.1H, Platelet Count 277, Mean Platelet Volume 9.0, Prothrombin Time 14.3, INR Comment 1.1, Activated Partial Thromboplast Time 31, Sodium Level 141, Potassium Level 3.8, Chloride Level 103, Carbon Dioxide Level 25, Anion Gap 13, Blood Urea Nitrogen 15, Creatinine 1.13, Estimat Glomerular Filtration Rate > 60, BUN/Creatinine Ratio 13, Glucose Level 140H, Calcium Level 9.3, Corrected Calcium 9.2, Total Bilirubin 0.5, Aspartate Amino Transf (AST/SGOT) 17, Alanine Aminotransferase (ALT/SGPT) 16, Alkaline Phosphatase 96, Total Protein 7.9, Albumin 4.1 A/P-Cardiology Assessment/Admission Diagnosis Chest pain, abnormal nuclear stress test, Previous history of CAD, ostial LAD PCI, Paroxysmal atrial fibrillation Admission Status: Observation Plan Coronary angiography is recommended. Informed consent was taken. Ignacio FLORENTINO MD Feb 23, 2020 10:47
--- NOTE | 2020-02-23 10:47 | Cardiac Procedure Note-CS/ASA ---
Pre-Procedure Note Pre-Op Procedure Note H&P Reviewed The H&P was reviewed, patient examined and no changes noted. Date H&P Reviewed: Feb 23, 2020 Time H&P Reviewed: 09:00 Conscious Sedation Pre-Proced Time 09:00 ASA Score 3 For ASA 3 and 4: Consider anesthesia and medical clearance. Also, for patients with a history of failed moderate sedation consider anesthesia. Airway Lungs Heart ASA score ASA 1: a normal healthy patient ASA 2: a patient with a mild systemic disease (mid diabetes, controlled hypertension, obesity ASA 3: a patient with a severe systemic disease that limits activity (angina, COPD, prior Myocardial infarction) ASA 4: a patient with an incapacitating disease that is a constant threat to life (CHF, renal failure) ASA 5: a moribund patient not expected to survive 24 hrs. (ruptured aneurysm) ASA 6: a declared brain- patient whose organs are being harvested. For emergent operations, add the letter E after the classification Mallampati Classification Grade 1 Sedation Plan Analgesia, Amnesia, Plan communicated to team members, Discussed options with patient/fam, Discussed risks with patient/fam The patient is an appropriate candidate to undergo the planned procedure, sedation, and anesthesia. The patient immediately re-assessed prior to indication. Ignacio CID MD Feb 23, 2020 10:47
--- NOTE | 2020-02-23 10:57 | Coronary Angiography & PCI ---
Coronary Angiography & PCI DATE OF PROCEDURE: 02/23/20 INDICATION: Chest pain, abnormal nuclear stress test. PREOPERATIVE DIAGNOSIS: Chest pain, abnormal nuclear stress test. POSTOPERATIVE DIAGNOSIS: Severe mid LAD stenosis treated with a drug-eluting stent. HISTORY: This is a 64-year-old gentleman with diabetes and active smoking. He presents with chest pain. Abnormal nuclear stress test. Therefore, the patient was scheduled for coronary angiography. PROCEDURES PERFORMED: 1.Coronary angiography. 2.Left heart catheterization. 3.FFR to the mid LAD. 4. PCI to the mid LAD with drug-eluting stent. 5. FFR to the ostium of the OM artery. 6. Abdominal aortogram and bilateral lower extremity runoff. Medical necessity: Difficulty advancing wire in the right common iliac artery. Need to rule out PAD. COMPLICATIONS: None. SPECIMENS: None. ESTIMATED BLOOD LOSS: 10 mL ANESTHESIA: Conscious sedation ANTICOAGULATION: IV heparin CONTRAST: 131 mL. FLUOROSCOPY: 8.5 minutes. FLOUROSCOPY DOSE: 1353 mgy. PROCEDURE DETAILS: The patient is a 64 male and was brought to the logging rafter laborer after informed consent was taken. All the risks and complications were explained in detail; this included the risk of bleeding, vascular damage, stroke, DE and even . The patient was draped and prepped in the usual sterile fashion. Access was gained in the right femoral artery with a 5 [place] sheath. Coronary angiography and left heart catheterization was performed with a JR4, JL4 and pigtail catheter. Abdominal aortogram and bilateral lower extremity runoff was performed with a pigtail catheter. FINDINGS: 1.Left main: Patent. 2.LAD: Patent stent in the ostium of the LAD. Severe disease in the mid LAD. 3.Left circumflex artery: Moderate disease in the ostium of OM1 artery. 4.RCA: Known chronic total occlusion of the RCA. 5.Left heart catheterization: LV pressure 178/13 mmHg. LVEDP 36 mmHg. Aortic pressure 167/73 mmHg. Normal LV function with inferior akinesis. No gradient across the aortic valve. 6. Abdominal aortogram with bilateral lower extremity runoff. Moderate right renal artery stenosis. Normal left renal artery. No significant disease in the abdominal aorta. Mild disease in the ostium of the right common iliac artery. Patent left common iliac artery. Patent bilateral external iliac artery, common femoral artery. Mild disease in the right SFA. At least moderate disease in the left SFA. RECOMMENDATIONS: FFR to the LAD and left circumflex artery is recommended. INTERVENTION DETAILS: JL4 6 [place] guide catheter. Pressure wire, IV heparin for anticoagulation. Plavix 300 mg was given before the PCI. The lesion in the mid LAD was crossed with the pressure wire. Baseline FFR was 0.88. Adenosine was started at 140 g per KG per minute for 1-1/2-2 minutes. Lowest FFR was 0.80. Direct stenting was done with a 3.5 x 15mm Xience Carline stent at 16 marjan for 11 seconds. The stent balloon was then pulled back to the overlap with the previous stent in the ostium of the LAD and the overlap area was postdilated at 20 marjan for 10 seconds. Excellent results with no residual stenosis and YA-3 flow distally. The wire was then taken back and we crossed the lesion in the OM 1. Again adenosine was started at 140 g per KG per minute for 2 minutes. Lowest FFR was 0.87. Therefore PCI was deferred. Post-angiogram did not show any vascular complication. Due to increased LVEDP Lasix 40 mg IV and will be given. Also elevated blood pressure, hydralazine 20 mg IV will be given. Manual compression will be held in the right femoral artery access site since during the procedure the patient's hand came close to over site and therefore we decided not to close it with the minx device. CONCLUSIONS: 1. Severe mid LAD stenosis treated successfully with a drug-eluting stent. 2. Moderate left circumflex artery stenosis, FFR 0.87 therefore left alone. 3. Known chronic total occlusion of the RCA. 4. Moderate disease in the right renal artery. 5. Moderate PAD. Probable moderate to severe left SFA disease. 6. Chronic diastolic congestive heart failure, with elevated LVEDP. Lasix 40 mg given. Aggressive control of blood pressure. 7. Smoking cessation is recommended. Araceli Florentino MD, FACP, FACC, [facility] Interventional Cardiology Ignacio FLORENTINO MD Feb 23, 2020 10:57
[2020-02-23] MEDS ORDERED: PATIENT MAY USE OWN MEDS, ALL PO SCH (11:00)
--- NOTE | 2020-02-23 11:02 | NUR ---
APRIL FLORES II admitted to room CU10-1, with an admitting diagnosis of S/P HEART CATH, on 02/23/20 from INTERNAL CONTROL SPECIALIST via BED, accompanied by STAFF.APRIL FLORES II introduced to surroundings, call light, bed controls, phone, TV, temperature control, lights, meal times, smoking policy, visitor policy, side rail policy, bathrooms and showers. Patient Rights given to patient in the handbook. APRIL FLORES II verbalizes understanding that [facility] is not responsible for the loss or damage to any personal effects or valuables that are kept in the patients posession during their hospitalization. The following Patient Care Plans were discussed with the PT: Discharge Planning, PAIN,HIGH RISK BLEEDING, and FLUID VOLUME DEFICIT. APRIL FLORES II verbalizes understanding of Interdisciplinary Patient Education. Patient and family were informed about the Rapid Response Team and its purpose.
[2020-02-23] MEDS ORDERED: hydrALAZINE (APESOLINE) 20 MG/ML VIAL IV ONE (15:00)
[2020-02-23] MEDS ORDERED: ATROPINE INJECTION 1 MG/10 ML SYR (ABBOTT) ONE (15:09)
[2020-02-23] MEDS ORDERED: RIVAROXABAN 20 MG TABLET (XARELTO) PO SCH (17:00)
[2020-02-23] MEDS: meTOprolol TARTRATE 50 MG (LOPRESSOR) TAB PO SCH (20:28)
[2020-02-23] MEDS: GABAPENTIN 600 MG (NEURONTIN) TAB PO SCH (20:28)
[2020-02-24 03:15] VITALS: BP 150/65
[2020-02-24 03:32] LABS: HEMOGLOBIN 11.7 G/DL (13.3-17.7); MEAN PLATELET VOLUME 9.1 FL (7.4-10.4); RED CELL DISTRIBUTION WIDTH 15.3 % (10.0-14.5); WHITE BLOOD COUNT 15.3 10^3/uL (4.3-11.0)
[2020-02-24 03:44] LABS: POTASSIUM 4.1 MMOL/L (3.6-5.0)
[2020-02-24 03:46] LABS: CALCIUM 9.2 MG/DL (8.5-10.1)
[2020-02-24 03:50] LABS: CREATININE SERUM 1.4 MG/DL (0.60-1.30)
[2020-02-24] MEDS: NS IV 1000 ML 1,000 ML IV SCH ×2 (04:10→07:05)
[2020-02-24 07:50] VITALS: BP 144/72
[2020-02-24 08:00] VITALS: BP_SYST 140; BP_SYST 141; BP_DIAS 75; BP_DIAS 84
[2020-02-24] MEDS: GABAPENTIN 600 MG (NEURONTIN) TAB PO SCH (08:23)
[2020-02-24] MEDS: meTOprolol TARTRATE 50 MG (LOPRESSOR) TAB PO SCH (08:23)
--- NOTE | 2020-02-24 08:49 | NUR ---
DR CID NOTIFIED OF NEGATIVE COVID TEST RESULT Addendum: 02/24/20 at 0851 by CHACORTA MAYER RN DISREGARD PREVIOUS NOTE. CHARTED ON WRONG PT
[2020-02-24] MEDS ORDERED: ASPIRIN E.C. 81 MG (ECOTRIN) TAB PO SCH (09:00)
[2020-02-24] MEDS ORDERED: CLOPIDOGREL 75 MG (PLAVIX) TABLET PO SCH (09:00)
--- NOTE | 2020-02-24 10:54 | Discharge Inst-Post CATH ---
Discharge Inst-CATH/EP Problems Reviewed?: Yes Final Diagnosis CAD Post Cardiac Cath/EP D/C Inst Follow Up/Plan Dr Florentino in two to three weeks. Restart metformin after two days. <b>CARDIAC CATH/EP PROCEDURE DISCHARGE INSTRUCTIONS</b> ACTIVITY * Go Home directly and rest. * Limit activity of the leg (or wrist if it was used) for 7 days including aerobics, swimming, jogging, bicycling, etc. * Restrict stair-climbing for 7 days if possible, if not, climb up with your non-cath leg, then bring together on the same step. * Avoid lifting, pushing, pulling or excessive movement of the affected extremity for 7 days. * Customary sexual activity may be resumed after 2 days-use caution not to use a position that strains or causes pain to the affected extremity. * No driving for 24 hours. * NO SMOKING. * Avoid straining for bowel movements for 7 days. * Gentle walking on level ground is allowed. * Returning to work will depend on the type of procedure and the results. Your doctor will discuss this with you. CALL YOUR DOCTOR FOR ANY OF THE FOLLOWING: *If bleeding from the puncture site occurs- Apply gentle pressure to site with clean cloth and call your doctor or EMS. * If a knot or lump forms under the skin, increases in size, or causes pain. * If bruising appears to be worsening or moving further down your leg instead of disappearing. * Temperature above 101 F. CARE OF YOUR GROIN INCISION; * Bruising or purple discoloration of the skin near the puncture site is common. * You may shower only, no bathtub bathing for 5 days. Be careful to avoid slipping as your leg may feel stiff. * If a closure device was used on your femoral artery, please see the attached guide regarding care of the device and your leg. * Leave dressing on FOR 24 hours. CARE OF YOUR WRIST INCISION; * Bruising or purple discoloration of the skin near the puncture site is common. * You may shower. * DO NOT submerge wrist. * Leave dressing on FOR 24 hours. Ignacio FLORENTINO MD Feb 24, 2020 10:53
--- NOTE | 2020-02-24 10:54 | Cardiology Discharge Summary ---
Diagnosis/Chief Complaint Date of Admission 02/23/2020 Date of Discharge 02/24/2020 Admission Diagnosis Chest pain, history of CAD/PCI, abnormal nuclear stress test Final/Discharge Diagnosis Severe mid LAD stenosis treated with drug-eluting stent, Paroxysmal atrial fibrillation Chief Complaint/HPI Chief Complaint/HPI This is a 64-year-old gentleman who has history of diabetes, active smoking, paroxysmal atrial fibrillation who presented with chest pain and shortness of breath. Abnormal nuclear stress test. Discharge Summary Procedures PCI to the mid LAD with a drug-eluting stent. FFR to OM1 was within normal limits. Discharge Physical Examination Normal cardiovascular examination. Hospital Course Was the Problem List Reviewed?: Yes Unremarkable. Mild elevation of WBC count noted. However patient does not have any fever or any evidence of clinical infection. We will discuss with the patient and recommended that he seeks immediate medical attention if he has any evidence of fever or infection. Pending Labs Discussion & Recommendations Discussion Discharge took over 30 minutes to complete. Procedure was discussed at length with the patient. Compliance with medical therapy was strongly recommended. Follow up appt.: Dr. Florentino in 2-3 weeks. Dicharge Diet: Cardiac Diet Activity as Tolerated: Yes Home Medications Reviewed patient Home Medication Reconciliation performed by pharmacy medication reconciliations oil and gas field technician and/or nursing. Patients Allergies have been reviewed. Discharge Home Medications: Reviewed and agree with Discharge Medication list on patient's Discharge Instruction sheet Condition at discharge Stable. Instructions to patient/family Dr Florentino in two to three weeks. Restart metformin after two days. Ignacio FLORENTINO MD Feb 24, 2020 10:54
[2020-02-24 11:30] VITALS: BP 141/84
--- NOTE | 2020-02-24 11:30 | NUR ---
APRIL FLORES II demonstrates understanding of discharge instructions and accurately returns instructions upon questioning. Copy of Post-Discharge Instructions and Medication Discharge Instructions given to PT. APRIL FLORES II is able to manage continuing needs after discharge. Patients belongings returned to PT. Skin dry and intact; no breakdown noted. Patient discharged from ICU10 on 02/24/20 at 1130. APRIL FLORES II left floor AMBULATING, accompanied by STAFF.
--- NOTE | 2020-02-24 13:29 | NUR ---
RD ASSESSMENT PMHx: DM; hypercholesterolemia; HTN; CAD; pancreatitis PT INTERACTION: Pt was awake and pleasant during nutrition assessment. Pt states current appetite is good. Note no meals recorded, per chart review. Pt states trying to follow a low-CHO diet at home, and has no issues with chewing/swallowing food. Pt states no recent issues with nausea, vomiting, constipation, or diarrhea, and that his last BM was "before I got here." Note pt not currently on bowel regimen per chart review. Pt states no recent wt changes. Note unable to determine recent wt hx, per chart review. Pt states current DM management is pretty good. Note unable to determine recent HbA1c, per chart review. ABNORMAL NUTRITION-RELATED LAB VALUES LOW: HIGH: BUN 28; cr 1.40; glu 272 Est. kcal needs: 1825 kcal | 20 kcal/kg Est. Pro needs: 73 g Pro | 0.8 g Pro/kg PES STATEMENT: Food- and nutrition-related knowledge deficit (NB-1.1) related to lack of prior nutrition-related education (DM management) as evidenced by pt interview INTERVENTION: Continue with current diet order of CHO 60g/m 1snack diet. Discussed and offered diet education on DM management. Discussed portion control, CHO amounts of common foods in pt's diet, and cost benefits of buying fruits/vegetables in bulk. Pt verbalized understanding of information provided. Will continue to follow and reassess as pt needs, intake, and status change. MONITOR/EVALUATE: PO Intake; Plan of Care; Hydration Status; Weight Status; Lab Values Tres Platt, MS, RD, LD
== END 2020-02-24 11:30 | disposition home or self-care (01) ==
LOC: CATH 07:44 → ICU 11:02 → CATH 02-24 11:30
PROVIDERS: ATTEND Internal Medicine Interventional Cardiology
DX: I25.10 Atherosclerotic heart disease of native coronary artery without angina pectoris (principal); I25.82 Chronic total occlusion of coronary artery; I48.0 Paroxysmal atrial fibrillation; I13.0 Hypertensive heart and chronic kidney disease with heart failure and stage 1 through stage 4 chronic kidney disease, or unspecified chronic kidney disease; I50.32 Chronic diastolic (congestive) heart failure; N18.9 Chronic kidney disease, unspecified; I42.9 Cardiomyopathy, unspecified; E11.51 Type 2 diabetes mellitus with diabetic peripheral angiopathy without gangrene; F17.210 Nicotine dependence, cigarettes, uncomplicated; Z79.4 Long term (current) use of insulin; Z79.899 Other long term (current) drug therapy; Z79.82 Long term (current) use of aspirin; Z95.5 Presence of coronary angioplasty implant and graft; Z86.74 Personal history of sudden cardiac arrest; Z11.2 Encounter for screening for other bacterial diseases
CPT/HCPCS: 80048; 80053; 85027 ×2; 85347; 85610; 85730; 87081; 93005; 93458; 93571; 93572; C1769 ×2; C1874; C1887; C1894 ×2; C9600; G0278; 36415

== ENCOUNTER 2020-04-16 03:32 | Inpatient (IN) | payer MEDICARE, OTHER ==
[2020-04-16] VITALS (26 sets, daily range): BP systolic 117–191; BP diastolic 74–134
[~2020-04-16] VITALS: Ht 180 cm; Wt 107.8 kg
[~2020-04-16 03:32] MED LIST changes: +ATOR40TA70 PO; +BUPR150T14 PO; +CLOP75TA69 PO; +FLUT12AE4 IH; +FURO40TA4 PO; +FURO80TA83 PO; +GBPN600T PO; +GLIP10TA13 PO; +GLIP5TAB13 PO; +INSU100V6 SQ; +LISI40TA PO; +POTA10TA36 PO; +RIVA20TA PO
[2020-04-16] MEDS ORDERED: HYDR12.56 (03:53)
--- NOTE | 2020-04-16 03:59 | ED Respiratory ---
General Chief Complaint: Respiratory Problems Stated Complaint: SHORTNESS OF AIR Source: patient (VERY LIMITED HISTORIAN ) History of Present Illness Date Seen by Provider: Apr 16, 2020 Time Seen by Provider: 03:35 Initial Comments PT ARRIVES VIA EMS FROM HOME C/O SHORTNESS OF BREATH SINCE THIS EVENING PT WAS STARTED ON CPAP BY EMS ENROUTE PT HAS COPD AND WAS RECENTLY STARTED ON HOME O2 AT 2L/NC PT ALSO HAS CHF AND HAS INCREASE IN LEG SWELLING DENIES FEVER/SWEATS/CHILLS DENIES ANY INCREASE IN CHRONIC COUGH PT HAS HISTORY OF CAD, HAD ABNORMAL STRESS TEST 02/09/20 AND WAS ADMITTED FOR CARDIAC CATH AND HAD STENT PLACED PT ADMITTED AGAIN 03/06/20 FOR NSTEMI-NO INTERVENTION DONE AT THAT TIME PT HAS HISTORY OF PAROXYSMAL ATRIAL FIBRILLATION AND IS ON XARELTO PT WAS ALSO STARTED ON PLAVIX AFTER RECENT INTERVENTION AND NSTEMI ADDITIONALLY PT IS INSULIN DEPENDENT DIABETIC--DOES NOT CHECK BLOOD GLUCOSE ON REGULAR BASIS PT CONTINUES TO SMOKE AT LEAST 2 PPD, IN ADDITION TO SMOKING MARIJUANA ON REGULAR BASIS PT ALSO HAS HISTORY OF ALCOHOL ABUSE PT HAS BEEN IN [place] THIS WEEKEND FOR FAMILY REUNION/GET TOGETHER, AND JUST GOT BACK THIS EVENING PT DID NOT TAKE HIS MEDICATIONS WHILE HE WAS IN [place] DOES NOT KNOW IF HE WAS EXPOSED TO COVID-19 PT HAS A LONG HISTORY OF NON-COMPLIANCE. PCP: 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 CID Allergies and Home Medications Allergies Coded Allergies: No Known Drug Allergies (Unverified , 02/07/13) Home Medications Amlodipine Besylate 5 Mg Tablet, 5 MG PO DAILY, (Reported) Atorvastatin Calcium 40 Mg Tablet, 40 MG PO DAILY, (Reported) Bupropion HCl 150 Mg Tablet.er, 150 MG PO DAILY, (Reported) Clopidogrel Bisulfate 75 Mg Tablet, 75 MG PO DAILY, (Reported) Fluticasone/Salmeterol 12 Gm Hfa.aer.ad, 0 PUFF IH RTBID Prescribed by: MAURICIO OSEGUERA on 03/07/20 1135 Furosemide 80 Mg Tablet, 80 MG PO DAILY Take 1 pill BID for 2 days then 1 daily Prescribed by: MAURICIO OSEGUERA on 03/07/20 1135 Gabapentin 600 Mg Tablet, 600 MG PO TID, (Reported) Glipizide 10 Mg Tablet, 10 MG PO DAILY, (Reported) Insulin Glargine,Hum.rec.anlog 100 Unit/1 Ml Vial, 18 UNIT SQ DAILY, (Reported) Lisinopril 40 Mg Tablet, 40 MG PO DAILY, (Reported) Metoprolol Tartrate 50 Mg Tablet, 50 MG PO BID, (Reported) Rivaroxaban 20 Mg Tablet, 20 MG PO DAILY, (Reported) Patient Home Medication List Home Medication List Reviewed: Yes Review of Systems Review of Systems Constitutional: no symptoms reported; No chills, No diaphoresis, No dizziness, No fever EENTM: no symptoms reported Respiratory: see HPI, cough, short of breath Cardiovascular: No chest pain; edema Gastrointestinal: no symptoms reported Genitourinary: no symptoms reported Musculoskeletal: no symptoms reported Skin: no symptoms reported Psychiatric/Neurological: No Symptoms Reported Hematologic/Lymphatic: No Symptoms Reported Immunological/Allergic: no symptoms reported Past Zhfpaty-Opxicp-Ughmkp Hx Past Med/Social Hx: Reviewed and Corrections made Patient Social History Alcohol Use: Past History Recreational Drug Use: Yes (THC) Drug of Choice: THC Smoking Status: Current Everyday Smoker Type Used: Cigarettes 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) Recent Foreign Travel: No Contact w/Someone Who Travel: No Recent Hopitalizations: No Physical Abuse: No Sexual Abuse: No Mistreated: No Fear: No Immunizations Up To Date Tetanus Booster (TDap): Unknown PED Vaccines UTD: No Date of Pneumonia Vaccine: Sep 09, 2017 Date of Influenza Vaccine: Sep 17, 2017 Seasonal Allergies Seasonal Allergies: No Past Medical History Surgeries: Yes (VENTRAL HERNIA 2012;CARDIAC CATH-STENTS X2 TO LAD,LAST STENT 02/23/20) Abdominal, Cardiac, Coronary Stent Respiratory: Yes (RESPIRATORY FAILURE, HOME 02 AT 2L/NC) COPD Currently Using CPAP: No Currently Using BIPAP: No Cardiac: Yes (CHF;PAROXYSMAL A FIB;CODED 09/16/17; NSTEMI 03/06/20;STENTS X2) Atrial Fibrillation, Chronic Edema/Swelling, Coronary Artery Disease, Heart Attack, High Cholesterol, Hypertension Neurological: Yes (PERIPHERAL NEUROPATHY) Neuropathy Reproductive Disorders: No Sexually Transmitted Disease: No HIV/AIDS: No Genitourinary: Yes (NO DIALYSIS) Renal Failure Gastrointestinal: Yes (S/P VENTRAL HERNIA REPAIR; CURRENT UMBILICAL HERNIA PRESENT) Abdominal Hernia, Pancreatitis Musculoskeletal: No Endocrine: Yes (NON COMPLAINT) Diabetes, Insulin dep HEENT: No Cancer: No Psychosocial: Yes Anxiety, Depression Integumentary: No Blood Disorders: No Adverse Reaction/Blood Tranf: No Family Medical History Cardiovascular disease G8 SISTER Diabetes mellitus 19 MOTHER G8 SISTER FH: lymphoma 19 FATHER SOCIAL HISTORY: -HISTORY OF ETOH ABUSE, NOW "OCCASIONALLY" DRINKS -USES THC ON REGULAR BASIS -SMOKES 2 PPD OF CIGARETTES PMH: -CARDIAC CATHS--STENTS X 2 TO LAD--LAST STENT TO LAD 02/23/20 -HAD NSTEMI 03/06/20--NO INTERVENTION -PT CODED 09/16/17 -HAS HISTORY OF RESPIRATORY FAILURE -LONG HISTORY OF NON-COMPLIANCE PSH: -VENTRAL HERNIA REPAIR -CARDIAC CATHS--STENTS X 2 TO LAD, LAST STENT 02/25/20 Physical Exam Vital Signs - First Documented 04/16/20 03:40 Temp 36.1 Pulse 123 Resp 20 B/P (MAP) 145/81 (102) Pulse Ox 100 O2 Delivery Non Rebreather O2 Flow Rate 15.00 Capillary Refill : Height: 5'11.00" Weight: 200lbs. 4.0oz. [id number]; 28.00 BMI Method:Stated General Appearance: WD/WN, moderate distress (TALKS IN SHORT SENTENCES ), other (UNKEMPT, MILDLY LETHARGIC, REEKS OF CIGARETTES) HEENT: PERRL/EOMI Neck: normal inspection Respiratory: respiratory distress, decreased breath sounds, accessory muscle use, rales; No wheezing; other (RESPIRATIONS SHALLOW AND TACHYPNEIC, DIFFUSE RALES BILATERALLY; TALKS IN SHORT SENTENCES) Cardiovascular: tachycardia (120-130), extra beats (FREQUENT) Gastrointestinal: non tender, hernia (SOFT UMBILICAL HERNIA, NON-TENDER), other (ROTUND, FIRM) Extremities: normal range of motion, non-tender, normal capillary refill, pedal edema (3+ BILATERALLY) Neurologic/Psychiatric: interchange agent II-XII nml as tested, no motor/sensory deficits (BUT HISTORY OF PERIPHERAL NEUROPATHY), alert, normal mood/affect, oriented x 3 Skin: normal color, warm/dry Focused Exam Lactate Level 04/16/20 04:05: Lactic Acid Level 1.45 Lactic Acid Level Laboratory Tests Test 04/16/20 04:05 Lactic Acid Level 1.45 MMOL/L (0.50-2.00) Procedures/Interventions Date of ETT Placement: Sep 17, 2017 Time of ETT Placement: 1255 Progress/Results/Core Measures Suspected Sepsis SIRS Temperature: Pulse: Respiratory Rate: Laboratory Tests 04/16/20 03:45: White Blood Count 14.9H Blood Pressure / Mean: 04/16/20 04:05: Lactic Acid Level 1.45 Laboratory Tests 04/16/20 03:45: Creatinine 1.81H, INR Comment 1.1, Platelet Count 340, Total Bilirubin 0.5 Results/Orders Lab Results Laboratory Tests Test 04/16/20 03:45 04/16/20 03:50 04/16/20 04:03 04/16/20 04:05 Range/Units White Blood Count 14.9 H 4.3-11.0 10^3/uL Red Blood Count 3.34 L 4.35-5.85 10^6/uL Hemoglobin 9.2 L 13.3-17.7 G/DL Hematocrit 31 L 40-54 % Mean Corpuscular Volume 93 80-99 FL Mean Corpuscular Hemoglobin 28 25-34 PG Mean Corpuscular Hemoglobin Concent 30 L 32-36 G/DL Red Cell Distribution Width 16.6 H 10.0-14.5 % Platelet Count 340 130-400 10^3/uL Mean Platelet Volume 9.5 7.4-10.4 FL Neutrophils (%) (Auto) 91 H 42-75 % Lymphocytes (%) (Auto) 4 L 12-44 % Monocytes (%) (Auto) 5 0-12 % Eosinophils (%) (Auto) 0 0-10 % Basophils (%) (Auto) 0 0-10 % Neutrophils # (Auto) 13.5 H 1.8-7.8 X 10^3 Lymphocytes # (Auto) 0.6 L 1.0-4.0 X 10^3 Monocytes # (Auto) 0.7 0.0-1.0 X 10^3 Eosinophils # (Auto) 0.0 0.0-0.3 10^3/uL Basophils # (Auto) 0.0 0.0-0.1 10^3/uL Neutrophils % (Manual) 90 % Lymphocytes % (Manual) 5 % Monocytes % (Manual) 3 % Eosinophils % (Manual) 0 % Basophils % (Manual) 0 % Band Neutrophils 2 % Polychromasia SLIGHT Hypochromasia SLIGHT Anisocytosis SLIGHT Macrocytosis SLIGHT Erythrocyte Sedimentation Rate 59 H 0-30 MM/HR Prothrombin Time 14.3 12.2-14.7 SEC INR Comment 1.1 0.8-1.4 Activated Partial Thromboplast Time 29 24-35 SEC D-Dimer 2.96 H 0.00-0.49 UG/ML Sodium Level 139 135-145 MMOL/L Potassium Level 4.6 3.6-5.0 MMOL/L Chloride Level 104 98-107 MMOL/L Carbon Dioxide Level 22 21-32 MMOL/L Anion Gap 13 5-14 MMOL/L Blood Urea Nitrogen 33 H 7-18 MG/DL Creatinine 1.81 H 0.60-1.30 MG/DL Estimat Glomerular Filtration Rate 38 BUN/Creatinine Ratio 18 Glucose Level 400 H 70-105 MG/DL Calcium Level 8.7 8.5-10.1 MG/DL Corrected Calcium 8.8 8.5-10.1 MG/DL Magnesium Level 1.9 1.6-2.4 MG/DL Total Bilirubin 0.5 0.1-1.0 MG/DL Aspartate Amino Transf (AST/SGOT) 19 5-34 U/L Alanine Aminotransferase (ALT/SGPT) 9 0-55 U/L Alkaline Phosphatase 80 40-136 U/L Lactate Dehydrogenase 231 H 125-220 U/L Total Creatine Kinase 225 H 30-200 U/L Creatine Kinase MB 12.1 *H <6.6 NG/ML Myoglobin 1424.4 H 10.0-92.0 NG/ML Troponin I 0.959 *H <0.028 NG/ML C-Reactive Protein High Sensitivity 4.77 H 0.00-0.50 MG/DL B-Type Natriuretic Peptide 1101.4 H <100.0 PG/ML Total Protein 7.7 6.4-8.2 GM/DL Albumin 3.9 3.2-4.5 GM/DL Procalcitonin 0.12 H <0.10 NG/ML Coronavirus 2019 (GEOVANNI) Positive H Negative Blood Gas Puncture Site R RAD Blood Gas Patient Temperature 36.1 Arterial Blood pH 7.34 *L 7.37-7.43 Arterial Blood Partial Pressure CO2 44 35-45 MMHG Arterial Blood Partial Pressure O2 67 L 79-93 MMHG Arterial Blood HCO3 24 23-27 MMOL/L Arterial Blood Total CO2 25.2 21.0-31.0 MMOL/L Arterial Blood Oxygen Saturation 94 94-100 % Arterial Blood Base Excess -1.3 -2.5-2.5 MMOL/L Al Test YES-POS Blood Gas Ventilator Setting NO Blood Gas Inspired Oxygen 15L Lactic Acid Level 1.45 0.50-2.00 MMOL/L My Orders Orders - AILYN MARKS DO Ed Iv/Invasive Line Start (04/16/20 03:51) Ekg Tracing (04/16/20 03:51) O2 (04/16/20 03:51) Monitor-Rhythm Ecg Trace Only (04/16/20 03:51) Chest 1 View, Ap/Pa Only (04/16/20 03:51) Arterial Blood Gas (04/16/20 03:51) BNP (04/16/20 03:51) Cbc With Automated Diff (04/16/20 03:51) Comprehensive Metabolic Panel (04/16/20 03:51) Creatine Kinase (04/16/20 03:51) Creatine Kinase Mb (04/16/20 03:51) Hs C Reactive Protein (04/16/20 03:51) Fibrin Degradation Products (04/16/20 03:51) Drug Screen Stat (Urine) (04/16/20 03:51) Lactic Acid Analyzer (04/16/20 03:51) Magnesium (04/16/20 03:51) Protime With Inr (04/16/20 03:51) Partial Thromboplastin Time (04/16/20 03:51) Ua Culture If Indicated (04/16/20 03:51) Blood Culture (04/16/20 03:51) Erythrocyte Sedimentation Rate (04/16/20 03:51) Myoglobin Serum (04/16/20 03:51) Troponin I (04/16/20 03:51) Procalcitonin (Pct) (04/16/20 03:51) LDH (04/16/20 03:51) Covid 19 Inhouse Test (04/16/20 03:51) Manual Differential (04/16/20 03:45) Arterial Blood Draw (04/16/20 04:03) Furosemide Injection (Lasix Injection) (04/16/20 05:00) Methylprednisolone Sod Succ (Solu-Medrol (04/16/20 05:00) Ceftriaxone For Iv Use (Rocephin For I (04/16/20 05:00) Azithromycin Injection (Zithromax Inject (04/16/20 05:00) Enoxaparin Injection (Lovenox Injection) (04/16/20 05:00) Aspirin Chewable Tablet (Baby Aspirin Ch (04/16/20 05:30) Medications Given in ED Current Medications Medications Dose Ordered Sig/Aris Route Start Time Stop Time Status Last Admin Dose Admin Aspirin 324 mg ONCE ONCE PO 04/16/20 05:30 04/16/20 05:31 DC 04/16/20 05:39 324 MG Azithromycin 500 mg/Sodium Chloride 250 ml @ 250 mls/hr ONCE ONCE IV 04/16/20 05:00 04/16/20 05:59 DC 04/16/20 05:13 250 MLS/HR Ceftriaxone Sodium 1000 mg/ Sterile Water 10 ml @ 200 mls/hr ONCE ONCE IV 04/16/20 05:00 04/16/20 05:02 DC 04/16/20 05:13 200 MLS/HR Enoxaparin Sodium 100 mg ONCE ONCE SC 04/16/20 05:00 04/16/20 05:01 DC 04/16/20 05:13 100 MG Furosemide 80 mg ONCE ONCE IVP 04/16/20 05:00 04/16/20 05:01 DC 04/16/20 05:13 80 MG Methylprednisolone Sodium Succinate 125 mg ONCE ONCE IVP 04/16/20 05:00 04/16/20 05:01 DC 04/16/20 05:13 125 MG Vital Signs/I&O 04/16/20 04/16/20 04/16/20 03:40 03:40 04:30 Temp 36.1 Pulse 123 116 Resp 20 19 B/P (MAP) 145/81 (102) Pulse Ox 100 100 95 O2 Delivery Non Rebreather Non Rebreather O2 Flow Rate 15.00 15.00 35.00 Capillary Refill : Progress Note : Progress Note PT PLACED IN ISOLATION ROOM AND PPE WORN AT ALL TIMES PT IMMEDIATELY PLACED ON BIPAP WITH IMPROVEMENT IN DYSPNEA, O2 SATS IN UPPER 90' S HEART RATE DOWN TO 110'S BP STABLE NO DETERIORATION IN PT'S CONDITION DURING ER STAY--FEELS BETTER RAPID COVID-19 TEST IS POSITIVE GIVEN ASPIRIN, LOVENOX, LASIX, SOLU-MEDROL, ROCEPHIN AND ZITHROMAX ECG Initial ECG Impression Date: Apr 16, 2020 Initial ECG Impression Time: 04:06 Initial ECG Rate: 115 Initial ECG Rhythm: S.Tach (WITH PVC'S) Initial ECG Impression: Nonspecific Changes Initial ECG Comparisson: Changed (MORE PROMINENT INFERIOR Q WAVES) Diagnostic Imaging Comments CXR--CHD AND RIGHT SIDED PNEUMONIA, PENDING RADIOLOGIST REVIEW Reviewed: Reviewed by Me Critical Care Note Critical Care Total Time (minutes) 30 Departure Communication (Admissions) 0515--SPOKE WITH DR. OSEGUERA, HOSPITALIST FOR [facility]. ACCEPTS PT FOR ADMIT. ORDERS NOTED. WILL CONSULT CARDIOLOGY AND E-ICU. Impression Primary Impression: Lab test positive for detection of COVID-19 virus Additional Impressions: RIGHT SIDED PNEUMONIA Acute on chronic respiratory failure CHF (congestive heart failure) Elevated troponin INSULIN DEPENDENT DIABETES MELLITUS POORLY CONTROLLED COPD (chronic obstructive pulmonary disease) Non-compliance Disposition: ADMITTED INPATIENT Condition: Improved Admissions Decision to Admit Reason: Admit from ER (General) Decision to Admit/Date: Apr 16, 2020 Time/Decision to Admit Time: 05:00 Departure-Patient Inst. Referrals: [facility] (PCP) Primary Care Physician JAN RUBI APRN (Family) Primary Care Physician AILYN MARKS DO Apr 16, 2020 03:59
[2020-04-16 04:05] LABS: BASOPHILS % (AUTO) 0 % (0-10); EOSINOPHILS % (AUTO) 0 % (0-10); HEMATOCRIT 31 % (40-54); HEMOGLOBIN 9.2 G/DL (13.3-17.7); LYMPHOCYTES # (AUTO) 0.6 X 10^3 (1.0-4.0); LYMPHOCYTES % (AUTO) 4 % (12-44); MEAN CORPUSCULAR HEMOGLOBIN 28 PG (25-34); MEAN CORPUSCULAR HGB CONC 30 G/DL (32-36); MEAN CORPUSCULAR VOLUME 93 FL (80-99); MEAN PLATELET VOLUME 9.5 FL (7.4-10.4); MONOCYTES # (AUTO) 0.7 X 10^3 (0.0-1.0); MONOCYTES % (AUTO) 5 % (0-12); NEUTROPHILS # (AUTO) 13.5 X 10^3 (1.8-7.8); NEUTROPHILS % (AUTO) 91 % (42-75); PLATELET COUNT 340 10^3/uL (130-400); WHITE BLOOD COUNT 14.9 10^3/uL (4.3-11.0)
[2020-04-16 04:22] LABS: ABG BASE EXCESS -1.3 MMOL/L (-2.5-2.5); ABG OXYGEN SATURATION 94 % (94-100); ABG PCO2 44 MMHG (35-45); ABG PO2 67 MMHG (79-93); ABG TCO2 25.2 MMOL/L (21.0-31.0)
[2020-04-16 04:23] LABS: ALLENS TEST YES-POS; INSPIRED O2 15L; PATIENT TEMP 36.1; VENTILATOR NO
[2020-04-16 04:25] LABS: ABG PH 7.34 (7.37-7.43)
[2020-04-16 04:29] LABS: ALBUMIN 3.9 GM/DL (3.2-4.5); FIBRIN DEGRADATION PRODUCTS 2.96 UG/ML (0.00-0.49); INR 1.1 (0.8-1.4); POTASSIUM 4.6 MMOL/L (3.6-5.0); PROTHROMBIN TIME PATIENT 14.3 SEC (12.2-14.7)
[2020-04-16 04:30] LABS: CALCIUM 8.7 MG/DL (8.5-10.1)
[2020-04-16 04:32] LABS: TOTAL PROTEIN 7.7 GM/DL (6.4-8.2)
[2020-04-16 04:33] LABS: BILIRUBIN,TOTAL 0.5 MG/DL (0.1-1.0)
[2020-04-16 04:35] LABS: CREATININE SERUM 1.81 MG/DL (0.60-1.30)
[2020-04-16 04:37] LABS: ANISOCYTOSIS SLIGHT; BAND NEUTROPHILS 2 %; BASOPHILS % (MANUAL) 0 %; EOSINOPHILS % (MANUAL) 0 %; HYPOCHROMASIA SLIGHT; LYMPHOCYTES % (MANUAL) 5 %; MONOCYTES % (MANUAL) 3 %; NEUTROPHILS % (MANUAL) 90 %; POLYCHROMASIA SLIGHT
[2020-04-16 04:38] LABS: ERYTHROCYTE SEDIMENTATION RATE 59 MM/HR (0-30); MAGNESIUM 1.9 MG/DL (1.6-2.4)
[2020-04-16] MEDS ORDERED: FUROSEMIDE 40 MG/4 ML INJ (LASIX) IVP ONE (05:00)
[2020-04-16] MEDS ORDERED: cefTRIAXone FOR IV USE 1,000 MG in WATER (STERILE) FOR INJECTION 10 ML IV ONE (05:00)
[2020-04-16] MEDS ORDERED: ENOXAPARIN 100 MG/1 ML (LOVENOX) SYR SC ONE (05:00)
[2020-04-16] MEDS ORDERED: AZITHROMYCIN INJECTION 500 MG in NS (IVPB) 250 ML IV ONE (05:00)
[2020-04-16] MEDS ORDERED: methylPREDNISolone 125 MG (Solu-MEDROL) VIAL IVP ONE (05:00)
[2020-04-16 05:14] LABS: CREATINE KINASE MB 12.1 NG/ML (<6.6)
[2020-04-16] MEDS ORDERED: ASPIRIN 81 MG CHEW (CHILDREN'S ASA) PO ONE (05:30)
[2020-04-16] MEDS ORDERED: NS IV 1000 ML 1,000 ML ONE ×2 (05:33→13:22)
[2020-04-16] MEDS ORDERED: NS IV 1000 ML 1,000 ML IV SCH (06:15)
--- NOTE | 2020-04-16 06:15 | NUR ---
APRIL FLORES admitted to room CU5-1, with an admitting diagnosis of COVID +, CHF, PNEUMONIA, ACUTE ON CHRONIC RESPIRATORY FAILURE, UNCONTROLLED DM, HYPOXIA , on 04/16/20 from ED via STRETCHER, accompanied by HOSPITAL STAFF. APRIL FLORES II introduced to surroundings, call light, bed controls, phone, TV, temperature control, lights, meal times, smoking policy, visitor policy, side rail policy, bathrooms and showers. Patient Rights given to patient in the handbook.APRIL FLORES II verbalizes understanding that [facility] is not responsible for the loss or damage to any personal effects or valuables that are kept in the patients posession during their hospitalization. APRIL FLORES II verbalizes understanding of Interdisciplinary Patient Education. Patient and/or family were informed about the Rapid Response Team and its purpose.
[2020-04-16] MEDS ORDERED: inSUlin ASPART (NovoLOG) 1 UNIT/0.01 ML (CHARGE PER UNIT) ONE (06:17)
--- NOTE | 2020-04-16 06:31 | Diagnostic Imaging Report ---
INDICATION: Congestive heart failure with right-sided pneumonia. Shortness of breath. Comparison is made to the prior study from March 05, 2020. FINDINGS: There is enlargement of the cardiac silhouette. There is increased prominence of the central pulmonary vascularity as well as some slight prominence of the peripheral septal lines compatible with interstitial edema. There is fluid within the right minor fissure. There are focal and asymmetric superimposed alveolar interstitial opacities demonstrated within the perihilar right lung which likely reflect superimposed pneumonia. There are small bilateral pleural effusions, greater on the right. There is no pneumothorax. IMPRESSION: 1. Enlarged cardiac silhouette with pulmonary vascular prominence suggesting interstitial edema related to the patient's history of CHF. 2. Focal asymmetric interstitial and alveolar opacities within the right lung. Given asymmetry, this could reflect a region of atelectasis though a superimposed pneumonia would be a consideration. 3. Right greater than left pleural effusions. Dictated by: Dictated on workstation # [id number]
[2020-04-16] MEDS: inSUlin ASPART (NovoLOG) 1 UNIT/0.01 ML (CHARGE PER UNIT) SC SCH ×5 (06:32→23:00)
--- NOTE | 2020-04-16 06:48 | History & Physical-Hospitalist ---
History of Present Illness HPI/Chief Complaint CC: Dyspnea with COVID-19 with NSTEMI HPI: This is a 64yoWM known to me from admit 6 weeks ago after NSTEMI who presents to the ER with fever and dyspnea and COVID swabbed +. Patient had just returned from a family reunion in [place] and had been non-compliant with OAC and Plavix. Patient is now off biPAP and on O2 BNC. Cardiac cath performed with required stent in RCA. Patient talks on his cell phone most of the time I am in the room wearing PPE. Abx maintained and Decadron. Convalescent Plasma is ordered. Spoke to [facility] and they recommended Remdesivir due to increase complexity of the case and the fact that plasma has not arrived yet. Patient required Ativan to calm him due to severe agitation. ABG reviewed. Source: patient, RN/MD Exam Limitations: no limitations Date Seen 04/16/20 Time Seen by a Provider: 10:30 Attending Physician Lorraine Guzman DO [facility] Referring Physician Date of Admission Apr 16, 2020 at 05:30 Home Medications & Allergies Home Medications Reviewed patient Home Medication Reconciliation performed by pharmacy medication reconciliations cartography/mapping technician and/or nursing. Patients Allergies have been reviewed. Allergies Allergies Coded Allergies No Known Drug Allergies (Unverified02/07/13) Past Zadrsxq-Nxxejt-Slzczr Hx Past Med/Social Hx: Reviewed Nursing Past Med/Soc Hx, Reviewed and Corrections made Patient Social History Marrital Status: single Employed/Student: unemployed Alcohol Use: Denies Use Recreational Drug Use: Yes Drug of Choice: THC Smoking Status: Former Smoker Former Smoker, Quit: Mar 19, 2020 Type Used: Cigarettes 2nd Hand Smoke Exposure: Yes Recent Foreign Travel: No Contact w/other who traveled: No Recent Hopitalizations: No Recent Infectious Disease Expo: No Immunizations Up To Date Tetanus Booster (TDap): Unknown Pediatric: No Date of Pneumonia Vaccine: Sep 09, 2017 Date of Influenza Vaccine: Sep 17, 2017 Seasonal Allergies Seasonal Allergies: No Past Medical History Surgeries: Abdominal, Cardiac, Coronary Stent Respiratory: COPD, Pneumonia Currently Using CPAP: No Currently Using BIPAP: No Cardiac: Atrial Fibrillation, Chronic Edema/Swelling, Coronary Artery Disease, Heart Attack, High Cholesterol, Hypertension Neurological: Neuropathy Reproductive: No Sexually Transmitted Disease: No HIV/AIDS: No Genitourinary: Renal Failure Gastrointestinal: Abdominal Hernia, Pancreatitis Endocrine: Diabetes, Insulin dep Psychosocial: Anxiety, Depression History of Blood Disorders: No Adverse Reaction to Blood [place]air: No Family History Cardiovascular disease G8 SISTER Diabetes mellitus 19 MOTHER G8 SISTER FH: lymphoma 19 FATHER Review of Systems Constitutional: see HPI, malaise, weakness Respiratory: cough, dyspnea on exertion, short of breath Cardiovascular: chest pain Physical Exam Physical Exam Vital Signs Vital Signs - First Documented 04/16/20 04/16/20 03:40 06:15 Temp 36.1 Pulse 123 Resp 20 B/P (MAP) 145/81 (102) Pulse Ox 100 O2 Delivery Non Rebreather O2 Flow Rate 15.00 FiO2 35 Capillary Refill : Less Than 3 Seconds Height, Weight, BMI Height: 5'11.00" Weight: 200lbs. 4.0oz. 90.192643nh; 29.00 BMI Method:Stated General Appearance: No Apparent Distress, Anxious, Chronically ill, Obese Eyes: Right Eye Normal Inspection, Right Eye PERRL HEENT: PERRL/EOMI, Normal ENT Inspection, Pharynx Normal, Moist Mucous Membranes Neck: Full Range of Motion, Normal Inspection, Non Tender Respiratory: Chest Non Tender, No Accessory Muscle Use, No Respiratory Distress, Crackles, Decreased Breath Sounds, Wheezing Cardiovascular: Regular Rate, Rhythm, No Edema, No Gallop, No JVD, No Murmur, Normal Peripheral Pulses Gastrointestinal: Normal Bowel Sounds, No Organomegaly, No Pulsatile Mass, Non Tender, Soft Back: Normal Inspection, No CVA Tenderness, No Vertebral Tenderness Extremity: Normal Capillary Refill, Normal Inspection, Normal Range of Motion, Non Tender, No Calf Tenderness, No Pedal Edema Neurologic/Psychiatric: Alert, Oriented x3, No Motor/Sensory Deficits, Normal Mood/Affect, shield operator II-XII Norm as Tested Skin: Normal Color, Warm/Dry Lymphatic: No Adenopathy Results Results/Procedures Labs Laboratory Tests 04/16/20 03:45 Patient resulted labs reviewed. Assessment/Plan Admission Diagnosis Assessment: Respiratory failure on bipap COVID 19 + Hypoxia NSTEMI s/p cardiac cath today with stent placement in RCA Non-compliance with OAC and Plavix CHF Plan: ICU Stent per cath IV abx Plasma Remdesivir FROM MY H&P/DC 03/07/20 (1) NSTEMI (non-ST elevated myocardial infarction) Status: Acute (2) HTN (hypertension) Status: Acute (3) Hypoxia Status: Acute (4) CHF (congestive heart failure) Status: Acute (5) IDDM (insulin dependent diabetes mellitus) Status: Acute Hospital Course Date of Admission: Mar 06, 2020 at 00:40 Admission Diagnosis : Family Physician/Provider: Nel Robles Aprn Date of Discharge: 03/07/20 Discharge Diagnosis: Assessment: Chest pain NSTEMI HTN COPD Smoker COVID swabbed Plan: Cardiology appreciated COVID swab pending Hospital Course: Hospital Course: Pt had a short hospital course. He was admitted for chest pain and Non STEMI. He was a covid swab which was negative and he was treated for volume overload with IV Lasix and hypoxia did resolve. Overall pt did very well, he felt good enough to be going home and he will be going home on home O2 at 2.5 liters on exertion and will have close follow up with cardiology and [facility]. His Covid swab was negative. Admission Status: Inpatient Order (span 2 midnights) Reason for Inpatient Admission: Resp failure Diagnosis/Problems Diagnosis/Problems (1) Acute on chronic respiratory failure Status: Acute (2) Lab test positive for detection of COVID-19 virus Status: Acute (3) Elevated troponin Status: Acute (4) Non-compliance Status: Acute (5) CHF (congestive heart failure) Status: Acute (6) COPD (chronic obstructive pulmonary disease) Status: Acute (7) Diastolic heart failure (8) Non-insulin dependent type 2 diabetes mellitus (9) CAD (coronary artery disease) (10) Oxygen dependent Status: Acute (11) NSTEMI (non-ST elevated myocardial infarction) Status: Acute (12) Hypoxia Status: Acute (13) Elevated troponin Status: Acute LORRAINE GUZMAN DO Apr 16, 2020 06:48
[2020-04-16] MEDS ORDERED: NS (IVPB) 250 ML ONE (06:52)
[2020-04-16] MEDS ORDERED: VANCOMYCIN 1000 MG/VIAL ONE (06:52)
[2020-04-16 06:58] LABS: ABG OXYGEN SATURATION 89 % (94-100); ABG PCO2 45 MMHG (35-45); ABG PO2 59 MMHG (79-93); ABG TCO2 25.6 MMOL/L (21.0-31.0)
[2020-04-16 07:00] LABS: ALLENS TEST YES-POS; INSPIRED O2 35%; PATIENT TEMP 36.1; VENTILATOR NO
[2020-04-16] MEDS: VANCOMYCIN INJECTION 1,000 MG in NS (IVPB) 250 ML IV SCH ×2 (07:03→08:25)
[2020-04-16 07:04] LABS: ABG PH 7.34 (7.37-7.43)
--- NOTE | 2020-04-16 07:53 | NUR ---
INFORMED DR. CID OF CONSULT.
[2020-04-16 08:16] LABS: BILIRUBIN,URINE NEGATIVE (NEGATIVE); CLARITY,URINE CLEAR; COLOR,URINE YELLOW; GLUCOSE, URINE (UA) 2+ (NEGATIVE); KETONES,URINE NEGATIVE (NEGATIVE); LEUKOCYTE ESTERASE ,URINE NEGATIVE (NEGATIVE); NITRITE,URINE NEGATIVE (NEGATIVE); PH,URINE 5.5 (5-9); PROTEIN,URINE 2+ (NEGATIVE)
[2020-04-16 08:26] LABS: BACTERIA,URINE NEGATIVE /HPF; RBC,URINE 0-2 /HPF; RENAL EPITHELIAL CELLS,URINE RARE /HPF; SQUAMOUS EPITHELIAL CELL,UR RARE /HPF
[2020-04-16 08:30] LABS: AMPHETAMINE SCREEN, URINE NEGATIVE (NEGATIVE); BENZODIAZEPINES SCREEN URINE NEGATIVE (NEGATIVE); COCAINE SCREEN URINE NEGATIVE (NEGATIVE)
[2020-04-16 08:31] LABS: BARBITURATE SCREEN URINE NEGATIVE (NEGATIVE); CANNABINOID SCREEN, URINE POSITIVE (NEGATIVE); METHADONE STAT NEGATIVE (NEGATIVE); METHAMPHETAMINE SCREEN URINE S NEGATIVE (NEGATIVE); OPIATE SCREEN URINE NEGATIVE (NEGATIVE); OXYCODONE STAT NEGATIVE (NEGATIVE); PROPOXYPHENE STAT NEGATIVE (NEGATIVE); TRICYCLIC ANTIDEPRESSANTS SCRE NEGATIVE (NEGATIVE)
--- NOTE | 2020-04-16 09:55 | Diagnostic Imaging Report ---
INDICATION: Pneumonia. Comparison made with prior examination from 04/16/2020. FINDINGS: There is cardiomegaly. There are bilateral pulmonary infiltrates. There is some venous congestion. There is no pleural effusion or pneumothorax. The mediastinum is unremarkable. IMPRESSION: Unchanged bilateral pulmonary infiltrates with some central pulmonary venous congestion. Dictated by: Dictated on workstation # [id number]
[2020-04-16] MEDS ORDERED: CLOPIDOGREL 300 MG (PLAVIX) TABLET PO ONE (11:15)
[2020-04-16] MEDS ORDERED: HEParin (CATH LAB) 2,000 ML IV ONE (12:02)
[2020-04-16] MEDS ORDERED: LIDOCAINE 1% INJ 20 ML 20 ML VIAL ONE (13:19)
[2020-04-16] MEDS ORDERED: NITRO DRIP 25000 MCG/D5W 250 ML IV ONE (13:22)
[2020-04-16] MEDS ORDERED: EPTIFIBATIDE BOLUS 20 ML IV ONE (13:22)
[2020-04-16] MEDS ORDERED: HEParin 1000 UNIT/ML (10ML VIAL) FOR BOLUS ONE (13:22)
[2020-04-16] MEDS ORDERED: MIDAZOLAM 5 MG/5 ML (VERSED) VIAL ONE (14:32)
[2020-04-16] MEDS ORDERED: VERAPAMIL 5 MG/2 ML (CALAN) VIAL IV ONE (14:33)
[2020-04-16] MEDS ORDERED: fentaNYL INJECTION 100 MCG/2 ML AMP ONE (14:33)
--- NOTE | 2020-04-16 14:49 | NUR ---
PT LEFT TO GO TO [employer] VIA BED W/ STAFF.
--- NOTE | 2020-04-16 14:58 | Consultation-Cardiology ---
HPI-Cardiology Cardiology Consultation: Date of Consultation 04/16/20 Date of Admission Attending Physician Lorraine Guzman DO Admitting Physician [place] Consulting Physician Ignacio FLORENTINO MD HPI: Time Seen by a Provider: 11:30 Chief Complaint: Shortness of breath This is a 64-year-old gentleman who presents with severe shortness of breath. Patient has history of COPD and is on home oxygen. Patient has previous history of PCI done on 02/23/2020. He also has history of paroxysmal atrial fibrillation on Xarelto. Active smoker. Also has history of marijuana and alcohol use. According to the patient and he was in the family get together in [place]. Somebody there had pneumonia according to the patient. Patient tells me that when he gets short of breath he develops chest heaviness as well. He is in mild respiratory distress during my visit. Review of Systems-Cardiology Review of Systems Constitutional: As described under HPI; No As described under HPI, No no symptoms reported, No chills, No fever, No lightheadedness Eyes: No As described under HPI, No no symptoms reported, No blindness, No blurred vision, No contact lenses, No drainage, No decreased acuity, No foreign body sensation, No pain, No vision change Ears/Nose/Throat: No As described under HPI, No no symptoms reported, No chronic hearing loss, No ear discharge, No ear pain, No nasal drainage, No ulcerations Respiratory: No no symptoms reported; As described under HPI; No As described under HPI, No cough, No orthopnea; shortness of breath; No SOB with excertion Cardiovascular: No no symptoms reported; As described under HPI; No As described under HPI; chest pain; No edema, No irregular heart rate, No lightheadedness, No palpitations Gastrointestinal: No no symptoms reported, No As described under HPI, No abdomen distended, No abdominal pain, No blood streaked bowels, No constipation, No diarrhea, No nausea, No vomiting, No stool coloration changes Genitourinary: No As described under HPI, No burning, No dysuria, No discharge, No frequency, No flank pain, No hematuria, No urgency Skin: No rash, No skin related problems, No ulcerations Psychiatric/Neurological: No anxiety, No depression, No seizure, No focal weakness, No syncope Hematologic: No bleeding abnormalities GIT-Fawxco-Gqjclh Hx Patient Social History Alcohol Use: Past History Recreational Drug Use: Yes (THC) Drug of Choice: THC Smoking Status: Current Everyday Smoker Type Used: Cigarettes 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 Family Medical History Family History: Cardiovascular disease G8 SISTER Diabetes mellitus 19 MOTHER G8 SISTER FH: lymphoma 19 FATHER Allergies and Home Medications Allergies Coded Allergies: No Known Drug Allergies (Unverified , 02/07/13) Home Medications Amlodipine Besylate 5 Mg Tablet, 5 MG PO DAILY, (Reported) Atorvastatin Calcium 40 Mg Tablet, 40 MG PO DAILY, (Reported) Bupropion HCl 150 Mg Tablet.er, 150 MG PO DAILY, (Reported) Clopidogrel Bisulfate 75 Mg Tablet, 75 MG PO DAILY, (Reported) Fluticasone/Salmeterol 12 Gm Hfa.aer.ad, 0 PUFF IH RTBID Prescribed by: LORRAINE GUZMAN on 03/07/20 1135 Furosemide 80 Mg Tablet, 80 MG PO DAILY Take 1 pill BID for 2 days then 1 daily Prescribed by: LORRAINE GUZMAN on 03/07/20 1135 Gabapentin 600 Mg Tablet, 600 MG PO TID, (Reported) Glipizide 10 Mg Tablet, 10 MG PO DAILY, (Reported) Insulin Glargine,Hum.rec.anlog 100 Unit/1 Ml Vial, 18 UNIT SQ DAILY, (Reported) Lisinopril 40 Mg Tablet, 40 MG PO DAILY, (Reported) Metoprolol Tartrate 50 Mg Tablet, 50 MG PO BID, (Reported) Rivaroxaban 20 Mg Tablet, 20 MG PO DAILY, (Reported) Patient Home Medication List Home Medication List Reviewed: Yes Physical Exam-Cardiology Physical Exam Vital Signs/I&O 04/16/20 04/16/20 04/16/20 04/16/20 03:40 03:40 04:30 05:35 Temp 36.1 36.9 Pulse 123 116 117 Resp 20 19 16 B/P (MAP) 145/81 (102) 135/89 Pulse Ox 100 100 95 96 O2 Delivery Non Rebreather Non Rebreather NIV Bilevel O2 Flow Rate 15.00 15.00 35.00 04/16/20 04/16/20 04/16/20 04/16/20 06:15 06:15 07:00 07:15 Temp 36.1 Pulse 111 111 Resp 20 19 B/P (MAP) 126/83 (97) Pulse Ox 94 98 99 O2 Delivery NIV Bilevel NIV Bilevel O2 Flow Rate 25.00 35.00 FiO2 35 04/16/20 04/16/20 04/16/20 04/16/20 07:53 07:59 08:00 08:00 Temp 35.3 Pulse 117 121 Resp 25 B/P (MAP) 160/83 (108) Pulse Ox 95 O2 Delivery NIV Bilevel NIV Bilevel O2 Flow Rate 25.00 FiO2 25 04/16/20 04/16/20 04/16/20 04/16/20 09:00 10:00 10:45 11:00 Pulse 110 100 104 Resp 21 22 49 B/P (MAP) 154/77 (102) 121/103 (109) 130/113 (119) Pulse Ox 93 97 96 97 O2 Delivery NIV Bilevel NIV Bilevel Nasal Cannula NIV Bilevel O2 Flow Rate 25.00 25.00 3.00 3.00 04/16/20 04/16/20 04/16/20 04/16/20 11:54 12:00 12:00 12:01 Temp 35.6 35.6 Pulse 112 105 Resp 36 B/P (MAP) 141/97 (112) Pulse Ox 92 97 O2 Delivery NIV Bilevel NIV Bilevel O2 Flow Rate 3.00 FiO2 25 32 Capillary Refill : Less Than 3 Seconds Constitutional: appears stated age, AAO x 3, apparent distress, well-developed, well-nourished HEENT: PERRL; No discharge; hearing is well preserved, oral hygience is good; No ulceration, No xanthelasmas are seen Neck: No carotid bruit; carotid pulses are 2 + bilaterally Respiratory: accessory muscle use, respiratory distress, chest is bilaterally symmetric, other (decreased breath sounds bilaterally.) Cardiovascular: regular rate-rhythm, tachycardia, S1 and S2; No diastolic murm ur, No systolic murmur Gastrointestinal: soft, audible bowel sounds; No spleenomegaly Rectal: deferred Extremities: normal range of motion, non-tender, normal inspection, pedal edema; No clubbing, No cyanosis, No significant edema Neurologic/Psychiatric: no motor/sensory deficits, alert, normal mood/affect, oriented x 3, power is 5/5 both on sides Skin: normal color, warm/dry; No rash, No ulcerations Data Review Labs Laboratory Tests 04/16/20 03:45: White Blood Count 14.9H, Red Blood Count 3.34L, Hemoglobin 9.2L, Hematocrit 31L, Mean Corpuscular Volume 93, Mean Corpuscular Hemoglobin 28, Mean Corpuscular Hemoglobin Concent 30L, Red Cell Distribution Width 16.6H, Platelet Count 340, Mean Platelet Volume 9.5, Neutrophils (%) (Auto) 91H, Lymphocytes (%) (Auto) 4L, Monocytes (%) (Auto) 5, Eosinophils (%) (Auto) 0, Basophils (%) (Auto) 0, Neutrophils # (Auto) 13.5H, Lymphocytes # (Auto) 0.6L, Monocytes # (Auto) 0.7, Eosinophils # (Auto) 0.0, Basophils # (Auto) 0.0, Neutrophils % (Manual) 90, Lymphocytes % (Manual) 5, Monocytes % (Manual) 3, Eosinophils % (Manual) 0, Basophils % (Manual) 0, Band Neutrophils 2, Polychromasia SLIGHT, Hypochromasia SLIGHT, Anisocytosis SLIGHT, Macrocytosis SLIGHT, Erythrocyte Sedimentation Rate 59H, Prothrombin Time 14.3, INR Comment 1.1, Activated Partial Thromboplast Time 29, D-Dimer 2.96H, Sodium Level 139, Potassium Level 4.6, Chloride Level 104, Carbon Dioxide Level 22, Anion Gap 13, Blood Urea Nitrogen 33H, Creatinine 1.81H , Estimat Glomerular Filtration Rate 38, BUN/Creatinine Ratio 18, Glucose Level 400H, Calcium Level 8.7, Corrected Calcium 8.8, Magnesium Level 1.9, Total Bilirubin 0.5, Aspartate Amino Transf (AST/SGOT) 19, Alanine Aminotransferase (ALT/SGPT) 9, Alkaline Phosphatase 80, Lactate Dehydrogenase 231H, Total Creatine Kinase 225H, Creatine Kinase MB 12.1*H, Myoglobin 1424.4H, Troponin I 0.959*H, C-Reactive Protein High Sensitivity 4.77H, B-Type Natriuretic Peptide 1101.4H, Total Protein 7.7, Albumin 3.9, Procalcitonin 0.12H 04/16/20 03:50: Coronavirus 2019 (GEOVANNI) PositiveH 04/16/20 04:03: Blood Gas Puncture Site R RAD, Blood Gas Patient Temperature 36.1, Arterial Blood pH 7.34*L, Arterial Blood Partial Pressure CO2 44, Arterial Blood Partial Pressure O2 67L, Arterial Blood HCO3 24, Arterial Blood Total CO2 25.2, Arterial Blood Oxygen Saturation 94, Arterial Blood Base Excess -1.3, Al Test YES-POS, Blood Gas Ventilator Setting NO, Blood Gas Inspired Oxygen 15L 04/16/20 04:05: Lactic Acid Level 1.45 04/16/20 06:45: Blood Gas Puncture Site R RAD, Blood Gas Patient Temperature 36.1, Arterial Blood pH 7.34*L, Arterial Blood Partial Pressure CO2 45, Arterial Blood Partial Pressure O2 59L, Arterial Blood HCO3 24, Arterial Blood Total CO2 25.6, Arterial Blood Oxygen Saturation 89L, Arterial Blood Base Excess -1.0, Al Test YES- POS, Blood Gas Ventilator Setting NO, Blood Gas Inspired Oxygen 35% 04/16/20 07:06: Troponin I 33.961*H 04/16/20 07:55: Urine Color YELLOW, Urine Clarity CLEAR, Urine pH 5.5, Urine Specific [place] >=1.030, Urine Protein 2+H, Urine Glucose (UA) 2+H, Urine Ketones NEGATIVE, Urine Nitrite NEGATIVE, Urine Bilirubin NEGATIVE, Urine Urobilinogen 0.2, Urine Leukocyte Esterase NEGATIVE, Urine RBC (Auto) 2+H, Urine RBC 0-2, Urine WBC NONE, Urine Squamous Epithelial Cells RARE, Urine Renal Epithelial Cells RARE, Urine Crystals NONE, Urine Bacteria NEGATIVE, Urine Casts PRESENT, Urine Hyaline Casts 5-10H, Urine Mucus NEGATIVE, Urine Culture Indicated NO, Urine Opiates Screen NEGATIVE, Urine Oxycodone Screen NEGATIVE, Urine Methadone Screen NEGATIVE, Urine Propoxyphene Screen NEGATIVE, Urine Barbiturates Screen NEGATIVE, Ur Tricyclic Antidepressants Screen NEGATIVE, Urine Phencyclidine Screen NEGATIVE, Urine Amphetamines Screen NEGATIVE, Urine Methamphetamines Screen NEGATIVE, Urine Benzodiazepines Screen NEGATIVE, Urine Cocaine Screen NEGATIVE, Urine Cannabinoids Screen POSITIVEH 04/16/20 11:53: Glucometer 376H ECG Impression ECG Initial ECG Rhythm: S.Tach Initial ECG Impression: Nonspecific Changes A/P-Cardiology Assessment/Admission Diagnosis Acute respiratory failure, Severe COVID-19 infection, Acute congestive heart failure, Non-STEMI, Sepsis Plan This is a complicated and sick patient with severe COVID-19 infection, sepsis and acute respiratory failure on BiPAP therapy. The patient does have history of underlying COPD. He is on broad-spectrum antibiotics. Defer to the primary team. Patient also has history of PCI. Apparently he missed doses of Plavix. Pr esents with shortness of breath and chest heaviness. Troponin is 33 which is clearly not due to COVID-19 pneumonia. My concern is that this patient has an occluded stent due to either stent thrombosis due to noncompliance from Plavix. Therefore I have discussed at length with my catheter team as well as the patient and recommended that we do coronary angiography with possible in tervention. We will have to take full COVID-19 precautions. 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 Paroxysmal atrial fibrillation, needs to be on Xarelto. Acute congestive heart failure. We will not perform an echocardiogram due to active COVID infection. Treat with Lasix. Critically ill patient; Over 30 minutes were spent taking care of this patient and reviewing the chart, discussing with all the team and coming up with the plan. Thank you for your consultation. Please call me if you have any questions. Araceli Florentino MD, FACP, FACC, FSCAI, FHRS, CCDS Interventional Cardiology Cardiac Electrophysiology Vascular Medicine and Endovascular Interventions Clinical Quality Measures DVT/VTE Risk/Contraindication: Risk Factor Score Per Nursin RFS Level Per Nursing on Admit: 4+=Very High Ignacio FLORENTINO MD Apr 16, 2020 14:58
--- NOTE | 2020-04-16 16:10 | NUR ---
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 PT ON BIPAP AT 30%, LABORED BREATHING AND UNABLE TO LAY FLAT. THIS RN NOTIFIED DR OSEGUERA, NEW ORDERS RECEIVED FOR ABG AND ATIVAN 0.5MG X1. THIS RN AND PERCY RT AT BEDSIDE. BIPAP SETTINGS ADJUSTED BY RT. ONCE ABG RESULTS WERE BACK, THIS RN HAD TELE ICU CAMERA IN. BIPAP SETTINGS READJUSTED AND NEW ORDERS RECEIVED FOR REPEAT ABG IN 1 HR. PT SITTING UP ON SIDE OF BED, CONTINUES TO BE SOB BUT IMPROVING.
[2020-04-16] MEDS ORDERED: LORazepam INJ 2 MG/ML (ATIVAN) VIAL ONE (16:12)
--- NOTE | 2020-04-16 16:20 | Cardiac Procedure Note-CS/ASA ---
Pre-Procedure Note Pre-Op Procedure Note H&P Reviewed The H&P was reviewed, patient examined and no changes noted. Date H&P Reviewed: Apr 16, 2020 Time H&P Reviewed: 12:00 Conscious Sedation Pre-Proced Time 12:00 ASA Score 3 For ASA 3 and 4: Consider anesthesia and medical clearance. Also, for patients with a history of failed moderate sedation consider anesthesia. Airway Lungs Heart ASA score ASA 1: a normal healthy patient ASA 2: a patient with a mild systemic disease (mid diabetes, controlled hypertension, obesity ASA 3: a patient with a severe systemic disease that limits activity (angina, COPD, prior Myocardial infarction) ASA 4: a patient with an incapacitating disease that is a constant threat to life (CHF, renal failure) ASA 5: a moribund patient not expected to survive 24 hrs. (ruptured aneurysm) ASA 6: a declared brain- patient whose organs are being harvested. For emergent operations, add the letter E after the classification Mallampati Classification Grade 1 Sedation Plan Analgesia, Amnesia, Plan communicated to team members, Discussed options with patient/fam, Discussed risks with patient/fam The patient is an appropriate candidate to undergo the planned procedure, sedation, and anesthesia. The patient immediately re-assessed prior to indication. Ignacio CID MD Apr 16, 2020 16:20
--- NOTE | 2020-04-16 16:20 | Coronary Angiography & PCI ---
Coronary Angiography & PCI DATE OF PROCEDURE: 04/16/20 INDICATION: NSTEMI, Acute CHF. PREOPERATIVE DIAGNOSIS: NSTEMI, Acute CHF. POSTOPERATIVE DIAGNOSIS: Severe OM1 stenosis treated with successful BRAN. HISTORY: 64 year old male with previous history of PCI to LAD, also has history of active smoking. He presents with severe respiratory failure with COVID 19 sepsis. Acute CHF, NSTEMI, MORRIS. Troponin 33 (normal < 0.028) therefore unlikely due to Type II MA from respiratory failure since troponin is significantly higher. Therefore, the patient was scheduled for coronary angiography. PROCEDURES PERFORMED: 1.Coronary angiography. 2.Left heart catheterization. 3.PCI to the OM1 with BRAN. COMPLICATIONS: None. SPECIMENS: None. ESTIMATED BLOOD LOSS: 10 mL ANESTHESIA: Conscious sedation ANTICOAGULATION: IV heparin CONTRAST: 120 mL. FLUOROSCOPY: 10 minutes. FLOUROSCOPY DOSE: 1634 mgy. PROCEDURE DETAILS: The patient is a 64 male and was brought to the label fuser tender after informed consent was taken. All the risks and complications were explained in detail; this included the risk of bleeding, vascular damage, stroke, MA and even . The patient was draped and prepped in the usual sterile fashion. Access was gained in the right radial artery with a 6 Filipino sheath. Coronary angiography and left heart catheterization was performed with the [place] catheter. FINDINGS: 1.Left main: Patent. 2.LAD: Patent LAD stent. 3.Left circumflex artery: Severe first OM disease. Stenosis severity 80 percent. Haziness noted. 4.RCA: Chronic total occlusion; known previously. Supplied by collaterals from [id number]. 5.Left heart catheterization: LV pressure 116/28 mmHg. LVEDP 40 mmHg. LVEF 35 percent with global hypokinesis. No gradient across the aortic valve. RECOMMENDATIONS: PCI to OM1 is recommended. INTERVENTION DETAILS: EBU 3.5 guide catheter, whisper extra-support guidewire, IV heparin for anticoagulation. ACT 217 seconds. Integrilin double bolus given. The lesion was crossed with the whisper wire and the tip of the wire was placed in OM1. Direct stenting with a Familybuilderrra 2.75 x 23 mm stent was done at 16 marjan for 21 seconds. Pinching of the AV groove artery was noted. Improved with 200 g of intracoronary nitroglycerin. I then took a BMW wire and placed it in OM1 and took the whisper wire and tried to cross into the AV groove artery. Initially was difficult, however after a couple of attempts I was able to cross into the AV groove artery. I then took an emerge 2.0 x 15 mm balloon and tried to cross through the struts into the AV groove artery but was unable to. At this point in time the patient was also becoming very restless, he was on a BiPAP and having difficulty breathing. The ostium of the AV groove artery was pinched around 50-60 percent, with YA-[address]-T changes, patient was not complaining of any chest pain. Therefore I decided to stop at this point in time. Both the wires were taken back post-angiogram showed excellent results. YA-3 flow with no residue stenosis in the OM 1. Radial band done. CONCLUSIONS: 1. Acute non-STEMI, successful PCI with drug-eluting stent to OM1. Continue dual antiplatelet therapy. 2. Acute systolic/diastolic congestive heart failure. Aggressive IV diuresis is recommended. 3. Critically ill patient. Araceli Florentino MD, FACP, FACC, [facility] Interventional Cardiology Ignacio FLORENTINO MD Apr 16, 2020 16:20
[2020-04-16] MEDS ORDERED: LORazepam INJ 2 MG/ML (ATIVAN) VIAL IVP ONE (16:30)
[2020-04-16] MEDS ORDERED: PATIENT MAY USE OWN MEDS, ALL PO SCH (16:30)
[2020-04-16] MEDS: NS IV 1000 ML 1,000 ML IV SCH (16:31)
[2020-04-16] MEDS: RT-ALBUTEROL INHALER HFA (VENTOLIN HFA) 18 GM IH SCH ×2 (16:43→18:30)
[2020-04-16 16:46] LABS: ABG BASE EXCESS -4.1 MMOL/L (-2.5-2.5); ABG OXYGEN SATURATION 92 % (94-100); ABG PCO2 52 MMHG (35-45); ABG PO2 70 MMHG (79-93)
[2020-04-16 16:50] LABS: ABG PH 7.25 (7.37-7.43); ALLENS TEST POSITIVE; INSPIRED O2 30%; PATIENT TEMP 36; VENTILATOR NO
[2020-04-16] MEDS ORDERED: REMDESIVIR INJ (NON-FORMULARY) 100 MG in NS (IVPB) 230 ML IV SCH (17:00)
[2020-04-16] MEDS ORDERED: REMDESIVIR INJ (NON-FORMULARY) 200 MG in NS (IVPB) 210 ML IV NR (17:00)
[2020-04-16] MEDS ORDERED: REMDESIVIR INJ (NON-FORMULARY) 200 MG in NS (IVPB) 210 ML IV ONE (17:00)
--- NOTE | 2020-04-16 17:01 | NUR ---
PT GIVES VERBAL CONSENT FOR IV REMDESIVIR TREATMENT.
[2020-04-16 18:27] LABS: ABG BASE EXCESS -2.9 MMOL/L (-2.5-2.5); ABG OXYGEN SATURATION 94 % (94-100); ABG PCO2 39 MMHG (35-45); ABG PH 7.36 (7.37-7.43); ABG PO2 69 MMHG (79-93); ABG TCO2 23.1 MMOL/L (21.0-31.0)
[2020-04-16 18:28] LABS: ALLENS TEST POSITIVE; INSPIRED O2 30% BIPAP; PATIENT TEMP 36.1; VENTILATOR NO
--- NOTE | 2020-04-16 18:41 | NUR ---
REPEAT ABG RESULTS GIVEN TO TELE ICU, NO ADDITIONAL ORDERS RECEIVED.
[2020-04-16] MEDS: ENOXAPARIN 100 MG/1 ML (LOVENOX) SYR SC SCH (20:40)
[2020-04-17] VITALS (12 sets, daily range): BP systolic 101–160; BP diastolic 50–105
[2020-04-17 02:50] LABS: BASOPHILS % (AUTO) 0 % (0-10); EOSINOPHILS % (AUTO) 0 % (0-10); HEMATOCRIT 30 % (40-54); LYMPHOCYTES % (AUTO) 6 % (12-44); MEAN CORPUSCULAR HEMOGLOBIN 28 PG (25-34); MEAN CORPUSCULAR HGB CONC 30 G/DL (32-36); MEAN CORPUSCULAR VOLUME 92 FL (80-99); MEAN PLATELET VOLUME 9.5 FL (7.4-10.4); MONOCYTES # (AUTO) 1.4 X 10^3 (0.0-1.0); MONOCYTES % (AUTO) 8 % (0-12); NEUTROPHILS # (AUTO) 14.8 X 10^3 (1.8-7.8); NEUTROPHILS % (AUTO) 86 % (42-75); PLATELET COUNT 312 10^3/uL (130-400); WHITE BLOOD COUNT 17.2 10^3/uL (4.3-11.0)
[2020-04-17] MEDS: NS IV 1000 ML 1,000 ML IV SCH (02:59)
[2020-04-17 03:03] LABS: POTASSIUM 4.7 MMOL/L (3.6-5.0)
[2020-04-17 03:04] LABS: CALCIUM 8.7 MG/DL (8.5-10.1)
[2020-04-17 03:08] LABS: CREATININE SERUM 1.64 MG/DL (0.60-1.30); PHOSPHORUS 3.2 MG/DL (2.3-4.7)
[2020-04-17 03:11] LABS: MAGNESIUM 2.1 MG/DL (1.6-2.4)
[2020-04-17 03:25] LABS: ABG OXYGEN SATURATION 96 % (94-100); ABG PCO2 39 MMHG (35-45); ABG PH 7.38 (7.37-7.43); ABG PO2 72 MMHG (79-93); ABG TCO2 23.8 MMOL/L (21.0-31.0)
[2020-04-17 03:26] LABS: ALLENS TEST YES-POS; INSPIRED O2 30%; PATIENT TEMP 35.9; VENTILATOR NO
[2020-04-17] MEDS: RT-ALBUTEROL INHALER HFA (VENTOLIN HFA) 18 GM IH SCH ×3 (03:50→14:10)
--- NOTE | 2020-04-17 04:35 | Pulmonary Consultation ---
History of Present Illness History of Present Illness Date Seen by Provider: Apr 17, 2020 Time Seen by Provider: 04:30 Date of Admission History of Present Illness 64yo with recent dx NSTEMI presented to ED 04/16 secondary to worsening dyspnea, and fever. Pt tested positive for COVID upon admission. He just returned from a family reunion in [place]. Decadron, Remdesivir, and Convalescent Plasma was ordered. I am consulted for ICU management. Allergies and Home Medications Allergies Coded Allergies: No Known Drug Allergies (Unverified , 02/07/13) Home Medications Amlodipine Besylate 5 Mg Tablet, 5 MG PO DAILY, (Reported) Atorvastatin Calcium 40 Mg Tablet, 40 MG PO DAILY, (Reported) Bupropion HCl 150 Mg Tablet.er, 150 MG PO DAILY, (Reported) Clopidogrel Bisulfate 75 Mg Tablet, 75 MG PO DAILY, (Reported) Fluticasone/Salmeterol 12 Gm Hfa.aer.ad, 0 PUFF IH RTBID Prescribed by: MAURICIO OSEGUERA on 03/07/20 1135 Furosemide 80 Mg Tablet, 80 MG PO DAILY Take 1 pill BID for 2 days then 1 daily Prescribed by: MAURICIO OSEGUERA on 03/07/20 1135 Gabapentin 600 Mg Tablet, 600 MG PO TID, (Reported) Glipizide 10 Mg Tablet, 10 MG PO DAILY, (Reported) Insulin Glargine,Hum.rec.anlog 100 Unit/1 Ml Vial, 18 UNIT SQ DAILY, (Reported) Lisinopril 40 Mg Tablet, 40 MG PO DAILY, (Reported) Metoprolol Tartrate 50 Mg Tablet, 50 MG PO BID, (Reported) Rivaroxaban 20 Mg Tablet, 20 MG PO DAILY, (Reported) Past Ypjaryu-Szvzdp-Nelpko Hx Past Med/Social Hx: Reviewed Nursing Past Med/Soc Hx, Reviewed and Corrections made Patient Social History Alcohol Use: Past History Recreational Drug Use: Yes (THC) Drug of Choice: THC Smoking Status: Current Everyday Smoker Type Used: Cigarettes 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) Recent Foreign Travel: No Contact w/Someone Who Travel: No Recent Infectious Disease Expo: No Recent Hopitalizations: No Physical Abuse: No Sexual Abuse: No Mistreated: No Fear: No Immunizations Up To Date Tetanus Booster (TDap): Unknown PED Vaccines UTD: No Date of Pneumonia Vaccine: Sep 09, 2017 Date of Influenza Vaccine: Sep 17, 2017 Seasonal Allergies Seasonal Allergies: No Past Medical History Surgeries: Yes (VENTRAL HERNIA 2012;CARDIAC CATH-STENTS X2 TO LAD,LAST STENT 02/23/20) Abdominal, Cardiac, Coronary Stent Respiratory: Yes (RESPIRATORY FAILURE, HOME 02 AT 2L/NC) COPD Currently Using CPAP: No Currently Using BIPAP: No Cardiac: Yes (CHF;PAROXYSMAL A FIB;CODED 09/16/17; NSTEMI 03/06/20;STENTS X2) Atrial Fibrillation, Chronic Edema/Swelling, Coronary Artery Disease, Heart Attack, High Cholesterol, Hypertension Neurological: Yes (PERIPHERAL NEUROPATHY) Neuropathy Reproductive Disorders: No Sexually Transmitted Disease: No HIV/AIDS: No Genitourinary: Yes (NO DIALYSIS) Renal Failure Gastrointestinal: Yes (S/P VENTRAL HERNIA REPAIR; CURRENT UMBILICAL HERNIA PRESENT) Abdominal Hernia, Pancreatitis Musculoskeletal: No Endocrine: Yes (NON COMPLAINT) Diabetes, Insulin dep HEENT: No Cancer: No Psychosocial: Yes Anxiety, Depression Integumentary: No Blood Disorders: No Adverse Reaction/Blood Tranf: No Family Medical History Cardiovascular disease G8 SISTER Diabetes mellitus 19 MOTHER G8 SISTER FH: lymphoma 19 FATHER SOCIAL HISTORY: -HISTORY OF ETOH ABUSE, NOW "OCCASIONALLY" DRINKS -USES THC ON REGULAR BASIS -SMOKES 2 PPD OF CIGARETTES PMH: -CARDIAC CATHS--STENTS X 2 TO LAD--LAST STENT TO LAD 02/23/20 -HAD NSTEMI 03/06/20--NO INTERVENTION -PT CODED 09/16/17 -HAS HISTORY OF RESPIRATORY FAILURE -LONG HISTORY OF NON-COMPLIANCE PSH: -VENTRAL HERNIA REPAIR -CARDIAC CATHS--STENTS X 2 TO LAD, LAST STENT 02/25/20 Review of Systems Time Seen by Provider: 04:35 Constitutional: Fever, Chills, Sweats, Weakness, Malaise Eyes: No: Pain, Vision change, Conjunctivae inflammation, Eyelid inflammation, Other, Redness ENT: Nose congestion; No: Ear pain, Ear discharge, Nose pain, Nose discharge, Mouth pain, Mouth swelling, Throat pain, Throat swelling, Other Respiratory: Cough, Dry, Shortness of breath, SOB with excertion, Wheezing; No: Hemoptysis Cardiovascular: Chest Pain, Palpitations, Paroxysmal Noc. Dyspnea, Lt Headedness Gastrointestinal: Nausea, Constipation; No: Vomiting, Abdominal Pain, Diarrhea, Melena, Hematochezia, Other Genitourinary: No Dysuria, No Frequency, No Incontinence, No Hematuria, No Retention, No Other Sepsis Event Evaluation Height, Weight, BMI Height: 5'11.00" Weight: 200lbs. 4.0oz. 90.774797au; 28.54 BMI Method:Stated Exam Exam Vital Signs Date Time Temp Pulse Resp B/P (MAP) Pulse Ox O2 Delivery O2 Flow Rate FiO2 04/17/20 04:00 NIV Bilevel 30 04/17/20 04:00 99 123/81 (95) 98 NIV Bilevel 35.00 04/17/20 03:52 101 18 30.00 04/17/20 03:30 114 23 99 NIV Bilevel 35.00 04/17/20 03:06 116 23 146/83 (104) NIV Bilevel 30.00 04/17/20 02:00 98 11 131/90 (104) 97 NIV Bilevel 30.00 04/17/20 01:00 97 30 123/76 (92) 100 NIV Bilevel 30.00 04/17/20 01:00 92 04/17/20 00:00 102 25 160/102 (121) NIV Bilevel 30.00 04/17/20 00:00 37.0 04/17/20 00:00 NIV Bilevel 30 04/16/20 23:00 101 26 131/80 (97) 99 NIV Bilevel 30.00 04/16/20 22:39 30.00 04/16/20 22:00 96 29 118/96 (103) NIV Bilevel 30.00 04/16/20 21:00 99 125/78 (94) NIV Bilevel 30.00 04/16/20 20:45 107 145/83 (103) NIV Bilevel 30.00 04/16/20 20:30 112 30 140/83 (102) 97 NIV Bilevel 30.00 04/16/20 20:15 108 32 123/74 (90) 98 NIV Bilevel 30.00 04/16/20 20:00 111 20 117/74 (88) 96 NIV Bilevel 30.00 04/16/20 20:00 37.2 04/16/20 20:00 NIV Bilevel 30 04/16/20 19:51 108 18 95 30.00 04/16/20 19:45 107 30 138/82 (100) NIV Bilevel 30.00 04/16/20 19:30 102 144/102 (116) NIV Bilevel 30.00 04/16/20 19:22 102 25 30.00 04/16/20 19:15 104 23 146/117 (127) NIV Bilevel 30.00 04/16/20 19:00 104 26 162/112 (129) NIV Bilevel 30.00 04/16/20 19:00 104 04/16/20 18:30 108 28 96 30.00 04/16/20 18:00 123 15 185/105 (131) NIV Bilevel 30.00 04/16/20 17:00 121 23 136/117 (123) 96 NIV Bilevel 30.00 04/16/20 16:43 134 21 94 30.00 04/16/20 16:19 36.0 04/16/20 16:10 NIV Bilevel 30 04/16/20 16:00 189/119 (142) NIV Bilevel 30.00 04/16/20 15:00 41 89 NIV Bilevel 25.00 04/16/20 14:00 106 37 136/120 (125) 97 NIV Bilevel 25.00 04/16/20 13:30 113 04/16/20 13:00 106 45 136/120 (125) 89 NIV Bilevel 25.00 04/16/20 12:01 35.6 105 97 32 04/16/20 12:00 NIV Bilevel 25 04/16/20 12:00 112 36 141/97 (112) 92 NIV Bilevel 25.00 04/16/20 11:54 35.6 04/16/20 11:00 104 49 130/113 (119) 97 NIV Bilevel 3.00 04/16/20 10:45 96 Nasal Cannula 3.00 04/16/20 10:00 100 22 121/103 (109) 97 NIV Bilevel 25.00 04/16/20 09:00 110 21 154/77 (102) 93 NIV Bilevel 25.00 04/16/20 08:00 NIV Bilevel 25 04/16/20 08:00 121 25 160/83 (108) 95 NIV Bilevel 25.00 04/16/20 07:59 35.3 04/16/20 07:53 117 04/16/20 07:15 111 19 99 35.00 04/16/20 07:00 111 20 126/83 (97) 98 NIV Bilevel 25.00 04/16/20 06:15 36.1 04/16/20 06:15 94 NIV Bilevel 35 04/16/20 05:35 36.9 117 16 135/89 96 NIV Bilevel I & O 04/17/20 07:00 Intake Total 750 ml Output Total 1275 ml Balance -525 ml Height & Weight Height: 5'11.00" Weight: 200lbs. 4.0oz. 90.528803bo; 28.54 BMI Method:Stated General Appearance: No Apparent Distress, Anxious, Chronically ill, Obese HEENT: PERRL/EOMI, Normal ENT Inspection, Pharynx Normal, Moist Mucous Mem branes Neck: Full Range of Motion, Normal Inspection, Non Tender Respiratory: Chest Non Tender, No Accessory Muscle Use, No Respiratory Distress, Crackles, Decreased Breath Sounds, Wheezing Cardiovascular: Regular Rate, Rhythm, No Edema, No Gallop, No JVD, No Murmur, Normal Peripheral Pulses Capillary Refill: Less Than 3 Seconds Gastrointestinal: non tender, hernia (SOFT UMBILICAL HERNIA, NON-TENDER), other (ROTUND, FIRM) Extremity: Normal Capillary Refill, Normal Inspection, Normal Range of Motion, Non Tender, No Calf Tenderness, No Pedal Edema Neurologic/Psychiatric: Alert, Oriented x3, No Motor/Sensory Deficits, 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
[2020-04-17] MEDS: inSUlin ASPART (NovoLOG) 1 UNIT/0.01 ML (CHARGE PER UNIT) SC SCH ×4 (05:41→20:14)
[2020-04-17] MEDS: cefTRIAXone FOR IV USE 1,000 MG in WATER (STERILE) FOR INJECTION 10 ML IV SCH (05:41)
[2020-04-17] MEDS: VANCOMYCIN 1500 MG/NS 500 ML IVPB IV SCH ×2 (05:41)
[2020-04-17] MEDS ORDERED: MAGNESIUM 1 GM/100 ML IVPB 100 ML IV SCH (06:00)
[2020-04-17] MEDS ORDERED: POTASSIUM CL 10MEQ/50ML IVPB 50 ML IV SCH (06:00)
[2020-04-17] MEDS ORDERED: KCL 20 MEQ TAB (K-DUR) PO SCH (06:00)
[2020-04-17] MEDS: ASPIRIN E.C. 81 MG (ECOTRIN) TAB PO SCH (08:34)
[2020-04-17] MEDS: ENOXAPARIN 100 MG/1 ML (LOVENOX) SYR SC SCH (08:34)
[2020-04-17] MEDS: CLOPIDOGREL 75 MG (PLAVIX) TABLET PO SCH (08:34)
[2020-04-17] MEDS: AZITHROMYCIN 250 MG TAB (ZITHROMAX) PO SCH (08:34)
[2020-04-17] MEDS ORDERED: CLOPIDOGREL 75 MG (PLAVIX) TABLET PO SCH (09:00)
--- NOTE | 2020-04-17 09:29 | Progress Note - Hospitalist ---
Subjective HPI/CC On Admission Date Seen by Provider: Apr 17, 2020 Time Seen by Provider: 10:00 CC: Dyspnea with COVID-19 with NSTEMI HPI: This is a 64yoWM known to me from admit 6 weeks ago after NSTEMI who presents to the ER with fever and dyspnea and COVID swabbed +. Patient had just returned from a family reunion in [place] and had been non-compliant with OAC and Plavix. Patient is now off biPAP and on O2 BNC. Cardiac cath performed with required stent in RCA. Patient talks on his cell phone most of the time I am in the room wearing PPE. Abx maintained and Decadron. Convalescent Plasma is ordered. Spoke to [facility] and they recommended Remdesivir due to increase complexity of the case and the fact that plasma has not arrived yet. Patient required Ativan to calm him due to severe agitation. ABG reviewed. Subjective/Events-last exam Pt tolerating everything pretty well COVID treatment going pretty well with antiviral treatment, plasma still pending No pain is reported Restarted all home meds Will discontinue catheter today Overall responding well Review of Systems General: Fatigue, Malaise Pulmonary: Dyspnea, Cough Focused Exam Lactate Level 04/16/20 04:05: Lactic Acid Level 1.45 Objective Exam Vital Signs Vital Signs Date Time Temp Pulse Resp B/P (MAP) Pulse Ox O2 Delivery O2 Flow Rate FiO2 04/17/20 20:19 36.2 04/17/20 19:39 65 25 92 90 04/17/20 19:28 Nasal Cannula 3.00 04/17/20 16:00 Capillary Refill : Less Than 3 Seconds General Appearance: No Apparent Distress, WD/WN Respiratory: Chest Non Tender, No Accessory Muscle Use, No Respiratory Distres s, Crackles, Decreased Breath Sounds Cardiovascular: Regular Rate, Rhythm, No Edema, No Gallop, No JVD, No Murmur, Normal Peripheral Pulses Neurologic/Psychiatric: Alert, Oriented x3, No Motor/Sensory Deficits, Normal Mood/Affect Results/Procedures Lab Laboratory Tests 04/17/20 02:37 Patient resulted labs reviewed. Assessment/Plan Assessment and Plan Assess & Plan/Chief Complaint Assessment: Respiratory failure on bipap COVID 19 + Hypoxia NSTEMI s/p cardiac cath today with stent placement in RCA Non-compliance with OAC and Plavix CHF Plan: ICU Stent per cath IV abx Plasma Remdesivir 04/17/20: Transfer to cardiac step down unit Home meds restarted COVID treatment Diagnosis/Problems Diagnosis/Problems (1) Acute on chronic respiratory failure Status: Acute (2) Lab test positive for detection of COVID-19 virus Status: Acute (3) Elevated troponin Status: Acute (4) Non-compliance Status: Acute (5) CHF (congestive heart failure) Status: Acute (6) COPD (chronic obstructive pulmonary disease) Status: Acute (7) Diastolic heart failure (8) Non-insulin dependent type 2 diabetes mellitus (9) CAD (coronary artery disease) (10) Oxygen dependent Status: Acute (11) NSTEMI (non-ST elevated myocardial infarction) Status: Acute (12) Hypoxia Status: Acute (13) Elevated troponin Status: Acute Clinical Quality Measures DVT/VTE Risk/Contraindication: Risk Factor Score Per Nursin RFS Level Per Nursing on Admit: 4+=Very High MAURICIO OSEGUERA DO Apr 17, 2020 09:29
[2020-04-17] MEDS ORDERED: GLIP5TAB13 PO (10:11)
[2020-04-17] MEDS ORDERED: FURO80TA3 PO (10:11)
--- NOTE | 2020-04-17 10:17 | NUR ---
SPOKE WITH THE PT (I CALLED THE ROOM PHONE) WENT THRU THE EXT MED HISTORY AND CALLED [facility] TO COMPLETE THE MED REC THE FOLLOWING MEDICATIONS ARE NOT LISTED ON THE EXT MED HISTORY: 01-27-2020 GABAPENTIN 800MG#270/90DS 03-07-2020 ADVAIR 115/21 # 03-07-2020 FUROSEMIDE 80MG #60/60DS METFORMIN IS ALSO LISTED ON THE EXT MED HISTORY HOWEVER ON HIS LAST HOSPITAL STAY (FEBRUARY 2020) THIS MED WAS DISCONTINUED OTC MEDS: NONE
[2020-04-17] MEDS ORDERED: NS IV 500 ML 500 ML IV SCH (10:45)
[2020-04-17] MEDS: meTOprolol TARTRATE 50 MG (LOPRESSOR) TAB PO SCH ×2 (12:06→20:14)
[2020-04-17] MEDS: GABAPENTIN 600 MG (NEURONTIN) TAB PO SCH ×2 (12:07→20:14)
[2020-04-17] MEDS: LORazepam 0.5 MG (ATIVAN) TABLET PO PRN ×2 (14:20→20:14)
--- NOTE | 2020-04-17 14:53 | NUR ---
2630 PT STATES " I CAN'T CATH MY BREATH." SA02 NOTED AT 100%, PT SITTING UP IN CHAIR, THIS RN INSTRUCTED PT TO SLOW DOWN HIS BREATHING AND TO FOCUS ON BREATHING. DR OSEGUERA NOTIFIED THAT THIS IS THE 3 RD TIME PT HAS BEEN ANXIOUS. NEW ORDERS RECEIVED SEE ORDER HX
--- NOTE | 2020-04-17 16:08 | Cardiology Progress Note ---
Cardiology SOAP Progress Note Subjective: Improved shortness of breath. Objective: I&O/Vital Signs 04/17/20 04/17/20 04/17/20 04/17/20 05:00 06:00 06:30 06:37 Pulse 101 106 106 B/P (MAP) 131/81 (98) 124/105 (111) Pulse Ox 99 99 O2 Delivery NIV Bilevel NIV Bilevel Nasal Cannula O2 Flow Rate 35.00 35.00 5.00 04/17/20 04/17/20 04/17/20 04/17/20 07:04 08:00 08:55 11:00 B/P (MAP) 125/78 (94) Pulse Ox 97 92 96 O2 Delivery Nasal Cannula Nasal Cannula Nasal Cannula Nasal Cannula O2 Flow Rate 5.00 5.00 5.00 3.00 04/17/20 04/17/20 04/17/20 04/17/20 12:00 12:31 14:10 14:26 Temp 36.5 36.0 36.1 Pulse 117 118 B/P (MAP) 154/100 (118) Pulse Ox 95 98 O2 Delivery Nasal Cannula Nasal Cannula O2 Flow Rate 5.00 3.00 04/17/20 00:00 Intake Total 250 ml Output Total 575 ml Balance -325 ml Weight (Pounds): 200 Weight (Ounces): 4.0 Weight (Calculated Kilograms): 90.307292 Constitutional: appears stated age, AAO x 3, well-developed, well-nourished Cardiovascular: regular rate-rhythm Gastrointestional: No spleenomegaly Extremities: normal range of motion, non-tender, normal inspection, pedal edema; No clubbing, No cyanosis, No significant edema Neurologic/Psychiatric: no motor/sensory deficits, alert, normal mood/affect, oriented x 3, power is 5/5 both on sides Skin: normal color, warm/dry; No rash, No ulcerations Results/Procedures: Labs Laboratory Tests 04/16/20 16:28: Glucometer 348H 04/16/20 16:39: Blood Gas Puncture Site LEFT RADIAL, Blood Gas Patient Temperature 36, Arterial Blood pH 7.25*L, Arterial Blood Partial Pressure CO2 52H, Arterial Blood Partial Pressure O2 70L, Arterial Blood HCO3 22L, Arterial Blood Total CO2 24.0, Arterial Blood Oxygen Saturation 92L, Arterial Blood Base Excess -4.1L, Al Test POSITIVE, Blood Gas Ventilator Setting NO, Blood Gas Inspired Oxygen 30% 04/16/20 18:15: Blood Gas Puncture Site LEFT RADIAL, Blood Gas Patient Temperature 36.1, Arterial Blood pH 7.36L, Arterial Blood Partial Pressure CO2 39, Arterial Blood Partial Pressure O2 69L, Arterial Blood HCO3 22L, Arterial Blood Total CO2 23.1, Arterial Blood Oxygen Saturation 94, Arterial Blood Base Excess -2.9L, Al Test POSITIVE, Blood Gas Ventilator Setting NO, Blood Gas Inspired Oxygen 30% BIPAP 04/16/20 20:42: Glucometer 348H 04/17/20 02:37: White Blood Count 17.2H, Red Blood Count 3.21L, Hemoglobin 9.0L, Hematocrit 30L, Mean Corpuscular Volume 92, Mean Corpuscular Hemoglobin 28, Mean Corpuscular Hemoglobin Concent 30L, Red Cell Distribution Width 16.9H, Platelet Count 312, Mean Platelet Volume 9.5, Neutrophils (%) (Auto) 86H, Lymphocytes (%) (Auto) 6L, Monocytes (%) (Auto) 8, Eosinophils (%) (Auto) 0, Basophils (%) (Auto) 0, Neutrophils # (Auto) 14.8H, Lymphocytes # (Auto) 1.0, Monocytes # (Auto) 1.4H, Eosinophils # (Auto) 0.0, Basophils # (Auto) 0.0, Sodium Level 139, Potassium Level 4.7, Chloride Level 107, Carbon Dioxide Level 19L, Anion Gap 13, Blood Ur ea Nitrogen 42H, Creatinine 1.64H, Estimat Glomerular Filtration Rate 42, BUN/Creatinine Ratio 26, Glucose Level 168H, Calcium Level 8.7, Phosphorus Level 3.2, Magnesium Level 2.1 04/17/20 03:15: Blood Gas Puncture Site LEFT RADIAL, Blood Gas Patient Temperature 35.9, Arterial Blood pH 7.38, Arterial Blood Partial Pressure CO2 39, Arterial Blood Partial Pressure O2 72L, Arterial Blood HCO3 23, Arterial Blood Total CO2 23.8, Arterial Blood Oxygen Saturation 96, Arterial Blood Base Excess -2.0, Al Test YES-POS, Blood Gas Ventilator Setting NO, Blood Gas Inspired Oxygen 30% 04/17/20 12:14: Glucometer 240H Microbiology 04/16/20 Gram Stain - Final, Resulted 04/16/20 Sputum Culture - Preliminary, Resulted Usual upper respiratory ortiz 04/16/20 Blood Culture - Preliminary, Resulted Staph, Coag Neg (VEST BASTER) A/P: Assessment/Dx: Acute respiratory failure, Severe COVID-19 infection, Acute congestive heart failure, Non-STEMI, Sepsis Plan: This is a complicated and sick patient with severe COVID-19 infection, sepsis and acute respiratory failure on BiPAP therapy. The patient does have history of underlying COPD. He is on broad-spectrum antibiotics. Defer to the primary team. Patient also has history of PCI. Apparently he missed doses of Plavix. Presents with shortness of breath and chest heaviness. Troponin is 33 which is clearly not due to COVID-19 pneumonia. My concern is that this patient has an occluded stent due to either stent thrombosis due to noncompliance from Plavix. Therefore I have discussed at length with my catheter team as well as the patient and recommended that we do coronary angiography with possible intervention. We will have to take full COVID-19 precautions. 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 Coronary angiography done on 04/16/2020 which showed patent LAD stent. Severe OM1 stenosis treated with a drug-eluting stent. Known chronic total occluded RCA. Significantly elevated LVEDP. Will require Lasix. Paroxysmal atrial fibrillation, needs to be on Xarelto. Acute congestive heart failure. We will not perform an echocardiogram due to active COVID infection. LV gram showed moderate LV systolic dysfunction with significantly elevated LVEDP. Treat with Lasix. Thank you for your consultation. Please call me if you have any questions. Araceli Florentino MD, FACP, FACC, FSCAI, FHRS, CCDS Interventional Cardiology Cardiac Electrophysiology Vascular Medicine and Endovascular Interventions Focused Exam Lactate Level 04/16/20 04:05: Lactic Acid Level 1.45 Ignacio FLORENTINO MD Apr 17, 2020 16:08
[2020-04-17] MEDS ORDERED: REMDESIVIR INJ (NON-FORMULARY) 100 MG in NS (IVPB) 230 ML IV SCH (17:00)
--- NOTE | 2020-04-17 17:01 | NUR ---
PT GIVEN LITERATURE/EDUCATION REGARDING REMDESIVIR TREATMENT AND IT'S SIDE EFFECTS. PT REFUSES MEDICATION AT THIS TIME,
[2020-04-17] MEDS: RT-ALBUTEROL INHALER HFA (VENTOLIN HFA) 18 GM IH PRN (19:22)
[2020-04-17] MEDS: ADVAIR HFA 115/21 MCG INHALER 8 GM IH SCH (19:23)
[2020-04-18] VITALS: BP 117/98
[2020-04-18] MEDS: RT-ALBUTEROL INHALER HFA (VENTOLIN HFA) 18 GM IH PRN (02:41)
[2020-04-18] MEDS ORDERED: ONDANSETRON 4 MG/2 ML (SDV) Z0FRAN ONE (02:47)
[2020-04-18] MEDS ORDERED: ONDANSETRON 4 MG/2 ML (SDV) Z0FRAN IVP PRN (03:00)
[2020-04-18 04:00] VITALS: BP 106/67
--- NOTE | 2020-04-18 05:01 | Pulmonary Progress Note ---
Subjective Time Seen by a Provider: 04:59 Subjective/Events-last exam No complications noted. Sepsis Event Evaluation Height, Weight, BMI Height: 5'11.00" Weight: 200lbs. 4.0oz. 90.977464ud; 28.54 BMI Method:Stated Focused Exam Lactate Level 04/16/20 04:05: Lactic Acid Level 1.45 Exam Exam Vital Signs Date Time Temp Pulse Resp B/P (MAP) Pulse Ox O2 Delivery O2 Flow Rate FiO2 04/18/20 04:00 77 106/67 (80) 97 Nasal Cannula 5.00 04/18/20 04:00 35.9 04/18/20 02:41 84 Nasal Cannula 3.00 04/18/20 01:00 78 04/18/20 00:00 83 117/98 (104) 99 Nasal Cannula 5.00 04/17/20 23:19 35.9 04/17/20 21:00 92 Nasal Cannula 3.00 04/17/20 20:20 88 105/97 (100) 98 Nasal Cannula 5.00 04/17/20 20:19 36.2 04/17/20 19:39 65 25 92 90 04/17/20 19:28 96 Nasal Cannula 3.00 04/17/20 19:23 96 Nasal Cannula 3.00 04/17/20 19:00 81 04/17/20 16:00 87 37 100 Nasal Cannula 5.00 04/17/20 14:26 36.5 118 36.0 36.1 04/17/20 14:10 98 Nasal Cannula 3.00 04/17/20 12:31 117 04/17/20 12:00 154/100 (118) 95 Nasal Cannula 5.00 04/17/20 11:00 96 Nasal Cannula 3.00 04/17/20 08:55 Nasal Cannula 5.00 04/17/20 08:00 125/78 (94) 92 Nasal Cannula 5.00 04/17/20 07:04 97 Nasal Cannula 5.00 04/17/20 06:37 106 04/17/20 06:30 Nasal Cannula 5.00 04/17/20 06:00 106 124/105 (111) 99 NIV Bilevel 35.00 04/17/20 05:00 101 131/81 (98) 99 NIV Bilevel 35.00 I & O 04/18/20 07:00 Intake Total 680 ml Output Total 900 ml Balance -220 ml Height & Weight Height: 5'11.00" Weight: 200lbs. 4.0oz. 90.928833rj; 28.54 BMI Method:Stated General Appearance: No Apparent Distress, WD/WN HEENT: PERRL/EOMI, Normal ENT Inspection, Pharynx Normal, Moist Mucous Membranes Neck: Full Range of Motion, Normal Inspection, Non Tender Respiratory: Chest Non Tender, No Accessory Muscle Use, No Respiratory Distress, Crackles, Decreased Breath Sounds Cardiovascular: Regular Rate, Rhythm, No Edema, No Gallop, No JVD, No Murmur, Normal Peripheral Pulses Capillary Refill: Less Than 3 Seconds Gastrointestinal: non tender, hernia (SOFT UMBILICAL HERNIA, NON-TENDER), other (ROTUND, FIRM) Extremity: Normal Capillary Refill, Normal Inspection, Normal Range of Motion, Non Tender, No Calf Tenderness, No Pedal Edema Neurologic/Psychiatric: Alert, Oriented x3, No Motor/Sensory Deficits, Normal Mood/Affect Skin: Normal Color, Warm/Dry Lymphatic: No Adenopathy Results Lab Laboratory Tests 04/17/20 02:37 Assessment/Plan Assessment/Plan Acute respiratory failure -BiPAP PRN -oxygen Severe COVID-19 infection -Decadron -Remdesivir, Convalescent plasma - Pt understands these are EUA medications and consents to use. -Encourage proning Pneumonia -emperic Abx currently on Rocephin, azithromycin and vanco -Avila cultures pending -MRSA swab is pending Acute CHF -Cardiology is consulted -Lasix Acute on chronic renal failure -Monitor NSTEMI HX of COPD Paroxysmal Afib MARTHA HERNANDES DO Apr 18, 2020 05:01
[2020-04-18 05:16] LABS: BASOPHILS % (AUTO) 0 % (0-10); EOSINOPHILS % (AUTO) 0 % (0-10); HEMATOCRIT 29 % (40-54); HEMOGLOBIN 8.9 G/DL (13.3-17.7); LYMPHOCYTES # (AUTO) 2.2 X 10^3 (1.0-4.0); LYMPHOCYTES % (AUTO) 13 % (12-44); MEAN CORPUSCULAR HEMOGLOBIN 28 PG (25-34); MEAN CORPUSCULAR HGB CONC 31 G/DL (32-36); MEAN CORPUSCULAR VOLUME 92 FL (80-99); MEAN PLATELET VOLUME 9.9 FL (7.4-10.4); MONOCYTES # (AUTO) 1.2 X 10^3 (0.0-1.0); MONOCYTES % (AUTO) 7 % (0-12); NEUTROPHILS # (AUTO) 12.8 X 10^3 (1.8-7.8); NEUTROPHILS % (AUTO) 79 % (42-75); PLATELET COUNT 295 10^3/uL (130-400); WHITE BLOOD COUNT 16.1 10^3/uL (4.3-11.0)
[2020-04-18 05:40] LABS: CALCIUM 8.4 MG/DL (8.5-10.1); CREATININE SERUM 2.34 MG/DL (0.60-1.30); MAGNESIUM 2.3 MG/DL (1.6-2.4); PHOSPHORUS 7.1 MG/DL (2.3-4.7); POTASSIUM 5.4 MMOL/L (3.6-5.0)
[2020-04-18] MEDS: cefTRIAXone FOR IV USE 1,000 MG in WATER (STERILE) FOR INJECTION 10 ML IV SCH (06:19)
[2020-04-18] MEDS: VANCOMYCIN 1500 MG/NS 500 ML IVPB IV SCH ×2 (06:20)
[2020-04-18] MEDS: inSUlin ASPART (NovoLOG) 1 UNIT/0.01 ML (CHARGE PER UNIT) SC SCH ×4 (07:19→20:17)
[2020-04-18] MEDS: RT-ALBUTEROL INHALER HFA (VENTOLIN HFA) 18 GM IH SCH ×3 (08:10→19:48)
[2020-04-18] MEDS: ADVAIR HFA 115/21 MCG INHALER 8 GM IH SCH ×2 (08:10→21:48)
[2020-04-18] MEDS ORDERED: lisINopril 40 MG (PRINIVIL) TABLET PO SCH (09:00)
[2020-04-18] MEDS ORDERED: glipiZIDE 5 MG (GLUCOTROL) TAB PO SCH (09:00)
[2020-04-18] MEDS ORDERED: NON-FORMULARY MEDICATION 1 EA EA (Insulin Glargine,Hum.rec.anlog (Lantus) 18 UNIT) SQ SCH (09:00)
[2020-04-18] MEDS ORDERED: CLOPIDOGREL 75 MG (PLAVIX) TABLET PO SCH (09:00)
[2020-04-18] MEDS ORDERED: FUROSEMIDE 40 MG (LASIX) TAB PO SCH (09:00)
[2020-04-18] MEDS: CLOPIDOGREL 75 MG (PLAVIX) TABLET PO SCH (09:31)
[2020-04-18] MEDS: meTOprolol TARTRATE 50 MG (LOPRESSOR) TAB PO SCH ×2 (09:31→19:58)
[2020-04-18] MEDS: dexAMETHasone 6 MG TAB (DECADRON) PO SCH (09:31)
[2020-04-18] MEDS: ASPIRIN E.C. 81 MG (ECOTRIN) TAB PO SCH (09:31)
[2020-04-18] MEDS: AZITHROMYCIN 250 MG TAB (ZITHROMAX) PO SCH (09:31)
[2020-04-18] MEDS: amLODIPine 5 MG (NORVASC) TAB PO SCH (09:32)
[2020-04-18] MEDS: buPROPion SR 150 MG (WELLBUTRIN SR) TAB PO SCH (09:32)
[2020-04-18] MEDS: GABAPENTIN 600 MG (NEURONTIN) TAB PO SCH ×3 (09:32→19:58)
[2020-04-18 09:34] VITALS: BP 116/72
--- NOTE | 2020-04-18 10:24 | Progress Note - Hospitalist ---
Subjective HPI/CC On Admission Date Seen by Provider: Apr 19, 2020 Time Seen by Provider: 10:00 CC: Dyspnea with COVID-19 with NSTEMI HPI: This is a 64yoWM known to me from admit 6 weeks ago after NSTEMI who presents to the ER with fever and dyspnea and COVID swabbed +. Patient had just returned from a family reunion in [place] and had been non-compliant with OAC and Plavix. Patient is now off biPAP and on O2 BN. Cardiac cath performed with required stent in RCA. Patient talks on his cell phone most of the time I am in the room wearing PPE. Abx maintained and Decadron. Convalescent Plasma is ordered. Spoke to [facility] and they recommended Remdesivir due to increase complexity of the case and the fact that plasma has not arrived yet. Patient required Ativan to calm him due to severe agitation. ABG reviewed. Subjective/Events-last exam Pt transferring to fourth floor Wants a shower Overall dramatically improved Less hypoxic, maintained on his three liters of home O2 he uses at home No pain issues Review of Systems General: Fatigue, Malaise Pulmonary: Dyspnea Focused Exam Lactate Level Objective Exam Vital Signs Vital Signs Date Time Temp Pulse Resp B/P (MAP) Pulse Ox O2 Delivery O2 Flow Rate FiO2 04/19/20 00:00 36.7 60 18 129/81 (97) 91 Nasal Cannula 2.00 04/17/20 19:39 90 Capillary Refill : Less Than 3 Seconds General Appearance: No Apparent Distress, WD/WN, Chronically ill Respiratory: Chest Non Tender, No Accessory Muscle Use, No Respiratory Distress, Crackles, Decreased Breath Sounds, Wheezing Cardiovascular: Regular Rate, Rhythm, No Edema, No Gallop, No JVD, No Murmur, Normal Peripheral Pulses Extremity: No Normal Capillary Refill, No Normal Inspection, No Normal Range of Motion, No Non Tender, No No Calf Tenderness, No No Pedal Edema, No Calf Tenderness, No Inflammation, No Pedal Edema, No Pelvis Stable, No Slow Capillary Refill, No Swelling, No Other Neurologic/Psychiatric: Alert, Oriented x3, No Motor/Sensory Deficits, Normal Mood/Affect Results/Procedures Lab Laboratory Tests 04/19/20 04:50 Patient resulted labs reviewed. Assessment/Plan Assessment and Plan Assess & Plan/Chief Complaint Assessment: Respiratory failure on bipap COVID 19 + Hypoxia NSTEMI s/p cardiac cath today with stent placement in RCA Non-compliance with OAC and Plavix CHF Plan: ICU Stent per cath IV abx Plasma Remdesivir 04/17/20: Transfer to cardiac step down unit Home meds restarted COVID treatment 04/18/20: Move to [facility] Home meds Nebs O2 Diagnosis/Problems Diagnosis/Problems (1) Acute on chronic respiratory failure Status: Acute (2) Lab test positive for detection of COVID-19 virus Status: Acute (3) Elevated troponin Status: Acute (4) Non-compliance Status: Acute (5) CHF (congestive heart failure) Status: Acute (6) COPD (chronic obstructive pulmonary disease) Status: Acute (7) Diastolic heart failure (8) Non-insulin dependent type 2 diabetes mellitus (9) CAD (coronary artery disease) (10) Oxygen dependent Status: Acute (11) NSTEMI (non-ST elevated myocardial infarction) Status: Acute (12) Hypoxia Status: Acute (13) Elevated troponin Status: Acute Clinical Quality Measures DVT/VTE Risk/Contraindication: Risk Factor Score Per Nursin RFS Level Per Nursing on Admit: 4+=Very High MAURICIO OSEGUERA DO Apr 18, 2020 10:24
[2020-04-18 11:44] VITALS: BP 111/72
--- NOTE | 2020-04-18 11:46 | Cardiology Progress Note ---
Subjective Date Seen by Provider: Apr 18, 2020 Time Seen by Provider: 11:43 Subjective/Events-last exam Patient was seen at bedside, sitting comfortably, feeling better and breathing better. Review of Systems General: No Chills, No Night Sweats; Fatigue; No Malaise, No Appetite, No Other HEENT: No Head Aches, No Visual Changes, No Eye Pain, No Ear Pain, No Dysphasia, No Sinus Congestion, No Post Nasal Drip, No Sore Throat, No Other Pulmonary: Dyspnea; No Cough, No Pleuritic Chest Pain, No Other Cardiovascular: No: Chest Pain, Palpitations, Orthopnea, Paroxysmal Noc. Dyspnea, Edema, Lt Headedness, Other Focused Exam Lactate Level 04/16/20 04:05: Lactic Acid Level 1.45 Objective-Cardiology Exam Last Set of Vital Signs Vital Signs 04/17/20 04/18/20 19:39 09:34 Temp 35.8 Pulse 82 Resp 25 B/P (MAP) 116/72 (87) Pulse Ox 95 O2 Delivery Nasal Cannula O2 Flow Rate 3.00 FiO2 90 Capillary Refill : Less Than 3 Seconds I&O Intake and Output 04/18/20 00:00 Intake Total 850 ml Output Total 1475 ml Balance -625 ml Intake Oral 850 ml Output Urine Total 1475 ml General: Alert, Cooperative HEENT: Atraumatic Lungs: Other Heart: Regular Rate Abdomen: No Tenderness Extremities: No Edema Neuro: Normal Speech Psych/Mental Status: Mental Status NL Results Lab Laboratory Tests 04/18/20 04:30 A/P-Cardiology Admission Diagnosis Non-ST elevation myocardial infarction Coronary artery disease Acute respiratory failure Acute renal failure Assessment/Plan Non-ST elevation myocardial infarction, coronary artery disease, had a cardiac catheterization was April 16, [address] Florentino underwent stenting to the OM1 with drug-eluting stent. Known to have chronic total occlusion of the right coronary artery treated conservatively Sepsis with COVID positive, improving slowly, feeling better at this time Acute exacerbation of COPD, improving. Continue to monitor Congestive heart failure, acute on chronic left ventricular systolic dysfunction, ischemic cardiomyopathy, started on Lasix. Continue to monitor Paroxysmal atrial fibrillation, starting oral anticoagulation monitor tolerance and response Acute renal failure. Hold Lasix for now, Continue to monitor renal function Clinical Quality Measures DVT/VTE Risk/Contraindication: Risk Factor Score Per Nursin RFS Level Per Nursing on Admit: 4+=Very High BETH RODRÍGUEZ MD Apr 18, 2020 11:46
[2020-04-18 16:13] VITALS: BP 100/68
[2020-04-18] MEDS ORDERED: RIVAROXABAN 20 MG TABLET (XARELTO) PO SCH (17:00)
[2020-04-18 20:00] VITALS: BP 104/84
--- NOTE | 2020-04-18 20:28 | NUR ---
REPORT GIVEN TO TAZ RN, PT TRANSFERRED TO ROOM 429
--- NOTE | 2020-04-18 21:00 | NUR ---
REPORT RECEIVED FROM JUNG MORGAN AT APPROXIMATELY 1940. PT WAS TRANSPORTED DOWN FROM ICU TO ROOM 429 BY ICU STAFF AT APPROXIMATELY 2015. PT WAS ASSESSED AND CONDITION STABLE UPON ARRIVAL.
[2020-04-19] VITALS: BP 129/81
[2020-04-19] MEDS: RT-ALBUTEROL INHALER HFA (VENTOLIN HFA) 18 GM IH SCH ×4 (02:47→19:35)
[2020-04-19] MEDS ORDERED: WATER (STERILE) FOR INJECTION 10 ML ONE (05:13)
[2020-04-19] MEDS ORDERED: cefTRIAXone 1,000 MG IV (ROCEPHIN) VIAL ONE (05:13)
[2020-04-19 05:18] LABS: BASOPHILS % (AUTO) 0 % (0-10); EOSINOPHILS % (AUTO) 0 % (0-10); HEMATOCRIT 29 % (40-54); HEMOGLOBIN 8.6 G/DL (13.3-17.7); LYMPHOCYTES # (AUTO) 0.8 X 10^3 (1.0-4.0); LYMPHOCYTES % (AUTO) 7 % (12-44); MEAN CORPUSCULAR HEMOGLOBIN 27 PG (25-34); MEAN CORPUSCULAR HGB CONC 30 G/DL (32-36); MEAN CORPUSCULAR VOLUME 91 FL (80-99); MEAN PLATELET VOLUME 10.1 FL (7.4-10.4); MONOCYTES # (AUTO) 0.6 X 10^3 (0.0-1.0); MONOCYTES % (AUTO) 5 % (0-12); NEUTROPHILS # (AUTO) 10.1 X 10^3 (1.8-7.8); NEUTROPHILS % (AUTO) 88 % (42-75); PLATELET COUNT 288 10^3/uL (130-400); WHITE BLOOD COUNT 11.5 10^3/uL (4.3-11.0)
[2020-04-19 05:40] VITALS: BP 136/75
[2020-04-19 05:48] LABS: CREATININE SERUM 3.49 MG/DL (0.60-1.30); MAGNESIUM 2.6 MG/DL (1.6-2.4); PHOSPHORUS 9.2 MG/DL (2.3-4.7); POTASSIUM 5.6 MMOL/L (3.6-5.0)
[2020-04-19] MEDS: cefTRIAXone FOR IV USE 1,000 MG in WATER (STERILE) FOR INJECTION 10 ML IV SCH (06:23)
[2020-04-19] MEDS: inSUlin ASPART (NovoLOG) 1 UNIT/0.01 ML (CHARGE PER UNIT) SC SCH ×4 (06:24→20:55)
[2020-04-19] MEDS ORDERED: inSUlin (REGULAR) HUMAN 1 UNIT/0.01 ML (CHARGE PER UNIT) IV NR (09:00)
[2020-04-19] MEDS ORDERED: SODIUM BICARB 8.4% 50 MEQ/50 ML VIAL IV NR (09:00)
[2020-04-19] MEDS ORDERED: DEXTROSE 50% 50 ML (IMS) SYR IV NR (09:00)
[2020-04-19] MEDS ORDERED: SOD POLYSTERENE 15 GM/60 ML (KAYEXALATE) UNIT DOSE PO NR (09:00)
--- NOTE | 2020-04-19 09:03 | Pulmonary Progress Note ---
Subjective Time Seen by a Provider: 09:02 Sepsis Event Evaluation Height, Weight, BMI Height: 5'11.00" Weight: 200lbs. 4.0oz. 90.419289tq; 28.54 BMI Method:Stated Exam Exam Vital Signs Date Time Temp Pulse Resp B/P (MAP) Pulse Ox O2 Delivery O2 Flow Rate FiO2 04/19/20 08:00 Nasal Cannula 04/19/20 05:40 37.1 69 18 136/75 (95) 94 Nasal Cannula 3.00 04/19/20 00:00 36.7 60 18 129/81 (97) 91 Nasal Cannula 2.00 04/18/20 21:30 Nasal Cannula 2.00 04/18/20 20:00 36.2 76 18 104/84 (91) 94 Nasal Cannula 2.00 04/18/20 16:13 36.0 72 16 100/68 (79) 93 2.00 04/18/20 14:49 98 Nasal Cannula 3.00 04/18/20 11:44 36.0 76 18 111/72 (85) 92 04/18/20 09:34 35.8 82 116/72 (87) 95 Nasal Cannula 3.00 04/18/20 09:30 95 Nasal Cannula 3.00 I & O 04/19/20 07:00 Intake Total 1500 ml Output Total 425 ml Balance 1075 ml Height & Weight Height: 5'11.00" Weight: 200lbs. 4.0oz. 90.608670os; 28.54 BMI Method:Stated General Appearance: No Apparent Distress, WD/WN, Chronically ill HEENT: PERRL/EOMI, Normal ENT Inspection, Pharynx Normal, Moist Mucous Membranes Neck: Full Range of Motion, Normal Inspection, Non Tender Respiratory: Chest Non Tender, No Accessory Muscle Use, No Respiratory Di stress, Crackles, Decreased Breath Sounds, Wheezing Cardiovascular: Regular Rate, Rhythm, No Edema, No Gallop, No JVD, No Murmur, Normal Peripheral Pulses Capillary Refill: Less Than 3 Seconds Gastrointestinal: non tender, hernia (SOFT UMBILICAL HERNIA, NON-TENDER), other (ROTUND, FIRM) Extremity: No Normal Capillary Refill, No Normal Inspection, No Normal Range of Motion, No Non Tender, No No Calf Tenderness, No No Pedal Edema, No Calf Tenderness, No Inflammation, No Pedal Edema, No Pelvis Stable, No Slow Capillary Refill, No Swelling, No Other Neurologic/Psychiatric: Alert, Oriented x3, No Motor/Sensory Deficits, Normal Mood/Affect Skin: Normal Color, Warm/Dry Lymphatic: No Adenopathy Results Lab Laboratory Tests 04/18/20 04:30 04/19/20 04:50 04/19/20 05:05 Assessment/Plan Assessment/Plan Acute respiratory failure -BiPAP PRN -oxygen Severe COVID-19 infection -Decadron -Remdesivir, Convalescent plasma - Pt understands these are EUA medications and consents to use. -Encourage proning Hyperkalemia -give Kayexalate, insulin, and bicarb -Start IVF NS at 50cc/hr Acute on chronic renal failure -Monitor -Hold lisinopril -Start IVF at 50cc/hr Pneumonia -emperic Abx currently on Rocephin, azithromycin and vanco -Avila cultures pending -MRSA swab is pending Acute CHF -Cardiology is consulted -Lasix NSTEMI HX of COPD Paroxysmal Afib MARTHA HERNANDES DO Apr 19, 2020 09:03
[2020-04-19] MEDS: GABAPENTIN 600 MG (NEURONTIN) TAB PO SCH (09:14)
[2020-04-19] MEDS: ASPIRIN E.C. 81 MG (ECOTRIN) TAB PO SCH (09:14)
[2020-04-19] MEDS: AZITHROMYCIN 250 MG TAB (ZITHROMAX) PO SCH (09:14)
[2020-04-19] MEDS: amLODIPine 5 MG (NORVASC) TAB PO SCH (09:14)
[2020-04-19] MEDS ORDERED: NS IV 1000 ML 1,000 ML IV SCH (09:15)
[2020-04-19] MEDS: dexAMETHasone 6 MG TAB (DECADRON) PO SCH (09:15)
[2020-04-19] MEDS: meTOprolol TARTRATE 50 MG (LOPRESSOR) TAB PO SCH ×2 (09:15→20:53)
[2020-04-19] MEDS: CLOPIDOGREL 75 MG (PLAVIX) TABLET PO SCH (09:16)
--- NOTE | 2020-04-19 09:31 | Progress Note - Hospitalist ---
Subjective HPI/CC On Admission Date Seen by Provider: Apr 19, 2020 Time Seen by Provider: 10:00 CC: Dyspnea with COVID-19 with NSTEMI HPI: This is a 64yoWM known to me from admit 6 weeks ago after NSTEMI who presents to the ER with fever and dyspnea and COVID swabbed +. Patient had just returned from a family reunion in [place] and had been non-compliant with OAC and Plavix. Patient is now off biPAP and on O2 BNC. Cardiac cath performed with required stent in RCA. Patient talks on his cell phone most of the time I am in the room wearing PPE. Abx maintained and Decadron. Convalescent Plasma is ordered. Spoke to [facility] and they recommended Remdesivir due to increase complexity of the case and the fact that plasma has not arrived yet. Patient required Ativan to calm him due to severe agitation. ABG reviewed. Subjective/Events-last exam Potassium elevated at 5.6 Dr. Aguiar will address with gentle IV fluids Creatinine 3.49, BUN 84, He did receive contrast during his cardiac catheterization with a stent placed Holding Lisinopril and Glipizide Pt very complicated Having fecal inconvenience when he coughed but I tried to reassure him Review of Systems General: Fatigue, Malaise Neurological: Weakness Objective Exam Vital Signs Vital Signs Date Time Temp Pulse Resp B/P (MAP) Pulse Ox O2 Delivery O2 Flow Rate FiO2 04/20/20 00:15 36.0 67 20 125/71 (89) 96 Nasal Cannula 3.00 04/17/20 19:39 90 Capillary Refill : Less Than 3 Seconds General Appearance: No Apparent Distress, WD/WN, Chronically ill HEENT: PERRL/EOMI, Normal ENT Inspection, Pharynx Normal, Moist Mucous Membranes Neck: Full Range of Motion, Normal Inspection, Non Tender, Supple, Carotid Bruit Respiratory: Chest Non Tender, No Accessory Muscle Use, No Respiratory Distress, Decreased Breath Sounds, Wheezing Cardiovascular: Regular Rate, Rhythm, No Edema, No Gallop, No JVD, No Murmur, Normal Peripheral Pulses Gastrointestinal: Normal Bowel Sounds, No Organomegaly, No Pulsatile Mass, Non Tender, Soft Back: Normal Inspection, No CVA Tenderness, No Vertebral Tenderness Extremity: Normal Capillary Refill, Normal Inspection, Normal Range of Motion, Non Tender, No Calf Tenderness, No Pedal Edema Neurologic/Psychiatric: Alert, Oriented x3, No Motor/Sensory Deficits, Normal Mood/Affect Skin: Normal Color, Warm/Dry Lymphatic: No Adenopathy Results/Procedures Lab Patient resulted labs reviewed. Assessment/Plan Assessment and Plan Assess & Plan/Chief Complaint Assessment: Respiratory failure on bipap COVID 19 + Hypoxia NSTEMI s/p cardiac cath today with stent placement in RCA Non-compliance with OAC and Plavix CHF Plan: ICU Stent per cath IV abx Plasma Remdesivir 04/17/20: Transfer to cardiac step down unit Home meds restarted COVID treatment 04/18/20: [facility] Home meds Nebs O2 04/19/20: Treat elevated potassium Appreciate Dr. Aguiar consult Gentle IV fluids Monitor creatinine Monitor anemia Awaiting plasma for COVID Diagnosis/Problems Diagnosis/Problems (1) Acute on chronic respiratory failure Status: Acute (2) Lab test positive for detection of COVID-19 virus Status: Acute (3) Elevated troponin Status: Acute (4) Non-compliance Status: Acute (5) CHF (congestive heart failure) Status: Acute (6) COPD (chronic obstructive pulmonary disease) Status: Acute (7) Diastolic heart failure (8) Non-insulin dependent type 2 diabetes mellitus (9) CAD (coronary artery disease) (10) Oxygen dependent Status: Acute (11) NSTEMI (non-ST elevated myocardial infarction) Status: Acute (12) Hypoxia Status: Acute (13) Elevated troponin Status: Acute Clinical Quality Measures DVT/VTE Risk/Contraindication: Risk Factor Score Per Nursin RFS Level Per Nursing on Admit: 4+=Very High MAURICIO OSEGUERA DO Apr 19, 2020 09:31
[2020-04-19] MEDS: buPROPion SR 150 MG (WELLBUTRIN SR) TAB PO SCH (09:45)
--- NOTE | 2020-04-19 10:08 | Cardiology Progress Note ---
Subjective Date Seen by Provider: Apr 19, 2020 Time Seen by Provider: 10:06 Subjective/Events-last exam Patient was seen at bedside, reported an episode of incontinence after operative cough. Denied any chest pain Review of Systems General: No Chills, No Night Sweats, No Fatigue, No Malaise, No Appetite, No Other HEENT: No Head Aches, No Visual Changes, No Eye Pain, No Ear Pain, No Dysphasia, No Sinus Congestion, No Post Nasal Drip, No Sore Throat, No Other Pulmonary: No Dyspnea, No Cough, No Pleuritic Chest Pain, No Other Cardiovascular: No: Chest Pain, Palpitations, Orthopnea, Paroxysmal Noc. Dyspnea, Edema, Lt Headedness, Other Gastrointestinal: Diarrhea Objective-Cardiology Exam Last Set of Vital Signs Vital Signs 04/17/20 04/19/20 04/19/20 19:39 05:40 08:00 Temp 37.1 Pulse 69 Resp 18 B/P (MAP) 136/75 (95) Pulse Ox 94 O2 Delivery Nasal Cannula O2 Flow Rate 3.00 FiO2 90 Capillary Refill : Less Than 3 Seconds I&O Intake and Output 04/19/20 00:00 Intake Total 1540 ml Output Total 575 ml Balance 965 ml Intake Oral 1010 ml IV Total 530 ml Output Urine Total 575 ml # Voids 1 # Bowel Movements 1 General: Alert, Cooperative HEENT: Atraumatic Neck: Supple, No JVD, No Thyromegaly Lungs: Other Heart: Regular Rate, Normal S1, Normal S2 Abdomen: No Tenderness Extremities: No Edema Skin: No Rashes, No Breakdown, No Significant Lesion Neuro: Normal Speech Psych/Mental Status: Mental Status NL Results Lab Laboratory Tests 04/19/20 04:50 04/19/20 05:05 A/P-Cardiology Admission Diagnosis Non-ST elevation myocardial infarction Coronary artery disease Acute respiratory failure Acute renal failure Assessment/Plan Non-ST elevation myocardial infarction, coronary artery disease, had a cardiac catheterization was April 16, [address] Florentino underwent stenting to the OM1 with drug-eluting stent. Known to have chronic total occlusion of the right coronary artery treated conservatively, continue to monitor Acute on chronic renal failure, worsening renal function, hold Lasix for now, started on IV fluid, monitor closely Electrolyte imbalance. Started on IV fluid, monitor closely Diarrhea with incontinence. Continue to monitor Sepsis with COVID positive, improving slowly, feeling better at this time Acute exacerbation of COPD, improving. Continue to monitor Congestive heart failure, acute on chronic left ventricular systolic dysfunction, ischemic cardiomyopathy, I am holding Lasix and monitoring renal function closely. Monitor fluid balance closely. Paroxysmal atrial fibrillation, started on oral anticoagulation, continue to monitor closely Clinical Quality Measures DVT/VTE Risk/Contraindication: Risk Factor Score Per Nursin RFS Level Per Nursing on Admit: 4+=Very High BETH RODRÍGUEZ MD Apr 19, 2020 10:08
[2020-04-19] MEDS: ADVAIR HFA 115/21 MCG INHALER 8 GM IH SCH ×2 (10:22→19:35)
[2020-04-19] MEDS: NS IV 1000 ML 1,000 ML IV SCH ×2 (10:29→21:02)
[2020-04-19 12:15] VITALS: BP 134/72
--- NOTE | 2020-04-19 13:36 | Physician Query Clarification ---
PQ-Further Specificity Admission/Discharge Admission Date: Apr 16, 2020 at 05:30 Discharge Date: Dr. Oseguera, The medical record reflects the following clinical scenario: History/Risk Factors: COVID 19 Positive Pneumonia Acute on chronic respiratory failure Acute on chronic diastolic and systolic congestive heart failure NSTEMI Clinical Findings: WBC 14.9, Band 2, T 36.1, P 123, Resp 20, BP 145/81, Lactic acid 1.45 Treatment:IV Rocephin, IV Azithromycin 500mg Question: Can you further confirm and specify Sepsis documented by Dr. Florentino per the clinical indicators above? Please document a response in the Progress Notes or Discharge Summary. 1. Sepsis with severe sepsis. 2. Sepsis ( without severe sepsis). 3. No sepsis 4. Other, with explanation of the clinical findings. 5. Clinically undetermined, no explanation for the clinical findings. PHYSICIAN RESPONSE Can you specify per above: 2 Please remember a lack of response to the above will prompt a phone page by [facility]/Coding staff. In responding to this query, please exercise your independent professional judgment. The purpose of this communication is to more accurately reflect the complexity of your patients condition. The fact that a question is asked does not imply that any particular answer is desired or expected. Thank you for your timely response to this clarification. Requestors name: Dora Perez [facility] Phone # ext [phone] or [phone] THIS PHYSICIAN QUERY FORM IS A PERMANENT PART OF THE MEDICAL RECORD DOAR PEREZ Apr 19, 2020 13:36 MAURICIO OSEGUERA DO Apr 19, 2020 18:02
[2020-04-19 15:49] VITALS: BP 125/87
[2020-04-19] MEDS: RIVAROXABAN 15 MG TABLET (XARELTO) PO SCH (18:21)
[2020-04-19 19:27] VITALS: BP 124/70
[2020-04-19] MEDS: GABAPENTIN 300 MG (NEURONTIN) CAP PO SCH (20:53)
[2020-04-20] VITALS (7 sets, daily range): BP systolic 100–135; BP diastolic 58–92
[2020-04-20] MEDS ORDERED: LOPERAMIDE 2 MG (IMODIUM) TABLET PO PRN (00:35)
[2020-04-20] MEDS ORDERED: LOPERAMIDE 2 MG (IMODIUM) TABLET ONE (01:21)
[2020-04-20] MEDS: LORazepam 0.5 MG (ATIVAN) TABLET PO PRN ×2 (01:53→21:02)
--- NOTE | 2020-04-20 05:26 | Progress Note - Hospitalist ---
Subjective HPI/CC On Admission Date Seen by Provider: Apr 20, 2020 Time Seen by Provider: 09:00 CC: Dyspnea with COVID-19 with NSTEMI HPI: This is a 64yoWM known to me from admit 6 weeks ago after NSTEMI who presents to the ER with fever and dyspnea and COVID swabbed +. Patient had just returned from a family reunion in [place] and had been non-compliant with OAC and Plavix. Patient is now off biPAP and on O2 BNC. Cardiac cath performed with required stent in RCA. Patient talks on his cell phone most of the time I am in the room wearing PPE. Abx maintained and Decadron. Convalescent Plasma is ordered. Spoke to [facility] and they recommended Remdesivir due to increase complexity of the case and the fact that plasma has not arrived yet. Patient required Ativan to calm him due to severe agitation. ABG reviewed. Subjective/Events-last exam Pt doing pretty well except for diarrhea from Kayexalate to get rid of elevated potassium Oxygen maintained Overall doing well but very complicated Creatinine 3.64 Review of Systems General: Fatigue, Malaise Neurological: Weakness Objective Exam Vital Signs Vital Signs Date Time Temp Pulse Resp B/P (MAP) Pulse Ox O2 Delivery O2 Flow Rate FiO2 04/20/20 20:15 36.0 77 24 135/92 (106) 94 Nasal Cannula 3.00 04/17/20 19:39 90 Capillary Refill : Less Than 3 Seconds General Appearance: No Apparent Distress, WD/WN, Chronically ill HEENT: PERRL/EOMI, Normal ENT Inspection, Pharynx Normal, Moist Mucous Membranes Neck: Full Range of Motion, Normal Inspection, Non Tender, Supple, Carotid Bruit Respiratory: Chest Non Tender, Lungs Clear, Normal Breath Sounds, No Accessory Muscle Use, No Respiratory Distress Cardiovascular: Regular Rate, Rhythm, No Edema, No Gallop, No JVD, No Murmur, Normal Peripheral Pulses Gastrointestinal: Normal Bowel Sounds, No Organomegaly, No Pulsatile Mass, Non Tender, Soft Back: Normal Inspection, No CVA Tenderness, No Vertebral Tenderness Extremity: Normal Capillary Refill, Normal Inspection, Normal Range of Motion, Non Tender, No Calf Tenderness, No Pedal Edema Neurologic/Psychiatric: Alert, Oriented x3, No Motor/Sensory Deficits, Normal Mood/Affect Skin: Normal Color, Warm/Dry Lymphatic: No Adenopathy Results/Procedures Lab Laboratory Tests 04/20/20 06:04 Patient resulted labs reviewed. Assessment/Plan Assessment and Plan Assess & Plan/Chief Complaint Assessment: Respiratory failure on bipap COVID 19 + Hypoxia NSTEMI s/p cardiac cath today with stent placement in RCA Non-compliance with OAC and Plavix CHF Plan: ICU Stent per cath IV abx Plasma Remdesivir 04/17/20: Transfer to cardiac step down unit Home meds restarted COVID treatment 04/18/20: Move to [address] [place] [address] meds Nebs O2 04/19/20: Treat elevated potassium Appreciate Dr. Aguiar consult Gentle IV fluids Monitor creatinine Monitor anemia Awaiting plasma for COVID 04/20/20: Supportive care Monitor creatinine Continue treating elevated potassium Maintain oxygen Diagnosis/Problems Diagnosis/Problems (1) Acute on chronic respiratory failure Status: Acute (2) Lab test positive for detection of COVID-19 virus Status: Acute (3) Elevated troponin Status: Acute (4) Non-compliance Status: Acute (5) CHF (congestive heart failure) Status: Acute (6) COPD (chronic obstructive pulmonary disease) Status: Acute (7) Diastolic heart failure (8) Non-insulin dependent type 2 diabetes mellitus (9) CAD (coronary artery disease) (10) Oxygen dependent Status: Acute (11) NSTEMI (non-ST elevated myocardial infarction) Status: Acute (12) Hypoxia Status: Acute (13) Elevated troponin Status: Acute Clinical Quality Measures DVT/VTE Risk/Contraindication: Risk Factor Score Per Nursin RFS Level Per Nursing on Admit: 4+=Very High MAURICIO OSEGUERA DO Apr 20, 2020 05:26
[2020-04-20] MEDS ORDERED: ceFAZolin INJECTION 1,000 MG ONE (05:59)
[2020-04-20] MEDS ORDERED: WATER (STERILE) FOR INJECTION 10 ML ONE ×2 (05:59→06:09)
[2020-04-20] MEDS ORDERED: cefTRIAXone 1,000 MG IV (ROCEPHIN) VIAL ONE (06:09)
[2020-04-20] MEDS: inSUlin ASPART (NovoLOG) 1 UNIT/0.01 ML (CHARGE PER UNIT) SC SCH ×4 (06:11→21:03)
[2020-04-20] MEDS: cefTRIAXone FOR IV USE 1,000 MG in WATER (STERILE) FOR INJECTION 10 ML IV SCH (06:15)
[2020-04-20] MEDS: NS IV 1000 ML 1,000 ML IV SCH ×3 (06:17→16:16)
[2020-04-20 06:28] LABS: BASOPHILS % (AUTO) 0 % (0-10); EOSINOPHILS % (AUTO) 0 % (0-10); HEMATOCRIT 28 % (40-54); HEMOGLOBIN 8.3 G/DL (13.3-17.7); LYMPHOCYTES # (AUTO) 0.9 X 10^3 (1.0-4.0); LYMPHOCYTES % (AUTO) 6 % (12-44); MEAN CORPUSCULAR HEMOGLOBIN 27 PG (25-34); MEAN CORPUSCULAR HGB CONC 30 G/DL (32-36); MEAN CORPUSCULAR VOLUME 91 FL (80-99); MEAN PLATELET VOLUME 10.3 FL (7.4-10.4); MONOCYTES # (AUTO) 0.7 X 10^3 (0.0-1.0); MONOCYTES % (AUTO) 5 % (0-12); NEUTROPHILS # (AUTO) 13.1 X 10^3 (1.8-7.8); NEUTROPHILS % (AUTO) 89 % (42-75); PLATELET COUNT 300 10^3/uL (130-400); WHITE BLOOD COUNT 14.7 10^3/uL (4.3-11.0)
[2020-04-20 06:41] LABS: POTASSIUM 5.1 MMOL/L (3.6-5.0)
[2020-04-20 06:42] LABS: CALCIUM 7.4 MG/DL (8.5-10.1)
[2020-04-20 06:46] LABS: PHOSPHORUS 9.2 MG/DL (2.3-4.7)
[2020-04-20 06:47] LABS: CREATININE SERUM 3.64 MG/DL (0.60-1.30)
[2020-04-20 06:49] LABS: MAGNESIUM 2.5 MG/DL (1.6-2.4)
[2020-04-20] MEDS: dexAMETHasone 6 MG TAB (DECADRON) PO SCH (09:11)
[2020-04-20] MEDS: meTOprolol TARTRATE 50 MG (LOPRESSOR) TAB PO SCH ×2 (09:11→21:02)
[2020-04-20] MEDS: CLOPIDOGREL 75 MG (PLAVIX) TABLET PO SCH (09:11)
[2020-04-20] MEDS: GABAPENTIN 300 MG (NEURONTIN) CAP PO SCH ×2 (09:11→21:02)
[2020-04-20] MEDS: buPROPion SR 150 MG (WELLBUTRIN SR) TAB PO SCH (09:11)
[2020-04-20] MEDS: AZITHROMYCIN 250 MG TAB (ZITHROMAX) PO SCH (09:11)
[2020-04-20] MEDS: ASPIRIN E.C. 81 MG (ECOTRIN) TAB PO SCH (09:11)
--- NOTE | 2020-04-20 10:49 | Cardiology Progress Note ---
Subjective Date Seen by Provider: Apr 20, 2020 Time Seen by Provider: 10:47 Subjective/Events-last exam Patient was seen at bedside sitting comfortably, still complaining of significant diarrhea and getting frustrated. Denied any chest pain, admit mild shortness of breath. Review of Systems General: No Chills, No Night Sweats; Fatigue; No Malaise, No Appetite, No Other HEENT: No Head Aches, No Visual Changes, No Eye Pain, No Ear Pain, No Dysphasia, No Sinus Congestion, No Post Nasal Drip, No Sore Throat, No Other Pulmonary: Dyspnea; No Cough, No Pleuritic Chest Pain, No Other Cardiovascular: No: Chest Pain, Palpitations, Orthopnea, Paroxysmal Noc. Dyspnea, Edema, Lt Headedness, Other Gastrointestinal: Diarrhea Objective-Cardiology Exam Last Set of Vital Signs Vital Signs 04/17/20 04/20/20 04/20/20 19:39 07:39 09:00 Temp 34.2 Pulse 62 Resp 20 B/P (MAP) 105/59 (74) Pulse Ox 96 O2 Delivery Nasal Cannula O2 Flow Rate 3.00 FiO2 90 Capillary Refill : Less Than 3 Seconds I&O Intake and Output 04/20/20 00:00 Intake Total 2850 ml Balance 2850 ml Intake Oral 1840 ml IV Total 1010 ml # Voids 8 # Bowel Movements 1 General: Alert, Oriented X3, Cooperative HEENT: Atraumatic Neck: Supple, No JVD, No Thyromegaly Lungs: Clear to Auscultation, Normal Air Movement Heart: Regular Rate, Normal S1, Normal S2 Abdomen: No Tenderness Extremities: No Edema Skin: No Rashes, No Breakdown, No Significant Lesion Neuro: Normal Speech Psych/Mental Status: Mental Status NL Results Lab Laboratory Tests 04/20/20 06:04 A/P-Cardiology Admission Diagnosis Non-ST elevation myocardial infarction Coronary artery disease Acute respiratory failure Acute renal failure Assessment/Plan Non-ST elevation myocardial infarction, coronary artery disease, had a cardiac catheterization was April 16, [address] Florentino underwent stenting to the OM1 with drug-eluting stent. Known to have chronic total occlusion of the right coronary artery treated conservatively, continue to monitor Acute on chronic renal failure, worsening renal function, Lasix has been on hold, started him on IV fluid and educated him on drinking more fluid Diarrhea, worsening. Questionable infectious, currently on Lipitor 40 mg/ I will hold it due to diarrhea and monitor Electrolyte imbalance, continue on IV fluid and monitor closely Sepsis with COVID positive, improving slowly, feeling better at this time Acute exacerbation of COPD, improving. Continue to monitor Congestive heart failure, acute on chronic left ventricular systolic dysfunction, ischemic cardiomyopathy, I am holding Lasix and monitoring renal function closely. Monitor fluid balance closely. Paroxysmal atrial fibrillation, receiving aspirin, Plavix and Xarelto. Continue to monitor Clinical Quality Measures DVT/VTE Risk/Contraindication: Risk Factor Score Per Nursin RFS Level Per Nursing on Admit: 4+=Very High BETH RODRÍGUEZ MD Apr 20, 2020 10:49
[2020-04-20] MEDS: RT-ALBUTEROL INHALER HFA (VENTOLIN HFA) 18 GM IH SCH ×4 (11:23→21:39)
[2020-04-20] MEDS: ADVAIR HFA 115/21 MCG INHALER 8 GM IH SCH ×2 (11:35→21:37)
[2020-04-20] MEDS: CALCIUM CARBONATE 500 MG (TUMS) TAB.CHEW PO PRN (13:15)
[2020-04-20] MEDS: RIVAROXABAN 15 MG TABLET (XARELTO) PO SCH (16:16)
[2020-04-20] MEDS: RT-ALBUTEROL INHALER HFA (VENTOLIN HFA) 18 GM IH PRN (21:37)
[2020-04-21] MEDS: RT-ALBUTEROL INHALER HFA (VENTOLIN HFA) 18 GM IH SCH ×3 (02:53→15:15)
[2020-04-21 04:35] VITALS: BP 124/64
[2020-04-21] MEDS: NS IV 1000 ML 1,000 ML IV SCH ×3 (04:38→20:51)
--- NOTE | 2020-04-21 05:42 | Progress Note - Hospitalist ---
Subjective HPI/CC On Admission Date Seen by Provider: Apr 21, 2020 Time Seen by Provider: 11:00 CC: Dyspnea with COVID-19 with NSTEMI HPI: This is a 64yoWM known to me from admit 6 weeks ago after NSTEMI who presents to the ER with fever and dyspnea and COVID swabbed +. Patient had just returned from a family reunion in [place] and had been non-compliant with OAC and Plavix. Patient is now off biPAP and on O2 BN. Cardiac cath performed with required stent in RCA. Patient talks on his cell phone most of the time I am in the room wearing PPE. Abx maintained and Decadron. Convalescent Plasma is ordered. Spoke to [facility] and they recommended Remdesivir due to increase complexity of the case and the fact that plasma has not arrived yet. Patient required Ativan to calm him due to severe agitation. ABG reviewed. Subjective/Events-last exam Patient about the same BUN 104 and creat 3.[address] Hughes has increased NS IVF to 150cc/hr Good output No overload noted Breathing is labored when walking Very guarded prognosis Potassium 5.2 No diarrhea since held Kayexelate Holding Xarelto for now due to creatinine EKG ordered 3L/min O2 maintained as he takes at home Monitor closely Review of Systems General: Fatigue, Malaise Pulmonary: Dyspnea Objective Exam Vital Signs Vital Signs Date Time Temp Pulse Resp B/P (MAP) Pulse Ox O2 Delivery O2 Flow Rate FiO2 04/21/20 15:55 36.4 61 22 127/71 (89) 96 Nasal Cannula 3.00 04/17/20 19:39 90 Capillary Refill : Less Than 3 Seconds General Appearance: No Apparent Distress, WD/WN, Anxious, Chronically ill Respiratory: Chest Non Tender, No Accessory Muscle Use, No Respiratory Distr ess, Decreased Breath Sounds, Wheezing Cardiovascular: Regular Rate, Rhythm, No Edema, No Gallop, No JVD, No Murmur, Normal Peripheral Pulses Neurologic/Psychiatric: Alert, Oriented x3, No Motor/Sensory Deficits, Normal Mood/Affect Results/Procedures Lab Laboratory Tests 04/21/20 05:45 Patient resulted labs reviewed. Assessment/Plan Assessment and Plan Assess & Plan/Chief Complaint Assessment: Respiratory failure on bipap COVID 19 + Hypoxia NSTEMI s/p cardiac cath today with stent placement in RCA Non-compliance with OAC and Plavix CHF Plan: ICU Stent per cath IV abx Plasma Remdesivir 04/17/20: Transfer to cardiac step down unit Home meds restarted COVID treatment 04/18/20: Move to [facility] Home meds Nebs O2 04/19/20: Treat elevated potassium Appreciate Dr. Aguiar consult Gentle IV fluids Monitor creatinine Monitor anemia Awaiting plasma for COVID 04/20/20: Supportive care Monitor creatinine Continue treating elevated potassium Maintain oxygen 04/21/20: Increase NS IVF to help renal function Plasma and Remdesivir Monitor creatinine Guarded prognosis Diagnosis/Problems Diagnosis/Problems (1) Acute on chronic respiratory failure Status: Acute (2) Lab test positive for detection of COVID-19 virus Status: Acute (3) Elevated troponin Status: Acute (4) Non-compliance Status: Acute (5) CHF (congestive heart failure) Status: Acute (6) COPD (chronic obstructive pulmonary disease) Status: Acute (7) Diastolic heart failure (8) Non-insulin dependent type 2 diabetes mellitus (9) CAD (coronary artery disease) (10) Oxygen dependent Status: Acute (11) NSTEMI (non-ST elevated myocardial infarction) Status: Acute (12) Hypoxia Status: Acute (13) Elevated troponin Status: Acute Clinical Quality Measures DVT/VTE Risk/Contraindication: Risk Factor Score Per Nursin RFS Level Per Nursing on Admit: 4+=Very High MAURICIO OSEGUERA DO Apr 21, 2020 05:42
[2020-04-21] MEDS: inSUlin ASPART (NovoLOG) 1 UNIT/0.01 ML (CHARGE PER UNIT) SC SCH ×4 (05:52→20:48)
[2020-04-21 06:17] LABS: BASOPHILS % (AUTO) 0 % (0-10); EOSINOPHILS % (AUTO) 0 % (0-10); HEMATOCRIT 28 % (40-54); HEMOGLOBIN 8.4 G/DL (13.3-17.7); LYMPHOCYTES # (AUTO) 0.9 X 10^3 (1.0-4.0); LYMPHOCYTES % (AUTO) 6 % (12-44); MEAN CORPUSCULAR HEMOGLOBIN 28 PG (25-34); MEAN CORPUSCULAR HGB CONC 31 G/DL (32-36); MEAN CORPUSCULAR VOLUME 91 FL (80-99); MEAN PLATELET VOLUME 10.4 FL (7.4-10.4); MONOCYTES # (AUTO) 0.7 X 10^3 (0.0-1.0); MONOCYTES % (AUTO) 4 % (0-12); NEUTROPHILS # (AUTO) 14.6 X 10^3 (1.8-7.8); NEUTROPHILS % (AUTO) 90 % (42-75); PLATELET COUNT 300 10^3/uL (130-400); WHITE BLOOD COUNT 16.2 10^3/uL (4.3-11.0)
[2020-04-21 06:25] LABS: POTASSIUM 5.2 MMOL/L (3.6-5.0)
[2020-04-21 06:26] LABS: CALCIUM 7.7 MG/DL (8.5-10.1)
[2020-04-21 06:31] LABS: CREATININE SERUM 3.53 MG/DL (0.60-1.30); PHOSPHORUS 8.8 MG/DL (2.3-4.7)
[2020-04-21 06:33] LABS: MAGNESIUM 2.5 MG/DL (1.6-2.4)
[2020-04-21 07:35] VITALS: BP 124/66
[2020-04-21] MEDS: ADVAIR HFA 115/21 MCG INHALER 8 GM IH SCH ×2 (08:15→18:23)
[2020-04-21] MEDS: CALCIUM CARBONATE 500 MG (TUMS) TAB.CHEW PO PRN ×2 (08:42→18:32)
[2020-04-21] MEDS: buPROPion SR 150 MG (WELLBUTRIN SR) TAB PO SCH (08:42)
[2020-04-21] MEDS: GABAPENTIN 300 MG (NEURONTIN) CAP PO SCH ×2 (08:42→20:48)
[2020-04-21] MEDS: dexAMETHasone 6 MG TAB (DECADRON) PO SCH (08:42)
[2020-04-21] MEDS: meTOprolol TARTRATE 50 MG (LOPRESSOR) TAB PO SCH ×2 (08:42→20:48)
[2020-04-21] MEDS: ASPIRIN E.C. 81 MG (ECOTRIN) TAB PO SCH (08:42)
[2020-04-21] MEDS: CLOPIDOGREL 75 MG (PLAVIX) TABLET PO SCH (08:44)
--- NOTE | 2020-04-21 08:51 | NUR ---
THIS RN DROPPED PLAVIX I TOOK OUT OF OMNICELL. DENIS Molina RN PULLED ANOTHER FOR ME. RN WASTED PLAVIX IN PTS ROOM DUE TO COVID.
--- NOTE | 2020-04-21 11:30 | NUR ---
DR RODRÍGUEZ ORDERED EKG ON PT THAT RN WILL PERFORM THEN TEXT DR WITH RESULTS. HE ALSO ORDERED TO NOT ADMIN KAYEXELATE DUE TO DEHYDRATION. PT REPORTED TO RN THAT THERE HE HAS NOT HAD DIARRHEA TODAY. DR RODRÍGUEZ ORDERED TO INCREASE NS TO 150 CC/HR, BUN IS 104 FROM THIS AM LAB. DR RODRÍGUEZ SAID TO HOLD XARELTO, PT REMAINS ON PLAVIX. WILL MAKE NOTE RE EKG WHEN DONE.
--- NOTE | 2020-04-21 11:50 | Cardiology Progress Note ---
Subjective Date Seen by Provider: Apr 21, 2020 Time Seen by Provider: 11:48 Subjective/Events-last exam Patient is still having diarrhea, no reported chest pain or shortness of breath Review of Systems General: No Chills, No Night Sweats; Fatigue, Malaise; No Appetite, No Other HEENT: No Head Aches, No Visual Changes, No Eye Pain, No Ear Pain, No Dysphasia, No Sinus Congestion, No Post Nasal Drip, No Sore Throat, No Other Pulmonary: No Dyspnea, No Cough, No Pleuritic Chest Pain, No Other Cardiovascular: Edema; No: Chest Pain, Palpitations, Orthopnea, Paroxysmal Noc. Dyspnea, Lt Headedness, Other Gastrointestinal: Diarrhea Objective-Cardiology Exam Last Set of Vital Signs Vital Signs 04/17/20 04/21/20 04/21/20 04/21/20 19:39 07:35 08:15 09:00 Temp 37.0 Pulse 72 Resp 20 B/P (MAP) 124/66 (85) Pulse Ox 93 O2 Delivery Nasal Cannula O2 Flow Rate 3.00 FiO2 90 Capillary Refill : Less Than 3 Seconds I&O Intake and Output 04/21/20 00:00 Intake Total 1450 ml Balance 1450 ml Intake Oral 1440 ml IV Total 10 ml # Voids 9 # Bowel Movements 3 General: Alert, Cooperative HEENT: Atraumatic Neck: Supple, No JVD, No Thyromegaly Lungs: Normal Air Movement Heart: Regular Rate Extremities: Other (edema) Neuro: Normal Speech Psych/Mental Status: Mental Status NL Results Lab Laboratory Tests 04/21/20 05:45 A/P-Cardiology Admission Diagnosis Non-ST elevation myocardial infarction Coronary artery disease Acute respiratory failure Acute renal failure Assessment/Plan Non-ST elevation myocardial infarction, coronary artery disease, had a cardiac c atheterization was April 16, [address] Florentino underwent stenting to the OM1 with drug-eluting stent. Known to have chronic total occlusion of the right coronary artery treated conservatively, continue to monitor Acute on chronic renal failure, continue with IV fluid and monitor closely Diarrhea, worsening. Questionable infectious, Lipitor is on hold, receiving Imodium, continue with aggressive IV hydration Electrolyte imbalance, continue on IV fluid and monitor closely, managed by pr imary care physician Sepsis with COVID positive, improving slowly, feeling better at this time Acute exacerbation of COPD, improving. Continue to monitor Congestive heart failure, acute on chronic left ventricular systolic dysfunction, ischemic cardiomyopathy, I am holding Lasix and monitoring renal function closely. Monitor fluid balance closely. Paroxysmal atrial fibrillation, receiving aspirin, Plavix, hold Xarelto for now, evaluate EKG Clinical Quality Measures DVT/VTE Risk/Contraindication: Risk Factor Score Per Nursin RFS Level Per Nursing on Admit: 4+=Very High BETH RODRÍGUEZ MD Apr 21, 2020 11:50 am
[2020-04-21 12:05] VITALS: BP 132/78
[2020-04-21] MEDS: ACETAMINOPHEN 500 MG TAB (TYLENOL) PO PRN ×2 (12:38→20:48)
[2020-04-21] MEDS: RT-ALBUTEROL INHALER HFA (VENTOLIN HFA) 18 GM IH PRN ×2 (12:42→18:23)
--- NOTE | 2020-04-21 13:30 | NUR ---
AT APPROX 1230 TODAY THIS RN WAS IN PTS ROOM TO DO EKG WHEN PT WENT TO BATHROOM TO URINATE ON 3 L 02 NC. DURING THIS TIME IN BATHROOM HE BECAME INCREASINGLY SOA, DIZZY, DIAPHORTIC, AND WEAK. THIS NURSE ADMINISTRATIVE ANALYST TOOK 02 SATS WHICH HAD DROPPED TO 70 %. RN TURNED UP WALL 02 TO 10 L AND PT MADE IT SAFELY TO SIT ON EDGE OF BED. 02 SATS INCREASED QUICKLY TO 100% AND RN WAS ABLE TO TITRATE 02 DOWN TO 3L AND PT SATING IN MID TO UPPER 9O'S. DR OSEGUERA AND DR RODRÍGUEZ BOTH NOTIFIED OF EVENT. DR OSEGUERA WAS CONCERNED ABOUT INCREASE IN IV FLUID RATE AND WANTED TO MAKE SURE DR RODRÍGUEZ WAS AWARE. RN LET DR RODRÍGUEZ KNOW OF DR OSEGUERA'S CONCERN AND DR RODRÍGUEZ SAID THAT HE WANTED PT TO MANAGE RENAL FAILURE AT THIS TIME AND HE IF CONTINUED TO BE HYPOEMIC HE WOULD TREAT WITH LASIX. DR OSEGUERA MADE AWARE.
[2020-04-21 15:55] VITALS: BP 127/71
--- NOTE | 2020-04-21 17:28 | NUR ---
THIS RN AND JUNG COATS AND RT HAVE BEEN CHECKING ON PT AT LEAST HOURLY IF NOT MORE TO MAKE SURE HIS 02 SATURATION REMAINS IN THE MID 90'S AND NOT HAVING INCREASED SOB OR LUNG SOUNDS. PT HAS BEEN SITTING IN BED OR IN CHAIR AND DENIES ANY SOB. HE SAYS HE FEELS FINE. NO CHANGES TO LUNG SOUNDS AT THIS TIME EITHER. WILL CONTINUE TO MONITOR.
--- NOTE | 2020-04-21 18:47 | NUR ---
RN WENT TO CHECK ON PT AT APPROX 1820. RT HAD JUST LEFT ROOM AFTER ADMIN INH. PT REPORTS HE IS BREATHING WELL BUT IS COUGHING UP PHLEGM. RN CHECKED LUNGS SOUNDS AND HE WAS COARSE THROUGHOUT. 02 SATS ON 3 L WERE AT 99%. RN EXPLAINED TO PT THAT THE INHALER MIGHT BE CAUSING THIS. WILL PASS ON TO PM RN.
[2020-04-21 20:08] VITALS: BP 150/83
[2020-04-21] MEDS: LORazepam 0.5 MG (ATIVAN) TABLET PO PRN (20:48)
[2020-04-21 23:15] VITALS: BP 131/90
[2020-04-22] VITALS (15 sets, daily range): BP systolic 118–184; BP diastolic 67–111
[2020-04-22] MEDS: RT-ALBUTEROL INHALER HFA (VENTOLIN HFA) 18 GM IH PRN ×2 (02:19→13:54)
[2020-04-22] MEDS: inSUlin ASPART (NovoLOG) 1 UNIT/0.01 ML (CHARGE PER UNIT) SC SCH ×4 (05:22→20:08)
[2020-04-22] MEDS: NS IV 1000 ML 1,000 ML IV SCH ×2 (05:23→13:54)
[2020-04-22 05:31] LABS: BASOPHILS % (AUTO) 0 % (0-10); EOSINOPHILS % (AUTO) 0 % (0-10); HEMATOCRIT 30 % (40-54); HEMOGLOBIN 9.1 G/DL (13.3-17.7); LYMPHOCYTES % (AUTO) 5 % (12-44); MEAN CORPUSCULAR HEMOGLOBIN 28 PG (25-34); MEAN CORPUSCULAR HGB CONC 30 G/DL (32-36); MEAN CORPUSCULAR VOLUME 92 FL (80-99); MONOCYTES # (AUTO) 1.1 X 10^3 (0.0-1.0); MONOCYTES % (AUTO) 6 % (0-12); NEUTROPHILS # (AUTO) 16.9 X 10^3 (1.8-7.8); NEUTROPHILS % (AUTO) 89 % (42-75); PLATELET COUNT 327 10^3/uL (130-400); WHITE BLOOD COUNT 19.1 10^3/uL (4.3-11.0)
[2020-04-22 05:48] LABS: ALBUMIN 3.6 GM/DL (3.2-4.5); POTASSIUM 5.6 MMOL/L (3.6-5.0)
[2020-04-22 05:51] LABS: TOTAL PROTEIN 6.8 GM/DL (6.4-8.2)
[2020-04-22 05:53] LABS: BILIRUBIN,TOTAL 0.3 MG/DL (0.1-1.0)
[2020-04-22 05:54] LABS: PHOSPHORUS 8.2 MG/DL (2.3-4.7)
[2020-04-22 05:55] LABS: CREATININE SERUM 3.47 MG/DL (0.60-1.30)
[2020-04-22 05:58] LABS: MAGNESIUM 2.5 MG/DL (1.6-2.4)
--- NOTE | 2020-04-22 06:52 | Progress Note - Hospitalist ---
Subjective HPI/CC On Admission Date Seen by Provider: Apr 22, 2020 Time Seen by Provider: 10:45 CC: Dyspnea with COVID-19 with NSTEMI HPI: This is a 64yoWM known to me from admit 6 weeks ago after NSTEMI who presents to the ER with fever and dyspnea and COVID swabbed +. Patient had just returned from a family reunion in [place] and had been non-compliant with OAC and Plavix. Patient is now off biPAP and on O2 BNC. Cardiac cath performed with required stent in RCA. Patient talks on his cell phone most of the time I am in the room wearing PPE. Abx maintained and Decadron. Convalescent Plasma is ordered. Spoke to [facility] and they recommended Remdesivir due to increase complexity of the case and the fact that plasma has not arrived yet. Patient required Ativan to calm him due to severe agitation. ABG reviewed. Subjective/Events-last exam Patient was doing well even though BUN and creatinine continue to rise Dr Hughes and I discussed the case IVF maintained 35% EF on ECHO makes it difficult to manage No oliguria noted Diarrhea improved After rounds RN called me with patient in more distress so biPAP placed and patient was sent to ICU. [facility] and [facility] in [place] are all on diversion [place], [place] was updated and I spoke to ICU physician but since he is not intubated he would go to Hospitalist. Review of Systems Pulmonary: Dyspnea Objective Exam Vital Signs Vital Signs Date Time Temp Pulse Resp B/P (MAP) Pulse Ox O2 Delivery O2 Flow Rate FiO2 04/22/20 16:01 71 04/22/20 14:58 94 Nasal Cannula 3.50 04/22/20 11:01 35.6 26 147/76 (99) 04/17/20 19:39 90 Capillary Refill : Less Than 3 Seconds General Appearance: No Apparent Distress, WD/WN, Anxious, Chronically ill, Obese Respiratory: No Accessory Muscle Use, No Respiratory Distress, Crackles, Decreased Breath Sounds, Wheezing Cardiovascular: Regular Rate, Rhythm, No Gallop, No JVD, No Murmur, Normal Peripheral Pulses Extremity: Pedal Edema Neurologic/Psychiatric: Alert, Oriented x3, No Motor/Sensory Deficits, Normal Mood/Affect Results/Procedures Lab Laboratory Tests 04/22/20 05:22 Patient resulted labs reviewed. Assessment/Plan Assessment and Plan Assess & Plan/Chief Complaint Assessment: Respiratory failure on bipap COVID 19 + Hypoxia NSTEMI s/p cardiac cath today with stent placement in RCA Non-compliance with OAC and Plavix CHF Plan: ICU Stent per cath IV abx Plasma Remdesivir 04/17/20: Transfer to cardiac step down unit Home meds restarted COVID treatment 04/18/20: Move to [facility] Home meds Nebs O2 04/19/20: Treat elevated potassium Appreciate Dr. Aguiar consult Gentle IV fluids Monitor creatinine Monitor anemia Awaiting plasma for COVID 04/20/20: Supportive care Monitor creatinine Continue treating elevated potassium Maintain oxygen 04/21/20: Increase NS IVF to help renal function Plasma and Remdesivir Monitor creatinine Guarded prognosis 04/22/20: Transfer to [facility] for Nephrology Diagnosis/Problems Diagnosis/Problems (1) Acute on chronic respiratory failure Status: Acute (2) Lab test positive for detection of COVID-19 virus Status: Acute (3) Elevated troponin Status: Acute (4) Non-compliance Status: Acute (5) CHF (congestive heart failure) Status: Acute (6) COPD (chronic obstructive pulmonary disease) Status: Acute (7) Diastolic heart failure (8) Non-insulin dependent type 2 diabetes mellitus (9) CAD (coronary artery disease) (10) Oxygen dependent Status: Acute (11) NSTEMI (non-ST elevated myocardial infarction) Status: Acute (12) Hypoxia Status: Acute (13) Elevated troponin Status: Acute Clinical Quality Measures DVT/VTE Risk/Contraindication: Risk Factor Score Per Nursin RFS Level Per Nursing on Admit: 4+=Very High MAURICIO OSEGUERA DO Apr 22, 2020 06:52
[2020-04-22] MEDS ORDERED: BUMETANIDE 1 MG/4 ML (BUMEX) VIAL IV ONE ×2 (07:45→15:30)
[2020-04-22] MEDS: dexAMETHasone 6 MG TAB (DECADRON) PO SCH (08:21)
[2020-04-22] MEDS: meTOprolol TARTRATE 50 MG (LOPRESSOR) TAB PO SCH ×3 (08:21→20:06)
[2020-04-22] MEDS: CLOPIDOGREL 75 MG (PLAVIX) TABLET PO SCH (08:21)
[2020-04-22] MEDS: GABAPENTIN 300 MG (NEURONTIN) CAP PO SCH ×2 (08:21→20:06)
[2020-04-22] MEDS: ASPIRIN E.C. 81 MG (ECOTRIN) TAB PO SCH (08:21)
[2020-04-22] MEDS: RT-ALBUTEROL INHALER HFA (VENTOLIN HFA) 18 GM IH SCH ×4 (08:48→22:54)
[2020-04-22] MEDS: ADVAIR HFA 115/21 MCG INHALER 8 GM IH SCH ×2 (08:49→18:45)
--- NOTE | 2020-04-22 08:59 | Diagnostic Imaging Report ---
INDICATION: Cough and COVID positive. Time of exam: 8:13 AM Correlation is made with prior chest from 04/16/2020. Bilateral infiltrates do appear to be improved on today's study. There continues to be some patchy infiltrate in the bases as well as questionable small effusions. No pneumothorax is seen. IMPRESSION: Overall improved aeration of both lungs when compared with examination from 04/16/2020. Dictated by: Dictated on workstation # [id number]
--- NOTE | 2020-04-22 11:26 | Cardiology Progress Note ---
Subjective Date Seen by Provider: Apr 22, 2020 Time Seen by Provider: 11:24 Subjective/Events-last exam Patient is sitting up in a chair, having worsening dyspnea and fatigue. Review of Systems General: No Chills, No Night Sweats; Fatigue; No Malaise, No Appetite, No Other HEENT: No Head Aches, No Visual Changes, No Eye Pain, No Ear Pain, No Dysphasia, No Sinus Congestion, No Post Nasal Drip, No Sore Throat, No Other Pulmonary: Dyspnea; No Cough, No Pleuritic Chest Pain, No Other Cardiovascular: Edema; No: Chest Pain, Palpitations, Orthopnea, Paroxysmal Noc. Dyspnea, Lt Headedness, Other Objective-Cardiology Exam Last Set of Vital Signs Vital Signs 04/17/20 04/22/20 19:39 11:01 Temp 35.6 Pulse 65 Resp 26 B/P (MAP) 147/76 (99) Pulse Ox 97 O2 Delivery Nasal Cannula O2 Flow Rate 3.00 FiO2 90 Capillary Refill : Less Than 3 Seconds I&O Intake and Output 04/22/20 00:00 Intake Total 5790 ml Output Total 300 ml Balance 5490 ml Intake Oral 2790 ml IV Total 3000 ml Output Urine Total 300 ml # Voids 6 General: Alert, Cooperative HEENT: Atraumatic Neck: Supple, No JVD, No Thyromegaly Lungs: Normal Air Movement Heart: Regular Rate Extremities: Other (edema) Neuro: Normal Speech Psych/Mental Status: Mental Status NL Results Lab Laboratory Tests 04/22/20 05:22 A/P-Cardiology Admission Diagnosis Non-ST elevation myocardial infarction Coronary artery disease Acute respiratory failure Acute renal failure Assessment/Plan Non-ST elevation myocardial infarction, coronary artery disease, had a cardiac catheterization was April 16, [address] Florentino underwent stenting to the OM1 with drug-eluting stent. Known to have chronic total occlusion of the right coronary artery treated conservatively, continue to monitor Acute on chronic renal failure, receiving IV fluid. I gave him Bumex one dose this morning with mild response. Continue to monitor renal function Metabolic acidosis, uremia. Worsening secondary to renal failure, discussed with Dr. Guzman management plan, probably will need nephrology evaluation Persistent diarrhea. Questionable infectious, Lipitor is on hold, receiving Imodium, continue with aggressive IV hydration, managed by primary care physician Sepsis with COVID positive, improving slowly, feeling better at this time Acute exacerbation of COPD, improving. Continue to monitor Congestive heart failure, acute on chronic left ventricular systolic dysfunction, ischemic cardiomyopathy, I am holding Lasix and monitoring renal function closely. Monitor fluid balance closely. Paroxysmal atrial fibrillation, receiving aspirin, Plavix, hold Xarelto for now, evaluate EKG Clinical Quality Measures DVT/VTE Risk/Contraindication: Risk Factor Score Per Nursin RFS Level Per Nursing on Admit: 4+=Very High BETH RODRÍGUEZ MD Apr 22, 2020 11:25
[2020-04-22] MEDS: CALCIUM CARBONATE 500 MG (TUMS) TAB.CHEW PO PRN (12:06)
[2020-04-22] MEDS: guaiFENesin (MUCINEX) 600 MG TAB PO SCH ×2 (12:06→20:06)
[2020-04-22] MEDS: LORazepam 0.5 MG (ATIVAN) TABLET PO PRN (13:53)
[2020-04-22 16:24] LABS: ABG BASE EXCESS -8.9 MMOL/L (-2.5-2.5); ABG OXYGEN SATURATION 95 % (94-100); ABG PCO2 37 MMHG (35-45); ABG PO2 79 MMHG (79-93); ABG TCO2 18.1 MMOL/L (21.0-31.0)
[2020-04-22 16:25] LABS: ALLENS TEST YES-POS; INSPIRED O2 35%; PATIENT TEMP 35.6; VENTILATOR NO
[2020-04-22 16:28] LABS: ABG PH 7.27 (7.37-7.43)
--- NOTE | 2020-04-22 16:31 | Discharge Summary ---
Discharge Summary Hospital Course Was the Problem List Reviewed?: Yes Problems/Dx: (1) Lab test positive for detection of COVID-19 virus Status: Acute (2) Acute on chronic respiratory failure Status: Acute (3) Elevated troponin Status: Acute (4) Non-compliance Status: Acute (5) CHF (congestive heart failure) Status: Acute (6) COPD (chronic obstructive pulmonary disease) Status: Acute (7) Diastolic heart failure (8) Non-insulin dependent type 2 diabetes mellitus (9) CAD (coronary artery disease) (10) Oxygen dependent Status: Acute (11) NSTEMI (non-ST elevated myocardial infarction) Status: Acute (12) Hypoxia Status: Acute (13) Elevated troponin Status: Acute (14) Renal failure (ARF), acute on chronic (15) Elevated BUN (16) Hyperkalemia Hospital Course Date of Admission: Apr 16, 2020 at 05:30 Admission Diagnosis : Family Physician/Provider: Nel Robles Aprn Date of Discharge: 04/22/20 Discharge Diagnosis: ARF on CRI, Oliguria, Respiratory insufficiency requiring biPAP at DC, CHF systolic type EF 35% ischemic type, s/p NSTEMI s/p stent RCA 04/18/20, AECOPD Hospital Course: Patient had a very complicated course after admitted with hypoxia and fever and COVID + on swab with AECOPD and elevated troponin with NSTEMI. Patient placed in ICU on biPAP given convalescent plasma and Decadron and Remdesivir along with ICU consultation. Patient was stabilized and was taken to label folder and stent placed in RCA. Patient ultimately sent to floor and did well until Day # 9 of COVID when he had increasing BUN and creatinine and oliguria along with ischemic cardiomyopathy EF 35% unresolved after IVF given for volume depletion from diarrhea due to Kayexelate given for hyperkalemia and having no Nephrology consultation services he was referred to [facility] and they graciously accepted him in transfer. Labs and Pending Lab Test: Laboratory Tests 04/21/20 20:16: Glucometer 343H 04/22/20 05:21: Glucometer 172H 04/22/20 05:22: White Blood Count 19.1H, Red Blood Count 3.26L, Hemoglobin 9.1L, Hematocrit 30L, Mean Corpuscular Volume 92, Mean Corpuscular Hemoglobin 28, Mean Corpuscular Hemoglobin Concent 30L, Red Cell Distribution Width 17.8H, Platelet Count 327, Mean Platelet Volume 10.0, Neutrophils (%) (Auto) 89H, Lymphocytes (%) (Auto) 5L , Monocytes (%) (Auto) 6, Eosinophils (%) (Auto) 0, Basophils (%) (Auto) 0, Neutrophils # (Auto) 16.9H, Lymphocytes # (Auto) 1.0, Monocytes # (Auto) 1.1H, Eosinophils # (Auto) 0.0, Basophils # (Auto) 0.0, Sodium Level 136, Potassium Level 5.6H, Chloride Level 106, Carbon Dioxide Level 16L, Anion Gap 14, Blood Urea Nitrogen 107*H, Creatinine 3.47H, Estimat Glomerular Filtration Rate 18, B UN/Creatinine Ratio 31, Glucose Level 165H, Calcium Level 8.0L, Corrected C alcium 8.3L, Phosphorus Level 8.2H, Magnesium Level 2.5H, Total Bilirubin 0.3, Aspartate Amino Transf (AST/SGOT) 99H, Alanine Aminotransferase (ALT/SGPT) 397H, Alkaline Phosphatase 176H, Total Protein 6.8, Albumin 3.6 04/22/20 10:59: Glucometer 245H 04/22/20 16:19: Blood Gas Puncture Site [Pending], Blood Gas Patient Temperature [Pending], Arterial Blood pH [Pending], Arterial Blood Partial Pressure CO2 [Pending], Arterial Blood Partial Pressure O2 [Pending], Arterial Blood HCO3 [Pending], Arterial Blood Total CO2 [Pending], Arterial Blood Oxygen Saturation [Pending], Arterial Blood Base Excess [Pending], Al Test [Pending], Blood Gas Ventilator Setting [Pending], Blood Gas Inspired Oxygen [Pending] Microbiology 04/16/20 Gram Stain - Final, Complete 04/16/20 Sputum Culture - Final, Complete Usual upper respiratory ortiz YEAST 04/16/20 Blood Culture - Final, Complete No growth Home Meds Active Advair Hfa 115-21 Mcg Inhaler (Fluticasone/Salmeterol) 12 Gm Hfa.aer.ad 0 Puff IH RTBID Reported Glipizide 5 Mg Tablet 5 Mg PO DAILY Furosemide 80 Mg Tablet 80 Mg PO DAILY Bupropion HCl Sr (Bupropion HCl) 150 Mg Tablet.er 150 Mg PO DAILY Lantus (Insulin Glargine,Hum.rec.anlog) 100 Unit/1 Ml Vial 18 Unit SQ DAILY Atorvastatin Calcium 40 Mg Tablet 40 Mg PO DAILY Metoprolol Tartrate 50 Mg Tablet 50 Mg PO BID Gabapentin 600 Mg Tablet 600 Mg PO TID Amlodipine Besylate 5 Mg Tablet 5 Mg PO DAILY Plavix (Clopidogrel Bisulfate) 75 Mg Tablet 75 Mg PO DAILY Lisinopril 40 Mg Tablet 40 Mg PO DAILY Xarelto (Rivaroxaban) 20 Mg Tablet 20 Mg PO DAILY Assessment/Pt Instructions [facility] Discharge Planning: <30 minutes discharge planning Discharge Physical Examination Vital Signs Vital Signs Date Time Temp Pulse Resp B/P (MAP) Pulse Ox O2 Delivery O2 Flow Rate FiO2 04/22/20 16:01 71 04/22/20 16:00 14 151/91 (111) 97 NIV Bilevel 35.00 04/22/20 11:01 35.6 04/17/20 19:39 90 General Appearance: WD/WN, Anxious, Chronically ill, Mild Distress Respiratory: Decreased Breath Sounds, Rales, Wheezing Neurologic/Psychiatric: Alert, Oriented x3, No Motor/Sensory Deficits, Normal Mood/Affect Allergies: Coded Allergies: No Known Drug Allergies (Unverified , 02/07/13) Discharge Summary Date of Admission Apr 16, 2020 at 05:30 Date of Discharge Admission Diagnosis Assessment: Respiratory failure on bipap COVID 19 + Hypoxia NSTEMI s/p cardiac cath today with stent placement in RCA Non-compliance with OAC and Plavix CHF Plan: ICU Stent per cath IV abx Plasma Remdesivir FROM MY H&P/DC 03/07/20 (1) NSTEMI (non-ST elevated myocardial infarction) Status: Acute (2) HTN (hypertension) Status: Acute (3) Hypoxia Status: Acute (4) CHF (congestive heart failure) Status: Acute (5) IDDM (insulin dependent diabetes mellitus) Status: Acute Hospital Course Date of Admission: Mar 06, 2020 at 00:40 Admission Diagnosis : Family Physician/Provider: Nel Robles Aprn Date of Discharge: 03/07/20 Discharge Diagnosis: Assessment: Chest pain NSTEMI HTN COPD Smoker COVID swabbed Plan: Cardiology appreciated COVID swab pending Hospital Course: Hospital Course: Pt had a short hospital course. He was admitted for chest pain and Non STEMI. He was a covid swab which was negative and he was treated for volume overload with IV Lasix and hypoxia did resolve. Overall pt did very well, he felt good enough to be going home and he will be going home on home O2 at 2.5 liters on exertion and will have close follow up with cardiology and [facility]. His Covid swab was negative. Discharge Diagnosis Assessment: Respiratory failure on bipap COVID 19 + Hypoxia NSTEMI s/p cardiac cath today with stent placement in RCA Non-compliance with OAC and Plavix CHF Plan: ICU Stent per cath IV abx Plasma Remdesivir 04/17/20: Transfer to cardiac step down unit Home meds restarted COVID treatment 04/18/20: Move to [facility] Home meds Nebs O2 04/19/20: Treat elevated potassium Appreciate Dr. Aguiar consult Gentle IV fluids Monitor creatinine Monitor anemia Awaiting plasma for COVID 04/20/20: Supportive care Monitor creatinine Continue treating elevated potassium Maintain oxygen 04/21/20: Increase NS IVF to help renal function Plasma and Remdesivir Monitor creatinine Guarded prognosis 04/22/20: Transfer to [facility] for Nephrology (1) Acute on chronic respiratory failure Status: Acute (2) Lab test positive for detection of COVID-19 virus Status: Acute (3) Elevated troponin Status: Acute (4) Non-compliance Status: Acute (5) CHF (congestive heart failure) Status: Acute (6) COPD (chronic obstructive pulmonary disease) Status: Acute (7) Diastolic heart failure (8) Non-insulin dependent type 2 diabetes mellitus (9) CAD (coronary artery disease) (10) Oxygen dependent Status: Acute (11) NSTEMI (non-ST elevated myocardial infarction) Status: Acute (12) Hypoxia Status: Acute (13) Elevated troponin Status: Acute Clinical Quality Measures DVT/VTE Risk/Contraindication: Risk Factor Score Per Nursin RFS Level Per Nursing on Admit: 4+=Very High MAURICIO OSEGUERA DO Apr 22, 2020 16:30
--- NOTE | 2020-04-22 16:52 | NUR ---
APPROX 1530 RN WENT INTO PTS ROOM TO GET V/S AND ACCUCHECK. PT WAS LABORING TO BREATHE AND ASKED IF HE COULD BE ON A BIPAP. DR OSEGUERA NOTIFIED AND ORDERED TO TRANSFER TO ICU. FLOOR GRINDER, FABRICE, NOTIFIED AND ASSIGNED HIM TO ROOM -5. DR OSEGUERA ALSO ORDERED ABG, CONSULT EICU AND BUMEX 1 MG. THIS RN WITH THE HELP OF PCT SG AND DENIS FENG, WE TRANSFERRED HIM IN HIS BED TO ICU. THIS RN AND PCT WERE IN FULL PPE WHILE DENIS WAS THE 'CLEAN'. RN GAVE REPORT TO FEEDLOT MANAGERJUNG BRIONES WHO TOOK OVER PT CARE.
--- NOTE | 2020-04-22 16:56 | NUR ---
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
[2020-04-22 16:57] LABS: HEMOGLOBIN 8.6 G/DL (13.3-17.7); MEAN PLATELET VOLUME 10.2 FL (7.4-10.4); WHITE BLOOD COUNT 14.5 10^3/uL (4.3-11.0)
--- NOTE | 2020-04-22 17:24 | NUR ---
LATE ENTRY: PT TO ROOM ICU 5 VIA BED REPORT RECEIVED FROM RN FABRICE. PT DIAPHORETIC INCREASE WORK OF BREATHING NOTED, RT IN ROOM UPON TRANSFER, PT PLACED ON BIPAP WITH RT ORDERED SETTING, ABG DRAWN. PT ALERT AND ORIENTED, VOICES NO C/O OF PAIN, THIS RN NOTED PT'S ABDOMEN EXTENDED AND BOWEL SOUNDS ABSENT, PT DID HAVE A SMALL SMEAR OF STOOL ON PAD BUT PT DENIES HE'S PASSING GAS. 14 DANISH CUDETE GOODWIN PLACED USING ASEPTIC TECHNIQUE. 1550 E-ICU NOTIFIED OF PT'S TRANSFER, THIS RN SPOKE TO EICU COVERING DOCTOR AND NEW ORDERS RECEIVED. 1630 E-ICU NOTIFIED OF CRITICAL ABG RESULTS. THIS RN HAS REMAINED IN ROOM AND IS IN ROOM AT PRESENT TIME, PT'S BROTHER GENIA CALLED PER PT REQUEST AND UPDATED ON PT'S CONDITION. PT REMAINS ALERT AND ORIENTED, STATES " MY BREATHING IS BETTER.", CALL LIGHT AND OTHER PERSONAL ITEMS WITHIN REACH WILL CONTINUE TO MONITOR.
[2020-04-22 17:36] LABS: ALBUMIN 3.4 GM/DL (3.2-4.5); POTASSIUM 5.7 MMOL/L (3.6-5.0)
[2020-04-22 17:39] LABS: TOTAL PROTEIN 6.8 GM/DL (6.4-8.2)
[2020-04-22 17:40] LABS: BILIRUBIN,TOTAL 0.4 MG/DL (0.1-1.0)
[2020-04-22 17:42] LABS: CREATININE SERUM 3.35 MG/DL (0.60-1.30)
[2020-04-22 17:45] LABS: MAGNESIUM 2.4 MG/DL (1.6-2.4)
[2020-04-22] MEDS ORDERED: D5W 1000 ML IV SOLUTION 1,000 ML ONE (17:52)
--- NOTE | 2020-04-22 17:59 | Diagnostic Imaging Report ---
INDICATION: Labored breathing. Abdominal distention. EXAMINATION: Abdomen, 04/22/2020. FINDINGS: There is scattered air and stool throughout the colon to the visualized distal colon. No dilated loops of bowel are seen. No free air appreciated however the upper abdomen is not included. IMPRESSION: Limited evaluation of visualized bowel gas pattern, nonobstructive. Dictated by: Dictated on workstation # [id number]
--- NOTE | 2020-04-22 18:06 | Diagnostic Imaging Report ---
INDICATION: Injury, shoulder pain. EXAMINATION: Portable erect AP chest at 5:24 p.m. FINDINGS: The cardiomegaly noted on the exam performed earlier today at 8:13 AM is again evident and not significantly changed. However, the central pulmonary vascularity and the interstitial densities in both lungs do seem more prominent than on the prior study. I suspect that there is now an element of greater pulmonary congestion than on the previous exam. There is still atelectasis/infiltrate and fluid involving each lung base although the left lung base may be somewhat better aerated. The mediastinum is not widened. The osseous structures are intact. IMPRESSION: The appearance of the chest has worsened since the prior study as there does seem to be somewhat greater pulmonary congestion than noted on the prior exam. There is persistent involvement of both lung bases by atelectasis/infiltrate and fluid as well. A follow up study would be recommended for continued evaluation. Dictated by: Dictated on workstation # [id number]
[2020-04-22] MEDS: SODIUM BICARBONATE 8.4% VIAL 100 MEQ in D5W 1000 ML IV SOLUTION 1,000 ML IV SCH (18:16)
--- NOTE | 2020-04-22 18:32 | NUR ---
1806 DR RODRÍGUEZ NOTIFIED OF CRITICAL TROPONIN RESULTS 1829 E-ICU CALLED THIS RN SPOKE TO REGARDING ALL CRITICAL LAB RESULTS. AWAITING NEW ORDERS
[2020-04-22] MEDS ORDERED: SODIUM BICARB 8.4% 50 MEQ/50 ML (ABBOTT) SYR IV ONE (18:45)
[2020-04-22] MEDS ORDERED: inSUlin (REGULAR) HUMAN 1 UNIT/0.01 ML (CHARGE PER UNIT) IV ONE (18:45)
[2020-04-22] MEDS ORDERED: CALCIUM CHLORIDE 1 GM/10 ML (IMS) SYR IV ONE (18:45)
[2020-04-22] MEDS ORDERED: DEXTROSE 50% 50 ML (IMS) SYR IV ONE (18:45)
[2020-04-22] MEDS ORDERED: SODIUM BICARB 8.4% 50 MEQ/50 ML VIAL ONE (18:47)
--- NOTE | 2020-04-22 20:55 | NUR ---
THIS RN SPOKE WITH ADELA FROM [facility]. SHE INFORMED THIS RN THAT PATIENT IS 3RD ON THE LIST WAITING FOR PLACEMENT AND IT MIGHT NOT HAPPEN TONIGHT. SHE STATED WILL UPDATE THINGS CHANGE.
[2020-04-23] VITALS (28 sets, daily range): BP systolic 117–193; BP diastolic 75–132
[2020-04-23 01:24] LABS: BASOPHILS % (AUTO) 0 % (0-10); EOSINOPHILS % (AUTO) 0 % (0-10); HEMATOCRIT 27 % (40-54); HEMOGLOBIN 8.3 G/DL (13.3-17.7); LYMPHOCYTES # (AUTO) 0.6 X 10^3 (1.0-4.0); LYMPHOCYTES % (AUTO) 5 % (12-44); MEAN CORPUSCULAR HEMOGLOBIN 28 PG (25-34); MEAN CORPUSCULAR HGB CONC 31 G/DL (32-36); MEAN CORPUSCULAR VOLUME 91 FL (80-99); MEAN PLATELET VOLUME 9.9 FL (7.4-10.4); MONOCYTES # (AUTO) 0.9 X 10^3 (0.0-1.0); MONOCYTES % (AUTO) 7 % (0-12); NEUTROPHILS # (AUTO) 11.6 X 10^3 (1.8-7.8); NEUTROPHILS % (AUTO) 88 % (42-75); PLATELET COUNT 250 10^3/uL (130-400); WHITE BLOOD COUNT 13.1 10^3/uL (4.3-11.0)
[2020-04-23 01:35] LABS: ALBUMIN 3.2 GM/DL (3.2-4.5)
[2020-04-23 01:38] LABS: TOTAL PROTEIN 6.7 GM/DL (6.4-8.2)
[2020-04-23 01:40] LABS: BILIRUBIN,TOTAL 0.3 MG/DL (0.1-1.0)
[2020-04-23 01:41] LABS: PHOSPHORUS 8.1 MG/DL (2.3-4.7)
[2020-04-23 01:42] LABS: CREATININE SERUM 3.27 MG/DL (0.60-1.30)
[2020-04-23 01:44] LABS: MAGNESIUM 2.4 MG/DL (1.6-2.4)
[2020-04-23 01:45] LABS: POTASSIUM 6.5 MMOL/L (3.6-5.0)
[2020-04-23 02:02] LABS: ANISOCYTOSIS MODERATE; ATYPICAL LYMPHOCYTES 1 %; HYPOCHROMASIA SLIGHT; LYMPHOCYTES % (MANUAL) 4 %; MICROCYTOSIS SLIGHT; MONOCYTES % (MANUAL) 6 %; NEUTROPHILS % (MANUAL) 89 %
[2020-04-23] MEDS: RT-ALBUTEROL INHALER HFA (VENTOLIN HFA) 18 GM IH SCH ×5 (02:08→19:01)
--- NOTE | 2020-04-23 02:10 | NUR ---
THIS RN WENT TO ROOM TO CHECK ON PATIENT HIS LEADS APPEARED TO BE OFF. PATIENT WAS ON THE GROUND ON HIS HANDS AND KNEES. HE HAD REMOVED HIS MONITOR WELL BIPAP. PATIENT PLACED BACK IN BED, NO INJURIES NOTED. PATIENT STATES KNEES HURT. HE STATED HE WOKE UP AND HAD TO HAVE A BOWEL MOVEMENT AND JUST DECIDED TO GET UP TO GO. FORGOT ABOUT THE CALL LIGHT AND THAT HE WAS HOOKED UP TO MONITORS. PATIENT STATES FEELS BETTER AFTER BIPAP BEING PLACED BACK ON, AND DIDN'T REALIZE HOW WEAK HE WAS. ALL FOUR SIDERAILS UP, CALL LIGHT PLACED NEXT TO PATIENT. WILL CONTINUE TO MONITOR.
[2020-04-23] MEDS ORDERED: DEXTROSE 50% 50 ML (IMS) SYR IV ONE (02:30)
[2020-04-23] MEDS ORDERED: inSUlin (REGULAR) HUMAN 1 UNIT/0.01 ML (CHARGE PER UNIT) IV ONE (02:30)
[2020-04-23] MEDS ORDERED: SOD POLYSTERENE 15 GM/60 ML (KAYEXALATE) UNIT DOSE PO ONE (02:30)
[2020-04-23 03:03] LABS: ABG BASE EXCESS -10.7 MMOL/L (-2.5-2.5); ABG OXYGEN SATURATION 97 % (94-100); ABG PCO2 37 MMHG (35-45); ABG PO2 95 MMHG (79-93); ABG TCO2 16.6 MMOL/L (21.0-31.0)
[2020-04-23 03:06] LABS: ABG PH 7.24 (7.37-7.43); ALLENS TEST POSITIVE; INSPIRED O2 35; PATIENT TEMP 35.1; VENTILATOR YES
[2020-04-23] MEDS ORDERED: SODIUM BICARB 8.4% 50 MEQ/50 ML VIAL IV ONE (05:15)
--- NOTE | 2020-04-23 05:16 | Pulmonary Progress Note ---
Subjective Time Seen by a Provider: 05:13 Subjective/Events-last exam Pt has worsening renal failure Sepsis Event Evaluation Height, Weight, BMI Height: 5'11.00" Weight: 200lbs. 4.0oz. 90.844186sg; 28.54 BMI Method:Stated Focused Exam Lactate Level 04/22/20 17:13: Lactic Acid Level 1.19 Exam Exam Vital Signs Date Time Temp Pulse Resp B/P (MAP) Pulse Ox O2 Delivery O2 Flow Rate FiO2 04/23/20 04:12 35.8 04/23/20 04:12 99 NIV Bilevel 35 04/23/20 02:08 64 21 35.00 04/23/20 02:00 70 17 144/107 (119) NIV Bilevel 35.00 04/23/20 01:00 58 04/23/20 01:00 58 140/77 (98) 97 NIV Bilevel 35.00 04/23/20 00:06 99 NIV Bilevel 35 04/23/20 00:04 35.4 62 18 148/95 (112) 99 NIV Bilevel 35.00 04/23/20 00:00 63 17 148/95 (112) 99 NIV Bilevel 35.00 04/22/20 23:00 60 129/67 (87) 98 NIV Bilevel 35.00 04/22/20 22:00 64 125/67 (86) 99 NIV Bilevel 35.00 04/22/20 21:30 69 143/85 (104) 98 NIV Bilevel 35.00 04/22/20 20:17 NIV Bilevel 35 04/22/20 20:11 36.5 77 19 184/111 (135) 95 NIV Bilevel 35.00 04/22/20 20:00 72 25 183/101 (128) 97 NIV Bilevel 35.00 04/22/20 19:37 74 04/22/20 19:00 71 19 165/91 (115) NIV Bilevel 35.00 04/22/20 18:45 65 24 35.00 04/22/20 18:00 65 8 149/81 (103) 96 NIV Bilevel 35.00 04/22/20 17:00 67 10 184/107 (132) 96 NIV Bilevel 35.00 04/22/20 16:01 71 04/22/20 16:00 97 NIV Bilevel 35 9/13/20 16:00 70 14 151/91 (111) 97 NIV Bilevel 35.00 04/22/20 15:40 75 12 159/94 (115) 95 NIV Bilevel 35.00 04/22/20 14:58 94 Nasal Cannula 3.50 04/22/20 14:53 71 23 35.00 04/22/20 11:01 35.6 65 26 147/76 (99) 97 Nasal Cannula 3.00 04/22/20 09:00 98 Nasal Cannula 3.00 04/22/20 08:53 96 Nasal Cannula 3.00 04/22/20 08:49 96 Nasal Cannula 3.00 04/22/20 08:34 36.0 58 28 118/68 (85) Nasal Cannula 3.00 I & O 04/23/20 07:00 Intake Total 1660 ml Output Total 2200 ml Balance -540 ml Height & Weight Height: 5'11.00" Weight: 200lbs. 4.0oz. 90.615076bz; 28.54 BMI Method:Stated General Appearance: WD/WN, Anxious, Chronically ill, Mild Distress HEENT: PERRL/EOMI, Normal ENT Inspection, Pharynx Normal, Moist Mucous Membranes Neck: Full Range of Motion, Normal Inspection, Non Tender, Supple, Carotid Bruit Respiratory: Decreased Breath Sounds, Rales, Wheezing Cardiovascular: Regular Rate, Rhythm, No Gallop, No JVD, No Murmur, Normal Peripheral Pulses Capillary Refill: Less Than 3 Seconds Gastrointestinal: non tender, hernia (SOFT UMBILICAL HERNIA, NON-TENDER), other (ROTUND, FIRM) Extremity: Pedal Edema Neurologic/Psychiatric: Alert, Oriented x3, No Motor/Sensory Deficits, Normal Mood/Affect Skin: Normal Color, Warm/Dry Lymphatic: No Adenopathy Results Lab Laboratory Tests 04/21/20 05:45 04/22/20 05:22 04/22/20 16:46 04/22/20 17:13 04/23/20 00:25 Assessment/Plan Assessment/Plan Acute respiratory failure -BiPAP PRN -oxygen Severe COVID-19 infection -Decadron -Pt refused Remdesivir when offered, -S/p Convalescent plasma -Encourage proning Hyperkalemia with worsening renal failure and metabolic acidosis -give Kayexalate, insulin, and bicarb -phosLo -Continue bicarb gtt -Dr. Guzman has arrange for transfer to [facility] for nephrology support. He is currently awaiting bed placement. Acute on chronic renal failure -Monitor -Hold lisinopril Pneumonia -emperic Abx currently on Rocephin, azithromycin and vanco -Avila cultures pending -MRSA swab is pending Acute CHF -Cardiology is consulted -Lasix Elevated LFTs -Check Ammonia level NSTEMI HX of COPD Paroxysmal Afib MARTHA HERNANDES DO Apr 23, 2020 05:16
[2020-04-23] MEDS: inSUlin ASPART (NovoLOG) 1 UNIT/0.01 ML (CHARGE PER UNIT) SC SCH ×4 (05:33→20:03)
[2020-04-23] MEDS: ADVAIR HFA 115/21 MCG INHALER 8 GM IH SCH ×2 (06:11→19:01)
[2020-04-23] MEDS: guaiFENesin (MUCINEX) 600 MG TAB PO SCH ×2 (08:11→19:59)
[2020-04-23] MEDS: GABAPENTIN 300 MG (NEURONTIN) CAP PO SCH ×2 (08:11→19:59)
[2020-04-23] MEDS: meTOprolol TARTRATE 50 MG (LOPRESSOR) TAB PO SCH ×2 (08:11→19:59)
[2020-04-23] MEDS: ASPIRIN E.C. 81 MG (ECOTRIN) TAB PO SCH (08:11)
[2020-04-23] MEDS: dexAMETHasone 6 MG TAB (DECADRON) PO SCH (08:11)
[2020-04-23] MEDS: CALCIUM ACETATE 667 MG CAP (PHOSLO) PO SCH ×3 (08:11→17:21)
[2020-04-23] MEDS: CLOPIDOGREL 75 MG (PLAVIX) TABLET PO SCH (08:12)
[2020-04-23] MEDS: LORazepam 0.5 MG (ATIVAN) TABLET PO PRN ×3 (09:00→19:59)
[2020-04-23] MEDS: SODIUM BICARBONATE 8.4% VIAL 100 MEQ in D5W 1000 ML IV SOLUTION 1,000 ML IV SCH ×2 (09:14→16:15)
--- NOTE | 2020-04-23 09:20 | Cardiology Progress Note ---
Subjective Date Seen by Provider: Apr 23, 2020 Time Seen by Provider: 09:17 Subjective/Events-last exam Patient is laying down in bed, complaining of worsening shortness of breath. Transferred to intensive care unit last night due to worsening respiratory failure. Review of Systems General: No Chills, No Night Sweats; Fatigue, Malaise; No Appetite, No Other HEENT: No Head Aches, No Visual Changes, No Eye Pain, No Ear Pain, No Dysphasia, No Sinus Congestion, No Post Nasal Drip, No Sore Throat, No Other Pulmonary: Dyspnea; No Cough, No Pleuritic Chest Pain, No Other Cardiovascular: Edema; No: Chest Pain, Palpitations, Orthopnea, Paroxysmal Noc. Dyspnea, Lt Headedness, Other Focused Exam Lactate Level 04/22/20 17:13: Lactic Acid Level 1.19 Objective-Cardiology Exam Last Set of Vital Signs Vital Signs 04/23/20 04/23/20 04:12 08:00 Temp 35.8 Pulse 66 Resp 37 B/P (MAP) 159/98 (118) Pulse Ox 96 O2 Delivery NIV Bilevel O2 Flow Rate 30.00 FiO2 35 Capillary Refill : Less Than 3 Seconds I&O Intake and Output 04/23/20 00:00 Intake Total 2235 ml Output Total 2200 ml Balance 35 ml Intake Oral 1235 ml IV Total 1000 ml Output Urine Total 2200 ml General: Alert, Oriented X3, Cooperative HEENT: Atraumatic, PERRLA Neck: Supple, No JVD, No Thyromegaly Lungs: Normal Air Movement, Other (bilateral wheezing, rhonchi) Heart: Regular Rate, Normal S1, Normal S2 Abdomen: Normal Bowel Sounds Extremities: No Clubbing, Other (edema) Skin: No Rashes, No Breakdown Neuro: Normal Speech, Strength at 5/5 X4 Ext, Sensation Intact Psych/Mental Status: Mental Status NL Results Lab Laboratory Tests 04/22/20 16:46 04/22/20 17:13 04/23/20 00:25 A/P-Cardiology Admission Diagnosis Non-ST elevation myocardial infarction Coronary artery disease Acute respiratory failure Acute renal failure Assessment/Plan Non-ST elevation myocardial infarction, coronary artery disease, had a cardiac catheterization was April 16, [address] Florentino underwent stenting to the OM1 with drug-eluting stent. Known to have chronic total occlusion of the right coronary artery treated conservatively, troponin was up to 30 last week, still elevated at this time. Continue with aspirin and Plavix and continue to monitor Acute on chronic renal failure, receiving IV fluid. I will give additional dose of Bumex today. Appear to be responding to aggressive diuresis. Metabolic acidosis, uremia. Worsening secondary to renal failure, discussed with Dr. Guzman management plan, probably will need nephrology evaluation Persistent diarrhea. Questionable infectious, Lipitor is on hold, receiving Imodium, continue with aggressive IV hydration, managed by primary care physician Sepsis with COVID positive, improving slowly, feeling better at this time Acute exacerbation of COPD, improving. Continue to monitor Congestive heart failure, acute on chronic left ventricular systolic dysfunction, ischemic cardiomyopathy, I am holding Lasix and monitoring renal function closely. Monitor fluid balance closely. Paroxysmal atrial fibrillation, receiving aspirin, Plavix, hold Xarelto for now, evaluate EKG Patient is being transferred to a tertiary care center due to renal failure. Clinical Quality Measures DVT/VTE Risk/Contraindication: Risk Factor Score Per Nursin RFS Level Per Nursing on Admit: 4+=Very High BETH RODRÍGUEZ MD Apr 23, 2020 9:20 am
[2020-04-23] MEDS ORDERED: BUMETANIDE 1 MG/4 ML (BUMEX) VIAL IV NR (09:30)
--- NOTE | 2020-04-23 10:52 | Discharge Summary ---
Diagnosis/Chief Complaint Date of Admission Apr 16, 2020 at 05:30 Date of Discharge Discharge Date: Apr 23, 2020 Discharge Diagnosis Assessment: Respiratory failure on bipap COVID 19 + Hypoxia NSTEMI s/p cardiac cath today with stent placement in RCA Non-compliance with OAC and Plavix CHF Plan: ICU Stent per cath IV abx Plasma Remdesivir 04/17/20: Transfer to cardiac step down unit Home meds restarted COVID treatment 04/18/20: Move to [facility] Home meds Nebs O2 04/19/20: Treat elevated potassium Appreciate Dr. Aguiar consult Gentle IV fluids Monitor creatinine Monitor anemia Awaiting plasma for COVID 04/20/20: Supportive care Monitor creatinine Continue treating elevated potassium Maintain oxygen 04/21/20: Increase NS IVF to help renal function Plasma and Remdesivir Monitor creatinine Guarded prognosis 04/22/20: [facility] Discharge Summary Discharge Physical Examination Allergies: Coded Allergies: No Known Drug Allergies (Unverified , 02/07/13) Vitals & I&Os Vital Signs Date Time Temp Pulse Resp B/P (MAP) Pulse Ox O2 Delivery O2 Flow Rate FiO2 04/23/20 20:07 79 28 184/97 (126) 96 NIV Bilevel 30.00 04/23/20 20:00 30 04/23/20 20:00 36.2 General Appearance: Alert, Oriented X3 Respiratory: Normal Air Movement Cardiovascular: Regular Rate Neuro: Normal Speech Hospital Course Was the Problem List Reviewed?: Yes Patient had a very complicated course after admitted with hypoxia and fever and COVID + on swab with AECOPD and elevated troponin with NSTEMI. Patient placed in ICU on biPAP given convalescent plasma and Decadron and Remdesivir along with ICU consultation. 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 Patient ultimately sent to floor and did well until Day # 9 of COVID when he had increasing BUN and creatinine and oliguria along with ischemic cardiomyopathy EF 35% unresolved after IVF given for volume depletion from diarrhea due to Kayexelate given for hyperkalemia and having no Nephrology consultation services he was referred to [facility] and they graciously accepted him in transfer. Hospital Course: See previous DC summary note that pt had a very complicated hospital course, required holding [facility] here. He still remains wheezy, creatinine still continues to be high along with potassium at 6.1. Pt was transferred in a stable manor to [place]. Labs (last 24 hrs) Laboratory Tests 04/16/20 03:45: White Blood Count 14.9H, Red Blood Count 3.34L, Hemoglobin 9.2L, Hematocrit 31L, Mean Corpuscular Volume 93, Mean Corpuscular Hemoglobin 28, Mean Corpuscular Hemoglobin Concent 30L, Red Cell Distribution Width 16.6H, Platelet Count 340, Mean Platelet Volume 9.5, Neutrophils (%) (Auto) 91H, Lymphocytes (%) (Auto) 4L, Monocytes (%) (Auto) 5, Eosinophils (%) (Auto) 0, Basophils (%) (Auto) 0, Neutrophils # (Auto) 13.5H, Lymphocytes # (Auto) 0.6L, Monocytes # (Auto) 0.7, Eosinophils # (Auto) 0.0, Basophils # (Auto) 0.0, Neutrophils % (Manual) 90, Lymphocytes % (Manual) 5, Monocytes % (Manual) 3, Eosinophils % (Manual) 0, Basophils % (Manual) 0, Band Neutrophils 2, Polychromasia SLIGHT, Hypochromasia SLIGHT, Anisocytosis SLIGHT, Macrocytosis SLIGHT, Erythrocyte Sedimentation Rate 59H, Prothrombin Time 14.3, INR Comment 1.1, Activated Partial Thromboplast Time 29, D-Dimer 2.96H, Sodium Level 139, Potassium Level 4.6, Chloride Level 104, Carbon Dioxide Level 22, Anion Gap 13, Blood Urea Nitrogen 33H, Creatinine 1.81H , Estimat Glomerular Filtration Rate 38, BUN/Creatinine Ratio 18, Glucose Level 400H, Calcium Level 8.7, Corrected Calcium 8.8, Magnesium Level 1.9, Total Bilirubin 0.5, Aspartate Amino Transf (AST/SGOT) 19, Alanine Aminotransferase (ALT/SGPT) 9, Alkaline Phosphatase 80, Lactate Dehydrogenase 231H, Total Creatine Kinase 225H, Creatine Kinase MB 12.1*H, Myoglobin 1424.4H, Troponin I 0.959*H, C-Reactive Protein High Sensitivity 4.77H, B-Type Natriuretic Peptide 1101.4H, Total Protein 7.7, Albumin 3.9, Procalcitonin 0.12H 04/16/20 03:50: Coronavirus 2019 (GEOVANNI) PositiveH 04/16/20 04:03: Blood Gas Puncture Site R RAD, Blood Gas Patient Temperature 36.1, Arterial Blood pH 7.34*L, Arterial Blood Partial Pressure CO2 44, Arterial Blood Partial Pressure O2 67L, Arterial Blood HCO3 24, Arterial Blood Total CO2 25.2, Arterial Blood Oxygen Saturation 94, Arterial Blood Base Excess -1.3, Al Test YES-POS, Blood Gas Ventilator Setting NO, Blood Gas Inspired Oxygen 15L 04/16/20 04:05: Lactic Acid Level 1.45 04/16/20 05:30: Lab Scanned Report Referred Lab Report 04/16/20 06:45: Blood Gas Puncture Site R RAD, Blood Gas Patient Temperature 36.1, Arterial Blood pH 7.34*L, Arterial Blood Partial Pressure CO2 45, Arterial Blood Partial Pressure O2 59L, Arterial Blood HCO3 24, Arterial Blood Total CO2 25.6, Arterial Blood Oxygen Saturation 89L, Arterial Blood Base Excess -1.0, Al Test YES- POS, Blood Gas Ventilator Setting NO, Blood Gas Inspired Oxygen 35% 04/16/20 07:06: Troponin I 33.961*H 04/16/20 07:55: Urine Color YELLOW, Urine Clarity CLEAR, Urine pH 5.5, Urine Specific [place] >=1.030, Urine Protein 2+H, Urine Glucose (UA) 2+H, Urine Ketones NEGATIVE, Urine Nitrite NEGATIVE, Urine Bilirubin NEGATIVE, Urine Urobilinogen 0.2, Urine Leukocyte Esterase NEGATIVE, Urine RBC (Auto) 2+H, Urine RBC 0-2, Urine WBC NONE, Urine Squamous Epithelial Cells RARE, Urine Renal Epithelial Cells RARE, Urine Crystals NONE, Urine Bacteria NEGATIVE, Urine Casts PRESENT, Urine Hyaline Casts 5-10H, Urine Mucus NEGATIVE, Urine Culture Indicated NO, Urine Opiates Screen NEGATIVE, Urine Oxycodone Screen NEGATIVE, Urine Methadone Screen NEGATIVE, Urine Propoxyphene Screen NEGATIVE, Urine Barbiturates Screen NEGATIVE, Ur Tricyclic Antidepressants Screen NEGATIVE, Urine Phencyclidine Screen NEGATIVE, Urine Amphetamines Screen NEGATIVE, Urine Methamphetamines Screen NEGATIVE, Urine Benzodiazepines Screen NEGATIVE, Urine Cocaine Screen NEGATIVE, Urine Cannabinoids Screen POSITIVEH 04/16/20 11:53: Glucometer 376H 04/16/20 16:28: Glucometer 348H 04/16/20 16:39: Blood Gas Puncture Site LEFT RADIAL, Blood Gas Patient Temperature 36, Arterial Blood pH 7.25*L, Arterial Blood Partial Pressure CO2 52H, Arterial Blood Partial Pressure O2 70L, Arterial Blood HCO3 22L, Arterial Blood Total CO2 24.0, Arteria l Blood Oxygen Saturation 92L, Arterial Blood Base Excess -4.1L, Al Test POSITIVE, Blood Gas Ventilator Setting NO, Blood Gas Inspired Oxygen 30% 04/16/20 18:15: Blood Gas Puncture Site LEFT RADIAL, Blood Gas Patient Temperature 36.1, Arterial Blood pH 7.36L, Arterial Blood Partial Pressure CO2 39, Arterial Blood Partial Pressure O2 69L, Arterial Blood HCO3 22L, Arterial Blood Total CO2 23.1, Arterial Blood Oxygen Saturation 94, Arterial Blood Base Excess -2.9L, Al Test POSITIVE, Blood Gas Ventilator Setting NO, Blood Gas Inspired Oxygen 30% BIPAP 04/16/20 20:42: Glucometer 348H 04/17/20 02:37: White Blood Count 17.2H, Red Blood Count 3.21L, Hemoglobin 9.0L, Hematocrit 30L, Mean Corpuscular Volume 92, Mean Corpuscular Hemoglobin 28, Mean Corpuscular Hemoglobin Concent 30L, Red Cell Distribution Width 16.9H, Platelet Count 312, Mean Platelet Volume 9.5, Neutrophils (%) (Auto) 86H, Lymphocytes (%) (Auto) 6L, Monocytes (%) (Auto) 8, Eosinophils (%) (Auto) 0, Basophils (%) (Auto) 0, Neutrophils # (Auto) 14.8H, Lymphocytes # (Auto) 1.0, Monocytes # (Auto) 1.4H, Eosinophils # (Auto) 0.0, Basophils # (Auto) 0.0, Sodium Level 139, Potassium Level 4.7, Chloride Level 107, Carbon Dioxide Level 19L, Anion Gap 13, Blood Urea Nitrogen 42H, Creatinine 1.64H, Estimat Glomerular Filtration Rate 42, BUN/Creatinine Ratio 26, Glucose Level 168H, Calcium Level 8.7, Phosphorus Level 3.2, Magnesium Level 2.1 04/17/20 03:15: Blood Gas Puncture Site LEFT RADIAL, Blood Gas Patient Temperature 35.9, Arterial Blood pH 7.38, Arterial Blood Partial Pressure CO2 39, Arterial Blood Partial Pressure O2 72L, Arterial Blood HCO3 23, Arterial Blood Total CO2 23.8, Arterial Blood Oxygen Saturation 96, Arterial Blood Base Excess -2.0, Al Test YES-POS, Blood Gas Ventilator Setting NO, Blood Gas Inspired Oxygen 30% 04/17/20 12:14: Glucometer 240H 04/17/20 16:53: Glucometer 301H 04/17/20 20:13: Glucometer 213H 04/18/20 04:30: White Blood Count 16.1H, Red Blood Count 3.18L, Hemoglobin 8.9L, Hematocrit 29L, Mean Corpuscular Volume 92, Mean Corpuscular Hemoglobin 28, Mean Corpuscular Hemoglobin Concent 31L, Red Cell Distribution Width 17.0H, Platelet Count 295, Mean Platelet Volume 9.9, Neutrophils (%) (Auto) 79H, Lymphocytes (%) (Auto) 13, Monocytes (%) (Auto) 7, Eosinophils (%) (Auto) 0, Basophils (%) (Auto) 0, Neutr ophils # (Auto) 12.8H, Lymphocytes # (Auto) 2.2, Monocytes # (Auto) 1.2H, Eosinophils # (Auto) 0.0, Basophils # (Auto) 0.0, Sodium Level 138, Potassium Level 5.4H, Chloride Level 103, Carbon Dioxide Level 21, Anion Gap 14, Blood Urea Nitrogen 56H, Creatinine 2.34H, Estimat Glomerular Filtration Rate 28, BUN/Creatinine Ratio 24, Glucose Level 91, Calcium Level 8.4L, Phosphorus Level 7.1H, Magnesium Level 2.3 04/18/20 11:43: Glucometer 142H 04/18/20 16:09: Glucometer 207H 04/18/20 20:00: Glucometer 259H 04/19/20 04:50: White Blood Count 11.5H, Red Blood Count 3.14L, Hemoglobin 8.6L, Hematocrit 29L, Mean Corpuscular Volume 91, Mean Corpuscular Hemoglobin 27, Mean Corpuscular Hemoglobin Concent 30L, Red Cell Distribution Width 17.2H, Platelet Count 288, Mean Platelet Volume 10.1, Neutrophils (%) (Auto) 88H, Lymphocytes (%) (Auto) 7L , Monocytes (%) (Auto) 5, Eosinophils (%) (Auto) 0, Basophils (%) (Auto) 0, Neutrophils # (Auto) 10.1H, Lymphocytes # (Auto) 0.8L, Monocytes # (Auto) 0.6, Eosinophils # (Auto) 0.0, Basophils # (Auto) 0.0 04/19/20 05:05: Sodium Level 137, Potassium Level 5.6H, Chloride Level 99, Carbon Dioxide Level 23, Anion Gap 15H, Blood Urea Nitrogen 84H, Creatinine 3.49#H, Estimat Glomerul ar Filtration Rate 18, BUN/Creatinine Ratio 24, Glucose Level 228H, Calcium Level 8.0L, Phosphorus Level 9.2H, Magnesium Level 2.6H 04/19/20 05:39: Glucometer 263H 04/19/20 10:36: Glucometer 246H 04/19/20 15:54: Glucometer 328H 04/19/20 20:22: Glucometer 355H 04/20/20 05:26: Glucometer 253H 04/20/20 06:04: White Blood Count 14.7H, Red Blood Count 3.03L, Hemoglobin 8.3L, Hematocrit 28L, Mean Corpuscular Volume 91, Mean Corpuscular Hemoglobin 27, Mean Corpuscular Hemoglobin Concent 30L, Red Cell Distribution Width 17.1H, Platelet Count 300, Mean Platelet Volume 10.3, Neutrophils (%) (Auto) 89H, Lymphocytes (%) (Auto) 6L , Monocytes (%) (Auto) 5, Eosinophils (%) (Auto) 0, Basophils (%) (Auto) 0, Neutrophils # (Auto) 13.1H, Lymphocytes # (Auto) 0.9L, Monocytes # (Auto) 0.7, Eosinophils # (Auto) 0.0, Basophils # (Auto) 0.0, Sodium Level 135, Potassium Level 5.1H, Chloride Level 103, Carbon Dioxide Level 17L, Anion Gap 15H, Blood U zainab Nitrogen 92H, Creatinine 3.64H, Estimat Glomerular Filtration Rate 17, BUN/Creatinine Ratio 25, Glucose Level 215H, Calcium Level 7.4L, Phosphorus Level 9.2H, Magnesium Level 2.5H 04/20/20 11:33: Glucometer 246H 04/20/20 16:19: Glucometer 262H 04/20/20 20:22: Glucometer 309H 04/21/20 05:42: Glucometer 226H 04/21/20 05:45: White Blood Count 16.2H, Red Blood Count 3.01L, Hemoglobin 8.4L, Hematocrit 28L, Mean Corpuscular Volume 91, Mean Corpuscular Hemoglobin 28, Mean Corpuscular Hemoglobin Concent 31L, Red Cell Distribution Width 17.5H, Platelet Count 300, Mean Platelet Volume 10.4, Neutrophils (%) (Auto) 90H, Lymphocytes (%) (Auto) 6L , Monocytes (%) (Auto) 4, Eosinophils (%) (Auto) 0, Basophils (%) (Auto) 0, Neutrophils # (Auto) 14.6H, Lymphocytes # (Auto) 0.9L, Monocytes # (Auto) 0.7, Eosinophils # (Auto) 0.0, Basophils # (Auto) 0.0, Sodium Level 134L, Potassium Level 5.2H, Chloride Level 104, Carbon Dioxide Level 15L, Anion Gap 15H, Blood Urea Nitrogen 104*H, Creatinine 3.53H, Estimat Glomerular Filtration Rate 17, BUN/Creatinine Ratio 29, Glucose Level 197H, Calcium Level 7.7L, Phosphorus Level 8.8H, Magnesium Level 2.5H 04/21/20 12:02: Glucometer 245H 04/21/20 16:01: Glucometer 285H 04/21/20 20:16: Glucometer 343H 04/22/20 05:21: Glucometer 172H 04/22/20 05:22: White Blood Count 19.1H, Red Blood Count 3.26L, Hemoglobin 9.1L, Hematocrit 30L, Mean Corpuscular Volume 92, Mean Corpuscular Hemoglobin 28, Mean Corpuscular Hemoglobin Concent 30L, Red Cell Distribution Width 17.8H, Platelet Count 327, Mean Platelet Volume 10.0, Neutrophils (%) (Auto) 89H, Lymphocytes (%) (Auto) 5L , Monocytes (%) (Auto) 6, Eosinophils (%) (Auto) 0, Basophils (%) (Auto) 0, Neutrophils # (Auto) 16.9H, Lymphocytes # (Auto) 1.0, Monocytes # (Auto) 1.1H, Eosinophils # (Auto) 0.0, Basophils # (Auto) 0.0, Sodium Level 136, Potassium Level 5.6H, Chloride Level 106, Carbon Dioxide Level 16L, Anion Gap 14, Blood Urea Nitrogen 107*H, Creatinine 3.47H, Estimat Glomerular Filtration Rate 18, BUN/Creatinine Ratio 31, Glucose Level 165H, Calcium Level 8.0L, Corrected Calcium 8.3L, Phosphorus Level 8.2H, Magnesium Level 2.5H, Total Bilirubin 0.3, Aspartate Amino Transf (AST/SGOT) 99H, Alanine Aminotransferase (ALT/SGPT) 397H, Alkaline Phosphatase 176H, Total Protein 6.8, Albumin 3.6 04/22/20 10:59: Glucometer 245H 04/22/20 16:19: Blood Gas Puncture Site LR, Blood Gas Patient Temperature 35.6, Arterial Blood pH 7.27*L, Arterial Blood Partial Pressure CO2 37, Arterial Blood Partial Pressure O2 79, Arterial Blood HCO3 17*L, Arterial Blood Total CO2 18.1L, Arterial Blood Oxygen Saturation 95, Arterial Blood Base Excess -8.9L, Al Test YES-POS, Blood Gas Ventilator Setting NO, Blood Gas Inspired Oxygen 35% 04/22/20 16:27: Glucometer 307H 04/22/20 16:46: White Blood Count 14.5H, Red Blood Count 3.08L, Hemoglobin 8.6L, Hematocrit 28L, Mean Corpuscular Volume 91, Mean Corpuscular Hemoglobin 28, Mean Corpuscular Hemoglobin Concent 31L, Red Cell Distribution Width 18.5H, Platelet Count 320, Mean Platelet Volume 10.2 04/22/20 17:13: D-Dimer 9.51H, Sodium Level 133L, Potassium Level 5.7H, Chloride Level 104, Carbon Dioxide Level 14L, Anion Gap 15H, Blood Urea Nitrogen 107*H, Creatinine 3.35H, Estimat Glomerular Filtration Rate 19, BUN/Creatinine Ratio 32, Glucose Level 283H, Lactic Acid Level 1.19, Calcium Level 8.0L, Corrected Calcium 8.5, Magnesium Level 2.4, Total Bilirubin 0.4, Aspartate Amino Transf (AST/SGOT) 98H, Alanine Aminotransferase (ALT/SGPT) 352H, Alkaline Phosphatase 161H, Troponin I 8.130*H, Total Protein 6.8, Albumin 3.4 04/22/20 17:45: B-Type Natriuretic Peptide 4046.4H 04/22/20 20:05: Glucometer 367H 04/23/20 00:25: Sodium Level 134L, Potassium Level 6.5*H, Chloride Level 105, Carbon Dioxide Level 14L, Anion Gap 15H, Blood Urea Nitrogen 107*H, Creatinine 3.27H, Estimat Glomerular Filtration Rate 19, BUN/Creatinine Ratio 33, Glucose Level 256H, Calcium Level 8.0L, Corrected Calcium 8.6, Magnesium Level 2.4, Total Bilirubin 0.3, Aspartate Amino Transf (AST/SGOT) 98H, Alanine Aminotransferase (ALT/SGPT) 310H, Alkaline Phosphatase 140H, Total Protein 6.7, Albumin 3.2, White Blood Count 13.1H, Red Blood Count 2.96L, Hemoglobin 8.3L, Hematocrit 27L, Mean Corpuscular Volume 91, Mean Corpuscular Hemoglobin 28, Mean Corpuscular Hemoglobin Concent 31L, Red Cell Distribution Width 18.6H, Platelet Count 250, Mean Platelet Volume 9.9, Neutrophils (%) (Auto) 88H, Lymphocytes (%) (Auto) 5L, Monocytes (%) (Auto) 7, Eosinophils (%) (Auto) 0, Basophils (%) (Auto) 0, Neutrophils # (Auto) 11.6H, Lymphocytes # (Auto) 0.6L, Monocytes # (Auto) 0.9, Eosinophils # (Auto) 0.0, Basophils # (Auto) 0.0, Neutrophils % (Manual) 89, Lymphocytes % (Manual) 4, Monocytes % (Manual) 6, Atypical Lymphocytes 1, Hypochromasia SLIGHT, Anisocytosis MODERATE, Microcytosis SLIGHT, Phosphorus Level 8.1H 04/23/20 02:18: Blood Gas Puncture Site LEFT RADIAL, Blood Gas Patient Temperature 35.1, Arterial Blood pH 7.24*L, Arterial Blood Partial Pressure CO2 37, Arterial Blood Partial Pressure O2 95H, Arterial Blood HCO3 15*L, Arterial Blood Total CO2 16.6L, Arterial Blood Oxygen Saturation 97, Arterial Blood Base Excess -10.7L, Al Test POSITIVE, Blood Gas Ventilator Setting YES, Blood Gas Inspired Oxygen 35 04/23/20 05:28: Glucometer 157H 04/23/20 08:50: Ammonia 38H 04/23/20 10:35: Sodium Level 137, Potassium Level 4.9, Chloride Level 103, Carbon Dioxide Level 21, Anion Gap 13, Blood Urea Nitrogen 107*H, Creatinine 3.05H, Estimat Glomerular Filtration Rate 21, BUN/Creatinine Ratio 35, Glucose Level 283H, Calcium Level 8.1L 04/23/20 10:36: Glucometer 315H 04/23/20 15:57: Glucometer 334H 04/23/20 16:30: Sodium Level 137, Potassium Level 4.8, Chloride Level 101, Carbon Dioxide Level 23, Anion Gap 13, Blood Urea Nitrogen 107*H, Creatinine 2.96H, Estimat Glomerular Filtration Rate 21, BUN/Creatinine Ratio 36, Glucose Level 311H, Calcium Level 8.3L 04/23/20 19:57: Glucometer 403*H Microbiology 04/16/20 Gram Stain - Final, Complete 04/16/20 Sputum Culture - Final, Complete Usual upper respiratory ortiz YEAST 04/16/20 Blood Culture - Final, Complete No growth Pending Labs Microbiology Date/Time Source Procedure Growth Status 04/16/20 11:55 Sputum Expectorated Gram Stain - Final Complete 04/16/20 11:55 Sputum Culture - Final Usual upper respiratory ortiz YEAST Complete 04/16/20 06:30 Nasal MRSA Screen - Final MRSA not isolated Complete 04/16/20 04:05 Peripheral Rt Ac Blood Culture - Final No growth Complete 04/16/20 03:45 Peripheral Lt Ac Blood Culture - Preliminary Staph, Coag Neg ([employer]) Resulted Laboratory Tests 04/16/20 03:45: White Blood Count 14.9, Red Blood Count 3.34, Hemoglobin 9.2, Hematocrit 31, Mean Corpuscular Volume 93, Mean Corpuscular Hemoglobin 28, Mean Corpuscular Hemoglobin Concent 30, Red Cell Distribution Width 16.6, Platelet Count 340, Mean Platelet Volume 9.5, Neutrophils (%) (Auto) 91, Lymphocytes (%) (Auto) 4, Monocytes (%) (Auto) 5, Eosinophils (%) (Auto) 0, Basophils (%) (Auto) 0, Neutrophils # (Auto) 13.5, Lymphocytes # (Auto) 0.6, Monocytes # (Auto) 0.7, Eosinophils # (Auto) 0.0, Basophils # (Auto) 0.0, Neutrophils % (Manual) 90, Lymphocytes % (Manual) 5, Monocytes % (Manual) 3, Eosinophils % (Manual) 0, Basophils % (Manual) 0, Band Neutrophils 2, Polychromasia SLIGHT, Hypochromasia SLIGHT, Anisocytosis SLIGHT, Macrocytosis SLIGHT, Erythrocyte Sedimentation Rate 59, Prothrombin Time 14.3, INR Comment 1.1, Activated Partial Thromboplast Time 29, D-Dimer 2.96, Sodium Level 139, Potassium Level 4.6, Chloride Level 104, Carbon Dioxide Level 22, Anion Gap 13, Blood Urea Nitrogen 33, Creatinine 1.81, Estimat Glomerular Filtration Rate 38, BUN/Creatinine Ratio 18, Glucose Level 400, Calcium Level 8.7, Corrected Calcium 8.8, Magnesium Level 1.9, Total Bilirubin 0.5, Aspartate Amino Transf (AST/SGOT) 19, Alanine Aminotransferase (ALT/SGPT) 9, Alkaline Phosphatase 80, Lactate Dehydrogenase 231, Total Creatine Kinase 225, Creatine Kinase MB 12.1, Myoglobin 1424.4, Troponin I 0.959, C- Reactive Protein High Sensitivity 4.77, B-Type Natriuretic Peptide 1101.4, Total Protein 7.7, Albumin 3.9, Procalcitonin 0.12 04/16/20 03:50: Coronavirus 2019 (GEOVANNI) Positive 04/16/20 04:03: Blood Gas Puncture Site R RAD, Blood Gas Patient Temperature 36.1, Arterial Blood pH 7.34, Arterial Blood Partial Pressure CO2 44, Arterial Blood Partial Pressure O2 67, Arterial Blood HCO3 24, Arterial Blood Total CO2 25.2, Arterial Blood Oxygen Saturation 94, Arterial Blood Base Excess -1.3, Al Test YES-POS, Blood Gas Ventilator Setting NO, Blood Gas Inspired Oxygen 15L 04/16/20 04:05: Lactic Acid Level 1.45 04/16/20 05:30: Lab Scanned Report Referred Lab Report 04/16/20 06:45: Blood Gas Puncture Site R RAD, Blood Gas Patient Temperature 36.1, Arterial Blood pH 7.34, Arterial Blood Partial Pressure CO2 45, Arterial Blood Partial Pressure O2 59, Arterial Blood HCO3 24, Arterial Blood Total CO2 25.6, Arterial Blood Oxygen Saturation 89, Arterial Blood Base Excess -1.0, Al Test YES-POS, Blood Gas Ventilator Setting NO, Blood Gas Inspired Oxygen 35% 04/16/20 07:06: Troponin I 33.961 04/16/20 07:55: Urine Color YELLOW, Urine Clarity CLEAR, Urine pH 5.5, Urine Specific [place] >=1.030, Urine Protein 2+, Urine Glucose (UA) 2+, Urine Ketones NEGATIVE, Urine Nitrite NEGATIVE, Urine Bilirubin NEGATIVE, Urine Urobilinogen 0.2, Urine Leukoc yte Esterase NEGATIVE, Urine RBC (Auto) 2+, Urine RBC 0-2, Urine WBC NONE, Urine Squamous Epithelial Cells RARE, Urine Renal Epithelial Cells RARE, Urine Crystals NONE, Urine Bacteria NEGATIVE, Urine Casts PRESENT, Urine Hyaline Casts 5-10, Urine Mucus NEGATIVE, Urine Culture Indicated NO, Urine Opiates Screen NEGATIVE, Urine Oxycodone Screen NEGATIVE, Urine Methadone Screen NEGATIVE, Urine Propoxyphene Screen NEGATIVE, Urine Barbiturates Screen NEGATIVE, Ur Tricyclic Antidepressants Screen NEGATIVE, Urine Phencyclidine Screen NEGATIVE, Urine Amphetamines Screen NEGATIVE, Urine Methamphetamines Screen NEGATIVE, Urine Benzodiazepines Screen NEGATIVE, Urine Cocaine Screen NEGATIVE, Urine Cannabinoids Screen POSITIVE 04/16/20 11:53: Glucometer 376 04/16/20 16:28: Glucometer 348 04/16/20 16:39: Blood Gas Puncture Site LEFT RADIAL, Blood Gas Patient Temperature 36, Arterial Blood pH 7.25, Arterial Blood Partial Pressure CO2 52, Arterial Blood Partial Pressure O2 70, Arterial Blood HCO3 22, Arterial Blood Total CO2 24.0, Arterial Blood Oxygen Saturation 92, Arterial Blood Base Excess -4.1, Al Test POSITIVE, Blood Gas Ventilator Setting NO, Blood Gas Inspired Oxygen 30% 04/16/20 18:15: Blood Gas Puncture Site LEFT RADIAL, Blood Gas Patient Temperature 36.1, Arterial Blood pH 7.36, Arterial Blood Partial Pressure CO2 39, Arterial Blood Partial Pressure O2 69, Arterial Blood HCO3 22, Arterial Blood Total CO2 23.1, Arterial Blood Oxygen Saturation 94, Arterial Blood Base Excess -2.9, Al Test POSITIVE, Blood Gas Ventilator Setting NO, Blood Gas Inspired Oxygen 30% BIPAP 04/16/20 20:42: Glucometer 348 04/17/20 02:37: White Blood Count 17.2, Red Blood Count 3.21, Hemoglobin 9.0, Hematocrit 30, Mean Corpuscular Volume 92, Mean Corpuscular Hemoglobin 28, Mean Corpuscular Hemoglobin Concent 30, Red Cell Distribution Width 16.9, Platelet Count 312, Mean Platelet Volume 9.5, Neutrophils (%) (Auto) 86, Lymphocytes (%) (Auto) 6, Monocytes (%) (Auto) 8, Eosinophils (%) (Auto) 0, Basophils (%) (Auto) 0, Neutrophils # (Auto) 14.8, Lymphocytes # (Auto) 1.0, Monocytes # (Auto) 1.4, Eosinophils # (Auto) 0.0, Basophils # (Auto) 0.0, Sodium Level 139, Potassium Level 4.7, Chloride Level 107, Carbon Dioxide Level 19, Anion Gap 13, Blood Urea Nitrogen 42, Creatinine 1.64, Estimat Glomerular Filtration Rate 42, BUN/Creatinine Ratio 26, Glucose Level 168, Calcium Level 8.7, Phosphorus Level 3.2, Magnesium Level 2.1 04/17/20 03:15: Blood Gas Puncture Site LEFT RADIAL, Blood Gas Patient Temperature 35.9, Arterial Blood pH 7.38, Arterial Blood Partial Pressure CO2 39, Arterial Blood Partial Pressure O2 72, Arterial Blood HCO3 23, Arterial Blood Total CO2 23.8, Arterial Blood Oxygen Saturation 96, Arterial Blood Base Excess -2.0, Al Test YES-POS, Blood Gas Ventilator Setting NO, Blood Gas Inspired Oxygen 30% 04/17/20 12:14: Glucometer 240 04/17/20 16:53: Glucometer 301 04/17/20 20:13: Glucometer 213 04/18/20 04:30: White Blood Count 16.1, Red Blood Count 3.18, Hemoglobin 8.9, Hematocrit 29, Mean Corpuscular Volume 92, Mean Corpuscular Hemoglobin 28, Mean Corpuscular Hemoglobin Concent 31, Red Cell Distribution Width 17.0, Platelet Count 295, Mean Platelet Volume 9.9, Neutrophils (%) (Auto) 79, Lymphocytes (%) (Auto) 13, Monocytes (%) (Auto) 7, Eosinophils (%) (Auto) 0, Basophils (%) (Auto) 0, Neutrophils # (Auto) 12.8, Lymphocytes # (Auto) 2.2, Monocytes # (Auto) 1.2, Eosinophils # (Auto) 0.0, Basophils # (Auto) 0.0, Sodium Level 138, Potassium Level 5.4, Chloride Level 103, Carbon Dioxide Level 21, Anion Gap 14, Blood Urea Nitrogen 56, Creatinine 2.34, Estimat Glomerular Filtration Rate 28, BUN/Creatinine Ratio 24, Glucose Level 91, Calcium Level 8.4, Phosphorus Level 7.1, Magnesium Level 2.3 04/18/20 11:43: Glucometer 142 04/18/20 16:09: Glucometer 207 04/18/20 20:00: Glucometer 259 04/19/20 04:50: White Blood Count 11.5, Red Blood Count 3.14, Hemoglobin 8.6, Hematocrit 29, Mean Corpuscular Volume 91, Mean Corpuscular Hemoglobin 27, Mean Corpuscular Hemoglobin Concent 30, Red Cell Distribution Width 17.2, Platelet Count 288, Mean Platelet Volume 10.1, Neutrophils (%) (Auto) 88, Lymphocytes (%) (Auto) 7, Monocytes (%) (Auto) 5, Eosinophils (%) (Auto) 0, Basophils (%) (Auto) 0, Neutrophils # (Auto) 10.1, Lymphocytes # (Auto) 0.8, Monocytes # (Auto) 0.6, Eosinophils # (Auto) 0.0, Basophils # (Auto) 0.0 04/19/20 05:05: Sodium Level 137, Potassium Level 5.6, Chloride Level 99, Carbon Dioxide Level 23, Anion Gap 15, Blood Urea Nitrogen 84, Creatinine 3.49, Estimat Glomerular Filtration Rate 18, BUN/Creatinine Ratio 24, Glucose Level 228, Calcium Level 8.0, Phosphorus Level 9.2, Magnesium Level 2.6 04/19/20 05:39: Glucometer 263 04/19/20 10:36: Glucometer 246 04/19/20 15:54: Glucometer 328 04/19/20 20:22: Glucometer 355 04/20/20 05:26: Glucometer 253 04/20/20 06:04: White Blood Count 14.7, Red Blood Count 3.03, Hemoglobin 8.3, Hematocrit 28, Mean Corpuscular Volume 91, Mean Corpuscular Hemoglobin 27, Mean Corpuscular Hemoglobin Concent 30, Red Cell Distribution Width 17.1, Platelet Count 300, Mean Platelet Volume 10.3, Neutrophils (%) (Auto) 89, Lymphocytes (%) (Auto) 6, Monocytes (%) (Auto) 5, Eosinophils (%) (Auto) 0, Basophils (%) (Auto) 0, Neutrophils # (Auto) 13.1, Lymphocytes # (Auto) 0.9, Monocytes # (Auto) 0.7, Eosinophils # (Auto) 0.0, Basophils # (Auto) 0.0, Sodium Level 135, Potassium Level 5.1, Chloride Level 103, Carbon Dioxide Level 17, Anion Gap 15, Blood Urea Nitrogen 92, Creatinine 3.64, Estimat Glomerular Filtration Rate 17, BUN/Creatinine Ratio 25, Glucose Level 215, Calcium Level 7.4, Phosphorus Level 9.2, Magnesium Level 2.5 04/20/20 11:33: Glucometer 246 04/20/20 16:19: Glucometer 262 04/20/20 20:22: Glucometer 309 04/21/20 05:42: Glucometer 226 04/21/20 05:45: White Blood Count 16.2, Red Blood Count 3.01, Hemoglobin 8.4, Hematocrit 28, Mean Corpuscular Volume 91, Mean Corpuscular Hemoglobin 28, Mean Corpuscular Hemoglobin Concent 31, Red Cell Distribution Width 17.5, Platelet Count 300, Me an Platelet Volume 10.4, Neutrophils (%) (Auto) 90, Lymphocytes (%) (Auto) 6, Monocytes (%) (Auto) 4, Eosinophils (%) (Auto) 0, Basophils (%) (Auto) 0, Neutrophils # (Auto) 14.6, Lymphocytes # (Auto) 0.9, Monocytes # (Auto) 0.7, Eosinophils # (Auto) 0.0, Basophils # (Auto) 0.0, Sodium Level 134, Potassium Level 5.2, Chloride Level 104, Carbon Dioxide Level 15, Anion Gap 15, Blood Urea Nitrogen 104, Creatinine 3.53, Estimat Glomerular Filtration Rate 17, BUN/Creatinine Ratio 29, Glucose Level 197, Calcium Level 7.7, Phosphorus Level 8.8, Magnesium Level 2.5 04/21/20 12:02: Glucometer 245 04/21/20 16:01: Glucometer 285 04/21/20 20:16: Glucometer 343 04/22/20 05:21: Glucometer 172 04/22/20 05:22: White Blood Count 19.1, Red Blood Count 3.26, Hemoglobin 9.1, Hematocrit 30, Mean Corpuscular Volume 92, Mean Corpuscular Hemoglobin 28, Mean Corpuscular Hemoglobin Concent 30, Red Cell Distribution Width 17.8, Platelet Count 327, Mean Platelet Volume 10.0, Neutrophils (%) (Auto) 89, Lymphocytes (%) (Auto) 5, Monocytes (%) (Auto) 6, Eosinophils (%) (Auto) 0, Basophils (%) (Auto) 0, Neutrophils # (Auto) 16.9, Lymphocytes # (Auto) 1.0, Monocytes # (Auto) 1.1, Eosinophils # (Auto) 0.0, Basophils # (Auto) 0.0, Sodium Level 136, Potassium Level 5.6, Chloride Level 106, Carbon Dioxide Level 16, Anion Gap 14, Blood Urea Nitrogen 107, Creatinine 3.47, Estimat Glomerular Filtration Rate 18, BUN/Creatinine Ratio 31, Glucose Level 165, Calcium Level 8.0, Corrected Calcium 8.3, Phosphorus Level 8.2, Magnesium Level 2.5, Total Bilirubin 0.3, Aspartate Amino Transf (AST/SGOT) 99, Alanine Aminotransferase (ALT/SGPT) 397, Alkaline Phosphatase 176, Total Protein 6.8, Albumin 3.6 04/22/20 10:59: Glucometer 245 04/22/20 16:19: Blood Gas Puncture Site LR, Blood Gas Patient Temperature 35.6, Arterial Blood pH 7.27, Arterial Blood Partial Pressure CO2 37, Arterial Blood Partial Pressure O2 79, Arterial Blood HCO3 17, Arterial Blood Total CO2 18.1, Arterial Blood Oxygen Saturation 95, Arterial Blood Base Excess -8.9, Al Test YES-POS, Blood Gas Ventilator Setting NO, Blood Gas Inspired Oxygen 35% 04/22/20 16:27: Glucometer 307 04/22/20 16:46: White Blood Count 14.5, Red Blood Count 3.08, Hemoglobin 8.6, Hematocrit 28, Mean Corpuscular Volume 91, Mean Corpuscular Hemoglobin 28, Mean Corpuscular Hemoglobin Concent 31, Red Cell Distribution Width 18.5, Platelet Count 320, Mean Platelet Volume 10.2 04/22/20 17:13: D-Dimer 9.51, Sodium Level 133, Potassium Level 5.7, Chloride Level 104, Carbon Dioxide Level 14, Anion Gap 15, Blood Urea Nitrogen 107, Creatinine 3.35, Estimat Glomerular Filtration Rate 19, BUN/Creatinine Ratio 32, Glucose Level 283, Lactic Acid Level 1.19, Calcium Level 8.0, Corrected Calcium 8.5, Magnesium Level 2.4, Total Bilirubin 0.4, Aspartate Amino Transf (AST/SGOT) 98, Alanine Aminotransferase (ALT/SGPT) 352, Alkaline Phosphatase 161, Troponin I 8.130, Total Protein 6.8, Albumin 3.4 04/22/20 17:45: B-Type Natriuretic Peptide 4046.4 04/22/20 20:05: Glucometer 367 04/23/20 00:25: Sodium Level 134, Potassium Level 6.5, Chloride Level 105, Carbon Dioxide Level 14, Anion Gap 15, Blood Urea Nitrogen 107, Creatinine 3.27, Estimat Glomerular Filtration Rate 19, BUN/Creatinine Ratio 33, Glucose Level 256, Calcium Level 8.0, Corrected Calcium 8.6, Magnesium Level 2.4, Total Bilirubin 0.3, Aspartate Amino Transf (AST/SGOT) 98, Alanine Aminotransferase (ALT/SGPT) 310, Alkaline Phosphatase 140, Total Protein 6.7, Albumin 3.2, White Blood Count 13.1, Red Blood Count 2.96, Hemoglobin 8.3, Hematocrit 27, Mean Corpuscular Volume 91, Mean Corpuscular Hemoglobin 28, Mean Corpuscular Hemoglobin Concent 31, Red Cell Distribution Width 18.6, Platelet Count 250, Mean Platelet Volume 9.9, Neutrophils (%) (Auto) 88, Lymphocytes (%) (Auto) 5, Monocytes (%) (Auto) 7, Eosinophils (%) (Auto) 0, Basophils (%) (Auto) 0, Neutrophils # (Auto) 11.6, Lymphocytes # (Auto) 0.6, Monocytes # (Auto) 0.9, Eosinophils # (Auto) 0.0, Basophils # (Auto) 0.0, Neutrophils % (Manual) 89, Lymphocytes % (Manual) 4, Monocytes % (Manual) 6, Atypical Lymphocytes 1, Hypochromasia SLIGHT, Anisocytosis MODERATE, Microcytosis SLIGHT, Phosphorus Level 8.1 04/23/20 02:18: Blood Gas Puncture Site LEFT RADIAL, Blood Gas Patient Temperature 35.1, Arterial Blood pH 7.24, Arterial Blood Partial Pressure CO2 37, Arterial Blood Partial Pressure O2 95, Arterial Blood HCO3 15, Arterial Blood Total CO2 16.6, Arterial Blood Oxygen Saturation 97, Arterial Blood Base Excess -10.7, Al Test POSITIVE, Blood Gas Ventilator Setting YES, Blood Gas Inspired Oxygen 35 04/23/20 05:28: Glucometer 157 04/23/20 08:50: Ammonia 38 04/23/20 10:35: Sodium Level 137, Potassium Level 4.9, Chloride Level 103, Carbon Dioxide Level 21, Anion Gap 13, Blood Urea Nitrogen 107, Creatinine 3.05, Estimat Glomerular Filtration Rate 21, BUN/Creatinine Ratio 35, Glucose Level 283, Calcium Level 8.1 04/23/20 10:36: Glucometer 315 04/23/20 15:57: Glucometer 334 04/23/20 16:30: Sodium Level 137, Potassium Level 4.8, Chloride Level 101, Carbon Dioxide Level 23, Anion Gap 13, Blood Urea Nitrogen 107, Creatinine 2.96, Estimat Glomerular Filtration Rate 21, BUN/Creatinine Ratio 36, Glucose Level 311, Calcium Level 8.3 04/23/20 19:57: Glucometer 403 Discharge Home Medications: Active Scripts Active Advair Hfa 115-21 Mcg Inhaler (Fluticasone/Salmeterol) 12 Gm Hfa.aer.ad 0 Puff IH RTBID Reported Glipizide 5 Mg Tablet 5 Mg PO DAILY Furosemide 80 Mg Tablet 80 Mg PO DAILY Bupropion HCl Sr (Bupropion HCl) 150 Mg Tablet.er 150 Mg PO DAILY Lantus (Insulin Glargine,Hum.rec.anlog) 100 Unit/1 Ml Vial 18 Unit SQ DAILY Atorvastatin Calcium 40 Mg Tablet 40 Mg PO DAILY Metoprolol Tartrate 50 Mg Tablet 50 Mg PO BID Gabapentin 600 Mg Tablet 600 Mg PO TID Amlodipine Besylate 5 Mg Tablet 5 Mg PO DAILY Plavix (Clopidogrel Bisulfate) 75 Mg Tablet 75 Mg PO DAILY Lisinopril 40 Mg Tablet 40 Mg PO DAILY Xarelto (Rivaroxaban) 20 Mg Tablet 20 Mg PO DAILY Instructions to patient/family Please see electronic discharge instructions given to patient. Diagnosis/Problems Diagnosis/Problems (1) Acute on chronic respiratory failure Status: Acute (2) Lab test positive for detection of COVID-19 virus Status: Acute (3) Elevated troponin Status: Acute (4) Non-compliance Status: Acute (5) CHF (congestive heart failure) Status: Acute (6) COPD (chronic obstructive pulmonary disease) Status: Acute (7) Diastolic heart failure (8) Non-insulin dependent type 2 diabetes mellitus (9) CAD (coronary artery disease) (10) Oxygen dependent Status: Acute (11) NSTEMI (non-ST elevated myocardial infarction) Status: Acute (12) Hypoxia Status: Acute (13) Elevated troponin Status: Acute Clinical Quality Measures DVT/VTE Risk/Contraindication: Risk Factor Score Per Nursin RFS Level Per Nursing on Admit: 4+=Very High MAURICIO OSEGUERA DO Apr 23, 2020 10:52
[2020-04-23 12:19] LABS: CALCIUM 8.1 MG/DL (8.5-10.1); CREATININE SERUM 3.05 MG/DL (0.60-1.30); POTASSIUM 4.9 MMOL/L (3.6-5.0)
[2020-04-23 16:51] LABS: CALCIUM 8.3 MG/DL (8.5-10.1); CREATININE SERUM 2.96 MG/DL (0.60-1.30); POTASSIUM 4.8 MMOL/L (3.6-5.0)
--- NOTE | 2020-04-23 18:30 | NUR ---
REPORT GIVEN TO RENATA AT [facility]. PT GOING TO UN[address], ROOM [facility]. PHONE NUMBER [phone]
--- NOTE | 2020-04-23 21:18 | NUR ---
EMS HERE TO TRANSFER PATIENT. PT UP TO USE BSC AND HAD BM. PT PLACED ON BIPAP PER EMS FOR SOA AND PLACED ON STRETCHER. EMS LEFT AT [id number].
== END 2020-04-23 21:18 | disposition short-term general hospital (02) | DRG 853 ==
LOC: EDUNIT# 03:32 → ER 03:34 → ICU 05:30 → 4TH 04-18 20:22 → ICU 04-22 15:45
PROVIDERS: ADMIT Internal Medicine; ATTEND Family Medicine
PROC: 027034Z Dilation of Coronary Artery, One Artery with Drug-eluting Intraluminal Device, Percutaneous Approach (ICD-10-PCS; principal; 2020-04-16)
PROC: 4A023N7 Measurement of Cardiac Sampling and Pressure, Left Heart, Percutaneous Approach (ICD-10-PCS; 2020-04-16)
PROC: B2111ZZ Fluoroscopy of Multiple Coronary Arteries using Low Osmolar Contrast (ICD-10-PCS; 2020-04-16)
PROC: B2151ZZ Fluoroscopy of Left Heart using Low Osmolar Contrast (ICD-10-PCS; 2020-04-16)
PROC: XW033E5 Introduction of Remdesivir Anti-infective into Peripheral Vein, Percutaneous Approach, New Technology Group 5 (ICD-10-PCS; 2020-04-16)
PROC: XW13325 Transfusion of Convalescent Plasma (Nonautologous) into Peripheral Vein, Percutaneous Approach, New Technology Group 5 (ICD-10-PCS; 2020-04-17)
DX: A41.89 Other specified sepsis (principal); U07.1 COVID-19; J12.89 Other viral pneumonia; I21.4 Non-ST elevation (NSTEMI) myocardial infarction; J96.21 Acute and chronic respiratory failure with hypoxia; I50.41 Acute combined systolic (congestive) and diastolic (congestive) heart failure; I13.0 Hypertensive heart and chronic kidney disease with heart failure and stage 1 through stage 4 chronic kidney disease, or unspecified chronic kidney disease; N17.9 Acute kidney failure, unspecified; J44.0 Chronic obstructive pulmonary disease with (acute) lower respiratory infection; E87.2 Acidosis; N18.9 Chronic kidney disease, unspecified; I25.10 Atherosclerotic heart disease of native coronary artery without angina pectoris; I25.2 Old myocardial infarction; F17.210 Nicotine dependence, cigarettes, uncomplicated; E78.00 Pure hypercholesterolemia, unspecified; E11.42 Type 2 diabetes mellitus with diabetic polyneuropathy; I48.0 Paroxysmal atrial fibrillation; F41.9 Anxiety disorder, unspecified; F32.9 Major depressive disorder, single episode, unspecified; R19.7 Diarrhea, unspecified; E87.5 Hyperkalemia; I25.5 Ischemic cardiomyopathy; R34 Anuria and oliguria; R74.8 Abnormal levels of other serum enzymes; R45.1 Restlessness and agitation; Z79.01 Long term (current) use of anticoagulants; Z79.02 Long term (current) use of antithrombotics/antiplatelets; Z99.81 Dependence on supplemental oxygen; Z95.5 Presence of coronary angioplasty implant and graft; Z91.14 Patient's other noncompliance with medication regimen; Z79.84 Long term (current) use of oral hypoglycemic drugs
CPT/HCPCS: 36415; 36600; 71045; 74018; 76937; 80048; 80053; 80306; 81000; 82140; 82550; 82553; 82805; 82962; 83605; 83615; 83735; 83874; 83880; 84100; 84145; 84484; 85007; 85025; 85027; 85347; 85379; 85610; 85652; 85730; 86141; 86850; 86900; 86901; 87040; 87070; 87081; 87205; 87635; 93005; 93041; 93458; 94640; 94660; 94760; 99291